=== PATIENT | male | born 1945 | race Caucasian/White ===

== ENCOUNTER 2023-05-16 12:56 | Inpatient (IN) | payer OTHER, SELFPAY ==
[2023-05-14] VITALS (7 sets, daily range): BP systolic 95–118; BP diastolic 58–86
[2023-05-14 16:00] LABS: % Basophils 0.4 % (0-2); % Eosinophils 0.6 % (0-6); % Lymphocytes 10.4 % (20.5-51.1); % Monocytes 9.2 % (1.7-9.3); % Neutrophils 78.4 % (42.2-75.2); Absolute Eosinophils 0.1 10^3/uL (0-0.7); Absolute Immature Granulocytes 0.1 10^3/uL (0-0.05); Absolute Lymphocytes 0.9 10^3/uL (1.2-3.4); Absolute Monocytes 0.8 10^3/uL (0.1-0.6); Absolute Neutrophils 6.4 10^3/uL (1.4-6.5); Hematocrit 28.1 % (39.0-52.0); Hemoglobin 9.3 g/dL (13.0-18.0); Mean Corp Hgb Conc. 33.1 g/dL (33.0-37.0); Mean Corpuscular Hgb 30.2 pg (27.0-31.0); Mean Corpuscular Volume 91.2 fL (80.0-94.0); Mean Platelet Volume 9.3 fL (7.4-10.4); Nucleated Red Blood Cells % 0 % (-); Platelet Count 255 10^3/uL (130-400); Red Blood Cell Count 3.08 10^6/uL (4.70-6.10); Red Cell Dist. Width 15.6 % (11.5-14.5); White Blood Cell Count 8.2 10^3/uL (4.8-10.8)
[2023-05-14 16:13] LABS: ALT (SGPT) 24 U/L (0-50); AST (SGOT) 31 U/L (17-59); Albumin 3.1 g/dl (3.5-5.0); Alkaline Phosphatase 85 U/L (38-126); Blood Urea Nitrogen 27 mg/dl (9-20); Calcium 8.7 mg/dl (8.4-10.2); Carbon Dioxide 25 mmol/L (22-30); Chloride 103 mmol/L (98-107); Glucose 120 mg/dl (70-99); Potassium 4.2 mmol/L (3.5-5.1); Sodium 135 mmol/L (135-145); Total Bilirubin 0.7 mg/dl (0.2-1.3); Total Protein 5.5 g/dl (6.3-8.2); eGFR > 60.00
[2023-05-14 16:24] LABS: Troponin I < 0.012 ng/ml
[2023-05-14 19:51] LABS: Troponin I < 0.012 ng/ml
--- NOTE | 2023-05-14 20:11 | ED.GENMED ---
History of Present Illness
General
Chief Complaint: Dizziness
Source: patient
Exam Limitations: none
Time Seen by Provider: 05/14/23 18:53
Nursing documentation reviewed up to this point in time: agreed with
Travel History
Have you had any contact with someone who has COVID-19?: No
Do you have any symptoms of coronavirus? Fever > 100 degrees, chills, cough, shortness of breath, sore throat, loss of taste or smell, muscle aches, or headache?: No
History of Present Illness
History of Present Illness:
77-year-old male with a past medical history of CHF, hypertension, hyperlipidemia, diabetes who presents to the emergency room for evaluation of dizziness. Patient reports onset of symptoms this morning around 10 or 11 AM and they have been
constant since that time. Patient reports feeling lightheaded 'like he might pass out.' He denies any room spinning sensation. No nausea or vomiting. He denies any headache. No abdominal or flank pain. He denies any chest pain or shortness of
breath and does not have any palpitations. He says he was admitted 2 or [address] [facility] for similar symptoms.
Past History
Past History
ED Past Medical History: CVA, GERD, HTN and NIDDM
ED Past Surgical History: Cholecystectomy, Orthopedic and Other (Gastric bypass)
Patient has exhibited threatening behavior?: No
PSI?: No
Social History
Tobacco: Former smoker
Alcohol: None
Drug: None
Personal:
Living: with family
Employment: Not employed
Family History
Family History: Other (Noncontributory)
Review of Systems
Review of Systems
All Other Systems: ROS reviewed and negative except as documented in HPI and ROS
Constitutional: Denies fever or chills
EENT: Denies sore throat or runny nose
Respiratory: Denies cough or trouble breathing
Cardiac: Denies chest pain, diaphoresis or palpitations
ABD/GI: Denies abdominal pain, nausea, vomiting or diarrhea
: Denies flank pain
Musculoskeletal: Denies neck pain or back pain
Neurological: Reports dizzy; Denies headache, weakness or numbness
Phy Exam
Physical Exam
Physical Exam:
General: Awake, alert, oriented x3; no acute distress
Head: Normocephalic, atraumatic
Eyes: Conjunctiva normal, EOMI, pupils equal round reactive to light bilaterally
Throat: Airway intact, handling secretions
Neck: Trachea midline, supple without meningismus
Lungs: Clear to auscultation bilaterally, no wheezing, rales, rhonchi
Heart: Regular rate and rhythm, no murmurs, gallops, or rubs
Abd: Soft, non distended, nontender
Rectal: No rectal masses, brown stool Hemoccult negative
Neuro: Cranial nerves grossly intact, speech fluid
Skin: no rash
Extremities: Patient has some edema in the right forearm and some erythema on the dorsum of the right forearm with tenderness to the touch; good pulses in all extremities, no edema in the lower extremities
Scores
Heart Failure Risk
Heart Failure Risk Score: Not Applicable
Heart Score for Chest Pain Patients
STEMI patient?: Not applicable
Withdrawal Assessment of Alcohol
Withdrawal Assessment Completed?: Not applicable
Course
Orders/Labs/Results
Orders:
Orders
05/14/23 15:40
Electrocardiogram (*1) Urgent
Reason for Study: Vertigo / Dizzy
EKG- Treatment ONCE
05/14/23 15:51
CMP [Comprehensive Metabolic Panel] Urgent
Complete Blood Count/With Diff Urgent
Troponin I Urgent
05/14/23 19:07
US Periph Venous UPPER Ext RT Urgent
Comment:
Reason For Exam: RUE redness and swelling
05/14/23 19:18
Troponin I Urgent
05/14/23 20:30
Type+Screen Urgent
PTT Urgent
Prothrombin Time Urgent
Abnormal Lab Results
05/14/23 05/14/23
15:51 20:30
RBC 3.08 L 10^6/uL
(4.70-6.10)
Hgb 9.3 L g/dL
(13.0-18.0)
Hct 28.1 L %
(39.0-52.0)
RDW 15.6 H %
(11.5-14.5)
Abs Immat Gran (auto) 0.1 H 10^3/uL
(0-0.05)
Absolute Lymphs (auto) 0.9 L 10^3/uL
(1.2-3.4)
Absolute Monos (auto) 0.8 H 10^3/uL
(0.1-0.6)
Immature Gran % 1.0 H %
(0-0.5)
Neutrophils % 78.4 H %
(42.2-75.2)
Lymphocytes % 10.4 L %
(20.5-51.1)
PT 15.0 H Sec
(11.4-14.6)
BUN 27 H mg/dl
(9-20)
Glucose 120 H mg/dl
(70-99)
Total Protein 5.5 L g/dl
(6.3-8.2)
Albumin 3.1 L g/dl
(3.5-5.0)
05/14/23 15:51
05/14/23 15:51
Vital Signs
Initial and Last Documented VS:
Initial Vital Signs
Temp Pulse Resp BP Pulse Ox
37.1 C 71 16 95/59 99
05/14/23 15:40 05/14/23 15:40 05/14/23 15:40 05/14/23 15:40 05/14/23 15:40
Last Documented Vital Signs
Temp Pulse Resp BP Pulse Ox
37.1 C 69 15 101/65 99
05/14/23 15:40 05/14/23 20:30 05/14/23 20:28 05/14/23 20:28 05/14/23 20:30
MDM/Problems Addressed
Differential Diagnosis Includes:
Dysrhythmia, symptomatic anemia, electrolyte derangement, vagal event, hypoglycemia, dehydration
MDM/Problems Addressed:
77-year-old male presents after a few hours of dizziness today that has since resolved. He now feels fine and is asymptomatic. He did have a slightly low blood pressure in triage 95/59 which is normalized by my assessment; vital signs otherwise
within normal limits. His physical exam is as above. Plan to place an IV check labs including a CBC and a CMP; will check troponins given his cardiac risk factors although with no chest pain or dyspnea an acute cardiac event seems unlikely. Will
monitor closely reassess after the above.
Initial labs reviewed: CBC shows anemia to 9.3�this is new compared to prior labs drawn here in April 2023 (last hemoglobin was 04/02/2023 and it was 13.7 although in the past he has had his hemoglobins ranging between 10 and 12). I did call over
to [facility] to ask about hemoglobin during his most recent admission 2 weeks ago�apparently on May 01 at discharge had hemoglobin of 9.5. No significant change compared to 2 weeks ago. He is Hemoccult here is negative he has no bleeding.
Right upper extremity ultrasound shows extensive acute occlusive thrombosis throughout the right cephalic vein in the right forearm. No DVT. Given extent incompletely occlusive thrombus discussed case with hematology who did recommend
anticoagulation with Eliquis 5 mg twice daily x 6 weeks despite lack of DVT. Patient says that he was previously on Eliquis for atrial fibrillation but is unsure if he is on it still. Will provide 5 mg dose now. I had a long discussion with the
patient although he was initially feeling bit better he says he started to feel dizzy again and is concerned about his ability to get around now at home because of this. With persistent symptoms and new anemia at least since early April
(although not acutely changed compared to 2 weeks ago) we will admit for continued evaluation and monitoring. Discussed with hospitalist for admission.
*Radiology
Radiology exam reviewed: radiology read reviewed
*Pulse Oximetry
Patient hypoxic: no
*EKG
Interpreted by ED Provider?: Yes
Heart Rate: 71
Rate: normal
Rhythm: sinus
[place]: normal axis
Interval: normal interval
QRS Pattern: normal QRS
Ischemia: no ischemia
*Critical Care Note
Total Time (30-74mins, 75-104mins- exclusive of procedures): Not Applicable
Data Reviewed
Review of Other/Old Records Reveals: Labs and Records
Source: patient
Patient Management
Discussion with other providers: Hospitalist (Discussed with hospitalist) and Manager Communication (Discussed with hematology)
Escalation/DeEscalation of care consider admission/obs:
Admission indicated
ED Attending Note
-
Portions of this chart may have been created with voice recognition software.� Occasional wrong word or��sound alike� substitutions may have occurred due to the inherent limitations of voice recognition software.
Discharge Plan
Departure
Prescriptions:
No Action
ferrous sulfate [FeroSul] 325 MG tablet
325 mg PO HS
metformin 1,000 MG tablet
1,000 mg PO DAILY
gabapentin 100 MG capsule
200 mg PO TID
Myrbetriq 25 MG tablet extended release 24 hr
25 mg PO DAILY
aspirin 81 MG tablet,delayed release (DR/EC)
81 mg PO DAILY
Rx Instructions:
over the counter
losartan 25 mg Tablet
25 mg PO HS 30 Days Qty: 30 0RF
cyanocobalamin (vitamin B-12) 100 mcg Tablet
100 mcg PO DAILY
citalopram 40 mg Tablet
40 mg PO DAILY
pravastatin 40 mg Tablet
40 mg PO HS
tamsulosin 0.4 mg Capsule
0.4 mg PO HS
magnesium 200 mg Tablet
200 mg PO DAILY
cholecalciferol (vitamin D3) 25 mcg (1,000 unit) Tablet
25 mcg PO DAILY
sildenafil [Viagra] 25 mg Tablet
25 mg PO DAILY PRN (Reason: ED)
spironolactone 25 mg Tablet
25 mg PO DAILY Qty: 30 0RF
aripiprazole 15 mg Tablet
30 mg PO DAILY Qty: 30 0RF
furosemide [Lasix] 40 mg Tablet
60 mg PO DAILY
venlafaxine 150 mg Capsule,Extended Release 24hr
150 mg PO DAILY
trazodone 100 mg tablet
100 mg PO HS
docusate sodium 100 mg Capsule
100 mg PO BID PRN (Reason: constipation)
tramadol 50 mg Tablet
50 mg PO BID PRN (Reason: moderate pain) 7 Days Qty: 14 0RF
Patient Comments:
07/06/2022: last filled 06/26/22, 20 tabs for 10 days from [facility]
amoxicillin-pot clavulanate 875-125 mg tablet
1 tab PO BID Qty: 7 0RF
Referrals:
William Renner DO [Family Provider] -
Interventions
Interventions:
*ED COVID-19 Vaccine History Last Done: 05/14/23 15:47
ED- Neurological Assessment Last Done: 05/14/23 19:25
ED- Cardiac Assessment Last Done: 05/14/23 19:25
ED Swallowing Screen Last Done: 05/14/23 19:27
[2023-05-14 20:51] LABS: INR 1.15
[2023-05-14 20:52] LABS: APTT 30.6 Sec (23.4-35.0)
[2023-05-14] MEDS: NSS 500 IV (22:27)
[2023-05-14 22:50] LABS: Iron 34 ug/dl (49-181)
[2023-05-14 22:59] LABS: Percent Saturation 10 % (20-50); Total Iron Binding Capacity 310 ug/dl (261-462)
--- NOTE | 2023-05-14 22:59 | HPS.HSE ---
Addendum entered and electronically signed by MANDA Kaplan 05/15/23 16:08:
hxt of atrial fib.
-EKG with NSR with PAC's
-as per patient follows PCP for atrial fib
-on Eliquis for atrial fib
Addendum entered and electronically signed by Papa Guerrero DO 05/15/23 00:00:
Patient seen and examined independently. Agree with findings and plan as set forth by MANDA Kaplan.
Patient is a 77y M with PMH significant for CHF, HTN and A-Fib who presents to ED complaining of lightheadedness since early this AM. Patient denies any syncope or fall. No room spinning sensation / dizziness. No chest pain, dyspnea,
palpitations, etc. Patient also notes RUE swelling - which he states has been present for months and began following IV occlusion during his prior admission here in July.
Ass:
Lightheadedness
RUE Occlusive Thrombus - Probably Chronic
Iron Deficiency Anemia
Chronic HFpEF
ASCVD
Paroxysmal Atrial Fibrillation
Benign Hypertension
DM-II
GERD
Anxiety / Depression
Chronic Right Foot Drop
Plan:
Observe overnight for further evaluation and treatment.
Etiology of lightheaded sensation is unclear. Doubt it is related to incidental diagnosis of RUE thrombosis.
Monitor on tele overnight.
Hold diuretics acutely.
Follow orthostatic signs.
PT / OT evaluations.
Continue on Eliquis for now - Consult Hematology for other recommendations re: RUE thrombus / alternate agent / etc.
Monitor for any new / recurrent symptoms.
Original Note:
Family Physician
-
Family Physician: William Renner
Chief Complaint
-
dizzy
lightheaded
History of Present Illness
77-year-old male with a past medical history of CHF, hypertension, hyperlipidemia, diabetes ,atrial fib who presents to the emergency room for evaluation of dizziness.�stated lightheaded. since this morning. He denies any room spinning sensation.�
No nausea or vomiting.� He denies any headache.� No abdominal or flank pain.� He denies any chest pain or shortness of breath and does not have any palpitations. denied dysuria or hematuria.
stated right UE edema for long time since the previous admission here. his iv was occluded. he had right UE swelling since then. denied any right hand pain. started on eliquis for EXTENSIVE ACUTE OCCLUSIVE THROMBOSIS throughout the RIGHT CEPHALIC
VEIN in the RIGHT FOREARM.
admitting for further management.
Medical History
Past Medical History
Past Medical History: Reports Other
Additional Past Medical History:
chf
atrial fib
CAD
CVA
chronic right foot drop
htn
DM2
GERD
depression, anxiety
Past Surgical History: Reports Other
Additional Past Surgical History:
cholecystectomy
gastric bypass
Social History
Tobacco: Non-smoker
Alcohol: None
Drug: None
Personal:
Living: With Family
Family History
Family History: Not pertinent
Allergies / Home Medications
Allergies reflects when Allergies were last updated in [facility].
Home Medications with original date entered in [facility]
Allergy/Medication List:
Allergies
Allergy/AdvReac Type Severity Reaction Status Date / Time
meperidine HCl [From Demerol] Allergy gets hyper Verified 05/14/23 15:47
ondansetron [From Zofran] Allergy N/V Verified 05/14/23 15:47
Home Medications
ferrous sulfate 325 mg (65 mg iron) tablet (FeroSul) 325 mg PO HS Supplement 04/28/19
metformin 1,000 mg tablet 1,000 mg PO DAILY Diabetes 04/28/19
gabapentin 100 mg capsule 200 mg PO TID Neurological Condition 10/30/21
mirabegron 25 mg tablet,extended release 24 hr (Myrbetriq) 25 mg PO DAILY Urinary issue 10/30/21
aspirin 81 mg tablet,delayed release 81 mg PO DAILY Blood clot prevention/tx 10/31/21
losartan 25 mg tablet 25 mg PO HS 30 days #30 tabs 11/18/21
cholecalciferol (vitamin D3) 25 mcg (1,000 unit) tablet 25 mcg PO DAILY Supplement 01/06/22
citalopram 40 mg tablet 40 mg PO DAILY Mental Health/Anxiety 01/06/22
cyanocobalamin (vitamin B-12) 100 mcg tablet 100 mcg PO DAILY Supplement 01/06/22
magnesium 200 mg tablet 200 mg PO DAILY Supplement 01/06/22
pravastatin 40 mg tablet 40 mg PO HS High cholesterol 01/06/22
sildenafil 25 mg tablet (Viagra) 25 mg PO DAILY PRN ED 01/06/22
tamsulosin 0.4 mg capsule 0.4 mg PO HS Urinary issue 01/06/22
aripiprazole 15 mg tablet 30 mg PO DAILY #30 tabs 01/11/22
spironolactone 25 mg tablet 25 mg PO DAILY #30 tabs 01/11/22
docusate sodium 100 mg capsule 100 mg PO BID PRN constipation 07/06/22
furosemide 40 mg tablet (Lasix) 60 mg PO DAILY Fluid retention/Swelling 07/06/22
trazodone 100 mg tablet 100 mg PO HS Mental Health/Anxiety 07/06/22
venlafaxine 150 mg capsule,extended release 24 hr 150 mg PO DAILY Mental Health/Anxiety 07/06/22
tramadol 50 mg tablet 50 mg PO BID PRN moderate pain 7 days #14 tabs 07/07/22
amoxicillin 875 mg-potassium clavulanate 125 mg tablet 1 tab PO BID #7 tabs 08/06/22
Review of Systems
-
Constitutional: Reports No Symptoms
EENT: Reports No Symptoms
Respiratory: Reports No Symptoms
Cardiac: Reports No Symptoms
Abdomen/GI: Reports No Symptoms
: Reports No Symptoms
Musculoskeletal: Reports No Symptoms
Skin: Reports No Symptoms
Neurological: Reports Dizzy
Endocrine: Reports No Symptoms
Hematologic/Lymphatic: Reports No Symptoms
Psych: Reports No Symptoms
Physical Exam
Vital Signs
Vital Signs
Temp Pulse Resp BP Pulse Ox
98.8 F 67 19 96/59 97
05/14/23 15:40 05/14/23 22:45 05/14/23 22:45 05/14/23 22:00 05/14/23 22:45
Physical Exam
General: Well Developed, Well Nourished and No Apparent Distress
HEENT: NormoCephalic, Moist mucous membranes and Atraumatic
Respiratory: Clear
Cardiac: S1/S2 and Regular Rhythm; No Murmur or Rub
GI: Soft, Non Tender, Non Distended and Normal Bowel Sounds; No Organomegaly
Rectal: Deferred by Provider
Musculoskeletal: No Clubbing, No Cyanosis and Other (righ arm swelling)
Skin: No Rash
Neuro: AO x 3 and Nonfocal/grossly intact
Psych: Calm
Laboratory Results
-
05/14/23 15:51
05/14/23 15:51
Laboratory Results
PT 15.0 Sec (11.4-14.6) H 05/14/23 20:30
INR 1.15 05/14/23 20:30
APTT 30.6 Sec (23.4-35.0) 05/14/23 20:30
Total Bilirubin 0.7 mg/dl (0.2-1.3) 05/14/23 15:51
AST 31 U/L (17-59) 05/14/23 15:51
ALT 24 U/L (0-50) 05/14/23 15:51
Alkaline Phosphatase 85 U/L (38-126) 05/14/23 15:51
Troponin I < 0.012 ng/ml 05/14/23 19:18
Data Reviewed
-
Ultrasound: Report Reviewed by me
Lab Data: Labs Reviewed by me
Impression/Plan
-
#right UE thrombus in cephalic vein
-eliquis 5mg bid
-duplex with EXTENSIVE ACUTE OCCLUSIVE THROMBOSIS throughout the RIGHT CEPHALIC VEIN in the RIGHT FOREARM.
#dizzy/lightheaded
-obtain orthostatics
-PT/OT consult
#iron def anemia
-hgb 9.3
-iron 34, TIBC, ferritin,b12, folate pending
-heme test negative
-ferrous sulfate continued
#HX chr HFpEF
- on PO Lasix, Aldactone� and Losartan
-not in acute exacerbation
#Constipation -
- cont OP bowel regimen.
#CAD -with prior stenting in 1999.
#HX stroke -in the year 2019
#HLD
- on ASA and -on Pravastatin
#Chronic right foot drop -unclear if due to peripheral neuropathy versus prior stroke.�
-He uses a brace/walker
#Essential hypertension
-BP on soft side
#DM2
HgA1c 6.7
-continue metformin
- SSI.�
#GERD
-on omeprazole.
#Depression/anxiety -continue Abilify, venlafaxine, citalopram.
full code
[2023-05-15] VITALS (10 sets, daily range): BP systolic 99–136; BP diastolic 53–85; PULSE 68–117; O2SAT 98; BMI 30.5
[2023-05-15 00:43] LABS: Glucose - Point of Care 153 mg/dl (70-99)
[2023-05-15 04:00] LABS: Ferritin 16.9 ng/ml (17.9-464.0)
[2023-05-15 04:32] LABS: Folate 7.5 ng/ml (2.76-20); Vitamin B12 684 pg/ml (239-931)
[2023-05-15 08:07] LABS: Hematocrit 27.2 % (39.0-52.0); Hemoglobin 9.1 g/dL (13.0-18.0); Mean Corp Hgb Conc. 33.5 g/dL (33.0-37.0); Mean Corpuscular Hgb 32.2 pg (27.0-31.0); Mean Corpuscular Volume 96.1 fL (80.0-94.0); Platelet Count 184 10^3/uL (130-400); Red Blood Cell Count 2.83 10^6/uL (4.70-6.10); Red Cell Dist. Width 15.4 % (11.5-14.5); White Blood Cell Count 5.4 10^3/uL (4.8-10.8)
[2023-05-15 08:28] LABS: Glucose - Point of Care 168 mg/dl (70-99)
[2023-05-15 08:33] LABS: Blood Urea Nitrogen 22 mg/dl (9-20); Calcium 8.8 mg/dl (8.4-10.2); Carbon Dioxide 27 mmol/L (22-30); Chloride 105 mmol/L (98-107); Estimated Creatinine Clearance 78 ml/min; Glucose 124 mg/dl (70-99); Potassium 4.3 mmol/L (3.5-5.1); Sodium 136 mmol/L (135-145); eGFR > 60.00
[2023-05-15] MEDS: MYRBETRIQ EXTENDED RELEASE 25 MG PO (08:47)
[2023-05-15] MEDS: CELEXA 40 MG PO (08:47)
[2023-05-15] MEDS: NEURONTIN 200 MG PO ×2 (08:47→16:18)
[2023-05-15] MEDS: ASPIR LOW (ENTERIC COATED) 81 MG PO (08:47)
[2023-05-15] MEDS: MAGNESIUM OXIDE 250 MG PO (08:47)
[2023-05-15] MEDS: VITAMIN D3 (cholecalciferol) 1000 UNITS PO (08:48)
[2023-05-15] MEDS: VITAMIN B-12 100 MCG PO (08:48)
[2023-05-15] MEDS: ABILIFY 30 MG PO (08:48)
[2023-05-15] MEDS: GLUCOPHAGE 1000 MG PO (08:48)
[2023-05-15] MEDS: EFFEXOR XR 150 MG PO (08:48)
[2023-05-15] MEDS: ELIQUIS 5 MG PO (08:48)
--- NOTE | 2023-05-15 09:34 | PTCARENOTE ---
symptomatic orthostatic hypotension when checking his vitals around 0900. pt was 136/69 sitting w/ 75 HR and standing was dizzy with a 116/82 bp and 85 HR. it is charted in his worklist.
[2023-05-15 11:18] LABS: Glucose - Point of Care 115 mg/dl (70-99)
[2023-05-15 12:35] LABS: Glycohemoglobin (HgbA1c) 5.6 % (4.0-5.6)
--- NOTE | 2023-05-15 14:14 | PTCARENOTE ---
per patients daughter he has not remembered to take his eliquis since 05/10. she also stated that on telehealth stream yesterday PCP was going to start her father on a 'memory aid' medication. patient and daughter were not aware of the name of the
medication. this nurse called patient pharmacy and they stated they have not received any new prescriptions for this patient.
--- NOTE | 2023-05-15 15:54 | W.PN.HOSP.TC ---
Today's Communication/Plan
-
monitor ortho vitals
hold BP meds
continue pt/ot
Assessment / Plan
Assessment / Plan
# Orthostatic hypotension
Chronic dizziness
-Patient have ongoing problems with dizziness for for few months.
-suspecting component of orthostasis as patient states her blood pressure dropped 15 points on vital checks, although cannot fully classify as orthostasis by criteria suspecting some component present explain symptoms
-Would hold patient all blood pressure medication
-Compression stocking ordered
-Although patient unable to clarify clearly, maintaining on meclizine as needed as well
-Physical therapy evaluated patient require some support
# Right Cephalic vein thrombus
-duplex with EXTENSIVE ACUTE OCCLUSIVE THROMBOSIS throughout the RIGHT CEPHALIC VEIN in the RIGHT FOREARM.
-Patient have recent admission in [facility] and had problem with infected IV line
-continue home eliquis therapy.
# Memory problems
-Patient has been evaluated by neurology in outpatient basis and has been started on some medication, daughter does not know the name
# Chronic iron deficiency anemia
-Ferritin 17, iron 34 TIBC 310. folate/b12 within normal limit
-Stool MSAS negative
-Oral iron to continue
# Chronic diastolic congestive heart failure
-Continue on Lasix. No signs of exacerbation
Coronary disease with history of stenting
History of CVA
Hyperlipidemia
Chronic right foot drop
Essential hypertension -hold all medication for suspicion of orthostasis Hypotension
Hyperlipidemia
[id number] diabetes mellitus
GERD
Depression/anxiety
Full code
05/15 Discussed with Patient Daughter over the Phone. Patient Daughter Had Expressed Concerns about Patient Being Forgetful and Not Taking Pills at Time requiring repeated Hospitalization. Patient Spouse Is Not Able to Provide Help Due To Her Own
Issues. Patient have tried to get homeaid/nursing staff to help patient condition. Requesting different agency has some concerns with current agency staff. Will ask case briefer to address and provide resource/detail
Anticipated Discharge: Within 24 hours
Subjective/Interval History
-
Date of Service: May 15, 2023
Complaining of feeling dizzy
no associated headache/nausea/vomiting
Objective Data
-
Labs:
Laboratory Results
05/15/23
06:53
WBC 5.4
Hgb 9.1 L
Hct 27.2 L
Plt Count 184 D
Sodium 136
Potassium 4.3
Chloride 105
Carbon Dioxide 27
BUN 22 H
Creatinine 0.9
Glucose 124 H
Calcium 8.8
Vital Signs:
Vital Signs
Temp Pulse Resp BP Pulse Ox
97.7 F 70 18 112/58 99
05/15/23 11:00 05/15/23 11:00 05/15/23 11:00 05/15/23 11:00 05/15/23 11:00
I&O
05/14/23 05/15/23 05/16/23
06:59 06:59 06:59
Intake Total 360 / 360
Output Total 350 / 350
Balance 10 / 10
Review of Systems
-
Respiratory: Reports No Symptoms
Cardiac: Reports No Symptoms
Abdomen/GI: Reports No Symptoms
Neuro: Reports Dizzy
Physical Exam
-
General: Negative Appears in Distress
HEENT: Negative Oxygen
Respiratory: Clear to Auscultation
Cardiac: Regular Rhythm and S1/S2; Negative Murmur
GI: Soft, Nontender and Nondistended
Musculoskeletal: No Edema
Neuro: Awake, Alert, Oriented and No Motor Deficits
--- NOTE | 2023-05-15 17:13 | CON.ONC ---
Impression
Impression
Iron deficiency anemia
Dizziness
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
Plan
Plan
Recommend GI consult for iron deficiency anemia, Hgb drop of 4g in 6 weeks
Had recommended Eliquis for extensive UE thrombosis but would not d/c from hospital on this due to iron deficiency anemia. He is okay with using hot compresses.
Follow CBC for evidence of bleeding.
Heme check all stools.
Thank you for consult, will follow along with you.
Patient History
History of Present Illness
77-year-old male with a past medical history of CHF, hypertension, hyperlipidemia, diabetes who presents to the emergency room for evaluation of dizziness.� Patient reports onset of symptoms this morning around 10 or 11 AM and they have been
constant since that time.� Patient reports feeling lightheaded 'like he might pass out.'� He denies any room spinning sensation.� No nausea or vomiting.� He denies any headache.� No abdominal or flank pain.� He denies any chest pain or shortness of
breath and does not have any palpitations.� He says he was admitted 2 or 3 weeks ago at [facility] for similar symptoms. In ED c/o right UE edema for long time since the previous admission here when his iv was occluded. He has had
right UE swelling since then.� Case d/w ED last night with recommendation to started on Eliquis for symptomatic EXTENSIVE ACUTE OCCLUSIVE THROMBOSIS throughout the RIGHT CEPHALIC VEIN in the RIGHT FOREARM. He also has a history of iron deficiency
with 13.7 on 04/02/23, now 9.1.
Past-Medical/Surgical History
Past Medical History
chf
atrial fib
CAD
CVA
chronic right foot drop
htn
DM2
GERD
depression, anxiety
Past Surgical History
cholecystectomy
gastric bypass
Social History
Tobacco: Non-smoker
Alcohol: None
Drug: None
Personal:
Living: With Family
Family History
Family History: Not pertinent
Patient Medication
Medication Instructions Recorded Confirmed Last Taken Type
ferrous sulfate 325 mg (65 mg 325 mg PO HS Supplement 04/28/19 05/14/23 10/17/21 23:00 History
iron) tablet (FeroSul)
metformin 1,000 mg tablet 1,000 mg PO DAILY Diabetes 04/28/19 05/14/23 10/18/21 08:00 History
gabapentin 100 mg capsule 200 mg PO TID Neurological 10/30/21 05/14/23 Unknown History
Condition
mirabegron 25 mg tablet,extended 25 mg PO DAILY Urinary issue 10/30/21 05/14/23 Unknown History
release 24 hr (Myrbetriq)
aspirin 81 mg tablet,delayed 81 mg PO DAILY Blood clot 10/31/21 05/14/23 Unknown History
release prevention/tx
losartan 25 mg tablet 25 mg PO HS 30 days #30 tabs 11/18/21 05/14/23 Unknown Rx
cholecalciferol (vitamin D3) 25 25 mcg PO DAILY Supplement 01/06/22 05/14/23 Unknown History
mcg (1,000 unit) tablet
citalopram 40 mg tablet 40 mg PO DAILY Mental 01/06/22 05/14/23 Unknown History
Health/Anxiety
cyanocobalamin (vitamin B-12) 100 100 mcg PO DAILY Supplement 01/06/22 05/14/23 Unknown History
mcg tablet
magnesium 200 mg tablet 200 mg PO DAILY Supplement 01/06/22 05/14/23 Unknown History
pravastatin 40 mg tablet 40 mg PO HS High cholesterol 01/06/22 05/14/23 Unknown History
sildenafil 25 mg tablet (Viagra) 25 mg PO DAILY PRN ED 01/06/22 05/14/23 Unknown History
tamsulosin 0.4 mg capsule 0.4 mg PO HS Urinary issue 01/06/22 05/14/23 Unknown History
aripiprazole 15 mg tablet 30 mg PO DAILY #30 tabs 01/11/22 05/14/23 Unknown Rx
spironolactone 25 mg tablet 25 mg PO DAILY #30 tabs 01/11/22 05/14/23 Unknown Rx
docusate sodium 100 mg capsule 100 mg PO BID PRN constipation 07/06/22 05/14/23 Unknown History
furosemide 40 mg tablet (Lasix) 60 mg PO DAILY Fluid 07/06/22 05/14/23 Unknown History
retention/Swelling
trazodone 100 mg tablet 50 mg PO HS Mental Health/Anxiety 07/06/22 05/15/23 Unknown History
venlafaxine 150 mg 150 mg PO DAILY Mental 07/06/22 05/14/23 Unknown History
capsule,extended release 24 hr Health/Anxiety
tramadol 50 mg tablet 50 mg PO BID PRN moderate pain 7 07/07/22 05/14/23 Unknown Rx
days #14 tabs
apixaban 5 mg tablet (Eliquis) 5 mg PO BID 05/14/23 05/14/23 Unknown History
Active Medications
Generic Name Dose Route Start Last Admin
Trade Name Freq PRN Reason Stop Dose Admin
Apixaban 5 mg 05/15/23 08:00 05/15/23 08:48
Apixaban (Eliquis) 5 Mg Tablet PO 06/12/23 07:59 5 mg
BID RAVEN Administration
Aripiprazole 30 mg 05/15/23 08:00 05/15/23 08:48
Aripiprazole 15 Mg Tablet PO 06/12/23 07:59 30 mg
DAILY RAVEN Administration
Aspirin 81 mg 05/15/23 08:00 05/15/23 08:47
Aspirin 81 Mg (Enteric Coated) Tablet PO 06/12/23 07:59 81 mg
DAILY RAVEN Administration
Cholecalciferol 1,000 units 05/15/23 08:00 05/15/23 08:48
Cholecalciferol (Vitamin D3) 1,000 Units Tablet (25 Mcg) PO 06/12/23 07:59 1,000 units
DAILY RAVEN Administration
Citalopram Hydrobromide 40 mg 05/15/23 08:00 05/15/23 08:47
Citalopram 40 Mg Tablet PO 06/12/23 07:59 40 mg
DAILY RAVEN Administration
Cyanocobalamin 100 mcg 05/15/23 08:00 05/15/23 08:48
Cyanocobalamin (Vitamin B-12) 100 Mcg Tablet PO 06/12/23 07:59 100 mcg
DAILY RAVEN Administration
Dextrose 12.5 grams 05/15/23 00:32
Dextrose 50% (0.5 Grams/Ml) 50 Ml Syringe IV 06/12/23 00:31
[id number] PRN
hypoglycemia
Protocol
Docusate Sodium 100 mg 05/15/23 00:32
Docusate Sodium 100 Mg Capsule PO 06/12/23 00:31
BID PRN
constipation
Ferrous Sulfate 325 mg 05/15/23 22:00
Ferrous Sulfate 325 Mg Tablet PO 06/12/23 21:59
HS RAVEN
Gabapentin 200 mg 05/15/23 08:00 05/15/23 16:18
Gabapentin 100 Mg Capsule PO 06/12/23 07:59 200 mg
TID RAVEN Administration
Glucagon 1 mg 05/15/23 00:32
Glucagon 1 Mg Vial IM 06/12/23 00:31
PRN PRN
hypoglycemia
Protocol
Insulin Aspart 0 units 05/15/23 07:30 05/15/23 11:30
Insulin Aspart Low Resistance 300 Units/3 Ml Pen.Injctr SC 06/12/23 07:29 Not Given
AC RAVEN
Protocol
Magnesium Oxide 250 mg 05/15/23 08:00 05/15/23 08:47
Magnesium Oxide 500 Mg Tablet PO 06/12/23 07:59 250 mg
DAILY RAVEN Administration
Meclizine HCl 25 mg 05/15/23 11:11
Meclizine 25 Mg Tablet PO 06/12/23 11:10
Q8HPRN PRN
vertigo
Metformin HCl 1,000 mg 05/15/23 08:00 05/15/23 08:48
Metformin 1000 Mg Regular Release Tablet PO 06/12/23 07:59 1,000 mg
DAILY RAVEN Administration
Mirabegron 25 mg 05/15/23 08:00 05/15/23 08:47
Mirabegron Extended Release 25 Mg Tab (Non Form) PO 06/12/23 07:59 25 mg
DAILY RAVEN Administration
Pravastatin Sodium 40 mg 05/15/23 22:00
Pravastatin 40 Mg Tablet PO 06/12/23 21:59
HS RAVEN
Sodium Chloride 0 flush 05/15/23 01:00
Sodium Chloride 0.9% (Flush) Syringe IV 06/12/23 00:59
PER PROTOCOL RAVEN
Tamsulosin HCl 0.4 mg 05/15/23 22:00
Tamsulosin 0.4 Mg Capsule PO 06/12/23 21:59
HS RAVEN
Tramadol HCl 50 mg 05/15/23 00:32
Tramadol Hcl 50 Mg Tablet PO 06/12/23 00:31
BID PRN
moderate pain
Trazodone HCl 100 mg 05/15/23 22:00
Trazodone 100 Mg Tablet PO 06/12/23 21:59
HS RAVEN
Venlafaxine HCl 150 mg 05/15/23 08:00 05/15/23 08:48
Venlafaxine 150 Mg Extended Release Capsule PO 06/12/23 07:59 150 mg
DAILY RAVEN Administration
Review of Systems
-
History Source: Patient
All Other Systems: Reviewed and Negative
Physical Exam
-
General: Well Developed and Well Nourished
HEENT: Moist Mucous Membranes; Negative Jaundice
Cardiology: Normal Sinus Rhythm, S1 and S2
Pulmonary: Clear; Negative Wheezes
GI: Soft
Musculoskeletal: No Clubbing, No Cyanosis, No Edema and Other (R arm swelling)
Neurology: Non Focal
Skin: Warm and Dry
Hematologic / Lymphatic: No Lymphadenopathy
Psych: Calm and Intact Judgement/Insight
Labs
Lab Results
WBC 5.4 10^3/uL (4.8-10.8) 05/15/23 06:53
RBC 2.83 10^6/uL (4.70-6.10) L 05/15/23 06:53
Hgb 9.1 g/dL (13.0-18.0) L 05/15/23 06:53
Hct 27.2 % (39.0-52.0) L 05/15/23 06:53
MCV 96.1 fL (80.0-94.0) H 05/15/23 06:53
MCH 32.2 pg (27.0-31.0) H 05/15/23 06:53
MCHC 33.5 g/dL (33.0-37.0) 05/15/23 06:53
RDW 15.4 % (11.5-14.5) H 05/15/23 06:53
Plt Count 184 10^3/uL (130-400) D 05/15/23 06:53
MPV 10.0 fL (7.4-10.4) 05/15/23 06:53
Abs Immat Gran (auto) 0.1 10^3/uL (0-0.05) H 05/14/23 15:51
Absolute Neuts (auto) 6.4 10^3/uL (1.4-6.5) 05/14/23 15:51
Absolute Lymphs (auto) 0.9 10^3/uL (1.2-3.4) L 05/14/23 15:51
Absolute Monos (auto) 0.8 10^3/uL (0.1-0.6) H 05/14/23 15:51
Absolute Eos (auto) 0.1 10^3/uL (0-0.7) 05/14/23 15:51
Absolute Basos (auto) 0.0 10^3/uL (0-0.2) 05/14/23 15:51
Immature Gran % 1.0 % (0-0.5) H 05/14/23 15:51
Neutrophils % 78.4 % (42.2-75.2) H 05/14/23 15:51
Lymphocytes % 10.4 % (20.5-51.1) L 05/14/23 15:51
Monocytes % 9.2 % (1.7-9.3) 05/14/23 15:51
Eosinophils % 0.6 % (0-6) 05/14/23 15:51
Basophils % 0.4 % (0-2) 05/14/23 15:51
Creatinine 0.9 mg/dL (0.7-1.3) 05/15/23 06:53
05/14/23: iron sat 10%, ferritin 16.9
04/02/23: unremarkable CT A/P. Hgb 13.7
Vital Signs
Vital Signs
Temp Pulse Resp BP Pulse Ox
97.8 F 68 14 116/64 98
05/15/23 15:00 05/15/23 15:00 05/15/23 15:00 05/15/23 15:00 05/15/23 15:00
[2023-05-15 17:54] LABS: Glucose - Point of Care 130 mg/dl (70-99)
[2023-05-15] MEDS: COLACE 100 MG PO (20:29)
[2023-05-15] MEDS: FEOSOL 325 MG PO (20:31)
[2023-05-15] MEDS: PRAVACHOL 40 MG PO (20:31)
[2023-05-15] MEDS: FLOMAX 0.400000000000000022 MG PO (20:31)
[2023-05-15] MEDS: ULTRAM 50 MG PO (21:06)
[2023-05-15 21:39] LABS: Glucose - Point of Care 120 mg/dl (70-99)
[2023-05-16] VITALS (8 sets, daily range): BP systolic 85–137; BP diastolic 50–79; PULSE 62–140; O2SAT 99; BMI 29.9
[2023-05-16] MEDS: ULTRAM 50 MG PO ×2 (04:12→20:55)
--- NOTE | 2023-05-16 07:21 | CON.GI ---
Consultation
-
Date/Time Consultation Performed: 05/16/23
Performing Provider: Bob Cintron MD
Reason for Consultation: anemia
Medical History
Chief Complaint / HPI
Chief Complaint: weakness, arm swelling
History of Present Illness:
The patient is a 77-year-old male with past medical history as noted presents with worsening upper extremity swelling. He was found to have extensive thrombus and was started on Eliquis, though also noted to be significantly anemic with hemoglobin
of 9.1, which was down from 13.7 in April. He does not recall having anemia though looking back over the years he has had intermittent anemia. His last endoscopy and colonoscopy were with Dr. Awan In 2019 that were essentially normal, with
small polyp, lipomas and post gastric bypass. Studies here show iron deficiency anemia. He was hospitalized in January at [facility] with diarrhea which she states was black, though did not have any further workup then has been watching
carefully since then without any further signs of gross bleeding. Having brown stools now, denies any dysphagia, dyne aphasia, Colton pain, nausea or vomiting, weight loss.
Past Medical History
Past Medical History: Other (chf atrial fib CAD CVA chronic right foot drop htn DM2 GERD depression, anxiety)
Past Surgical History: Other (cholecystectomy gastric bypass)
Social History
Tobacco: Non-Smoker
Alcohol: None
Family History
Family History: Reviewed & Not Pertinent
Allergies / Home Medications
Allergy/AdvReac Type Severity Reaction Status Date / Time
meperidine HCl [From Demerol] Allergy gets hyper Verified 05/14/23 15:47
ondansetron [From Zofran] Allergy N/V Verified 05/14/23 15:47
Medication Instructions Recorded
ferrous sulfate 325 mg (65 mg 325 mg PO HS Supplement 04/28/19
iron) tablet (FeroSul)
metformin 1,000 mg tablet 1,000 mg PO DAILY Diabetes 04/28/19
gabapentin 100 mg capsule 200 mg PO TID Neurological 10/30/21
Condition
mirabegron 25 mg tablet,extended 25 mg PO DAILY Urinary issue 10/30/21
release 24 hr (Myrbetriq)
aspirin 81 mg tablet,delayed 81 mg PO DAILY Blood clot 10/31/21
release prevention/tx
losartan 25 mg tablet 25 mg PO HS 30 days #30 tabs 11/18/21
cholecalciferol (vitamin D3) 25 25 mcg PO DAILY Supplement 01/06/22
mcg (1,000 unit) tablet
citalopram 40 mg tablet 40 mg PO DAILY Mental 01/06/22
Health/Anxiety
cyanocobalamin (vitamin B-12) 100 100 mcg PO DAILY Supplement 01/06/22
mcg tablet
magnesium 200 mg tablet 200 mg PO DAILY Supplement 01/06/22
pravastatin 40 mg tablet 40 mg PO HS High cholesterol 01/06/22
sildenafil 25 mg tablet (Viagra) 25 mg PO DAILY PRN ED 01/06/22
tamsulosin 0.4 mg capsule 0.4 mg PO HS Urinary issue 01/06/22
aripiprazole 15 mg tablet 30 mg PO DAILY #30 tabs 01/11/22
spironolactone 25 mg tablet 25 mg PO DAILY #30 tabs 01/11/22
docusate sodium 100 mg capsule 100 mg PO BID PRN constipation 07/06/22
furosemide 40 mg tablet (Lasix) 60 mg PO DAILY Fluid 07/06/22
retention/Swelling
trazodone 100 mg tablet 50 mg PO HS Mental Health/Anxiety 07/06/22
venlafaxine 150 mg 150 mg PO DAILY Mental 07/06/22
capsule,extended release 24 hr Health/Anxiety
tramadol 50 mg tablet 50 mg PO BID PRN moderate pain 7 07/07/22
days #14 tabs
apixaban 5 mg tablet (Eliquis) 5 mg PO BID 05/14/23
Review of Systems
-
All other systems: A 12 pt ROS was Negative except as stated above in HPI
Vital Signs
Temp Pulse Resp BP Pulse Ox
97.5 F 84 20 107/63 100
05/16/23 03:55 05/16/23 03:55 05/16/23 03:55 05/16/23 03:55 05/16/23 03:55
Physical Exam
Exam
General: NAD
HEENT: MMM, anicteric, no lymphadenopathy
Heart: Regular, no murmurs
Lungs: CTA bilaterally
Abdomen: normal bowel sounds, soft, no tenderness, no rebound or guarding, no masses, bruits or ascites
Extremeties: no edema
Skin: no rashes
Results
WBC 5.4 10^3/uL (4.8-10.8) 05/15/23 06:53
Hgb 9.1 g/dL (13.0-18.0) L 05/15/23 06:53
Hct 27.2 % (39.0-52.0) L 05/15/23 06:53
MCV 96.1 fL (80.0-94.0) H 05/15/23 06:53
Plt Count 184 10^3/uL (130-400) D 05/15/23 06:53
Absolute Neuts (auto) 6.4 10^3/uL (1.4-6.5) 05/14/23 15:51
PT 15.0 Sec (11.4-14.6) H 05/14/23 20:30
INR 1.15 05/14/23 20:30
APTT 30.6 Sec (23.4-35.0) 05/14/23 20:30
Sodium 136 mmol/L (135-145) 05/15/23 06:53
Potassium 4.3 mmol/L (3.5-5.1) 05/15/23 06:53
Chloride 105 mmol/L (98-107) 05/15/23 06:53
Carbon Dioxide 27 mmol/L (22-30) 05/15/23 06:53
BUN 22 mg/dl (9-20) H 05/15/23 06:53
Creatinine 0.9 mg/dL (0.7-1.3) 05/15/23 06:53
Calcium 8.8 mg/dl (8.4-10.2) 05/15/23 06:53
Total Bilirubin 0.7 mg/dl (0.2-1.3) 05/14/23 15:51
AST 31 U/L (17-59) 05/14/23 15:51
ALT 24 U/L (0-50) 05/14/23 15:51
Alkaline Phosphatase 85 U/L (38-126) 05/14/23 15:51
Diagnostic Image Results:
Prior GI Procedures:
EGD:
Colonoscopy:
Assessment / Plan
-
1. Iron deficiency anemia: Likely multifactorial, has been intermittent over the years, in the setting of gastric bypass, though did have black stools in January, and 4 g drop since April, in need of anticoagulation, likely some component of GI
blood loss. At this point he is no gross bleeding now, and had been on Eliquis. Will plan EGD and colonoscopy on Wednesday after Eliquis washout, continue close observation for now and PPI daily given previous black stools in January.
-
-
Thank you for consultation and allowing me to participate in the patient's care. Please call the horizontal boring mill set up operator GI physician during the after hours with any questions or concerns.
[2023-05-16 07:49] LABS: Glucose - Point of Care 156 mg/dl (70-99)
[2023-05-16 08:57] LABS: Hematocrit 30.7 % (39.0-52.0); Hemoglobin 10.3 g/dL (13.0-18.0); Mean Corp Hgb Conc. 33.6 g/dL (33.0-37.0); Mean Corpuscular Hgb 32.2 pg (27.0-31.0); Mean Corpuscular Volume 95.9 fL (80.0-94.0); Mean Platelet Volume 9.9 fL (7.4-10.4); Platelet Count 215 10^3/uL (130-400); Red Cell Dist. Width 15.2 % (11.5-14.5)
[2023-05-16] MEDS: VITAMIN B-12 100 MCG PO (09:05)
[2023-05-16] MEDS: ABILIFY 30 MG PO (09:05)
[2023-05-16] MEDS: EFFEXOR XR 150 MG PO (09:05)
[2023-05-16] MEDS: VITAMIN D3 (cholecalciferol) 1000 UNITS PO (09:05)
[2023-05-16] MEDS: MYRBETRIQ EXTENDED RELEASE 25 MG PO (09:05)
[2023-05-16] MEDS: MAGNESIUM OXIDE 250 MG PO (09:05)
[2023-05-16] MEDS: GLUCOPHAGE 1000 MG PO (09:06)
[2023-05-16] MEDS: PROTONIX 40 MG PO (09:06)
[2023-05-16] MEDS: ANTIVERT 25 MG PO (09:06)
[2023-05-16] MEDS: CELEXA 40 MG PO (09:06)
[2023-05-16] MEDS: ASPIR LOW (ENTERIC COATED) 81 MG PO (09:06)
[2023-05-16 09:17] LABS: Blood Urea Nitrogen 21 mg/dl (9-20); Calcium 9.5 mg/dl (8.4-10.2); Carbon Dioxide 28 mmol/L (22-30); Chloride 100 mmol/L (98-107); Estimated Creatinine Clearance 77 ml/min; Glucose 132 mg/dl (70-99); Potassium 4.2 mmol/L (3.5-5.1); Sodium 138 mmol/L (135-145); eGFR > 60.00
--- NOTE | 2023-05-16 09:54 | CM ---
Addendum entered by Destiny Quiroga 05/16/23 14:50:
Per MD note, there has been caregivers in the home, but looking at alternative providers. Pt was switched to Inpatient status from OBS.
spoke with dtr who is not listed as contact in chart so CM could not follow up.
Original Note:
Initial assessment completed with pt at bedside.
Pt is a 77yr old male admitted on observation for orthostatic hypotension and Right Cephalic vein thrombus
At baseline, pt lives with his doretha in their own home.
Pt is indep. at baseline with mobility and ADLs and the use of a walker or cane. Drives
Pt has been to [facility] and has used [facility].
Pt to dc with no anticipated needs.
PCP; William Renner
Pharm; [facility]
PLAN; dc with no needs. Pt feels he will likely need wheelchair transport home.
[2023-05-16] MEDS: ProAmatine 5 MG PO (10:29)
[2023-05-16 12:54] LABS: Glucose - Point of Care 129 mg/dl (70-99)
--- NOTE | 2023-05-16 12:55 | W.PN.HOSP.TC ---
Today's Communication/Plan
-
change to inpatient
start oral lasix from tomorrow
f/u ortho vitals
Assessment / Plan
Assessment / Plan
# Orthostatic hypotension
Chronic dizziness
-Patient have ongoing problems with dizziness for for few months.
-suspecting component of orthostasis as patient states her blood pressure dropped 15 points on vital checks, although cannot fully classify as orthostasis by criteria suspecting some component present explain symptoms
-Would hold patient all blood pressure medication. adding midodrine 5mg bid .
-Compression stocking ordered
-Although patient unable to clarify clearly, maintaining on meclizine as needed as well if vertigo like symptoms
-Physical therapy evaluated patient require some support
# Right Cephalic vein thrombus
-duplex with EXTENSIVE ACUTE OCCLUSIVE THROMBOSIS throughout the RIGHT CEPHALIC VEIN in the RIGHT FOREARM.
-Patient have recent admission in [facility] and had problem with infected IV line
-Eliquis being held for need of EGD
# Memory problems
-Patient has been evaluated by neurology in outpatient basis and has been started on some medication, daughter does not know the name
# Chronic iron deficiency anemia
-Ferritin 17, iron 34 TIBC 310. folate/b12 within normal limit
-GI evaluated and planning to do EGD and colonoscopy on Wednesday
# Chronic diastolic congestive heart failure
-Decreasing dose of Lasix to 40 mg daily, start tomorrow.
-Avoid excessive diuresis with ongoing dizziness/orthostasis
Coronary disease with history of stenting
History of CVA
Hyperlipidemia
Chronic right foot drop
Essential hypertension -hold all medication for suspicion of orthostasis Hypotension
Hyperlipidemia
Xpw-bxijsue-oretggyjw diabetes mellitus
GERD
Depression/anxiety
Full code
05/15 Discussed with Patient Daughter over the Phone. Patient Daughter Had Expressed Concerns about Patient Being Forgetful and Not Taking Pills at Time requiring repeated Hospitalization. Patient Spouse Is Not Able to Provide Help Due To Her Own
Issues. Patient have tried to get homeaid/nursing staff to help patient condition. Requesting different agency has some concerns with current agency staff. Will ask correctional case manager to address and provide resource/detail
Anticipated Discharge: 24 - 48 hours
Subjective/Interval History
-
Date of Service: May 16, 2023
Did not have any dizziness
No other issues reported
Objective Data
-
Labs:
Laboratory Results
05/16/23
08:11
WBC 7.0
Hgb 10.3 L
Hct 30.7 L
Plt Count 215
Sodium 138
Potassium 4.2
Chloride 100
Carbon Dioxide 28
BUN 21 H
Creatinine 0.8
Glucose 132 H
Calcium 9.5
Vital Signs:
Vital Signs
Temp Pulse Resp BP Pulse Ox
97.5 F 78 20 105/65 100
05/16/23 07:37 05/16/23 07:37 05/16/23 07:37 05/16/23 10:29 05/16/23 12:25
I&O
05/15/23 05/16/23 05/17/23
06:59 06:59 06:59
Intake Total 360 / 360 1680 / 1680
Output Total 350 / 350 2350 / 2350
Balance -670 / -670
Review of Systems
-
Respiratory: Reports No Symptoms
Cardiac: Reports No Symptoms
Abdomen/GI: Reports No Symptoms
Physical Exam
-
General: Negative Appears in Distress
HEENT: Negative Oxygen
Respiratory: Clear to Auscultation
Cardiac: Regular Rhythm and S1/S2; Negative Murmur
GI: Soft, Nontender and Nondistended
Musculoskeletal: No Edema
Neuro: Awake, Alert, Oriented and No Motor Deficits
--- NOTE | 2023-05-16 18:51 | PTCARENOTE ---
182: pt arrived to floor from N to 2102. AOx3 pleasant, call abernathy in reach bed low.
[2023-05-16] MEDS: PRAVACHOL 40 MG PO (20:56)
[2023-05-16] MEDS: FLOMAX 0.400000000000000022 MG PO (20:56)
[2023-05-16] MEDS: ProAmatine PO (20:56)
[2023-05-16] MEDS: FEOSOL 325 MG PO (20:56)
[2023-05-17] VITALS (10 sets, daily range): BP systolic 78–120; BP diastolic 51–72; PULSE 71; BMI 29.8
[2023-05-17 05:36] LABS: Hematocrit 24.8 % (39.0-52.0); Hemoglobin 8.8 g/dL (13.0-18.0); Mean Corp Hgb Conc. 35.5 g/dL (33.0-37.0); Mean Corpuscular Hgb 33.3 pg (27.0-31.0); Mean Corpuscular Volume 93.9 fL (80.0-94.0); Mean Platelet Volume 9.6 fL (7.4-10.4); Platelet Count 171 10^3/uL (130-400); Red Blood Cell Count 2.64 10^6/uL (4.70-6.10); Red Cell Dist. Width 15.2 % (11.5-14.5); White Blood Cell Count 6.8 10^3/uL (4.8-10.8)
[2023-05-17 05:55] LABS: Blood Urea Nitrogen 23 mg/dl (9-20); Calcium 9.3 mg/dl (8.4-10.2); Carbon Dioxide 31 mmol/L (22-30); Chloride 100 mmol/L (98-107); Estimated Creatinine Clearance 69 ml/min; Glucose 108 mg/dl (70-99); Potassium 4.1 mmol/L (3.5-5.1); Sodium 137 mmol/L (135-145); eGFR > 60.00
--- NOTE | 2023-05-17 06:35 | W.PN.GI.CBS2 ---
Today's Communication / Plan
-
See assessment and plan for details.
Assessment / Plan
-
1. Iron deficiency anemia: Likely multifactorial, has been intermittent over the years, in the setting of gastric bypass, though did have black stools in January, and 4 g drop since April, in need of anticoagulation, likely some component of GI
blood loss. He did have 1 bloody bowel movement yesterday which was new, though none further, remains hemodynamically stable. Will plan EGD and colonoscopy, after Eliquis washout, continue close observation for now and PPI daily given previous
black stools in January. If signs of brisk active bleeding then will do CT angiogram.
Subjective
Subjective
Date of Service: May 17, 2023
Patient states that he had bloody bowel movement last night, only 1, no lightheadedness or dizziness, no fever or chills.
Objective
Data Reviewed
Laboratory Data:
Laboratory Results
05/17/23 04:53
05/17/23 04:53
Laboratory Results
PT 15.0 Sec (11.4-14.6) H 05/14/23 20:30
INR 1.15 05/14/23 20:30
APTT 30.6 Sec (23.4-35.0) 05/14/23 20:30
Total Bilirubin 0.7 mg/dl (0.2-1.3) 05/14/23 15:51
AST 31 U/L (17-59) 05/14/23 15:51
ALT 24 U/L (0-50) 05/14/23 15:51
Alkaline Phosphatase 85 U/L (38-126) 05/14/23 15:51
Vital Signs and I&O:
Vital Signs
Temp Pulse Resp BP Pulse Ox
97.6 F 69 16 103/64 96
05/17/23 03:30 05/17/23 03:30 05/17/23 03:30 05/17/23 03:30 05/17/23 03:30
I&O
05/15/23 05/16/23 05/17/23
06:59 06:59 06:59
Intake Total 360 / 360 1680 / 1680 400 / 400
Output Total 350 / 350 2350 / 2350 1225 / 1225
Balance - / - -825 / -825
Physical Exam
Physical Exam
General: NAD
Abdomen: normal bowel sounds, soft, no tenderness, no masses or bruits, no ascites
[2023-05-17 07:52] LABS: Glucose - Point of Care 114 mg/dl (70-99)
[2023-05-17] MEDS: MAGNESIUM OXIDE 250 MG PO (08:26)
[2023-05-17] MEDS: VITAMIN D3 (cholecalciferol) 1000 UNITS PO (08:26)
[2023-05-17] MEDS: EFFEXOR XR 150 MG PO (08:26)
[2023-05-17] MEDS: LASIX 40 MG PO (08:26)
[2023-05-17] MEDS: ABILIFY 30 MG PO (08:26)
[2023-05-17] MEDS: ASPIR LOW (ENTERIC COATED) 81 MG PO (08:26)
[2023-05-17] MEDS: GLUCOPHAGE 1000 MG PO (08:27)
[2023-05-17] MEDS: VITAMIN B-12 100 MCG PO (08:27)
[2023-05-17] MEDS: PROTONIX 40 MG PO (08:27)
[2023-05-17] MEDS: MYRBETRIQ EXTENDED RELEASE 25 MG PO (08:27)
[2023-05-17] MEDS: CELEXA 40 MG PO (08:27)
[2023-05-17] MEDS: ProAmatine 5 MG PO ×2 (08:29→17:17)
[2023-05-17 11:48] LABS: Glucose - Point of Care 119 mg/dl (70-99)
--- NOTE | 2023-05-17 12:43 | W.PN.HOSP.TC ---
Today's Communication/Plan
-
EGD/Colon in AM
monitor dizziness/orthostatics
Assessment / Plan
Assessment / Plan
Assessment:
Orthostatic hypotension
Chronic dizziness
- Midodrine started
- BP meds: Losartan, Aldactone on hold
- continue compression therapy
- PT/OT - home/VN
Right Cephalic vein thrombus
- duplex with EXTENSIVE ACUTE OCCLUSIVE THROMBOSIS throughout the RIGHT CEPHALIC VEIN in the RIGHT FOREARM.
- Patient have recent admission in [facility] and had problem with infected IV line
- Eliquis being held for need of EGD
Memory problems
- Patient has been evaluated by neurology in outpatient basis and has been started on some medication, daughter does not know the name
Chronic iron deficiency anemia
- Ferritin 17, iron 34 TIBC 310. folate/b12 within normal limit
- GI following, for EGD/Colon Wednesday
Chronic diastolic congestive heart failure
- reduced Lasix to 40mg from 60mg
- monitor
Coronary disease with history of stenting
History of CVA
Hyperlipidemia
- continue ASA/Statin
Chronic right foot drop
- continue Gabapentin
Essential hypertension - hold all medication for suspicion of orthostasis Hypotension
[id number]-twqbpyyqe diabetes mellitus
- continue Metformin
GERD
- continue PPI
Depression/anxiety
- continue Abilify/Celexa/Venlafaxine
DVT ppx: SCDs
Code: Full
Anticipated Discharge: 24 - 48 hours
Subjective/Interval History
-
Date of Service: May 17, 2023
no new complaints presently
reports dizziness has improved
Objective Data
-
Labs:
Laboratory Results
05/17/23
04:53
WBC 6.8
Hgb 8.8 L
Hct 24.8 L
Plt Count 171 D
Sodium 137
Potassium 4.1
Chloride 100
Carbon Dioxide 31 H
BUN 23 H
Creatinine 0.9
Glucose 108 H
Calcium 9.3
Vital Signs:
Vital Signs
Temp Pulse Resp BP Pulse Ox
97.7 F 71 18 110/57 98
05/17/23 11:25 05/17/23 11:25 05/17/23 11:25 05/17/23 11:25 05/17/23 11:25
I&O
05/16/23 05/17/23 05/18/23
06:59 06:59 06:59
Intake Total 1680 / 1680 400 / 400
Output Total 2350 / 2350 1225 / 1225 500 / 500
Balance -670 / -670 -825 / -825 -500 / -500
Physical Exam
-
General: No Apparent Distress
HEENT: Normocephalic and Atraumatic
Respiratory: Negative Wheezes or Rales
Cardiac: Regular Rhythm and S1/S2
GI: Soft and Nontender
Genito-urinary: No Costovertebral Tender
Musculoskeletal: No Edema
Neuro: AO x 3
Hematologic / Lymphatic: No Lymphadenopathy
Psych: Calm
Data Reviewed
-
Total Time Spent with Patient (in minutes): 47
Labs: Labs Reviewed by me
--- NOTE | 2023-05-17 14:24 | CM ---
RUE thrombus. Blood in stool. Scheduled for EGD of colon on 05/18/22. Per PT recommendation: Discharge plan of care is home. Will determine if HH VN and PT are needed.
[2023-05-17] MEDS: ULTRAM 50 MG PO (15:50)
[2023-05-17] MEDS: LIDOCAINE 4% PATCH 1 PATCH TOPICAL (16:37)
[2023-05-17 16:54] LABS: Glucose - Point of Care 105 mg/dl (70-99)
[2023-05-17] MEDS: NULYTELY SOLUTION 4 LITERS PO (17:17)
[2023-05-17] MEDS: FLOMAX 0.400000000000000022 MG PO (20:25)
[2023-05-17] MEDS: PRAVACHOL 40 MG PO (20:25)
[2023-05-17] MEDS: FEOSOL 325 MG PO (20:25)
[2023-05-17 22:05] LABS: Glucose - Point of Care 110 mg/dl (70-99)
[2023-05-18] VITALS (12 sets, daily range): BP systolic 79–119; BP diastolic 51–75; PULSE 56–141; BMI 29.5
[2023-05-18 04:14] LABS: Hematocrit 27.7 % (39.0-52.0); Hemoglobin 9.1 g/dL (13.0-18.0); Mean Corp Hgb Conc. 32.9 g/dL (33.0-37.0); Mean Corpuscular Volume 91.4 fL (80.0-94.0); Mean Platelet Volume 9.4 fL (7.4-10.4); Platelet Count 173 10^3/uL (130-400); Red Blood Cell Count 3.03 10^6/uL (4.70-6.10); Red Cell Dist. Width 15.6 % (11.5-14.5); White Blood Cell Count 6.1 10^3/uL (4.8-10.8)
[2023-05-18 04:36] LABS: Blood Urea Nitrogen 23 mg/dl (9-20); Calcium 8.9 mg/dl (8.4-10.2); Carbon Dioxide 33 mmol/L (22-30); Chloride 98 mmol/L (98-107); Estimated Creatinine Clearance 69 ml/min; Glucose 114 mg/dl (70-99); Sodium 136 mmol/L (135-145); eGFR > 60.00
[2023-05-18 06:03] LABS: Glucose - Point of Care 119 mg/dl (70-99)
--- NOTE | 2023-05-18 06:25 | PTCARENOTE ---
06:20 heme negative stool
[2023-05-18] MEDS: MAGNESIUM OXIDE 250 MG PO (08:28)
[2023-05-18] MEDS: VITAMIN D3 (cholecalciferol) 1000 UNITS PO (08:28)
[2023-05-18] MEDS: ABILIFY 30 MG PO (08:29)
[2023-05-18] MEDS: PROTONIX 40 MG PO (08:29)
[2023-05-18] MEDS: CELEXA 40 MG PO (08:29)
[2023-05-18] MEDS: EFFEXOR XR 150 MG PO (08:29)
[2023-05-18] MEDS: GLUCOPHAGE 1000 MG PO (08:29)
[2023-05-18] MEDS: ProAmatine 5 MG PO ×2 (08:30→16:17)
[2023-05-18] MEDS: LIDOCAINE 4% PATCH 1 PATCH TOPICAL (08:30)
[2023-05-18] MEDS: ASPIR LOW (ENTERIC COATED) 81 MG PO (08:30)
[2023-05-18] MEDS: VITAMIN B-12 100 MCG PO (08:30)
[2023-05-18] MEDS: MYRBETRIQ EXTENDED RELEASE 25 MG PO (08:30)
[2023-05-18] MEDS: NOVOLOG FLEXPEN-LOW RESISTANCE SC ×3 (08:37→17:12)
[2023-05-18] MEDS: LASIX PO (08:42)
[2023-05-18 11:25] LABS: Glucose - Point of Care 112 mg/dl (70-99)
--- NOTE | 2023-05-18 11:42 | W.PN.HOSP.TC ---
Today's Communication/Plan
-
for EGD/Colon Today
Assessment / Plan
Assessment / Plan
Assessment:
Orthostatic hypotension
Chronic dizziness
- Midodrine started
- BP meds: Losartan, Aldactone on hold
- continue compression therapy
- PT/OT - home/VN
Right Cephalic vein thrombus
- duplex with EXTENSIVE ACUTE OCCLUSIVE THROMBOSIS throughout the RIGHT CEPHALIC VEIN in the RIGHT FOREARM.
- Patient have recent admission in [facility] and had problem with infected IV line
- Eliquis being held for need of EGD/scope
Memory problems
- Patient has been evaluated by neurology in outpatient basis and has been started on some medication, daughter does not know the name
Chronic iron deficiency anemia
- Ferritin 17, iron 34 TIBC 310. folate/b12 within normal limit
- GI following, for EGD/Colon Today
Chronic diastolic congestive heart failure
- reduced Lasix to 40mg from 60mg
- monitor
Coronary disease with history of stenting
History of CVA
Hyperlipidemia
- continue ASA/Statin
Chronic right foot drop
- continue Gabapentin
Essential hypertension - hold all medication for suspicion of orthostasis Hypotension
Kby-nezqwgg-krdkctwmp diabetes mellitus
- continue Metformin
GERD
- continue PPI
Depression/anxiety
- continue Abilify/Celexa/Venlafaxine
DVT ppx: SCDs
Code: Full
Anticipated Discharge: 24 - 48 hours
Subjective/Interval History
-
Date of Service: May 18, 2023
no overnight events
for EGD/[place] today
Objective Data
-
Labs:
Laboratory Results
05/18/23
03:53
WBC 6.1
Hgb 9.1 L
Hct 27.7 L
Plt Count 173
Sodium 136
Potassium 4.0
Chloride 98
Carbon Dioxide 33 H
BUN 23 H
Creatinine 0.9
Glucose 114 H
Calcium 8.9
Vital Signs:
Vital Signs
Temp Pulse Resp BP Pulse Ox
97.6 F 69 15 100/58 100
05/18/23 11:18 05/18/23 11:18 05/18/23 11:18 05/18/23 11:18 05/18/23 11:18
I&O
05/17/23 05/18/23 05/19/23
06:59 06:59 06:59
Intake Total 400 / 400 2520 / 2520
Output Total 1225 / 1225 2475 / 2475
Balance -825 / -825 45 / 45
Physical Exam
-
General: No Apparent Distress
HEENT: Normocephalic and Atraumatic
Cardiac: Regular Rhythm and S1/S2
GI: Soft
Genito-urinary: No Costovertebral Tender
Neuro: AO x 3
Psych: Calm
Data Reviewed
-
Total Time Spent with Patient (in minutes): 40
Labs: Labs Reviewed by me
--- NOTE | 2023-05-18 12:13 | W.PN.UPDATE ---
Update Note
Progress Note Update
EGD/colonoscopy done
Gastric bypass anatomy
Jejunal diverticulum
Axios stent in stomach accessing excluded stomach
Colon prep poor
REC:
Clears
give colyte tonight for colonoscopy tomorrow
[2023-05-18 12:33] LABS: Glucose - Point of Care 102 mg/dl (70-99)
--- NOTE | 2023-05-18 13:58 | CM ---
EGD completed. Need to reschedule Colonoscopy due to poor bowel prep. Spoke with [facility] construction sales representative. Patient has 3 hours a week of waiver services. They would like to be contacted when patient is discharged, X
[phone]. Discharge Plan of Care: Home, need to determine if HH is needed.
--- NOTE | 2023-05-18 16:20 | W.PN.UPDATE ---
Addendum entered and electronically signed by Fernandez Sandoval MD 05/18/23 17:29:
after discussion with family, patient now agreeable. Will reorder prep and clears, NPO nichole SMITH. GI made aware.
Original Note:
Update Note
Progress Note Update
patient refusing colonoscopy tomorrow. Prep cancelled, diet advanced
[2023-05-18 17:02] LABS: Glucose - Point of Care 130 mg/dl (70-99)
[2023-05-18] MEDS: NULYTELY SOLUTION 4 LITERS PO (20:39)
[2023-05-18 21:43] LABS: Glucose - Point of Care 116 mg/dl (70-99)
[2023-05-18] MEDS: PRAVACHOL 40 MG PO (21:49)
[2023-05-18] MEDS: FLOMAX 0.400000000000000022 MG PO (21:49)
[2023-05-18] MEDS: FEOSOL 325 MG PO (21:49)
[2023-05-19 03:10] VITALS: BP 109/60
[2023-05-19 05:52] LABS: Glucose - Point of Care 112 mg/dl (70-99)
[2023-05-19 06:00] VITALS: BMI 29.5
[2023-05-19 06:35] LABS: Hematocrit 32.3 % (39.0-52.0); Hemoglobin 10.5 g/dL (13.0-18.0); Mean Corp Hgb Conc. 32.5 g/dL (33.0-37.0); Mean Corpuscular Hgb 30.8 pg (27.0-31.0); Mean Corpuscular Volume 94.7 fL (80.0-94.0); Mean Platelet Volume 9.7 fL (7.4-10.4); Platelet Count 181 10^3/uL (130-400); Red Blood Cell Count 3.41 10^6/uL (4.70-6.10); Red Cell Dist. Width 15.7 % (11.5-14.5); White Blood Cell Count 6.7 10^3/uL (4.8-10.8)
--- NOTE | 2023-05-19 06:39 | PTCARENOTE ---
Patient refused to drink anymore of Nulytely prep. He states that he can not drink anymore. Educated the importance of trying to drink more to make sure stools are clear. He states that he can not.
[2023-05-19 07:05] VITALS: BP 95/58
[2023-05-19 07:08] LABS: Blood Urea Nitrogen 22 mg/dl (9-20); Calcium 8.9 mg/dl (8.4-10.2); Carbon Dioxide 29 mmol/L (22-30); Chloride 103 mmol/L (98-107); Estimated Creatinine Clearance 69 ml/min; Glucose 114 mg/dl (70-99); Potassium 4.1 mmol/L (3.5-5.1); Sodium 136 mmol/L (135-145); eGFR > 60.00
[2023-05-19] MEDS: NOVOLOG FLEXPEN-LOW RESISTANCE SC ×3 (08:32→17:58)
[2023-05-19 08:39] LABS: Glucose - Point of Care 103 mg/dl (70-99)
[2023-05-19] MEDS: GLUCOPHAGE PO (09:48)
[2023-05-19] MEDS: LIDOCAINE 4% PATCH 1 PATCH TOPICAL (09:57)
--- NOTE | 2023-05-19 10:35 | W.PN.GI.CBS2 ---
Addendum entered and electronically signed by Floyd Oviedo MD 05/19/23 11:17:
I saw and examined the patient.
The [employer] or PA's note was reviewed and I agree with the note.
Comment: Pt frustrated with inadequate bowel prep despite 2L colyte for two days in a row. I also reviewed EGD findings. He states he had bile duct stone at [facility], which is likely reason for Axios stent acccessing his excluded stomach post gastric
bypass
ABD soft NTND
REC:
I discussed prep for IVAN and black stool (one was bloody couple days ago) and drop in Hgb vs cancelling procedure
He is agreeable to try prep with miralax/gatorade, which he has had in past
Will prep for colonoscopy tomorrow.
Original Note:
Today's Communication / Plan
-
Plan for colonoscopy tomorrow, keep on clears today
Assessment / Plan
-
Iron deficiency anemia: Likely multifactorial, has been intermittent over the years, in the setting of gastric bypass, though did have black stools in January, and 4 g drop since April, in need of anticoagulation, likely some component of GI
blood loss. He had 1 bloody bowel movement and has remained hemodynamically stable. Plan for EGD and colonoscopy, after Eliquis washout.
-EGD performed yesterday with Dr. Oviedo, showing normal esophagus, s/p gastric bypass, no source of GI bleeding identified.
-Colonoscopy aborted due to poor prep.
-Plan to repeat colonoscopy tomorrow morning with clear liquid diet and prep again tonight
-Pt had difficulty with the prep, wishes to discuss further with Dr. Oviedo
Subjective
Subjective
Date of Service: May 19, 2023
Colonoscopy aborted yesterday due to poor prep, pt still not clear this AM after prepping for repeat colo planned today.
-pt reports difficulty tolerating the prep
He c/o mild, intermittent LLQ discomfort (rated 3/10) after passing liquid stool this AM
-no fever, chills, nausea, vomiting
Objective
Data Reviewed
Laboratory Data:
Laboratory Results
05/19/23 06:10
05/19/23 06:10
Laboratory Results
PT 15.0 Sec (11.4-14.6) H 05/14/23 20:30
INR 1.15 05/14/23 20:30
APTT 30.6 Sec (23.4-35.0) 05/14/23 20:30
Total Bilirubin 0.7 mg/dl (0.2-1.3) 05/14/23 15:51
AST 31 U/L (17-59) 05/14/23 15:51
ALT 24 U/L (0-50) 05/14/23 15:51
Alkaline Phosphatase 85 U/L (38-126) 05/14/23 15:51
Vital Signs and I&O:
Vital Signs
Temp Pulse Resp BP Pulse Ox
97.4 F 68 18 95/58 97
05/19/23 07:05 05/19/23 07:05 05/19/23 07:05 05/19/23 07:05 05/19/23 07:05
I&O
05/18/23 05/19/23 05/20/23
06:59 06:59 06:59
Intake Total 2520 / 2520 3120 / 3120
Output Total 2475 / 2475 1375 / 1375
Balance 45 / 45 1745 / 1745
Physical Exam
Physical Exam
GI: Soft, Non Distended, Tender (+mild LLQ tenderness) and Normal Bowel Sounds
--- NOTE | 2023-05-19 11:08 | W.PN.HOSP.TC ---
Today's Communication/Plan
-
await colonoscopy/prep discussion by patient/GI
Assessment / Plan
Assessment / Plan
Assessment:
Orthostatic hypotension
Chronic dizziness
- Midodrine started
- BP meds: Losartan, Aldactone on hold
- continue compression therapy
- PT/OT - home/VN
Right Cephalic vein thrombus
- duplex with EXTENSIVE ACUTE OCCLUSIVE THROMBOSIS throughout the RIGHT CEPHALIC VEIN in the RIGHT FOREARM.
- Patient have recent admission in [facility] and had problem with infected IV line
- Eliquis being held for need of EGD/scope; and recommended not to resume at discharge per Dr. Terry due to anemia
Memory problems
- Patient has been evaluated by neurology in outpatient basis and has been started on some medication, daughter does not know the name
Chronic iron deficiency anemia
- Ferritin 17, iron 34 TIBC 310. folate/b12 within normal limit
- s/p EGD: no sign of active bleeding
- colonoscopy prep ongoing due to initial poor prep. GI managing prep.
Chronic diastolic congestive heart failure
- reduced Lasix to 40mg from 60mg
- monitor
Coronary disease with history of stenting
History of CVA
Hyperlipidemia
- continue ASA/Statin
Chronic right foot drop
- continue Gabapentin
Essential hypertension - hold all medication for suspicion of orthostasis Hypotension
Vbk-zgrzbda-luucszfnt diabetes mellitus
- continue Metformin
GERD
- continue PPI
Depression/anxiety
- continue Abilify/Celexa/Venlafaxine
DVT ppx: SCDs
Code: Full
Anticipated Discharge: 24 - 48 hours
Subjective/Interval History
-
Date of Service: May 19, 2023
after reviewing with patient last evening, he agreed to colonoscopy and underwent prep, this AM Rn reporting clumps of stool passed
awaiting GI input
Objective Data
-
Labs:
Laboratory Results
05/19/23
06:10
WBC 6.7
Hgb 10.5 L
Hct 32.3 L
Plt Count 181
Sodium 136
Potassium 4.1
Chloride 103
Carbon Dioxide 29
BUN 22 H
Creatinine 0.9
Glucose 114 H
Calcium 8.9
Vital Signs:
Vital Signs
Temp Pulse Resp BP Pulse Ox
97.4 F 68 18 95/58 97
05/19/23 07:05 05/19/23 07:05 05/19/23 07:05 05/19/23 07:05 05/19/23 07:05
I&O
05/18/23 05/19/23 05/20/23
06:59 06:59 06:59
Intake Total 2520 / 2520 3120 / 3120
Output Total 2475 / 2475 1375 / 1375
Balance 45 / 45 1745 / 1745
Physical Exam
-
General: No Apparent Distress
HEENT: Normocephalic and Atraumatic
Respiratory: Negative Wheezes or Rales
Cardiac: Regular Rhythm and S1/S2
GI: Soft
Genito-urinary: No Costovertebral Tender
Musculoskeletal: No Edema
Neuro: AO x 3
Hematologic / Lymphatic: No Lymphadenopathy
Psych: Calm
Data Reviewed
-
Total Time Spent with Patient (in minutes): 45
Labs: Labs Reviewed by me
[2023-05-19 11:15] VITALS: BP 89/51
[2023-05-19] MEDS: CELEXA 40 MG PO (11:16)
[2023-05-19] MEDS: ASPIR LOW (ENTERIC COATED) 81 MG PO (11:16)
[2023-05-19] MEDS: ABILIFY 30 MG PO (11:16)
[2023-05-19] MEDS: MAGNESIUM OXIDE 250 MG PO (11:17)
[2023-05-19] MEDS: EFFEXOR XR 150 MG PO (11:17)
[2023-05-19] MEDS: MYRBETRIQ EXTENDED RELEASE 25 MG PO (11:18)
[2023-05-19] MEDS: VITAMIN D3 (cholecalciferol) 1000 UNITS PO (11:19)
[2023-05-19] MEDS: VITAMIN B-12 100 MCG PO (11:19)
[2023-05-19] MEDS: PROTONIX 40 MG PO (11:19)
[2023-05-19] MEDS: ProAmatine 5 MG PO ×2 (11:20→17:10)
[2023-05-19] MEDS: LASIX PO (11:37)
[2023-05-19 12:07] LABS: Glucose - Point of Care 135 mg/dl (70-99)
--- NOTE | 2023-05-19 14:44 | CM ---
Met with patient. Discussed discharge plan of care to home with VN and PT services. Patient preference is [facility]. Referral to be completed.
[2023-05-19 15:05] VITALS: BP 93/61
[2023-05-19] MEDS: GAVILAX 238 GM PO (17:10)
[2023-05-19 17:48] LABS: Glucose - Point of Care 117 mg/dl (70-99)
[2023-05-19 19:30] VITALS: BP 104/63; BP 81/51; BP 96/56; PULSE 136; PULSE 88; PULSE 89
[2023-05-19 21:44] LABS: Glucose - Point of Care 111 mg/dl (70-99)
[2023-05-19] MEDS: FLOMAX 0.400000000000000022 MG PO (21:51)
[2023-05-19] MEDS: FEOSOL 325 MG PO (21:51)
[2023-05-19] MEDS: PRAVACHOL 40 MG PO (21:51)
[2023-05-19 23:52] VITALS: BP 105/50
[2023-05-20 03:10] VITALS: BP 117/67
[2023-05-20 06:22] LABS: Hemoglobin 9.2 g/dL (13.0-18.0); Mean Corp Hgb Conc. 32.9 g/dL (33.0-37.0); Mean Corpuscular Hgb 31.1 pg (27.0-31.0); Mean Corpuscular Volume 94.6 fL (80.0-94.0); Mean Platelet Volume 9.9 fL (7.4-10.4); Platelet Count 145 10^3/uL (130-400); Red Blood Cell Count 2.96 10^6/uL (4.70-6.10); Red Cell Dist. Width 15.7 % (11.5-14.5); White Blood Cell Count 6.4 10^3/uL (4.8-10.8)
[2023-05-20 06:50] LABS: Blood Urea Nitrogen 15 mg/dl (9-20); Calcium 8.5 mg/dl (8.4-10.2); Carbon Dioxide 32 mmol/L (22-30); Chloride 104 mmol/L (98-107); Estimated Creatinine Clearance 77 ml/min; Glucose 110 mg/dl (70-99); Potassium 4.2 mmol/L (3.5-5.1); Sodium 137 mmol/L (135-145); eGFR > 60.00
[2023-05-20 07:35] VITALS: BP 111/64
[2023-05-20 08:20] LABS: Glucose - Point of Care 113 mg/dl (70-99)
[2023-05-20] MEDS: MAGNESIUM OXIDE 250 MG PO (08:56)
[2023-05-20] MEDS: VITAMIN B-12 100 MCG PO (08:56)
[2023-05-20] MEDS: ProAmatine 5 MG PO ×2 (08:56→17:47)
[2023-05-20] MEDS: PROTONIX 40 MG PO (08:56)
[2023-05-20] MEDS: CELEXA 40 MG PO (08:56)
[2023-05-20] MEDS: ABILIFY 30 MG PO (08:56)
[2023-05-20] MEDS: ASPIR LOW (ENTERIC COATED) 81 MG PO (08:56)
[2023-05-20] MEDS: VITAMIN D3 (cholecalciferol) 1000 UNITS PO (08:57)
[2023-05-20] MEDS: LIDOCAINE 4% PATCH 1 PATCH TOPICAL (08:57)
[2023-05-20] MEDS: MYRBETRIQ EXTENDED RELEASE 25 MG PO (08:57)
[2023-05-20] MEDS: GLUCOPHAGE PO (08:57)
[2023-05-20] MEDS: NOVOLOG FLEXPEN-LOW RESISTANCE SC ×3 (09:06→17:48)
[2023-05-20] MEDS: EFFEXOR XR 150 MG PO (09:07)
[2023-05-20 09:57] VITALS: BMI 29.5
[2023-05-20] MEDS: ULTRAM 50 MG PO (10:12)
--- NOTE | 2023-05-20 11:14 | CM ---
PT recommendation for HH. Patient preference is [facility]. [facility], [facility]/OT.
[2023-05-20 11:46] LABS: Glucose - Point of Care 103 mg/dl (70-99)
[2023-05-20 11:55] VITALS: BP 105/68; BP 130/77; BP 74/53; PULSE 136; PULSE 72; PULSE 77
[2023-05-20 12:01] VITALS: BMI 28.8
--- NOTE | 2023-05-20 13:42 | W.PN.HOSP.TC ---
Today's Communication/Plan
-
monitor post-colonoscopy and DC likely in AM if stable
OP [facility]CAM next diagnostic step per GI
Assessment / Plan
Assessment / Plan
Assessment:
Orthostatic hypotension
Chronic dizziness
- Midodrine started
- BP meds: Losartan, Aldactone on hold
- continue compression therapy
- PT/OT - home/VN
Right Cephalic vein thrombus
- duplex with EXTENSIVE ACUTE OCCLUSIVE THROMBOSIS throughout the RIGHT CEPHALIC VEIN in the RIGHT FOREARM.
- Patient have recent admission in [facility] and had problem with infected IV line
- Eliquis being held for need of EGD/scope; and recommended not to resume at discharge per Dr. Terry due to anemia
Memory problems
- Patient has been evaluated by neurology in outpatient basis and has been started on some medication, daughter does not know the name
Chronic iron deficiency anemia
- Ferritin 17, iron 34 TIBC 310. folate/b12 within normal limit
- s/p EGD: no sign of active bleeding
- s/p colonoscopy with polyp removal and diverticulosis, no active bleeding.
Chronic diastolic congestive heart failure
- reduced Lasix to 40mg from 60mg
- monitor
Coronary disease with history of stenting
History of CVA
Hyperlipidemia
- continue ASA/Statin
Chronic right foot drop
- resume Gabapentin at discharge
Essential hypertension - hold all medication for suspicion of orthostasis Hypotension
Pcs-edcgdfz-bgchdowop diabetes mellitus
- continue Metformin
GERD
- continue PPI
Depression/anxiety
- continue Abilify/Celexa/Venlafaxine
DVT ppx: SCDs
Code: Full
Anticipated Discharge: Within 24 hours
Subjective/Interval History
-
Date of Service: May 20, 2023
s/p colonoscopy with polyp removal
Objective Data
-
Labs:
Laboratory Results
05/20/23
05:46
WBC 6.4
Hgb 9.2 L
Hct 28.0 L
Plt Count 145
Sodium 137
Potassium 4.2
Chloride 104
Carbon Dioxide 32 H
BUN 15
Creatinine 0.8
Glucose 110 H
Calcium 8.5
Vital Signs:
Vital Signs
Temp Pulse Resp BP Pulse Ox
97.7 F 77 17 130/77 100
05/20/23 11:55 05/20/23 11:55 05/20/23 11:55 05/20/23 11:55 05/20/23 11:55
I&O
05/19/23 05/20/23 05/21/23
06:59 06:59 06:59
Intake Total 3120 / 3120 480 / 480
Output Total 1375 / 1375 1495 / 1495
Balance 1745 / 1745 -1015 / -1015
Physical Exam
-
General: No Apparent Distress
HEENT: Normocephalic and Atraumatic
Respiratory: Negative Wheezes or Rales
Cardiac: Regular Rhythm
GI: Soft
Musculoskeletal: No Edema
Neuro: AO x 3
Psych: Calm
Data Reviewed
-
Total Time Spent with Patient (in minutes): 42
Labs: Labs Reviewed by me
[2023-05-20 16:42] LABS: Glucose - Point of Care 148 mg/dl (70-99)
[2023-05-20 16:48] VITALS: BP 103/57
[2023-05-20 21:03] VITALS: BP 101/51
[2023-05-20] MEDS: FLOMAX 0.400000000000000022 MG PO (21:10)
[2023-05-20] MEDS: PRAVACHOL 40 MG PO (21:10)
[2023-05-20] MEDS: FEOSOL 325 MG PO (21:11)
[2023-05-20 21:36] LABS: Glucose - Point of Care 114 mg/dl (70-99)
[2023-05-20 23:28] VITALS: BP 96/63
[2023-05-21] VITALS (7 sets, daily range): BP systolic 81–140; BP diastolic 48–82; PULSE 95–146; O2SAT 100; BMI 28.8
[2023-05-21 06:38] LABS: Hemoglobin 9.1 g/dL (13.0-18.0); Mean Corp Hgb Conc. 32.5 g/dL (33.0-37.0); Mean Corpuscular Hgb 30.5 pg (27.0-31.0); Mean Platelet Volume 10.1 fL (7.4-10.4); Platelet Count 152 10^3/uL (130-400); Red Blood Cell Count 2.98 10^6/uL (4.70-6.10); Red Cell Dist. Width 15.8 % (11.5-14.5); White Blood Cell Count 6.8 10^3/uL (4.8-10.8)
[2023-05-21 07:12] LABS: Blood Urea Nitrogen 15 mg/dl (9-20); Calcium 8.7 mg/dl (8.4-10.2); Carbon Dioxide 29 mmol/L (22-30); Chloride 104 mmol/L (98-107); Estimated Creatinine Clearance 69 ml/min; Glucose 116 mg/dl (70-99); Sodium 135 mmol/L (135-145); eGFR > 60.00
[2023-05-21 07:43] LABS: Glucose - Point of Care 141 mg/dl (70-99)
[2023-05-21] MEDS: LIDOCAINE 4% PATCH 1 PATCH TOPICAL (08:56)
[2023-05-21] MEDS: ABILIFY 30 MG PO (08:57)
[2023-05-21] MEDS: PROTONIX 40 MG PO (08:57)
[2023-05-21] MEDS: VITAMIN B-12 100 MCG PO (08:57)
[2023-05-21] MEDS: LASIX 40 MG PO (08:57)
[2023-05-21] MEDS: CELEXA 40 MG PO (08:57)
[2023-05-21] MEDS: ProAmatine 5 MG PO ×2 (08:57→16:30)
[2023-05-21] MEDS: ASPIR LOW (ENTERIC COATED) 81 MG PO (08:57)
[2023-05-21] MEDS: GLUCOPHAGE 1000 MG PO (08:57)
[2023-05-21] MEDS: EFFEXOR XR 150 MG PO (08:58)
[2023-05-21] MEDS: VITAMIN D3 (cholecalciferol) 1000 UNITS PO (08:58)
[2023-05-21] MEDS: NOVOLOG FLEXPEN-LOW RESISTANCE SC (08:58)
[2023-05-21] MEDS: MAGNESIUM OXIDE 250 MG PO (08:58)
[2023-05-21] MEDS: MYRBETRIQ EXTENDED RELEASE 25 MG PO (08:58)
--- NOTE | 2023-05-21 10:41 | W.PN.GI.CBS2 ---
Addendum entered and electronically signed by Ela Escamilla Do, MD 05/21/23 12:40:
I saw and examined the patient.
The CLINICAL TRIAL HEAD's note was reviewed and I agree with the note.
Comment: He ate 100% of lunch. No abd pain,nausea/vomiting. Vitals stable, NTTP, NABS. diffuse bruising over arms and legs. Labs reviewed. EGD/colon done on this admission reviewed
Impression
- At this juncture H/H stable
- C/w PPI
- Tolerating diet, monitor stool output
- Records from [facility] requested. Will arrange for OP FU with Dr Mo for possible stent removal outpatient basis
- Pending above also consider video capsule OP basis
- Given no clear cause of recurrent GIB found and multiple recent admissions unclear if benefits of anticoagulation outweigh the risks of recurrent GI bleeding. Ultimately defer decision to hospitalist or OP cardiology if AC should be resumed
At this juncture no new GI recs. Will sign off please call for questions.
Original Note:
Today's Communication / Plan
-
etiology of bleeding likely related to noted oozing of stent placed recently at [facility] as noted on EGD early May when Eliquis therapeutic vs other
s/p EGD and colonoscopy completed to
I requested [facility] records to office
will review with Dr. Cook and Dr. Mo for plan -- pt due in about 4 weeks for stent removal at [facility] but prefers to come here
will review need for capsule endoscopy
I spoke with daughter for updated history
trend hbg
Eliquis remains on hold
Assessment / Plan
-
Pt is a 77yo with complicated medical history CVA, CAD- stent, NIDDM, GERD, memory issues with multiple recent admission to [facility] then [facility] and now . Per family pt with hypotension also noted diarrhea and dizziness. He was noted with
afib started on Eliquis then noted in April with concern for CBD stone. He was sent to [facility] for EGDE procedure with stone removal. After discharge he returned to [facility] with black stools and concern for bleeding with some hematoma and
oozing from LAMS stent. Eliquis was resumed next day. He also continued to have issues with hypotension with que stocking, midodrine and abd binder added. He then presents 05/14 to with recurrent dizziness with hbg 9.3 down from 13.7 in
April. He completed repeat EGD and colonoscopy this admission and Eliquis remains on hold.
�EGD � - Normal esophagus.Gastric bypass with a normal-sized pouch and intact
�� � � � � � � � � � � with Axios stent accessing the excluded stomach staple line. Gastrojejunal anastomosis characterized healthy appearing mucosa - Non-bleeding jejunal diverticulum - No specimens collected.
05/20/23 colonoscopy -- A diminutive polyp was found in the transverse colon, sessile polyp, 4 mm polyp splenic flexure, large lipoma ascending, diverticulosis, prominent ileocecal valve
path with TA, TC,
-IVAN
-hx EGDE procedure at [facility] 04/2023
-hx GI bleed with admission early May at [facility] with oozing from LAMS stent
-multiple admission to [facility] with hypotension last fall
-diarrhea with admission to [facility] last fall
-gastric bypass for wt loss several years ago
-orthostatic hypotension
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
other medical problems:
- memory issues
-hx CVA
-CAD with prior stenting
-HTN
-NIDDM
-GERD
-depression/anxiety
PLAN:
etiology of bleeding likely related to noted oozing of stent placed recently at [facility] as noted on EGD early May when Eliquis therapeutic vs other
s/p EGD and colonoscopy completed to
I requested [facility] records to office
will review with Dr. Cook and Dr. Mo for plan -- pt due in about 4 weeks for stent removal at [facility] but prefers to come here
will review need for capsule endoscopy
I spoke with daughter for updated history
trend hbg
Eliquis remains on hold
Subjective
Subjective
Date of Service: May 21, 2023
05/20 greenish stools on regular diet feeling well
Objective
Data Reviewed
Laboratory Data:
Laboratory Results
05/21/23 06:05
05/21/23 06:05
Laboratory Results
PT 15.0 Sec (11.4-14.6) H 05/14/23 20:30
INR 1.15 05/14/23 20:30
APTT 30.6 Sec (23.4-35.0) 05/14/23 20:30
Total Bilirubin 0.7 mg/dl (0.2-1.3) 05/14/23 15:51
AST 31 U/L (17-59) 05/14/23 15:51
ALT 24 U/L (0-50) 05/14/23 15:51
Alkaline Phosphatase 85 U/L (38-126) 05/14/23 15:51
Vital Signs and I&O:
Vital Signs
Temp Pulse Resp BP Pulse Ox
98.2 F 88 16 125/80 97
05/21/23 07:57 05/21/23 07:57 05/21/23 07:57 05/21/23 07:57 05/21/23 07:57
I&O
05/20/23 05/21/23 05/22/23
06:59 06:59 06:59
Intake Total 480 / 480 640 / 640
Output Total 1495 / 1495
Balance -1015 / -1015 640 / 640
Physical Exam
Physical Exam
HEENT: Anicteric
Cardiology: Normal Sinus Rhythm
Pulmonary: Clear
GI: Soft, Non Distended and Non Tender
Extremities: No Edema
Neuro: Non Focal
--- NOTE | 2023-05-21 11:04 | W.PN.HOSP.TC ---
Addendum entered and electronically signed by Fernandez Sandoval MD 05/21/23 14:31:
d/w daughter Clair on OP follow up with [facility] and risk/benefit favors Eliquis resumption but there is a risk of rebleeding and instructed daughter to watch for signs of bleeding, and stop Eliquis if signs of bleeding and notify PCP. She
endorsed understanding.
Addendum entered and electronically signed by Fernandez Sandoval MD 05/21/23 13:44:
Acute on chronic anemia multifactorial due to iron deficiency and blood loss
Original Note:
Today's Communication/Plan
-
follow GI recs
monitor vitals
Assessment / Plan
Assessment / Plan
Assessment:
Orthostatic hypotension
Chronic dizziness
- Midodrine started
- BP meds: Losartan, Aldactone on hold
- continue compression therapy
- PT/OT - home/VN
hx EGDE procedure at [facility] 04/2023 with Axios stent
Right Cephalic vein thrombus
- duplex with EXTENSIVE ACUTE OCCLUSIVE THROMBOSIS throughout the RIGHT CEPHALIC VEIN in the RIGHT FOREARM.
- Patient have recent admission in [facility] and had problem with infected IV line
- no Eliquis indicated per Hematology
Memory problems
- Patient has been evaluated by neurology in outpatient basis and has been started on some medication, daughter does not know the name
Chronic iron deficiency anemia
hx GI bleed with admission early May at [facility] with oozing from LAMS stent
- Ferritin 17, iron 34 TIBC 310. folate/b12 within normal limit
- s/p EGD: no sign of active bleeding
- s/p colonoscopy with polyp removal and diverticulosis, no active bleeding.
- possible [facility] outpatient
Chronic diastolic congestive heart failure
- reduced Lasix to 40mg from 60mg
- monitor
Coronary disease with history of stenting
History of CVA
Hyperlipidemia
Parox Afib
- continue ASA/Statin
- holding Eliquis but noted not on home meds on admission
Chronic right foot drop
- resume Gabapentin at discharge
Essential hypertension - hold all medication for suspicion of orthostasis Hypotension
Ouu-aeihmbo-nxdplaxhq diabetes mellitus
- continue Metformin
GERD
- continue PPI
Depression/anxiety
- continue Abilify/Celexa/Venlafaxine
DVT ppx: SCDs
Code: Full
Anticipated Discharge: 24 - 48 hours
Subjective/Interval History
-
Date of Service: May 21, 2023
tolerating reg diet feeling well
Objective Data
-
Labs:
Laboratory Results
05/21/23
06:05
WBC 6.8
Hgb 9.1 L
Hct 28.0 L
Plt Count 152
Sodium 135
Potassium 4.0
Chloride 104
Carbon Dioxide 29
BUN 15
Creatinine 0.9
Glucose 116 H
Calcium 8.7
Vital Signs:
Vital Signs
Temp Pulse Resp BP Pulse Ox
98.2 F 88 16 125/80 97
05/21/23 07:57 05/21/23 07:57 05/21/23 07:57 05/21/23 07:57 05/21/23 07:57
I&O
05/20/23 05/21/23 05/22/23
06:59 06:59 06:59
Intake Total 480 / 480 640 / 640
Output Total 1495 / 1495
Balance -1015 / -1015 640 / 640
Physical Exam
-
General: No Apparent Distress
HEENT: Normocephalic and Atraumatic
Respiratory: Negative Wheezes or Rales
Cardiac: Regular Rhythm and S1/S2
GI: Soft
Genito-urinary: No Costovertebral Tender
Musculoskeletal: No Edema
Neuro: AO x 3
Hematologic / Lymphatic: No Lymphadenopathy
Psych: Calm
Data Reviewed
-
Total Time Spent with Patient (in minutes): 47
Labs: Labs Reviewed by me
--- NOTE | 2023-05-21 12:02 | PN.CDI ---
CDI
- -
CDI:
Physician Documentation Request
Admit Date: 05/16/23 12:56
Dear Doctor Lori,
Patient admitted with orthostatic hypotension.
05/19 GI PN: 'black stool (one was bloody couple days ago) and drop in Hgb...Iron deficiency anemia: Likely multifactorial, has been intermittent over the years, in the setting of gastric bypass, though did have black stools in January, and 4 g drop
since April'
05/20 Hospitalist PN: 'Chronic iron deficiency anemia'
04/02/23 05/14/23 05/15/23
14:11 15:51 06:53
Hgb 13.7 9.3 L 9.1 L
Based on the above, could you clarify, in your progress note, which of the following is the most likely type of anemia you are evaluating, monitoring and/or treating?
Acute on chronic anemia multifactorial due to iron deficiency and blood loss
Chronic iron deficiency anemia
Other
Use of terms such as suspected, likely, concern for, or probable (associated with a specific diagnosis that is being evaluated, monitored, or treated as if it exists) are acceptable and can be coded in the inpatient setting, when documented at the
time of discharge.
Thank you,
Rebeca Velasquez RN, BSN
CDI Specialist
Available via [place] text
Please use your independent medical judgment in providing your response.
[2023-05-21 12:25] LABS: Glucose - Point of Care 292 mg/dl (70-99)
[2023-05-21] MEDS: NOVOLOG FLEXPEN-LOW RESISTANCE 3 UNITS SC (13:04)
--- NOTE | 2023-05-21 14:32 | W.PN.UPDATE ---
Addendum entered and electronically signed by MANDA Lynne 05/21/23 15:28:
Dr. Sandoval reviewed again with daughter and she would like [facility] transfer. I update pt and nursing staff. Placed call to [facility] center awaiting call back from Dr. Zavala
Original Note:
Update Note
Progress Note Update
I reviewed with pt and daughter 15 minutes on phone-- very frustrated with care with prolonged time to get records, different providers etc. I also reviewed that stent cannot be managed at by Dr. Mo as may need fistula closure after stent
removal and pt will need to return to [facility]. He has risk of rebleeding with Eliquis and return to hospital and CVA with holding Eliquis. Also reviewed with Dr. Oviedo hold on capsule for now. Will again discuss with Dr. Sandoval and Dr. Cook for
further options as high risk for readmission if Eliquis resumed. consider heparin challenge. If rebleeding may need transfer to [facility].
--- NOTE | 2023-05-21 14:41 | CM ---
Patient has been medically cleared for discharge to home with [facility] services. Transport will be by wheelchair van billed to hospital and approved via administration. IMM signed. notified.
[2023-05-21 17:48] LABS: Glucose - Point of Care 191 mg/dl (70-99)
[2023-05-21] MEDS: NOVOLOG FLEXPEN-LOW RESISTANCE 1 UNITS SC (17:57)
--- NOTE | 2023-05-21 19:24 | W.PN.UPDATE ---
Update Note
Progress Note Update
TT received from Attending Dr Sandoval to place pt on heparin gtt with no bolus and dc elquis order ( was on hold).
PT accepted at [facility] but currently no beds available. transfer paperwork will be completed by attending in am.
Watch closely for bleeding.
[2023-05-21 19:41] LABS: Hematocrit 31.8 % (39.0-52.0); Hemoglobin 10.3 g/dL (13.0-18.0); Mean Corp Hgb Conc. 32.4 g/dL (33.0-37.0); Mean Corpuscular Hgb 29.9 pg (27.0-31.0); Mean Corpuscular Volume 92.4 fL (80.0-94.0); Mean Platelet Volume 9.8 fL (7.4-10.4); Platelet Count 189 10^3/uL (130-400); Red Blood Cell Count 3.44 10^6/uL (4.70-6.10); Red Cell Dist. Width 15.8 % (11.5-14.5); White Blood Cell Count 9.9 10^3/uL (4.8-10.8)
--- NOTE | 2023-05-21 19:45 | PTCARENOTE ---
spoke with Navid at [facility] so they could gather info on patient to begin transfer process. Also passed along message to overnight GLUER that transfer center would like any other info she may have from day team about patient if
possible. Navid stated they will of course reach out to day time attending team tomorrow again to complete transfer request process. Patient's daughter Clair Bennett, which patient gave me permission to speak with, was also updated to current
plan.
[2023-05-21 19:52] LABS: APTT 29.1 Sec (23.4-35.0)
[2023-05-21] MEDS: HEPARIN 25000 UNITS/250 ML IV (20:48)
[2023-05-21 21:36] LABS: Glucose - Point of Care 129 mg/dl (70-99)
[2023-05-21] MEDS: FLOMAX 0.400000000000000022 MG PO (22:12)
[2023-05-21] MEDS: PRAVACHOL 40 MG PO (22:12)
[2023-05-21] MEDS: FEOSOL 325 MG PO (22:12)
[2023-05-22] VITALS (7 sets, daily range): BP systolic 69–118; BP diastolic 45–78; PULSE 56–145; BMI 29.0
[2023-05-22 04:39] LABS: Hematocrit 29.1 % (39.0-52.0); Hemoglobin 9.5 g/dL (13.0-18.0); Mean Corp Hgb Conc. 32.6 g/dL (33.0-37.0); Mean Corpuscular Hgb 29.6 pg (27.0-31.0); Mean Corpuscular Volume 90.7 fL (80.0-94.0); Mean Platelet Volume 10.5 fL (7.4-10.4); Platelet Count 159 10^3/uL (130-400); Red Blood Cell Count 3.21 10^6/uL (4.70-6.10); Red Cell Dist. Width 15.9 % (11.5-14.5); White Blood Cell Count 6.5 10^3/uL (4.8-10.8)
[2023-05-22 04:47] LABS: APTT 95.8 Sec (23.4-35.0)
[2023-05-22 05:41] LABS: Blood Urea Nitrogen 19 mg/dl (9-20); Calcium 9.4 mg/dl (8.4-10.2); Carbon Dioxide 28 mmol/L (22-30); Chloride 99 mmol/L (98-107); Estimated Creatinine Clearance 77 ml/min; Glucose 116 mg/dl (70-99); Sodium 135 mmol/L (135-145); eGFR > 60.00
--- NOTE | 2023-05-22 06:29 | PTCARENOTE ---
per patient, OK for nursing to give any medical info or updates to his daughters Clair and Diana if they call.
--- NOTE | 2023-05-22 08:14 | W.PN.UPDATE ---
Update Note
Progress Note Update
I spoke with [facility] this am and confirmed his acceptance to [facility] with Dr. ramos awaiting bed for transfer.
[2023-05-22 08:24] LABS: Glucose - Point of Care 108 mg/dl (70-99)
[2023-05-22] MEDS: NOVOLOG FLEXPEN-LOW RESISTANCE SC ×2 (08:59→11:44)
[2023-05-22] MEDS: ASPIR LOW (ENTERIC COATED) 81 MG PO (09:01)
[2023-05-22] MEDS: EFFEXOR XR 150 MG PO (09:01)
[2023-05-22] MEDS: ABILIFY 30 MG PO (09:01)
[2023-05-22] MEDS: ProAmatine 5 MG PO ×2 (09:01→16:47)
[2023-05-22] MEDS: GLUCOPHAGE 1000 MG PO (09:02)
[2023-05-22] MEDS: VITAMIN D3 (cholecalciferol) 1000 UNITS PO (09:02)
[2023-05-22] MEDS: MYRBETRIQ EXTENDED RELEASE 25 MG PO (09:02)
[2023-05-22] MEDS: CELEXA 40 MG PO (09:03)
[2023-05-22] MEDS: PROTONIX 40 MG PO (09:03)
[2023-05-22] MEDS: MAGNESIUM OXIDE 250 MG PO (09:03)
[2023-05-22] MEDS: VITAMIN B-12 100 MCG PO (09:04)
[2023-05-22] MEDS: LIDOCAINE 4% PATCH 1 PATCH TOPICAL (09:04)
[2023-05-22] MEDS: LASIX PO (09:12)
--- NOTE | 2023-05-22 09:48 | W.PN.GI.CBS2 ---
Today's Communication / Plan
-
C/w heparin gtt
Await bed at [place]. Accepted by Dr Zavala/GI at [place] for stent removal and closure
Over 50min of time was spent with patient and coordinating care with [facility] with family communication
Assessment / Plan
-
Pt is a 77yo with complicated medical history CVA, CAD- stent, NIDDM, GERD, memory issues with multiple recent admission to [facility] then [facility] and now . Per family pt with hypotension also noted diarrhea and dizziness. He was noted with
afib started on Eliquis then noted in April with concern for CBD stone. He was sent to [facility] for EGDE procedure with stone removal. After discharge he returned to [facility] with black stools and concern for bleeding with some hematoma and
oozing from LAMS stent. Eliquis was resumed next day. He also continued to have issues with hypotension with que stocking, midodrine and abd binder added. He then presents 05/14 to with recurrent dizziness with hbg 9.3 down from 13.7 in
April. He completed repeat EGD and colonoscopy this admission and Eliquis remains on hold.
GI Procedure
�EGD � - Normal esophagus.Gastric bypass with a normal-sized pouch and intact
�� � � � � � � � � � � with Axios stent accessing the excluded stomach staple line. Gastrojejunal anastomosis characterized healthy appearing mucosa - Non-bleeding jejunal diverticulum - No specimens collected.
05/20/23 colonoscopy -- A diminutive polyp was found in the transverse colon, sessile polyp, 4 mm polyp splenic flexure, large lipoma ascending, diverticulosis, prominent ileocecal valve
path with TA, TC
Impression
-IVAN
-hx EGDE procedure at [facility] 04/2023 with stent from gastric pouch to
-hx GI bleed with admission early May at [place] with oozing from LAMS stent
-multiple admission to [facility] with hypotension last fall
-diarrhea with admission to [facility] last fall
-gastric bypass for wt loss several years ago
-orthostatic hypotension
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
- memory issues
-hx CVA
-CAD with prior stenting
-HTN
-NIDDM
-GERD
-depression/anxiety
PLAN:
- Accepted by [place] Dr Zavala for stent removal and closure to treat recurrent GIB
- Resumed heparin gtt and observe. If rebleeding occurs would stop
- Serial H/H
- C/w PPI IV BID
- C/w diet
- Called left VM with daughter for update.
Given complexities of his GI care he will FU with GI at [place]
Above d/w RN and hospitalist. Will sign off please call for questions
Subjective
Subjective
Date of Service: May 22, 2023
No acute issues overnight. Denies abd pain, nausea/vomiting. He was accepted by Dr Zavala at [place]. Heparin gtt was started. No BMs and H/H stable
Objective
Data Reviewed
Laboratory Data:
Laboratory Results
05/22/23 03:58
05/22/23 03:58
Laboratory Results
PT 15.0 Sec (11.4-14.6) H 05/14/23 20:30
INR 1.15 05/14/23 20:30
APTT 95.8 Sec (23.4-35.0) H 05/22/23 03:58
Total Bilirubin 0.7 mg/dl (0.2-1.3) 05/14/23 15:51
AST 31 U/L (17-59) 05/14/23 15:51
ALT 24 U/L (0-50) 05/14/23 15:51
Alkaline Phosphatase 85 U/L (38-126) 05/14/23 15:51
Vital Signs and I&O:
Vital Signs
Temp Pulse Resp BP Pulse Ox
97.5 F 93 16 94/78 97
05/22/23 08:00 05/22/23 08:00 05/22/23 08:00 05/22/23 08:00 05/22/23 08:00
I&O
05/21/23 05/22/23 05/23/23
06:59 06:59 06:59
Intake Total 640 / 640 600 / 600
Output Total 2175 / 2175
Balance 640 / 640 -1575 / -1575
Physical Exam
Physical Exam
GEN: No acute distress, conversant, pleasant
HEENT: anicteric, extraocular movements intact, clear oropharynx without exudates
GI: soft, non-distended, not tender to palpation, normal active bowel sounds, no hepatosplenomegaly
EXT: warm, well perfused, no edema bilaterally ++diffuse bruising
NEURO: AAOx3, non-focal
[2023-05-22 10:11] LABS: APTT 144.7 Sec (23.4-35.0)
[2023-05-22 11:32] LABS: Glucose - Point of Care 123 mg/dl (70-99)
[2023-05-22] MEDS: HEPARIN 25000 UNITS/250 ML IV (11:34)
[2023-05-22] MEDS: ULTRAM 50 MG PO (13:01)
--- NOTE | 2023-05-22 13:16 | W.PN.HOSP.TC ---
Today's Communication/Plan
-
await transfer to [place]
continue IV Heparin - stop if any signs of GI bleed
Assessment / Plan
Assessment / Plan
Assessment:
Orthostatic hypotension
Chronic dizziness
- Midodrine started
- BP meds: Losartan, Aldactone on hold
- continue compression therapy
- PT/OT evals ongoing
hx EGDE procedure at [place] 04/2023 with Axios stent
Right Cephalic vein thrombus
- duplex with EXTENSIVE ACUTE OCCLUSIVE THROMBOSIS throughout the RIGHT CEPHALIC VEIN in the RIGHT FOREARM.
- Patient have recent admission in [facility] and had problem with infected IV line
- no Eliquis indicated per Hematology
Memory problems
- Patient has been evaluated by neurology in outpatient basis and has been started on some medication, daughter does not know the name
Chronic iron deficiency anemia
hx GI bleed with admission early May at [place] with oozing from LAMS stent
- Ferritin 17, iron 34 TIBC 310. folate/b12 within normal limit
- s/p EGD: no sign of active bleeding
- s/p colonoscopy with polyp removal and diverticulosis, no active bleeding.
- next step is transfer to [place] to evaluate stent related bleeding. Accepted by Dr. Zavala (GI) @ [place].
Chronic diastolic congestive heart failure
- reduced Lasix to 40mg from 60mg
- monitor
Coronary disease with history of stenting
History of CVA
Hyperlipidemia
Parox Afib
- continue ASA/Statin
- holding Eliquis; continue IV heparin drip (requires intensive monitoring)
Chronic right foot drop
- resume Gabapentin at discharge
Essential hypertension - hold all medication for suspicion of orthostasis Hypotension
Vhe-qxhtahn-opypneshf diabetes mellitus
- continue Metformin
GERD
- continue PPI
Depression/anxiety
- continue Abilify/Celexa/Venlafaxine
DVT ppx: - holding Eliquis; continue IV heparin drip (requires intensive monitoring)
Code: Full
Anticipated Discharge: > 48 hours
Subjective/Interval History
-
Date of Service: May 22, 2023
Hb 9.5
tolerating IV heparin so far
awaiting tx to [place]
Objective Data
-
Labs:
Laboratory Results
05/22/23 05/22/23 05/22/23
03:58 09:36 17:30
WBC 6.5
Hgb 9.5 L
Hct 29.1 L
Plt Count 159
APTT 95.8 H 144.7 H Pending
Sodium 135
Potassium 4.0
Chloride 99
Carbon Dioxide 28
BUN 19
Creatinine 0.8
Glucose 116 H
Calcium 9.4
Vital Signs:
Vital Signs
Temp Pulse Resp BP Pulse Ox
97.9 F 81 14 101/62 99
05/22/23 11:10 05/22/23 11:10 05/22/23 11:10 05/22/23 11:10 05/22/23 11:10
I&O
05/21/23 05/22/23 05/23/23
06:59 06:59 06:59
Intake Total 640 / 640 600 / 600
Output Total 2175 / 2175
Balance 640 / 640 -1575 / -1575
Physical Exam
-
General: No Apparent Distress
HEENT: Normocephalic and Atraumatic
Respiratory: Negative Wheezes
Cardiac: Regular Rhythm
GI: Soft
Genito-urinary: No Costovertebral Tender
Musculoskeletal: No Edema
Neuro: AO x 3
Hematologic / Lymphatic: No Lymphadenopathy
Psych: Calm
Data Reviewed
-
Total Time Spent with Patient (in minutes): 51
Labs: Labs Reviewed by me
[2023-05-22 16:37] LABS: Glucose - Point of Care 206 mg/dl (70-99)
[2023-05-22] MEDS: NOVOLOG FLEXPEN-LOW RESISTANCE 2 UNITS SC (16:48)
[2023-05-22 17:51] LABS: APTT 81.1 Sec (23.4-35.0)
[2023-05-22 21:36] LABS: Glucose - Point of Care 106 mg/dl (70-99)
[2023-05-22] MEDS: PRAVACHOL 40 MG PO (21:41)
[2023-05-22] MEDS: FLOMAX 0.400000000000000022 MG PO (21:41)
[2023-05-22] MEDS: FEOSOL 325 MG PO (21:41)
[2023-05-22 23:59] LABS: APTT 74.8 Sec (23.4-35.0)
[2023-05-23 06:00] VITALS: BMI 29.2
[2023-05-23 06:49] LABS: Hematocrit 30.6 % (39.0-52.0); Hemoglobin 10.1 g/dL (13.0-18.0); Mean Corpuscular Hgb 31.4 pg (27.0-31.0); Mean Platelet Volume 10.4 fL (7.4-10.4); Platelet Count 154 10^3/uL (130-400); Red Blood Cell Count 3.22 10^6/uL (4.70-6.10); Red Cell Dist. Width 16.2 % (11.5-14.5); White Blood Cell Count 6.4 10^3/uL (4.8-10.8)
[2023-05-23 06:56] LABS: APTT 74.3 Sec (23.4-35.0)
[2023-05-23 07:08] LABS: Blood Urea Nitrogen 24 mg/dl (9-20); Calcium 9.4 mg/dl (8.4-10.2); Carbon Dioxide 29 mmol/L (22-30); Chloride 100 mmol/L (98-107); Estimated Creatinine Clearance 69 ml/min; Glucose 97 mg/dl (70-99); Potassium 3.8 mmol/L (3.5-5.1); Sodium 135 mmol/L (135-145); eGFR > 60.00
[2023-05-23 07:10] VITALS: BP 110/74; BP 67/42; BP 73/49; PULSE 141; PULSE 80; PULSE 83
[2023-05-23 07:14] LABS: Glucose - Point of Care 120 mg/dl (70-99)
[2023-05-23] MEDS: LASIX PO (07:21)
[2023-05-23] MEDS: NOVOLOG FLEXPEN-LOW RESISTANCE SC ×3 (07:42→17:39)
[2023-05-23] MEDS: MAGNESIUM OXIDE 250 MG PO (08:16)
[2023-05-23] MEDS: GLUCOPHAGE 1000 MG PO (08:17)
[2023-05-23] MEDS: MYRBETRIQ EXTENDED RELEASE 25 MG PO (08:17)
[2023-05-23] MEDS: VITAMIN D3 (cholecalciferol) 1000 UNITS PO (08:17)
[2023-05-23] MEDS: VITAMIN B-12 100 MCG PO (08:17)
[2023-05-23] MEDS: CELEXA 40 MG PO (08:17)
[2023-05-23] MEDS: ASPIR LOW (ENTERIC COATED) 81 MG PO (08:17)
[2023-05-23] MEDS: PROTONIX 40 MG PO (08:17)
[2023-05-23] MEDS: EFFEXOR XR 150 MG PO (08:18)
[2023-05-23] MEDS: LIDOCAINE 4% PATCH 1 PATCH TOPICAL (08:18)
[2023-05-23] MEDS: ABILIFY 30 MG PO (08:18)
[2023-05-23] MEDS: HEPARIN 25000 UNITS/250 ML IV (08:47)
--- NOTE | 2023-05-23 09:35 | CM ---
CM following re: d/c planning
Chart reviewed
Pt plan of care has changed and he is now awaiting transfer to [place]
Initially patient was set up for d/c home with home care provided by [facility]
Pt will assume further treatment by Dr. Zavala at [place] once transfer efforts are coordinated
Pt's daughters are very involved and supportive of patient's care
CM will continue to monitor patient's progress and assist with any additional d/c needs as indicated
PLAN; pt awaiting transfer to [place]
[2023-05-23] MEDS: ProAmatine 2.5 MG PO (09:39)
[2023-05-23] MEDS: ProAmatine 5 MG PO ×3 (09:39→17:30)
[2023-05-23] MEDS: ProAmatine PO (10:34)
[2023-05-23] MEDS: COLACE 100 MG PO (11:04)
--- NOTE | 2023-05-23 11:10 | PTCARENOTE ---
Call received from [facility] asking for attending to call Carlos JAMES at [phone]. Dr Sandoval notified via tiger text.
[2023-05-23 11:45] LABS: Glucose - Point of Care 74 mg/dl (70-99)
--- NOTE | 2023-05-23 12:34 | W.PN.HOSP.TC ---
Today's Communication/Plan
-
continue IV heparin
monitor Hb and signs of bleeding
Midodrine 5mg now increased to TID
await tx to [place]
Assessment / Plan
Assessment / Plan
Assessment:
Orthostatic hypotension
Chronic dizziness
- Midodrine 5mg TID
- BP meds: Losartan, Aldactone on hold
- continue compression therapy
- PT/OT evals ongoing
hx EGDE procedure at [place] 04/2023 with Axios stent
Right Cephalic vein thrombus
- duplex with EXTENSIVE ACUTE OCCLUSIVE THROMBOSIS throughout the RIGHT CEPHALIC VEIN in the RIGHT FOREARM.
- Patient have recent admission in [facility]/[place] and had problem with infected IV line
- no Eliquis indicated per Hematology for this problem but is on AC due to A. Fib regardless
Memory problems
- Patient has been evaluated by neurology in outpatient basis and has been started on some medication, daughter does not know the name
Chronic iron deficiency anemia
hx GI bleed with admission early May at [place] with oozing from LAMS stent
- Ferritin 17, iron 34 TIBC 310. folate/b12 within normal limit
- s/p EGD: no sign of active bleeding
- s/p colonoscopy with polyp removal and diverticulosis, no active bleeding.
- next step is transfer to [place] to evaluate stent related bleeding. Accepted by Dr. Zavala (GI) @ [place] along with GI/Hospitalists.
Chronic diastolic congestive heart failure
- Continue Lasix 40mg, reduced from outpatient dose of 60mg
- monitor
Coronary disease with history of stenting
History of CVA
Hyperlipidemia
Parox Afib
- continue ASA/Statin
- holding Eliquis; continue IV heparin drip (requires intensive monitoring)
Chronic right foot drop
- resume Gabapentin at discharge
Essential hypertension - hold all medication for suspicion of orthostasis Hypotension
Krl-thsbiaf-msopznqnf diabetes mellitus
- continue Metformin
GERD
- continue PPI
Depression/anxiety
- continue Abilify/Celexa/Venlafaxine
DVT ppx: - holding Eliquis; continue IV heparin drip (requires intensive monitoring)
Code: Full
Anticipated Discharge: 24 - 48 hours
Subjective/Interval History
-
Date of Service: May 23, 2023
standing BPs in 60s today, asymptomatic and midodrine given
Hb stable at 10.1
Objective Data
-
Labs:
Laboratory Results
05/23/23 05/23/23
05:01 05:02
WBC 6.4
Hgb 10.1 L
Hct 30.6 L
Plt Count 154
APTT 74.3 H
Sodium 135
Potassium 3.8
Chloride 100
Carbon Dioxide 29
BUN 24 H
Creatinine 0.9
Glucose 97
Calcium 9.4
Vital Signs:
Vital Signs
Temp Pulse Resp BP Pulse Ox
97.6 F 80 16 110/74 98
05/23/23 07:10 05/23/23 07:10 05/23/23 07:10 05/23/23 07:10 05/23/23 07:10
I&O
05/22/23 05/23/23 05/24/23
06:59 06:59 06:59
Intake Total 600 / 600 1340 / 1340
Output Total 2175 / 2175 1250 / 1250
Balance -1575 / -1575 90 / 90
Physical Exam
-
General: No Apparent Distress
HEENT: Normocephalic and Atraumatic
Respiratory: Negative Wheezes
Cardiac: Regular Rhythm and S1/S2
GI: Soft
Genito-urinary: No Costovertebral Tender
Psych: Calm
Data Reviewed
-
Total Time Spent with Patient (in minutes): 51
Labs: Labs Reviewed by me
[2023-05-23 15:25] VITALS: BP 105/65
[2023-05-23] MEDS: MIRALAX 17 GRAMS PO (15:46)
[2023-05-23 17:36] LABS: Glucose - Point of Care 156 mg/dl (70-99)
[2023-05-23 19:39] VITALS: BP 111/65
[2023-05-23 22:01] LABS: Glucose - Point of Care 95 mg/dl (70-99)
[2023-05-23] MEDS: FEOSOL 325 MG PO (22:37)
[2023-05-23] MEDS: PRAVACHOL 40 MG PO (22:37)
[2023-05-23] MEDS: FLOMAX 0.400000000000000022 MG PO (22:37)
[2023-05-23 22:44] VITALS: BP 108/65
[2023-05-24 03:52] VITALS: BMI 29.2
[2023-05-24] MEDS: HEPARIN 25000 UNITS/250 ML IV ×2 (04:33→23:34)
[2023-05-24 07:10] LABS: APTT 67.5 Sec (23.4-35.0)
[2023-05-24 07:20] VITALS: BP 105/66
[2023-05-24 07:24] LABS: Hemoglobin 9.9 g/dL (13.0-18.0); Mean Corp Hgb Conc. 35.4 g/dL (33.0-37.0); Mean Corpuscular Hgb 34.3 pg (27.0-31.0); Mean Corpuscular Volume 96.9 fL (80.0-94.0); Mean Platelet Volume 10.2 fL (7.4-10.4); Platelet Count 155 10^3/uL (130-400); Red Blood Cell Count 2.89 10^6/uL (4.70-6.10); Red Cell Dist. Width 16.4 % (11.5-14.5); White Blood Cell Count 6.3 10^3/uL (4.8-10.8)
[2023-05-24 07:34] LABS: Blood Urea Nitrogen 22 mg/dl (9-20); Calcium 8.7 mg/dl (8.4-10.2); Carbon Dioxide 29 mmol/L (22-30); Chloride 104 mmol/L (98-107); Estimated Creatinine Clearance 77 ml/min; Glucose 102 mg/dl (70-99); Potassium 4.3 mmol/L (3.5-5.1); Sodium 135 mmol/L (135-145); eGFR > 60.00
[2023-05-24] MEDS: MIRALAX 17 GRAMS PO (08:31)
[2023-05-24 08:32] LABS: Glucose - Point of Care 233 mg/dl (70-99)
[2023-05-24] MEDS: LIDOCAINE 4% PATCH 1 PATCH TOPICAL (08:32)
[2023-05-24] MEDS: LASIX 40 MG PO (08:32)
[2023-05-24] MEDS: CELEXA 40 MG PO (08:33)
[2023-05-24] MEDS: MAGNESIUM OXIDE 250 MG PO (08:33)
--- NOTE | 2023-05-24 08:33 | W.PN.HOSP.TC ---
Today's Communication/Plan
-
pending transfer to [facility]
Assessment / Plan
Assessment / Plan
Assessment:
Orthostatic hypotension
Chronic dizziness
- Midodrine 5mg TID
- BP meds: Losartan, Aldactone on hold
- continue compression therapy
- PT/OT as tolerated.
hx EGDE procedure at [place] 04/2023 with Axios stent
Chronic iron deficiency anemia
hx GI bleed with admission early May at [place] with oozing from LAMS stent
- Ferritin 17, iron 34 TIBC 310. folate/b12 within normal limit
- s/p EGD: no sign of active bleeding
- s/p colonoscopy with polyp removal and diverticulosis, no active bleeding.
- next step is transfer to [place] to evaluate stent related bleeding. Accepted by Dr. Zavala (@ [place] along with GI/Hospitalists)
Right Cephalic vein thrombus
- duplex with EXTENSIVE ACUTE OCCLUSIVE THROMBOSIS throughout the RIGHT CEPHALIC VEIN in the RIGHT FOREARM.
- Patient have recent admission in [facility] and had problem with infected IV line
- no Eliquis indicated per Hematology for this problem but is on AC due to A. Fib regardless
Memory problems
- Patient has been evaluated by neurology in outpatient basis and has been started on some medication, daughter does not know the name
Chronic diastolic congestive heart failure
- Continue Lasix 40mg, reduced from outpatient dose of 60mg
- monitor
Coronary disease with history of stenting
History of CVA
Hyperlipidemia
Parox Afib
- continue ASA/Statin
- holding Eliquis; continue IV heparin drip (requires intensive monitoring)
Chronic right foot drop
- resume Gabapentin at discharge
Essential hypertension
- hold all medication for suspicion of orthostasis Hypotension
Azg-zmcjlsc-gxxiauuxo diabetes mellitus
- continue Metformin
GERD
- continue PPI
Depression/anxiety
- continue Abilify/Celexa/Venlafaxine
DVT ppx: - holding Eliquis; continue IV heparin drip (requires intensive monitoring)
Code: Full
Anticipated Discharge: Today
Subjective/Interval History
-
Date of Service: May 24, 2023
resting comfortably in bed
continues to have dizziness
no reported overt luminal blood loss.
Objective Data
-
Labs:
Laboratory Results
05/24/23 05/24/23
05:52 13:29
WBC 6.3
Hgb 9.9 L
Hct 28.0 L
Plt Count 155
APTT 67.5 H Pending
Sodium 135
Potassium 4.3
Chloride 104
Carbon Dioxide 29
BUN 22 H
Creatinine 0.8
Glucose 102 H
Calcium 8.7
Vital Signs:
Vital Signs
Temp Pulse Resp BP Pulse Ox
97.7 F 69 18 105/66 99
05/24/23 07:20 05/24/23 07:20 05/24/23 07:20 05/24/23 07:20 05/24/23 07:20
I&O
05/23/23 05/24/23 05/25/23
06:59 06:59 06:59
Intake Total 1340 / 1340 730 / 730
Output Total 1250 / 1250 1470 / 1470
Balance 90 / 90 -740 / -740
Review of Systems
-
Respiratory: Reports No Symptoms
Cardiac: Reports No Symptoms
Abdomen/GI: Reports No Symptoms
Physical Exam
-
General: Negative Appears in Distress
HEENT: Negative Oxygen
Respiratory: Clear to Auscultation
Cardiac: Regular Rhythm and S1/S2; Negative Murmur
GI: Soft, Nontender and Nondistended
Neuro: Awake, Alert, Oriented and No Motor Deficits
[2023-05-24] MEDS: MYRBETRIQ EXTENDED RELEASE 25 MG PO (08:34)
[2023-05-24] MEDS: PROTONIX 40 MG PO (08:34)
[2023-05-24] MEDS: VITAMIN B-12 100 MCG PO (08:34)
[2023-05-24] MEDS: VITAMIN D3 (cholecalciferol) 1000 UNITS PO (08:34)
[2023-05-24] MEDS: ABILIFY 30 MG PO (08:34)
[2023-05-24] MEDS: EFFEXOR XR 150 MG PO (08:34)
[2023-05-24] MEDS: NOVOLOG FLEXPEN-LOW RESISTANCE 2 UNITS SC (08:35)
[2023-05-24] MEDS: GLUCOPHAGE 1000 MG PO (08:35)
[2023-05-24] MEDS: ProAmatine 5 MG PO ×3 (08:37→17:24)
[2023-05-24] MEDS: ASPIR LOW (ENTERIC COATED) 81 MG PO (08:38)
[2023-05-24 11:30] VITALS: BP 101/62; BP 109/64; PULSE 64; PULSE 70
--- NOTE | 2023-05-24 11:53 | W.PN.ONC ---
Today's Communication / Plan
-
05/14: PV US: EXTENSIVE ACUTE OCCLUSIVE THROMBOSIS throughout the RIGHT CEPHALIC VEIN in the RIGHT FOREARM
Continue heparin gtt
Elevate,warm compress as needed to RUE for comfort�
05/18 EGD: Normal esophagus.Gastric bypass with a normal-sized pouch and intact with Axios stent accessing the excluded stomach staple line. Gastrojejunal anastomosis characterized�as healthy appearing mucosa. Non-bleeding jejunal diverticulum.No
specimens collected.
05/20 Repeated colonoscopy due to poor bowel prep: polyps removed, lipoma in ascending colon was biopsied, medium-size lipoma in transverse colon, prominent ileocecal pearl, diverticulosis.
Await pathology
CBC w/ diff daily
05/24 Hgb 9.9, Hct 28, MCV 96.9, RDW 16.4, PLT 155
Transfuse as needed to maintain Hgb >7
Hematest stools
Await transfer to [facility] Dr. Zavala
Impression
Impression
Chronic iron deficiency anemia
Orthostatic hypotension
Chronic dizziness
Right cephalic vein thrombus; previously infected IV site
Hx recent GIB s/p colonoscopy
hx EDGE procedure w/ Axios stent (04/2023)
Subjective/Objective
Subjective/Objective
patient is resting comfortably in bed. denies acute complaints at this time. no pain or evidence of bleeding.
Vital Signs:
Vital Signs
Temp Pulse Resp BP Pulse Ox
97.7 F 69 18 105/66 99
05/24/23 07:20 05/24/23 08:37 05/24/23 07:20 05/24/23 08:37 05/24/23 08:00
physical exam unchanged.
Lab Results:
Laboratory Data
WBC 6.3 10^3/uL (4.8-10.8) 05/24/23 05:52
Hgb 9.9 g/dL (13.0-18.0) L 05/24/23 05:52
Plt Count 155 10^3/uL (130-400) 05/24/23 05:52
PT 15.0 Sec (11.4-14.6) H 05/14/23 20:30
INR 1.15 05/14/23 20:30
APTT 67.5 Sec (23.4-35.0) H 05/24/23 05:52
eGFR > 60.00 05/24/23 05:52
[2023-05-24 12:24] LABS: Glucose - Point of Care 102 mg/dl (70-99)
[2023-05-24] MEDS: NOVOLOG FLEXPEN-LOW RESISTANCE SC ×2 (12:32→16:42)
[2023-05-24] MEDS: ULTRAM 50 MG PO ×2 (13:18→20:24)
[2023-05-24 13:54] LABS: APTT 95.5 Sec (23.4-35.0)
[2023-05-24 14:47] VITALS: BP 102/69; BP 112/48; BP 77/58; PULSE 64; PULSE 70; O2SAT 98
[2023-05-24 15:10] VITALS: BP 119/66
--- NOTE | 2023-05-24 15:10 | WOUNDNOTE ---
R ELBOW (just distal)
--- NOTE | 2023-05-24 15:10 | WOUNDNOTE ---
Eleazar PALMER (LOWER)
--- NOTE | 2023-05-24 15:10 | WOUNDNOTE ---
[facility] RN note: Patient admitted with extensive acute thrombosis R cephalic vein (forearm). Plan is transfer to [place].
See H&P for complete history.
PMH: EGDE procedure at [facility] 04/2023, infected IV line, a fib, CHF, CAD with stenting, chronic R foot drop, HTN, NIDDM, depression/anxiety.
Wound Location and type/assessment: Patient admitted with: R lower martines dry scabbed abrasion. Patient has pinpoint abrasion on R knee and small dermal skin tear just distal to L elbow (unsure when occurred). R heel with couple small blanchable
purple areas suspect from leg being dependent (no a pressure injury). Patient sitting in chair. FABY Mack reports patient's sacrum is intact.
Appetite: good.
Pressure redistribution devices in place: [employer] Accumax. Patient turns self in bed as per patient and FABY Mack.
Plan: Silicone border foam applied to R knee. Silicone border foam changed on L elbow.
Discussed with FABY Mack.
Care plan to be updated, will sign off. Call if needed.
--- NOTE | 2023-05-24 16:27 | CM ---
Addendum entered by Marc Cooper 05/24/23 16:29:
Change in discharge plan of care as MD requesting transfer to [facility].
Original Note:
Patient was scheduled for discharge last week then postponed due to medical instability. To date, discharge plan of care remains home with [facility] pending change in needs.
[2023-05-24 16:43] LABS: Glucose - Point of Care 121 mg/dl (70-99)
[2023-05-24 19:45] VITALS: BP 123/72
[2023-05-24 20:05] LABS: APTT 94.9 Sec (23.4-35.0)
[2023-05-24] MEDS: FEOSOL 325 MG PO (20:24)
[2023-05-24] MEDS: FLOMAX 0.400000000000000022 MG PO (20:24)
[2023-05-24] MEDS: PRAVACHOL 40 MG PO (20:24)
[2023-05-24 21:21] LABS: Glucose - Point of Care 200 mg/dl (70-99)
[2023-05-24 23:00] VITALS: BP 111/72
[2023-05-25] VITALS: BP 114/67; BP 71/46; BP 76/54
[2023-05-25 06:00] VITALS: BMI 29.0
[2023-05-25 06:06] VITALS: BP 71/46
[2023-05-25 07:19] LABS: Glucose - Point of Care 187 mg/dl (70-99)
[2023-05-25 07:30] VITALS: BP 113/66
[2023-05-25] MEDS: NOVOLOG FLEXPEN-LOW RESISTANCE 1 UNITS SC (08:41)
[2023-05-25] MEDS: LIDOCAINE 4% PATCH 1 PATCH TOPICAL (08:42)
[2023-05-25] MEDS: MIRALAX 17 GRAMS PO (08:42)
[2023-05-25] MEDS: MAGNESIUM OXIDE 250 MG PO (08:42)
[2023-05-25] MEDS: ABILIFY 30 MG PO (08:43)
[2023-05-25] MEDS: VITAMIN B-12 100 MCG PO (08:43)
[2023-05-25] MEDS: MYRBETRIQ EXTENDED RELEASE 25 MG PO (08:43)
[2023-05-25] MEDS: PROTONIX 40 MG PO (08:43)
[2023-05-25] MEDS: LASIX 40 MG PO (08:43)
[2023-05-25] MEDS: EFFEXOR XR 150 MG PO (08:43)
[2023-05-25] MEDS: CELEXA 40 MG PO (08:43)
[2023-05-25] MEDS: VITAMIN D3 (cholecalciferol) 1000 UNITS PO (08:43)
[2023-05-25] MEDS: ProAmatine 5 MG PO ×3 (08:44→17:26)
[2023-05-25] MEDS: GLUCOPHAGE 1000 MG PO (08:44)
[2023-05-25] MEDS: ASPIR LOW (ENTERIC COATED) 81 MG PO (08:44)
--- NOTE | 2023-05-25 11:15 | W.PN.ONC ---
Addendum entered and electronically signed by Harleen Toribio MD 05/25/23 11:49:
Awaiting transfer to [facility] for Axios stent removal and closure
Hgb stable on heparin drip
Original Note:
Today's Communication / Plan
-
05/14: PV US: EXTENSIVE ACUTE OCCLUSIVE THROMBOSIS throughout the RIGHT CEPHALIC VEIN in the RIGHT FOREARM
Elevate/warm compress as needed to RUE for comfort�
05/18 EGD: Normal esophagus.Gastric bypass with a normal-sized pouch and intact with Axios stent accessing the excluded stomach staple line. Gastrojejunal anastomosis characterized�as healthy appearing mucosa. Non-bleeding jejunal diverticulum.No
specimens collected.
05/20 Repeated colonoscopy due to poor bowel prep: polyps removed, lipoma in ascending colon was biopsied, medium-size lipoma in transverse colon, prominent ileocecal pearl, diverticulosis.
05/20 Pathology report is available; copied below
CBC w/ diff daily
Continue heparin gtt
Hematest stools
Await transfer to [place] - Dr. Zavala
Impression
Impression
Chronic iron deficiency anemia
Orthostatic hypotension w/ chronic dizziness
Right cephalic vein thrombus; previously infected IV site
Hx recent GIB s/p colonoscopy
hx EDGE procedure w/ Axios stent (04/2023)
Subjective/Objective
Subjective/Objective
Patient is OOB to the chair. He denies acute complaints. 'Just waiting on [place]'
Vital Signs:
Vital Signs
Temp Pulse Resp BP Pulse Ox
97.9 F 71 16 113/66 98
05/25/23 07:30 05/25/23 08:44 05/25/23 07:30 05/25/23 08:44 05/25/23 08:30
physical exam unchanged.
Lab Results:
Laboratory Data
WBC 6.3 10^3/uL (4.8-10.8) 05/24/23 05:52
Hgb 9.9 g/dL (13.0-18.0) L 05/24/23 05:52
Plt Count 155 10^3/uL (130-400) 05/24/23 05:52
PT 15.0 Sec (11.4-14.6) H 05/14/23 20:30
INR 1.15 05/14/23 20:30
APTT 94.9 Sec (23.4-35.0) H 05/24/23 19:39
eGFR > 60.00 05/24/23 05:52
*PATH REPORT 05/20/23
A. Ileocecal valve, biopsy:
- Ileocolonic mucosa with focal lymphoid aggregate.
B. Colon, ascending, biopsy:
- Colonic mucosa with focal surface epithelial hyperplasia and fragment of adipose tissue.
C. Colon, transverse, polypectomy:
- Tubular adenoma.
D. Colon, splenic flexure, polypectomy:
- Colonic mucosa with surface epithelial hyperplasia and fragments of digested food
particles.
E. Colon, transverse, biopsy:
- Colonic mucosa with focal surface epithelial hyperplasia and fragment of adipose tissue
Orders
Orders
Orders From Last 24 Hours
05/24/23 12:25
Hemetest Stools As Directed
[2023-05-25 12:01] LABS: Hematocrit 32.7 % (39.0-52.0); Hemoglobin 10.6 g/dL (13.0-18.0); Mean Corp Hgb Conc. 32.4 g/dL (33.0-37.0); Mean Corpuscular Hgb 30.4 pg (27.0-31.0); Mean Corpuscular Volume 93.7 fL (80.0-94.0); Mean Platelet Volume 9.9 fL (7.4-10.4); Platelet Count 177 10^3/uL (130-400); Red Blood Cell Count 3.49 10^6/uL (4.70-6.10); Red Cell Dist. Width 17.2 % (11.5-14.5); White Blood Cell Count 8.8 10^3/uL (4.8-10.8)
[2023-05-25 12:02] LABS: Glucose - Point of Care 124 mg/dl (70-99)
[2023-05-25] MEDS: NOVOLOG FLEXPEN-LOW RESISTANCE SC ×2 (12:26→17:12)
--- NOTE | 2023-05-25 12:42 | W.PN.HOSP.TC ---
Today's Communication/Plan
-
waiting bed arability at [facility]
Assessment / Plan
Assessment / Plan
Assessment:
Orthostatic hypotension
Chronic dizziness
- Midodrine 5mg TID
- BP meds: Losartan, Aldactone on hold
- continue compression therapy
- PT/OT as tolerated.
hx EGDE procedure at [place] 04/2023 with Axios stent
Chronic iron deficiency anemia
hx GI bleed with admission early May at [place] with oozing from LAMS stent
- Ferritin 17, iron 34 TIBC 310. folate/b12 within normal limit
- s/p EGD: no sign of active bleeding
- s/p colonoscopy with polyp removal and diverticulosis, no active bleeding.
- next step is transfer to [place] to evaluate stent related bleeding. Accepted by Dr. Zavlaa (@ [place] along with GI/Hospitalists)
- No reported bleeding in last 72 hrs, conitnue monitor. Hbg remains stable at 10.5
Right Cephalic vein thrombus
- duplex with EXTENSIVE ACUTE OCCLUSIVE THROMBOSIS throughout the RIGHT CEPHALIC VEIN in the RIGHT FOREARM.
- Patient have recent admission in [facility]/[place] and had problem with infected IV line
- no Eliquis indicated per Hematology for this problem but is on AC due to A. Fib regardless
Memory problems
- Patient has been evaluated by neurology in outpatient basis and has been started on some medication, daughter does not know the name
Chronic diastolic congestive heart failure
- Continue Lasix 40mg, reduced from outpatient dose of 60mg
- monitor
Coronary disease with history of stenting
History of CVA
Hyperlipidemia
Parox Afib
- continue ASA/Statin
- holding Eliquis; continue IV heparin drip (requires intensive monitoring)
Chronic right foot drop
- resume Gabapentin at discharge
Essential hypertension
- hold all medication for suspicion of orthostasis Hypotension
Eec-mljoilz-ojbjxyofc diabetes mellitus
- continue Metformin
GERD
- continue PPI
Depression/anxiety
- continue Abilify/Celexa/Venlafaxine
DVT ppx: - holding Eliquis; continue IV heparin drip (requires intensive monitoring)
Code: Full
Anticipated Discharge: Within 24 hours
Subjective/Interval History
-
Date of Service: May 25, 2023
resting comfortable in chair
no BM today
Objective Data
-
Labs:
Laboratory Results
05/25/23
11:45
WBC 8.8
Hgb 10.6 L
Hct 32.7 L
Plt Count 177
Vital Signs:
Vital Signs
Temp Pulse Resp BP Pulse Ox
97.9 F 71 16 113/66 98
05/25/23 07:30 05/25/23 08:44 05/25/23 07:30 05/25/23 08:44 05/25/23 08:30
I&O
05/24/23 05/25/23 05/26/23
06:59 06:59 06:59
Intake Total 730 / 730 1440 / 1440
Output Total 1470 / 1470 2500 / 2500
Balance -740 / -740 -1060 / -1060
Review of Systems
-
Respiratory: Reports No Symptoms
Cardiac: Reports No Symptoms
Abdomen/GI: Reports No Symptoms
Physical Exam
-
General: Negative Appears in Distress
HEENT: Negative Oxygen
GI: Soft, Nontender and Nondistended
Neuro: Awake, Alert, Oriented and No Motor Deficits
[2023-05-25 15:30] VITALS: BP 108/63
--- NOTE | 2023-05-25 16:37 | CM ---
Chart reviewed and waiting on a bed at [facility]
Plan; Transfer to [facility] when bed is available.
[2023-05-25] MEDS: HEPARIN 25000 UNITS/250 ML IV (16:47)
[2023-05-25 17:01] LABS: Glucose - Point of Care 124 mg/dl (70-99)
[2023-05-25] MEDS: COLACE 100 MG PO (17:26)
[2023-05-25] MEDS: PRAVACHOL 40 MG PO (20:11)
[2023-05-25] MEDS: FEOSOL 325 MG PO (20:11)
[2023-05-25] MEDS: FLOMAX 0.400000000000000022 MG PO (20:11)
[2023-05-25 20:41] LABS: APTT 88.4 Sec (23.4-35.0)
[2023-05-25 21:32] LABS: Glucose - Point of Care 141 mg/dl (70-99)
[2023-05-25 23:42] VITALS: BP 109/62; BP 64/44; BP 92/57; PULSE 144; PULSE 62; PULSE 80
[2023-05-26 06:00] VITALS: BMI 28.9
[2023-05-26 07:14] LABS: APTT 79.1 Sec (23.4-35.0)
[2023-05-26 07:20] VITALS: BP 96/69
[2023-05-26] MEDS: HEPARIN 25000 UNITS/250 ML IV (07:35)
[2023-05-26] MEDS: MIRALAX 17 GRAMS PO (08:23)
[2023-05-26] MEDS: ABILIFY 30 MG PO (08:24)
[2023-05-26] MEDS: LIDOCAINE 4% PATCH 1 PATCH TOPICAL (08:24)
[2023-05-26] MEDS: PROTONIX 40 MG PO (08:24)
[2023-05-26] MEDS: MAGNESIUM OXIDE 250 MG PO (08:24)
[2023-05-26 08:25] LABS: Glucose - Point of Care 123 mg/dl (70-99)
[2023-05-26] MEDS: VITAMIN B-12 100 MCG PO (08:25)
[2023-05-26] MEDS: CELEXA 40 MG PO (08:25)
[2023-05-26] MEDS: ProAmatine 5 MG PO ×3 (08:25→17:00)
[2023-05-26] MEDS: COLACE 100 MG PO ×2 (08:25→17:00)
[2023-05-26] MEDS: GLUCOPHAGE 1000 MG PO (08:25)
[2023-05-26] MEDS: ASPIR LOW (ENTERIC COATED) 81 MG PO (08:25)
[2023-05-26] MEDS: EFFEXOR XR 150 MG PO (08:26)
[2023-05-26] MEDS: MYRBETRIQ EXTENDED RELEASE 25 MG PO (08:26)
[2023-05-26] MEDS: VITAMIN D3 (cholecalciferol) 1000 UNITS PO (08:26)
[2023-05-26] MEDS: NOVOLOG FLEXPEN-LOW RESISTANCE SC ×3 (08:31→16:38)
[2023-05-26 10:48] VITALS: BP 112/68; BP 116/96; BP 84/63; PULSE 147; PULSE 70; PULSE 85
[2023-05-26 10:49] VITALS: BP 116/96
[2023-05-26] MEDS: LASIX PO (10:50)
[2023-05-26 12:09] LABS: Glucose - Point of Care 115 mg/dl (70-99)
--- NOTE | 2023-05-26 13:36 | W.PN.HOSP.TC ---
Today's Communication/Plan
-
[facility]
Assessment / Plan
Assessment / Plan
Orthostatic hypotension
Chronic dizziness
- Midodrine 5mg TID
- BP meds: Losartan, Aldactone on hold
- continue compression therapy
- PT/OT as tolerated.
-Blood pressure soft today again, patient not having any dizziness. Continue monitoring. May increase dose of midodrine if have more frequent episode of low blood pressure.
hx EGDE procedure at [place] 04/2023 with Axios stent
Chronic iron deficiency anemia
hx GI bleed with admission early May at [facility] with oozing from LAMS stent
- Ferritin 17, iron 34 TIBC 310. folate/b12 within normal limit
- s/p EGD: no sign of active bleeding
- s/p colonoscopy with polyp removal and diverticulosis, no active bleeding.
- next step is transfer to [place] to evaluate stent related bleeding. Accepted by Dr. Zavala (@ [facility] along with GI/Hospitalists)
- No reported bleeding in last 72 hrs, continue monitor. Hbg remains stable at 10.5
Right Cephalic vein thrombus
- duplex with EXTENSIVE ACUTE OCCLUSIVE THROMBOSIS throughout the RIGHT CEPHALIC VEIN in the RIGHT FOREARM.
- Patient have recent admission in [facility] and had problem with infected IV line
- no Eliquis indicated per Hematology for this problem but is on AC due to A. Fib regardless
Memory problems
- Patient has been evaluated by neurology in outpatient basis and has been started on some medication, daughter does not know the name
Chronic diastolic congestive heart failure
- Continue Lasix 40mg, reduced from outpatient dose of 60mg
- monitor
Coronary disease with history of stenting
History of CVA
Hyperlipidemia
Parox Afib
- continue ASA/Statin
- holding Eliquis; continue IV heparin drip (requires intensive monitoring)
Chronic right foot drop
- resume Gabapentin at discharge
Essential hypertension
- hold all medication for suspicion of orthostasis Hypotension
Xaa-oqdpgem-jixhrpkru diabetes mellitus
- continue Metformin
GERD
- continue PPI
Depression/anxiety
- continue Abilify/Celexa/Venlafaxine
DVT ppx: - holding Eliquis; continue IV heparin drip (requires intensive monitoring)
Code: Full
Anticipated Discharge: Today
Subjective/Interval History
-
Date of Service: May 26, 2023
resting comfortably in bed
no problems overnight
Objective Data
-
Labs:
Laboratory Results
05/26/23
05:45
APTT 79.1 H
Vital Signs:
Vital Signs
Temp Pulse Resp BP Pulse Ox
97.6 F 70 18 116/96 97
05/26/23 10:49 05/26/23 10:49 05/26/23 10:49 05/26/23 10:49 05/26/23 10:49
I&O
05/25/23 05/26/23 05/27/23
06:59 06:59 06:59
Intake Total 1440 / 1440 360 / 360
Output Total 2500 / 2500 1150 / 1150
Balance -1060 / -1060 -790 / -790
Review of Systems
-
Respiratory: Reports No Symptoms
Cardiac: Reports No Symptoms
Abdomen/GI: Reports No Symptoms
Physical Exam
-
General: Negative Appears in Distress
HEENT: Negative Oxygen
GI: Soft, Nontender and Nondistended
Neuro: Awake, Alert, Oriented and No Motor Deficits
[2023-05-26] MEDS: ULTRAM 50 MG PO (14:23)
[2023-05-26 16:38] LABS: Glucose - Point of Care 135 mg/dl (70-99)
--- NOTE | 2023-05-26 16:50 | CM ---
Awaiting acceptance by [facility].
[2023-05-26 21:40] LABS: Glucose - Point of Care 118 mg/dl (70-99)
[2023-05-26] MEDS: FLOMAX 0.400000000000000022 MG PO (22:18)
[2023-05-26] MEDS: PRAVACHOL 40 MG PO (22:18)
[2023-05-26] MEDS: FEOSOL 325 MG PO (22:18)
[2023-05-26 23:55] VITALS: BP 120/63; BP 63/46; BP 92/58; PULSE 135; PULSE 66; PULSE 68
[2023-05-27] MEDS: HEPARIN 25000 UNITS/250 ML IV (01:01)
[2023-05-27 06:00] VITALS: BMI 29.0
[2023-05-27 06:16] LABS: APTT 114.6 Sec (23.4-35.0)
[2023-05-27 07:10] VITALS: BP 110/68
--- NOTE | 2023-05-27 08:04 | W.PN.HOSP.TC ---
Today's Communication/Plan
-
got bed at [facility], being discharged.
Assessment / Plan
Assessment / Plan
Orthostatic hypotension
Chronic dizziness
- Midodrine 5mg TID
- BP meds: Losartan, Aldactone on hold
- continue compression therapy
- PT/OT as tolerated.
- BP better for last 24 hrs, no reported dizziness episode.
hx EGDE procedure at [place] 04/2023 with Axios stent
Chronic iron deficiency anemia
hx GI bleed with admission early May at [place] with oozing from LAMS stent
- Ferritin 17, iron 34 TIBC 310. folate/b12 within normal limit
- s/p EGD: no sign of active bleeding
- s/p colonoscopy with polyp removal and diverticulosis, no active bleeding.
- next step is transfer to [place] to evaluate stent related bleeding. Accepted by Dr. Zavala (@ [place] along with GI/Hospitalists)
- No reported bleeding in last 72 hrs, continue monitor. Hbg remains stable at 10.5
Right Cephalic vein thrombus
- duplex with EXTENSIVE ACUTE OCCLUSIVE THROMBOSIS throughout the RIGHT CEPHALIC VEIN in the RIGHT FOREARM.
- Patient have recent admission in [facility] and had problem with infected IV line
- no Eliquis indicated per Hematology for this problem but is on AC due to A. Fib regardless
Memory problems
- Patient has been evaluated by neurology in outpatient basis and has been started on some medication, daughter does not know the name
Chronic diastolic congestive heart failure
- Continue Lasix 40mg, reduced from outpatient dose of 60mg
- monitor
Coronary disease with history of stenting
History of CVA
Hyperlipidemia
Parox Afib
- continue ASA/Statin
- holding Eliquis; continue IV heparin drip
Chronic right foot drop
- resume Gabapentin at discharge
Essential hypertension
- hold all medication for suspicion of orthostasis Hypotension
Puz-jhikowt-cepqxifbk diabetes mellitus
- continue Metformin
GERD
- continue PPI
Depression/anxiety
- continue Abilify/Celexa/Venlafaxine
DVT ppx: - holding Eliquis; continue IV heparin drip (requires intensive monitoring)
Code: Full
Anticipated Discharge: Within 24 hours
Subjective/Interval History
-
Date of Service: May 27, 2023
no complains overnight
no reported BM overnight
Objective Data
-
Labs:
Laboratory Results
05/27/23 05/27/23
05:30 12:20
APTT 114.6 H Pending
Vital Signs:
Vital Signs
Temp Pulse Resp BP Pulse Ox
97.7 F 66 16 120/63 100
05/26/23 23:55 05/26/23 23:55 05/26/23 23:55 05/26/23 23:55 05/26/23 23:55
I&O
05/26/23 05/27/23 05/28/23
06:59 06:59 06:59
Intake Total 360 / 360 1200 / 1200
Output Total 1150 / 1150 1825 / 1825
Balance -790 / -790 -625 / -625
Review of Systems
-
Unable to obtain full review of systems at this time due to: Acuity
Physical Exam
-
General: Negative Appears in Distress
HEENT: Negative Oxygen
GI: Soft, Nontender and Nondistended
Neuro: Awake, Alert, Oriented and No Motor Deficits
[2023-05-27 08:18] LABS: Glucose - Point of Care 148 mg/dl (70-99)
[2023-05-27] MEDS: NOVOLOG FLEXPEN-LOW RESISTANCE SC ×2 (08:18→12:14)
[2023-05-27] MEDS: ABILIFY 30 MG PO (08:19)
[2023-05-27] MEDS: MAGNESIUM OXIDE 250 MG PO (08:19)
[2023-05-27] MEDS: EFFEXOR XR 150 MG PO (08:19)
[2023-05-27] MEDS: ASPIR LOW (ENTERIC COATED) 81 MG PO (08:19)
[2023-05-27] MEDS: VITAMIN B-12 100 MCG PO (08:19)
[2023-05-27] MEDS: GLUCOPHAGE 1000 MG PO (08:20)
[2023-05-27] MEDS: VITAMIN D3 (cholecalciferol) 1000 UNITS PO (08:20)
[2023-05-27] MEDS: MYRBETRIQ EXTENDED RELEASE 25 MG PO (08:20)
[2023-05-27] MEDS: LASIX 40 MG PO (08:20)
[2023-05-27] MEDS: CELEXA 40 MG PO (08:20)
[2023-05-27] MEDS: PROTONIX 40 MG PO (08:20)
[2023-05-27] MEDS: LIDOCAINE 4% PATCH 1 PATCH TOPICAL (08:23)
[2023-05-27] MEDS: MIRALAX 17 GRAMS PO (08:23)
[2023-05-27] MEDS: ProAmatine 5 MG PO ×2 (08:23→13:00)
[2023-05-27] MEDS: ULTRAM 50 MG PO (10:31)
[2023-05-27 11:42] LABS: Glucose - Point of Care 92 mg/dl (70-99)
[2023-05-27 13:05] LABS: APTT 87.3 Sec (23.4-35.0)
--- NOTE | 2023-05-27 14:53 | CM ---
Patient continues to await a bed at [facility] for additional services. Currently comfortable and stable.
[2023-05-27 15:31] VITALS: BP 109/62
--- NOTE | 2023-06-09 15:08 | W.DCSUMMARY ---
Discharge Summary
Discharge Data
Date of Admission: 05/16/23
Date of Discharge: 05/27/23
-
Pending Results: No
Hospital Course
Discharging Physician : Dr Kenny Pike
Disposition : [facility]
Primary care physician :
Principal Discharge diagnosis :
Gastrointestinal bleed
Acute blood loss anemia
Chronic dizziness suspect orthostasis
Superficial thrombosis of right cephalic vein
Paroxysmal atrial fibrillation
Chronic Discharge diagnosis :
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
History of gastrointestinal bleed from stent irritation/erosion
Chronic diastolic congestive heart failure
Cognitive impairment
History of stroke
Hyperlipidemia
Chronic right foot drop
Essential hypertension
Bmo-vzoltco-ypjatwpxl diabetes mellitus
Gastroesophageal reflux disease
Depression/anxiety
Hospital Course :
Patient is a 78-year-old male with past medical history came to ER for having new onset of lightheadedness. Patient has been having episodic dizziness and have underwent workup in outside hospital in the past.
Orthostatic hypotension, chronic dizziness -as mentioned above patient primary presented for persistent dizziness. Patient blood pressure was noted to be soft with systolic blood pressure in 100s. Patient on losartan and Aldactone at home which
were held. Patient was started on compression therapy and symptoms persisted. Patient was added on midodrine therapy. Patient's symptoms significantly improved after that although still have very episodic dizziness without true orthostasis
involved with it.
Acute blood loss anemia, GI bleed -patient was noted to be anemic this hospitalization requiring blood transfusion. Patient had recent EGDE procedure with stone removal at [facility]. Patient is on chronic anticoagulation with Eliquis for
A-fib and was noted to having black stools, patient had return to [facility] and was felt to having oozing from LAMS stent. Due to recurrence of anemia GI did repeat EGD and colonoscopy which showed normal esophagus with Axios stent in
place without clear source of bleed. Colonoscopy was showing some polyps and diverticulosis and a lipoma in ascending colon. GI felt patient having periodic oozing bleeding from LAMS stent and recommended for patient to be transferred to [place]
[facility] for evaluation. Patient was accepted by [place] [facility] and was transferred later on.
Right cephalic vein thrombus -patient ultrasound showing extensive occlusive thrombosis through right cephalic vein and forearm. No Eliquis indicated due to superficial nature of thrombus although patient have history of A-fib and required to be
continued regardless. During this hospitalization patient was switched to heparin drip with ongoing GI bleed issue.
Important imaging findings :
None
Procedure findings :
None
Discharge Plan
-
Patient Disposition: Acute Care Hospital
Condition: Fair
Discharge Orders:
Discharge Patient (As Directed); Ordered 05/21/23
Ordered By: Fernandez Sandoval
Discharge Date and Time
Discharge Date/Time: 05/27/23 16:00
== END 2023-05-27 16:00 | disposition short-term general hospital (02) | DRG 300 ==
LOC: 2 SOUTH 12:56
PROVIDERS: Emergency Medicine; Internal Medicine; Nurse Practitioner Family; Registered Nurse; Specialist; ADMITTING PHYSICIAN Hospitalist; ATTENDING PHYSICIAN Hospitalist; CONSULT PHYSICIAN Internal Medicine Gastroenterology; EMERGENCY PHYSICIAN Emergency Medicine; FAMILY PHYSICIAN Family Medicine; OTHER PHYSICIAN Internal Medicine Hematology & Oncology
PROC: 0DJ08ZZ Inspection of Upper Intestinal Tract, Via Natural or Artificial Opening Endoscopic (ICD-10-PCS; 2023-05-18)
PROC: 0DBK8ZX Excision of Ascending Colon, Via Natural or Artificial Opening Endoscopic, Diagnostic (ICD-10-PCS; 2023-05-20)
PROC: 0DBL8ZX Excision of Transverse Colon, Via Natural or Artificial Opening Endoscopic, Diagnostic (ICD-10-PCS; 2023-05-20)
DX: I82.611 Acute embolism and thrombosis of superficial veins of right upper extremity (principal); D62 Acute posthemorrhagic anemia; I50.32 Chronic diastolic (congestive) heart failure; K92.2 Gastrointestinal hemorrhage, unspecified; D50.9 Iron deficiency anemia, unspecified; I11.0 Hypertensive heart disease with heart failure; I25.10 Atherosclerotic heart disease of native coronary artery without angina pectoris; I48.0 Paroxysmal atrial fibrillation; K21.9 Gastro-esophageal reflux disease without esophagitis; F32.A Depression, unspecified; F41.9 Anxiety disorder, unspecified; M21.371 Foot drop, right foot; Z79.01 Long term (current) use of anticoagulants; E78.00 Pure hypercholesterolemia, unspecified; Z86.73 Personal history of transient ischemic attack (TIA), and cerebral infarction without residual deficits; Z79.82 Long term (current) use of aspirin; K59.00 Constipation, unspecified; E11.649 Type 2 diabetes mellitus with hypoglycemia without coma; Z53.09 Procedure and treatment not carried out because of other contraindication; I95.1 Orthostatic hypotension
CPT/HCPCS: 88305; 80048; 80053; 82607; 82728; 82746; 82962; 83036; 83540; 83550; 84484; 85025; 85027; 85610; 85730; 86850; 86900; 86901; 93005; 93306; 93971; 96360; 97110; 97116; 97162; 97166; 97530; 97535; 99285

== ENCOUNTER 2023-07-19 19:31 | Inpatient (IN) | payer OTHER, SELFPAY ==
[2023-07-19] VITALS (19 sets, daily range): BP systolic 86–125; BP diastolic 63–100; BMI 27.3
[2023-07-19 12:59] LABS: % Basophils 0.3 % (0-2); % Eosinophils 0.4 % (0-6); % Immature Granulocytes 0.6 % (0-0.5); % Lymphocytes 10.6 % (20.5-51.1); % Monocytes 13.1 % (1.7-9.3); Absolute Lymphocytes 0.7 10^3/uL (1.2-3.4); Absolute Monocytes 0.9 10^3/uL (0.1-0.6); Absolute Neutrophils 5.2 10^3/uL (1.4-6.5); Hematocrit 37.6 % (39.0-52.0); Hemoglobin 11.9 g/dL (13.0-18.0); Mean Corp Hgb Conc. 31.6 g/dL (33.0-37.0); Mean Corpuscular Hgb 26.7 pg (27.0-31.0); Mean Corpuscular Volume 84.3 fL (80.0-94.0); Mean Platelet Volume 9.8 fL (7.4-10.4); Nucleated Red Blood Cells % 0 % (-); Platelet Count 156 10^3/uL (130-400); Red Blood Cell Count 4.46 10^6/uL (4.70-6.10); Red Cell Dist. Width 16.7 % (11.5-14.5); White Blood Cell Count 6.9 10^3/uL (4.8-10.8)
[2023-07-19] MEDS: OMNIPAQUE 50 ML PO (13:10)
[2023-07-19] MEDS: NSS 1000 IV ×2 (13:11→21:35)
[2023-07-19 13:20] LABS: ALT (SGPT) 15 U/L (0-50); AST (SGOT) 25 U/L (17-59); Albumin 3.8 g/dl (3.5-5.0); Alkaline Phosphatase 75 U/L (38-126); Blood Urea Nitrogen 20 mg/dl (9-20); Calcium 9.8 mg/dl (8.4-10.2); Carbon Dioxide 25 mmol/L (22-30); Chloride 107 mmol/L (98-107); Glucose 126 mg/dl (70-99); Lipase 98 U/L (23-300); Sodium 139 mmol/L (135-145); Total Bilirubin 0.5 mg/dl (0.2-1.3); Total Protein 6.4 g/dl (6.3-8.2); eGFR > 60.00
[2023-07-19 13:25] LABS: Lactic Acid 2.4 mmol/L (0.7-2.0)
--- NOTE | 2023-07-19 13:46 | ED.GENMED ---
History of Present Illness
General
Chief Complaint: Dizziness
Source: patient and ambulance crew
Exam Limitations: none
Time Seen by Provider: 07/19/23 12:49
Travel History
Have you had any contact with someone who has COVID-19?: No
Do you have any symptoms of coronavirus? Fever > 100 degrees, chills, cough, shortness of breath, sore throat, loss of taste or smell, muscle aches, or headache?: No
History of Present Illness
History of Present Illness:
78-year-old male with a history of A-fib, CHF, coronary disease, hypertension, previous stroke, previous gastric bypass who presents with nausea and lightheadedness. The patient states he is unsure as to when it started but today he felt sick in
his stomach. He on my evaluation denies pain. No noted diarrhea or melena. No hematochezia. Pain. No shortness of breath.
Past History
Past History
ED Past Medical History: Arrthythmia (Atrial fibrillation), CVA, GERD, HTN, NIDDM, NM and Other (GI bleed, GI stent)
ED Past Surgical History: Cholecystectomy, Orthopedic and Other (Gastric bypass)
Patient has exhibited threatening behavior?: No
PSI?: No
Social History
Tobacco: Former smoker
Alcohol: None
Drug: None
Personal:
Living: with family
Employment: Not employed
Family History
Family History: Other (Noncontributory)
Phy Exam
Physical Exam
Physical Exam:
CONSTITUTIONAL Patient alert and oriented to person, place and time. Vital signs reviewed. Dry mucous membranes
HEAD atraumatic, normocephalic.
EYES eyelids normal to inspection, Extraocular muscles intact, Conjunctiva normal, Sclera normal.
NECK normal range of motion, Trachea midline, no jugular venous distention.
RESPIRATORY CHEST No respiratory distress noted, Chest expansion equal, Bilateral breath sounds clear.
CARDIOVASCULAR distant heart sounds, irregularly irregular
ABDOMEN no distention, mild diffuse tenderness
BACK normal inspection, no obvious deformities
UPPER EXTREMITY range of motion normal, Motor strength normal, no cyanosis, no edema.
LOWER EXTREMITY range of motion normal, Motor strength normal, no cyanosis, no edema.
NEURO Speech normal, No focal motor deficits, Daily coma scale 15, Memory normal, Cranial Nerves intact to screening exam.
SKIN skin warm, dry, and normal in color.
Course
Orders/Labs/Results
Orders:
Orders
07/19/23 12:52
Electrocardiogram (*1) Urgent
Reason for Study: Atrial Fibrillation
EKG- Treatment ONCE
07/19/23 12:53
Complete Blood Count/With Diff Urgent
Comprehensive Metabolic Panel Urgent
Lipase Urgent
Comment: ADD ON
07/19/23 12:58
Add On- LAB Stat
Tests Added?: lipase
0.9% Sodium Chloride 1000 ml [Nss] 1,000 ml IV BOLUS
07/19/23 12:59
Iohexol [Omnipaque] See Protocol PO NOW STA
07/19/23 13:00
CT Abd/pel W Iv And Oral Contr Urgent
Comment:
Reason For Exam: mid abd pain, nausea, h/o gastric bypass
07/19/23 13:01
Lactic Acid Stat
07/19/23 18:11
Urinalysis Reflex To Culture Urgent
07/19/23 18:20
Piperacillin/Tazo 3.375 Gram [Zosyn] 3.375 gram in 50 ml IV NOW
07/19/23 18:47
Admit/Transfer Patient As Directed
Co-Sign Provider:
Level of Care: Inpatient admission
Assign to:: Medical/Surgical
Physician / Group: chato
Diagnosis: ileus, constipation, pneumobilia
Reason for Hospitalization: ileus, constipation, pneumobilia
Expected length of stay greater than two midnights?: Yes
ELOS- Estimated Length of Stay in days: 2
I certify the patient meets the requirements for IP care: Yes
07/19/23 18:48
Code Status As Directed
Resuscitation Status: Full Code
07/19/23 18:[address] See Dose Instructions PO NOW STA
Discontinue all Active Warfarin orders?: Yes
Abnormal Lab Results
07/19/23 07/19/23
12:53 13:01
RBC 4.46 L 10^6/uL
(4.70-6.10)
Hgb 11.9 L g/dL
(13.0-18.0)
Hct 37.6 L %
(39.0-52.0)
MCH 26.7 L pg
(27.0-31.0)
MCHC 31.6 L g/dL
(33.0-37.0)
RDW 16.7 H %
(11.5-14.5)
Absolute Lymphs (auto) 0.7 L 10^3/uL
(1.2-3.4)
Absolute Monos (auto) 0.9 H 10^3/uL
(0.1-0.6)
Immature Gran % 0.6 H %
(0-0.5)
Lymphocytes % 10.6 L %
(20.5-51.1)
Monocytes % 13.1 H %
(1.7-9.3)
Glucose 126 H mg/dl
(70-99)
Lactic Acid 2.4 H mmol/L
(0.7-2.0)
07/19/23 12:53
07/19/23 12:53
Vital Signs
Initial and Last Documented VS:
Initial Vital Signs
Temp Pulse Resp Pulse Ox
98.3 F 65 15 100
07/19/23 12:45 07/19/23 12:45 07/19/23 12:45 07/19/23 12:45
Last Documented Vital Signs
Temp Pulse Resp BP Pulse Ox
98.3 F 94 22 110/75 98
07/19/23 12:45 07/19/23 17:30 07/19/23 17:30 07/19/23 17:30 07/19/23 17:30
MDM/Problems Addressed
MDM/Problems Addressed:
Nausea, volume contraction, pneumobilia, abdominal pain, constipation
*Radiology
Radiology exam reviewed: preliminary read by ED provider (No free air noted) and radiology read reviewed
*Pulse Oximetry
Patient hypoxic: no
*EKG
Interpreted by ED Provider?: Yes
Interpretation: abnormal
Rhythm: a-fib
Buena: normal axis
Ischemia: non-specific ST changes
*Financial Planner Interpretation
Rate: normal
Interpretation: abnormal
Rhythm: a-fib
*Critical Care Note
Total Time (30-74mins, 75-104mins- exclusive of procedures): Not Applicable
Data Reviewed
Review of Other/Old Records Reveals: Discharge Summary (Discharge summary reviewed from June 2023)
Source: patient
Patient Management
Discussion with other providers: Hospitalist
Escalation/DeEscalation of care consider admission/obs:
Patient overall appears well but continues to report he does not feel well. Lactic is mildly elevated. Does have new pneumobilia but could be from previous procedure. The patient's complaint is mostly lower abdomen. Cover with antibiotics but
question constipation. Likely can benefit from GI consultation
ED Attending Note
-
Portions of this chart may have been created with voice recognition software.� Occasional wrong word or��sound alike� substitutions may have occurred due to the inherent limitations of voice recognition software.
Discharge Plan
Departure
Patient Disposition: Admit
Date of Disposition: 07/19/23
Time of Disposition: 18:13
Presentation/result/management discussed w/ accepting MD/DO: Hospitalist
Discharge Problem:
Abdominal pain, Elevated lactic acid level, Pneumobilia
Interventions
Interventions:
*Risk Screen - Suicide Last Done: 07/19/23 12:45
*General Assessment Last Done: 07/19/23 12:45
*Neglect/Abuse Screening Last Done: 07/19/23 12:45
ED- Neurological Assessment Last Done: 07/19/23 13:26
ED Swallowing Screen Last Done: 07/19/23 13:27
[2023-07-19] MEDS: ZOSYN 50 IV (18:27)
--- NOTE | 2023-07-19 18:56 | HPS.HSE ---
Family Physician
-
Family Physician: William Renner
Chief Complaint
-
abdominnal pain
History of Present Illness
78-year-old male past medical history of gastric bypass, choledocholithiasiswith LAMS stent, history of GI bleeding from stent irritation/erosion, GERD, HFpEF, paroxysmal atrial fibrillation, cognitive impairment, CVA, hyperlipidemia, chronic right
foot drop, orthostatic hypotension, hypertension, diabetes, anxiety/depression, superficial thrombosis of right cephalic vein, presenting for abdominal pain, nausea and lightheadedness. Abdominal pain is bilateral lower quadrants and constant and
feels like spasms. He felt sick in his stomach. He denies diarrhea, dark stool or bloody stool or constipation. No chest pain or shortness of breath. He has not lost any weight recently.
Patient was recently admitted here 2 months ago for orthostatic hypotension and acute blood loss anemia requiring blood transfusion. Patient had had EGD procedure with stone removal at [facility] in April. He had recurrent bleeding
concerning for bleeding from LAMS stent. He had repeat EGD and colonoscopy showed normal esophagus and Axios stent in place without clear source of bleeding. Colonoscopy showed some polyps and diverticulosis and lipoma ascending colon. GI felt
patient was having periodic bleeding from LAMS stent and patient was transferred to [facility].
Patient and his have poor knowledge of patient's GI history and thinks that he may have had further interventions at [place] although they are not sure.
Medical History
Past Medical History
Past Medical History: Reports Other (gastric bypass, choledocholithiasiswith LAMS stent, history of GI bleeding from stent irritation/erosion, GERD, HFpEF, paroxysmal atrial fibrillation, cognitive impairment, CVA, hyperlipidemia, chronic right foot
drop, orthostatic hypotension, hypertension, diabetes, anxiety/depression, superficial )
Past Surgical History: Reports Other (Cholecystectomy, Orthopedic and Other (Gastric bypass))
Social History
Tobacco: Non-smoker
Alcohol: None
Drug: None
Family History
Family History: Not pertinent
Allergies / Home Medications
Allergies reflects when Allergies were last updated in [employer].
Home Medications with original date entered in [employer]
Allergy/Medication List:
Allergies
Allergy/AdvReac Type Severity Reaction Status Date / Time
meperidine HCl [From Demerol] Allergy gets hyper Verified 07/19/23 12:51
ondansetron [From Zofran] Allergy N/V Verified 07/19/23 12:51
Home Medications
ferrous sulfate 325 mg (65 mg iron) tablet (FeroSul) 325 mg PO HS Supplement 04/28/19
metformin 1,000 mg tablet 2,000 mg PO BID@0800,1700 Diabetes 04/28/19
gabapentin 100 mg capsule 200 mg PO DAILYPRN PRN pain 10/30/21
mirabegron 25 mg tablet,extended release 24 hr (Myrbetriq) 25 mg PO DAILY Urinary issue 10/30/21
cholecalciferol (vitamin D3) 25 mcg (1,000 unit) tablet 25 mcg PO DAILY Supplement 01/06/22
citalopram 40 mg tablet 40 mg PO DAILY Mental Health/Anxiety 01/06/22
cyanocobalamin (vitamin B-12) 100 mcg tablet 100 mcg PO DAILY Supplement 01/06/22
pravastatin 40 mg tablet 40 mg PO HS High cholesterol 01/06/22
venlafaxine 150 mg capsule,extended release 24 hr 150 mg PO DAILY Mental Health/Anxiety 07/06/22
apixaban 5 mg tablet (Eliquis) 5 mg PO BID Blood Clot Prevention/Tx #60 tabs 05/21/23
aluminum-mag hydroxide-simethicone 200 mg-200 mg-20 mg/5 mL oral susp 10 ml PO QID PRN indigestion 07/19/23
fludrocortisone 0.1 mg tablet 0.1 mg PO BID 07/19/23
omeprazole 40 mg capsule,delayed release 40 mg PO DAILY 07/19/23
polyethylene glycol 3350 17 gram oral powder packet (Miralax) 17 g PO DAILY PRN constipation 07/19/23
Review of Systems
-
History Source: Patient
A 12 point ROS was completed and negative except as noted: Yes
Constitutional: Reports No Symptoms
EENT: Reports No Symptoms
Respiratory: Reports No Symptoms
Cardiac: Reports No Symptoms
Abdomen/GI: Reports See HPI
: Reports No Symptoms
Musculoskeletal: Reports No Symptoms
Skin: Reports No Symptoms
Neurological: Reports No Symptoms
Endocrine: Reports No Symptoms
Hematologic/Lymphatic: Reports No Symptoms
Psych: Reports No Symptoms
Physical Exam
Vital Signs
Vital Signs
Temp Pulse Resp BP Pulse Ox
98.3 F 94 22 110/75 98
07/19/23 12:45 07/19/23 17:30 07/19/23 17:30 07/19/23 17:30 07/19/23 17:30
Physical Exam
General: Well Developed, Well Nourished and No Apparent Distress
HEENT: NormoCephalic, Moist mucous membranes and Atraumatic
Respiratory: Clear
Cardiac: S1/S2 and Regular Rhythm; No Murmur or Rub
GI: Non Distended, Normal Bowel Sounds and Tender (lower quadrants ); No Organomegaly
Rectal: Deferred by Provider
Musculoskeletal: No Clubbing, No Cyanosis and No Edema
Skin: No Rash
Neuro: Nonfocal/grossly intact
Laboratory Results
-
07/19/23 12:53
07/19/23 12:53
Laboratory Results
Lactic Acid 2.4 mmol/L (0.7-2.0) H 07/19/23 13:01
Total Bilirubin 0.5 mg/dl (0.2-1.3) 07/19/23 12:53
AST 25 U/L (17-59) 07/19/23 12:53
ALT 15 U/L (0-50) 07/19/23 12:53
Alkaline Phosphatase 75 U/L (38-126) 07/19/23 12:53
Lipase 98 U/L (23-300) 07/19/23 12:53
Data Reviewed
-
Lab Data: Labs Reviewed by me
Old Records: Reviewed
Impression/Plan
-
IMPRESSION:
PLAN:
# Abdominal pain secondary to constipation/colonic ileus//pneumobilia
# Severe biliary dilatation/pneumobilia possibly due to recent intervention at [place]
# History of biliary stone status post LAMS stent in April at [place]
-Lactic acid 2.4 but no other lab abnormality
-Request records from [facility]
-Clear liquid diet
-Patient given IV fluids, Zosyn although no clear indication for antibiotic, hold further antibiotic
-Continue IV fluids
-Hold Eliquis for now in case further interventions are required, switch to heparin drip given recent thrombosis of right cephalic vein
-GI consulted
History of GI bleeding secondary to oozing from LAMS stent
-No bleeding at the current time
Constipation
-Continue bowel regimen
Recent Extensive thrombosis of right cephalic vein
-Heparin drip
Chronic iron deficiency anemia
History of gastric bypass
GERD
-Continue omeprazole
CAD status post stents
Chronic HFpEF
Paroxysmal atrial fibrillation
-Hold Eliquis
Orthostatic hypotension
-Continue fludrocortisone
Essential hypertension
Right cephalic vein from
Memory impairment
History of CVA
-Continue statin
Hyperlipidemia
Chronic right foot drop
Type 2 diabetes
-Hold metformin
-Insulin sliding scale
Anxiety/depression
-Continue citalopram, venlafaxine
Full code
DVT prophylaxis�heparin drip
N.p.o.
[2023-07-19 21:06] LABS: Hematocrit 34.7 % (39.0-52.0); Hemoglobin 11.3 g/dL (13.0-18.0); Mean Corp Hgb Conc. 32.6 g/dL (33.0-37.0); Mean Corpuscular Hgb 26.8 pg (27.0-31.0); Mean Corpuscular Volume 82.2 fL (80.0-94.0); Mean Platelet Volume 9.6 fL (7.4-10.4); Platelet Count 125 10^3/uL (130-400); Red Blood Cell Count 4.22 10^6/uL (4.70-6.10); Red Cell Dist. Width 16.9 % (11.5-14.5); White Blood Cell Count 5.2 10^3/uL (4.8-10.8)
[2023-07-19 21:07] LABS: Glucose - Point of Care 193 mg/dl (70-99)
[2023-07-19 21:20] LABS: APTT 28.7 Sec (23.4-35.0)
[2023-07-19] MEDS: HEPARIN 25000 UNITS/250 ML IV (21:34)
[2023-07-19] MEDS: PRAVACHOL 40 MG PO (21:48)
[2023-07-19] MEDS: FEOSOL 325 MG PO (21:48)
[2023-07-19] MEDS: FLORINEF 0.100000000000000006 MG PO (21:50)
[2023-07-19] MEDS: FLUSH (NSS) 2 FLUSH IV (22:36)
[2023-07-19] MEDS: DILAUDID 0.5 MG IV (22:36)
[2023-07-19 22:51] LABS: Urine Albumin Trace (Neg - Trace); Urine Bilirubin 1+ (Negative); Urine Character Clear (Clear); Urine Color Yellow; Urine Glucose Negative (Negative); Urine Ketone Trace (Negative); Urine Leukocyte Negative (Negative); Urine Nitrite Negative (Negative); Urine Occult Blood Negative (Negative); Urine Urobilinogen 1+ (Neg - 1+); Urine pH 6.5 (5.0-9.0)
[2023-07-19] MEDS: MAALOX 10 ML PO (23:45)
[2023-07-20 04:23] LABS: % Basophils 0.4 % (0-2); % Eosinophils 0.8 % (0-6); % Immature Granulocytes 0.6 % (0-0.5); % Lymphocytes 15.6 % (20.5-51.1); % Monocytes 15.2 % (1.7-9.3); % Neutrophils 67.4 % (42.2-75.2); Absolute Lymphocytes 0.8 10^3/uL (1.2-3.4); Absolute Monocytes 0.7 10^3/uL (0.1-0.6); Absolute Neutrophils 3.3 10^3/uL (1.4-6.5); Hemoglobin 10.9 g/dL (13.0-18.0); Mean Corp Hgb Conc. 31.1 g/dL (33.0-37.0); Mean Corpuscular Hgb 26.7 pg (27.0-31.0); Mean Corpuscular Volume 85.6 fL (80.0-94.0); Mean Platelet Volume 10.1 fL (7.4-10.4); Nucleated Red Blood Cells % 0 % (-); Platelet Count 126 10^3/uL (130-400); Red Blood Cell Count 4.09 10^6/uL (4.70-6.10); Red Cell Dist. Width 16.8 % (11.5-14.5); White Blood Cell Count 4.9 10^3/uL (4.8-10.8)
[2023-07-20 04:41] LABS: APTT 161.2 Sec (23.4-35.0)
[2023-07-20 05:49] LABS: ALT (SGPT) 15 U/L (0-50); AST (SGOT) 29 U/L (17-59); Albumin 3.1 g/dl (3.5-5.0); Alkaline Phosphatase 66 U/L (38-126); Blood Urea Nitrogen 20 mg/dl (9-20); Calcium 8.8 mg/dl (8.4-10.2); Carbon Dioxide 29 mmol/L (22-30); Chloride 104 mmol/L (98-107); Estimated Creatinine Clearance 76 ml/min; Glucose 110 mg/dl (70-99); Potassium 4.4 mmol/L (3.5-5.1); Sodium 138 mmol/L (135-145); Total Bilirubin 0.5 mg/dl (0.2-1.3); Total Protein 5.5 g/dl (6.3-8.2); eGFR > 60.00
[2023-07-20 07:32] VITALS: BP 112/69
[2023-07-20 07:50] LABS: Glucose - Point of Care 102 mg/dl (70-99)
[2023-07-20] MEDS: CELEXA 40 MG PO (08:14)
[2023-07-20] MEDS: PROTONIX 40 MG PO (08:14)
[2023-07-20] MEDS: FLORINEF 0.100000000000000006 MG PO ×2 (08:14→20:05)
[2023-07-20] MEDS: EFFEXOR XR 150 MG PO (08:14)
[2023-07-20] MEDS: VITAMIN B-12 100 MCG PO (08:14)
[2023-07-20] MEDS: VITAMIN D3 (cholecalciferol) 25 MCG PO (08:15)
[2023-07-20] MEDS: NOVOLOG FLEXPEN-LOW RESISTANCE SC ×3 (08:25→17:40)
[2023-07-20 08:32] LABS: Glycohemoglobin (HgbA1c) 5.6 % (4.0-5.6)
--- NOTE | 2023-07-20 09:43 | CON.GI ---
Addendum entered and electronically signed by Amalia Penn MD 07/20/23 18:57:
I saw and examined the patient.
The EYELET CUTTER or PA's note was reviewed and I agree with the note.
Comment: 78-year-old gentleman past medical history of gastric bypass, history of choledocholithiasis requiring ERCP with Axios stent at [facility], history of GI bleeding, currently here with abdominal pain. He underwent a CT scan here which showed
pneumobilia.He also had significant stool in his colon. Since I have seen him, Olga gave him an enema and since then he has been having multiple bowel movements. The first bowel movement did have some blood and there was concern and the heparin
drip was held. When I came to see the patient, he was on the commode having multiple brown bowel movements. I discussion with him, his pain is mostly lower abdomen and feels improved with having a bowel movement. I suspect his etiology of his
pain is from constipation. In regards to his pneumobilia, I did review with Dr. Mo. His LFTs are normal. Perhaps this is related to his prior intervention at [facility]. Therefore, I do not recommend any further imaging at this time.
We will continue to follow patient and see how he does. I discussed with the hospitalist as well and told her she can restart the heparin drip from a GI standpoint since the bleeding seems to be more traumatic from the enema and he is now having
brown bowel movements. We will monitor his hemoglobin as well as his bowel movements for any further bleeding.
Original Note:
Consultation
-
Date/Time Consultation Requested: 07/19/23 @ 20:05
Date/Time Consultation Performed: 07/20/2023 @ 09:45
Requesting Provider: Dr. Mcdaniel
Performing Provider: MANDA Marley; Dr. Tayla Penn
Reason for Consultation: pneumobilia, ileus, abdominal pain
Medical History
Chief Complaint / HPI
Chief Complaint: abdominal pain
History of Present Illness:
The patient is an 78 yo male with a PMH significant for hx of gastric bypass, GERD, HFpEF, recent GI bleeding (seen here and transferred [facility] with bleeding from ?LAMS stent), hx of choledocholithiasis requiring EGDE procedure with AXIOS stent
at [facility] in Apr 2023, cognitive impairment, CVA, HLD, HTN, DM2, anxiety/depression, superficial thrombosis right cephalic vein on Eliquis, Afib, orthostatic hypotension, who presented to the ER with complaints of abdominal pain. We are being
asked to evaluate for the presenting symptom with findings of pneumobilia/ileus/constipation on CT imaging. Upon review of prior records, the patient had been seen here in mid May with complaints of weakness and arm swelling. He had been found
to have an extensive thrombus and was started on Eliquis. He had subsequent anemia and hypotension with a hemoglobin of 9.1 down from 13.7 in April. At this time he did have iron deficiency anemia. Placed on PPI and did undergo EGD and
colonoscopy on 05/18 and 05/20 with no source of bleeding identified. Due to ongoing anemia he was transferred to [facility] for stent removal with Dr. Zavala due to concern for recurrent GI bleed from this source. He had prior EDGE procedure at
[facility] in April for choledocholithiasis and had AXIOS stent placed at that time. He was advised to follow-up with [facility] going forward. He presents now with complaints of abdominal pain. The patient is somewhat of a poor historian as he
does not know much in regards to his medical history or medications, but he notes that he has been having worsening abdominal pain since yesterday he notes that he does have pain off and on in his abdomen but notes that it was more severe yesterday
in the lower mid to left abdomen. He denies any history of constipation but notes he does have a bowel movement every few days. He denies any obvious black or blood in the stool and notes that his stool color has been green in color. He denies
any overt diarrhea. He denies any nausea, vomiting, fevers, chills, chest pain, shortness of breath, heartburn, or reflux symptoms. He notes that he was started on a blood thinner, which she believes he last took yesterday morning. He reports he
has lost some weight but unclear as to the amount and in what period of time. He notes that he does have a good appetite and eats well. He denies any daily bowel regimen. When queried on his recent admission at [facility] he is unsure as to what
was done. Routine labs in the emergency showed a hemoglobin of 10.9, WBC 4.9, platelets 126,000, sodium 138, potassium 4.4, BUN 20, creatinine 0.8, lactic acid 2.4, total bilirubin 0.5, AST 29, ALT 15, alk phos 66, lipase 98. CT imaging was done
showing numerous findings as noted below but moderate volume of fecal material and moderate distention of the ascending and transverse colon with moderate air distention of the splenic flexure of the colon suggestive of constipation and colonic
ileus, with otherwise no evidence of small bowel obstruction, pneumoperitoneum or, or ascites. There is also evidence of severe biliary dilation and large amount of pneumobilia in the liver. He was placed on clear liquid diet, IV heparin, and
admitted for further evaluation by GI.
Past Medical History
Past Medical History: Arrhythmias (Afib), CAD (with stent), CHF (HFpEF), CVA, GERD, HTN, Hypercholesterolemia, NIDDM, Psychiatric (Anxiety, depression) and Other (Rou-en-Y gastric bypass, GI bleed, iron deficiency anemia, hx choledochoithiasis with
EDGE procedure/AXIOS stent at [facility] Apr 2023, cognitive impariment, cephalic vein thrombosis on Eliquis, chronic foot drop)
Past Surgical History: Cholecystectomy and Other (Gastric bypass)
Social History
Tobacco: Non-Smoker
Alcohol: None
Drug: None
Personal:
Living: With Family
Family History
Family History: Reviewed & Not Pertinent
Allergies / Home Medications
Allergy/AdvReac Type Severity Reaction Status Date / Time
meperidine HCl [From Demerol] Allergy gets hyper Verified 07/19/23 12:51
ondansetron [From Zofran] Allergy N/V Verified 07/19/23 12:51
Medication Instructions Recorded
ferrous sulfate 325 mg (65 mg 325 mg PO HS Supplement 04/28/19
iron) tablet (FeroSul)
metformin 1,000 mg tablet 2,000 mg PO BID@0800,1700 Diabetes 04/28/19
gabapentin 100 mg capsule 200 mg PO DAILYPRN PRN pain 10/30/21
mirabegron 25 mg tablet,extended 25 mg PO DAILY Urinary issue 10/30/21
release 24 hr (Myrbetriq)
cholecalciferol (vitamin D3) 25 25 mcg PO DAILY Supplement 01/06/22
mcg (1,000 unit) tablet
citalopram 40 mg tablet 40 mg PO DAILY Mental 01/06/22
Health/Anxiety
cyanocobalamin (vitamin B-12) 100 100 mcg PO DAILY Supplement 01/06/22
mcg tablet
pravastatin 40 mg tablet 40 mg PO HS High cholesterol 01/06/22
venlafaxine 150 mg 150 mg PO DAILY Mental 07/06/22
capsule,extended release 24 hr Health/Anxiety
apixaban 5 mg tablet (Eliquis) 5 mg PO BID Blood Clot 05/21/23
Prevention/Tx #60 tabs
aluminum-mag hydroxide-simethicone 10 ml PO QID PRN indigestion 07/19/23
200 mg-200 mg-20 mg/5 mL oral susp
fludrocortisone 0.1 mg tablet 0.1 mg PO BID 07/19/23
omeprazole 40 mg capsule,delayed 40 mg PO DAILY 07/19/23
release
polyethylene glycol 3350 17 gram 17 g PO DAILY PRN constipation 07/19/23
oral powder packet (Miralax)
Review of Systems
-
History Source: Patient
Constitutional: Reports Weight Loss
EENT: Reports No Symptoms
Respiratory: Reports No Symptoms
Cardiac: Reports No Symptoms
Abdomen/GI: Reports Abdominal Pain
: Reports No Symptoms
Musculoskeletal: Reports No Symptoms
Skin: Reports No Symptoms
Neurological: Reports No Symptoms
Vital Signs
Temp Pulse Resp BP Pulse Ox
98 F 74 18 112/69 98
07/20/23 07:32 07/20/23 07:32 07/20/23 07:32 07/20/23 07:32 07/20/23 07:32
Physical Exam
Exam
General: No Apparent Distress, Comfortable and Other (Chronically ill/elderly appearing male in no acute distress)
HEENT: Normocephalic, Anicteric and Atraumatic
Respiratory: Clear
Cardiac: S1/S2
GI: Soft, Non Distended, Normal Bowel Sounds and Tender (Minimal tenderness to the right lower quadrant and left lower quadrant)
Rectal: Other (No stool in the rectal vault)
Neuro: Awake and Alert
Psych: Calm
Results
WBC 4.9 10^3/uL (4.8-10.8) 07/20/23 04:05
Hgb 10.9 g/dL (13.0-18.0) L 07/20/23 04:05
Hct 35.0 % (39.0-52.0) L 07/20/23 04:05
MCV 85.6 fL (80.0-94.0) 07/20/23 04:05
Plt Count 126 10^3/uL (130-400) L 07/20/23 04:05
Absolute Neuts (auto) 3.3 10^3/uL (1.4-6.5) 07/20/23 04:05
APTT 161.2 Sec (23.4-35.0) H* 07/20/23 04:05
Sodium 138 mmol/L (135-145) 07/20/23 04:05
Potassium 4.4 mmol/L (3.5-5.1) 07/20/23 04:05
Chloride 104 mmol/L (98-107) 07/20/23 04:05
Carbon Dioxide 29 mmol/L (22-30) 07/20/23 04:05
BUN 20 mg/dl (9-20) 07/20/23 04:05
Creatinine 0.8 mg/dL (0.7-1.3) 07/20/23 04:05
Calcium 8.8 mg/dl (8.4-10.2) 07/20/23 04:05
Total Bilirubin 0.5 mg/dl (0.2-1.3) 07/20/23 04:05
AST 29 U/L (17-59) 07/20/23 04:05
ALT 15 U/L (0-50) 07/20/23 04:05
Alkaline Phosphatase 66 U/L (38-126) 07/20/23 04:05
Lipase 98 U/L (23-300) 07/19/23 12:53
Diagnostic Image Results:
07/19/2023 CT A/P w/ IV and oral contrast: IMPRESSION:
'1. � Moderate volume of fecal material and moderate distention of the ascending colon and transverse colon. Moderate air distention of the splenic flexure of the colon. The appearance is most suggestive of constipation and a colonic ileus.
2. � No CT evidence for small bowel obstruction, pneumoperitoneum, or ascites.
3. � Previous gastric bypass surgery.
4. � Severe biliary dilatation and large amount of pneumobilia in the liver.
5. � Previous cholecystectomy.
6. � Moderate to severe left renal cortical volume loss which is probably secondary to chronic ischemia.
7. � Small bilateral nonobstructing intrarenal calculi.
8. � Mild splenomegaly.
9. � Mild cardiomegaly.
10. � Severe calcific atherosclerotic plaque in the coronary arteries.'
Prior GI Procedures:
05/18/23 �EGD, Dr. Oviedo: Normal esophagus.Gastric bypass with a normal-sized pouch and intact
�� � � � � � � � � � � with Axios stent accessing the excluded stomach staple line. Gastrojejunal anastomosis characterized� healthy appearing mucosa - Non-bleeding jejunal diverticulum� - No specimens collected.
05/20/23 colonoscopy: A diminutive polyp was found in the transverse colon, sessile polyp, 4 mm polyp splenic flexure, large lipoma ascending, diverticulosis, prominent ileocecal valve
�� � � � � � path with TA, TC
Assessment / Plan
-
The patient is an 78 yo male with a PMH significant for hx of gastric bypass, GERD, HFpEF, recent GI bleeding (seen here and transferred [facility] with bleeding from ?LAMS stent), hx of choledocholithiasis requiring EGDE procedure with AXIOS stent
at [facility] in Apr 2023, cognitive impairment, CVA, HLD, HTN, DM2, anxiety/depression, superficial thrombosis right cephalic vein on Eliquis, Afib, orthostatic hypotension, who presented to the ER with complaints of abdominal pain. We are being
asked to evaluate for the presenting symptom with findings of pneumobilia/ileus/constipation on CT imaging. He notes on and off abdominal pain, worsened yesterday. CT findings consistent with ileus/constipation with evidence of pneumobilia of the
liver (which is new) with severe intrahepatic ductal dilation, which was seen previously on prior CT imaging. His LFTs are normal. He does not have any nausea or vomiting. It is unclear the course of events after his transfer to [facility] in
May as the patient is a poor historian and does not recall what was done there. Lipase level is normal.
Problem list:
-abdominal pain
-CT imaging showing pneumobilia, severe intrahepatic biliary ductal dilation
-Constipation, seen on CT
-hx Iron deficiency anemia
-hx EGDE procedure at [facility] 04/2023 with AXIOS stent
-hx GI bleed with admission early May at [facility] with oozing from LAMS stent
-hx multiple admission to [facility] with hypotension last fall
-gastric bypass for wt loss several years ago
-orthostatic hypotension
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
Other pertinent medical hx:
-memory issues
-hx CVA
-CAD with prior stenting
-HTN
-NIDDM
-GERD
-depression/anxiety
Recommendations:
-Etiology of abdominal pain possibly secondary to ileus with significant constipation versus underlying biliary etiology versus other.
---To have Dr. Mo review his CT imaging
-Will obtain records from [facility] from recent hospitalization in May with his history as noted above
-Will start on a bowel regimen. Hold off on enema at this time as he is on a heparin drip with mild thrombocytopenia, if no bowel movement by tomorrow, consider enema (there is no stool impaction in the rectum).
-Heparin gtt was started by the medical team in case of procedures although no urgent need at this time as he does not appear toxic and his LFTs are normal.
-Monitor LFTs
-Consider additional imaging with MRI/MRCP pending record review (discussed with Dr. Mo and Dr. Penn)
-Continue clear liquid diet for now
-Limit use of narcotics
-Will follow
Data Reviewed
-
CT Scan: Report Reviewed by me and Discussed with Physician
Old Records: Reviewed
-
-
Thank you for consultation and allowing me to participate in the patient's care. Please call the freight traffic consultant GI physician during the after hours with any questions or concerns.
--- NOTE | 2023-07-20 11:47 | CM ---
CM met with pt bedside and reviewed chart
Pt notes he resides with his spouse in a 1SH with OSTE
He notes independence with his ADLs with use of SPC or WW at baseline
Notes to drives+
Pt has hx with [facility] and acute rehab at [facility]
PCP- William Renner
Rx- [facility]
VM left with spouse to verify PLOF as chart notes limited historian
CM will follow for dc planning
Discharge Disposition- home, follow for needs
[2023-07-20] MEDS: NSS 1000 IV (12:16)
[2023-07-20 12:19] LABS: Glucose - Point of Care 101 mg/dl (70-99)
[2023-07-20 12:25] LABS: APTT 83.3 Sec (23.4-35.0)
[2023-07-20] MEDS: SENOKOT-S 1 TABLET PO (12:54)
--- NOTE | 2023-07-20 14:27 | W.PN.HOSP.TC ---
Today's Communication/Plan
-
Continue clears
Bowel regimen
Heparin drip and hold Eliquis
Assessment / Plan
Assessment / Plan
78-year-old man was admitted here in May 2023 to evaluate for GI bleeding. Endoscopy and colonoscopy did not show any sources therefore patient was sent to [facility] for stent removal with Dr. Zavala. He had had EDGE procedure done at [facility]
in April 2023 for choledocholithiasis and had Axios stent placement at that time. Patient also has constipation. Denies any bloody bowel movements. Patient does not know what was done at [facility] at the transfer.
Endoscopy 05/18/2023-normal esophagus, gastric bypass with normal-sized pouch intact with Axios stent accessing the excluded stomach staple line. GJ anastomosis characterized by healthy-appearing mucosa. Nonbleeding jejunal diverticulum.
Colonoscopy 05/20/2023-diminutive polyp in the transverse colon, 4 mm polyp in the splenic flexure, large lipoma ascending colon, diverticulosis, prominent ileocecal valve
CVS: S1-S2 normal
Chest: CTA B/L
Abdomen: Soft, mild LLQ discomfort, Bowel sounds present
Extremities: No edema, normal pulses
LAY MIDWIFE: Cognitive dysfunction?
# Abdominal pain
Likely secondary to constipation
Also has biliary dilatation with pneumobilia
GI consulted on clear liquids
Bowel regimen, also given enema
Stop IV fluids
Get records from [facility]
Eliquis on hold in case needs any procedures. On heparin drip
# History of GI bleed-was seen at [facility] and transferred to [facility]
History of choledocholithiasis requiring EDGE procedure which Axios stent done at [facility] in April 2023
Endoscopy and colonoscopy May without any evidence of bleeding
# Mild thrombocytopenia-follow
# Diabetes-with neuropathy
On gabapentin and metformin 2000 BID as OP
Metformin 850 BID ordered here now
SSI

# History of gastric bypass surgery/GERD-PPI to be continued
# Chronic heart failure with preserved ejection fraction
Echo 05/17/2023-normal LV size, wall thickness and systolic function. Normal RV size and function. Mild MR. Mild to moderate TR. Mildly dilated aortic root.
Not on goal-directed therapy likely secondary to chronic orthostatic hypotension
# Coronary artery disease with a stent-continue statin and is not on an antiplatelet
Eliquis on hold in case needs any procedures. On heparin drip
# Paroxysmal atrial fibrillation-
Eliquis on hold in case needs any procedures. On heparin drip
Not on any rate controlling agents
# Chronic orthostatic hypotension-on Florinef
# History of CVA- statin
Eliquis on hold in case needs any procedures. On heparin drip
# Hyperlipidemia/atherosclerosis-continue statin
# Hypertension
# COVID dysfunction
# Anxiety and depression-Celexa, venlafaxine
# Superficial thrombosis of the right cephalic vein
Eliquis on hold in case needs any procedures. On heparin drip
# History of iron deficiency anemia
# Nephrolithiasis
# Sleep apnea
# Ex-smoker
# DVT prophylaxis-Heparin gtt
# Full code
Discussed with GI
Called Daughter , went to message
Called , went to message
Anticipated Discharge: > 48 hours
Subjective/Interval History
-
Date of Service: July 20, 2023
Objective Data
-
Labs:
Laboratory Results
07/20/23 07/20/23
04:05 12:07
WBC 4.9
Hgb 10.9 L
Hct 35.0 L
Plt Count 126 L
APTT 161.2 H* 83.3 H
Sodium 138
Potassium 4.4
Chloride 104
Carbon Dioxide 29
BUN 20
Creatinine 0.8
Glucose 110 H
Calcium 8.8
Total Bilirubin 0.5
AST 29
ALT 15
Alkaline Phosphatase 66
Vital Signs:
Vital Signs
Temp Pulse Resp BP Pulse Ox
98 F 74 18 112/69 98
07/20/23 07:32 07/20/23 07:32 07/20/23 07:32 07/20/23 07:32 07/20/23 07:32
I&O
07/19/23 07/20/23 07/21/23
06:59 06:59 06:59
Intake Total 1040 / 1040
Output Total 300 / 300
Balance 740 / 740
[2023-07-20 15:30] VITALS: BP 136/61
[2023-07-20] MEDS: MILK OF MAGNESIA 30 ML PO (15:44)
[2023-07-20 16:49] LABS: TSH 0.18 uIU/ml (0.47-4.68)
--- NOTE | 2023-07-20 17:32 | W.PN.UPDATE ---
Addendum entered and electronically signed by Janessa Layton MD 07/20/23 17:52:
OKay to continue Heparin per GI
Original Note:
Update Note
Progress Note Update
Success with enema. But patient has rectal bleeding. Repeat hemoglobin at 8 PM. Hold heparin drip
[2023-07-20 17:39] LABS: Glucose - Point of Care 95 mg/dl (70-99)
[2023-07-20] MEDS: GLUCOPHAGE 850 MG PO (17:40)
[2023-07-20] MEDS: HEPARIN 25000 UNITS/250 ML IV (19:04)
[2023-07-20] MEDS: SENOKOT-S PO (19:20)
[2023-07-20] MEDS: MIRALAX PO (19:20)
[2023-07-20] MEDS: FEOSOL 325 MG PO (20:05)
[2023-07-20] MEDS: PRAVACHOL 40 MG PO (20:05)
[2023-07-20 20:10] LABS: Hematocrit 35.2 % (39.0-52.0); Hemoglobin 10.7 g/dL (13.0-18.0)
[2023-07-20] MEDS: MAALOX 10 ML PO (20:56)
[2023-07-20 22:11] LABS: Glucose - Point of Care 91 mg/dl (70-99)
[2023-07-20 23:45] VITALS: BP 112/72
[2023-07-21 06:00] VITALS: BMI 28.2
[2023-07-21 06:19] LABS: Hemoglobin 10.4 g/dL (13.0-18.0); Mean Corp Hgb Conc. 30.6 g/dL (33.0-37.0); Mean Corpuscular Hgb 26.6 pg (27.0-31.0); Mean Platelet Volume 9.5 fL (7.4-10.4); Platelet Count 112 10^3/uL (130-400); Red Blood Cell Count 3.91 10^6/uL (4.70-6.10); Red Cell Dist. Width 16.8 % (11.5-14.5)
[2023-07-21 06:27] LABS: APTT 132.9 Sec (23.4-35.0)
[2023-07-21 07:00] VITALS: BP 123/70
[2023-07-21 07:44] LABS: ALT (SGPT) 15 U/L (0-50); AST (SGOT) 21 U/L (17-59); Albumin 2.9 g/dl (3.5-5.0); Alkaline Phosphatase 76 U/L (38-126); Blood Urea Nitrogen 11 mg/dl (9-20); Calcium 8.1 mg/dl (8.4-10.2); Carbon Dioxide 27 mmol/L (22-30); Chloride 107 mmol/L (98-107); Estimated Creatinine Clearance 87 ml/min; Glucose 82 mg/dl (70-99); Magnesium 1.6 mg/dl (1.6-2.3); Potassium 3.9 mmol/L (3.5-5.1); Sodium 138 mmol/L (135-145); Total Bilirubin 0.3 mg/dl (0.2-1.3); Total Protein 5.1 g/dl (6.3-8.2); eGFR > 60.00
--- NOTE | 2023-07-21 07:53 | W.PN.HOSP.TC ---
Addendum entered and electronically signed by Chaka Talamantes MD 07/21/23 17:59:
updated daughter over the phone today.
Original Note:
Today's Communication/Plan
-
restart diet ,restart eliquis, stop heparin drip, monitor hb. Discharge planning in progress.
Assessment / Plan
Assessment / Plan
78-year-old man was admitted here in May 2023 to evaluate for GI bleeding. Endoscopy and colonoscopy did not show any sources therefore patient was sent to [place] for stent removal with Dr. Zavala. He had had EDGE procedure done at [place]
in April 2023 for choledocholithiasis and had Axios stent placement at that time. Patient also has constipation. Denies any bloody bowel movements. Patient does not know what was done at [place] at the transfer.
Endoscopy 05/18/2023-normal esophagus, gastric bypass with normal-sized pouch intact with Axios stent accessing the excluded stomach staple line. GJ anastomosis characterized by healthy-appearing mucosa. Nonbleeding jejunal diverticulum.
Colonoscopy 05/20/2023-diminutive polyp in the transverse colon, 4 mm polyp in the splenic flexure, large lipoma ascending colon, diverticulosis, prominent ileocecal valve
CVS: S1-S2 normal
Chest: CTA B/L
Abdomen: Soft, mild LLQ discomfort, Bowel sounds present
Extremities: No edema, normal pulses
BUCKLE FRAME SHAPER: Cognitive dysfunction?
A/P:
# Abdominal pain
Likely secondary to constipation
Also has biliary dilatation with pneumobilia
GI consulted and appreciated input. Advanced to diabetic diet today.
Bowel regimen, also given enema
Stop IV fluids
Get records from [place]
Stop heparin drip today and restart Eliquis since no procedures planned per GI.
Recheck Hb in am
# History of GI bleed-was seen at [facility] and transferred to [place]
History of choledocholithiasis requiring EDGE procedure which Axios stent done at [place] in April 2023
Endoscopy and colonoscopy May without any evidence of bleeding
# Mild thrombocytopenia-follow
# Diabetes-with neuropathy
On gabapentin and metformin 2000 BID as OP
Metformin 850 BID ordered here now
SSI

# History of gastric bypass surgery/GERD-PPI to be continued
# Chronic heart failure with preserved ejection fraction
Echo 05/17/2023-normal LV size, wall thickness and systolic function. Normal RV size and function. Mild MR. Mild to moderate TR. Mildly dilated aortic root.
Not on goal-directed therapy likely secondary to chronic orthostatic hypotension
# Coronary artery disease with a stent-continue statin and is not on an antiplatelet
Stop heparin drip today and restart Eliquis since no procedures planned per GI.
# Paroxysmal atrial fibrillation-
Stop heparin drip today and restart Eliquis since no procedures planned per GI.
Not on any rate controlling agents
# Chronic orthostatic hypotension-on Florinef
# History of CVA- statin
Stop heparin drip today and restart Eliquis since no procedures planned per GI.
# Hyperlipidemia/atherosclerosis-continue statin
# Hypertension
# COVID dysfunction
# Anxiety and depression-Celexa, venlafaxine
# Superficial thrombosis of the right cephalic vein
Stop heparin drip today and restart Eliquis since no procedures planned per GI.
# History of iron deficiency anemia
# Nephrolithiasis
# Sleep apnea
# Ex-smoker
# DVT prophylaxis-Heparin gtt
# Full code
Anticipated Discharge: 24 - 48 hours
Subjective/Interval History
-
Date of Service: July 21, 2023
Patient feels better overall. No abdominal pain nausea vomiting. He has moved his bowels.
Objective Data
-
Labs:
Laboratory Results
07/20/23 07/21/23 07/21/23
20:04 06:07 12:50
WBC 4.0 L
Hgb 10.7 L 10.4 L
Hct 35.2 L 34.0 L
Plt Count 112 L
APTT 132.9 H Pending
Sodium 138
Potassium 3.9
Chloride 107
Carbon Dioxide 27
BUN 11
Creatinine 0.7
Glucose 82
Calcium 8.1 L
Total Bilirubin 0.3
AST 21
ALT 15
Alkaline Phosphatase 76
Vital Signs:
Vital Signs
Temp Pulse Resp BP Pulse Ox
98.8 F 81 17 112/72 97
07/20/23 23:45 07/20/23 23:45 07/20/23 23:45 07/20/23 23:45 07/20/23 23:45
I&O
07/20/23 07/21/23 07/22/23
06:59 06:59 06:59
Intake Total 1040 / 1040 1500 / 1500
Output Total 300 / 300 900 / 900
Balance 740 / 740 600 / 600
Review of Systems
-
All other systems: Reviewed and negative
[2023-07-21 08:38] LABS: Glucose - Point of Care 86 mg/dl (70-99)
[2023-07-21] MEDS: NOVOLOG FLEXPEN-LOW RESISTANCE SC ×2 (09:15→16:32)
[2023-07-21] MEDS: VITAMIN B-12 100 MCG PO (09:32)
[2023-07-21] MEDS: EFFEXOR XR 150 MG PO (09:32)
[2023-07-21] MEDS: PROTONIX 40 MG PO (09:32)
[2023-07-21] MEDS: GLUCOPHAGE 850 MG PO ×2 (09:32→16:38)
[2023-07-21] MEDS: CELEXA 40 MG PO (09:32)
[2023-07-21] MEDS: SENOKOT-S PO (09:33)
[2023-07-21] MEDS: FLORINEF 0.100000000000000006 MG PO ×2 (09:33→20:37)
[2023-07-21] MEDS: VITAMIN D3 (cholecalciferol) 25 MCG PO (09:33)
[2023-07-21] MEDS: MIRALAX PO (09:33)
--- NOTE | 2023-07-21 10:28 | W.PN.GI.CBS2 ---
Addendum entered and electronically signed by Amalia Penn MD 07/21/23 15:02:
I saw and examined the patient.
The [facility] ADMINISTRATOR or PA's note was reviewed and I agree with the note.
Comment: 78-year-old gentleman past medical history of gastric bypass, history of choledocholithiasis requiring ERCP with Axios stent at [facility], history of GI bleeding, currently here with abdominal pain.� He underwent a CT scan here which showed
pneumobilia.He also had significant stool in his colon.�
Feels much improved after having bowel movements - suspect all constipation related. Continue miralax daily can do bid if needed.
GI will sign off pls call with ?s.
Original Note:
Today's Communication / Plan
-
Advance diet. Bowel regimen. Resume blood thinner per medicine team with no plans for procedures. No new GI recommendations, call back with questions/concerns.
Assessment / Plan
-
The patient is an 78 yo male with a PMH significant for hx of gastric bypass, GERD, HFpEF, recent GI bleeding (seen here and transferred [facility] with bleeding from ?LAMS stent), hx of choledocholithiasis requiring EGDE procedure with AXIOS stent
at [facility] in Apr 2023, cognitive impairment, CVA, HLD, HTN, DM2, anxiety/depression, superficial thrombosis right cephalic vein on Eliquis, Afib, orthostatic hypotension, who presented to the ER with complaints of abdominal pain. We are being
asked to evaluate for the presenting symptom with findings of pneumobilia/ileus/constipation on CT imaging. He notes on and off abdominal pain, worsened yesterday. CT findings consistent with ileus/constipation with evidence of pneumobilia of the
liver (which is new) with severe intrahepatic ductal dilation, which was seen previously on prior CT imaging. His LFTs are normal. He does not have any nausea or vomiting. It is unclear the course of events after his transfer to [facility] in
May as the patient is a poor historian and does not recall what was done there. Lipase level is normal.
Problem list:
-abdominal pain
-CT imaging showing pneumobilia, severe intrahepatic biliary ductal dilation
-Constipation, seen on CT
-hx Iron deficiency anemia
-hx EGDE procedure at [facility] 04/2023 with AXIOS stent
-hx GI bleed with admission early May at [facility] with oozing from LAMS stent
-hx multiple admission to [place] with hypotension last fall
-gastric bypass for wt loss several years ago
-orthostatic hypotension
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
Other pertinent medical hx:
-memory issues
-hx CVA
-CAD with prior stenting
-HTN
-NIDDM
-GERD
-depression/anxiety
Recommendations:
-Etiology of abdominal pain likely secondary to ileus with significant constipation as he has improved since moving his bowels. Other CT findings likely chronic from prior GI procedures.
-Continue bowel regimen. Would recommend 1 capful of MiraLax daily on a regular basis and adjust based on stool response; along with a stool softener daily.
-High fiber diet and adequate hydration also advised.
-Ok to resume blood thinner with no plans for procedures from GI standpoint.
-Will advance diet
-Encourage ambulation
-Monitor H/H, stable without bleeding (hgb appears baseline).
-Limit use of narcotics
-If tolerating diet with no recurrent pain, ok for discharge from GI standpoint. He can follow-up in the office as needed.
-He should follow-up with [facility] as directed
-GI will sign off at this time, please call back with questions or concerns.
Subjective
Subjective
Date of Service: July 21, 2023
The pt was seen and examined at the bedside. He denies any significant abdominal pain and feels improved. He is moving his bowels. No further signs of bleeding. He is tolerating CLD.
Objective
Data Reviewed
Laboratory Data:
Laboratory Results
07/21/23 06:07
07/21/23 06:07
Laboratory Results
APTT 132.9 Sec (23.4-35.0) H 07/21/23 06:07
Magnesium 1.6 mg/dl (1.6-2.3) 07/21/23 06:07
Total Bilirubin 0.3 mg/dl (0.2-1.3) 07/21/23 06:07
AST 21 U/L (17-59) 07/21/23 06:07
ALT 15 U/L (0-50) 07/21/23 06:07
Alkaline Phosphatase 76 U/L (38-126) 07/21/23 06:07
Lipase 98 U/L (23-300) 07/19/23 12:53
Vital Signs and I&O:
Vital Signs
Temp Pulse Resp BP Pulse Ox
97.6 F 76 17 123/70 99
07/21/23 07:00 07/21/23 07:00 07/21/23 07:00 07/21/23 07:00 07/21/23 07:00
I&O
07/20/23 07/21/23 07/22/23
06:59 06:59 06:59
Intake Total 1040 / 1040 1500 / 1500
Output Total 300 / 300 900 / 900
Balance 740 / 740 600 / 600
Physical Exam
Physical Exam
HEENT: Anicteric
Cardiology: S1 and S2 (regular rate/rhythm)
Pulmonary: Clear
GI: Soft, Non Distended, Non Tender and Normal Bowel Sounds
Extremities: No Edema
Neuro: Non Focal
[2023-07-21 11:54] LABS: Glucose - Point of Care 153 mg/dl (70-99)
[2023-07-21] MEDS: NOVOLOG FLEXPEN-LOW RESISTANCE 1 UNITS SC (12:35)
[2023-07-21] MEDS: ELIQUIS 5 MG PO ×2 (12:36→20:28)
[2023-07-21 13:52] LABS: APTT 54.1 Sec (23.4-35.0)
[2023-07-21 15:00] VITALS: BP 123/81
[2023-07-21 16:26] LABS: Glucose - Point of Care 84 mg/dl (70-99)
--- NOTE | 2023-07-21 16:56 | CM ---
Spoke with patient in room . He said he would like VN at ut.
[facility] notified via text.
Requested PT OT for MD .
Pt forgetful at times.
PLAN Will depend on PT OT evals .
[2023-07-21] MEDS: MIRALAX 17 GRAMS PO (20:29)
[2023-07-21] MEDS: SENOKOT-S 1 TABLET PO (20:29)
[2023-07-21 21:52] LABS: Glucose - Point of Care 103 mg/dl (70-99)
[2023-07-21] MEDS: FEOSOL 325 MG PO (22:08)
[2023-07-21] MEDS: PRAVACHOL 40 MG PO (22:08)
[2023-07-21 23:00] VITALS: BP 127/74
[2023-07-22 05:35] LABS: Hemoglobin 10.1 g/dL (13.0-18.0); Mean Corp Hgb Conc. 31.6 g/dL (33.0-37.0); Mean Corpuscular Hgb 26.7 pg (27.0-31.0); Mean Corpuscular Volume 84.7 fL (80.0-94.0); Mean Platelet Volume 10.2 fL (7.4-10.4); Platelet Count 117 10^3/uL (130-400); Red Blood Cell Count 3.78 10^6/uL (4.70-6.10); Red Cell Dist. Width 16.8 % (11.5-14.5); White Blood Cell Count 4.5 10^3/uL (4.8-10.8)
[2023-07-22 05:58] LABS: Blood Urea Nitrogen 15 mg/dl (9-20); Calcium 8.9 mg/dl (8.4-10.2); Carbon Dioxide 27 mmol/L (22-30); Chloride 104 mmol/L (98-107); Estimated Creatinine Clearance 87 ml/min; Glucose 96 mg/dl (70-99); Potassium 4.1 mmol/L (3.5-5.1); Sodium 136 mmol/L (135-145); eGFR > 60.00
[2023-07-22 06:00] VITALS: BMI 28.4
[2023-07-22 07:00] VITALS: BP 130/79
--- NOTE | 2023-07-22 07:55 | W.PN.HOSP.TC ---
Addendum entered and electronically signed by Chaka Talamantes MD 07/22/23 16:32:
Pancytopenia
Original Note:
Today's Communication/Plan
-
Discharge planning today.
Assessment / Plan
Assessment / Plan
78-year-old man was admitted here in May 2023 to evaluate for GI bleeding. Endoscopy and colonoscopy did not show any sources therefore patient was sent to [place] for stent removal with Dr. Zavala. He had had EDGE procedure done at [place]
in April 2023 for choledocholithiasis and had Axios stent placement at that time. Patient also has constipation. Denies any bloody bowel movements. Patient does not know what was done at [place] at the transfer.
Endoscopy 05/18/2023-normal esophagus, gastric bypass with normal-sized pouch intact with Axios stent accessing the excluded stomach staple line. GJ anastomosis characterized by healthy-appearing mucosa. Nonbleeding jejunal diverticulum.
Colonoscopy 05/20/2023-diminutive polyp in the transverse colon, 4 mm polyp in the splenic flexure, large lipoma ascending colon, diverticulosis, prominent ileocecal valve
CVS: S1-S2 normal
Chest: CTA B/L
Abdomen: Soft, mild LLQ discomfort, Bowel sounds present
Extremities: No edema, normal pulses
[employer]: Cognitive dysfunction?
A/P:
# Abdominal pain
Likely secondary to constipation
Also has biliary dilatation with pneumobilia
GI consulted and appreciated input. Advanced to diabetic diet yesterday. Hb 10.1 today, stable
Bowel regimen, also given enema
Off IV fluids
Get records from [facility]
On Eliquis, no procedures plan per gi
Discussed with daughter over the phone yesterday
Plan to discharge today to home with home health
# History of GI bleed-was seen at [facility] and transferred to [place]
History of choledocholithiasis requiring EDGE procedure which Axios stent done at [place] in April 2023
Endoscopy and colonoscopy [place] [address] without any evidence of bleeding
# Mild thrombocytopenia-follow
# Diabetes-with neuropathy
On gabapentin and metformin 2000 BID as OP
Metformin 850 BID ordered here now
SSI

# History of gastric bypass surgery/GERD-PPI to be continued
# Chronic heart failure with preserved ejection fraction
Echo 05/17/2023-normal LV size, wall thickness and systolic function. Normal RV size and function. Mild MR. Mild to moderate TR. Mildly dilated aortic root.
Not on goal-directed therapy likely secondary to chronic orthostatic hypotension
# Coronary artery disease with a stent-continue statin and is not on an antiplatelet
Stop heparin drip today and restart Eliquis since no procedures planned per GI.
# Paroxysmal atrial fibrillation-
Stop heparin drip today and restart Eliquis since no procedures planned per GI.
Not on any rate controlling agents
# Chronic orthostatic hypotension-on Florinef
# History of CVA- statin
Stop heparin drip today and restart Eliquis since no procedures planned per GI.
# Hyperlipidemia/atherosclerosis-continue statin
# Hypertension
# COVID dysfunction
# Anxiety and depression-Celexa, venlafaxine
# Superficial thrombosis of the right cephalic vein
Stop heparin drip today and restart Eliquis since no procedures planned per GI.
# History of iron deficiency anemia
# Nephrolithiasis
# Sleep apnea
# Ex-smoker
# DVT prophylaxis-Heparin gtt
# Full code
Anticipated Discharge: Today
Subjective/Interval History
-
Date of Service: July 22, 2023
Patient seen and examined. No new complaints.
Objective Data
-
Labs:
Laboratory Results
07/22/23
05:16
WBC 4.5 L
Hgb 10.1 L
Hct 32.0 L
Plt Count 117 L
Sodium 136
Potassium 4.1
Chloride 104
Carbon Dioxide 27
BUN 15
Creatinine 0.7
Glucose 96
Calcium 8.9
Vital Signs:
Vital Signs
Temp Pulse Resp BP Pulse Ox
97.7 F 77 16 127/74 98
07/21/23 23:00 07/21/23 23:00 07/21/23 23:00 07/21/23 23:00 07/21/23 23:00
I&O
07/21/23 07/22/23 07/23/23
06:59 06:59 06:59
Intake Total 1500 / 1500 770 / 770
Output Total 900 / 900 600 / 600
Balance 600 / 600 170 / 170
Review of Systems
-
All other systems: Reviewed and negative
[2023-07-22 08:27] LABS: Glucose - Point of Care 102 mg/dl (70-99)
[2023-07-22] MEDS: NOVOLOG FLEXPEN-LOW RESISTANCE SC ×2 (08:40→13:02)
[2023-07-22] MEDS: VITAMIN B-12 100 MCG PO (09:36)
[2023-07-22] MEDS: CELEXA 40 MG PO (09:36)
[2023-07-22] MEDS: EFFEXOR XR 150 MG PO (09:36)
[2023-07-22] MEDS: PROTONIX 40 MG PO (09:36)
[2023-07-22] MEDS: VITAMIN D3 (cholecalciferol) 25 MCG PO (09:37)
[2023-07-22] MEDS: MIRALAX 17 GRAMS PO (09:38)
[2023-07-22] MEDS: ELIQUIS 5 MG PO (09:38)
[2023-07-22] MEDS: SENOKOT-S 1 TABLET PO (09:38)
[2023-07-22] MEDS: GLUCOPHAGE 850 MG PO (09:39)
[2023-07-22] MEDS: FLORINEF 0.100000000000000006 MG PO (09:48)
--- NOTE | 2023-07-22 10:43 | W.DCSUMMARY ---
Discharge Summary
Discharge Data
Date of Admission: 07/19/23
Date of Discharge: 07/22/23
-
Pending Results: No
Hospital Course
Patient 78 years old male with history of gastric bypass, choledocholithiasis requiring ERCP with Axios stent at [place], history of GI bleeding, hypertension, hyperlipidemia, CVA, diabetes mellitus, depression anxiety, cognitive deficits,
superficial thrombosis right cephalic vein, atrial fibrillation, orthostatic hypotension, presented to the hospital with abdominal pain and constipation and concerns for GI bleed. There was also some findings of pneumobilia on CT scan of the
abdomen along with constipation. GI was consulted. Findings of pneumobilia most likely related to recent procedures and GI felt his symptoms were related to constipation. He had aggressive bowel regimen including enemas. He did move his bowels
and he improved substantially. His hemoglobin miguel stable throughout. There was no signs of active GI bleed. He tolerated heparin drip that was later switched back to his oral Eliquis and he also tolerated that well in the hospital. GI cleared
him for discharge today. He has tolerated diet. We adjusted his medications to help him with his constipation as outpatient. Otherwise, patient is hemodynamically stable and his hemoglobin is 10.1 upon discharge today. No other events were
noticed. He will be discharged in stable condition today.
Discharge duration: 34 minutes
Discharge Plan
-
Patient Disposition: Home with Home Care
Discharge Diagnosis/Procedures: Constipation. History of gastrointestinal bleed from stent in the biliary tree in the past.
Diet: Low Cholesterol
Activity: As tolerated
Driving Restrictions: As prior to admission
Blood Work: Please PCP to order CBC, BMP within 1 week
Referrals:
William Renner DO [Family Provider] - in less than 1 week
Amalia Penn MD [Active] - in one to two weeks
Prescriptions:
New
sennosides-docusate sodium [Stool Softener-Stimulant Laxat] 8.6-50 mg Tablet
1 tab PO BID 15 Days Qty: 30 0RF
Continued
ferrous sulfate [FeroSul] 325 MG tablet
325 mg PO HS
metformin 1,000 MG tablet
2,000 mg PO BID@0800,1700
gabapentin 100 MG capsule
200 mg PO DAILYPRN PRN (Reason: pain)
cyanocobalamin (vitamin B-12) 100 mcg Tablet
100 mcg PO DAILY
citalopram 40 mg Tablet
40 mg PO DAILY
pravastatin 40 mg Tablet
40 mg PO HS
cholecalciferol (vitamin D3) 25 mcg (1,000 unit) Tablet
25 mcg PO DAILY
venlafaxine 150 mg Capsule,Extended Release 24hr
150 mg PO DAILY
Eliquis 5 mg Tablet
5 mg PO BID Qty: 60 0RF
omeprazole 40 mg capsule,delayed release(DR/EC)
40 mg PO DAILY
alum-mag hydroxide-simeth 200-200-20 mg/5 mL Suspension
10 ml PO QID PRN (Reason: indigestion)
fludrocortisone 0.1 mg tablet
0.1 mg PO BID
Changed
polyethylene glycol 3350 [Miralax] 17 gram Powder In Packet
17 g PO BID Qty: 0 0RF
Discharge Orders:
Discharge Patient (As Directed); Ordered 07/22/23
Ordered By: Chaka Talamantes
Discharge Date and Time
Discharge Date/Time: 07/22/23 13:21
[2023-07-22 10:45] VITALS: BP 108/74; BP 128/65; PULSE 70
[2023-07-22 11:00] VITALS: BP 127/78
--- NOTE | 2023-07-22 12:32 | CM ---
MD entered order for discharge.
[facility] set up for patient .
Several messages with brianne [phone] no answer.
Several message daughter Clair [phone] left text . She called back dc order and IMM reviewed with her . She agrees with dc today.
Daughter contacted [facility] respiratory care assistant who will pick me and and take him home today.RN and Floor aware.
PLAN Home with [facility]
--- NOTE | 2023-07-22 12:44 | VNURNOTE ---
Home Health Liaison met with patient at 1145 to discuss [facility] nurse/therapy, visits, schedule and homebound status. Patient is agreeable and understands that visits at home will be 2-3 x per week to assess and teach medical management.
[facility] brochure provided with contact information. Patient is aware that [facility] will contact him for start of care in 1-2 days after discharge from .
[facility] referral completed in [facility].
--- NOTE | 2023-07-22 14:59 | PN.CDI ---
CDI
- -
CDI:
Physician Documentation Request
Admit Date: 07/19/23 19:31
Dear Doctor Albin,
Clinical Indicators:
Patient admitted with abdominal pain, likely secondary to constipation.
07/21 PN, 'Mild thrombocytopenia'
WBC, RBC, Plt counts:
07/21/23 07/22/23
06:07 05:16
WBC 4.0 L 4.5 L
RBC 3.91 L 3.78 L
Plt Count 112 L 117 L
Based on the above, could you clarify in the progress notes, the appropriate diagnosis, if significant, that supports the above abnormalities and additional evaluation, monitoring and/or treatment rendered:
Pancytopenia
Thrombocytopenia only
Other, please specify
Use of terms such as suspected, likely, concern for, or probable (associated with a specific diagnosis that is being evaluated, monitored, or treated as if it exists) are acceptable and can be coded in the inpatient setting, when documented at the
time of discharge.
Thank you,
Danielle Dumont RN
CDI Specialist
Please use your independent medical judgment in providing your response.
== END 2023-07-22 13:21 | disposition home health service (06) | DRG 392 ==
LOC: 3 WEST ACU 19:31
PROVIDERS: Hospitalist; ADMITTING PHYSICIAN Hospitalist; ATTENDING PHYSICIAN Hospitalist; CONSULT PHYSICIAN Internal Medicine Gastroenterology; EMERGENCY PHYSICIAN Emergency Medicine; FAMILY PHYSICIAN Family Medicine
DX: K59.00 Constipation, unspecified (principal); K56.7 Ileus, unspecified; D61.818 Other pancytopenia; K92.2 Gastrointestinal hemorrhage, unspecified; I82.611 Acute embolism and thrombosis of superficial veins of right upper extremity; I50.32 Chronic diastolic (congestive) heart failure; Z87.891 Personal history of nicotine dependence; I48.0 Paroxysmal atrial fibrillation; D50.9 Iron deficiency anemia, unspecified; K21.9 Gastro-esophageal reflux disease without esophagitis; I25.10 Atherosclerotic heart disease of native coronary artery without angina pectoris; Z95.5 Presence of coronary angioplasty implant and graft; I11.0 Hypertensive heart disease with heart failure; I95.1 Orthostatic hypotension; M21.371 Foot drop, right foot; E11.9 Type 2 diabetes mellitus without complications; F32.A Depression, unspecified; F41.9 Anxiety disorder, unspecified; Z79.01 Long term (current) use of anticoagulants; E78.00 Pure hypercholesterolemia, unspecified
CPT/HCPCS: 74177; 80048; 80053; 81003; 82962; 83036; 83605; 83690; 83735; 84443; 85014; 85018; 85025; 85027; 85730; 93005; 96361; 96365; 97162; 99285; Q9967

== ENCOUNTER 2023-07-25 18:46 | Observation (INO) | payer OTHER, SELFPAY ==
[2023-07-25] VITALS (13 sets, daily range): BP systolic 92–123; BP diastolic 50–93; PULSE 71–101; BMI 28.8; BMI 27.6
[2023-07-25 12:31] LABS: % Basophils 0.4 % (0-2); % Eosinophils 0.4 % (0-6); % Immature Granulocytes 0.4 % (0-0.5); % Lymphocytes 12.8 % (20.5-51.1); % Monocytes 12.5 % (1.7-9.3); % Neutrophils 73.5 % (42.2-75.2); Absolute Lymphocytes 0.7 10^3/uL (1.2-3.4); Absolute Monocytes 0.7 10^3/uL (0.1-0.6); Hematocrit 33.7 % (39.0-52.0); Hemoglobin 10.4 g/dL (13.0-18.0); Mean Corp Hgb Conc. 30.9 g/dL (33.0-37.0); Mean Corpuscular Hgb 26.5 pg (27.0-31.0); Mean Corpuscular Volume 85.8 fL (80.0-94.0); Mean Platelet Volume 10.3 fL (7.4-10.4); Nucleated Red Blood Cells % 0 % (-); Platelet Count 132 10^3/uL (130-400); Red Blood Cell Count 3.93 10^6/uL (4.70-6.10); Red Cell Dist. Width 17.2 % (11.5-14.5); White Blood Cell Count 5.4 10^3/uL (4.8-10.8)
[2023-07-25 12:42] LABS: INR 1.14; PT 14.4 Sec (11.4-14.6)
[2023-07-25 12:48] LABS: ALT (SGPT) 15 U/L (0-50); AST (SGOT) 20 U/L (17-59); Albumin 3.1 g/dl (3.5-5.0); Alkaline Phosphatase 67 U/L (38-126); Blood Urea Nitrogen 16 mg/dl (9-20); Calcium 9.7 mg/dl (8.4-10.2); Carbon Dioxide 26 mmol/L (22-30); Chloride 106 mmol/L (98-107); Estimated Creatinine Clearance 76 ml/min; Glucose 123 mg/dl (70-99); Potassium 3.8 mmol/L (3.5-5.1); Sodium 137 mmol/L (135-145); Total Bilirubin 0.4 mg/dl (0.2-1.3); Total Protein 5.4 g/dl (6.3-8.2); eGFR > 60.00
[2023-07-25 12:58] LABS: Troponin I < 0.012 ng/ml
--- NOTE | 2023-07-25 14:48 | ED.GENMED ---
History of Present Illness
<DO Albert Hernadez Last Filed: 07/25/23 14:51>
General
Chief Complaint: Dizziness
Time Seen by Provider: 07/25/23 12:23
Travel History
Have you had any contact with someone who has COVID-19?: No
Do you have any symptoms of coronavirus? Fever > 100 degrees, chills, cough, shortness of breath, sore throat, loss of taste or smell, muscle aches, or headache?: No
History of Present Illness
History of Present Illness:
78-year-old male sent to the emergency room via EMS for feeling weak and dizzy. Patient appears to been discharged from the hospital on 07/21 after an admission for constipation. He was treated with enemas and ultimately felt better and was
discharged. Patient unable provide much in the way of history. He appears disheveled.
Past History
<Venkat Toribio DO - Last Filed: 07/25/23 14:51>
Past History
ED Past Medical History: Arrthythmia (Atrial fibrillation), CVA, GERD, HTN, NIDDM, [place] and Other (GI bleed, GI stent)
ED Past Surgical History: Cholecystectomy, Orthopedic and Other (Gastric bypass)
Patient has exhibited threatening behavior?: No
PSI?: No
Social History
Tobacco: Former smoker
Alcohol: None
Drug: None
Personal:
Living: with family
Employment: Not employed
Family History
Family History: Other (Noncontributory)
Phy Exam
<Venkat Toribio DO - Last Filed: 07/25/23 14:51>
Physical Exam
Physical Exam:
General: Awake, Alert, Oriented X3. Appears disheveled, chronically ill
Vitals: unremarkable
Head: Atraumatic
Eyes: Pupils equal, EOMI
Throat: Airway intact, no exudates, dry mucosa
Neck: Trachea midline
Lungs: Clear and equal b/l
Heart: Regular rate, no murmurs
Abd: Soft, Nontender, No pulsatile mass
Neuro: Nonfocal
Skin: Warm, dry, no rash
Extremities: pulses equal b/l, no edema
Course
<Venkat H. Catarino, DO - Last Filed: 07/25/23 14:51>
Orders/Labs/Results
Orders:
Orders
07/25/23 12:21
Electrocardiogram (*1) Urgent
Reason for Study: Chest Pain
EKG- Treatment ONCE
07/25/23 12:22
Complete Blood Count/With Diff Urgent
Comprehensive Metabolic Panel Urgent
Prothrombin Time Urgent
Troponin I Urgent
07/25/23 14:53
CT Head W/o Iv Contrast Urgent
Comment:
Reason For Exam: altered mental status
Straight cath- Treatment ONCE
07/25/23 15:15
Urinalysis Reflex To Culture Urgent
Date Specimen was Collected: 07/25/23
Time Specimen was Collected: 14:56
Abnormal Lab Results
07/25/23
12:22
RBC 3.93 L 10^6/uL
(4.70-6.10)
Hgb 10.4 L g/dL
(13.0-18.0)
Hct 33.7 L %
(39.0-52.0)
MCH 26.5 L pg
(27.0-31.0)
MCHC 30.9 L g/dL
(33.0-37.0)
RDW 17.2 H %
(11.5-14.5)
Absolute Lymphs (auto) 0.7 L 10^3/uL
(1.2-3.4)
Absolute Monos (auto) 0.7 H 10^3/uL
(0.1-0.6)
Lymphocytes % 12.8 L %
(20.5-51.1)
Monocytes % 12.5 H %
(1.7-9.3)
Glucose 123 H mg/dl
(70-99)
Total Protein 5.4 L g/dl
(6.3-8.2)
Albumin 3.1 L g/dl
(3.5-5.0)
07/25/23 12:22
07/25/23 12:22
Vital Signs
Initial and Last Documented VS:
Initial Vital Signs
Temp Pulse Resp BP Pulse Ox
98.3 F 80 24 105/69 100
07/25/23 12:11 07/25/23 12:11 07/25/23 12:11 07/25/23 12:11 07/25/23 12:11
Last Documented Vital Signs
Temp Pulse Resp BP Pulse Ox
98.3 F 92 23 114/72 100
07/25/23 12:11 07/25/23 13:45 07/25/23 15:15 07/25/23 15:00 07/25/23 15:15
<Ortega Waite, DO - Last Filed: 07/25/23 16:52>
Orders/Labs/Results
Orders:
Orders
07/25/23 12:21
Electrocardiogram (*1) Urgent
Reason for Study: Chest Pain
EKG- Treatment ONCE
07/25/23 12:22
Complete Blood Count/With Diff Urgent
Comprehensive Metabolic Panel Urgent
Prothrombin Time Urgent
Troponin I Urgent
07/25/23 14:53
CT Head W/o Iv Contrast Urgent
Comment:
Reason For Exam: altered mental status
Straight cath- Treatment ONCE
07/25/23 15:15
Urinalysis Reflex To Culture Urgent
Date Specimen was Collected: 07/25/23
Time Specimen was Collected: 14:56
Abnormal Lab Results
07/25/23
12:22
RBC 3.93 L 10^6/uL
(4.70-6.10)
Hgb 10.4 L g/dL
(13.0-18.0)
Hct 33.7 L %
(39.0-52.0)
MCH 26.5 L pg
(27.0-31.0)
MCHC 30.9 L g/dL
(33.0-37.0)
RDW 17.2 H %
(11.5-14.5)
Absolute Lymphs (auto) 0.7 L 10^3/uL
(1.2-3.4)
Absolute Monos (auto) 0.7 H 10^3/uL
(0.1-0.6)
Lymphocytes % 12.8 L %
(20.5-51.1)
Monocytes % 12.5 H %
(1.7-9.3)
Glucose 123 H mg/dl
(70-99)
Total Protein 5.4 L g/dl
(6.3-8.2)
Albumin 3.1 L g/dl
(3.5-5.0)
07/25/23 12:22
07/25/23 12:22
Vital Signs
Initial and Last Documented VS:
Initial Vital Signs
Temp Pulse Resp BP Pulse Ox
98.3 F 80 24 105/69 100
07/25/23 12:11 07/25/23 12:11 07/25/23 12:11 07/25/23 12:11 07/25/23 12:11
Last Documented Vital Signs
Temp Pulse Resp BP Pulse Ox
98.3 F 92 23 114/72 100
07/25/23 12:11 07/25/23 13:45 07/25/23 15:15 07/25/23 15:00 07/25/23 15:15
<Ortega Waite, DO - Last Filed: 07/25/23 16:52>
*Critical Care Note
Total Time (30-74mins, 75-104mins- exclusive of procedures): Not Applicable
<Ortega Waite, DO - Last Filed: 07/25/23 16:52>
Update Note
Update Note:
4:50 PM care of patient was transitioned pending reevaluation after fluids, CT head and urinalysis. CT head negative and urinalysis negative. Patient states he still feels weak and fatigued. He appears confused and unsure how he got here.
Patient appears too weak and fatigued to perform his own activities of daily living. Will admit for physical therapy and case management evaluation for possible placement
ED Attending Note
<Venkat Toribio, DO - Last Filed: 07/25/23 14:51>
-
Portions of this chart may have been created with voice recognition software.� Occasional wrong word or��sound alike� substitutions may have occurred due to the inherent limitations of voice recognition software.
Discharge Plan
Departure
Patient Disposition: Admit
Date of Disposition: 07/25/23
Time of Disposition: 16:52
Admit to: Med/Surg
Presentation/result/management discussed w/ accepting MD/DO: Hospitalist
Discharge Problem:
Weakness
Prescriptions:
No Action
ferrous sulfate [FeroSul] 325 MG tablet
325 mg PO HS
metformin 1,000 MG tablet
2,000 mg PO BID@0800,1700
gabapentin 100 MG capsule
200 mg PO DAILYPRN PRN (Reason: pain)
cyanocobalamin (vitamin B-12) 100 mcg Tablet
100 mcg PO DAILY
citalopram 40 mg Tablet
40 mg PO DAILY
pravastatin 40 mg Tablet
40 mg PO HS
cholecalciferol (vitamin D3) 25 mcg (1,000 unit) Tablet
25 mcg PO DAILY
venlafaxine 150 mg Capsule,Extended Release 24hr
150 mg PO DAILY
Eliquis 5 mg Tablet
5 mg PO BID Qty: 60 0RF
omeprazole 40 mg capsule,delayed release(DR/EC)
40 mg PO DAILY
alum-mag hydroxide-simeth 200-200-20 mg/5 mL Suspension
10 ml PO QID PRN (Reason: indigestion)
fludrocortisone 0.1 mg tablet
0.1 mg PO BID
sennosides-docusate sodium [Stool Softener-Stimulant Laxat] 8.6-50 mg Tablet
1 tab PO BID 15 Days Qty: 30 0RF
polyethylene glycol 3350 [Miralax] 17 gram Powder In Packet
17 g PO BID Qty: 0 0RF
Referrals:
UNKNOWN - PT DOES,NOT KNOW [Family Provider] -
Interventions
Interventions:
*Risk Screen - Suicide Last Done: 07/25/23 12:11
*General Assessment Last Done: 07/25/23 12:11
*Neglect/Abuse Screening Last Done: 07/25/23 12:11
ED- Fall Risk Assessment Last Done: 07/25/23 12:11
*ED COVID-19 Vaccine History Last Done: 07/25/23 12:11
ED- Neurological Assessment Last Done: 07/25/23 12:16
ED- Cardiac Assessment Last Done: 07/25/23 12:11
ED Swallowing Screen Last Done: 07/25/23 12:16
[2023-07-25 15:27] LABS: Urine Albumin Negative (Neg - Trace); Urine Bilirubin Negative (Negative); Urine Character Clear (Clear); Urine Color Yellow; Urine Glucose Negative (Negative); Urine Ketone Negative (Negative); Urine Leukocyte Negative (Negative); Urine Nitrite Negative (Negative); Urine Occult Blood Negative (Negative); Urine Specific Gravity 1.015 (<1.030); Urine Urobilinogen Negative (Neg - 1+)
--- NOTE | 2023-07-25 17:18 | HPS.HSE ---
Family Physician
-
Family Physician: NOT KNOW UNKNOWN - PT DOES
Chief Complaint
-
dizziness, sensation of throat closing
History of Present Illness
The patient is an 78-year-old male with PMH significant for gastric bypass, choledocholithiasis requiring ERCP with Axios stent at [facility], history of GI bleeding, hypertension, hyperlipidemia, CVA, diabetes mellitus, depression anxiety, cognitive
deficits, superficial thrombosis right cephalic vein on Eliquis, atrial fibrillation, orthostatic hypotension, presented to the hospital with abdominal pain and constipation who presents to ED due to weakness and dizziness. He was discharged from
[facility] 07/21 due to constipation/abdominal pain. He denies focal neuro deficits, but states he could not walk due to feeling of dizziness and generalized weakness, no PEREZ, no LOC, no syncope, no CP, no SOB, no vomiting, no diarrhea, no abdominal
pain. He does not recall taking his medications today. He has a dry throat, and says it feels like he cannot swallow. He is able to swallow water at bedside and also was eating yesterday without aspiration and without difficulty. He is asking for
Effexor, and cannot recall the last time he took this medication. He has groin irritation and no dysuria.
ED txt:
O2 NC 2L (for comfort, O2 is 97-100%)
Ativan 0.5 mg IV once
Medical History
Past Medical History
Past Medical History: Reports Other (gastric bypass, choledocholithiasiswith LAMS stent, history of GI bleeding from stent irritation/erosion, GERD, HFpEF, paroxysmal atrial fibrillation, cognitive impairment, CVA, hyperlipidemia, chronic right foot
drop, orthostatic hypotension, hypertension, diabetes, anxiety/depression, superficial )
Additional Past Medical History:
Endoscopy 05/18/2023-normal esophagus, gastric bypass with normal-sized pouch intact with Axios stent accessing the excluded stomach staple line.� GJ anastomosis characterized by healthy-appearing mucosa.� Nonbleeding jejunal diverticulum.
Colonoscopy 05/20/2023-diminutive polyp in the transverse colon, 4 mm polyp in the splenic flexure, large lipoma ascending colon, diverticulosis, prominent ileocecal valve
Past Surgical History: Reports Other (Cholecystectomy, Orthopedic and Other (Gastric bypass) , EDGE procedure done at [facility] in April 2023 for choledocholithiasis and had Axios stent placement at that time.)
Social History
Tobacco: Non-smoker
Alcohol: None
Drug: None
Personal:
Living: With Family
Family History
Family History: Not pertinent
Allergies / Home Medications
Allergies reflects when Allergies were last updated in [facility].
Home Medications with original date entered in [facility]
Allergy/Medication List:
Allergies
Allergy/AdvReac Type Severity Reaction Status Date / Time
meperidine HCl [From Demerol] Allergy gets hyper Verified 07/25/23 12:16
ondansetron [From Zofran] Allergy N/V Verified 07/25/23 12:16
Home Medications
ferrous sulfate 325 mg (65 mg iron) tablet (FeroSul) 325 mg PO HS Supplement 04/28/19
metformin 1,000 mg tablet 2,000 mg PO BID@0800,1700 Diabetes 04/28/19
gabapentin 100 mg capsule 200 mg PO DAILYPRN PRN pain 10/30/21
cholecalciferol (vitamin D3) 25 mcg (1,000 unit) tablet 25 mcg PO DAILY Supplement 01/06/22
citalopram 40 mg tablet 40 mg PO DAILY Mental Health/Anxiety 01/06/22
cyanocobalamin (vitamin B-12) 100 mcg tablet 100 mcg PO DAILY Supplement 01/06/22
pravastatin 40 mg tablet 40 mg PO HS High cholesterol 01/06/22
venlafaxine 150 mg capsule,extended release 24 hr 150 mg PO DAILY Mental Health/Anxiety 07/06/22
apixaban 5 mg tablet (Eliquis) 5 mg PO BID Blood Clot Prevention/Tx #60 tabs 05/21/23
aluminum-mag hydroxide-simethicone 200 mg-200 mg-20 mg/5 mL oral susp 10 ml PO QID PRN indigestion 07/19/23
fludrocortisone 0.1 mg tablet 0.1 mg PO BID Orthostatic hypotension 07/19/23
omeprazole 40 mg capsule,delayed release 40 mg PO DAILY Gastrointestinal Issue 07/19/23
polyethylene glycol 3350 17 gram oral powder packet (Miralax) 17 g PO BID #0 ea 07/22/23
sennosides 8.6 mg-docusate sodium 50 mg tablet (Stool Softener-Stimulant Laxative) 1 tab PO BID 15 days #30 tabs 07/22/23
Review of Systems
-
A 12 point ROS was completed and negative except as noted: Yes
Physical Exam
Vital Signs
Vital Signs
Temp Pulse Resp BP Pulse Ox
98.3 F 92 21 121/83 100
07/25/23 12:11 07/25/23 13:45 07/25/23 16:47 07/25/23 16:47 07/25/23 16:47
Physical Exam
General: Well Developed, Well Nourished and Other (anxious)
HEENT: NormoCephalic, Anicteric and Other (dry mucous membranes )
Respiratory: Clear
Cardiac: S1/S2 and Irregular Rhythm
GI: Soft, Non Tender and Non Distended
Musculoskeletal: No Clubbing, No Cyanosis and No Edema
Skin: Warm, Dry and Other (scrotal red, yeast groin b/l)
Neuro: AO x 3 and No Motor Deficits
Psych: Calm
Laboratory Results
-
07/25/23 12:22
07/25/23 12:22
Laboratory Results
PT 14.4 Sec (11.4-14.6) 07/25/23 12:22
INR 1.14 07/25/23 12:22
Total Bilirubin 0.4 mg/dl (0.2-1.3) 07/25/23 12:22
AST 20 U/L (17-59) 07/25/23 12:22
ALT 15 U/L (0-50) 07/25/23 12:22
Alkaline Phosphatase 67 U/L (38-126) 07/25/23 12:22
Troponin I < 0.012 ng/ml 07/25/23 12:22
Data Reviewed
-
CT Scan: Report Reviewed by me (CT head NAD)
Medical Tests (Nuc Med, Echo, EKG etc): Image Personally Visualized and interpreted and Report Reviewed by me (AFIB no changes from prior V-rate 78)
Impression/Plan
-
IMPRESSION:The patient is an 78-year-old male with PMH significant for gastric bypass, choledocholithiasis requiring ERCP with Axios stent at [facility], history of GI bleeding, hypertension, hyperlipidemia, CVA, diabetes mellitus, depression
anxiety, cognitive deficits, superficial thrombosis right cephalic vein on Eliquis, atrial fibrillation, orthostatic hypotension, presented to the hospital with abdominal pain and constipation who presents to ED due to weakness and dizziness. He was
discharged from [facility] 07/21 due to constipation/abdominal pain. He denies focal neuro deficits, but states he could not walk due to feeling of dizziness and generalized weakness, no PEREZ, no LOC, no syncope, no CP, no SOB, no vomiting, no
diarrhea, no abdominal pain. He does not recall taking his medications today. He has a dry throat, and says it feels like he cannot swallow. He is able to swallow water at bedside and also was eating yesterday without aspiration and without
difficulty. He is asking for Effexor, and cannot recall the last time he took this medication. He has groin irritation and no dysuria.
ED txt:
O2 NC 2L (for comfort, O2 is 97-100%)
Ativan 0.5 mg IV once
#Dizziness, generalized weakness, unknown etiology - CT head NAD, EKG unchanged from prior, trop normal, labs essentially unremarkable, no evidence for infectious etiology. History of orthostatic hypotension, as possible etiology. He also has
significant amount of anxiety.
-will monitor on telemetry
-O2 to wean to off (oxygenating well)
-resume home Effexor and Celexa, consider Psych consultation
-continue Florinef
-Ativan given x 1 in ED and will hold off on more for now and monitor symptoms
-PT/OT evaluation
-gentle IVF for 1 liter then stop and monitor
#Groin george
-Desenex BID topical and monitor
# History of GI bleed-was seen at [facility] and transferred to [facility]
History of choledocholithiasis requiring EDGE procedure which Axios stent done at [facility] in April 2023
Endoscopy and colonoscopy May without any evidence of bleeding
# Diabetes-with neuropathy
-On gabapentin (prn) and metformin 2000 BID as OP
-Metformin 1000 BID ordered here now
# History of gastric bypass surgery/GERD-PPI to be continued
# Chronic heart failure with preserved ejection fraction
Echo 05/17/2023-normal LV size, wall thickness and systolic function.� Normal RV size and function.� Mild MR.� Mild to moderate TR.� Mildly dilated aortic root.
Not on goal-directed therapy likely secondary to chronic orthostatic hypotension
# Coronary artery disease with a stent
-statin
-on Eliquis, no antiplatelet
# Paroxysmal atrial fibrillation, rate controlled
-Eliquis
-monitor on tele
# Chronic orthostatic hypotension-on Florinef
-check orthostatics, cont Florinef
# History of CVA- statin
-Eliquis
# Hyperlipidemia/atherosclerosis
- statin
# Hypertension
-not on antihypertensive
-monitor
# Anxiety and depression
-Celexa, venlafaxine
-s/p Ativan x 1 in ED 0.5 mg
# Superficial thrombosis of the right cephalic vein
-Eliquis
# History of iron deficiency anemia
# Nephrolithiasis
# Sleep apnea
-unclear if on CPAP
# Ex-smoker
# DVT prophylaxis-Eliquis
# Full code
[2023-07-25] MEDS: ATIVAN 0.5 MG IV (17:59)
[2023-07-25] MEDS: NSS 1000 IV (20:47)
[2023-07-25] MEDS: EFFEXOR XR 150 MG PO (20:47)
[2023-07-25] MEDS: DESENEX/MITRAZOL/ZEASORB 1 APPLIC TOPICAL (20:48)
[2023-07-25] MEDS: ELIQUIS 5 MG PO (20:48)
[2023-07-25] MEDS: SENOKOT-S 1 TABLET PO (20:48)
[2023-07-25] MEDS: FLORINEF 0.100000000000000006 MG PO (20:48)
[2023-07-25] MEDS: PRAVACHOL 40 MG PO (21:09)
[2023-07-25] MEDS: FEOSOL 325 MG PO (21:09)
[2023-07-25 21:17] LABS: Glucose - Point of Care 106 mg/dl (70-99)
[2023-07-26] VITALS (7 sets, daily range): BP systolic 101–139; BP diastolic 69–88; PULSE 73–101; O2SAT 99; BMI 28.1
[2023-07-26] MEDS: TYLENOL 650 MG PO (03:59)
[2023-07-26 07:16] LABS: Hematocrit 31.3 % (39.0-52.0); Hemoglobin 9.7 g/dL (13.0-18.0); Mean Corpuscular Volume 87.2 fL (80.0-94.0); Mean Platelet Volume 10.3 fL (7.4-10.4); Platelet Count 108 10^3/uL (130-400); Red Blood Cell Count 3.59 10^6/uL (4.70-6.10); Red Cell Dist. Width 17.3 % (11.5-14.5)
[2023-07-26 07:44] LABS: Glucose - Point of Care 110 mg/dl (70-99)
[2023-07-26 07:48] LABS: Blood Urea Nitrogen 17 mg/dl (9-20); Calcium 8.8 mg/dl (8.4-10.2); Carbon Dioxide 25 mmol/L (22-30); Chloride 105 mmol/L (98-107); Estimated Creatinine Clearance 76 ml/min; Glucose 104 mg/dl (70-99); Potassium 3.7 mmol/L (3.5-5.1); Sodium 136 mmol/L (135-145); eGFR > 60.00
--- NOTE | 2023-07-26 07:56 | W.PN.HOSP.TC ---
Today's Communication/Plan
-
PT OT eval. Discharge planning in progress
Assessment / Plan
Assessment / Plan
Physical Exam
General: Well Developed, Well Nourished and Other (anxious)
HEENT: NormoCephalic, Anicteric and Other (dry mucous membranes )
Respiratory: Clear
Cardiac: S1/S2 and Irregular Rhythm
GI: Soft, Non Tender and Non Distended
Musculoskeletal: No Clubbing, No Cyanosis and No Edema
Skin: Warm, Dry and Other (scrotal red, yeast groin b/l)
Neuro: AO x 3 and No Motor Deficits
Psych: Calm
A/P:
#Dizziness, generalized weakness--> likely related to not taking his medications over the last several days.
-PT OT eval today
-Discussed with daughter at length and she will discuss with nurses aide at home to ensure patient continues to take his medications as prescribed.
-Will have telehealth case manager for discharge disposition as well
Prior to today:
- CT head NAD, EKG unchanged from prior, trop normal, labs essentially unremarkable, no evidence for infectious etiology. History of orthostatic hypotension, as possible etiology. He also has significant amount of anxiety.
-will monitor on telemetry
-O2 to wean to off (oxygenating well)
-resume home Effexor and Celexa
-continue Florinef
-Ativan given x 1 in ED and will hold off on more for now and monitor symptoms
-PT/OT evaluation
-gentle IVF for 1 liter then stop and monitor
#Groin george
-Desenex BID topical and monitor
# History of GI bleed-was seen at [facility] and transferred to [place]
History of choledocholithiasis requiring EDGE procedure which Axios stent done at [place] in April 2023
Endoscopy and colonoscopy May without any evidence of bleeding
# Diabetes-with neuropathy
-On gabapentin (prn) and metformin 2000 BID as OP
-Metformin 1000 BID ordered here now
# History of gastric bypass surgery/GERD-PPI to be continued
# Chronic heart failure with preserved ejection fraction
Echo 05/17/2023-normal LV size, wall thickness and systolic function.� Normal RV size and function.� Mild MR.� Mild to moderate TR.� Mildly dilated aortic root.
Not on goal-directed therapy likely secondary to chronic orthostatic hypotension
# Coronary artery disease with a stent
-statin
-on Eliquis, no antiplatelet
# Paroxysmal atrial fibrillation, rate controlled
-Eliquis
-monitor on tele
# Chronic orthostatic hypotension-on Florinef
-check orthostatics, cont Florinef
# History of CVA- statin
-Eliquis
# Hyperlipidemia/atherosclerosis
- statin
# Hypertension
-not on antihypertensive
-monitor
# Anxiety and depression
-Celexa, venlafaxine
-s/p Ativan x 1 in ED 0.5 mg
# Superficial thrombosis of the right cephalic vein
-Eliquis
# History of iron deficiency anemia
# Nephrolithiasis
# Sleep apnea
-unclear if on CPAP
# Ex-smoker
# DVT prophylaxis-Eliquis
# Full code
Anticipated Discharge: Within 24 hours
Subjective/Interval History
-
Date of Service: July 26, 2023
Patient still has some dizziness but improved. Patient admits that he has not been taking his medication lately. No chest pain or shortness of breath. No abdominal pain. Afebrile
Objective Data
-
Labs:
Laboratory Results
07/26/23
06:39
WBC 4.0 L
Hgb 9.7 L
Hct 31.3 L
Plt Count 108 L
Sodium 136
Potassium 3.7
Chloride 105
Carbon Dioxide 25
BUN 17
Creatinine 0.8
Glucose 104 H
Calcium 8.8
Vital Signs:
Vital Signs
Temp Pulse Resp BP Pulse Ox
98.0 F 84 18 101/69 99
07/26/23 03:48 07/26/23 03:48 07/26/23 03:48 07/26/23 03:48 07/26/23 03:48
I&O
07/25/23 07/26/23 07/27/23
06:59 06:59 06:59
Intake Total 1180 / 1180
Balance 1180 / 1180
[2023-07-26] MEDS: ELIQUIS 5 MG PO ×2 (08:50→20:46)
[2023-07-26] MEDS: CELEXA 40 MG PO (08:50)
[2023-07-26] MEDS: GLUCOPHAGE 1000 MG PO ×2 (08:50→17:56)
[2023-07-26] MEDS: SENOKOT-S 1 TABLET PO ×2 (08:50→20:47)
[2023-07-26] MEDS: FLORINEF 0.100000000000000006 MG PO ×2 (08:51→20:47)
[2023-07-26] MEDS: VITAMIN B-12 100 MCG PO (08:51)
[2023-07-26] MEDS: EFFEXOR XR 150 MG PO (08:51)
[2023-07-26] MEDS: PROTONIX 40 MG PO (08:51)
[2023-07-26] MEDS: DESENEX/MITRAZOL/ZEASORB 1 APPLIC TOPICAL ×2 (08:52→22:52)
[2023-07-26 11:49] LABS: Glucose - Point of Care 136 mg/dl (70-99)
--- NOTE | 2023-07-26 16:47 | CM ---
Alert awake forgetful patient who lives with his Kaylan who lives in a 1 story home with 1 step to enter and bed and bathroom on first floor. He is assisted in all activities of daily living.He was offered VN he declined need.He has walker at
home. He is on oxygen but not at home.
[facility]
PCP DR Renner
PLAN Offer VN at [facility] again, Watch for oxygen needs
--- NOTE | 2023-07-26 17:08 | PTCARENOTE ---
patient ambulated in hallway with PT, heart rate up to 160, patient reporting dyspnea. assisted back to bed. BP 131/88, heart rate down to 100's. Dr Talamantes made aware. ecg ordered and completed. plan of care on going
[2023-07-26 17:23] LABS: Glucose - Point of Care 93 mg/dl (70-99)
[2023-07-26] MEDS: MIRALAX 17 GRAMS PO ×2 (17:56→20:47)
[2023-07-26 21:36] LABS: Glucose - Point of Care 92 mg/dl (70-99)
[2023-07-26] MEDS: FEOSOL 325 MG PO (22:50)
[2023-07-26] MEDS: PRAVACHOL 40 MG PO (22:50)
[2023-07-27] VITALS (9 sets, daily range): BP systolic 104–136; BP diastolic 66–91; PULSE 65–94; O2SAT 100
[2023-07-27 06:57] LABS: % Basophils 0.2 % (0-2); % Eosinophils 0.7 % (0-6); % Immature Granulocytes 0.2 % (0-0.5); % Lymphocytes 13.3 % (20.5-51.1); % Monocytes 13.5 % (1.7-9.3); % Neutrophils 72.1 % (42.2-75.2); Absolute Lymphocytes 0.6 10^3/uL (1.2-3.4); Absolute Monocytes 0.6 10^3/uL (0.1-0.6); Absolute Neutrophils 3.3 10^3/uL (1.4-6.5); Hematocrit 32.2 % (39.0-52.0); Hemoglobin 9.7 g/dL (13.0-18.0); Mean Corp Hgb Conc. 30.1 g/dL (33.0-37.0); Mean Corpuscular Hgb 26.3 pg (27.0-31.0); Mean Corpuscular Volume 87.3 fL (80.0-94.0); Mean Platelet Volume 10.6 fL (7.4-10.4); Nucleated Red Blood Cells % 0 % (-); Platelet Count 114 10^3/uL (130-400); Red Blood Cell Count 3.69 10^6/uL (4.70-6.10); Red Cell Dist. Width 17.2 % (11.5-14.5); White Blood Cell Count 4.6 10^3/uL (4.8-10.8)
[2023-07-27 07:17] LABS: Blood Urea Nitrogen 19 mg/dl (9-20); Carbon Dioxide 24 mmol/L (22-30); Chloride 109 mmol/L (98-107); Estimated Creatinine Clearance 87 ml/min; Glucose 98 mg/dl (70-99); Potassium 3.6 mmol/L (3.5-5.1); Sodium 136 mmol/L (135-145); eGFR > 60.00
[2023-07-27 07:19] LABS: Glucose - Point of Care 118 mg/dl (70-99)
[2023-07-27] MEDS: EFFEXOR XR 150 MG PO (08:28)
[2023-07-27] MEDS: DESENEX/MITRAZOL/ZEASORB 1 APPLIC TOPICAL ×2 (08:28→19:43)
[2023-07-27] MEDS: FLORINEF 0.100000000000000006 MG PO ×2 (08:28→19:35)
[2023-07-27] MEDS: VITAMIN B-12 100 MCG PO (08:28)
[2023-07-27] MEDS: ELIQUIS 5 MG PO ×2 (08:29→19:35)
[2023-07-27] MEDS: SENOKOT-S 1 TABLET PO ×2 (08:29→19:35)
[2023-07-27] MEDS: MIRALAX 17 GRAMS PO ×2 (08:29→19:37)
[2023-07-27] MEDS: PROTONIX 40 MG PO (08:29)
[2023-07-27] MEDS: GLUCOPHAGE 1000 MG PO ×2 (08:29→17:35)
[2023-07-27] MEDS: CELEXA 40 MG PO (08:29)
--- NOTE | 2023-07-27 08:58 | W.PN.HOSP.TC ---
Today's Communication/Plan
-
Meclizine, PT eval, neuro eval.
Assessment / Plan
Assessment / Plan
Physical Exam
General: Well Developed, Well Nourished and Other (anxious)
HEENT: NormoCephalic, Anicteric and Other (dry mucous membranes )
Respiratory: Clear
Cardiac: S1/S2 and Irregular Rhythm
GI: Soft, Non Tender and Non Distended
Musculoskeletal: No Clubbing, No Cyanosis and No Edema
Skin: Warm, Dry and Other (scrotal red, yeast groin b/l)
Neuro: AO x 3 and No Motor Deficits
Psych: Calm
A/P:
#Dizziness:
-Likely vertigo- BPPV
-Patient does not feel comfortable going home today
-Neurology consulted ([facility] neurology today)
-Reviewed CT of the head a couple days ago and unremarkable
-Start meclizine as needed, low-dose
-Continue PT evaluation
-Updated daughter today (who also points out celexa should be down to 20 mg/d)
#Generalized weakness--> likely related to not taking his medications over the last several days.
-PT OT eval
-Discussed with daughter at length and she will discuss with nurses aide at home to ensure patient continues to take his medications as prescribed.
-Will have rifle case repairer for discharge disposition as well
Prior to today:
- CT head NAD, EKG unchanged from prior, trop normal, labs essentially unremarkable, no evidence for infectious etiology. History of orthostatic hypotension, as possible etiology. He also has significant amount of anxiety.
-will monitor on telemetry
-O2 to wean to off (oxygenating well)
-resume home Effexor and Celexa
-continue Florinef
-Ativan given x 1 in ED and will hold off on more for now and monitor symptoms
-PT/OT evaluation
-gentle IVF for 1 liter then stop and monitor
#Groin george
-Desenex BID topical and monitor
# History of GI bleed-was seen at [facility] and transferred to [place]
History of choledocholithiasis requiring EDGE procedure which Axios stent done at [place] in April 2023
Endoscopy and colonoscopy May without any evidence of bleeding
# Diabetes-with neuropathy
-On gabapentin (prn) and metformin 2000 BID as OP
-Metformin 1000 BID ordered here now
# History of gastric bypass surgery/GERD-PPI to be continued
# Chronic heart failure with preserved ejection fraction
Echo 05/17/2023-normal LV size, wall thickness and systolic function.� Normal RV size and function.� Mild MR.� Mild to moderate TR.� Mildly dilated aortic root.
Not on goal-directed therapy likely secondary to chronic orthostatic hypotension
# Coronary artery disease with a stent
-statin
-on Eliquis, no antiplatelet
# Paroxysmal atrial fibrillation, rate controlled
-Eliquis
-monitor on tele
# Chronic orthostatic hypotension-on Florinef
-check orthostatics, cont Florinef
# History of CVA- statin
-Eliquis
# Hyperlipidemia/atherosclerosis
- statin
# Hypertension
-not on antihypertensive
-monitor
# Anxiety and depression
-Celexa, venlafaxine
-s/p Ativan x 1 in ED 0.5 mg
# Superficial thrombosis of the right cephalic vein
-Eliquis
# History of iron deficiency anemia
# Nephrolithiasis
# Sleep apnea
-unclear if on CPAP
# Ex-smoker
# DVT prophylaxis-Eliquis
# Full code
Anticipated Discharge: Within 24 hours
Subjective/Interval History
-
Date of Service: July 27, 2023
Patient c/o dizziness and worse by movement associated with nausea. No focal weakness. Afebrile
Objective Data
-
Labs:
Laboratory Results
07/27/23
06:36
WBC 4.6 L
Hgb 9.7 L
Hct 32.2 L
Plt Count 114 L
Sodium 136
Potassium 3.6
Chloride 109 H
Carbon Dioxide 24
BUN 19
Creatinine 0.7
Glucose 98
Calcium 9.0
Vital Signs:
Vital Signs
Temp Pulse Resp BP Pulse Ox
98.8 F 66 16 115/70 99
07/27/23 07:46 07/27/23 07:46 07/27/23 07:46 07/27/23 07:46 07/27/23 07:46
I&O
07/26/23 07/27/23 07/28/23
06:59 06:59 06:59
Intake Total 1180 / 1180 1200 / 1200
Output Total 775 / 775
Balance 1180 / 1180 425 / 425
Review of Systems
-
All other systems: Reviewed and negative
--- NOTE | 2023-07-27 09:42 | CM ---
Addendum entered by Keira Orozco RN 07/27/23 10:32:
DC cancelled Daughter called to notified.
Original Note:
MD entered order for discharge.
[facility] set up for patient .
Spoke with daughter Clair [phone] She said she agrees with his dc today with [facility].
His fancy stitcher Tiffany will be picking him up and drive him home.
RN indicated dc will be ready at 11 am .Dgt notified and will tell healthcare advisory services manager to be here at 11 am.
PLAN Home with [facility]
--- NOTE | 2023-07-27 11:23 | CON.NEURO ---
Addendum entered and electronically signed by Cosme Gabriel MD 07/28/23 08:09:
Addendum to the history portion of the consultation: The patient began experiencing worsening of a multiyear process of dizziness taking place with body position change. He contacted his hospitalist to place this consult. The patient reports that
the intensity of the dizziness worsened. He only experiences this problem with body position changes. No other associated symptoms. No other modifying factors.
Original Note:
Neuro Assessment/Plan
Assessment
IMPRESSIONS/RECOMMENDATIONS:
Abrupt Recurrence of sense of dizziness and generalized weakness.
Differential diagnosis includes orthostatic hypotension as the major etiology for the patient's symptomatology
Plan
Follow orthostatic blood pressures
Provide abdominal binder
Increase fluids, decrease caffeine intake if possible
Initiate midodrine in addition to the patient's usual fludrocortisone. Hold midodrine if systolic blood pressure greater than 150
Check blood work for additional metabolic abnormalities
Will continue to follow as outpatient. Thank you.
Consultation
Order
Date of Consultation: 07/27/23
Requesting Provider: Hospitalist
Reason for Consult: Generalized weakness
Subjective/Objective
Subjective Data
Date of Service: July 27, 2023
10/2021
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
some left leg weakness on neurologic examination during a stroke alert. Patient says he did have lumbar spinal stenosis surgery in his earlier years around his 30s.
Neurologic examination remarkable for some left hip flexion and knee extension weakness. No cranial nerve deficits or upper extremity strength deficits patient has a chronic right plantar flexion foot drop weakness due to the previous ischemic
stroke of the damien.
MRI brain is ruled out an acute ischemic stroke.
Best assessment is that this is probably a peripheral nerve disorder most likely upper lumbar roots given hip flexion and extension weakness, femoral nerve palsy is also possible but no reason why he would have a femoral nerve palsy as no procedures
to the area recently and no trauma. His history of spinal stenosis in the past probably predisposes him to a radicular nerve type problem in the lower extremity.
Conservative measures will be best as this will likely improve over course of a few weeks, does not seem to be significant back or leg or hip pain and no worrisome bowel or bladder dysfunction symptoms to indicate a serious spine cord disorder.
-Continue patient's home aspirin 81 mg daily and can resume his home pravastatin 40 mg daily, no indication here for DAPT therapy has no concern for TIA
-Outpatient neurology follow-up
-Physical therapy mobilization
Started this AM,
Objective Data
Vital Signs
Temp Pulse Resp BP Pulse Ox
35.8 C L 85 18 116/71 100
07/27/23 11:01 07/27/23 11:01 07/27/23 11:01 07/27/23 11:01 07/27/23 11:01
Lab Results
07/27/23 06:36
07/27/23 06:36
PT 14.4 Sec (11.4-14.6) 07/25/23 12:22
INR 1.14 07/25/23 12:22
Sodium 136 mmol/L (135-145) 07/27/23 06:36
Potassium 3.6 mmol/L (3.5-5.1) 07/27/23 06:36
BUN 19 mg/dl (9-20) 07/27/23 06:36
Glucose 98 mg/dl (70-99) 07/27/23 06:36
Calcium 9.0 mg/dl (8.4-10.2) 07/27/23 06:36
Patient Allergies
meperidine HCl [From Demerol] Allergy (Verified 07/25/23 12:16)
gets hyper
ondansetron [From Zofran] Allergy (Verified 07/25/23 12:16)
N/V
Review of Systems
-
History Source: Patient
All other systems: Reviewed and negative
EENT: Negative Decreased Vision or Swallowing Difficulty
Respiratory: Negative Trouble Breathing
Cardiac: Negative Chest Pain
Abdomen/GI: Negative Incontinence of Stool
Genitourinary: Negative Incontinence
Musculoskeletal: Negative Back Pain or Neck Pain
Neuro: Dizzy (Not currently); Negative Headache
Physical Exam
-
General: No Apparent Distress and Appears Stated Age
Eyes: OU Absent Papilledema, Round OU, [place] Conjunctivae and No Ptosis
HEENT: Anicteric and Moist Mucous Membranes
Neck: Full Range of Motion
Respiratory: No Dyspnea
Cardiac: No JVD
GI: Non-distended
Skin: Unremarkable
Extremities: No Clubbing, No Cyanosis and No Edema
Psych: Intact Judgement/Insight
Extended Neurological Exam
Mood & Affect: Mood Unremarkable and Affect Unremarkable
Attention Span & Concentration: Awake, Alert, Interactive and No Difficulty with 2 Step Request
Memory: Unremarkable
Tremor: Hand Tremor Absent and Head Tremor Absent
Involuntary Movement: None
Speech: Quantity Unremarkable; Negative Quality Unremarkable (Minimally thick)
Cranial Nerve II: Left Eye: Pupillary Reactivity Unremarkable, Pupillary Size Unremarkable and Visual Wolff Intact
Cranial Nerve II: Right Eye: Pupillary Reactivity Unremarkable, Pupillary Size Unremarkable and Visual Wolff Intact
Cranial Nerves III, IV, : Extraocular Movement: Extraocular Movement Full in all Directions
Cranial Nerve V: Facial Sensation: Intact to Light Touch
Cranial Nerve VII: Facial Symmetry: Normal Facial Symmetry
Cranial Nerve VIII: Hearing: Unremarkable Hearing to Normal Conversational Volume
Cranial Nerves IX, X: Palate Movement: Palate Elevation Symmetric
Cranial Nerve XI: Shoulder Shrug: Unremarkable
Cranial Nerve XII: Tongue Protusion: Midline
Muscle Strength, Overall: Otherwise Intact and Other (weakness of right foot plantarflexion 3/5, left hip flexion knee extension weakness 4+/5)
Muscle Bulk & Tone: Bulk Unremarkable and Tone Unremarkable
Pronator Drift: No Drift in Upper Extremities
Deep Tendon Reflexes: Trace Throughout
Touch Sensation: Unremarkable
Coordination: Vecpev-gobp-[id number] Testing Unremarkable
Babinski Sign: Absent Bilaterally
Data Reviewed
-
Labs: Report Reviewed
Reviewed with: Physician, Nurse Practioner and Patient
Old Records: Summarized
Medications
-
Active Medications
Generic Name Dose Route Start Last Admin
Trade Name Freq PRN Reason Stop Dose Admin
Acetaminophen 650 mg 07/25/23 19:29 07/26/23 03:59
Acetaminophen 325 Mg Tablet PO 08/22/23 19:28 650 mg
Q4HPRN PRN Administration
mild pain/PEREZ/temp> 100.4F
Apixaban 5 mg 07/25/23 20:00 07/27/23 08:29
Apixaban (Eliquis) 5 Mg Tablet PO 08/22/23 19:59 5 mg
BID RAVEN Administration
Citalopram Hydrobromide 40 mg 07/26/23 08:00 07/27/23 08:29
Citalopram 40 Mg Tablet PO 08/23/23 07:59 40 mg
DAILY RAVEN Administration
Cyanocobalamin 100 mcg 07/26/23 08:00 07/27/23 08:28
Cyanocobalamin (Vitamin B-12) 100 Mcg Tablet PO 08/23/23 07:59 100 mcg
DAILY RAVEN Administration
Dextrose 12.5 grams 07/26/23 10:03
Dextrose 50% (0.5 Grams/Ml) 50 Ml Syringe IV 08/23/23 10:02
[id number] PRN
hypoglycemia
Protocol
Ferrous Sulfate 325 mg 07/25/23 22:00 07/26/23 22:50
Ferrous Sulfate 325 Mg Tablet PO 08/22/23 21:59 325 mg
HS RAVEN Administration
Fludrocortisone Acetate 0.1 mg 07/25/23 20:00 07/27/23 08:28
Fludrocortisone Acetate 0.1 Mg Tablet PO 08/22/23 19:59 0.1 mg
BID RAVEN Administration
Glucagon 1 mg 07/26/23 10:03
Glucagon 1 Mg Vial IM 08/23/23 10:02
PRN PRN
hypoglycemia
Protocol
Insulin Aspart 0 units 07/26/23 11:30 07/27/23 08:24
Insulin Aspart Low Resistance 300 Units/3 Ml Pen.Injctr SC 08/23/23 11:29 Not Given
AC RAVEN
Protocol
Meclizine HCl 12.5 mg 07/27/23 10:26
Meclizine 12.5 Mg Tablet PO 08/24/23 10:25
Q8HPRN PRN
dizziness
Metformin HCl 1,000 mg 07/26/23 08:00 07/27/23 08:29
Metformin 1000 Mg Regular Release Tablet PO 08/23/23 07:59 1,000 mg
BID@0800,1700 RAVEN Administration
Miconazole Nitrate 0 applic 07/25/23 20:00 07/27/23 08:28
Miconazole Powder Bottle TOPICAL 08/22/23 19:59 1 applic
BID RAVEN Administration
Pantoprazole Sodium 40 mg 07/26/23 08:00 07/27/23 08:29
Pantoprazole 40 Mg Delayed Release Tablet PO 08/23/23 07:59 40 mg
DAILY RAVEN Administration
Polyethylene Glycol 17 grams 07/26/23 13:07 07/27/23 08:29
Polyethylene Glycol Powder 17 Grams Packet PO 08/23/23 13:06 17 grams
BID RAVEN Administration
Pravastatin Sodium 40 mg 07/25/23 22:00 07/26/23 22:50
Pravastatin 40 Mg Tablet PO 08/22/23 21:59 40 mg
HS RAVEN Administration
Senna/Docusate Sodium 1 tablet 07/25/23 20:00 07/27/23 08:29
Docusate W/Senna (Chastity-Colace) Tablet PO 08/22/23 19:59 1 tablet
BID RAVEN Administration
Venlafaxine HCl 150 mg 07/25/23 19:29 07/27/23 08:28
Venlafaxine 150 Mg Extended Release Capsule PO 08/22/23 19:28 150 mg
DAILY RAVEN Administration
Home Medications
Medication Instructions Recorded
ferrous sulfate 325 mg (65 mg 325 mg PO HS Supplement 04/28/19
iron) tablet (FeroSul)
metformin 1,000 mg tablet 2,000 mg PO BID@0800,1700 Diabetes 04/28/19
gabapentin 100 mg capsule 200 mg PO DAILYPRN PRN pain 10/30/21
cholecalciferol (vitamin D3) 25 25 mcg PO DAILY Supplement 01/06/22
mcg (1,000 unit) tablet
citalopram 40 mg tablet 40 mg PO DAILY Mental 01/06/22
Health/Anxiety
cyanocobalamin (vitamin B-12) 100 100 mcg PO DAILY Supplement 01/06/22
mcg tablet
pravastatin 40 mg tablet 40 mg PO HS High cholesterol 01/06/22
venlafaxine 150 mg 150 mg PO DAILY Mental 07/06/22
capsule,extended release 24 hr Health/Anxiety
apixaban 5 mg tablet (Eliquis) 5 mg PO BID Blood Clot 05/21/23
Prevention/Tx #60 tabs
aluminum-mag hydroxide-simethicone 10 ml PO QID PRN indigestion 07/19/23
200 mg-200 mg-20 mg/5 mL oral susp
fludrocortisone 0.1 mg tablet 0.1 mg PO BID Orthostatic 07/19/23
hypotension
omeprazole 40 mg capsule,delayed 40 mg PO DAILY Gastrointestinal 07/19/23
release Issue
sennosides 8.6 mg-docusate sodium 1 tab PO BID 15 days #30 tabs 07/22/23
50 mg tablet (Stool
Softener-Stimulant Laxative)
polyethylene glycol 3350 17 gram 17 g PO BID Constipation 07/26/23
oral powder packet (Miralax)
Past History
Past History
ED Past Medical History: Arrthythmia (Atrial fibrillation), CVA, GERD, HTN, Hypercholesterolemia, NIDDM, HI and Other (GI bleed, GI stent, Orthostatic hypotension, Iron deficiency anemia)
ED Past Surgical History: Cholecystectomy, Orthopedic (Bilateral hip replacements) and Other (Gastric bypass)
Patient has exhibited threatening behavior?: No
PSI?: No
Social History
Tobacco: Former smoker
Alcohol: None
Drug: None
Personal:
Living: with family
Employment: Not employed
Family History
Family History: Other (Reviewed and Noncontributory)
[2023-07-27 11:54] LABS: Glucose - Point of Care 102 mg/dl (70-99)
[2023-07-27] MEDS: ProAmatine 5 MG PO ×2 (12:19→17:35)
[2023-07-27] MEDS: ANTIVERT 12.5 MG PO (12:20)
[2023-07-27 13:38] LABS: Erythrocyte Sed Rate 13 mm/hour (0-20)
[2023-07-27 14:35] LABS: TSH Reflex To Free T4 0.72 uIU/ml (0.47-4.68)
[2023-07-27 14:39] LABS: Ferritin 9.9 ng/ml (17.9-464.0)
--- NOTE | 2023-07-27 15:08 | VNURNOTE ---
Home Health Liaison spoke with patient's daughter Clair by phone at 1500 to discuss [facility] nurse/therapy, visits, schedule and homebound status. Clair is agreeable and understands that visits at home will be 2-3 x per week to assess and teach
medical management.
Clair is aware that [facility] will contact them for start of care in 1-2 days after discharge from .
[facility] referral completed in [facility].
[2023-07-27 15:10] LABS: Folate 6.6 ng/ml (2.76-20); Vitamin B12 586 pg/ml (239-931)
[2023-07-27 16:48] LABS: Glucose - Point of Care 95 mg/dl (70-99)
[2023-07-27] MEDS: TYLENOL 650 MG PO (19:48)
[2023-07-27 21:10] LABS: Glucose - Point of Care 108 mg/dl (70-99)
[2023-07-27] MEDS: PRAVACHOL 40 MG PO (21:38)
[2023-07-27] MEDS: FEOSOL 325 MG PO (21:38)
[2023-07-28] VITALS (9 sets, daily range): BP systolic 87–127; BP diastolic 52–85; PULSE 64–108; O2SAT 98; BMI 28.7
--- NOTE | 2023-07-28 03:32 | DOWNTIME ---
There was a [employer] Client Client Resource Specialist Downtime on 07/28/2023 from 0100 to 07/28/2023 at 0322. Downtime documentation of patient's care, including medication administrations, has been reconciled in the electronic record per guidelines. Refer to the
patient's paper chart under the miscellaneous tab to see printed paper medication records and downtime forms.
[2023-07-28 06:28] LABS: % Basophils 0.2 % (0-2); % Eosinophils 0.7 % (0-6); % Immature Granulocytes 0.2 % (0-0.5); % Lymphocytes 15.6 % (20.5-51.1); % Monocytes 13.7 % (1.7-9.3); % Neutrophils 69.6 % (42.2-75.2); Absolute Lymphocytes 0.7 10^3/uL (1.2-3.4); Absolute Monocytes 0.6 10^3/uL (0.1-0.6); Absolute Neutrophils 2.9 10^3/uL (1.4-6.5); Hematocrit 30.4 % (39.0-52.0); Hemoglobin 9.7 g/dL (13.0-18.0); Mean Corp Hgb Conc. 31.9 g/dL (33.0-37.0); Mean Corpuscular Hgb 28.1 pg (27.0-31.0); Mean Corpuscular Volume 88.1 fL (80.0-94.0); Mean Platelet Volume 10.5 fL (7.4-10.4); Nucleated Red Blood Cells % 0 % (-); Platelet Count 116 10^3/uL (130-400); Red Blood Cell Count 3.45 10^6/uL (4.70-6.10); Red Cell Dist. Width 17.2 % (11.5-14.5); White Blood Cell Count 4.2 10^3/uL (4.8-10.8)
[2023-07-28 06:43] LABS: Blood Urea Nitrogen 17 mg/dl (9-20); Calcium 8.9 mg/dl (8.4-10.2); Carbon Dioxide 26 mmol/L (22-30); Chloride 106 mmol/L (98-107); Estimated Creatinine Clearance 76 ml/min; Glucose 84 mg/dl (70-99); Potassium 4.2 mmol/L (3.5-5.1); Sodium 135 mmol/L (135-145); eGFR > 60.00
[2023-07-28 07:16] LABS: Glucose - Point of Care 95 mg/dl (70-99)
--- NOTE | 2023-07-28 07:26 | W.PN.HOSP.TC ---
Today's Communication/Plan
-
Continue current management. Discharge planning in progress
Assessment / Plan
Assessment / Plan
Physical Exam
General: Well Developed, Well Nourished and Other (anxious)
HEENT: NormoCephalic, Anicteric and Other (dry mucous membranes )
Respiratory: Clear
Cardiac: S1/S2 and Irregular Rhythm
GI: Soft, Non Tender and Non Distended
Musculoskeletal: No Clubbing, No Cyanosis and No Edema
Skin: Warm, Dry and Other (scrotal red, yeast groin b/l)
Neuro: AO x 3 and No Motor Deficits
Psych: Calm
A/P:
#Dizziness:
-Likely orthostatic hypotension
-?vertigo component
-Started on midodrine since 07/26
-Neurology consulted
-Reviewed CT of the head a couple days ago and unremarkable
-Cont meclizine as needed, low-dose but if not needed rather d/c to avoid side effects
-Continue PT evaluation
-Updated daughter yesterday--> will call later today with updated.
-Plan to discharge either later today or tomorrow depending on his clinical course.
#Generalized weakness--> likely related to not taking his medications over the last several days.
-PT OT eval
-Discussed with daughter at length and she will discuss with nurses aide at home to ensure patient continues to take his medications as prescribed.
-Will have ed case manager for discharge disposition as well
Prior to today:
- CT head NAD, EKG unchanged from prior, trop normal, labs essentially unremarkable, no evidence for infectious etiology. History of orthostatic hypotension, as possible etiology. He also has significant amount of anxiety.
-will monitor on telemetry
-O2 to wean to off (oxygenating well)
-resume home Effexor and Celexa
-continue Florinef
-Ativan given x 1 in ED and will hold off on more for now and monitor symptoms
-PT/OT evaluation
-gentle IVF for 1 liter then stop and monitor
#Groin george
-Desenex BID topical and monitor
# History of GI bleed-was seen at [facility] [address] and transferred to [place]
History of choledocholithiasis requiring EDGE procedure which Axios stent done at [place] in April 2023
Endoscopy and colonoscopy May without any evidence of bleeding
# Diabetes-with neuropathy
-On gabapentin (prn) and metformin 2000 BID as OP
-Metformin 1000 BID ordered here now
# History of gastric bypass surgery/GERD-PPI to be continued
# Chronic heart failure with preserved ejection fraction
Echo 05/17/2023-normal LV size, wall thickness and systolic function.� Normal RV size and function.� Mild MR.� Mild to moderate TR.� Mildly dilated aortic root.
Not on goal-directed therapy likely secondary to chronic orthostatic hypotension
# Coronary artery disease with a stent
-statin
-on Eliquis, no antiplatelet
# Paroxysmal atrial fibrillation, rate controlled
-Eliquis
-monitor on tele
# Chronic orthostatic hypotension-on Florinef
-check orthostatics, cont Florinef. Added midodrine
# History of CVA- statin
-Eliquis
# Hyperlipidemia/atherosclerosis
- statin
# Hypertension
-not on antihypertensive
-monitor
# Anxiety and depression
-Celexa, venlafaxine
-s/p Ativan x 1 in ED 0.5 mg
# Superficial thrombosis of the right cephalic vein
-Eliquis
# History of iron deficiency anemia
# Nephrolithiasis
# Sleep apnea
-unclear if on CPAP
# Ex-smoker
# DVT prophylaxis-Eliquis
# Full code
Anticipated Discharge: Within 24 hours
Subjective/Interval History
-
Date of Service: July 28, 2023
Patient feels better today. Less dizziness. Still orthostatic.
Objective Data
-
Labs:
Laboratory Results
07/28/23
05:04
WBC 4.2 L
Hgb 9.7 L
Hct 30.4 L
Plt Count 116 L
Sodium 135
Potassium 4.2
Chloride 106
Carbon Dioxide 26
BUN 17
Creatinine 0.8
Glucose 84
Calcium 8.9
Vital Signs:
Vital Signs
Temp Pulse Resp BP Pulse Ox
97.9 F 79 18 125/85 99
07/28/23 03:25 07/28/23 03:25 07/28/23 03:25 07/28/23 03:25 07/28/23 03:25
I&O
07/27/23 07/28/23 07/29/23
06:59 06:59 06:59
Intake Total 1200 / 1200 420 / 420
Output Total 775 / 775 825 / 825
Balance 425 / 425 -405 / -405
Review of Systems
-
All other systems: Reviewed and negative
[2023-07-28] MEDS: GLUCOPHAGE 1000 MG PO ×2 (07:55→17:02)
[2023-07-28] MEDS: VITAMIN B-12 100 MCG PO (07:55)
[2023-07-28] MEDS: ProAmatine 5 MG PO ×3 (07:55→17:02)
[2023-07-28] MEDS: ELIQUIS 5 MG PO ×2 (07:55→20:50)
[2023-07-28] MEDS: SENOKOT-S 1 TABLET PO ×2 (07:55→20:50)
[2023-07-28] MEDS: EFFEXOR XR 150 MG PO (07:55)
[2023-07-28] MEDS: PROTONIX 40 MG PO (07:55)
[2023-07-28] MEDS: CELEXA 20 MG PO (07:55)
[2023-07-28] MEDS: MIRALAX 17 GRAMS PO ×2 (07:56→20:50)
[2023-07-28] MEDS: FLORINEF 0.100000000000000006 MG PO ×2 (07:56→20:50)
[2023-07-28] MEDS: DESENEX/MITRAZOL/ZEASORB 1 APPLIC TOPICAL ×2 (09:32→20:49)
--- NOTE | 2023-07-28 10:00 | CM ---
PT OT recommended VN
[facility] set up for patient by [facility] jackman for VN .
Spoke with daughter Clair [phone] She said she agrees with [facility] at ok.
His db2 developer Tiffany will be picking him up and drive him home.
PLAN Home with [facility]
[2023-07-28 11:31] LABS: Glucose - Point of Care 90 mg/dl (70-99)
[2023-07-28 16:40] LABS: Glucose - Point of Care 90 mg/dl (70-99)
[2023-07-28] MEDS: PRAVACHOL 40 MG PO (20:51)
[2023-07-28] MEDS: FEOSOL 325 MG PO (20:51)
[2023-07-28 21:39] LABS: Glucose - Point of Care 99 mg/dl (70-99)
[2023-07-28] MEDS: TYLENOL 650 MG PO (23:20)
[2023-07-29] VITALS (8 sets, daily range): BP systolic 116–137; BP diastolic 67–84; PULSE 59–80; O2SAT 98; BMI 28.6
[2023-07-29 06:20] LABS: Hematocrit 31.5 % (39.0-52.0); Hemoglobin 9.9 g/dL (13.0-18.0); Mean Corp Hgb Conc. 31.4 g/dL (33.0-37.0); Mean Corpuscular Hgb 27.2 pg (27.0-31.0); Mean Corpuscular Volume 86.5 fL (80.0-94.0); Mean Platelet Volume 10.3 fL (7.4-10.4); Platelet Count 122 10^3/uL (130-400); Red Blood Cell Count 3.64 10^6/uL (4.70-6.10); White Blood Cell Count 4.5 10^3/uL (4.8-10.8)
[2023-07-29 06:36] LABS: Blood Urea Nitrogen 19 mg/dl (9-20); Carbon Dioxide 24 mmol/L (22-30); Chloride 105 mmol/L (98-107); Estimated Creatinine Clearance 87 ml/min; Glucose 77 mg/dl (70-99); Potassium 3.7 mmol/L (3.5-5.1); Sodium 133 mmol/L (135-145); eGFR > 60.00
[2023-07-29] MEDS: SENOKOT-S 1 TABLET PO ×2 (08:04→20:46)
[2023-07-29] MEDS: CELEXA 20 MG PO (08:04)
[2023-07-29] MEDS: ProAmatine 5 MG PO ×3 (08:04→17:33)
[2023-07-29] MEDS: PROTONIX 40 MG PO (08:04)
[2023-07-29] MEDS: GLUCOPHAGE 1000 MG PO ×2 (08:05→17:33)
[2023-07-29] MEDS: VITAMIN B-12 100 MCG PO (08:05)
[2023-07-29] MEDS: FLORINEF 0.100000000000000006 MG PO ×2 (08:05→20:47)
[2023-07-29] MEDS: EFFEXOR XR 150 MG PO (08:05)
[2023-07-29] MEDS: ELIQUIS 5 MG PO ×2 (08:05→20:46)
[2023-07-29] MEDS: DESENEX/MITRAZOL/ZEASORB 1 APPLIC TOPICAL ×2 (08:06→20:48)
[2023-07-29] MEDS: MIRALAX 17 GRAMS PO ×2 (08:06→20:45)
--- NOTE | 2023-07-29 08:28 | W.PN.HOSP.TC ---
Today's Communication/Plan
-
Continue current management. Discharge planning in progress
Assessment / Plan
Assessment / Plan
Physical Exam
General: Well Developed, Well Nourished and Other (anxious)
HEENT: NormoCephalic, Anicteric and Other (dry mucous membranes )
Respiratory: Clear
Cardiac: S1/S2 and Irregular Rhythm
GI: Soft, Non Tender and Non Distended
Musculoskeletal: No Clubbing, No Cyanosis and No Edema
Skin: Warm, Dry and Other (scrotal red, yeast groin b/l)
Neuro: AO x 3 and No Motor Deficits
Psych: Calm
A/P:
#Dizziness:
-Likely orthostatic hypotension
-?vertigo component
-Started on midodrine since 07/26
-Neurology consulted
-Reviewed CT of the head a couple days ago and unremarkable
-Cont meclizine as needed, low-dose but if not needed rather d/c to avoid side effects
-Continue PT evaluation
-Updated daughter yesterday--> will call later today with update.
-Plan to discharge either later today or tomorrow depending on his clinical course.
#Generalized weakness--> likely related to not taking his medications over the last several days.
-PT OT eval
-Discussed with daughter at length and she will discuss with nurses aide at home to ensure patient continues to take his medications as prescribed.
-Will have wrapper caser for discharge disposition as well
Prior to today:
- CT head NAD, EKG unchanged from prior, trop normal, labs essentially unremarkable, no evidence for infectious etiology. History of orthostatic hypotension, as possible etiology. He also has significant amount of anxiety.
-will monitor on telemetry
-O2 to wean to off (oxygenating well)
-resume home Effexor and Celexa
-continue Florinef
-Ativan given x 1 in ED and will hold off on more for now and monitor symptoms
-PT/OT evaluation
-gentle IVF for 1 liter then stop and monitor
#Groin george
-Desenex BID topical and monitor
# History of GI bleed-was seen at [facility] and transferred to [place]
History of choledocholithiasis requiring EDGE procedure which Axios stent done at [place] in April 2023
Endoscopy and colonoscopy May without any evidence of bleeding
# Diabetes-with neuropathy
-On gabapentin (prn) and metformin 2000 BID as OP
-Metformin 1000 BID ordered here now
# History of gastric bypass surgery/GERD-PPI to be continued
# Chronic heart failure with preserved ejection fraction
Echo 05/17/2023-normal LV size, wall thickness and systolic function.� Normal RV size and function.� Mild MR.� Mild to moderate TR.� Mildly dilated aortic root.
Not on goal-directed therapy likely secondary to chronic orthostatic hypotension
# Coronary artery disease with a stent
-statin
-on Eliquis, no antiplatelet
# Paroxysmal atrial fibrillation, rate controlled
-Eliquis
-monitor on tele
# Chronic orthostatic hypotension-on Florinef
-check orthostatics, cont Florinef. Added midodrine
# History of CVA- statin
-Eliquis
# Hyperlipidemia/atherosclerosis
- statin
# Hypertension
-not on antihypertensive
-monitor
# Anxiety and depression
-Celexa, venlafaxine
-s/p Ativan x 1 in ED 0.5 mg
# Superficial thrombosis of the right cephalic vein
-Eliquis
# History of iron deficiency anemia
# Nephrolithiasis
# Sleep apnea
-unclear if on CPAP
# Ex-smoker
# DVT prophylaxis-Eliquis
# Full code
Anticipated Discharge: Today
Subjective/Interval History
-
Date of Service: July 29, 2023
Patient seen and examined today. Overall he feels better. Less symptomatic. Less orthostatic as well.
Objective Data
-
Labs:
Laboratory Results
07/29/23
05:13
WBC 4.5 L
Hgb 9.9 L
Hct 31.5 L
Plt Count 122 L
Sodium 133 L
Potassium 3.7
Chloride 105
Carbon Dioxide 24
BUN 19
Creatinine 0.7
Glucose 77
Calcium 9.0
Vital Signs:
Vital Signs
Temp Pulse Resp BP Pulse Ox
97.9 F 98 18 126/83 99
07/29/23 03:34 07/29/23 03:34 07/29/23 03:34 07/29/23 08:04 07/29/23 03:34
I&O
07/28/23 07/29/23 07/30/23
06:59 06:59 06:59
Intake Total 420 / 420 1080 / 1080
Output Total 825 / 825 775 / 775
Balance -405 / -405 305 / 305
[2023-07-29 08:31] LABS: Glucose - Point of Care 88 mg/dl (70-99)
[2023-07-29 12:09] LABS: Glucose - Point of Care 95 mg/dl (70-99)
--- NOTE | 2023-07-29 14:35 | CM ---
PATRICIA entered order for dc.
[facility] for [facility]
Spoke with daughter Clair [phone] She said she agrees with VN .She requested MD phone her . given message
His therapist radiation Tiffany will be picking him up and drive him home.
PLAN Home with [facility]
--- NOTE | 2023-07-29 16:25 | PTCARENOTE ---
patient for discharge today-discussed with daughter d/c plans- she doesn't feel her dad is ready for discharge. wanting a hyperbaric nurse to see her dad, patient ambulating with PT, heart rate elevated to 120's and patient reporting some dizziness.
he does not feel ready for discharge today either. Dr Talamantes made aware of patients feeling of not being ready. discharge cancelled for today. plan of care on going/.
[2023-07-29 17:11] LABS: Glucose - Point of Care 92 mg/dl (70-99)
--- NOTE | 2023-07-29 17:35 | CON.CAR ---
Addendum entered and electronically signed by Marcus Serra MD 07/29/23 17:54:
78 yo male with CAD, persistent A fib on eliquis. Admitted with dizziness. There is evidence of orthostatic hypotension. He did have some dizziness today. No syncope. Exam with irregular rhythm, no mumurs, no edema. Tele: rate controlled A fib.
Agree with florinef and midodrine. If more orthostasis in AM, will increase midodrine.
Recent echo normal.
Original Note:
Consultation
Consultation Request
Date/Time Consultation Requested: 07/29/23 165
Date/Time Consultation Performed: 07/29/23 1710
Requesting Provider: Dr. Talamantes
Performing Provider: Karina HOLMAN for Dr. Serra
Reason for Consultation: Dizziness
Medical History
-
Chief Complaint: dizziness
History of Present Illness:
78 y/o male with CAD with PCI 1999, hypertension, dyslipidemia, DM, CVA 2018, COPD, AFIB on Eliquis, HFpEF, and orthostatic hypotension who is here for evaluation of dizziness with ambulation with associated leg weakness. He is not dizzy when
laying. He has documented orthostatic hypotension, and is on Florinef at home and midodrine was added. His objective data (ortho BP's) have improved, but he still felt dizzy walking with staff today.
Past Medical History
Past Medical History: Arrhythmias (AFIB), CAD, CHF, COPD, CVA, HTN, Hypercholesterolemia, NIDDM and Other (orthostatic hypotension)
Social History
Personal:
Living: With Family
Family History
Family History: Reviewed & Not Pertinent
Allergies / Home Medications
Allergy/AdvReac Type Severity Reaction Status Date / Time
meperidine HCl [From Demerol] Allergy gets hyper Verified 07/25/23 12:16
ondansetron [From Zofran] Allergy N/V Verified 07/25/23 12:16
�Medication �Instructions �Recorded �Confirmed �Type
ferrous sulfate 325 mg (65 mg 325 mg PO HS Supplement 04/28/19 07/27/23 History
iron) tablet (FeroSul)
metformin 1,000 mg tablet 2,000 mg PO BID@0800,1700 Diabetes 04/28/19 07/27/23 History
gabapentin 100 mg capsule 200 mg PO DAILYPRN PRN pain 10/30/21 07/27/23 History
cholecalciferol (vitamin D3) 25 25 mcg PO DAILY Supplement 01/06/22 07/27/23 History
mcg (1,000 unit) tablet
citalopram 40 mg tablet 20 mg PO DAILY Mental 01/06/22 07/29/23 History
Health/Anxiety
cyanocobalamin (vitamin B-12) 100 100 mcg PO DAILY Supplement 01/06/22 07/27/23 History
mcg tablet
pravastatin 40 mg tablet 40 mg PO HS High cholesterol 01/06/22 07/27/23 History
venlafaxine 150 mg 150 mg PO DAILY Mental 07/06/22 07/27/23 History
capsule,extended release 24 hr Health/Anxiety
apixaban 5 mg tablet (Eliquis) 5 mg PO BID Blood Clot 05/21/23 07/27/23 Rx
Prevention/Tx #60 tabs
aluminum-mag hydroxide-simethicone 10 ml PO QID PRN indigestion 07/19/23 07/27/23 History
200 mg-200 mg-20 mg/5 mL oral susp
fludrocortisone 0.1 mg tablet 0.1 mg PO BID Orthostatic 07/19/23 07/27/23 History
hypotension
omeprazole 40 mg capsule,delayed 40 mg PO DAILY Gastrointestinal 07/19/23 07/27/23 History
release Issue
sennosides 8.6 mg-docusate sodium 1 tab PO BID 15 days #30 tabs 07/22/23 07/27/23 Rx
50 mg tablet (Stool
Softener-Stimulant Laxative)
polyethylene glycol 3350 17 gram 17 g PO BID Constipation 07/26/23 07/27/23 History
oral powder packet (Miralax)
midodrine 5 mg tablet 5 mg PO TID@0800,1300,1800 30 days 07/29/23 Rx
#90 tabs
Review of Systems
-
History Source: Patient
All other systems: Negative unless noted
Neurological: Dizzy
Physical Exam
Vital Signs
Temp Pulse Resp BP Pulse Ox
97.4 F 80 18 117/71 97
07/29/23 16:05 07/29/23 16:05 07/29/23 16:05 07/29/23 17:33 07/29/23 16:05
Lab Results
07/29/23 05:13
07/29/23 05:13
Troponin I < 0.012 ng/ml 07/25/23 12:22
Physical Exam
General: Well Developed, Well Nourished and No Apparent Distress
HEENT: Normocephalic and Anicteric
Respiratory: Clear and Non Labored Respirations
Cardiac: Irregular Rhythm
Skin: Warm and Dry
Neuro: AO x 3
Psych: Calm
Impression / Plan
-
Orthostatic hypotension:
-on Florinef as OP
-by numbers has improved, but he still felt dizzy today with ambulation
-midodrine added- check orthos again in AM- can titrate midodrine if needed
-will add compression socks
Hx HFpEF: chronic
-stable- does not appear volume overloaded
AFIB:
-seems to be persistent
-rate controlled off meds
-continue Eliquis for OAC
CAD:
-stable without CP
-on Eliquis/statin
Data Reviewed
-
EKG: Tracing Personally Visualized and interpreted (AFIB 94 BPM, PVC's)
Radiology: Report Reviewed by me (CXR: No active cardiopulmonary disease.)
Medical Tests (Nuc Med, Echo etc): Report Reviewed by me (echo 05/17/23: Normal left ventricular size, wall thickness and systolic function. Normal right ventricular size and function. Mild mitral regurgitation. Mild to moderate tricuspid
regurgitation (TR). Mildly Dilated aortic root at 4.1 cm.)
Labs: Labs Reviewed by me
[2023-07-29 21:17] LABS: Glucose - Point of Care 108 mg/dl (70-99)
[2023-07-29] MEDS: FEOSOL 325 MG PO (21:31)
[2023-07-29] MEDS: PRAVACHOL 40 MG PO (21:31)
[2023-07-30] VITALS (8 sets, daily range): BP systolic 100–133; BP diastolic 57–86; PULSE 54–95; O2SAT 96; BMI 28.5
[2023-07-30 06:14] LABS: Hematocrit 31.9 % (39.0-52.0); Hemoglobin 10.2 g/dL (13.0-18.0); Mean Corpuscular Hgb 27.9 pg (27.0-31.0); Mean Corpuscular Volume 87.4 fL (80.0-94.0); Mean Platelet Volume 10.2 fL (7.4-10.4); Platelet Count 123 10^3/uL (130-400); Red Blood Cell Count 3.65 10^6/uL (4.70-6.10); Red Cell Dist. Width 17.1 % (11.5-14.5); White Blood Cell Count 4.8 10^3/uL (4.8-10.8)
[2023-07-30 06:41] LABS: Blood Urea Nitrogen 18 mg/dl (9-20); Calcium 9.2 mg/dl (8.4-10.2); Carbon Dioxide 26 mmol/L (22-30); Chloride 103 mmol/L (98-107); Estimated Creatinine Clearance 87 ml/min; Glucose 79 mg/dl (70-99); Potassium 3.7 mmol/L (3.5-5.1); Sodium 136 mmol/L (135-145); eGFR > 60.00
[2023-07-30 07:42] LABS: Glucose - Point of Care 89 mg/dl (70-99)
[2023-07-30] MEDS: EFFEXOR XR 150 MG PO (08:35)
[2023-07-30] MEDS: FLORINEF 0.100000000000000006 MG PO ×2 (08:36→19:58)
[2023-07-30] MEDS: VITAMIN B-12 100 MCG PO (08:36)
[2023-07-30] MEDS: PROTONIX 40 MG PO (08:36)
[2023-07-30] MEDS: ProAmatine 5 MG PO ×3 (08:36→17:45)
[2023-07-30] MEDS: ELIQUIS 5 MG PO ×2 (08:36→19:57)
[2023-07-30] MEDS: CELEXA 20 MG PO (08:36)
[2023-07-30] MEDS: GLUCOPHAGE 1000 MG PO ×2 (08:36→17:45)
[2023-07-30] MEDS: DESENEX/MITRAZOL/ZEASORB 1 APPLIC TOPICAL ×2 (08:40→19:57)
[2023-07-30] MEDS: MIRALAX PO ×2 (08:41→19:57)
[2023-07-30] MEDS: SENOKOT-S PO ×2 (08:41→19:57)
--- NOTE | 2023-07-30 08:56 | W.PN.HOSP.TC ---
Today's Communication/Plan
-
Continue current management. Discharge planning in progress
Assessment / Plan
Assessment / Plan
Physical Exam
General: Well Developed, Well Nourished and Other (anxious)
HEENT: NormoCephalic, Anicteric and Other (dry mucous membranes )
Respiratory: Clear
Cardiac: S1/S2 and Irregular Rhythm
GI: Soft, Non Tender and Non Distended
Musculoskeletal: No Clubbing, No Cyanosis and No Edema
Skin: Warm, Dry and Other (scrotal red, yeast groin b/l)
Neuro: AO x 3 and No Motor Deficits
Psych: Calm
A/P:
#Dizziness:
-Likely orthostatic hypotension
-?vertigo component
-Started on midodrine since 07/26 and seems to be working much better
-Neurology consulted
-Reviewed CT of the head a couple days ago and unremarkable
-Cont meclizine as needed, low-dose but if not needed rather d/c to avoid side effects
-Continue PT evaluation
-Daughter requested cardiology valuation last evening and cardiology consulted.
-Cardiology agrees to continue current management and today cardiac risk for discharge and will follow-up as outpatient.
-Plan to discharge today. Updated daughter over the phone today on 07/29.
#Generalized weakness--> likely related to not taking his medications over the last several days.
-PT OT eval
-Discussed with daughter at length and she will discuss with nurses aide at home to ensure patient continues to take his medications as prescribed.
-Will have caseworker intake for discharge disposition as well
Prior to today:
- CT head NAD, EKG unchanged from prior, trop normal, labs essentially unremarkable, no evidence for infectious etiology. History of orthostatic hypotension, as possible etiology. He also has significant amount of anxiety.
-will monitor on telemetry
-O2 to wean to off (oxygenating well)
-resume home Effexor and Celexa
-continue Florinef
-Ativan given x 1 in ED and will hold off on more for now and monitor symptoms
-PT/OT evaluation
-gentle IVF for 1 liter then stop and monitor
#Groin george
-Desenex BID topical and monitor
# History of GI bleed-was seen at [facility] and transferred to [place]
History of choledocholithiasis requiring EDGE procedure which Axios stent done at [place] in April 2023
Endoscopy and colonoscopy May without any evidence of bleeding
# Diabetes-with neuropathy
-On gabapentin (prn) and metformin 2000 BID as OP
-Metformin 1000 BID ordered here now
# History of gastric bypass surgery/GERD-PPI to be continued
# Chronic heart failure with preserved ejection fraction
Echo 05/17/2023-normal LV size, wall thickness and systolic function.� Normal RV size and function.� Mild MR.� Mild to moderate TR.� Mildly dilated aortic root.
Not on goal-directed therapy likely secondary to chronic orthostatic hypotension
# Coronary artery disease with a stent
-statin
-on Eliquis, no antiplatelet
# Paroxysmal atrial fibrillation, rate controlled
-Eliquis
-monitor on tele
# Chronic orthostatic hypotension-on Florinef
-check orthostatics, cont Florinef. Added midodrine
# History of CVA- statin
-Eliquis
# Hyperlipidemia/atherosclerosis
- statin
# Hypertension
-not on antihypertensive
-monitor
# Anxiety and depression
-Celexa, venlafaxine
-s/p Ativan x 1 in ED 0.5 mg
# Superficial thrombosis of the right cephalic vein
-Eliquis
# History of iron deficiency anemia
# Nephrolithiasis
# Sleep apnea
-unclear if on CPAP
# Ex-smoker
# DVT prophylaxis-Eliquis
# Full code
Anticipated Discharge: Today
Subjective/Interval History
-
Date of Service: July 30, 2023
Patient feels better overall today. No dizziness. Patient seen and examined along with cardiology this morning. No chest pain or shortness of breath.
Objective Data
-
Labs:
Laboratory Results
07/30/23
04:55
WBC 4.8
Hgb 10.2 L
Hct 31.9 L
Plt Count 123 L
Sodium 136
Potassium 3.7
Chloride 103
Carbon Dioxide 26
BUN 18
Creatinine 0.7
Glucose 79
Calcium 9.2
Vital Signs:
Vital Signs
Temp Pulse Resp BP Pulse Ox
98.1 F 54 18 106/65 95
07/30/23 07:00 07/30/23 03:32 07/30/23 03:32 07/30/23 08:36 07/30/23 07:00
I&O
07/29/23 07/30/23 07/31/23
06:59 06:59 06:59
Intake Total 1080 / 1080 1320 / 1320
Output Total 775 / 775 950 / 950
Balance 305 / 305 370 / 370
Review of Systems
-
All other systems: Reviewed and negative
--- NOTE | 2023-07-30 10:03 | W.PN.CD ---
Today's Communication / Plan
-
cont florinef 0.1mg bid
cont midodrine 5mg tid
compression socks
please call back with additional questions
we will arrange for follow up with us
Impression / Plan
-
Orthostatic hypotension: improved
-cont florinef 0.1mg bid
-cont midodrine 5mg tid
-compression socks
AFIB:
-seems to be persistent
-rate controlled off meds
-continue Eliquis 5mg bid for OAC
CAD:
-stable without CP
-on Eliquis/statin
Physical Exam
Vital Signs/Labs
Vital Signs
Temp Pulse Resp BP Pulse Ox
98.1 F 54 18 106/65 95
07/30/23 07:00 07/30/23 03:32 07/30/23 03:32 07/30/23 08:36 07/30/23 07:00
07/29/23 07/30/23 07/31/23
06:59 06:59 06:59
Actual Weight 90.265 kg 90.01 kg
07/30/23 04:55
07/30/23 04:55
PT 14.4 Sec (11.4-14.6) 07/25/23 12:22
INR 1.14 07/25/23 12:22
Physical Exam
Constitutional: No acute distress and Comfortable
EENT: Moist mucous membranes
Cardiovascular: Pedal edema is absent, JVD pressure is normal, Systolic murmur absent and Rhythm/rate is irregular
Respiratory: Respiratory effort normal, Lungs clear to auscul. and Wheeze Absent
GI: Soft and Distention absent
Neuro/Psych: AO x 3
Data Reviewed
-
Date of Service: July 30, 2023
EKG: Other (Tele: A fib 80s)
--- NOTE | 2023-07-30 11:29 | CM ---
entered order for dc.
[facility] set up for patient by Lisa liaison for VN .
Spoke with daughter Clair [phone] She said she agrees with VN .
His lead caregiver Tiffany will be picking him up and drive him home.
Remains observation status.
PLAN Home with [facility]
[2023-07-30 11:41] LABS: Glucose - Point of Care 111 mg/dl (70-99)
--- NOTE | 2023-07-30 13:30 | PTCARENOTE ---
patient ambulated to the bathroom and then patient sat in the chair, heart rate did go up to 120's when ambulating. he said he felt dizzy after sitting up for 30 minutes and wanted to get back in bed. he doesn't want to go home. Dr Talamantes aware and
discharge cancelled
--- NOTE | 2023-07-30 17:14 | W.PN.UPDATE ---
Update Note
Progress Note Update
A fib with RVR with activity. Also with history of orthostatic hypotension. Discussed with hospitalist. Will add digoxin.
[2023-07-30 17:17] LABS: Glucose - Point of Care 105 mg/dl (70-99)
[2023-07-30] MEDS: LANOXIN 125 MCG PO (17:45)
[2023-07-30] MEDS: FEOSOL 325 MG PO (19:58)
[2023-07-30] MEDS: PRAVACHOL 40 MG PO (19:58)
[2023-07-30 21:57] LABS: Glucose - Point of Care 88 mg/dl (70-99)
[2023-07-30] MEDS: TYLENOL 650 MG PO (22:10)
[2023-07-31] VITALS (7 sets, daily range): BP systolic 90–141; BP diastolic 60–89; PULSE 76–103
[2023-07-31 07:25] LABS: % Basophils 0.4 % (0-2); % Eosinophils 0.4 % (0-6); % Immature Granulocytes 0.4 % (0-0.5); % Lymphocytes 13.1 % (20.5-51.1); % Monocytes 13.9 % (1.7-9.3); % Neutrophils 71.8 % (42.2-75.2); Absolute Lymphocytes 0.6 10^3/uL (1.2-3.4); Absolute Monocytes 0.6 10^3/uL (0.1-0.6); Absolute Neutrophils 3.2 10^3/uL (1.4-6.5); Hematocrit 31.7 % (39.0-52.0); Hemoglobin 10.2 g/dL (13.0-18.0); Mean Corp Hgb Conc. 32.2 g/dL (33.0-37.0); Mean Corpuscular Hgb 27.7 pg (27.0-31.0); Mean Corpuscular Volume 86.1 fL (80.0-94.0); Mean Platelet Volume 10.5 fL (7.4-10.4); Nucleated Red Blood Cells % 0 % (-); Platelet Count 124 10^3/uL (130-400); Red Blood Cell Count 3.68 10^6/uL (4.70-6.10); Red Cell Dist. Width 17.2 % (11.5-14.5); White Blood Cell Count 4.5 10^3/uL (4.8-10.8)
[2023-07-31 07:41] LABS: Glucose - Point of Care 86 mg/dl (70-99)
[2023-07-31 07:54] LABS: Blood Urea Nitrogen 17 mg/dl (9-20); Calcium 9.1 mg/dl (8.4-10.2); Carbon Dioxide 28 mmol/L (22-30); Chloride 102 mmol/L (98-107); Estimated Creatinine Clearance 87 ml/min; Glucose 74 mg/dl (70-99); Potassium 3.9 mmol/L (3.5-5.1); Sodium 136 mmol/L (135-145); eGFR > 60.00
--- NOTE | 2023-07-31 08:15 | W.PN.HOSP.TC ---
Today's Communication/Plan
-
Continue current management.
Assessment / Plan
Assessment / Plan
Physical Exam
General: Well Developed, Well Nourished and Other (anxious)
HEENT: NormoCephalic, Anicteric and Other (dry mucous membranes )
Respiratory: Clear
Cardiac: S1/S2 and Irregular Rhythm
GI: Soft, Non Tender and Non Distended
Musculoskeletal: No Clubbing, No Cyanosis and No Edema
Skin: Warm, Dry and Other (scrotal red, yeast groin b/l)
Neuro: AO x 3 and No Motor Deficits
Psych: Calm
A/P:
#Dizziness:
-Likely orthostatic hypotension
-?vertigo component
-Started on midodrine since 07/26 and seems to be working much better
-Neurology consulted
-Reviewed CT of the head a couple days ago and unremarkable
-Cont meclizine as needed, low-dose but if not needed rather d/c to avoid side effects
-Continue PT evaluation
-Daughter requested cardiology valuation last evening and cardiology consulted.
-Cardiology agrees to continue current management and today cardiac risk for discharge and will follow-up as outpatient.
-Discharge on 07/30 was aborted due to patient being in A-fib mild fast ventricular rate when working with PT yesterday. Cardiology recommended started on digoxin.
-Today patient with significant anxiety or nausea. Gave antiemetic x 1 and had psychiatry evaluate him today-->psych recommended benzodiazepines as needed. Needs to watch for any side effects.
-Updated daughter over the phone today 07/30. Updated her on dig and benzo. Daughter also is concerned about his back so we will get an x-ray of the back (he has an appointment for his back on Wednesday but that needs to be revisited)
#Generalized weakness--> likely related to not taking his medications over the last several days.
-PT OT eval
-Discussed with daughter at length and she will discuss with nurses aide at home to ensure patient continues to take his medications as prescribed.
-Will have medical case manager for discharge disposition as well
Prior to today:
- CT head NAD, EKG unchanged from prior, trop normal, labs essentially unremarkable, no evidence for infectious etiology. History of orthostatic hypotension, as possible etiology. He also has significant amount of anxiety.
-will monitor on telemetry
-O2 to wean to off (oxygenating well)
-resume home Effexor and Celexa
-continue Florinef
-Ativan given x 1 in ED and will hold off on more for now and monitor symptoms
-PT/OT evaluation
-gentle IVF for 1 liter then stop and monitor
#Groin george
-Desenex BID topical and monitor
# History of GI bleed-was seen at [facility] and transferred to [place]
History of choledocholithiasis requiring EDGE procedure which Axios stent done at [place] in April 2023
Endoscopy and colonoscopy May without any evidence of bleeding
# Diabetes-with neuropathy
-On gabapentin (prn) and metformin 2000 BID as OP
-Metformin 1000 BID ordered here now
# History of gastric bypass surgery/GERD-PPI to be continued
# Chronic heart failure with preserved ejection fraction
Echo 05/17/2023-normal LV size, wall thickness and systolic function.� Normal RV size and function.� Mild MR.� Mild to moderate TR.� Mildly dilated aortic root.
Not on goal-directed therapy likely secondary to chronic orthostatic hypotension
# Coronary artery disease with a stent
-statin
-on Eliquis, no antiplatelet
# Paroxysmal atrial fibrillation, rate controlled
-Eliquis
-monitor on tele
# Chronic orthostatic hypotension-on Florinef
-check orthostatics, cont Florinef. Added midodrine
# History of CVA- statin
-Eliquis
# Hyperlipidemia/atherosclerosis
- statin
# Hypertension
-not on antihypertensive
-monitor
# Anxiety and depression
-Celexa, venlafaxine
-s/p Ativan x 1 in ED 0.5 mg
# Superficial thrombosis of the right cephalic vein
-Eliquis
# History of iron deficiency anemia
# Nephrolithiasis
# Sleep apnea
-unclear if on CPAP
# Ex-smoker
# DVT prophylaxis-Eliquis
# Full code
Total time spent on today's encounter was 52 minutes. More than 50% of the time spent in counseling and coordination.
Anticipated Discharge: > 48 hours
Subjective/Interval History
-
Date of Service: July 31, 2023
Patient with nausea and significant anxiety today. Also complains of diarrhea. He has been on bowel regimen. Denies chest pain or shortness of breath.
Objective Data
-
Labs:
Laboratory Results
07/31/23
06:19
WBC 4.5 L
Hgb 10.2 L
Hct 31.7 L
Plt Count 124 L
Sodium 136
Potassium 3.9
Chloride 102
Carbon Dioxide 28
BUN 17
Creatinine 0.7
Glucose 74
Calcium 9.1
Vital Signs:
Vital Signs
Temp Pulse Resp BP Pulse Ox
98.0 F 77 18 141/89 96
07/31/23 03:00 07/31/23 03:00 07/31/23 03:00 07/31/23 03:00 07/31/23 03:00
I&O
07/30/23 07/31/23 08/01/23
06:59 06:59 06:59
Intake Total 1320 / 1320 1080 / 1080
Output Total 950 / 950 500 / 500
Balance 370 / 370 580 / 580
[2023-07-31] MEDS: GLUCOPHAGE 1000 MG PO ×2 (09:21→18:23)
[2023-07-31] MEDS: ProAmatine 5 MG PO ×3 (09:22→18:23)
[2023-07-31] MEDS: FLORINEF 0.100000000000000006 MG PO ×2 (09:22→20:33)
[2023-07-31] MEDS: PROTONIX 40 MG PO (09:22)
[2023-07-31] MEDS: CELEXA 20 MG PO (09:26)
[2023-07-31] MEDS: EFFEXOR XR 150 MG PO (09:26)
[2023-07-31] MEDS: ELIQUIS 5 MG PO ×2 (09:27→20:33)
[2023-07-31] MEDS: VITAMIN B-12 100 MCG PO (09:27)
[2023-07-31] MEDS: MIRALAX PO ×2 (09:28→20:34)
[2023-07-31] MEDS: SENOKOT-S PO ×2 (09:28→20:34)
[2023-07-31] MEDS: DESENEX/MITRAZOL/ZEASORB 1 APPLIC TOPICAL ×2 (09:33→20:33)
--- NOTE | 2023-07-31 09:36 | CM ---
Addendum entered by Aleta Kendall 07/31/23 10:18:
Per Attending, discharge is cancelled until further notice; daughter, Clair notified.
per daughter's request, sent a tiger text to Attending to call her with an update.
Original Note:
Plan: discharge to home with home health from [facility]
Transport: When ready for discharge, Nursing should contact patient's daughter, Clair # [phone]. Daughter will arrange transport home
[2023-07-31] MEDS: ANTIVERT 12.5 MG PO (11:11)
[2023-07-31] MEDS: LANOXIN 125 MCG PO (12:07)
[2023-07-31] MEDS: ZOFRAN 4 MG IV (12:07)
[2023-07-31 12:14] LABS: Glucose - Point of Care 97 mg/dl (70-99)
--- NOTE | 2023-07-31 12:30 | W.PN.UPDATE ---
Update Note
Progress Note Update
Psychiatric evaluation dictated.
Patient reports severe anxiety, not sure as to why, perhaps related to being an inpatient in the hospital.He is treated for depression through his FP, Presently on Effexor XR 150 od and Celexa 20 od. He is rather non committal as to whether it is
helping but he denies significant dysphoria, helplessness, hopelessness or suicidal thoughts. Denies seeing a psychiatrist.
Even though the record reports cognitive loss he has only a mild deficit in immediate recall, remember 3 numbers out of 5.For now I would use Ativan 0.5 mg q 8h prn for the anxiety. Discussed with patient including side effects.
Will f/U in hospital.
[2023-07-31] MEDS: ATIVAN 0.5 MG PO (13:01)
[2023-07-31 16:33] LABS: Glucose - Point of Care 79 mg/dl (70-99)
[2023-07-31] MEDS: PRAVACHOL 40 MG PO (20:33)
[2023-07-31] MEDS: TYLENOL 650 MG PO (20:33)
[2023-07-31] MEDS: FEOSOL 325 MG PO (20:33)
[2023-07-31 21:08] LABS: Glucose - Point of Care 90 mg/dl (70-99)
[2023-08-01] VITALS (7 sets, daily range): BP systolic 85–128; BP diastolic 52–79; PULSE 73–109
[2023-08-01 07:33] LABS: Glucose - Point of Care 83 mg/dl (70-99)
[2023-08-01 08:20] LABS: Hematocrit 30.9 % (39.0-52.0); Hemoglobin 9.8 g/dL (13.0-18.0); Mean Corp Hgb Conc. 31.7 g/dL (33.0-37.0); Mean Corpuscular Hgb 27.6 pg (27.0-31.0); Mean Platelet Volume 10.6 fL (7.4-10.4); Platelet Count 125 10^3/uL (130-400); Red Blood Cell Count 3.55 10^6/uL (4.70-6.10); Red Cell Dist. Width 17.2 % (11.5-14.5); White Blood Cell Count 4.4 10^3/uL (4.8-10.8)
[2023-08-01 08:26] LABS: Blood Urea Nitrogen 17 mg/dl (9-20); Carbon Dioxide 27 mmol/L (22-30); Chloride 102 mmol/L (98-107); Estimated Creatinine Clearance 101 ml/min; Glucose 73 mg/dl (70-99); Potassium 3.9 mmol/L (3.5-5.1); Sodium 136 mmol/L (135-145); eGFR > 60.00
--- NOTE | 2023-08-01 08:26 | W.PN.HOSP.TC ---
Today's Communication/Plan
-
Midodrine. Dig. Benzo's. PT OT reeval.
Assessment / Plan
Assessment / Plan
Physical Exam
General: Well Developed, Well Nourished and Other (anxious)
HEENT: NormoCephalic, Anicteric and Other (dry mucous membranes )
Respiratory: Clear
Cardiac: S1/S2 and Irregular Rhythm
GI: Soft, Non Tender and Non Distended
Musculoskeletal: No Clubbing, No Cyanosis and No Edema
Skin: Warm, Dry and Other (scrotal red, yeast groin b/l)
Neuro: AO x 3 and No Motor Deficits
Psych: Calm
A/P:
#Dizziness:
-Likely orthostatic hypotension
-?vertigo component
-Started on midodrine since 07/26 and seems to be working somewhat
-Neurology consulted
-Reviewed CT of the head a couple days ago and unremarkable
- d/c meclizine to avoid side effects
-Continue PT evaluation
-Cardiology consult appreciated.
-Discharge on 07/30 was aborted due to patient being in A-fib mild fast ventricular rate when working with PT.
- Cardiology recommended started on digoxin.
-Patient with significant anxiety and nausea. Gave antiemetic x 1 and had psychiatry evaluate him yesterday-->psych recommended benzodiazepines as needed. Needs to watch for any side effects.
-Updated daughter over the phone on 07/30. Updated her on dig and benzo. Daughter also is concerned about his back so we will get an x-ray of the back (he has an appointment for his back on Wednesday but that needs to be revisited).
-Xray back with DJD changes.
#Generalized weakness--> multifactorial related to not taking his medications over the last several days, anxiety, a fib, orthostatic, and now hospitalization.
-PT OT eval
-Discussed with daughter at length and she will discuss with nurses aide at home to ensure patient continues to take his medications as prescribed.
-Will have geriatric case manager for discharge disposition as well
- CT head NAD, EKG unchanged from prior, trop normal, labs essentially unremarkable, no evidence for infectious etiology. History of orthostatic hypotension, as possible etiology. He also has significant amount of anxiety.
-will monitor on telemetry
-O2 to wean to off (oxygenating well)
-resume home Effexor and Celexa
-continue Florinef
-Ativan given x 1 in ED and will hold off on more for now and monitor symptoms
-PT/OT evaluation
-gentle IVF for 1 liter then stop and monitor
#Diarrhea
-check stool studies if persisting
#Constipation
-Required aggressive bowel regimen recommended by GI due to recent hospitalization for abd pain due to constipation.
#Groin george
-Desenex BID topical and monitor
# History of GI bleed-was seen at [facility] and transferred to [place]
History of choledocholithiasis requiring EDGE procedure which Axios stent done at [place] in April 2023
Endoscopy and colonoscopy May without any evidence of bleeding
# Diabetes-with neuropathy
-On gabapentin (prn) and metformin 2000 BID as OP
-Metformin 1000 BID ordered here now
# History of gastric bypass surgery/GERD-PPI to be continued
# Chronic heart failure with preserved ejection fraction
Echo 05/17/2023-normal LV size, wall thickness and systolic function.� Normal RV size and function.� Mild MR.� Mild to moderate TR.� Mildly dilated aortic root.
Not on goal-directed therapy likely secondary to chronic orthostatic hypotension
# Coronary artery disease with a stent
-statin
-on Eliquis, no antiplatelet
# Paroxysmal atrial fibrillation, rate controlled
-Eliquis
-monitor on tele
# Chronic orthostatic hypotension-on Florinef
-check orthostatics, cont Florinef. Added midodrine
# History of CVA- statin
-Eliquis
# Hyperlipidemia/atherosclerosis
- statin
# Hypertension
-not on antihypertensive
-monitor
# Anxiety and depression
-Celexa, venlafaxine
-s/p Ativan x 1 in ED 0.5 mg
# Superficial thrombosis of the right cephalic vein
-Eliquis
# History of iron deficiency anemia
# Nephrolithiasis
# Sleep apnea
-unclear if on CPAP
# Ex-smoker
# DVT prophylaxis-Eliquis
# Full code
Total time spent on today's encounter was 52 minutes. More than 50% of the time spent in counseling and coordination.
Anticipated Discharge: 24 - 48 hours
Subjective/Interval History
-
Date of Service: August 01, 2023
Patient does not feel well overall. Describes dizziness, also still feels anxious.
Objective Data
-
Labs:
Laboratory Results
08/01/23
06:04
WBC 4.4 L
Hgb 9.8 L
Hct 30.9 L
Plt Count 125 L
Sodium 136
Potassium 3.9
Chloride 102
Carbon Dioxide 27
BUN 17
Creatinine 0.6 L
Glucose 73
Calcium 9.0
Vital Signs:
Vital Signs
Temp Pulse Resp BP Pulse Ox
97.8 F 67 16 128/69 99
08/01/23 07:14 08/01/23 07:14 08/01/23 07:14 08/01/23 07:14 08/01/23 07:14
I&O
07/31/23 08/01/23 08/02/23
06:59 06:59 06:59
Intake Total 1080 / 1080 880 / 880
Output Total 500 / 500 945 / 945
Balance 580 / 580 -65 / -65
Review of Systems
-
All other systems: Reviewed and negative
[2023-08-01] MEDS: DESENEX/MITRAZOL/ZEASORB 1 APPLIC TOPICAL ×2 (09:00→21:08)
[2023-08-01] MEDS: PROTONIX 40 MG PO (09:03)
[2023-08-01] MEDS: ELIQUIS 5 MG PO ×2 (09:03→21:08)
[2023-08-01] MEDS: CELEXA 20 MG PO (09:03)
[2023-08-01] MEDS: ProAmatine 5 MG PO ×3 (09:03→17:40)
[2023-08-01] MEDS: EFFEXOR XR 150 MG PO (09:04)
[2023-08-01] MEDS: FLORINEF 0.100000000000000006 MG PO ×2 (09:04→21:08)
[2023-08-01] MEDS: MIRALAX PO ×2 (09:04→21:06)
[2023-08-01] MEDS: VITAMIN B-12 100 MCG PO (09:04)
[2023-08-01] MEDS: SENOKOT-S PO ×2 (09:05→21:06)
[2023-08-01] MEDS: GLUCOPHAGE 1000 MG PO ×2 (09:38→16:44)
[2023-08-01 11:56] LABS: Glucose - Point of Care 89 mg/dl (70-99)
[2023-08-01] MEDS: LANOXIN 125 MCG PO (12:26)
--- NOTE | 2023-08-01 13:47 | W.PN.UPDATE ---
Update Note
Progress Note Update
Pt seen briefly, to check whether he is still feeling anxious today. He says he is not, and that the medication yesterday (Ativan) was helpful in calming him. He denies any 'hangover ' effect today. He does c/o an 'unsettled' feeling inside-
denies this is anxiety, says its more like nausea.
I explained to him that Ativan can become habit forming so that it is best used sparingly. He seemed to understand.
[2023-08-01] MEDS: ATIVAN 0.5 MG PO (14:05)
[2023-08-01 16:39] LABS: Glucose - Point of Care 106 mg/dl (70-99)
[2023-08-01] MEDS: PRAVACHOL 40 MG PO (21:08)
[2023-08-01] MEDS: FEOSOL 325 MG PO (21:08)
[2023-08-01 21:46] LABS: Glucose - Point of Care 97 mg/dl (70-99)
[2023-08-02] VITALS (7 sets, daily range): BP systolic 101–138; BP diastolic 57–81; PULSE 66–123; O2SAT 98; BMI 28.5
[2023-08-02 07:44] LABS: Glucose - Point of Care 88 mg/dl (70-99)
[2023-08-02 07:56] LABS: Hematocrit 31.3 % (39.0-52.0); Hemoglobin 10.2 g/dL (13.0-18.0); Mean Corp Hgb Conc. 32.6 g/dL (33.0-37.0); Mean Corpuscular Hgb 29.1 pg (27.0-31.0); Mean Corpuscular Volume 89.2 fL (80.0-94.0); Mean Platelet Volume 10.3 fL (7.4-10.4); Platelet Count 113 10^3/uL (130-400); Red Blood Cell Count 3.51 10^6/uL (4.70-6.10); Red Cell Dist. Width 17.3 % (11.5-14.5)
--- NOTE | 2023-08-02 08:24 | W.PN.HOSP.TC ---
Addendum entered and electronically signed by Rafita Bourne DO 08/02/23 11:45:
Physical therapy reports patient is still orthostatic with standing, tachycardic.
Will allow another 24 hours in the hospital on higher dose of midodrine and observe. Hold off on discharge today.
Original Note:
Today's Communication/Plan
-
Ambulate with PT
Discharge
Assessment / Plan
Assessment / Plan
Gen-AAOx3, NAD
HEENT-NC, AT, anicteric, clear oral mm
Neck-supple
CV-irregular, no M, +S1/S2
Lungs-clear B/L
Abd-soft, NT, ND
Ext-no edema
Musculoskeletal-no cyanosis, clubbing
Skin-warm and dry
Neuro-grossly non-focal
Psych-calm, cooperative
Orthostatic hypotension -still with some mild symptoms. Will increase midodrine to 10 mg 3 times daily. Continue compression stockings.
-Reviewed CT of the head a couple days ago and unremarkable
- d/c meclizine to avoid side effects
-Continue PT evaluation
Paroxysmal atrial fibrillation -rates now improved on digoxin. Continue Eliquis. Cardiology signed off. Outpatient follow-up.
Generalized weakness--> multifactorial related to not taking his medications over the last several days, anxiety, a fib, orthostatic, and now hospitalization.
-PT OT eval
-Discussed with daughter at length and she will discuss with nurses aide at home to ensure patient continues to take his medications as prescribed.
-Will have casework manager for discharge disposition as well
- CT head NAD, EKG unchanged from prior, trop normal, labs essentially unremarkable, no evidence for infectious etiology. History of orthostatic hypotension, as possible etiology. He also has significant amount of anxiety.
-will monitor on telemetry
-O2 to wean to off (oxygenating well)
-resume home Effexor and Celexa
-continue Florinef
-Ativan given x 1 in ED and will hold off on more for now and monitor symptoms
-PT/OT evaluation
-gentle IVF for 1 liter then stop and monitor
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 Recommend outpatient orthopedics follow-up. Recommend PT and OT. No neurologic deficits on exam. No indication for lumbar
MRI. Discussed with patient and daughter.
Groin george
-Desenex BID topical and monitor
History of GI bleed-was seen at [facility] and transferred to [place]
History of choledocholithiasis requiring EDGE procedure which Axios stent done at [place] in April 2023
Endoscopy and colonoscopy May without any evidence of bleeding
Diabetes-with neuropathy
-On gabapentin (prn) and metformin 2000 BID as OP
-Metformin 1000 BID ordered here now
History of gastric bypass surgery/GERD-PPI to be continued
Chronic heart failure with preserved ejection fraction
Echo 05/17/2023-normal LV size, wall thickness and systolic function.� Normal RV size and function.� Mild MR.� Mild to moderate TR.� Mildly dilated aortic root.
Not on goal-directed therapy likely secondary to chronic orthostatic hypotension
Coronary artery disease with a stent
-statin
-on Eliquis, no antiplatelet
Chronic orthostatic hypotension-on Florinef
-check orthostatics, cont Florinef. Added midodrine
History of CVA- statin
-Eliquis
Hyperlipidemia/atherosclerosis
- statin
Essential Hypertension
-not on antihypertensive
-monitor
Anxiety and depression -psychiatry following.
-Celexa, venlafaxine
-s/p Ativan x 1 in ED 0.5 mg
Superficial thrombosis of the right cephalic vein
-Eliquis
History of iron deficiency anemia
Nephrolithiasis
BETSEY
-unclear if on CPAP
Ex-smoker
Full code
Dispo -medically stable for discharge. Updated daughter on the phone. She is not interested in SNF and wants to pursue home with VN. Can discharge later today after PT assessment. Outpatient follow-up.
45 minutes spent in discharge process.
Anticipated Discharge: Today
Subjective/Interval History
-
Date of Service: August 02, 2023
Patient seen and examined. Complaining of lower back pain, chronic.
Objective Data
-
Labs:
Laboratory Results
08/02/23
06:50
WBC 4.0 L
Hgb 10.2 L
Hct 31.3 L
Plt Count 113 L
Sodium Pending
Potassium Pending
Chloride Pending
Carbon Dioxide Pending
BUN Pending
Creatinine Pending
Glucose Pending
Calcium Pending
Vital Signs:
Vital Signs
Temp Pulse Resp BP Pulse Ox
98.5 F 79 18 122/71 98
08/02/23 03:50 08/02/23 03:50 08/02/23 03:50 08/02/23 03:50 08/02/23 03:50
I&O
08/01/23 08/02/23 08/03/23
06:59 06:59 06:59
Intake Total 880 / 880 960 / 960
Output Total 945 / 945 800 / 800
Balance -65 / -65 160 / 160
Review of Systems
-
History Source: Patient
All other systems: Reviewed and negative
[2023-08-02 08:25] LABS: Blood Urea Nitrogen 17 mg/dl (9-20); Calcium 8.8 mg/dl (8.4-10.2); Carbon Dioxide 26 mmol/L (22-30); Chloride 104 mmol/L (98-107); Estimated Creatinine Clearance 101 ml/min; Glucose 78 mg/dl (70-99); Potassium 3.8 mmol/L (3.5-5.1); Sodium 133 mmol/L (135-145); eGFR > 60.00
[2023-08-02] MEDS: MIRALAX PO ×2 (08:36→19:37)
[2023-08-02] MEDS: EFFEXOR XR 150 MG PO (08:37)
[2023-08-02] MEDS: ELIQUIS 5 MG PO ×2 (08:37→19:36)
[2023-08-02] MEDS: FLORINEF 0.100000000000000006 MG PO ×2 (08:38→19:36)
[2023-08-02] MEDS: CELEXA 20 MG PO (08:38)
[2023-08-02] MEDS: PROTONIX 40 MG PO (08:38)
[2023-08-02] MEDS: GLUCOPHAGE 1000 MG PO ×2 (08:38→17:54)
[2023-08-02] MEDS: SENOKOT-S PO ×2 (08:38→19:37)
[2023-08-02] MEDS: VITAMIN B-12 100 MCG PO (08:39)
[2023-08-02] MEDS: DESENEX/MITRAZOL/ZEASORB 1 APPLIC TOPICAL ×2 (08:39→19:36)
[2023-08-02] MEDS: TYLENOL 650 MG PO (08:40)
--- NOTE | 2023-08-02 08:43 | W.PN.CD ---
Addendum entered and electronically signed by Jayy Hitchcock MD 08/02/23 08:48:
We will sign off please call back with questions/concerns.
Original Note:
Today's Communication / Plan
-
Continue meds
OOB and ambulating as able
Impression / Plan
-
Orthostatic hypotension: improved
-cont florinef 0.1mg bid
-cont midodrine 5mg tid
-compression socks
AFIB:
-cont digoxin
-continue Eliquis 5mg bid for OAC
CAD:
-stable without CP
-on Eliquis/statin
Subjective: feels better less light headed no new complaints
Physical Exam
Vital Signs/Labs
Vital Signs
Temp Pulse Resp BP Pulse Ox
98.1 F 65 18 132/71 97
08/02/23 07:31 08/02/23 07:31 08/02/23 07:31 08/02/23 07:31 08/02/23 07:31
08/02/23 06:50
08/02/23 06:50
PT 14.4 Sec (11.4-14.6) 07/25/23 12:22
INR 1.14 07/25/23 12:22
Physical Exam
Constitutional: No acute distress
EENT: Anicteric
Cardiovascular: Pedal edema is absent and Rhythm/rate is irregular
Respiratory: Respiratory effort normal and Lungs clear to auscul.
GI: Soft
Neuro/Psych: Alert and Oriented
Data Reviewed
-
Date of Service: August 02, 2023
EKG: Tracing Personally Visualized and interpreted (af)
Echo: Report Reviewed by me
Labs: Labs Reviewed by me
[2023-08-02] MEDS: ProAmatine 10 MG PO ×3 (08:45→17:54)
--- NOTE | 2023-08-02 08:49 | W.DS.TRANS ---
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
-
Discharge Instructions:
Discharge Diagnosis/Procedures Orthostatic hypotension, medications
noncompliance. Constipation. Chronic diastolic
congestive heart failure. Coronary artery
disease. Paroxysmal atrial fibrillation.
History of stroke. Probably cognitive deficits.
Diet Low Cholesterol
Activity As tolerated
Driving Restrictions No driving
Bathing Restrictions None
Blood Work Please PCP to order CBC, BMP within 1 week.
Digoxin level 1-2 weeks (this lab slip sent
electronically to [facility])- obtain this prior to
taking your digoxin pill for the day!!
Other Services [facility]
Specialty Instructions Weigh Daily
Instructions:
Stand-Alone Forms:
Changes to Home Medications: No
Discharge Medications:
DC Medications w/original date entered in [facility]
ferrous sulfate 325 mg (65 mg iron) tablet (FeroSul) 325 mg PO HS Supplement 04/28/19
metformin 1,000 mg tablet 2,000 mg PO BID@0800,1700 Diabetes 04/28/19
gabapentin 100 mg capsule 200 mg PO DAILYPRN PRN pain 10/30/21
cholecalciferol (vitamin D3) 25 mcg (1,000 unit) tablet 25 mcg PO DAILY Supplement 01/06/22
citalopram 40 mg tablet 20 mg PO DAILY Mental Health/Anxiety 01/06/22
cyanocobalamin (vitamin B-12) 100 mcg tablet 100 mcg PO DAILY Supplement 01/06/22
pravastatin 40 mg tablet 40 mg PO HS High cholesterol 01/06/22
venlafaxine 150 mg capsule,extended release 24 hr 150 mg PO DAILY Mental Health/Anxiety 07/06/22
apixaban 5 mg tablet (Eliquis) 5 mg PO BID Blood Clot Prevention/Tx #60 tabs 05/21/23
aluminum-mag hydroxide-simethicone 200 mg-200 mg-20 mg/5 mL oral susp 10 ml PO QID PRN indigestion 07/19/23
fludrocortisone 0.1 mg tablet 0.1 mg PO BID Orthostatic hypotension 07/19/23
omeprazole 40 mg capsule,delayed release 40 mg PO DAILY Gastrointestinal Issue 07/19/23
sennosides 8.6 mg-docusate sodium 50 mg tablet (Stool Softener-Stimulant Laxative) 1 tab PO BID 15 days #30 tabs 07/22/23
polyethylene glycol 3350 17 gram oral powder packet (Miralax) 17 g PO BID Constipation 07/26/23
digoxin 125 mcg (0.125 mg) tablet 125 mcg PO NOON #30 tabs 08/02/23
midodrine 5 mg tablet 10 mg (2 x 5 mg) PO TID@0800,1300,1800 #180 tabs 08/02/23
Home Medication Changes
Pending Results: No
[2023-08-02] MEDS: ProAmatine PO (09:02)
--- NOTE | 2023-08-02 10:26 | PTCARENOTE ---
Patient ordered for discharge, PT notified of need for PT prior to discharge.
[2023-08-02 12:17] LABS: Glucose - Point of Care 87 mg/dl (70-99)
[2023-08-02] MEDS: LANOXIN 125 MCG PO (13:07)
[2023-08-02 17:31] LABS: Glucose - Point of Care 82 mg/dl (70-99)
[2023-08-02] MEDS: PRAVACHOL 40 MG PO (19:36)
[2023-08-02] MEDS: FEOSOL 325 MG PO (19:37)
[2023-08-02 21:15] LABS: Glucose - Point of Care 89 mg/dl (70-99)
[2023-08-03] MEDS: COMPAZINE 5 MG IV (02:33)
[2023-08-03 03:29] VITALS: BP 135/72
[2023-08-03 06:00] VITALS: BMI 28.3
[2023-08-03 06:22] VITALS: BMI 28.3
[2023-08-03 08:06] VITALS: BP 147/80
[2023-08-03] MEDS: ProAmatine 10 MG PO (08:10)
[2023-08-03] MEDS: PROTONIX 40 MG PO (08:11)
[2023-08-03] MEDS: FLORINEF 0.100000000000000006 MG PO (08:11)
[2023-08-03] MEDS: ELIQUIS 5 MG PO (08:11)
[2023-08-03] MEDS: CELEXA 20 MG PO (08:11)
[2023-08-03] MEDS: VITAMIN B-12 100 MCG PO (08:11)
[2023-08-03] MEDS: GLUCOPHAGE 1000 MG PO (08:11)
[2023-08-03] MEDS: MIRALAX PO (08:12)
[2023-08-03] MEDS: SENOKOT-S PO (08:12)
[2023-08-03] MEDS: EFFEXOR XR 150 MG PO (08:15)
[2023-08-03] MEDS: DESENEX/MITRAZOL/ZEASORB 1 APPLIC TOPICAL (08:17)
[2023-08-03 08:50] LABS: Glucose - Point of Care 87 mg/dl (70-99)
--- NOTE | 2023-08-03 09:47 | W.PN.HOSP.TC ---
Today's Communication/Plan
-
d/c home with HH
Assessment / Plan
Assessment / Plan
Orthostatic hypotension
-increased midodrine to 10 mg 3 times daily. Continue compression stockings.
-Continue florinef
-Reviewed CT of the head a couple days ago and unremarkable
-d/c meclizine to avoid side effects
-At this point based on clinical course patient symptoms is chronic and will persist. As long as patient is capable of doing activity without significant limitation should participate in therapy as tolerated. Patient should limit
Paroxysmal atrial fibrillation
-rates now improved on digoxin. Continue Eliquis. Cardiology signed off.
-have nocturnal bradycardia - asymptomatic. Pause < 3 sec on tele. - Resolves once awake/active
-Discussed with daughter and may f/u with cardiology office at tertiary center.
Generalized weakness--> multifactorial related to not taking his medications over the last several days, anxiety, a fib, orthostatic, and now hospitalization.
-PT OT evaluation
-recommended to go to rehab but patient had poor experience in past and daughter prefers outpatient therapy. Script provided.
Chronic low back pain
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
-Recommend outpatient orthopedics follow-up. Per daughter planned to f/u with ortho/spinal surgeon outpatient basis.
Groin george
-Desenex BID topical and monitor
History of GI bleed-was seen at [facility] and transferred to [place]
History of choledocholithiasis requiring EDGE procedure which Axios stent done at [place] in April 2023
Endoscopy and colonoscopy May without any evidence of bleeding
Diabetes-with neuropathy
-On gabapentin (prn) and metformin 2000 BID as OP
-Metformin 1000 BID ordered here now
History of gastric bypass surgery/GERD-PPI to be continued
Chronic heart failure with preserved ejection fraction
Echo 05/17/2023-normal LV size, wall thickness and systolic function.� Normal RV size and function.� Mild MR.� Mild to moderate TR.� Mildly dilated aortic root.
Not on goal-directed therapy likely secondary to chronic orthostatic hypotension
Coronary artery disease with a stent
-statin
-on Eliquis, no antiplatelet
History of CVA- statin
-Eliquis
Hyperlipidemia/atherosclerosis
- statin
Essential Hypertension
-not on antihypertensive
-monitor
Anxiety and depression -psychiatry following.
-Celexa, venlafaxine dose being weaned off every 4 weeks, celexa down to 10mg/d and venlafaxine 75mg/d - new script sent to pharmacy per daughter request,.
-s/p Ativan x 1 in ED 0.5 mg
Superficial thrombosis of the right cephalic vein
History of iron deficiency anemia
Nephrolithiasis
BETSEY -unclear if on CPAP
Ex-smoker
Full code
08/02 care plan discussed with patient daughter. All quesions answered
Discussed that patient dizziness/orthostasis is a chronic symptom and will continue to have episodic symptoms. Unless patient has new different neurological deficit , dizziness
will be poor differentiator for diagnosis any acute issues. Patient should benefit with evaluation by cardiology at tertiary care center as well.
More than 30 minutes spent in discharge including
Final examination of the patient
Summarizing hospital stay
Instructions for continuing care to all relevant caregivers
Preparation of discharge records, prescriptions, and referral forms
Total time spent (in minutes): 38 mins
Anticipated Discharge: Today
Subjective/Interval History
-
Date of Service: August 03, 2023
denies of having dizziness
no reported other issues
Objective Data
-
Vital Signs:
Vital Signs
Temp Pulse Resp BP Pulse Ox
98.2 F 85 18 147/80 97
08/03/23 08:06 08/03/23 08:10 08/03/23 08:06 08/03/23 08:10 08/03/23 09:25
I&O
08/02/23 08/03/23 08/04/23
06:59 06:59 06:59
Intake Total 960 / 960 1260 / 1260
Output Total 800 / 800 830 / 830
Balance 160 / 160 1235 / 1235 -830 / -830
Review of Systems
-
Respiratory: Reports No Symptoms
Cardiac: Reports No Symptoms
Abdomen/GI: Reports No Symptoms
Physical Exam
-
General: Negative Appears in Distress
HEENT: Negative Oxygen
Respiratory: Clear to Auscultation
Cardiac: S1/S2 and Irregular Rhythm; Negative Murmur
Musculoskeletal: No Edema
Neuro: Awake, Alert, Oriented and No Motor Deficits
--- NOTE | 2023-08-03 09:48 | PTCARENOTE ---
Patient with Afib with heart rate as low as 38 with occasional PVCs. Patient sleeping at the time. Woken up and states that he does not have any symptoms. Reinforced to patient to ring for assistance and not get OOB on own. Patient verbalizes
understanding of fall precautions.
--- NOTE | 2023-08-03 09:53 | PTCARENOTE ---
Hospitalist aware of heart rate and states he does not qualify for pacemaker. Patient to be discharged today.
--- NOTE | 2023-08-03 10:58 | CM ---
Addendum entered by Keira Orozco RN 08/03/23 11:12:
Spoke with t Clair she said she requests him to come home with [facility] . prize coordinator will pick him up at 12:00. RN aware.
Original Note:
MD entered order for dc.
[facility] set up for patient by Lisa liaison from [facility] .
LM with daughter Clair [phone] .
[facility] this am regarding dc today.
His prize coordinator Tiffany will be picking him up and drive him home.
Remains observation status.
PLAN Home with [facility]
--- NOTE | 2023-08-03 11:18 | PTCARENOTE ---
Spoke to patient's daughter via phone regarding discharge instructions. Daughter states that his antianxiety medications should be on a weaning schedule. Contacted hospitalist and reviewed the two medications in question for him to review.
[2023-08-03 11:53] VITALS: BP 122/81; BP 130/81; BP 143/86; PULSE 67; PULSE 85; O2SAT 98
[2023-08-03 12:02] VITALS: BP 140/77
--- NOTE | 2023-08-04 07:52 | W.DCSUMMARY ---
Discharge Summary
Discharge Data
Date of Admission: 07/25/23
Date of Discharge: 08/03/23
-
Pending Results: No
Hospital Course
Discharging Physician : Dr Kenny Pike
Disposition : Home with private aid
Primary care physician : Dr William Renner
Principal Discharge diagnosis :
Orthostatic hypotension
Paroxysmal atrial fibrillation
Chronic low back pain
Chronic Discharge diagnosis :
History of gastrointestinal bleed
History of choledocholithiasis
Type 2 diabetes
Neuropathy
History of gastric bypass surgery
Gastroesophageal reflux disease
Chronic diastolic congestive heart failure
Coronary artery disease with stents
Hyperlipidemia
History of stroke
Essential hypertension
Anxiety/depression
Superficial thrombosis of right cephalic vein
History of iron deficiency anemia
Obstructive sleep apnea
Former smoker
Hospital Course :
Patient is 78-year-old male with above-mentioned past medical history came to ER for recurrence of weakness and dizziness. Patient was just discharged few days before after treatment of constipation and abdominal pain. Patient did not have any
focal neurological complaints during this ER visit and was admitted for further evaluation.
Orthostatic hypotension/chronic dizziness -patient have problem with episodic dizziness for quite some time and was felt to be related to component of orthostatic hypotension. On repeated testing unfortunately there is not always a correlation
with patient vitals and dizziness symptoms. Patient likely have component of chronic dizziness without true pathological etiology. CT head without contrast done on previous visit was unremarkable, no repeat imaging done. Patient was started on
midodrine and dose increased later to 10 mg 3 times daily. Patient was also on Florinef which was maintained. Patient symptom did improve was able to participate with physical therapy. Patient was recommended for long term facility for
rehab although daughter preferred patient to go have outpatient physical therapy. Patient remains at high possibility of reoccurrence admission for continual dizziness symptoms. I discussed at length with daughter for patient to be followed up
with tertiary care center physician in office as well.
Paroxysmal atrial fibrillation -patient unable to tolerate any rate control medication due to problems with orthostasis/dizziness. Patient has been started on digoxin with which patient heart rate controlled. Patient does have nocturnal
bradycardia although asymptomatic.
Chronic low back pain -x-ray of lumbar spine has been showing chronic degenerative changes of lumbar spine with multilevel facet arthrosis. Patient planning to be followed up by orthopedic surgery/spinal surgery on outpatient basis.
Important imaging findings :
None
Procedure findings :
None
Discharge Plan
-
Patient Disposition: Home with Home Care
Discharge Diagnosis/Procedures: Orthostatic hypotension, Constipation. Chronic diastolic congestive heart failure. Coronary artery disease. Paroxysmal atrial fibrillation. History of stroke. Probably cognitive deficits.
Condition: Good
Diet: Low Cholesterol
Activity: As tolerated
Driving Restrictions: No driving
Bathing Restrictions: None
Blood Work: CBC, BMP within 1 week. Digoxin level 1-2 weeks (cardiology has sent this lab slip sent electronically to [facility])- obtain this prior to taking your digoxin pill for the day!!
Other Services: [facility]
Specialty Instructions: Weigh Daily- Call MD for wt gain/loss 3 lbs overnight/5 lbs in 1 week
Activity Restrictions/Additional Instructions:
If feel dizzy, check blood pressure and if systolic BP < 100 can take extra 5mg - 1 pill of midodrine.
Please call ambulance if have any new neurological symptoms of limb weakness/sensation change/vision change/facial droop/speech changes.
Please establish care with bottom bleacher of choice at tertiary care center.
Referrals:
Deedee Basilio NP [Specified Professional Personl] - 08/16/23 3:20 pm
William Renner DO [Family Provider] - in less than 1 week
Prescriptions:
New
digoxin 125 mcg (0.125 mg) Tablet
125 mcg PO NOON Qty: 30 0RF
midodrine 5 mg tablet
10 mg PO TID 30 Days Qty: 180 1RF
Rx Instructions:
Take 1 extra pill if feeling dizzy AND Systolic blood pressure < 100
venlafaxine 75 mg tablet
75 mg PO DAILY Qty: 30 0RF
citalopram [Celexa] 10 mg tablet
10 mg PO DAILY Qty: 30 0RF
Continued
ferrous sulfate [FeroSul] 325 MG tablet
325 mg PO HS
metformin 1,000 MG tablet
2,000 mg PO BID@0800,1700
gabapentin 100 MG capsule
200 mg PO DAILYPRN PRN (Reason: pain)
cyanocobalamin (vitamin B-12) 100 mcg Tablet
100 mcg PO DAILY
pravastatin 40 mg Tablet
40 mg PO HS
cholecalciferol (vitamin D3) 25 mcg (1,000 unit) Tablet
25 mcg PO DAILY
Eliquis 5 mg Tablet
5 mg PO BID Qty: 60 0RF
omeprazole 40 mg capsule,delayed release(DR/EC)
40 mg PO DAILY
alum-mag hydroxide-simeth 200-200-20 mg/5 mL Suspension
10 ml PO QID PRN (Reason: indigestion)
fludrocortisone 0.1 mg tablet
0.1 mg PO BID
sennosides-docusate sodium [Stool Softener-Stimulant Laxat] 8.6-50 mg Tablet
1 tab PO BID 15 Days Qty: 30 0RF
polyethylene glycol 3350 [Miralax] 17 gram powder in packet
17 g PO BID
Discontinued
citalopram 40 mg Tablet
20 mg PO DAILY
venlafaxine 150 mg Capsule,Extended Release 24hr
150 mg PO DAILY
Discharge Orders:
Discharge Patient (As Directed); Ordered 08/03/23
Ordered By: Kenny Pike
Discharge Date and Time
Discharge Date/Time: 08/03/23 12:21
Print Language: SLOVENIAN
== END 2023-08-03 12:21 | disposition home health service (06) ==
LOC: 4 EAST ACU 18:46
PROVIDERS: Emergency Medicine; Hospitalist; ADMITTING PHYSICIAN Internal Medicine; ATTENDING PHYSICIAN Hospitalist; CONSULT PHYSICIAN Internal Medicine; CONSULT PHYSICIAN Psychiatry & Neurology Neurology; CONSULT PHYSICIAN Psychiatry & Neurology Psychiatry; EMERGENCY PHYSICIAN Emergency Medicine; FAMILY PHYSICIAN Family Medicine
DX: I95.1 Orthostatic hypotension (principal); R42 Dizziness and giddiness; I48.0 Paroxysmal atrial fibrillation; R53.1 Weakness; G89.29 Other chronic pain; M54.50 Low back pain, unspecified; B37.2 Candidiasis of skin and nail; K21.9 Gastro-esophageal reflux disease without esophagitis; I11.0 Hypertensive heart disease with heart failure; E11.40 Type 2 diabetes mellitus with diabetic neuropathy, unspecified; I25.2 Old myocardial infarction; R07.9 Chest pain, unspecified; R41.82 Altered mental status, unspecified; E78.00 Pure hypercholesterolemia, unspecified; F41.9 Anxiety disorder, unspecified; I82.611 Acute embolism and thrombosis of superficial veins of right upper extremity; I50.32 Chronic diastolic (congestive) heart failure; I25.10 Atherosclerotic heart disease of native coronary artery without angina pectoris; J44.9 Chronic obstructive pulmonary disease, unspecified; N20.0 Calculus of kidney; D50.9 Iron deficiency anemia, unspecified; M47.816 Spondylosis without myelopathy or radiculopathy, lumbar region; G47.33 Obstructive sleep apnea (adult) (pediatric); K59.00 Constipation, unspecified; Z87.891 Personal history of nicotine dependence; Z90.49 Acquired absence of other specified parts of digestive tract; Z98.84 Bariatric surgery status; Z86.73 Personal history of transient ischemic attack (TIA), and cerebral infarction without residual deficits; Z87.19 Personal history of other diseases of the digestive system; Z79.84 Long term (current) use of oral hypoglycemic drugs; Z79.01 Long term (current) use of anticoagulants; Z88.5 Allergy status to narcotic agent; Z88.8 Allergy status to other drugs, medicaments and biological substances; Z95.5 Presence of coronary angioplasty implant and graft; Z91.148 Patient's other noncompliance with medication regimen for other reason
CPT/HCPCS: 51701; 70450; 71046; 72110; 80048; 80053; 81003; 82607; 82728; 82746; 82962; 84443; 84484; 85025; 85027; 85610; 85652; 93005; 96374; 97116; 97162; 97166; 97530; 99285; G0378

== ENCOUNTER → 2023-09-24 10:21 | Outpatient (REF) | payer OTHER, SELFPAY | LOC: RAD 10:21 | PROVIDERS: ATTENDING PHYSICIAN Family Medicine | DX: R91.1 Solitary pulmonary nodule (principal) | CPT/HCPCS: 71250 ==

== ENCOUNTER → 2023-11-10 09:15 | Outpatient (REF) | payer OTHER, SELFPAY | LOC: DHSLP 09:15 | PROVIDERS: ATTENDING PHYSICIAN Internal Medicine Critical Care Medicine; FAMILY PHYSICIAN Family Medicine | DX: G47.31 Primary central sleep apnea (principal); G47.33 Obstructive sleep apnea (adult) (pediatric); G47.00 Insomnia, unspecified | CPT/HCPCS: 95810 ==

== ENCOUNTER → 2023-11-12 10:11 | Outpatient (REF) | payer OTHER, SELFPAY | LOC: RCS 10:11 | PROVIDERS: ATTENDING PHYSICIAN Internal Medicine; FAMILY PHYSICIAN Family Medicine | DX: I48.19 Other persistent atrial fibrillation (principal); I50.30 Unspecified diastolic (congestive) heart failure | CPT/HCPCS: 93225; 93226 ==

== ENCOUNTER → 2023-11-18 11:38 | Outpatient (REF) | payer OTHER, SELFPAY | LOC: RAD 11:38 | PROVIDERS: ATTENDING PHYSICIAN Family Medicine | DX: R41.3 Other amnesia (principal) | CPT/HCPCS: 70450 ==

== ENCOUNTER → 2023-12-10 09:15 | Outpatient (REF) | payer OTHER, SELFPAY | LOC: DHSLP 09:15 | PROVIDERS: ATTENDING PHYSICIAN Internal Medicine Critical Care Medicine; FAMILY PHYSICIAN Family Medicine | DX: G47.33 Obstructive sleep apnea (adult) (pediatric) (principal); G47.31 Primary central sleep apnea | CPT/HCPCS: 95811 ==

== ENCOUNTER 2024-01-21 17:07 | Emergency (ER) | payer OTHER, SELFPAY ==
[2024-01-21 17:10] VITALS: BP 139/77
[2024-01-21 19:09] LABS: Urine Albumin Trace (Neg - Trace); Urine Bilirubin Negative (Negative); Urine Character Clear (Clear); Urine Color Yellow; Urine Glucose Negative (Negative); Urine Ketone Negative (Negative); Urine Leukocyte Negative (Negative); Urine Nitrite Negative (Negative); Urine Occult Blood 4+ (Negative); Urine Specific Gravity 1.015 (<1.030); Urine Urobilinogen Negative (Neg - 1+)
[2024-01-21 19:32] LABS: Urine Bacteria Few (Negative); Urine Red Blood Cell 80-90 /HPF (0-2)
--- NOTE | 2024-01-21 19:36 | ED.GENMED ---
History of Present Illness
General
Chief Complaint: Urinary Symptoms
Source: patient
Exam Limitations: none
Time Seen by Provider: 01/21/24 19:20
History of Present Illness
History of Present Illness:
This is a 78 year old male that comes in with c/o urinary frequency. States that this has been going on for months. States that in the past few days it has gotten worse and he just can't take it. Denies any fever, chills, chest pain, SOB, abd pain,
nausea, vomiting, diarrhea, headache, dizziness, urinary burning.
Past History
Past History
ED Past Medical History: Arrthythmia (Atrial fibrillation), CAD, CHF, CVA (with right sided weakness), GERD, HTN, Hypercholesterolemia, NIDDM, [place], Psychiatric (Anxiety, Depression) and Other (GI bleed, GI stent, Orthostatic hypotension, Iron
deficiency anemia, Neuropathy, Sleep apnea, UTI, )
ED Past Surgical History: Cardiac (stent), Cholecystectomy, Orthopedic (Bilateral hip replacements, Left rotator cuff surgery, Right knee replacement) and Other (Gastric bypass)
Patient has exhibited threatening behavior?: No
PSI?: No
Social History
Tobacco: Former smoker
Alcohol: None
Drug: None
Personal:
Living: with family
Employment: Not employed
Family History
Family History: Other (Reviewed and Noncontributory)
Review of Systems
Review of Systems
All Other Systems: ROS reviewed and negative except as documented in HPI and ROS
Constitutional: Reports no symptoms; Denies fever or chills
EENT: Reports no symptoms
Respiratory: Reports no symptoms; Denies cough or trouble breathing
Cardiac: Reports no symptoms; Denies chest pain
ABD/GI: Reports no symptoms; Denies abdominal pain, nausea, vomiting or diarrhea
: Reports frequency; Denies dysuria or urgency
Musculoskeletal: Reports no symptoms
Skin: Reports no symptoms
Neurological: Reports no symptoms; Denies dizzy or headache
Psychiatric: Reports no symptoms
Phy Exam
General Physical Exam
General Presentation: no apparent distress
General age: appears stated age
General Skin: warm and dry
General Habitus: elderly
General Mental: alert
General Hydration: dry mucous membranes
ENT Exam
ENT Exam: TM's normal, pharynx normal and neck supple
Eye Exam
Eye Exam: EOMI
Cardiovascular Exam
Cardiovascular Exam: regular rate/rhythm and other (Murmur)
Pulmonary Exam
Pulmonary Exam: lungs clear, no respiratory distress, no rales, chest non tender, no crackles, no rhonchi, no wheezing and no cough
Gastrointestinal Exam
Gastrointestinal Exam: normal bowel sounds, non tender, soft, no organomegaly, no pulsatile mass and non distended
Musculoskeletal Exam
Musculoskeletal Exam: full ROM
Skin Exam
Skin Exam: normal color, warm/dry, no rash and no petechia
Psychiatric Exam
Psychiatric Exam: normal mood/affect
Course
Orders/Labs/Results
Orders:
Orders
01/21/24 18:52
Urinalysis Reflex To Culture Urgent
Date Specimen was Collected: 01/21/24
Time Specimen was Collected: 18:48
Urine Microscopic Reflex Cult Urgent
Abnormal Lab Results
01/21/24
18:52
Ur Occult Blood Reflex 4+ A
(Negative)
Urine RBC 80-90 A /HPF
(0-2)
Urine Bacteria (Reflex) Few A
(Negative)
Urine negative for infection.
Vital Signs
Initial and Last Documented VS:
Initial Vital Signs
Temp Pulse Resp BP Pulse Ox
98.3 F 65 20 139/77 96
01/21/24 17:10 01/21/24 17:10 01/21/24 17:10 01/21/24 17:10 01/21/24 17:10
Last Documented Vital Signs
Temp Pulse Resp BP Pulse Ox
98.3 F 65 20 139/77 97
01/21/24 17:10 01/21/24 17:10 01/21/24 17:10 01/21/24 17:10 01/21/24 19:47
MDM/Problems Addressed
Differential Diagnosis Includes:
Urinary frequency, UTI
MDM/Problems Addressed:
This is a 78 year old male that comes in with c/o urinary frequency. States that this has been going on for Months and that it has gotten worse in the past few days. States that he wants a catheter.
Explained to patient that his urine is negative for infection. Patient was bladder scanned and the most that was found was 55ml. Explained to patient that a catheter will not be placed as this could cause more of a chance for infection. Will try
[place] catheter connected to leg bag. Patient states that he is just to small for a [place] catheter. Will try.
[place] catheter was place and connected to leg bag. Patient states that he feels that he can put this on. Will discharge home.
Chronic conditions affecting care:
history of UTi
Chronic conditions affecting care: DM
Acute Exacerbation and/or Progression of Chronic Illness:
History of UTI
*Pulse Oximetry
Patient hypoxic: no
*EKG
Interpreted by ED Provider?: NA
Rate: EKG- N/A
*Glass Silverer Interpretation
Rate: Glass Silverer- N/A
*Critical Care Note
Total Time (30-74mins, 75-104mins- exclusive of procedures): Not Applicable
ED Attending Note
-
Portions of this chart may have been created with voice recognition software.� Occasional wrong word or��sound alike� substitutions may have occurred due to the inherent limitations of voice recognition software.
Discharge Plan
Departure
Patient Disposition: Home (Routine Discharge)
Date of Disposition: 01/21/24
Time of Disposition: 20:11
Patient with high blood pressure during this ER visit?: Yes
Condition: Good
Covid-19: Not Applicable
Discharge Problem:
Urinary frequency
Instructions: BLOOD PRESSURE
Prescriptions:
No Action
ferrous sulfate [FeroSul] 325 MG tablet
325 mg PO HS
metformin 1,000 MG tablet
2,000 mg PO BID@0800,1700
gabapentin 100 MG capsule
200 mg PO DAILYPRN PRN (Reason: pain)
cyanocobalamin (vitamin B-12) 100 mcg Tablet
100 mcg PO DAILY
pravastatin 40 mg Tablet
40 mg PO HS
cholecalciferol (vitamin D3) 25 mcg (1,000 unit) Tablet
25 mcg PO DAILY
Eliquis 5 mg Tablet
5 mg PO BID Qty: 60 0RF
omeprazole 40 mg capsule,delayed release(DR/EC)
40 mg PO DAILY
alum-mag hydroxide-simeth 200-200-20 mg/5 mL Suspension
10 ml PO QID PRN (Reason: indigestion)
fludrocortisone 0.1 mg tablet
0.1 mg PO BID
sennosides-docusate sodium [Stool Softener-Stimulant Laxat] 8.6-50 mg Tablet
1 tab PO BID 15 Days Qty: 30 0RF
polyethylene glycol 3350 [Miralax] 17 gram powder in packet
17 g PO BID
digoxin 125 mcg (0.125 mg) Tablet
125 mcg PO NOON Qty: 30 0RF
midodrine 5 mg tablet
10 mg PO TID 30 Days Qty: 180 1RF
Rx Instructions:
Take 1 extra pill if feeling dizzy AND Systolic blood pressure < 100
venlafaxine 75 mg tablet
75 mg PO DAILY Qty: 30 0RF
citalopram [Celexa] 10 mg tablet
10 mg PO DAILY Qty: 30 0RF
Referrals:
Tejinder Jc MD [Active] - Call in 1-3 days for appt
Activity Restrictions/Additional Instructions:
As discussed, your urine was negative for infection. You are not retaining urine as there was only 55ml in the bladder. You have had a [place] catheter placed and connected to a leg bag. Please follow up with the Urologist for further evaluation. IF
YOU HAVE ANY OTHER CONCERNS PLEASE RETURN TO THE EMERGENCY ROOM.
Interventions
Interventions:
*General Assessment Last Done: 01/21/24 17:10
*Neglect/Abuse Screening Last Done: 01/21/24 19:47
ED- Fall Risk Assessment Last Done: 01/21/24 19:47
*ED COVID-19 Vaccine History Last Done: 01/21/24 19:47
ED-Male Genitourinary Assessment Last Done: 01/21/24 19:47
Discharge Date and Time
Print Language: ISRAELI
[2024-01-21 19:46] VITALS: BP 154/78
[2024-01-21 19:47] VITALS: BMI 28.1
[2024-01-21 20:00] VITALS: BP 144/83
[2024-01-21 21:00] VITALS: BP 144/94
== END 2024-01-21 21:23 | disposition home or self-care (01) ==
LOC: EMR 17:07
PROVIDERS: Emergency Medicine; EMERGENCY PHYSICIAN Emergency Medicine; FAMILY PHYSICIAN Family Medicine
DX: R35.0 Frequency of micturition (principal); I25.10 Atherosclerotic heart disease of native coronary artery without angina pectoris; I11.0 Hypertensive heart disease with heart failure; I50.9 Heart failure, unspecified; E78.00 Pure hypercholesterolemia, unspecified; E11.40 Type 2 diabetes mellitus with diabetic neuropathy, unspecified; I48.91 Unspecified atrial fibrillation; G47.30 Sleep apnea, unspecified; F41.9 Anxiety disorder, unspecified; F32.A Depression, unspecified; I69.351 Hemiplegia and hemiparesis following cerebral infarction affecting right dominant side; K21.9 Gastro-esophageal reflux disease without esophagitis; D50.9 Iron deficiency anemia, unspecified; I25.2 Old myocardial infarction; Z98.84 Bariatric surgery status; Z79.01 Long term (current) use of anticoagulants; Z95.5 Presence of coronary angioplasty implant and graft; Z96.643 Presence of artificial hip joint, bilateral; Z96.651 Presence of right artificial knee joint; Z87.440 Personal history of urinary (tract) infections; Z87.891 Personal history of nicotine dependence; Z90.49 Acquired absence of other specified parts of digestive tract; Z88.5 Allergy status to narcotic agent; Z88.8 Allergy status to other drugs, medicaments and biological substances
CPT/HCPCS: 99284; 51798; 51702; 81003; 81015

== ENCOUNTER 2024-03-09 11:50 | Emergency (ER) | payer OTHER, SELFPAY ==
[2024-03-09 11:54] VITALS: BP 124/70
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
[2024-03-09] MEDS: ULTRAM 50 MG PO (13:02)
== END 2024-03-09 14:32 | disposition home or self-care (01) ==
LOC: EMR 11:50
PROVIDERS: EMERGENCY PHYSICIAN Emergency Medicine; FAMILY PHYSICIAN Family Medicine
DX: M54.50 Low back pain, unspecified (principal); G89.29 Other chronic pain; I25.10 Atherosclerotic heart disease of native coronary artery without angina pectoris; E78.00 Pure hypercholesterolemia, unspecified; E11.9 Type 2 diabetes mellitus without complications; I11.0 Hypertensive heart disease with heart failure; I50.9 Heart failure, unspecified; I48.91 Unspecified atrial fibrillation; G47.30 Sleep apnea, unspecified; I69.951 Hemiplegia and hemiparesis following unspecified cerebrovascular disease affecting right dominant side; K21.9 Gastro-esophageal reflux disease without esophagitis; Z87.891 Personal history of nicotine dependence; Z95.5 Presence of coronary angioplasty implant and graft; Z98.84 Bariatric surgery status
CPT/HCPCS: 99283; 72110; 72170

== ENCOUNTER 2024-03-18 15:17 | Emergency (ER) | payer SELFPAY ==
[2024-03-18 15:18] VITALS: BP 141/79
[2024-03-18 15:20] VITALS: BP 141/79
[2024-03-18] MEDS: NORCO 5/325 1 TABLET PO (15:58)
[2024-03-18] MEDS: LIDOCAINE 4% PATCH 1 PATCH TOPICAL (15:58)
[2024-03-18 16:00] VITALS: BP 148/113
--- NOTE | 2024-03-18 16:07 | ED.GENMED ---
History of Present Illness
General
Chief Complaint: Back Pain
Source: patient and family (daughter. )
Exam Limitations: none
Time Seen by Provider: 03/18/24 15:40
Nursing documentation reviewed up to this point in time: agreed with
History of Present Illness
History of Present Illness:
Patient to ED with complaint of low back pain. He was seen in ED approx 2 weeks ago for same. Given rx for Tramadol without improvement. He has been evaluated in past by [facility] provider but daughter states they were unahppy with visit and are
looking to go elsewhere. He was given number for [facility] in his discharge packet last visit but daughter states he has not made an appointment yet. No history of trauma. No fever/chills, recent illness. Denies radiation of pain. No weakness
in extremities. No bowel or bladder issues. Brought to ED by EMS for eval. Attempted to call but no answer. I was able to reach daughter.
Past History
Past History
ED Past Medical History: Arrthythmia (Atrial fibrillation), CAD, CHF, CVA (with right sided weakness), GERD, HTN, Hypercholesterolemia, NIDDM, [place], Psychiatric (Anxiety, Depression) and Other (GI bleed, GI stent, Orthostatic hypotension, Iron
deficiency anemia, Neuropathy, Sleep apnea, UTI, )
ED Past Surgical History: Cardiac (stent), Cholecystectomy, Orthopedic (Bilateral hip replacements, Left rotator cuff surgery, Right knee replacement) and Other (Gastric bypass)
Patient has exhibited threatening behavior?: No
PSI?: No
Social History
Tobacco: Former smoker
Alcohol: None
Drug: None
Personal:
Living: with family
Employment: Not employed
Family History
Family History: Other (Reviewed and Noncontributory)
Review of Systems
Review of Systems
Allergies reviewed?: Yes
All Other Systems: ROS reviewed and negative except as documented in HPI and ROS
Constitutional: Reports no symptoms
EENT: Reports no symptoms
Respiratory: Reports no symptoms
Cardiac: Reports no symptoms
ABD/GI: Reports no symptoms
: Reports no symptoms
Musculoskeletal: Reports back pain
Skin: Reports no symptoms
Neurological: Reports no symptoms
Psychiatric: Reports no symptoms
Phy Exam
General Physical Exam
General Presentation: mild distress
General age: appears stated age
General Skin: warm and dry
General Habitus: normal
General Mental: alert
Cardiovascular Exam
Cardiovascular Exam: regular rate/rhythm and no edema
Pulmonary Exam
Pulmonary Exam: lungs clear and no respiratory distress
Gastrointestinal Exam
Gastrointestinal Exam: normal bowel sounds and non tender
Musculoskeletal Exam
Musculoskeletal Exam: back pain (chronic low back pain) and neuro vasc intact
Skin Exam
Skin Exam: normal color, warm/dry and no rash
Psychiatric Exam
Psychiatric Exam: normal mood/affect
Course
Orders/Labs/Results
Orders:
Orders
03/18/24 15:54
Hydrocodone 5/APAP 325 [[place] 5/325] 1 tablet PO NOW STA
Lidocaine [Lidocaine 4% Patch] 1 patch TOPICAL NOW STA
Apply Lidocaine patch(s) to:: low back
Vital Signs
Initial and Last Documented VS:
Initial Vital Signs
BP
141/79
03/18/24 15:18
Last Documented Vital Signs
Temp Pulse Resp BP Pulse Ox
98.3 F 72 15 146/120 99
03/18/24 15:20 03/18/24 18:30 03/18/24 18:30 03/18/24 17:00 03/18/24 18:30
*Critical Care Note
Total Time (30-74mins, 75-104mins- exclusive of procedures): Not Applicable
Update Note
Update Note:
Improved with narcotic pain medication and lidocaine patch. Discussed care with daughter. WIll discharge home with rx for lidocaine patch and short course of [place]. [facility] number again for pain management follow up.
ED Attending Note
-
Portions of this chart may have been created with voice recognition software.� Occasional wrong word or��sound alike� substitutions may have occurred due to the inherent limitations of voice recognition software.
Discharge Plan
Departure
Patient Disposition: Home (Routine Discharge)
Date of Disposition: 03/18/24
Time of Disposition: 17:37
Patient with high blood pressure during this ER visit?: No
Condition: Good
Covid-19: Not Applicable
Discharge Problem:
Back pain
Instructions: Low Back Pain (DC)
Prescriptions:
New
hydrocodone-acetaminophen 5-325 mg tablet
1 tab PO Q12H PRN (Reason: Pain) Qty: 10 0RF
lidocaine 4 % adhesive patch,medicated
1 patch topical DAILY Qty: 10 0RF
No Action
ferrous sulfate [FeroSul] 325 MG tablet
325 mg PO HS
metformin 1,000 MG tablet
2,000 mg PO BID@0800,1700
gabapentin 100 MG capsule
200 mg PO DAILYPRN PRN (Reason: pain)
cyanocobalamin (vitamin B-12) 100 mcg Tablet
100 mcg PO DAILY
pravastatin 40 mg Tablet
40 mg PO HS
cholecalciferol (vitamin D3) 25 mcg (1,000 unit) Tablet
25 mcg PO DAILY
Eliquis 5 mg Tablet
5 mg PO BID Qty: 60 0RF
omeprazole 40 mg capsule,delayed release(DR/EC)
40 mg PO DAILY
alum-mag hydroxide-simeth 200-200-20 mg/5 mL Suspension
10 ml PO QID PRN (Reason: indigestion)
fludrocortisone 0.1 mg tablet
0.1 mg PO BID
sennosides-docusate sodium [Stool Softener-Stimulant Laxat] 8.6-50 mg Tablet
1 tab PO BID 15 Days Qty: 30 0RF
polyethylene glycol 3350 [Miralax] 17 gram powder in packet
17 g PO BID
digoxin 125 mcg (0.125 mg) Tablet
125 mcg PO NOON Qty: 30 0RF
midodrine 5 mg tablet
10 mg PO TID 30 Days Qty: 180 1RF
Rx Instructions:
Take 1 extra pill if feeling dizzy AND Systolic blood pressure < 100
venlafaxine 75 mg tablet
75 mg PO DAILY Qty: 30 0RF
citalopram [Celexa] 10 mg tablet
10 mg PO DAILY Qty: 30 0RF
tramadol 50 mg tablet
50 mg PO BID PRN (Reason: Pain) Qty: 14 0RF
Referrals:
William Renner DO [Family Provider] - Follow up in 2-3 days
Interventions
Interventions:
*Risk Screen - Suicide Last Done: 03/18/24 15:20
*General Assessment Last Done: 03/18/24 15:20
*Neglect/Abuse Screening Last Done: 03/18/24 15:20
ED- Fall Risk Assessment Last Done: 03/18/24 20:03
*Nursing Disposition Last Done: 03/18/24 20:03
ED-Musculoskeletal Assessment Last Done: 03/18/24 18:43
Discharge Date and Time
Discharge Date/Time: 03/18/24 20:03
Print Language: FILIPINO
[2024-03-18 17:00] VITALS: BP 146/120
== END 2024-03-18 20:03 | disposition home or self-care (01) ==
LOC: EMR 15:17
PROVIDERS: EMERGENCY PHYSICIAN Emergency Medicine; FAMILY PHYSICIAN Family Medicine
DX: M54.50 Low back pain, unspecified (principal); I48.91 Unspecified atrial fibrillation; I25.10 Atherosclerotic heart disease of native coronary artery without angina pectoris; I11.0 Hypertensive heart disease with heart failure; I50.9 Heart failure, unspecified; E78.00 Pure hypercholesterolemia, unspecified; K21.9 Gastro-esophageal reflux disease without esophagitis; E11.9 Type 2 diabetes mellitus without complications; I25.2 Old myocardial infarction; F41.8 Other specified anxiety disorders; D50.9 Iron deficiency anemia, unspecified; G62.9 Polyneuropathy, unspecified; G47.30 Sleep apnea, unspecified; Z86.73 Personal history of transient ischemic attack (TIA), and cerebral infarction without residual deficits; Z87.440 Personal history of urinary (tract) infections; Z87.891 Personal history of nicotine dependence; Z90.49 Acquired absence of other specified parts of digestive tract; Z95.5 Presence of coronary angioplasty implant and graft; Z96.643 Presence of artificial hip joint, bilateral; Z96.651 Presence of right artificial knee joint; Z98.84 Bariatric surgery status
CPT/HCPCS: 99282

== ENCOUNTER 2024-04-01 06:12 | Emergency (ER) | payer MEDICARE, OTHER, SELFPAY ==
[2024-04-01 06:24] VITALS: BP 134/68
--- NOTE | 2024-04-01 06:30 | ED.GENMED ---
History of Present Illness
General
Chief Complaint: Musculo-Skeletal Complaint
Source: patient
Exam Limitations: none
Time Seen by Provider: 04/01/24 06:27
History of Present Illness
History of Present Illness:
See MDM
Past History
Past History
ED Past Medical History: Arrthythmia (Atrial fibrillation), CAD, CHF, CVA (with right sided weakness), GERD, HTN, Hypercholesterolemia, NIDDM, [place], Psychiatric (Anxiety, Depression) and Other (GI bleed, GI stent, Orthostatic hypotension, Iron
deficiency anemia, Neuropathy, Sleep apnea, UTI, )
ED Past Surgical History: Cardiac (stent), Cholecystectomy, Orthopedic (Bilateral hip replacements, Left rotator cuff surgery, Right knee replacement) and Other (Gastric bypass)
Patient has exhibited threatening behavior?: No
PSI?: No
Social History
Tobacco: Former smoker
Alcohol: None
Drug: None
Personal:
Living: with family
Employment: Not employed
Family History
Family History: Other (Reviewed and Noncontributory)
Phy Exam
Physical Exam
Physical Exam:
See MDM
Course
Orders/Labs/Results
Orders:
Orders
04/01/24 06:30
Oxycodone [Roxicodone] 5 mg PO NOW STA
US Periph Venous LOWER Ext RT Urgent
Comment:
Reason For Exam: R leg swelling and pain
04/01/24 09:06
Ketorolac [Toradol] 30 mg IV NOW STA
04/01/24 09:07
Cephalexin Monohydrate [Keflex] 500 mg PO NOW STA
Vital Signs
Initial and Last Documented VS:
Initial Vital Signs
Temp Pulse Resp BP Pulse Ox
98.5 F 83 20 134/68 100
04/01/24 06:24 04/01/24 06:24 04/01/24 06:24 04/01/24 06:24 04/01/24 06:24
Last Documented Vital Signs
Temp Pulse Resp BP Pulse Ox
98.5 F 83 20 134/68 100
04/01/24 06:24 04/01/24 06:24 04/01/24 06:24 04/01/24 06:24 04/01/24 06:24
MDM/Problems Addressed
Differential Diagnosis Includes:
HPI and MDM Narrative:
78-year-old male presenting with right leg swelling for the past 24 hours. Patient complains of pain with the swelling. On exam, patient does have erythema and tenderness noted to his right leg. There are scabs where he has been scratching. We
discussed this is either DVT or cellulitis. Patient does not think he is on blood thinners. Will obtain ultrasound to rule out DVT
Physical exam
General: Well appearing and non-toxic
HEENT: protecting airway
Neck: appears supple
CV: No evidence of cyanosis
Resp: No accessory muscle use
Abd: Non-distended
Extremities: Right leg edema and tenderness. Distal extremity sensation intact. Cap refill less than 2 seconds
Neuro: alert
Psych: Normal affect
Skin: Cellulitic changes around scabbing to right leg
Problems Addressed including Acute and Chronic Conditions affecting care:
1. Right leg swelling and erythema
Acuity: acute
Prognosis: stable
Details: Will obtain ultrasound rule out DVT. If negative, will treat as cellulitis
Updates
Ultrasound negative for DVT. Will start Keflex
Differential Diagnosis (but not limited to): DVT, cellulitis
Testing considered: Blood work
Drug therapy (if applicable): OTC meds, please see d/c instruction regarding Rx drugs
Amount and/or Complexity of Data Reviewed
Clinical info obtained from: Patient
External data reviewed: N/A
Labs I independently reviewed (but not limited to): N/A
Radiology: Ultrasound report reviewed
Pulse Ox: not hypoxic
EKG independently reviewed: N/A
Public Safety Teacher: N/A
Critical Care: N/A
Risk of Complication:
Social Determinants of health: Good social support
Discussed with other providers: N/A
Escalation of Care includes Admit/Obs: After being observed in the Emergency Department, pt stable for discharge.
Occasional wrong word or 'sound a like' substitutions may have occurred due to the inherent limitations of voice recognition software. Read the chart carefully and recognize, using context, where substitutions have occurred.
*Critical Care Note
Total Time (30-74mins, 75-104mins- exclusive of procedures): Not Applicable
ED Attending Note
-
Portions of this chart may have been created with voice recognition software.� Occasional wrong word or��sound alike� substitutions may have occurred due to the inherent limitations of voice recognition software.
Discharge Plan
Departure
Patient Disposition: Home (Routine Discharge)
Date of Disposition: 04/01/24
Time of Disposition: 09:07
Patient with high blood pressure during this ER visit?: No
Discharge Problem:
Cellulitis
Instructions: Cellulitis (Skin Infection), Adult ED
Prescriptions:
New
oxycodone 5 mg tablet
5 mg PO Q8H PRN (Reason: Pain) Qty: 7 0RF
cephalexin 500 mg capsule
500 mg PO BID 10 Days Qty: 20 0RF
No Action
ferrous sulfate [FeroSul] 325 MG tablet
325 mg PO HS
metformin 1,000 MG tablet
2,000 mg PO BID@0800,1700
gabapentin 100 MG capsule
200 mg PO DAILYPRN PRN (Reason: pain)
cyanocobalamin (vitamin B-12) 100 mcg Tablet
100 mcg PO DAILY
pravastatin 40 mg Tablet
40 mg PO HS
cholecalciferol (vitamin D3) 25 mcg (1,000 unit) Tablet
25 mcg PO DAILY
Eliquis 5 mg Tablet
5 mg PO BID Qty: 60 0RF
omeprazole 40 mg capsule,delayed release(DR/EC)
40 mg PO DAILY
alum-mag hydroxide-simeth 200-200-20 mg/5 mL Suspension
10 ml PO QID PRN (Reason: indigestion)
fludrocortisone 0.1 mg tablet
0.1 mg PO BID
sennosides-docusate sodium [Stool Softener-Stimulant Laxat] 8.6-50 mg Tablet
1 tab PO BID 15 Days Qty: 30 0RF
polyethylene glycol 3350 [Miralax] 17 gram powder in packet
17 g PO BID
digoxin 125 mcg (0.125 mg) Tablet
125 mcg PO NOON Qty: 30 0RF
midodrine 5 mg tablet
10 mg PO TID 30 Days Qty: 180 1RF
Rx Instructions:
Take 1 extra pill if feeling dizzy AND Systolic blood pressure < 100
venlafaxine 75 mg tablet
75 mg PO DAILY Qty: 30 0RF
citalopram [Celexa] 10 mg tablet
10 mg PO DAILY Qty: 30 0RF
tramadol 50 mg tablet
50 mg PO BID PRN (Reason: Pain) Qty: 14 0RF
hydrocodone-acetaminophen 5-325 mg tablet
1 tab PO Q12H PRN (Reason: Pain) Qty: 10 0RF
lidocaine 4 % adhesive patch,medicated
1 patch topical DAILY Qty: 10 0RF
Referrals:
William Renner DO [Family Provider] -
Activity Restrictions/Additional Instructions:
Watch for worsening signs of infection: fever over 100.5', increasing pain, red streaks around wound, swelling, or increasing drainage of pus. If any of these happen, return to ED promptly. Make sure that you take all your antibiotics as directed
and finish your prescription even if you feel better before the bottle is empty
Interventions
Interventions:
*Risk Screen - Suicide Last Done: 04/01/24 06:17
*General Assessment Last Done: 04/01/24 06:37
*Neglect/Abuse Screening Last Done: 04/01/24 06:37
ED- Fall Risk Assessment Last Done: 04/01/24 06:42
*ED COVID-19 Vaccine History Last Done: 04/01/24 06:17
ED-Musculoskeletal Assessment Last Done: 04/01/24 06:42
Discharge Date and Time
Print Language: [id number]
[2024-04-01] MEDS: ROXICODONE 5 MG PO (06:36)
[2024-04-01 06:37] VITALS: BMI 31.9
[2024-04-01] MEDS: KEFLEX 500 MG PO (09:18)
[2024-04-01 09:27] VITALS: BP 132/82
[2024-04-01] MEDS: TORADOL 30 MG IM (09:59)
== END 2024-04-01 09:10 | disposition home or self-care (01) ==
LOC: EMR 06:12
PROVIDERS: EMERGENCY PHYSICIAN Student in an Organized Health Care Education/Training Program; FAMILY PHYSICIAN Family Medicine
DX: L03.115 Cellulitis of right lower limb (principal); M79.604 Pain in right leg; I48.91 Unspecified atrial fibrillation; I25.10 Atherosclerotic heart disease of native coronary artery without angina pectoris; I11.0 Hypertensive heart disease with heart failure; I50.9 Heart failure, unspecified; E78.00 Pure hypercholesterolemia, unspecified; E11.40 Type 2 diabetes mellitus with diabetic neuropathy, unspecified; F32.A Depression, unspecified; F41.9 Anxiety disorder, unspecified; G47.30 Sleep apnea, unspecified; D50.9 Iron deficiency anemia, unspecified; I69.351 Hemiplegia and hemiparesis following cerebral infarction affecting right dominant side; K21.9 Gastro-esophageal reflux disease without esophagitis; I25.2 Old myocardial infarction; Z95.5 Presence of coronary angioplasty implant and graft; Z96.643 Presence of artificial hip joint, bilateral; Z96.651 Presence of right artificial knee joint; Z87.440 Personal history of urinary (tract) infections; Z87.891 Personal history of nicotine dependence; Z98.84 Bariatric surgery status; Z90.49 Acquired absence of other specified parts of digestive tract
CPT/HCPCS: 99284; 93971

== ENCOUNTER 2024-04-10 05:42 | Emergency (ER) | payer MEDICARE, OTHER, SELFPAY ==
[2024-04-10 05:47] VITALS: BP 147/74
[2024-04-10 08:11] VITALS: BP 158/85; BMI 32.5
--- NOTE | 2024-04-10 08:18 | ED.GENMED ---
History of Present Illness
<MANDA Pal - Last Filed: 04/10/24 11:19>
General
Chief Complaint: Skin Problem
Source: patient
Exam Limitations: none
Time Seen by Provider: 04/10/24 08:08
Nursing documentation reviewed up to this point in time: agreed with
History of Present Illness
History of Present Illness:
Patient is an 78-year-old male who presents to the ER for evaluation. Patient was seen here 04/01 diagnosed with cellulitis. He was discharged on Keflex. He reports he never'received' the antibiotics. He reports his scripts are normally are
sent to [facility] pharmacy.
He complains of worsening swelling and redness to his right lower leg. He denies any fever chills.
He reports his left leg is now starting to get red.
When patient was seen here April 01 they did have a negative ultrasound .
Daughter called : Sanam reports pt does have dementia and has not been taking the antibx . She reports he has dementia and has an aide there from 9 am to 2 pm .
Past History
<MANDA Pal - Last Filed: 04/10/24 11:19>
Past History
ED Past Medical History: Arrthythmia (Atrial fibrillation), CAD, CHF, CVA (with right sided weakness), GERD, HTN, Hypercholesterolemia, NIDDM, [place], Psychiatric (Anxiety, Depression) and Other (GI bleed, GI stent, Orthostatic hypotension, Iron
deficiency anemia, Neuropathy, Sleep apnea, UTI, )
ED Past Surgical History: Cardiac (stent), Cholecystectomy, Orthopedic (Bilateral hip replacements, Left rotator cuff surgery, Right knee replacement) and Other (Gastric bypass)
Patient has exhibited threatening behavior?: No
PSI?: No
Social History
Tobacco: Former smoker
Alcohol: None
Drug: None
Personal:
Living: with family
Employment: Not employed
Family History
Family History: Other (Reviewed and Noncontributory)
Review of Systems
<MANDA Pal - Last Filed: 04/10/24 11:19>
Review of Systems
Allergies reviewed?: Yes
All Other Systems: ROS reviewed and negative except as documented in HPI and ROS
Constitutional: Reports no symptoms; Denies fever
Respiratory: Reports no symptoms
Cardiac: Reports no symptoms
ABD/GI: Reports no symptoms
Musculoskeletal: Reports other (increasing swelling/redness to right lower leg ; in addition starting with mild swelling/redness to left lower leg )
Skin: Reports other (see above )
Neurological: Reports no symptoms
Psychiatric: Reports no symptoms
Phy Exam
<MANDA Pal - Last Filed: 04/10/24 11:19>
General Physical Exam
General Presentation: no apparent distress
General age: appears stated age
General Skin: warm and dry
General Habitus: normal
General Mental: alert
General Hydration: appears well hydrated
Cardiovascular Exam
Cardiovascular Exam: regular rate/rhythm, no murmur and normal peripheral pulses
Pulmonary Exam
Pulmonary Exam: lungs clear and no respiratory distress
Neurological Exam
Neurological Exam: alert and oriented x3
Musculoskeletal Exam
Musculoskeletal Exam: full ROM and other (Patient has swelling to right lower extremity with thickened skin redness mildly tender; left lower appears mildly swollen with mild erythema)
Skin Exam
Skin Exam: normal color and warm/dry
Psychiatric Exam
Psychiatric Exam: normal mood/affect
Course
<MANDA Pal - Last Filed: 04/10/24 11:19>
Orders/Labs/Results
Orders:
Orders
04/10/24 08:26
IV Insert/Care/Rem.- Treatment PRN
04/10/24 08:32
EKG [Electrocardiogram (*1)] Urgent
Reason for Study: Bradycardia / Tachycardia
EKG- Treatment ONCE
04/10/24 08:41
Basic Metabolic Panel Urgent
Complete Blood Count/With Diff Urgent
04/10/24 10:16
CeFAZolin 1 GRAM [Ancef] 1 gram in 5 ml IV NOW
Abnormal Lab Results
04/10/24
08:41
RBC 3.92 L 10^6/uL
(4.70-6.10)
Hgb 12.7 L g/dL
(13.0-18.0)
MCV 101.5 H fL
(80.0-94.0)
MCH 32.4 H pg
(27.0-31.0)
MCHC 31.9 L g/dL
(33.0-37.0)
RDW 14.9 H %
(11.5-14.5)
Plt Count 104 L 10^3/uL
(130-400)
MPV 10.7 H fL
(7.4-10.4)
Absolute Lymphs (auto) 0.6 L 10^3/uL
(1.2-3.4)
Absolute Monos (auto) 0.8 H 10^3/uL
(0.1-0.6)
Neutrophils % 77.6 H %
(42.2-75.2)
Lymphocytes % 8.5 L %
(20.5-51.1)
Monocytes % 12.3 H %
(1.7-9.3)
BUN 32 H mg/dl
(9-20)
Glucose 126 H mg/dl
(70-99)
04/10/24 08:41
04/10/24 08:41
Vital Signs
Initial and Last Documented VS:
Initial Vital Signs
Temp Pulse Resp BP Pulse Ox
97.8 F 65 18 147/74 99
04/10/24 05:47 04/10/24 05:47 04/10/24 05:47 04/10/24 05:47 04/10/24 05:47
Last Documented Vital Signs
Temp Pulse Resp BP Pulse Ox
97.8 F 67 14 144/64 99
04/10/24 05:47 04/10/24 10:37 04/10/24 10:37 04/10/24 10:37 04/10/24 10:37
Video Effects Editor consulted with Physician
Video Effects Editor consulted with physician?: Yes
Name of Physician Consulted: Preet
<Olena Oviedo MD - Last Filed: 04/10/24 10:24>
Orders/Labs/Results
Orders:
Orders
04/10/24 08:26
IV Insert/Care/Rem.- Treatment PRN
04/10/24 08:32
EKG [Electrocardiogram (*1)] Urgent
Reason for Study: Bradycardia / Tachycardia
EKG- Treatment ONCE
04/10/24 08:41
Basic Metabolic Panel Urgent
Complete Blood Count/With Diff Urgent
04/10/24 10:16
CeFAZolin 1 GRAM [Ancef] 1 gram in 5 ml IV NOW
Abnormal Lab Results
04/10/24
08:41
RBC 3.92 L 10^6/uL
(4.70-6.10)
Hgb 12.7 L g/dL
(13.0-18.0)
MCV 101.5 H fL
(80.0-94.0)
MCH 32.4 H pg
(27.0-31.0)
MCHC 31.9 L g/dL
(33.0-37.0)
RDW 14.9 H %
(11.5-14.5)
Plt Count 104 L 10^3/uL
(130-400)
MPV 10.7 H fL
(7.4-10.4)
Absolute Lymphs (auto) 0.6 L 10^3/uL
(1.2-3.4)
Absolute Monos (auto) 0.8 H 10^3/uL
(0.1-0.6)
Neutrophils % 77.6 H %
(42.2-75.2)
Lymphocytes % 8.5 L %
(20.5-51.1)
Monocytes % 12.3 H %
(1.7-9.3)
BUN 32 H mg/dl
(9-20)
Glucose 126 H mg/dl
(70-99)
04/10/24 08:41
04/10/24 08:41
Vital Signs
Initial and Last Documented VS:
Initial Vital Signs
Temp Pulse Resp BP Pulse Ox
97.8 F 65 18 147/74 99
04/10/24 05:47 04/10/24 05:47 04/10/24 05:47 04/10/24 05:47 04/10/24 05:47
Last Documented Vital Signs
Temp Pulse Resp BP Pulse Ox
97.8 F 67 14 144/64 99
04/10/24 05:47 04/10/24 10:37 04/10/24 10:37 04/10/24 10:37 04/10/24 10:37
<MANDA Pal - Last Filed: 04/10/24 11:19>
MDM/Problems Addressed
Differential Diagnosis Includes:
not limited to: cellulitis
MDM/Problems Addressed:
Patient as documented was seen here on 01 April for cellulitis had a negative DVT study but reports the Keflex never came to his house. He uses [facility]. He complains of persistent swelling he thinks this is slightly worse with
slightly worse redness. He denies any fevers. He presents nontoxic. He is afebrile with a normal white count. On exam it appears that he has some chronic venous insufficiency to bilateral lower extremities right leg is more swollen than the left
with more redness. Patient eval by ED physician. Since patient has not received any antibiotics will give a dose of IV antibiotics here and resend the prescription to [facility]. I did speak with [facility] he reports they did
deliver at the same day/04/01 however patient does not believe he received it. It is possible that he did not see it. I did let patient know that I will resend the prescription to [facility]. I did offer to send to local pharmacy but he
reports it is easier for him to receive it he cannot go out and get it. I did instruct him to look very closely and keep an close eye out on his mail.
Discussed the importance of taking the antibiotic as directed and close outpatient follow with PCP.
After speaking to the daughter patient does have dementia however she believes the medication came was not being given by the aide.
ED Attending Note
<MANDA Pal - Last Filed: 04/10/24 11:19>
-
Portions of this chart may have been created with voice recognition software.� Occasional wrong word or��sound alike� substitutions may have occurred due to the inherent limitations of voice recognition software.
<Olena Oviedo MD - Last Filed: 04/10/24 10:24>
ED Attending Note
Patient seen and examined by attending physician: Yes
I performed the substantive portion of visit, reviewed & personally made and approve the management plan that is documented in note by myself or MINDY.: Yes
ED Attending Note:
Patient appears nontoxic, is smiling and conversational. No acute distress. Patient has circumferential erythema and edema of his bilateral lower extremities. Right looks slightly more intensely red than left. Negative Homans' sign. Patient
denies shortness of breath. If the patient has taken Keflex prescription, I am concerned that this is an outpatient treatment failure. If the patient has not yet taken the Keflex, we will make sure he gets a dose of IV Ancef and that he is able to
have access to the Keflex. The patient tells me he adamantly would much rather go home. He denies feeling sick, denies fevers and chills.
Discharge Plan
Departure
Patient Disposition: Home (Routine Discharge)
Date of Disposition: 04/10/24
Time of Disposition: 11:15
Patient with high blood pressure during this ER visit?: Yes
Condition: Fair
Covid-19: Not Applicable
Discharge Problem:
Cellulitis
Instructions: Cellulitis (Skin Infection), Adult (DC), BLOOD PRESSURE
Prescriptions:
New
cephalexin 500 mg capsule
500 mg PO Q6H Qty: 40 0RF
No Action
ferrous sulfate [FeroSul] 325 MG tablet
325 mg PO HS
metformin 1,000 MG tablet
2,000 mg PO BID@0800,1700
gabapentin 100 MG capsule
200 mg PO DAILYPRN PRN (Reason: pain)
cyanocobalamin (vitamin B-12) 100 mcg Tablet
100 mcg PO DAILY
pravastatin 40 mg Tablet
40 mg PO HS
cholecalciferol (vitamin D3) 25 mcg (1,000 unit) Tablet
25 mcg PO DAILY
Eliquis 5 mg Tablet
5 mg PO BID Qty: 60 0RF
omeprazole 40 mg capsule,delayed release(DR/EC)
40 mg PO DAILY
alum-mag hydroxide-simeth 200-200-20 mg/5 mL Suspension
10 ml PO QID PRN (Reason: indigestion)
fludrocortisone 0.1 mg tablet
0.1 mg PO BID
sennosides-docusate sodium [Stool Softener-Stimulant Laxat] 8.6-50 mg Tablet
1 tab PO BID 15 Days Qty: 30 0RF
polyethylene glycol 3350 [Miralax] 17 gram powder in packet
17 g PO BID
digoxin 125 mcg (0.125 mg) Tablet
125 mcg PO NOON Qty: 30 0RF
midodrine 5 mg tablet
10 mg PO TID 30 Days Qty: 180 1RF
Rx Instructions:
Take 1 extra pill if feeling dizzy AND Systolic blood pressure < 100
venlafaxine 75 mg tablet
75 mg PO DAILY Qty: 30 0RF
citalopram [Celexa] 10 mg tablet
10 mg PO DAILY Qty: 30 0RF
tramadol 50 mg tablet
50 mg PO BID PRN (Reason: Pain) Qty: 14 0RF
hydrocodone-acetaminophen 5-325 mg tablet
1 tab PO Q12H PRN (Reason: Pain) Qty: 10 0RF
lidocaine 4 % adhesive patch,medicated
1 patch topical DAILY Qty: 10 0RF
oxycodone 5 mg tablet
5 mg PO Q8H PRN (Reason: Pain) Qty: 7 0RF
cephalexin 500 mg capsule
500 mg PO BID 10 Days Qty: 20 0RF
Referrals:
William Renner DO [Family Provider] -
Activity Restrictions/Additional Instructions:
Patient must take Keflex as directed . Patient must be seen by family doctor for wound check in the next several days. Return if any worsening of symptoms including fever chills increasing redness swelling.
Antibiotic was sent to patient's [facility] pharmacy
Interventions
Interventions:
*Risk Screen - Suicide Last Done: 04/10/24 05:47
*General Assessment Last Done: 04/10/24 05:47
*Neglect/Abuse Screening Last Done: 04/10/24 05:47
ED- Fall Risk Assessment Last Done: 04/10/24 08:29
*ED COVID-19 Vaccine History Last Done: 04/10/24 05:47
ED-Skin Assessment Last Done: 04/10/24 08:11
Discharge Date and Time
Print Language: [place]
[2024-04-10 08:23] VITALS: BP 158/85
[2024-04-10 09:00] VITALS: BP 142/68
[2024-04-10 09:01] LABS: % Basophils 0.2 % (0-2); % Eosinophils 0.9 % (0-6); % Immature Granulocytes 0.5 % (0-0.5); % Lymphocytes 8.5 % (20.5-51.1); % Monocytes 12.3 % (1.7-9.3); % Neutrophils 77.6 % (42.2-75.2); Absolute Eosinophils 0.1 10^3/uL (0-0.7); Absolute Lymphocytes 0.6 10^3/uL (1.2-3.4); Absolute Monocytes 0.8 10^3/uL (0.1-0.6); Absolute Neutrophils 5.1 10^3/uL (1.4-6.5); Hematocrit 39.8 % (39.0-52.0); Hemoglobin 12.7 g/dL (13.0-18.0); Mean Corp Hgb Conc. 31.9 g/dL (33.0-37.0); Mean Corpuscular Hgb 32.4 pg (27.0-31.0); Mean Corpuscular Volume 101.5 fL (80.0-94.0); Mean Platelet Volume 10.7 fL (7.4-10.4); Nucleated Red Blood Cells % 0 % (-); Platelet Count 104 10^3/uL (130-400); Red Blood Cell Count 3.92 10^6/uL (4.70-6.10); Red Cell Dist. Width 14.9 % (11.5-14.5); White Blood Cell Count 6.6 10^3/uL (4.8-10.8)
[2024-04-10 09:17] LABS: Blood Urea Nitrogen 32 mg/dl (9-20); Calcium 9.9 mg/dl (8.4-10.2); Carbon Dioxide 26 mmol/L (22-30); Chloride 106 mmol/L (98-107); Estimated Creatinine Clearance 101 ml/min; Glucose 126 mg/dl (70-99); Sodium 141 mmol/L (135-145); eGFR > 60.00
[2024-04-10] MEDS: ANCEF 5 IV (10:35)
[2024-04-10 10:37] VITALS: BP 144/64
[2024-04-10 11:00] VITALS: BP 123/63
== END 2024-04-10 12:07 | disposition home or self-care (01) ==
LOC: EMR 05:42
PROVIDERS: Nurse Practitioner; EMERGENCY PHYSICIAN Emergency Medicine; FAMILY PHYSICIAN Family Medicine
DX: L03.116 Cellulitis of left lower limb (principal); L03.115 Cellulitis of right lower limb; F03.90 Unspecified dementia, unspecified severity, without behavioral disturbance, psychotic disturbance, mood disturbance, and anxiety; E11.9 Type 2 diabetes mellitus without complications; E78.00 Pure hypercholesterolemia, unspecified; G47.30 Sleep apnea, unspecified; I11.0 Hypertensive heart disease with heart failure; I50.9 Heart failure, unspecified; I48.91 Unspecified atrial fibrillation; I25.10 Atherosclerotic heart disease of native coronary artery without angina pectoris; I69.851 Hemiplegia and hemiparesis following other cerebrovascular disease affecting right dominant side; Z87.891 Personal history of nicotine dependence; Z98.84 Bariatric surgery status; Z96.643 Presence of artificial hip joint, bilateral; Z96.651 Presence of right artificial knee joint
CPT/HCPCS: 96374; 99284; 80048; 85025; 93005

== ENCOUNTER 2024-04-12 09:38 | Emergency (ER) | payer MEDICARE, OTHER, SELFPAY ==
[2024-04-12 09:56] VITALS: BP 153/67
[2024-04-12 10:14] LABS: % Basophils 0.4 % (0-2); % Eosinophils 0.9 % (0-6); % Immature Granulocytes 0.5 % (0-0.5); % Lymphocytes 8.6 % (20.5-51.1); % Monocytes 14.4 % (1.7-9.3); % Neutrophils 75.2 % (42.2-75.2); Absolute Eosinophils 0.1 10^3/uL (0-0.7); Absolute Lymphocytes 0.5 10^3/uL (1.2-3.4); Absolute Monocytes 0.8 10^3/uL (0.1-0.6); Absolute Neutrophils 4.3 10^3/uL (1.4-6.5); Mean Corp Hgb Conc. 31.6 g/dL (33.0-37.0); Mean Corpuscular Volume 101.3 fL (80.0-94.0); Mean Platelet Volume 10.3 fL (7.4-10.4); Nucleated Red Blood Cells % 0 % (-); Platelet Count 104 10^3/uL (130-400); Red Blood Cell Count 3.75 10^6/uL (4.70-6.10); Red Cell Dist. Width 14.8 % (11.5-14.5); White Blood Cell Count 5.7 10^3/uL (4.8-10.8)
[2024-04-12 10:30] LABS: ALT (SGPT) 28 U/L (0-50); AST (SGOT) 30 U/L (17-59); Albumin 3.9 g/dl (3.5-5.0); Alkaline Phosphatase 94 U/L (38-126); Blood Urea Nitrogen 29 mg/dl (9-20); Calcium 9.5 mg/dl (8.4-10.2); Carbon Dioxide 28 mmol/L (22-30); Chloride 107 mmol/L (98-107); Glucose 136 mg/dl (70-99); Potassium 4.7 mmol/L (3.5-5.1); Sodium 145 mmol/L (135-145); Total Bilirubin 0.4 mg/dl (0.2-1.3); Total Protein 6.2 g/dl (6.3-8.2); eGFR > 60.00
--- NOTE | 2024-04-12 10:40 | ED.SKININJ ---
HPI-Injury
<Breann Roberts, PROFESSOR OF JOURNALISM - Last Filed: 04/12/24 15:54>
General
Chief Complaint: Skin Problem
Source: patient
Exam Limitations: none
Time Seen by Provider: 04/12/24 10:39
Nursing documentation reviewed up to this point in time: agreed with
History of Present Illness-Injury
Initial Injury comments:
78-year-old male presents for the third time in 11 days for the same problem.
04/01: US neg for DVT placed on Keflex
04/10: Pt denies getting the Keflex, [facility] confirmed that they delivered it to him. Didn't take Keflex rx. Given Ancef 1 G IV. Rx for Keflex represcribed.
Patient presents with his bottle of Keflex, he has taken 5 doses so far
He states his leg is no worse, but is no better.
I explained to him that it may take several days on the antibiotic for it to improve and he states he did not know that
Past History
<Breann Roberts, PROFESSOR OF JOURNALISM - Last Filed: 04/12/24 15:54>
Past History
ED Past Medical History: Arrthythmia (Atrial fibrillation), CAD, CHF, CVA (with right sided weakness), GERD, HTN, Hypercholesterolemia, NIDDM, [place], Psychiatric (Anxiety, Depression) and Other (GI bleed, GI stent, Orthostatic hypotension, Iron
deficiency anemia, Neuropathy, Sleep apnea, UTI, )
ED Past Surgical History: Cardiac (stent), Cholecystectomy, Orthopedic (Bilateral hip replacements, Left rotator cuff surgery, Right knee replacement) and Other (Gastric bypass)
Patient has exhibited threatening behavior?: No
PSI?: No
Social History
Tobacco: Former smoker
Alcohol: None
Drug: None
Personal:
Living: with family
Employment: Not employed
Family History
Family History: Other (Reviewed and Noncontributory)
Review of Systems
<Breann Roberts, PROFESSOR OF JOURNALISM - Last Filed: 04/12/24 15:54>
Review of Systems
Allergies reviewed?: Yes
All Other Systems: ROS reviewed and negative except as documented in HPI and ROS
Constitutional: Denies fever or chills
Respiratory: Denies trouble breathing
Cardiac: Denies chest pain
ABD/GI: Denies abdominal pain or nausea
Skin: Reports other (Redness right lower leg, no worse, patient states just no better)
Phy Exam
<Breann Roberts, PROFESSOR OF JOURNALISM - Last Filed: 04/12/24 15:54>
Physical Exam
Physical Exam:
GENERAL: No acute distress. A&Ox3.
CONSTITUTIONAL: Afebrile.
EYES: Clear, conjunctivae normal
ENMT: moist mucus membranes, Pharynx nl
RESPIRATORY: Regular respirations, nonlabored, lungs clear.
CARDIOVASCULAR: Regular rate and rhythm, no murmurs, no rubs.
GI: Soft, nontender
MUSCULOSKELETAL: Moves with ease. Well perfused.
SKIN: Warm, dry, pink. Right lower leg with scattered small scabs consistent with scratching, erythematous base from just below the knee to just above the ankle, no drainage, +1-2 more swollen than L lower leg. Skin is taut, appearance similar to
lymphedema. distal neurovascular intact
PSYCH: Normal mood and affect. Well kept, interactive and appropriate
NEUROLOGIC: Awake, alert and oriented. No focal neurological deficits
Course
<Breann Roberts, PROFESSOR OF JOURNALISM - Last Filed: 04/12/24 15:54>
Orders/Labs/Results
Orders:
Orders
04/12/24 10:05
Complete Blood Count/With Diff Urgent
Comprehensive Metabolic Panel Urgent
04/12/24 10:52
Clindamycin HCl [Cleocin] 300 mg PO NOW STA
Abnormal Lab Results
04/12/24
10:05
RBC 3.75 L 10^6/uL
(4.70-6.10)
Hgb 12.0 L g/dL
(13.0-18.0)
Hct 38.0 L %
(39.0-52.0)
MCV 101.3 H fL
(80.0-94.0)
MCH 32.0 H pg
(27.0-31.0)
MCHC 31.6 L g/dL
(33.0-37.0)
RDW 14.8 H %
(11.5-14.5)
Plt Count 104 L 10^3/uL
(130-400)
Absolute Lymphs (auto) 0.5 L 10^3/uL
(1.2-3.4)
Absolute Monos (auto) 0.8 H 10^3/uL
(0.1-0.6)
Lymphocytes % 8.6 L %
(20.5-51.1)
Monocytes % 14.4 H %
(1.7-9.3)
BUN 29 H mg/dl
(9-20)
Glucose 136 H mg/dl
(70-99)
Total Protein 6.2 L g/dl
(6.3-8.2)
04/12/24 10:05
04/12/24 10:05
Vital Signs
Initial and Last Documented VS:
Initial Vital Signs
Temp Pulse Resp BP Pulse Ox
98.2 F 68 16 153/67 98
04/12/24 09:56 04/12/24 09:56 04/12/24 09:56 04/12/24 09:56 04/12/24 09:56
Last Documented Vital Signs
Temp Pulse Resp BP Pulse Ox
98.2 F 68 16 153/67 98
04/12/24 09:56 04/12/24 09:56 04/12/24 09:56 04/12/24 09:56 04/12/24 09:56
<Ortega Waite, DO - Last Filed: 04/12/24 10:50>
Orders/Labs/Results
Orders:
Orders
04/12/24 10:05
Complete Blood Count/With Diff Urgent
Comprehensive Metabolic Panel Urgent
04/12/24 10:52
Clindamycin HCl [Cleocin] 300 mg PO NOW STA
Abnormal Lab Results
04/12/24
10:05
RBC 3.75 L 10^6/uL
(4.70-6.10)
Hgb 12.0 L g/dL
(13.0-18.0)
Hct 38.0 L %
(39.0-52.0)
MCV 101.3 H fL
(80.0-94.0)
MCH 32.0 H pg
(27.0-31.0)
MCHC 31.6 L g/dL
(33.0-37.0)
RDW 14.8 H %
(11.5-14.5)
Plt Count 104 L 10^3/uL
(130-400)
Absolute Lymphs (auto) 0.5 L 10^3/uL
(1.2-3.4)
Absolute Monos (auto) 0.8 H 10^3/uL
(0.1-0.6)
Lymphocytes % 8.6 L %
(20.5-51.1)
Monocytes % 14.4 H %
(1.7-9.3)
BUN 29 H mg/dl
(9-20)
Glucose 136 H mg/dl
(70-99)
Total Protein 6.2 L g/dl
(6.3-8.2)
04/12/24 10:05
04/12/24 10:05
Vital Signs
Initial and Last Documented VS:
Initial Vital Signs
Temp Pulse Resp BP Pulse Ox
98.2 F 68 16 153/67 98
04/12/24 09:56 04/12/24 09:56 04/12/24 09:56 04/12/24 09:56 04/12/24 09:56
Last Documented Vital Signs
Temp Pulse Resp BP Pulse Ox
98.2 F 68 16 153/67 98
04/12/24 09:56 04/12/24 09:56 04/12/24 09:56 04/12/24 09:56 04/12/24 09:56
<Breann Roberts, PROFESSOR OF JOURNALISM - Last Filed: 04/12/24 15:54>
MDM/Problems Addressed
MDM/Problems Addressed:
78-year-old male presents for the third time in 11 days for the same problem.
04/01: US neg for DVT placed on Keflex
04/10: Pt denies getting the Keflex, [facility] confirmed that they delivered it to him. Didn't take Keflex rx. Given Ancef 1 G IV. Rx for Keflex represcribed.
Patient presents with his bottle of Keflex, he has taken 5 doses so far
He states his leg is no worse, but is no better.
I explained to him that it may take several days on the antibiotic for it to improve and he states he did not know that
Dr. Waite and to evaluate as he saw the area at patient's initial visit better and agrees it does not look any worse.
He recommends changing patient to clindamycin.
Rx for clindamycin sent to his L so I said he needs to be admitted but there is no room [facility]. He was given his first dose here today.
Daughter called from [facility] inquiring why pt was not admitted. I explained his leg looks no worse, has no fever, systemic infectious symptoms or signs. We changed to a little broader spectrum antibiotic. He's to see his PCP in 5 days for recheck.
No indication for admission at this time. If his leg gets worse or PCP thinks he needs to be re evaluated he will be sent back in.
She states he read a possible side effect of Cephalexin is numbness and pain in the leg and that 's why he came in. I informed her that is not at all likely the cause of any numbness or tingling in the legs. She can reassure him he is on a different
antibiotic and I requested she ask him if his numbness, tingling are resolved after stopping Keflex and let PCP know. She was pleasant and appreciative of the information
<Breann Roberts, PROFESSOR OF JOURNALISM - Last Filed: 04/12/24 15:54>
*Critical Care Note
Total Time (30-74mins, 75-104mins- exclusive of procedures): Not Applicable
ED Attending Note
<Breann Roberts, PROFESSOR OF JOURNALISM - Last Filed: 04/12/24 15:54>
-
Portions of this chart may have been created with voice recognition software.� Occasional wrong word or��sound alike� substitutions may have occurred due to the inherent limitations of voice recognition software.
<Ortega Waite, DO - Last Filed: 04/12/24 10:50>
ED Attending Note
Patient seen and examined by attending physician: Yes
I performed the substantive portion of visit, reviewed & personally made and approve the management plan that is documented in note by myself or MINDY.: Yes
ED Attending Note:
I have seen and evaluated the patient with a [id number] encounter. I have spoken to the advance practicer provider and involved in the medical history, the physical exam, medical decision making.
Evaluation and management service: agree unless noted differently below.
Results interpretation: agree unless noted differently below.
Focused HPI: 78-year-old male presenting with persistent cellulitis to his right leg. He was recently started on Keflex but is concerned that it has not gotten better
Physical exam: Sitting in bed comfortably. Mild cellulitis of right leg
Medical Decision Making: Will switch Keflex to clindamycin. Will avoid Bactrim due to digoxin interaction
Discharge Plan
Departure
Patient Disposition: Home (Routine Discharge)
Date of Disposition: 04/12/24
Time of Disposition: 11:01
Patient with high blood pressure during this ER visit?: No
Condition: Good
Discharge Problem:
Cellulitis of right lower extremity
Instructions: Cellulitis (Skin Infection), Adult (DC)
Prescriptions:
New
clindamycin HCl 300 mg capsule
300 mg PO Q6H Qty: 28 0RF
Saccharomyces boulardii [Florastor] 250 mg capsule
250 mg PO BID Qty: 20 0RF
No Action
ferrous sulfate [FeroSul] 325 MG tablet
325 mg PO HS
metformin 1,000 MG tablet
2,000 mg PO BID@0800,1700
gabapentin 100 MG capsule
200 mg PO DAILYPRN PRN (Reason: pain)
cyanocobalamin (vitamin B-12) 100 mcg Tablet
100 mcg PO DAILY
pravastatin 40 mg Tablet
40 mg PO HS
cholecalciferol (vitamin D3) 25 mcg (1,000 unit) Tablet
25 mcg PO DAILY
Eliquis 5 mg Tablet
5 mg PO BID Qty: 60 0RF
omeprazole 40 mg capsule,delayed release(DR/EC)
40 mg PO DAILY
alum-mag hydroxide-simeth 200-200-20 mg/5 mL Suspension
10 ml PO QID PRN (Reason: indigestion)
fludrocortisone 0.1 mg tablet
0.1 mg PO BID
sennosides-docusate sodium [Stool Softener-Stimulant Laxat] 8.6-50 mg Tablet
1 tab PO BID 15 Days Qty: 30 0RF
polyethylene glycol 3350 [Miralax] 17 gram powder in packet
17 g PO BID
digoxin 125 mcg (0.125 mg) Tablet
125 mcg PO NOON Qty: 30 0RF
midodrine 5 mg tablet
10 mg PO TID 30 Days Qty: 180 1RF
Rx Instructions:
Take 1 extra pill if feeling dizzy AND Systolic blood pressure < 100
venlafaxine 75 mg tablet
75 mg PO DAILY Qty: 30 0RF
citalopram [Celexa] 10 mg tablet
10 mg PO DAILY Qty: 30 0RF
tramadol 50 mg tablet
50 mg PO BID PRN (Reason: Pain) Qty: 14 0RF
hydrocodone-acetaminophen 5-325 mg tablet
1 tab PO Q12H PRN (Reason: Pain) Qty: 10 0RF
lidocaine 4 % adhesive patch,medicated
1 patch topical DAILY Qty: 10 0RF
oxycodone 5 mg tablet
5 mg PO Q8H PRN (Reason: Pain) Qty: 7 0RF
cephalexin 500 mg capsule
500 mg PO BID 10 Days Qty: 20 0RF
cephalexin 500 mg capsule
500 mg PO Q6H Qty: 40 0RF
Referrals:
William Renner, DO [Family Provider] - Follow up in 5-7 days
Activity Restrictions/Additional Instructions:
As we discussed, STOP the Keflex.
Start the Clindamycin in 6 hours as you were given a dose here today.
I sent a prescription to your [facility] pharmacy.
Call your doctor's office today and make appointment for Wednesday for a checkup to see how the leg is doing.
Rest with your foot elevated to the level of your heart as much as you can in the next 2 days.
I sent a prescription for a Probiotic to your pharmacy to take twice daily while you are on an antibiotic to avoid diarrhea
Eating yogurt daily may also help
Interventions
Interventions:
*Risk Screen - Suicide Last Done: 04/12/24 09:56
*General Assessment Last Done: 04/12/24 11:34
*Neglect/Abuse Screening Last Done: 04/12/24 09:56
ED- Fall Risk Assessment Last Done: 12/11/24 10:50
*Nursing Disposition Last Done: 04/12/24 11:34
ED-Skin Assessment Last Done: 04/12/24 10:50
Discharge Date and Time
Discharge Date/Time: 04/12/24 12:26
Print Language: SPANISH
[2024-04-12] MEDS: CLEOCIN 300 MG PO (11:23)
== END 2024-04-12 12:26 | disposition home or self-care (01) ==
LOC: EMR 09:38
PROVIDERS: Emergency Medicine; EMERGENCY PHYSICIAN Student in an Organized Health Care Education/Training Program; FAMILY PHYSICIAN Family Medicine
DX: L03.115 Cellulitis of right lower limb (principal); E11.9 Type 2 diabetes mellitus without complications; E78.00 Pure hypercholesterolemia, unspecified; G47.30 Sleep apnea, unspecified; I11.0 Hypertensive heart disease with heart failure; I50.9 Heart failure, unspecified; I25.10 Atherosclerotic heart disease of native coronary artery without angina pectoris; I48.91 Unspecified atrial fibrillation; K21.9 Gastro-esophageal reflux disease without esophagitis; Z87.891 Personal history of nicotine dependence; Z98.84 Bariatric surgery status; I69.951 Hemiplegia and hemiparesis following unspecified cerebrovascular disease affecting right dominant side
CPT/HCPCS: 99283; 80053; 85025

== ENCOUNTER 2024-04-15 05:32 | Inpatient (IN) | payer MEDICARE, OTHER, SELFPAY ==
[2024-04-15] VITALS (10 sets, daily range): BP systolic 126–163; BP diastolic 69–102; PULSE 59–65; O2SAT 99; BMI 31.1; BMI 32.5
--- NOTE | 2024-04-15 03:05 | ED.GENMED ---
History of Present Illness
General
Chief Complaint: Swelling
Source: patient and records
Time Seen by Provider: 04/15/24 02:52
History of Present Illness
History of Present Illness:
This patient is an 78-year-old male presents emergency department with complaints of right leg pain that he says has been present for some time� Meaning weeks. He states he has been here in the emergency department for, but 'they did not do
anything', and he came in tonight because the pain and swelling seems to be getting worse. He denies fever, chills, nausea, vomiting, chest pain, shortness of breath, abdominal pain, new numbness. Patient walks with a walker and still able to do
so. Of note, patient has multiple skin tears especially around his right upper extremity which he is unaware of how this happened. He denies any specific trauma. He has not seen his primary care doctor throughout this illness. He was first seen
04/01 and ultrasound negative of his lower extremity. Seen again April 10 and again April 12. At that time the Keflex was changed to clindamycin..
Past History
Past History
ED Past Medical History: Arrthythmia (Atrial fibrillation), CAD, CHF, CVA (with right sided weakness), GERD, HTN, Hypercholesterolemia, NIDDM, [place], Psychiatric (Anxiety, Depression) and Other (GI bleed, GI stent, Orthostatic hypotension, Iron
deficiency anemia, Neuropathy, Sleep apnea, UTI, )
ED Past Surgical History: Cardiac (stent), Cholecystectomy, Orthopedic (Bilateral hip replacements, Left rotator cuff surgery, Right knee replacement) and Other (Gastric bypass)
Patient has exhibited threatening behavior?: No
PSI?: No
Social History
Tobacco: Former smoker
Alcohol: None
Drug: None
Personal:
Living: with family
Employment: Not employed
Family History
Family History: Other (Reviewed and Noncontributory)
Phy Exam
Physical Exam
Physical Exam:
GENERAL: Alert , in no apparent distress
EYE: pupils equal and reactive
NECK: Supple, no significant adenopathy.
ENT: o/p clr, mmm.
CARDIAC: Regular rate and rhythm .
LUNGS: Clear breath sounds bilaterally, no acute respiratory distress, no wheezes/rales/rhonchi
ABDOMEN: Soft, without focal tenderness, no r/g, no cvat
NEUROLOGICAL: Alert and oriented, no focal neuro deficits
SKIN: Warm and dry, multiple skin tears noted with wound dressing applied in the right upper extremity without associated deformity, bony tenderness, or limitation of range of motion. Patient also has dried scabs noted at the right lower extremity
inferior to the knee and extending to the dorsal foot area with associated redness and warmth. No fluctuance, crepitus, drainage. Range of motion of lower extremities preserved. Edema is symmetrical and 2+ bilaterally
MUSCULOSKELETAL: 2+ edema, well perfused.
PSYCH: Normal and appropriate interaction.
Scores
Heart Failure Risk
Heart Failure Risk Score: Not Applicable
Course
Orders/Labs/Results
Orders:
Orders
04/15/24 03:17
Complete Blood Count/No Diff Urgent
Comprehensive Metabolic Panel Urgent
Glycohemoglobin (HgbA1c) Urgent
PTT Urgent
Prothrombin Time Urgent
04/15/24 04:21
CeFAZolin 2 GRAM [Ancef] 2 grams in 10 ml IV NOW
04/15/24 04:42
Tramadol HCl [Ultram] 50 mg PO NOW STA
04/15/24 05:17
Admit/Transfer Patient As Directed
Co-Sign Provider:
Level of Care: Inpatient admission
Assign to:: Medical/Surgical
Physician / Group: Julia
Diagnosis: RLE Cellulitis
Reason for Hospitalization: RLE Cellulitis
Expected length of stay greater than two midnights?: Yes
ELOS- Estimated Length of Stay in days: 3
I certify the patient meets the requirements for IP care: Yes
PRN Pain Medication Management As Directed
May give lesser potent ordered pain med per pt: Yes
preference::
Protocol:: Medication orders for pain may be administered in a
manner that supports deferring to patient preference
when the pt is:
- Requesting an ordered lesser potent pain medication.
Least to most potent pain medications are defined
as: acetaminophen < NSAID < tramadol < opioids
(morphine, oxycodone, hydromorphone).
- Requesting a lesser dose of the same medication IF
ORDERED.
- Requesting a less intrusive route of administration
if both routes are prescribed by the provider (PO <
IV).
04/15/24 05:19
Code Status As Directed
Resuscitation Status: Full Code
04/15/24 05:35
Acetaminophen [Tylenol] 650 mg PO Q4HPRN PRN
Dextrose 50%-Water [Dextrose 50% Syringe] 12.5 grams IV [id number] PRN
Glucagon [GlucaGen] 1 mg IM PRN PRN
04/15/24 05:35
WOUND/OSTOMY CONSULT Routine
Reason for Consult: R Foot / RUE wounds
Activity As Directed
Activity Level: Ambulate
With Assistance
Bedside Glucose Monitoring As Directed
Frequency: AC&HS
Additional Instructions:: Change to q6h if pt on TPN, tube feeding or not eating
Bladder Scan As Directed
Follow Bladder Retention/Intermittent Cath Algorithm?: Yes
PRN if no void in __ hours: 6
Frequency: Per Retention Algorithm
If Bladder Scan Result >: 400
then:: Straight cath
I/O [Intake/ Output] As Directed
Frequency: Per unit guidelines
Orthostatic Vital Signs As Directed
Orthostatic VS Frequency: BID
Straight Cath As Directed
Frequency: Per Retention Algorithm
Additional Instructions: straight cath as needed per acute urinary retention algorithm for 24 hrs
Additional Instructions: for bladder scan greater than 400 mL
Vital Signs As Directed
Frequency: Per unit guidelines
Weight As Directed
Frequency: Daily
Cpap [RESP] Routine
Patient to use own unit?: No
Set Pressure (cm H2O): 8
Instructions: HS and PRN.
Titrate for comfort. Patient does not know settings.
Oxygen Therapy [O2 Therapy] [RESP] Routine
Titrate/Wean O2 to maintain O2 sat greater than (%): 94
Ot Eval And Treat Routine
PT Consult [Pt Eval And Treat] Routine
Activity Level: Ambulate
With Assistance
04/15/24 Breakfast
2000 calorie (17 carb) Diabetic
At Your Request: Limited Participation
Does patient need a safe tray?: No
0.9% Sodium Chloride 500 ml [Nss] 500 ml IV 80 mls/hr
04/15/24 07:30
Insulin Aspart Corrective Low [Novolog Flexpen-Low Resistance] See Protocol SC AC
04/15/24 08:00
Apixaban [Eliquis] 5 mg PO BID
04/15/24 14:00
CeFAZolin 2 GRAM [Ancef] 2 grams in 10 ml IV Q8H
Abnormal Lab Results
04/15/24
03:17
RBC 3.73 L 10^6/uL
(4.70-6.10)
Hgb 11.8 L g/dL
(13.0-18.0)
Hct 37.3 L %
(39.0-52.0)
MCV 100.0 H fL
(80.0-94.0)
MCH 31.6 H pg
(27.0-31.0)
MCHC 31.6 L g/dL
(33.0-37.0)
RDW 14.9 H %
(11.5-14.5)
Plt Count 113 L 10^3/uL
(130-400)
PT 14.8 H Sec
(11.4-14.6)
BUN 30 H mg/dl
(9-20)
Glucose 116 H mg/dl
(70-99)
Hemoglobin A1c 5.8 H %
(4.0-5.6)
Total Protein 6.2 L g/dl
(6.3-8.2)
04/15/24 03:17
04/15/24 03:17
Vital Signs
Initial and Last Documented VS:
Initial Vital Signs
Temp Pulse Resp BP Pulse Ox
98.3 F 65 20 153/78 100
04/15/24 02:27 04/15/24 02:27 04/15/24 02:27 04/15/24 02:27 04/15/24 02:27
Last Documented Vital Signs
Temp Pulse Resp BP Pulse Ox
98 F 59 29 135/72 99
04/18/24 07:39 04/18/24 07:39 04/18/24 07:39 04/18/24 07:39 04/18/24 07:39
*Critical Care Note
Total Time (30-74mins, 75-104mins- exclusive of procedures): Not Applicable
Update Note
Update Note:
Patient presents to the Emergency Department with __right leg pain and swelling
Number and Complexity of Problems Addressed at the Encounter
� Chronic conditions affecting care:
� Acute Exacerbation and/or Progression of Chronic Illness:
� Differential Diagnosis includes: But not limited to worsening cellulitis, heart failure, vascular insufficiency, DVT, etc.
Amount and/or Complexity of Data to be Reviewed and Analyzed
� I performed an independent evaluation of and my interpretation is:
EKG:
CT:
Xrays:
Laboratory Studies:
Other:
� Review of other/old records reveals: Ultrasound April 01 negative for DVT
� Clinical information was obtained by an independent historian:
� Prescriptions/Medications Considered but not given:
� Further testing considered but not performed:
Risk of Complications and/or Morbidity or Mortality of Patient Management
� Social determinants of health affecting care:
� Discussion with other providers (PCP, Hospitalists, Consultants, etc):
� Escalation of care including admission/observation vs risk of discharge considered:
ED Attending Note
-
Portions of this chart may have been created with voice recognition software.� Occasional wrong word or��sound alike� substitutions may have occurred due to the inherent limitations of voice recognition software.
Discharge Plan
Departure
Patient Disposition: Admit
Admit to: Med/Surg
Admit to doctor: julia
Presentation/result/management discussed w/ accepting MD/DO: Hospitalist
Discharge Problem:
Cellulitis
Interventions
Interventions:
*Risk Screen - Suicide Last Done: 04/15/24 03:07
*General Assessment Last Done: 04/15/24 03:07
*Neglect/Abuse Screening Last Done: 04/15/24 02:31
ED- Fall Risk Assessment Last Done: 04/15/24 03:50
*ED COVID-19 Vaccine History Last Done: 04/15/24 02:27
*Nursing Disposition Last Done: 04/15/24 14:55
ED- Cardiac Assessment Last Done: 04/15/24 08:50
ED- Pulmonary Assessment Last Done: 04/15/24 11:25
ED-Skin Assessment Last Done: 04/15/24 08:50
Discharge Date and Time
Discharge Date/Time: 04/15/24 14:55
[2024-04-15 03:41] LABS: Hematocrit 37.3 % (39.0-52.0); Hemoglobin 11.8 g/dL (13.0-18.0); Mean Corp Hgb Conc. 31.6 g/dL (33.0-37.0); Mean Corpuscular Hgb 31.6 pg (27.0-31.0); Mean Platelet Volume 10.2 fL (7.4-10.4); Platelet Count 113 10^3/uL (130-400); Red Blood Cell Count 3.73 10^6/uL (4.70-6.10); Red Cell Dist. Width 14.9 % (11.5-14.5); White Blood Cell Count 6.7 10^3/uL (4.8-10.8)
[2024-04-15 03:43] LABS: APTT 29.1 Sec (23.4-35.0); INR 1.13; PT 14.8 Sec (11.4-14.6)
[2024-04-15 04:04] LABS: ALT (SGPT) 31 U/L (0-50); AST (SGOT) 28 U/L (17-59); Albumin 3.8 g/dl (3.5-5.0); Alkaline Phosphatase 91 U/L (38-126); Blood Urea Nitrogen 30 mg/dl (9-20); Calcium 9.4 mg/dl (8.4-10.2); Carbon Dioxide 29 mmol/L (22-30); Chloride 105 mmol/L (98-107); Estimated Creatinine Clearance 87 ml/min; Glucose 116 mg/dl (70-99); Potassium 4.3 mmol/L (3.5-5.1); Sodium 143 mmol/L (135-145); Total Bilirubin 0.4 mg/dl (0.2-1.3); Total Protein 6.2 g/dl (6.3-8.2); eGFR > 60.00
--- NOTE | 2024-04-15 04:12 | EDRN ---
Pt says he came to the ED because the pain and swelling in his RLE are worse. Pt was seen in this ED most recently 3 days ago for same complaint at which time he was switched from keflex to clindamycin. When asked what was done, pt says 'nothing
at all.' Pt uses a walker without issue and denies falls and recent trauma. Pt denies cp, sob, abd pain, fever/chills/cough, n/v, urinary symptoms. This RN reviewed pt's medication list with him and he admitted he stopped taking his medications
'awhile ago.' Most clarification pt provided was 'weeks.' This RN reviewed each medication and discovered pt is taking a few medications, specifically eliquis and the clindamycin. Discussed importance of notifying the doctors that prescribe him
medications that he is not taking them. Pt admitted 'I was probably foolish to do that.' Pt had soiled bandaids on most of the skin tears on his R arm. Pt does not know how they occurred 'I'm on a blood thinner.' Pt removed most of the bandaids
- two remain intact and are not soiled. This RN cleaned the skin tears, applied abx ointment, non adherent dressing and wrapped in jenn. Pt assisted with changing into new gown since there was blood on R side of his gown. Discussed importance of
keeping wounds clean and dressed with non adherent dressings and to change them regularly. Advised against using bandaids as they can tear his skin more. Pt lives at home with his who helps him dress wounds. Pt says he sits on the couch at
home and elevates his leg on it to help with the swelling.
[2024-04-15] MEDS: ULTRAM 50 MG PO ×2 (04:47→19:54)
[2024-04-15] MEDS: ANCEF 10 IV ×2 (04:52→16:55)
--- NOTE | 2024-04-15 05:22 | HPS.HSE ---
Family Physician
-
Family Physician: William Renner
Chief Complaint
-
RLE pain, swelling and redness
History of Present Illness
Patient is an 78y M with PMH significant for A-Fib, hypertension and dementia who presents to ED complaining of RLE pain, swelling and redness x several weeks. Patient has been evaluated in the ED here on 04/01, 04/10 and 04/12 for the same
complaint. He was originally prescribed Keflex - though he stated that he never received the Rx. He was changed to clindamycin on 04/12. Patient states that his symptoms have not improved despite this.
He denies any systemic complaints such as fevers, chills, N/V/D, etc.
Patient denies any fall, injury or trauma - although he is noted to be covered in scattered ecchymoses and skin tears - mostly on the R.
Patient has known dementia and has an aide x several hours daily.
Medical History
Past Medical History
Past Medical History: Reports Other (gastric bypass, choledocholithiasiswith LAMS stent, history of GI bleeding from stent irritation/erosion, GERD, HFpEF, paroxysmal atrial fibrillation, cognitive impairment, CVA, hyperlipidemia, chronic right foot
drop, orthostatic hypotension, hypertension, diabetes, anxiety/depression, superficial )
Past Surgical History: Reports Other (Cholecystectomy, Orthopedic and Other (Gastric bypass) , EDGE procedure done at [place] in April 2023 for choledocholithiasis and had Axios stent placement at that time.)
Social History
Tobacco: Former Smoker (Quit smoking about 30 years ago. Approx 30 pack years total use.)
Alcohol: Occasional
Drug: None
Family History
Family History: Not pertinent
Allergies / Home Medications
Allergies reflects when Allergies were last updated in [employer].
Home Medications with original date entered in [employer]
Allergy/Medication List:
Unable to confirm / clarify medications.
Current med list does not match with recent outpatient med list (04/03/24) or prior discharge med list (07/2023).
If medication reconciliation has not been performed, why?: Medication List N/A
Review of Systems
-
History Source: Patient
A 12 point ROS was completed and negative except as noted: Yes
Constitutional: Denies Fever or Chills
Respiratory: Denies Cough or Trouble Breathing
Cardiac: Denies Chest Pain or Palpitations
Abdomen/GI: Denies Abdominal Pain, Nausea, Vomiting or Diarrhea
: Denies Dysuria or Frequency
Musculoskeletal: Reports Edema; Denies Joint Pain
Skin: Reports Other (Redness, pain, swelling.)
Neurological: Denies Dizzy or Headache
Psych: Denies Depression or Anxiety
Physical Exam
Vital Signs
Vital Signs
Temp Pulse Resp BP Pulse Ox
98.3 F 58 16 135/79 98
04/15/24 02:27 04/15/24 03:48 04/15/24 03:48 04/15/24 03:48 04/15/24 03:48
Physical Exam
General: Other (78y M in no acute distress.)
HEENT: PERRLA and Other (Dry MM. )
Respiratory: Clear; No Wheezes, Rales or Rhonchi
Cardiac: S1/S2, Regular Rhythm and Murmur (II/ MICHAEL)
GI: Soft, Non Tender, Non Distended and Normal Bowel Sounds
Musculoskeletal: No Clubbing, No Cyanosis and Other (2+ pitting edema of the RLE. Erythema and increased warmth from the knee through the toes. Superficial breakdown over digits 2 and 3. Shallow ulceration over dorsum of the foot. Scattered
excorations - especially laterally.)
Skin: Other (Multiple skin tears on arms - R > > L.)
Neuro: Awake, Alert and Nonfocal/grossly intact
Laboratory Results
-
04/15/24 03:17
04/15/24 03:17
Laboratory Results
PT 14.8 Sec (11.4-14.6) H 04/15/24 03:17
INR 1.13 04/15/24 03:17
APTT 29.1 Sec (23.4-35.0) 04/15/24 03:17
Total Bilirubin 0.4 mg/dl (0.2-1.3) 04/15/24 03:17
AST 28 U/L (17-59) 04/15/24 03:17
ALT 31 U/L (0-50) 04/15/24 03:17
Alkaline Phosphatase 91 U/L (38-126) 04/15/24 03:17
Impression/Plan
-
A/P: Patient is an 78y M with PMH significant for hypertension, DM-II and dementia who presents to ED complaining of RLE pain, swelling and redness x several weeks.
RLE Cellulitis
- Admit for further evaluation and treatment.
- Failure of outpatient therapy - whether secondary to medication failure or compliance failure.
- IV cephalexin for now and follow for clinical improvement.
- Wound Care evaluation for multiple, superficial wounds of the leg and arm.
- Follow temperature curve.
- Follow for clinical improvement.
- US done during initial visit (04/01) was negative for DVT.
Senile Dementia
- Patient awake and alert and interactive. Answers questions without obvious confusion.
- ? compliance with med regimen - specifically recent abx as he did not recall receiving initial Rx.
- Monitor for any acute confusion / delirium during hospital stay.
ASCVD
Benign Hypertension
- Stable. Denies CP / SOB / etc.
- Need formal med rec in AM and resume usual meds once completed.
Paroxysmal Atrial Fibrillation
- Unclear what his current med regimen is.
- Will continue Eliquis for stroke risk reduction - though may wish to revisit risk / benefit profile if patient is falling frequently at home.
- Resume any rate controlling meds (? dig) following formal med rec in the AM.
DM-II
- Stable. Patient states he is on no meds for DM - and seems rather certain of this.
- Recent OP visit (04/03) notes that he is on metformin BID.
- Follow glucose for now and cover with SSI as needed.
- Update A1C.
BETSEY
- Stable. Continue nightly PAP therapy.
BPH
- Bladder scan protocol.
Orthostatic Hypotension
- Based on prior hospitalization.
- Previously on Florinef and midodrine.
- No comment on this in recent PCP visit / PE.
- Follow-up formal med rec in AM as noted.
- Follow orthostatic signs.
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
Ambulatory Dysfunction secondary to the above
- ? if chronic foot drop / poor compliance with brace / boot is contributing to R foot scrapes / abrasions and cellulitis?
- PT / OT evals as noted above.
Chronic Thrombocytopenia
- Stable / platelet values unchanged from prior.
- No evidence of active bleeding.
- Follow for any obvious bleeding or significant changes in cell counts.
DVT Prophylaxis: On Eliquis
Code Status: Full
--- NOTE | 2024-04-15 06:02 | EDRN ---
Called pharmacy to verify admission orders
[2024-04-15] MEDS: NSS 500 IV ×2 (06:17→13:11)
[2024-04-15] MEDS: ELIQUIS 5 MG PO ×2 (08:02→19:54)
--- NOTE | 2024-04-15 08:06 | EDRN ---
Pt OOB to [facility] and now looking at menu to order a diet.
--- NOTE | 2024-04-15 08:15 | EDRN ---
Pt ordering a breakfast tray at this time.
[2024-04-15 08:47] LABS: Glycohemoglobin (HgbA1c) 5.8 % (4.0-5.6)
--- NOTE | 2024-04-15 09:20 | EDRN ---
Dr. Perkins in to see pt at this time.
--- NOTE | 2024-04-15 09:22 | W.PN.HOSP.TC ---
Today's Communication/Plan
-
Antibiotics
Arterial ultrasound
Assessment / Plan
Assessment / Plan
Impression:
Right lower extremity cellulitis/chronic right dorsal foot wound, superficial
Other conditions:
ASCVD
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
Ambulatory dysfunction, walker dependent.
Benign hypertension.
Paroxysmal atrial fibrillation
Anticoagulation with Eliquis
Diabetes type 2 diet controlled.
Orthostatic hypotension.
Chronic thrombocytopenia.
BPH
Plan:
Right lower extremity cellulitis.
Foot warm appearing. Chronic right foot drop. 3+ edema was not able to palpate pulses.
No systemic symptoms of infection.
Normal white count.
Recent lower extremity Doppler negative for DVT.
Check arterial ultrasound: OLIVIA PVR.
Continue cefazolin.
Follow clinical improvement.
Senile Dementia
- Patient awake and alert and interactive. Answers questions without obvious confusion.
- ? compliance with med regimen - specifically recent abx as he did not recall receiving initial Rx.
- Monitor for any acute confusion / delirium during hospital stay.
ASCVD
Benign Hypertension
- Stable. Denies CP / SOB / etc.
- Need formal med rec in AM and resume usual meds once completed.
Paroxysmal atrial fibrillation per
Currently not on any antiarrhythmics or AV ish blocking agents.
ECG with A-fib rate and 50s.
Monitor on telemetry
Continue anticoagulation for thromboembolic prophylaxis. On Eliquis.
Diabetes type 2.
Hemoglobin A1c 5.8.
Not on any glucose lowering medications prior to presentation.
Formally on metformin
Continue basal bolus protocol.
Serial Accu-Cheks per
BETSEY
- Stable. Continue nightly PAP therapy.
BPH
- Bladder scan protocol.
Orthostatic Hypotension
- Based on prior hospitalization.
- Previously on Florinef and midodrine.
- No comment on this in recent PCP visit / PE.
- Follow-up formal med rec in AM as noted.
- Follow orthostatic signs.
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
Ambulatory Dysfunction secondary to the above
- ? if chronic foot drop / poor compliance with brace / boot is contributing to R foot scrapes / abrasions and cellulitis?
- PT / OT evals as noted above.
Chronic Thrombocytopenia
- Stable / platelet values unchanged from prior.
- No evidence of active bleeding.
- Follow for any obvious bleeding or significant changes in cell counts.
DVT Prophylaxis: On Eliquis
Code Status: Full
Anticipated Discharge: 24 - 48 hours
Subjective/Interval History
-
Date of Service: April 15, 2024
Objective Data
-
Labs:
Laboratory Results
04/15/24 04/15/24
03:17 06:00
WBC 6.7 Cancelled
Hgb 11.8 L Cancelled
Hct 37.3 L Cancelled
Plt Count 113 L Cancelled
PT 14.8 H
INR 1.13
APTT 29.1
Sodium 143 Cancelled
Potassium 4.3 Cancelled
Chloride 105 Cancelled
Carbon Dioxide 29 Cancelled
BUN 30 H Cancelled
Creatinine 0.8 Cancelled
Glucose 116 H Cancelled
Calcium 9.4 Cancelled
Total Bilirubin 0.4
AST 28
ALT 31
Alkaline Phosphatase 91
Vital Signs:
Vital Signs
Temp Pulse Resp BP Pulse Ox
98.3 F 58 16 152/77 99
04/15/24 02:27 04/15/24 05:55 04/15/24 05:55 04/15/24 05:55 04/15/24 05:55
Physical Exam
-
General: Negative Appears in Distress
HEENT: Negative Oxygen
Respiratory: Clear to Auscultation
Cardiac: S1/S2 and Irregular Rhythm; Negative Murmur
Musculoskeletal: No Edema and Other (Bilateral lower extremity erythema with induration. Right foot with superficial wound and scab, warm)
Neuro: Awake, Alert, Oriented and No Motor Deficits
[2024-04-15 09:24] LABS: Glucose - Point of Care 155 mg/dl (70-99)
--- NOTE | 2024-04-15 09:26 | EDRN ---
Pharmacy called to send Novolog flexpen. Pt is now eating breakfast at this time.
[2024-04-15] MEDS: NOVOLOG FLEXPEN-LOW RESISTANCE 1 UNITS SC (09:42)
--- NOTE | 2024-04-15 11:25 | EDRN ---
Pt complained of feeling SOB saying he could not get a deep breath type of feeling. Pt was assessed w/ vital signs at this time and lung sounds. Pt speaking on cell phone w/out difficulty to his daughter at the time and lung sounds clear. resps
unlabored at 16 bpm, HR 57, POX 97%
--- NOTE | 2024-04-15 11:33 | EDRN ---
This RN TT'd Dr. Perkins about pt's symptoms at this time-- Pt states he is having SOB, difficulty getting a good breath at this time. Lungs clear, POX 99% on RA. VSS 153/102. 57 16 99%. Pt speaking on Cell phone w/out difficulty.
[2024-04-15] MEDS: TYLENOL 650 MG PO (12:02)
[2024-04-15 13:17] LABS: Glucose - Point of Care 148 mg/dl (70-99)
[2024-04-15] MEDS: NOVOLOG FLEXPEN-LOW RESISTANCE SC ×2 (13:30→16:54)
--- NOTE | 2024-04-15 13:34 | EDRN ---
At pt's request Dr. Perkins informed that pt wanted to see his MD about his SOB. Dr. Perkins saw pt and said to watch him.
--- NOTE | 2024-04-15 14:00 | EDRN ---
Physical Therapy in to see pt at this itme.
--- NOTE | 2024-04-15 14:29 | EDRN ---
Pt eating his lunch at this time.
[2024-04-15 16:51] LABS: Glucose - Point of Care 142 mg/dl (70-99)
[2024-04-15 21:10] LABS: Glucose - Point of Care 120 mg/dl (70-99)
[2024-04-16] MEDS: ANCEF 10 IV ×4 (00:32→23:37)
[2024-04-16] MEDS: NSS 500 IV ×2 (00:32→13:57)
[2024-04-16] MEDS: TYLENOL 650 MG PO (00:34)
[2024-04-16 04:58] VITALS: BMI 32.6
[2024-04-16 07:05] VITALS: BP 138/76; BP 145/75; PULSE 60; PULSE 73
[2024-04-16 07:14] LABS: % Basophils 0.4 % (0-2); % Eosinophils 0.9 % (0-6); % Immature Granulocytes 0.5 % (0-0.5); % Lymphocytes 8.1 % (20.5-51.1); % Monocytes 13.3 % (1.7-9.3); % Neutrophils 76.8 % (42.2-75.2); Absolute Eosinophils 0.1 10^3/uL (0-0.7); Absolute Lymphocytes 0.5 10^3/uL (1.2-3.4); Absolute Monocytes 0.7 10^3/uL (0.1-0.6); Absolute Neutrophils 4.3 10^3/uL (1.4-6.5); Hematocrit 37.1 % (39.0-52.0); Hemoglobin 11.6 g/dL (13.0-18.0); Mean Corp Hgb Conc. 31.3 g/dL (33.0-37.0); Mean Corpuscular Hgb 31.9 pg (27.0-31.0); Mean Corpuscular Volume 101.9 fL (80.0-94.0); Mean Platelet Volume 10.7 fL (7.4-10.4); Nucleated Red Blood Cells % 0 % (-); Platelet Count 93 10^3/uL (130-400); Red Blood Cell Count 3.64 10^6/uL (4.70-6.10); Red Cell Dist. Width 14.7 % (11.5-14.5); White Blood Cell Count 5.6 10^3/uL (4.8-10.8)
[2024-04-16 07:14] LABS: Glucose - Point of Care 115 mg/dl (70-99)
[2024-04-16 07:15] LABS: Blood Urea Nitrogen 24 mg/dl (9-20); Calcium 8.9 mg/dl (8.4-10.2); Carbon Dioxide 23 mmol/L (22-30); Chloride 107 mmol/L (98-107); Estimated Creatinine Clearance 89 ml/min; Glucose 124 mg/dl (70-99); Potassium 4.4 mmol/L (3.5-5.1); Sodium 140 mmol/L (135-145); eGFR > 60.00
[2024-04-16] MEDS: NOVOLOG FLEXPEN-LOW RESISTANCE SC ×3 (08:09→17:06)
[2024-04-16] MEDS: ELIQUIS 5 MG PO ×2 (08:10→19:47)
[2024-04-16 11:43] LABS: Glucose - Point of Care 147 mg/dl (70-99)
--- NOTE | 2024-04-16 13:55 | W.PN.HOSP.TC ---
Today's Communication/Plan
-
Right foot with no significant improvement on IV antibiotics with persistent erythema and induration. No fluctuance.
OLIVIA PVR pending
Will ask for MRI to rule out deep soft tissue collection/abscess
Continue current antibiotics per
Assessment / Plan
Assessment / Plan
Impression:
Right lower extremity cellulitis/chronic right dorsal foot wound, superficial
Other conditions:
ASCVD
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
Ambulatory dysfunction, walker dependent.
Benign hypertension.
Paroxysmal atrial fibrillation
Anticoagulation with Eliquis
Diabetes type 2 diet controlled.
Orthostatic hypotension.
Chronic thrombocytopenia.
BPH
Plan:
Right lower extremity cellulitis.
Foot warm appearing. Chronic right foot drop. 3+ edema was not able to palpate pulses.
No systemic symptoms of infection.
Normal white count.
Recent lower extremity Doppler negative for DVT.
Check arterial ultrasound: OLIVIA PVR.
Continue cefazolin.
Follow clinical improvement.
Senile Dementia
- Patient awake and alert and interactive. Answers questions without obvious confusion.
- ? compliance with med regimen - specifically recent abx as he did not recall receiving initial Rx.
- Monitor for any acute confusion / delirium during hospital stay.
ASCVD
Benign Hypertension
- Stable. Denies CP / SOB / etc.
- Need formal med rec in AM and resume usual meds once completed.
Paroxysmal atrial fibrillation per
Currently not on any antiarrhythmics or AV ish blocking agents.
ECG with A-fib rate and 50s.
Monitor on telemetry
Continue anticoagulation for thromboembolic prophylaxis. On Eliquis.
Diabetes type 2.
Hemoglobin A1c 5.8.
Not on any glucose lowering medications prior to presentation.
Formally on metformin
Continue basal bolus protocol.
Serial Accu-Cheks per
BETSEY
- Stable. Continue nightly PAP therapy.
BPH
- Bladder scan protocol.
Orthostatic Hypotension
- Based on prior hospitalization.
- Previously on Florinef and midodrine.
- No comment on this in recent PCP visit / PE.
- Follow-up formal med rec in AM as noted.
- Follow orthostatic signs.
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
Ambulatory Dysfunction secondary to the above
- ? if chronic foot drop / poor compliance with brace / boot is contributing to R foot scrapes / abrasions and cellulitis?
- PT / OT evals as noted above.
Chronic Thrombocytopenia
- Stable / platelet values unchanged from prior.
- No evidence of active bleeding.
- Follow for any obvious bleeding or significant changes in cell counts.
DVT Prophylaxis: On Eliquis
Code Status: Full
Anticipated Discharge: 24 - 48 hours
Subjective/Interval History
-
Date of Service: April 16, 2024
Objective Data
-
Labs:
Laboratory Results
04/16/24
06:28
WBC 5.6
Hgb 11.6 L
Hct 37.1 L
Plt Count 93 L
Sodium 140
Potassium 4.4
Chloride 107
Carbon Dioxide 23
BUN 24 H
Creatinine 0.8
Glucose 124 H
Calcium 8.9
Vital Signs:
Vital Signs
Temp Pulse Resp BP Pulse Ox
98.3 F 60 20 145/75 100
04/16/24 07:05 04/16/24 07:05 04/16/24 07:05 04/16/24 07:05 04/16/24 08:10
I&O
04/15/24 04/16/24 04/17/24
06:59 06:59 06:59
Intake Total 240 / 240 840 / 840
Balance 240 / 240 840 / 840
Physical Exam
-
General: Negative Appears in Distress
HEENT: Negative Oxygen
Respiratory: Clear to Auscultation
Cardiac: S1/S2 and Irregular Rhythm; Negative Murmur
Musculoskeletal: No Edema and Other (Bilateral lower extremity erythema with induration. Right foot with superficial wound and scab, warm)
Neuro: Awake, Alert, Oriented and No Motor Deficits
--- NOTE | 2024-04-16 14:28 | CM ---
Pt seen bedside. Pt lives w/ spouse in a 1st flr apartment- 1 step to enter building
Pt is independent w/ walker. Pt states he has grab bars in the bathroom, no other DME identified.
Pt stated he was at [facility] in [place], cannot recall the name
Pt stated he has had [facility] in the past and was satisfied w/ the team
Address, point of contact and insurance verified
PCP: Dr. William Renner
Pharmacy: [facility]
Currently on IV abx
PT/OT recommending HH at d/c
Plan: Home w/ HH
[2024-04-16 15:01] VITALS: BP 166/91
[2024-04-16 15:51] VITALS: BP 145/72; PULSE 57; O2SAT 98
[2024-04-16] MEDS: NSS IV (16:23)
[2024-04-16 17:01] LABS: Glucose - Point of Care 129 mg/dl (70-99)
[2024-04-16] MEDS: ULTRAM 50 MG PO (20:00)
[2024-04-16 21:21] LABS: Glucose - Point of Care 117 mg/dl (70-99)
[2024-04-16 22:55] VITALS: BP 136/84; BP 148/80; PULSE 55; PULSE 58
[2024-04-17] MEDS: NSS 500 IV (03:13)
[2024-04-17 04:27] VITALS: BMI 32.6
[2024-04-17 07:10] VITALS: BP 112/58; BP 118/58; BP 125/56; PULSE 63; PULSE 67; PULSE 74
[2024-04-17 08:19] LABS: Glucose - Point of Care 137 mg/dl (70-99)
[2024-04-17] MEDS: ELIQUIS 5 MG PO ×2 (09:06→21:22)
[2024-04-17] MEDS: NOVOLOG FLEXPEN-LOW RESISTANCE SC ×3 (09:07→17:00)
[2024-04-17] MEDS: ANCEF 10 IV ×2 (09:07→17:00)
[2024-04-17 09:35] LABS: % Basophils 0.2 % (0-2); % Eosinophils 0.9 % (0-6); % Immature Granulocytes 0.3 % (0-0.5); % Lymphocytes 5.7 % (20.5-51.1); % Monocytes 12.2 % (1.7-9.3); % Neutrophils 80.7 % (42.2-75.2); Absolute Eosinophils 0.1 10^3/uL (0-0.7); Absolute Lymphocytes 0.3 10^3/uL (1.2-3.4); Absolute Monocytes 0.7 10^3/uL (0.1-0.6); Absolute Neutrophils 4.6 10^3/uL (1.4-6.5); Hematocrit 36.3 % (39.0-52.0); Hemoglobin 11.8 g/dL (13.0-18.0); Mean Corp Hgb Conc. 32.5 g/dL (33.0-37.0); Mean Corpuscular Hgb 32.6 pg (27.0-31.0); Mean Corpuscular Volume 100.3 fL (80.0-94.0); Mean Platelet Volume 10.3 fL (7.4-10.4); Nucleated Red Blood Cells % 0 % (-); Platelet Count 89 10^3/uL (130-400); Red Blood Cell Count 3.62 10^6/uL (4.70-6.10); Red Cell Dist. Width 14.8 % (11.5-14.5); White Blood Cell Count 5.8 10^3/uL (4.8-10.8)
[2024-04-17 10:10] LABS: Blood Urea Nitrogen 23 mg/dl (9-20); Calcium 9.1 mg/dl (8.4-10.2); Carbon Dioxide 29 mmol/L (22-30); Chloride 102 mmol/L (98-107); Estimated Creatinine Clearance 79 ml/min; Glucose 144 mg/dl (70-99); Potassium 4.4 mmol/L (3.5-5.1); Sodium 140 mmol/L (135-145); eGFR > 60.00
--- NOTE | 2024-04-17 10:38 | WOUNDNOTE ---
[facility] RN NOTE: Reviewed chart and met with patient. Right LE and foot. with redness, tightness, dry skin and swelling. + audible pedal pulse bilaterally. Awaiting results of arterial studies and MRI is ordered. Patient is noted to have a right foot
wound that appears to be full-thickness and scabbed. Edema to left leg with venous stasis changes. Right UE and LE with multiple skin tears. Local wound care provided to skin tears and right foot. Moisturizer and TAYE applied to bilateral LE. Will
recommend Hydrophor to dry skin on UE and LE. Sacrum intact and patient reports good appetite and ambulates wit walker. Orders confirmed with Hospitalist and RN updated. Discharge and careplan updated. Will follow as needed.
--- NOTE | 2024-04-17 11:37 | WOUNDNOTE ---
RIGHT UPPER ARM
[2024-04-17 11:38] LABS: Glucose - Point of Care 129 mg/dl (70-99)
--- NOTE | 2024-04-17 11:38 | WOUNDNOTE ---
RIGHT DORSAL FOOT
--- NOTE | 2024-04-17 11:39 | WOUNDNOTE ---
RIGHT UPPER ARM
[2024-04-17 14:48] VITALS: BP 131/77; PULSE 53; O2SAT 99
--- NOTE | 2024-04-17 15:20 | W.PN.HOSP.TC ---
Today's Communication/Plan
-
Antibiotics.
Vascular surgery consultation.
MRI of the foot
Assessment / Plan
Assessment / Plan
Impression:
Right lower extremity cellulitis/chronic right dorsal foot wound, superficial
Other conditions:
ASCVD
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
Ambulatory dysfunction, walker dependent.
Benign hypertension.
Paroxysmal atrial fibrillation
Anticoagulation with Eliquis
Diabetes type 2 diet controlled.
Orthostatic hypotension.
Chronic thrombocytopenia.
BPH
Plan:
Right lower extremity cellulitis.
Foot warm appearing. Chronic right foot drop. 3+ edema was not able to palpate pulses.
No systemic symptoms of infection.
Normal white count.
Recent lower extremity Doppler negative for DVT.
Check arterial ultrasound:
OLIVIA PVR reviewed and suggestive of presence of vascular insufficiency
Vascular surgery consultation
MRI of the foot
Continue cefazolin.
Follow clinical improvement.
Senile Dementia
- Patient awake and alert and interactive. Answers questions without obvious confusion.
- ? compliance with med regimen - specifically recent abx as he did not recall receiving initial Rx.
- Monitor for any acute confusion / delirium during hospital stay.
ASCVD
Benign Hypertension
- Stable. Denies CP / SOB / etc.
- Need formal med rec in AM and resume usual meds once completed.
Paroxysmal atrial fibrillation per
Currently not on any antiarrhythmics or AV ish blocking agents.
ECG with A-fib rate and 50s.
Monitor on telemetry
Continue anticoagulation for thromboembolic prophylaxis. On Eliquis.
Diabetes type 2.
Hemoglobin A1c 5.8.
Not on any glucose lowering medications prior to presentation.
Formally on metformin
Continue basal bolus protocol.
Serial Accu-Cheks per
BETSEY
- Stable. Continue nightly PAP therapy.
BPH
- Bladder scan protocol.
Orthostatic Hypotension
- Based on prior hospitalization.
- Previously on Florinef and midodrine.
- No comment on this in recent PCP visit / PE.
- Follow-up formal med rec in AM as noted.
- Follow orthostatic signs.
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
Ambulatory Dysfunction secondary to the above
- ? if chronic foot drop / poor compliance with brace / boot is contributing to R foot scrapes / abrasions and cellulitis?
- PT / OT evals as noted above.
Chronic Thrombocytopenia
- Stable / platelet values unchanged from prior.
- No evidence of active bleeding.
- Follow for any obvious bleeding or significant changes in cell counts.
DVT Prophylaxis: On Eliquis
Code Status: Full
Anticipated Discharge: 24 - 48 hours
Subjective/Interval History
-
Date of Service: April 17, 2024
Objective Data
-
Labs:
Laboratory Results
04/17/24
08:45
WBC 5.8
Hgb 11.8 L
Hct 36.3 L
Plt Count 89 L
Sodium 140
Potassium 4.4
Chloride 102
Carbon Dioxide 29
BUN 23 H
Creatinine 0.9
Glucose 144 H
Calcium 9.1
Vital Signs:
Vital Signs
Temp Pulse Resp BP Pulse Ox
98 F 63 18 125/56 98
04/17/24 07:10 04/17/24 07:10 04/17/24 07:10 04/17/24 07:10 04/17/24 10:30
I&O
04/16/24 04/17/24 04/18/24
06:59 06:59 06:59
Intake Total 240 / 240 2061 480 / 480
Output Total 200 / 200
Balance 240 / 240 2061 280 / 280
Physical Exam
-
General: Negative Appears in Distress
HEENT: Negative Oxygen
Respiratory: Clear to Auscultation
Cardiac: S1/S2 and Irregular Rhythm; Negative Murmur
Musculoskeletal: No Edema and Other (Bilateral lower extremity erythema with induration. Right foot with superficial wound and scab, warm)
Neuro: Awake, Alert, Oriented and No Motor Deficits
[2024-04-17 15:28] VITALS: BP 131/77
--- NOTE | 2024-04-17 15:44 | CON.VAS ---
Addendum entered and electronically signed by MANDA Morrison 04/18/24 11:31:
Patient seen at bedside this a.m. with Dr. White. Daughter at bedside as well.
Plan:
-Follow-up in our office in 1 month for wound check. Plan to set patient up with lymphedema boots
-Continue compression and elevation. Only unwrap legs at bedtime.
-No endovascular intervention at this time
Original Note:
Consultation
Consultation Request
Performing Provider: Christopher
Reason for Consultation: Nonhealing R foot wound/PAD eval
Medical History
-
Chief Complaint: BL foot pain/redness
History of Present Illness:
78 yo male here with RLE cellulitis. Admitted for medical management. Pt was seen in the ER three times within the last month for this same problem. Pt has dementia and was unsure if he took the antibiotics prescribed, he thinks not. He also is
unaware of his home medications. PMH found in chart as noted below.
Arterial US suggests:
RIGHT LOWER EXTREMITY: OLIVIA within normal limits at 1.28. TBI within normal limits 1.07. Arterial duplex examination reveals multiphasic waveforms from the common femoral artery through the mid superficial femoral artery. There is a transition to
monophasic waveforms in the distal superficial femoral artery and popliteal artery suggesting the presence of disease at this location. Arterial calcification is identified. No focal velocity elevations are identified to suggest significant
stenosis. Monophasic continuous Doppler waveforms are demonstrated at the posterior tibial artery and dorsalis pedis artery.
LEFT LOWER EXTREMITY: OLIVIA falsely elevated at 1.47. TBI falsely elevated at 1.56. Arterial duplex examination reveals multiphasic waveforms from the common femoral artery through the mid superficial femoral artery. There is a transition to
monophasic waveforms in the distal superficial femoral and popliteal artery suggesting the presence of disease at this location. Arterial calcification is identified. No focal velocity elevations are identified to suggest significant stenosis.
Monophasic continuous Doppler waveforms are demonstrated at the posterior tibial artery and dorsalis pedis artery.
Vascular consult for nonhealing wound/PAD evaluation. Pt seen at bedside this afternoon.
Pt tells me he has had the RLE foot wound for 'as long as I can remember.' He does not recall wound healing issues in the past. He admits to BL LE swelling 'all the time.' He believes he uses compression at home. Pt's BL LE are ankur wrapped and very
edematous. Wound image in wound care notes. Pt admits his feet hurt 'all the time.' He has occasional cramping in his calves not is not relieved/caused by anything. He does not walk often d/t his feet hurting him which sounds to be due to the
swelling in them. Pt uses a walker at baseline for balance issues.
Nonpalpable distal pulses. Pt was not interested in getting back into his bed so I could check his femoral pulses.
Past Medical History
Past Medical History: CAD (? per pt has a cardiac stent) and Other (GERD, HFpEF, paroxysmal atrial fibrillation, cognitive impairment, CVA, hyperlipidemia, chronic right foot drop, orthostatic hypotension, hypertension, diabetes, anxiety/depression,
superficial)
Past Surgical History: Orthopedic and Other (gastric bypass, choledocholithiasiswith LAMS stent, history of GI bleeding from stent irritation/erosion, EDGE procedure done at [facility] in April 2023 for choledocholithiasis and had Axios stent
placement at that time)
Social History
Tobacco: Former Smoker (30 yr ago)
Family History
Family History: Reviewed & Not Pertinent
Allergies / Home Medications
Allergy/AdvReac Type Severity Reaction Status Date / Time
meperidine HCl [From Demerol] Allergy gets hyper Verified 04/15/24 03:08
ondansetron [From Zofran] Allergy N/V Verified 04/15/24 03:08
�Medication �Instructions �Recorded �Confirmed �Type
apixaban 5 mg tablet (Eliquis) 5 mg PO BID Blood Clot 05/21/23 04/15/24 Rx
Prevention/Tx #60 tabs
lidocaine 4 % topical patch 1 patch topical DAILY Pain #10 ea 03/18/24 04/15/24 Rx
clindamycin HCl 300 mg capsule 300 mg PO Q6H #28 caps 04/12/24 04/15/24 Rx
midodrine 5 mg tablet 5 mg PO DAILY 04/15/24 04/15/24 History
tramadol 50 mg tablet 50 mg PO BIDPRN PRN Pain 04/15/24 04/15/24 History
Review of Systems
-
History Source: Patient
All other systems: Negative unless noted
Constitutional: Reports No Symptoms
EENT: Reports No Symptoms
Respiratory: Reports No Symptoms
Cardiac: Reports No Symptoms
Vascular: Denies Leg Pain / Claudication
Abdomen/GI: Reports No Symptoms
: Reports No Symptoms
Musculoskeletal: Reports Muscle Stiffness, Edema and Other (BL foot pain)
Skin: Reports Other (RLE redness and nonhealing wound to top of right foot)
Neurological: Reports No Symptoms
Endocrine: Reports No Symptoms
Physical Exam
Vital Signs
Temp Pulse Resp BP Pulse Ox
98 F 53 18 131/77 99
04/17/24 15:28 04/17/24 15:28 04/17/24 15:28 04/17/24 15:28 04/17/24 15:28
Lab Results
04/17/24 08:45
04/17/24 08:45
Physical Exam
General: No Apparent Distress
HEENT: Normocephalic and Atraumatic
Respiratory: Non Labored Respirations
Cardiac: Negative JVD
GI: Soft and Non Tender
Musculoskeletal: No Clubbing, No Cyanosis and Edema (+3 BL LE)
Skin: Warm, Dry and Other (See wound care notes for pictures)
Neuro: Awake, Alert and Oriented
Psych: Calm
Assessment / Plan
-
78 yo male with nonhealing right foot wound (top of foot) for unknown length of time
US studies noted above
Plan:
-Local wound care
-Compression/elevation of BL LE
-Will d/w attending and follow up with pt
Data Reviewed
-
Ultrasound: Discussed with Patient
Labs: Labs Reviewed by me
[2024-04-17 16:31] LABS: Glucose - Point of Care 107 mg/dl (70-99)
--- NOTE | 2024-04-17 19:45 | PTCARENOTE ---
Received patient this am AAOx3. Pt forgetful and [place]. Pt off unit today for an Lower extremity arterial study and MRI of Right Lower Extremity. OOB to chair an tolerated well. WOCN saw patient today. Pt tolerated diet well. Made patient
comfortable. Cont to assess patient status.
[2024-04-17 19:57] VITALS: BP 154/79; BP 155/88; BP 157/88; PULSE 61; PULSE 67; PULSE 75
[2024-04-17 21:49] LABS: Glucose - Point of Care 147 mg/dl (70-99)
[2024-04-17 23:05] VITALS: BP 140/80
[2024-04-18] MEDS: ANCEF 10 IV ×4 (00:20→23:35)
[2024-04-18 01:47] VITALS: PULSE 55
[2024-04-18 06:00] VITALS: BMI 32.3
[2024-04-18 07:39] VITALS: BP 135/72
[2024-04-18] MEDS: ELIQUIS 5 MG PO ×2 (08:10→21:22)
[2024-04-18 08:13] LABS: Glucose - Point of Care 130 mg/dl (70-99)
[2024-04-18] MEDS: HYDROPHOR 1 APPLIC TOPICAL (08:13)
[2024-04-18] MEDS: NOVOLOG FLEXPEN-LOW RESISTANCE SC ×3 (08:13→17:21)
[2024-04-18] MEDS: TYLENOL 650 MG PO ×2 (08:15→15:04)
[2024-04-18] MEDS: ULTRAM 50 MG PO (11:25)
[2024-04-18 12:22] LABS: Glucose - Point of Care 129 mg/dl (70-99)
[2024-04-18 15:19] VITALS: BP 121/87
[2024-04-18 17:07] LABS: Glucose - Point of Care 110 mg/dl (70-99)
--- NOTE | 2024-04-18 17:07 | W.PN.HOSP.TC ---
Today's Communication/Plan
-
Continue IV antibiotics for another 24 hours with plan to transition to oral regimen upon discharge.
Case management for visiting nurse set up.
Will need outpatient vascular surgery follow-up.
Will need set up for lymphedema boots
Plan of care discussed with patient's daughter over the phone
Assessment / Plan
Assessment / Plan
Impression:
Right lower extremity cellulitis/chronic right dorsal foot wound, superficial
Other conditions:
ASCVD
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
Ambulatory dysfunction, walker dependent.
Benign hypertension.
Paroxysmal atrial fibrillation
Anticoagulation with Eliquis
Diabetes type 2 diet controlled.
Orthostatic hypotension.
Chronic thrombocytopenia.
BPH
Plan:
Right lower extremity cellulitis.
Foot warm appearing. Chronic right foot drop. 3+ edema was not able to palpate pulses.
No systemic symptoms of infection.
Normal white count.
Recent lower extremity Doppler negative for DVT.
OLIVIA PVR reviewed and suggestive of presence of vascular insufficiency along with chronic edema/lymphedema.
MRI of the foot 1. SEVERE CELLULITIS throughout the DORSAL RIGHT FOOT.
2. No MRI evidence for acute osteomyelitis or abscess.
3. Severe diffuse acute on chronic muscle denervation.
4. Moderate arthritis of the right 1st tarsometatarsal joint.
5. Mild osteoarthritis of the talonavicular, calcaneocuboid, and 1st MTP joints.
6. 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
Vascular surgery evaluation appreciated. No indication for vascular intervention at this point
Continue wrapping throughout the day. Lymphedema boots
Continue cefazolin.
Follow clinical improvement.
Senile Dementia
- Patient awake and alert and interactive. Answers questions without obvious confusion.
- ? compliance with med regimen - specifically recent abx as he did not recall receiving initial Rx.
- Monitor for any acute confusion / delirium during hospital stay.
ASCVD
Benign Hypertension
- Stable. Denies CP / SOB / etc.
- Need formal med rec in AM and resume usual meds once completed.
Paroxysmal atrial fibrillation per
Currently not on any antiarrhythmics or AV ish blocking agents.
ECG with A-fib rate and 50s.
Monitor on telemetry
Continue anticoagulation for thromboembolic prophylaxis. On Eliquis.
Diabetes type 2.
Hemoglobin A1c 5.8.
Not on any glucose lowering medications prior to presentation.
Formally on metformin
Continue basal bolus protocol.
Serial Accu-Cheks per
BETSEY
- Stable. Continue nightly PAP therapy.
BPH
- Bladder scan protocol.
Orthostatic Hypotension
- Based on prior hospitalization.
- Previously on Florinef and midodrine.
- No comment on this in recent PCP visit / PE.
- Follow-up formal med rec in AM as noted.
- Follow orthostatic signs.
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
Ambulatory Dysfunction secondary to the above
- ? if chronic foot drop / poor compliance with brace / boot is contributing to R foot scrapes / abrasions and cellulitis?
- PT / OT evals as noted above.
Chronic Thrombocytopenia
- Stable / platelet values unchanged from prior.
- No evidence of active bleeding.
- Follow for any obvious bleeding or significant changes in cell counts.
DVT Prophylaxis: On Eliquis
Code Status: Full
Anticipated Discharge: 24 - 48 hours
Subjective/Interval History
-
Date of Service: April 18, 2024
Objective Data
-
Vital Signs:
Vital Signs
Temp Pulse Resp BP Pulse Ox
98.6 F 59 18 121/87 99
04/18/24 15:19 04/18/24 15:19 04/18/24 15:19 04/18/24 15:19 04/18/24 15:19
I&O
04/17/24 04/18/24 04/19/24
06:59 06:59 06:59
Intake Total 2061 960 / 960
Output Total 500 / 500
Balance 2061 460 / 460
Physical Exam
-
General: Negative Appears in Distress
HEENT: Negative Oxygen
Respiratory: Clear to Auscultation
Cardiac: S1/S2 and Irregular Rhythm; Negative Murmur
Musculoskeletal: No Edema and Other (Bilateral lower extremity erythema with induration. Right foot with superficial wound and scab, warm)
Neuro: Awake, Alert, Oriented and No Motor Deficits
[2024-04-18 21:26] LABS: Glucose - Point of Care 164 mg/dl (70-99)
[2024-04-18 23:31] VITALS: BP 141/72
[2024-04-19 00:04] VITALS: BP 136/79; BP 140/71; BP 140/80; PULSE 60; PULSE 61; PULSE 66
--- NOTE | 2024-04-19 05:06 | PTCARENOTE ---
pt OOB to br to void and requested to sit in chair. pt threw chair alarm on floor and sat in chair. pt is refusing to have the chair alarm under him and is getting increasingly agitated despite multiple attempts to place one by multiple nurses. will
continue to monitor.
[2024-04-19 06:00] VITALS: BMI 32.1
[2024-04-19] MEDS: ULTRAM 50 MG PO (06:46)
[2024-04-19 07:49] VITALS: BP 136/80
[2024-04-19 08:05] LABS: Glucose - Point of Care 129 mg/dl (70-99)
[2024-04-19] MEDS: NOVOLOG FLEXPEN-LOW RESISTANCE SC ×2 (08:15→12:25)
[2024-04-19] MEDS: ELIQUIS 5 MG PO (09:04)
[2024-04-19] MEDS: ANCEF 10 IV ×2 (09:05→15:55)
[2024-04-19] MEDS: HYDROPHOR 1 APPLIC TOPICAL (10:50)
--- NOTE | 2024-04-19 11:10 | CM ---
Pt is likely ready for discharge to home today. He is known to [facility] who will provide services at discharge with possible wound care services through [facility] wound care service.
[facility] liaison will coordinate services.
Plan: Discharge to home with VN
--- NOTE | 2024-04-19 11:40 | VNURNOTE ---
Home Health Liaison spoke with patient's daughter Clair to discuss [facility] nurse/therapy, visits, schedule and homebound status. She is agreeable and understands that visits at home will be 2-3 x per week to assess and teach medical and wound
management. Daughter is aware that [facility] will contact them for start of care in 1-2 days after discharge from . [facility] referral completed in [facility].
[2024-04-19 12:25] LABS: Glucose - Point of Care 124 mg/dl (70-99)
--- NOTE | 2024-04-19 13:27 | W.DS.TRANS ---
DC Summary - Billing And Insurance Coordinator
-
Discharge Instructions:
Discharge Diagnosis/Procedures Impression:
Right lower extremity cellulitis/chronic right
dorsal foot wound, superficial
Other conditions:
ASCVD
History of CVA with residual right lower
extremity weakness/right foot drop
Ambulatory dysfunction, walker dependent.
Benign hypertension.
Paroxysmal atrial fibrillation
Anticoagulation with Eliquis
Diabetes type 2 diet controlled.
Orthostatic hypotension.
Chronic thrombocytopenia.
BPH
Diet Diabetic, Carb Controlled
Instructions:
Stand-Alone Forms:
Changes to Home Medications: Yes
Discharge Medications:
DC Medications w/original date entered in [employer]
apixaban 5 mg tablet (Eliquis) 5 mg PO BID Blood Clot Prevention/Tx #60 tabs 05/21/23
lidocaine 4 % topical patch 1 patch topical DAILY Pain #10 ea 03/18/24
midodrine 5 mg tablet 5 mg PO DAILY 04/15/24
tramadol 50 mg tablet 50 mg PO BIDPRN PRN Pain 04/15/24
cephalexin 500 mg capsule 500 mg PO Q8H 7 days #21 caps 04/19/24
Home Medication Changes
Antibiotics for additional 7 days
Pending Results: No
[2024-04-19 15:18] VITALS: BP 167/84
--- NOTE | 2024-04-19 15:49 | PTCARENOTE ---
Addendum entered by Rosita Potter RN 04/19/24 17:08:
Dr Garcia and Kathy case management contacted. Patient called daughter Mary who also is not available to pick patient up. Offered patient wheelchair van and lyft. Patient states that he could not afford any of these options. Case management offered
lyft and patient agreed.
Original Note:
Rn [employer] market research consultant- Called and spoke with daughter Clair who states patient only has caregiver 8-2 and can we keep patient until tomorrow and discharge between 8-1400.
--- NOTE | 2024-04-19 16:57 | CM ---
Pt was cleared for discharge with plan to drive himself home. did not feel Vasu should be driving and documented this on the discharge instructions.
Vasu was concerned about how he would get his car home since he drove himself to the hospital. Multiple team members discussed options; Vasu's family members were contacted and were not able to offer a solution. Dewayne arranged via contract
for pt to return home.
Plan: Discharge to home with VN and outpatient f/u with vascular surgery.
--- NOTE | 2024-04-19 17:26 | PTCARENOTE ---
Received patient this am AAOx3. Pt GAK[place] an forgetful. Pt ambulating in room with assistance of one an rolling walker. OOB to chair an tolerated well. Pt's daughter Clair called patient this am while RN was in room. FABY Tomlin spoke to patient's
daughter and gave her an update on POC. Made patient comfortable. Cont to assess patient status.
--- NOTE | 2024-04-19 17:33 | PTCARENOTE ---
Received a discharge order for patient to go home. Pt stated' that he was going to drive himself home.' Pt has a history of dementia an right foot drop. Pt is unsafe to drive. Spoke to Dr. Lazar. agree that patient can not drive home. Pt's
daughter Clair made aware by physician, case management and nursing that her father was being discharged. Pt was offered by case management transportation by ambulance or wheelchair van and refused. Pt 'stated that he doesn't have the finances
to pay for either.' Both patients daughters called by case management an neither were available to pick patient up. Patient was offered an ride home via Ly[employer], which patient agree to. Pt was given discharge instructions by discharge nurse. Pt was
assisted into [employer] car. RN then received a call from patients daughter Clair. She was screaming on phone in regards to how her father received transportation home. RN explained the facts again in regards to her father being appropriately
discharged and safe transportation was provided. Spoke with Dr. Lee in regards to this issue.
== END 2024-04-19 17:22 | disposition home health service (06) | DRG 638 ==
LOC: 4 EAST ACU 05:32
PROVIDERS: Nurse Practitioner Family; ADMITTING PHYSICIAN Hospitalist; ATTENDING PHYSICIAN Internal Medicine; EMERGENCY PHYSICIAN Emergency Medicine; FAMILY PHYSICIAN Family Medicine; OTHER PHYSICIAN Nurse Practitioner Acute Care
DX: E11.621 Type 2 diabetes mellitus with foot ulcer (principal); F03.A3 Unspecified dementia, mild, with mood disturbance; L03.115 Cellulitis of right lower limb; F03.A4 Unspecified dementia, mild, with anxiety; L97.419 Non-pressure chronic ulcer of right heel and midfoot with unspecified severity; I89.0 Lymphedema, not elsewhere classified; I25.10 Atherosclerotic heart disease of native coronary artery without angina pectoris; M21.371 Foot drop, right foot; I10 Essential (primary) hypertension; I48.0 Paroxysmal atrial fibrillation; Z79.01 Long term (current) use of anticoagulants; E11.40 Type 2 diabetes mellitus with diabetic neuropathy, unspecified; I95.1 Orthostatic hypotension; D69.6 Thrombocytopenia, unspecified; N40.0 Benign prostatic hyperplasia without lower urinary tract symptoms; Z87.19 Personal history of other diseases of the digestive system; K21.9 Gastro-esophageal reflux disease without esophagitis; Z98.84 Bariatric surgery status; E78.00 Pure hypercholesterolemia, unspecified; F32.A Depression, unspecified; Z87.891 Personal history of nicotine dependence; Z88.5 Allergy status to narcotic agent; Z79.899 Other long term (current) drug therapy; I69.341 Monoplegia of lower limb following cerebral infarction affecting right dominant side; G47.33 Obstructive sleep apnea (adult) (pediatric); D50.9 Iron deficiency anemia, unspecified; Z95.5 Presence of coronary angioplasty implant and graft; Z96.643 Presence of artificial hip joint, bilateral; Z96.651 Presence of right artificial knee joint
CPT/HCPCS: 73720; 80048; 80053; 82962; 83036; 85025; 85027; 85610; 85730; 87070; 93922; 93925; 94660; 96361; 96374; 97116; 97166; 97530; 99284; A9575

== ENCOUNTER 2024-04-25 12:18 | Inpatient (IN) | payer MEDICARE, OTHER, SELFPAY ==
[2024-04-22 13:19] VITALS: BP 138/70
[2024-04-22 13:58] LABS: White Blood Cell Count 5.4 10^3/uL (4.8-10.8)
[2024-04-22 13:59] LABS: % Basophils 0.6 % (0-2); % Eosinophils 0.9 % (0-6); % Immature Granulocytes 0.4 % (0-0.5); % Lymphocytes 8.7 % (20.5-51.1); % Monocytes 13.7 % (1.7-9.3); % Neutrophils 75.7 % (42.2-75.2); Absolute Eosinophils 0.1 10^3/uL (0-0.7); Absolute Lymphocytes 0.5 10^3/uL (1.2-3.4); Absolute Monocytes 0.7 10^3/uL (0.1-0.6); Absolute Neutrophils 4.1 10^3/uL (1.4-6.5); Hematocrit 33.5 % (39.0-52.0); Hemoglobin 11.8 g/dL (13.0-18.0); Mean Corp Hgb Conc. 35.2 g/dL (33.0-37.0); Mean Corpuscular Hgb 34.9 pg (27.0-31.0); Mean Corpuscular Volume 99.1 fL (80.0-94.0); Mean Platelet Volume 10.4 fL (7.4-10.4); Nucleated Red Blood Cells % 0 % (-); Platelet Count 124 10^3/uL (130-400); Red Blood Cell Count 3.38 10^6/uL (4.70-6.10); Red Cell Dist. Width 15.6 % (11.5-14.5)
[2024-04-22 14:07] LABS: ALT (SGPT) 17 U/L (0-50); AST (SGOT) 31 U/L (17-59); Albumin 3.9 g/dl (3.5-5.0); Alkaline Phosphatase 82 U/L (38-126); Blood Urea Nitrogen 26 mg/dl (9-20); Calcium 9.4 mg/dl (8.4-10.2); Carbon Dioxide 32 mmol/L (22-30); Chloride 103 mmol/L (98-107); Glucose 132 mg/dl (70-99); Potassium 4.6 mmol/L (3.5-5.1); Sodium 140 mmol/L (135-145); Total Bilirubin 0.6 mg/dl (0.2-1.3); Total Protein 6.4 g/dl (6.3-8.2); eGFR > 60.00
--- NOTE | 2024-04-22 14:59 | ED.GENMED ---
History of Present Illness
General
Chief Complaint: Skin Problem
Source: patient
Exam Limitations: none
Time Seen by Provider: 04/22/24 14:46
History of Present Illness
History of Present Illness:
78 year old male presents with increased pain to the right lower extremity from the knee down. He has been dealing with cellulitis of the right leg. He has a chronic wound to the dorsum of the foot. He was just discharged from this hospital 3
days ago for cellulitis. He was darted on Keflex. He states he has been taking his medication however his leg seems to be getting worse. He denies fevers or chills. No chest pain or shortness of breath. He has been taking his Eliquis. No other
complaints at this time.
Past History
Past History
ED Past Medical History: Arrthythmia (Atrial fibrillation), CAD, CHF, CVA (with right sided weakness), GERD, HTN, Hypercholesterolemia, NIDDM, NC, Psychiatric (Anxiety, Depression) and Other (GI bleed, GI stent, Orthostatic hypotension, Iron
deficiency anemia, Neuropathy, Sleep apnea, UTI, )
ED Past Surgical History: Cardiac (stent), Cholecystectomy, Orthopedic (Bilateral hip replacements, Left rotator cuff surgery, Right knee replacement) and Other (Gastric bypass)
Patient has exhibited threatening behavior?: No
PSI?: No
Social History
Tobacco: Former smoker
Alcohol: None
Drug: None
Personal:
Living: with family
Employment: Not employed
Family History
Family History: Other (Reviewed and Noncontributory)
Phy Exam
Physical Exam
Physical Exam:
General: Slightly unkempt male no acute respiratory distress
HEENT: Normocephalic atraumatic
Heart: Regular rate and rhythm
Lungs: Clear no wheeze
Abdomen is soft nontender nondistended no guarding or rebound normal bowel sounds
Extremity: Erythema and tenderness noted to the right leg from the knee down. There is blister formation noted over the martines. There is edema. There is a chronic dorsal wound to the right foot
Course
Orders/Labs/Results
Orders:
Orders
04/22/24 13:30
CMP [Comprehensive Metabolic Panel] Urgent
Complete Blood Count/With Diff Urgent
04/22/24 15:06
HYDROmorphone [Dilaudid] 0.5 mg IV NOW STA
04/22/24 15:08
Vancomycin [Vancocin] 2,000 mg 0.9% Sodium Chloride 500 ml [Nss] 500 ml IV NOW
Abnormal Lab Results
04/22/24
13:30
RBC 3.38 L 10^6/uL
(4.70-6.10)
Hgb 11.8 L g/dL
(13.0-18.0)
Hct 33.5 L %
(39.0-52.0)
MCV 99.1 H fL
(80.0-94.0)
MCH 34.9 H pg
(27.0-31.0)
RDW 15.6 H %
(11.5-14.5)
Plt Count 124 L D 10^3/uL
(130-400)
Absolute Lymphs (auto) 0.5 L 10^3/uL
(1.2-3.4)
Absolute Monos (auto) 0.7 H 10^3/uL
(0.1-0.6)
Neutrophils % 75.7 H %
(42.2-75.2)
Lymphocytes % 8.7 L %
(20.5-51.1)
Monocytes % 13.7 H %
(1.7-9.3)
Carbon Dioxide 32 H mmol/L
(22-30)
BUN 26 H mg/dl
(9-20)
Glucose 132 H mg/dl
(70-99)
04/22/24 13:30
04/22/24 13:30
Vital Signs
Initial and Last Documented VS:
Initial Vital Signs
Temp Pulse Resp BP Pulse Ox
98.6 F 63 18 138/70 99
04/22/24 13:19 04/22/24 13:19 04/22/24 13:19 04/22/24 13:19 04/22/24 13:19
Last Documented Vital Signs
Temp Pulse Resp BP Pulse Ox
98.6 F 63 18 138/70 99
04/22/24 13:19 04/22/24 13:19 04/22/24 13:19 04/22/24 13:19 04/22/24 13:19
MDM/Problems Addressed
Differential Diagnosis Includes:
Erythema to right leg. Question inflammatory response versus recurrent cellulitis. He has been on Keflex without relief.
Check labs. Reviewed prior hospital record. He had an ultrasound of his right leg done at the his prior admission and he is on a blood thinner. Do not suspect DVT. Hold off on ultrasound for now. No new injury. X-rays not indicated.
*Critical Care Note
Total Time (30-74mins, 75-104mins- exclusive of procedures): Not Applicable
Update Note
Update Note:
Patient with persistent cellulitis right leg not improving and getting worse with oral antibiotics. Labs reviewed. Will mid to hospital. Vancomycin ordered. Unlikely to be DVT given anticoagulated state and recent negative ultrasound
ED Attending Note
-
Portions of this chart may have been created with voice recognition software.� Occasional wrong word or��sound alike� substitutions may have occurred due to the inherent limitations of voice recognition software.
Discharge Plan
Departure
Patient Disposition: Admit
Date of Disposition: 04/22/24
Time of Disposition: 16:08
Admit to: Telemetry
Presentation/result/management discussed w/ accepting MD/DO: Hospitalist
Discharge Problem:
Cellulitis
Prescriptions:
No Action
Eliquis 5 mg Tablet
5 mg PO BID Qty: 60 0RF
lidocaine 4 % adhesive patch,medicated
1 patch topical DAILY Qty: 10 0RF
midodrine 5 mg tablet
5 mg PO DAILY
Rx Instructions:
Take 1 extra pill if feeling dizzy AND Systolic blood pressure < 100
tramadol 50 mg tablet
50 mg PO BIDPRN PRN (Reason: Pain)
cephalexin 500 mg capsule
500 mg PO Q8H 7 Days Qty: 21 0RF
Referrals:
William Renner, DO [Family Provider] -
Interventions
Interventions:
*Risk Screen - Suicide Last Done: 04/22/24 13:19
*General Assessment Last Done: 04/22/24 13:19
*Neglect/Abuse Screening Last Done: 04/22/24 13:19
*ED COVID-19 Vaccine History Last Done: 04/22/24 13:19
Discharge Date and Time
Print Language: GEORGIAN
[2024-04-22 15:13] VITALS: BMI 31.6
[2024-04-22] MEDS: DILAUDID 0.5 MG IV (15:36)
[2024-04-22] MEDS: VANCOCIN 540 MG IV (15:42)
--- NOTE | 2024-04-22 16:30 | HPS.HSE ---
Addendum entered and electronically signed by Douglas Gonzales MD 04/22/24 17:45:
I saw and examined the patient.
The FUNCTIONAL ANALYST or PA's note was reviewed and I agree with the note.
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
thrombocytopenia, BPH came to the hospital with worsening right lower extremity cellulitis. It is unclear if patient was taking oral antibiotics when he was discharged few days ago. Start Ancef for now. Wound care. Trial of Lasix to help with
lower extremity swelling.
General: Negative Appears in Distress
HEENT: Negative Oxygen
Respiratory: Clear to Auscultation
Cardiac: S1/S2 and Irregular Rhythm; Negative Murmur
Musculoskeletal: No Edema and Other (Bilateral lower extremity erythema with induration. Right foot with superficial wound and scab, warm)
Neuro: Awake, Alert, Oriented and No Motor Deficits
Original Note:
Family Physician
-
Family Physician: William Renner
Chief Complaint
-
Increasing redness of right lower extremity
History of Present Illness
Patient is an 78 y/o male past medical history of dementia, CHF, A-fib who presents with recurrent redness and pain of the right lower extremity. Patient was recently discharged from [facility] following a hospitalization for a right lower
extremity cellulitis on 04/19/2024. Patient reports he has been taking his antibiotics, but family raises concerns that he has been missing doses. Patient denies any fevers, sweats or chills.
Medical History
Past Medical History
Past Medical History: Reports Other
Additional Past Medical History:
Chronic HFpEF
Atrial Fibrillation
CVA with Residual Right Foot Drop
Diabetes Mellitus, Type II
Chronic Thrombocytopenia
Senile Dementia
Orthostatic Hypotension
Obstructive Sleep Apnea
Obesity
Past Surgical History: Reports Other (Cholecystectomy, Orthopedic and Other (Gastric bypass) , EDGE procedure done at [place] in April 2023 for choledocholithiasis and had Axios stent placement at that time.)
Social History
Tobacco: Former Smoker (Quit smoking about 30 years ago. Approx 30 pack years total use.)
Alcohol: Occasional
Drug: None
Family History
Family History: Not pertinent
Allergies / Home Medications
Allergies reflects when Allergies were last updated in [facility].
Home Medications with original date entered in tok tok [facility]
Allergy/Medication List:
Allergies
Allergy/AdvReac Type Severity Reaction Status Date / Time
meperidine HCl [From Demerol] Allergy gets hyper Verified 04/22/24 13:22
ondansetron [From Zofran] Allergy N/V Verified 04/22/24 13:22
Home Medications
apixaban 5 mg tablet (Eliquis) 5 mg PO BID Blood Clot Prevention/Tx #60 tabs 05/21/23
lidocaine 4 % topical patch 1 patch topical DAILY Pain #10 ea 03/18/24
midodrine 5 mg tablet 5 mg PO TID 04/15/24
tramadol 50 mg tablet 50 mg PO BIDPRN PRN Pain 04/15/24
cephalexin 500 mg capsule 500 mg PO Q8H 7 days #21 caps 04/19/24
cholecalciferol (vitamin D3) 25 mcg (1,000 unit) tablet (Vitamin D3) 25 mcg PO DAILY 04/22/24
digoxin 125 mcg (0.125 mg) tablet 125 mcg PO DAILY 04/22/24
donepezil 10 mg tablet 10 mg PO HS 04/22/24
ferrous sulfate 325 mg (65 mg iron) tablet 325 mg PO DAILY 04/22/24
fludrocortisone 0.1 mg tablet 0.2 mg PO DAILY 04/22/24
furosemide 20 mg tablet 20 mg PO DAILY 04/22/24
metformin 500 mg tablet 500 mg PO DAILY 04/22/24
pravastatin 40 mg tablet 40 mg PO DAILY 04/22/24
tamsulosin 0.4 mg capsule (Flomax) 0.4 mg PO DAILY 04/22/24
vibegron 75 mg tablet (Gemtesa) 75 mg PO DAILY 04/22/24
Review of Systems
-
A 12 point ROS was completed and negative except as noted: Yes
Constitutional: Denies Fever or Chills
Respiratory: Denies Cough or Trouble Breathing
Cardiac: Denies Chest Pain or Palpitations
Skin: Reports See HPI
Physical Exam
Vital Signs
Vital Signs
Temp Pulse Resp BP Pulse Ox
98.6 F 63 18 138/70 99
04/22/24 13:19 04/22/24 13:19 04/22/24 13:19 04/22/24 13:19 04/22/24 13:19
Physical Exam
General: Comfortable and Conversant
HEENT: Anicteric and Moist mucous membranes
Respiratory: Clear and Non Labored Respirations
Cardiac: S1/S2 and Irregular Rhythm; No Tachycardia
GI: Soft and Non Tender
Rectal: Deferred by Provider
Musculoskeletal: No Clubbing, No Cyanosis and Other (Pitting edema bilateral lower extremities)
Skin: Warm, Dry and Other (Moderate erythema increased warmth to touch right lower extremity from foot to just below the knee; Multiple lower extremity wounds noted)
Neuro: Awake, Alert and Nonfocal/grossly intact
Psych: Calm
Laboratory Results
-
04/22/24 13:30
04/22/24 13:30
Laboratory Results
Total Bilirubin 0.6 mg/dl (0.2-1.3) 04/22/24 13:30
AST 31 U/L (17-59) 04/22/24 13:30
ALT 17 U/L (0-50) 04/22/24 13:30
Alkaline Phosphatase 82 U/L (38-126) 04/22/24 13:30
Data Reviewed
-
Lab Data: Labs Reviewed by me
Old Records: Reviewed
Impression/Plan
-
Recurrent Right Lower Extremity Cellulitis
-Possibly related to missed doses of oral antibiotics vs underdosing of cephalexin
-Continue Ancef
-Consult Wound Care
-Per prior discharge patient needs continued lower extremity lymphedema treatment
Chronic HFpEF
-Monitor Is&Os and Daily Weights
-Unclear if patient is taking Lasix
Permanent Atrial Fibrillation
-Continue Eliquis for anticoagulation
-Unclear if patient is taking digoxin
Diabetes Mellitus, Type II
-Hold metformin
-HgbA1c 5.8 on 04/15/2024
Chronic Thrombocytopenia
-Platelet count stable
Senile Dementia
-Continue donepezil
Orthostatic Hypotension
-Continue midodrine and fludrocortisone
Hx CVA with Residual Right Foot Drop
DVT proph: Eliquis
Code Status: Full Code
--- NOTE | 2024-04-22 16:30 | PHANOTE ---
[employer](04/22/24)-Spoke to patient, he did not know his medications but referred me to . Called , but she also did not know his medications. Created a list with [facility] records and [facility] record from 04/20/24.
[2024-04-22 16:53] VITALS: BP 155/84
[2024-04-22] MEDS: LASIX 20 MG IV (17:26)
[2024-04-22] MEDS: ANCEF 10 IV ×2 (18:33→23:25)
[2024-04-22 18:44] VITALS: BMI 31.6
[2024-04-22 18:49] LABS: Glucose - Point of Care 188 mg/dl (70-99)
[2024-04-22] MEDS: ELIQUIS 5 MG PO (19:24)
[2024-04-22] MEDS: ARICEPT 10 MG PO (21:48)
[2024-04-22] MEDS: DILAUDID 0.25 MG IV (22:30)
[2024-04-22 23:00] VITALS: BP 147/76
[2024-04-22 23:15] VITALS: PULSE 88
[2024-04-23] MEDS: ULTRAM 50 MG PO ×2 (00:04→13:02)
[2024-04-23 03:05] VITALS: PULSE 84
[2024-04-23 06:00] VITALS: BMI 31.7
[2024-04-23 07:45] VITALS: BP 170/80
[2024-04-23 08:02] LABS: Hematocrit 38.2 % (39.0-52.0); Hemoglobin 12.4 g/dL (13.0-18.0); Mean Corp Hgb Conc. 32.5 g/dL (33.0-37.0); Mean Corpuscular Hgb 32.6 pg (27.0-31.0); Mean Corpuscular Volume 100.5 fL (80.0-94.0); Mean Platelet Volume 10.6 fL (7.4-10.4); Platelet Count 114 10^3/uL (130-400); Red Cell Dist. Width 14.6 % (11.5-14.5)
[2024-04-23] MEDS: PRAVACHOL 40 MG PO (08:08)
[2024-04-23] MEDS: ELIQUIS 5 MG PO ×2 (08:08→19:57)
[2024-04-23] MEDS: FEOSOL 325 MG PO (08:08)
[2024-04-23] MEDS: FLORINEF 0.2 MG PO (08:08)
[2024-04-23] MEDS: ProAmatine 5 MG PO ×3 (08:08→17:31)
[2024-04-23] MEDS: ANCEF 10 IV ×3 (08:09→22:46)
[2024-04-23] MEDS: DILAUDID 0.25 MG IV ×3 (08:20→22:46)
[2024-04-23 08:25] LABS: Blood Urea Nitrogen 25 mg/dl (9-20); Glucose 140 mg/dl (70-99)
[2024-04-23 08:26] LABS: Calcium 9.2 mg/dl (8.4-10.2); Carbon Dioxide 31 mmol/L (22-30); Chloride 98 mmol/L (98-107); Estimated Creatinine Clearance 87 ml/min; Sodium 136 mmol/L (135-145); eGFR > 60.00
[2024-04-23 09:00] VITALS: BP 143/85; PULSE 54; O2SAT 100
[2024-04-23 09:43] LABS: Digoxin < 0.4 ng/ml (0.8-2.0)
[2024-04-23] MEDS: NOVOLOG FLEXPEN-LOW RESISTANCE SC ×2 (10:12→17:32)
[2024-04-23 11:33] LABS: Glucose - Point of Care 172 mg/dl (70-99)
--- NOTE | 2024-04-23 12:28 | W.PN.HOSP.TC ---
Today's Communication/Plan
-
Monitor vital signs
see plan
Will need caseworker intake evaluation prior to discharge regarding needs for his medication
cw abx
wound care
PT/OT
Assessment / Plan
Assessment / Plan
General: Negative Appears in Distress
HEENT: Negative Oxygen
Respiratory: Clear to Auscultation
Cardiac: S1/S2 and Irregular Rhythm; Negative Murmur
Musculoskeletal: No Edema and Other (Bilateral lower extremity erythema with induration. Right foot with superficial wound and scab, warm)
Neuro: Awake, Alert, Oriented and No Motor Deficits
Recurrent Right Lower Extremity Cellulitis
-Possibly related to missed doses of oral antibiotics
-Continue Ancef
-Consult Wound Care
-Per prior discharge patient needs continued lower extremity lymphedema treatment
Per patient he has not been able to fill his medications as he has no way to get those medications. Will need caseworker intake evaluation.
Chronic HFpEF
-Monitor Is&Os and Daily Weights
-Unclear if patient is taking Lasix; monitor.
Permanent Atrial Fibrillation
-Continue Eliquis for anticoagulation
-Unclear if patient is taking digoxin
Diabetes Mellitus, Type II
-Hold metformin
-HgbA1c 5.8 on 04/15/2024
ISS,accuchecks
Chronic Thrombocytopenia
monitor
Senile Dementia
-Continue donepezil
Orthostatic Hypotension
-Continue midodrine and fludrocortisone
Hx CVA with Residual Right Foot Drop
DVT proph: Eliquis
Code Status: Full Code
Anticipated Discharge: 24 - 48 hours
Subjective/Interval History
-
Date of Service: April 23, 2024
Denies nausea
Objective Data
-
Labs:
Laboratory Results
04/23/24
06:28
WBC 7.0
Hgb 12.4 L
Hct 38.2 L
Plt Count 114 L
Sodium 136
Potassium 5.0
Chloride 98
Carbon Dioxide 31 H
BUN 25 H
Creatinine 0.8
Glucose 140 H
Calcium 9.2
Vital Signs:
Vital Signs
Temp Pulse Resp BP Pulse Ox
97.6 F 64 18 151/78 100
04/23/24 07:45 04/23/24 08:08 04/23/24 07:45 04/23/24 08:08 04/23/24 07:45
I&O
04/22/24 04/23/24 04/24/24
06:59 06:59 06:59
Intake Total 1440 / 1440 480 / 480
Balance 1440 / 1440 480 / 480
[2024-04-23] MEDS: NOVOLOG FLEXPEN-LOW RESISTANCE 1 UNITS SC (13:07)
--- NOTE | 2024-04-23 15:29 | CM ---
CM reviewed chart, call placed to patients , no response, voicemail left. Patient seen bedside, initial assessment completed. Patient recently discharged from Hospital 04/19/24. Patient resides with in a single story condo, one step to
enter. Patient reports he has a walker, grab bars, and shower chair at home, reports [facility] in past, does not believe he has been to SNF. Patient confirms PCP Dr. Renner, pharmacy [facility]. Patient confirms prescription
coverage, reports he does have food insecurities at home, CM will provide resources to patient. [facility] form reviewed verbally, provided with copy, placed in chart. CM will continue to follow for all discharge planning needs.
Plan; home with return of care [facility] likely.
[2024-04-23 15:52] VITALS: BP 142/81
[2024-04-23 16:33] LABS: Glucose - Point of Care 149 mg/dl (70-99)
--- NOTE | 2024-04-23 16:49 | PTCARENOTE ---
Assumed care of pt from previous nurse. Pt provided pain medication for pain to rle with positive results. Pt call abernathy is within reach, pt rings [facility]. will cont to monitor.
[2024-04-23] MEDS: ARICEPT 10 MG PO (19:57)
[2024-04-23 22:33] LABS: Glucose - Point of Care 149 mg/dl (70-99)
[2024-04-23] MEDS: COMPAZINE 5 MG IV (22:47)
[2024-04-23 23:45] VITALS: BP 156/79
[2024-04-24] MEDS: PROTONIX IV 40 MG IV (00:32)
[2024-04-24] MEDS: BENADRYL 12.5 MG IV (00:32)
[2024-04-24] MEDS: NSS (PRESERVATIVE FREE) 10 ML IV (00:32)
[2024-04-24 06:00] VITALS: BMI 31.4
[2024-04-24 07:00] VITALS: BP 127/86
[2024-04-24 07:12] LABS: Glucose - Point of Care 132 mg/dl (70-99)
[2024-04-24 08:12] LABS: % Basophils 0.5 % (0-2); % Immature Granulocytes 0.3 % (0-0.5); % Lymphocytes 7.9 % (20.5-51.1); % Monocytes 14.3 % (1.7-9.3); Absolute Eosinophils 0.1 10^3/uL (0-0.7); Absolute Lymphocytes 0.5 10^3/uL (1.2-3.4); Absolute Monocytes 0.9 10^3/uL (0.1-0.6); Absolute Neutrophils 4.6 10^3/uL (1.4-6.5); Hematocrit 34.2 % (39.0-52.0); Hemoglobin 12.3 g/dL (13.0-18.0); Mean Corpuscular Hgb 34.7 pg (27.0-31.0); Mean Corpuscular Volume 96.6 fL (80.0-94.0); Nucleated Red Blood Cells % 0 % (-); Platelet Count 92 10^3/uL (130-400); Red Blood Cell Count 3.54 10^6/uL (4.70-6.10); Red Cell Dist. Width 14.2 % (11.5-14.5); White Blood Cell Count 6.1 10^3/uL (4.8-10.8)
--- NOTE | 2024-04-24 08:37 | VNURNOTE ---
Chart reviewed. Patient is current with [facility] nursing. Will continue to follow hospital course and DC plans.
--- NOTE | 2024-04-24 09:05 | CM ---
Addendum entered by Susanne Norton 04/24/24 14:17:
Spoke with daughter Clair, she stated she is POA.
CM requested POA forms be sent to the hospital and she stated she would email the forms.
Clair requested call from [facility] JAMES to .
Per Clair, patient has dementia and should not be driving.
Per Clair, patient did take his prescribed antibiotic, the nurses aide gave it to him and medications are delivered .
She is very upset with multiple admissions for the same dx and feels patient requires IV anbx for treatment.
She is agreeable to VN on d/c.
Patient has a private aide 5 days a week 9 am till 2 pm. The aide will be able to transport home between those hours only.
Aide is not available after hours, holidays or weekends.
Patient is not able to transport himself home and if d/c is on a day aide is not available then Lyft will need to be arranged.
Plan: CM will follow for d/c home with [facility], private aides and transportation as needed.
Addendum entered by Susanne Norton 04/24/24 14:02:
Spoke with patient bedside.
Patient agreeable to home with [facility].
Per patient he did have his medications and was taking them.
Per patient he plans on driving home from the hospital, explained we would need to see how he is at time of d/c and maybe his family could transport.
Received TC from patients daughter Clair, p# [phone].
Original Note:
TC to [facility], per pharmacist, Rx was received for Keflex 04/19/24, and delivered to patient that evening.
Patient receives medications via blister packs from pharmacy.
Medications are delivered to patients home.
[facility] did see patient 04/20/24.
[2024-04-24] MEDS: NOVOLOG FLEXPEN-LOW RESISTANCE SC ×3 (09:07→17:19)
[2024-04-24] MEDS: ELIQUIS 5 MG PO ×2 (09:10→20:42)
[2024-04-24] MEDS: ANCEF 10 IV ×3 (09:10→23:34)
[2024-04-24] MEDS: FEOSOL 325 MG PO (09:12)
[2024-04-24] MEDS: FLORINEF 0.2 MG PO (09:12)
[2024-04-24] MEDS: ProAmatine 5 MG PO ×2 (09:13→13:13)
[2024-04-24] MEDS: PRAVACHOL 40 MG PO (09:13)
[2024-04-24] MEDS: ULTRAM 50 MG PO ×2 (09:20→20:51)
--- NOTE | 2024-04-24 10:51 | WOUNDNOTE ---
R 3RD TOE
--- NOTE | 2024-04-24 10:52 | WOUNDNOTE ---
R MEDIAL LOWER LEG
--- NOTE | 2024-04-24 10:53 | WOUNDNOTE ---
R DORSAL FOOT AFTER CLEANING
--- NOTE | 2024-04-24 10:55 | WOUNDNOTE ---
WON RN note: Patient admitted with cellulitis of R leg.
See H&P for complete history. Lives at home with .
PMH: Lymphedema of legs, R leg cellulitis, NIDDM, chronic R dorsal foot ulcer, foot drop, neuropathy, CVA, A fib, UTI, FL, CAD,HTN, difficulty urinating/retention.
Patient admitted with R leg cellulitis/edema. Skin warm and dry, + pedal pulses. Reviewed arterial study from 04/17/24, MRI of R foot same time, no osteo or abscess. R dorsal foot scab fell off with cleaning, revealing essentially healed ulcer. R
lateral and medial lower leg with scattered intact serous filled blisters. L lower leg with small venous ulcer, pink mixed with yellow, dry skin on legs. Patient states he does not use compression stockings at home and does not follow any MD's for
legs. R Leg less red and swollen states patient. Patient ambulated self from chair to bed, turns self. Sacrum and heels are intact.
Appetite: Good
Plan: Honey gel and silicone foam to L leg. R leg local wound care. Moisturize legs with mineral oil daily. Tubigrip size G knee high daily. Leg elevation when sitting. Will confirm orders with hospitalist and updated nurse Will. Called [facility] for
honey gel and Tubigrip.
Updated care plan and will follow as needed.
Note to case management of equipment requested for discharge: VN
Recommend follow up at wound care center upon discharge.
[2024-04-24 12:04] LABS: Glucose - Point of Care 143 mg/dl (70-99)
--- NOTE | 2024-04-24 14:30 | CON.ID ---
Consultation
-
Date/Time Consultation Requested: 04/24/24 13:39
Date/Time Consultation Performed: 04/24/24 14:30
Requesting Provider: Dr Perkins
Performing Provider: Dr Larios
Reason for Consultation: worsening right lower extremity cellulitis
Chief Complaint / Past History
Chief Complaint
Increasing redness of right lower extremity
History of Present Illness
Mr Bennett is an 78 year old male with history of dementia, foot drop using brace who presented here 04/22 for progressive right lower extremity swelling, redness, which has been ongoing for several weeks first seen in the ER 04/01 (prescribed keflex,
later revealed he didnt take it), again 04/10 (clindamycin, no improvement) and again 04/12. During the 04/12 admission he was found to have a shallow ulceration on the dorsum of the foot, prescribed keflex 500 mg PO q8hrs ; no fevers or chills.
Family were reportedly concerned that he might be missing doses of antibiotics and he was referred here. Staff have noted scattered skin tears and ecchymoses. when I ask patient how frequently he was taking his antibiotics he says 'I dont know,
maybe twice a day? when i was supposed to,' while he has an aide they are only there 4 hours a day and by definition would not be able to help with all of the doses that were planned
Since arrival patient has been afebrile, bp stable, wbc initially 5.4 and today 6.1, hgb 12.3, plt 92, minimal L shift present on arrival and persists, cr 0.8, a1c earlier this month 5.8, MRI 04/17 severe cellulitis doral right foot, severe diffuse
muscle denervation, no evidence of osteo,
Past History
Additional Past Medical History:
gastric bypass, choledocholithiasiswith LAMS stent, history of GI bleeding from stent irritation/erosion, GERD, HFpEF, paroxysmal atrial fibrillation, cognitive impairment, CVA, hyperlipidemia, chronic right foot drop, orthostatic hypotension,
hypertension, diabetes, anxiety/depression, superficial
Additional Past Surgical History:
Cholecystectomy, Orthopedic and Other (Gastric bypass) , EDGE procedure done at [place] in April 2023 for choledocholithiasis and had Axios stent placement at that time
Allergy History:
meperidine HCl [From Demerol] Allergy (Verified 04/22/24 13:22)
gets hyper
ondansetron [From Zofran] Allergy (Verified 04/22/24 13:22)
N/V
Medications Reviewed: Yes
Social History
Tobacco: Former Smoker
Alcohol: Occasional
Drug: None
Family History
Family History: Not Pertinent
Review of Systems
Review of Systems
General: Negative Fever or Chills
All systems: All other systems were reviewed and were negative
Vital Signs
Temp Pulse Resp BP Pulse Ox
97.8 F 60 18 127/86 98
04/24/24 07:00 04/24/24 09:13 04/24/24 07:00 04/24/24 09:13 04/24/24 07:00
Physical Exam
Physical Exam
Constitutional: No Acute Distress
Cardiovascular: Regular Rate and S1/S2; Negative Murmur or Rub
Pulmonary: Clear and Symmetric; Negative Wheezes, Rales or Rhonchi
Gastrointestinal: Soft, Non Tender, Non Distended and Normal Bowel Sounds
Skin: Warm and Dry; Negative Rash or Jaundice
Wound: Other (superficial abrasion over the dorsal right foot; diffuse erythema, no purulence, 1+ pitting edema, tubigrips in place)
Lab / Diagnostic Study Results
04/24/24 06:20
04/24/24 06:20
Abs Immat Gran (auto) 0.0 10^3/uL (0-0.05) 04/24/24 06:20
Absolute Neuts (auto) 4.6 10^3/uL (1.4-6.5) 04/24/24 06:20
Absolute Lymphs (auto) 0.5 10^3/uL (1.2-3.4) L 04/24/24 06:20
Absolute Monos (auto) 0.9 10^3/uL (0.1-0.6) H 04/24/24 06:20
Absolute Basos (auto) 0.0 10^3/uL (0-0.2) 04/24/24 06:20
Immature Gran % 0.3 % (0-0.5) 04/24/24 06:20
Neutrophils % 76.0 % (42.2-75.2) H 04/24/24 06:20
Lymphocytes % 7.9 % (20.5-51.1) L 04/24/24 06:20
Monocytes % 14.3 % (1.7-9.3) H 04/24/24 06:20
Eosinophils % 1.0 % (0-6) 04/24/24 06:20
Basophils % 0.5 % (0-2) 04/24/24 06:20
Assessment / Plan
Nonpurulent cellulitis
Chronic wound on the dorsum of the foot
Foot drop - chronic
DM2 controlled
Noncompliance
- noncompliance does seem to be the issue, when I ask patient how frequently he was taking his antibiotics he say 'I dont know, maybe twice a day? when i was supposed to,' while he has an aide they are only there 4 hours a day and by definition
would not be able to help with all of the doses that were planned
- spoke with caser in patient is refusing placement and it isnt being recommended by PT
- will work with pharmacy to consider whether he might be a candidate for a long acting lipoglycopeptide (dalbavancin, oritivancin) single dose of IV therapy which has an effective serum level for approximately 1 week
- continue cefazolin for now
- continue compression, elevation as tolerated
- MRI foot completed recently without apparent abscess
[2024-04-24 15:00] VITALS: BP 148/78
--- NOTE | 2024-04-24 15:46 | W.PN.HOSP.TC ---
Addendum entered and electronically signed by Jules Perkins MD 04/24/24 15:50:
Start Neurontin for neuropathic pain
Original Note:
Today's Communication/Plan
-
Continue IV antibiotics per
Continue local wound care
Assessment / Plan
Assessment / Plan
Persistent right lower extremity cellulitis without purulence
Recent MRI with no abscess
Recent vascular evaluation with no acute insufficiency.
-Possibly related to missed doses of oral antibiotics
-Continue Ancef. Infectious disease input appreciated
-Consult Wound Care
-Per prior discharge patient needs continued lower extremity lymphedema treatment
Per patient he has not been able to fill his medications as he has no way to get those medications. Will need mental health case manager evaluation.
Chronic HFpEF
-Monitor Is&Os and Daily Weights
-Unclear if patient is taking Lasix; monitor.
Permanent Atrial Fibrillation
-Continue Eliquis for anticoagulation
-Unclear if patient is taking digoxin
Diabetes Mellitus, Type II
-Hold metformin
-HgbA1c 5.8 on 04/15/2024
ISS,accuchecks
Chronic Thrombocytopenia
monitor
Senile Dementia
-Continue donepezil
Orthostatic Hypotension
-Continue midodrine and fludrocortisone
Hx CVA with Residual Right Foot Drop
DVT proph: Eliquis
Code Status: Full Code
Anticipated Discharge: 24 - 48 hours
Subjective/Interval History
-
Date of Service: April 24, 2024
Objective Data
-
Labs:
Laboratory Results
04/24/24
06:20
WBC 6.1
Hgb 12.3 L
Hct 34.2 L
Plt Count 92 L
Sodium Cancelled
Potassium Cancelled
Chloride Cancelled
Carbon Dioxide Cancelled
BUN Cancelled
Creatinine Cancelled
Glucose Cancelled
Calcium Cancelled
Vital Signs:
Vital Signs
Temp Pulse Resp BP Pulse Ox
97.8 F 60 18 127/86 98
04/24/24 07:00 04/24/24 09:13 04/24/24 07:00 04/24/24 09:13 04/24/24 07:00
I&O
04/23/24 04/24/24 04/25/24
06:59 06:59 06:59
Intake Total 1440 / 1440 2280 / 2280
Balance 1440 / 1440 2280 / 2280
Physical Exam
-
General: Negative Appears in Distress
HEENT: Negative Oxygen
Respiratory: Clear to Auscultation
Cardiac: S1/S2 and Irregular Rhythm; Negative Murmur
Musculoskeletal: No Edema and Other (Bilateral lower extremity erythema with induration. Right foot with superficial wound and scab, warm)
Neuro: Awake, Alert, Oriented and No Motor Deficits
[2024-04-24 17:00] LABS: Glucose - Point of Care 147 mg/dl (70-99)
[2024-04-24] MEDS: NEURONTIN 300 MG PO ×2 (17:19→20:51)
[2024-04-24] MEDS: ProAmatine PO (17:21)
[2024-04-24] MEDS: ARICEPT 10 MG PO (20:51)
[2024-04-24 22:05] LABS: Glucose - Point of Care 213 mg/dl (70-99)
[2024-04-24 23:12] VITALS: BP 138/65
[2024-04-24] MEDS: DILAUDID 0.25 MG IV (23:35)
[2024-04-25] MEDS: TYLENOL 650 MG PO ×2 (00:38→10:25)
[2024-04-25] MEDS: DILAUDID 0.25 MG IV ×2 (04:54→21:00)
[2024-04-25 06:00] VITALS: BMI 31.3
[2024-04-25 07:40] VITALS: BP 155/88
[2024-04-25 07:51] LABS: Glucose - Point of Care 154 mg/dl (70-99)
[2024-04-25] MEDS: NOVOLOG FLEXPEN-LOW RESISTANCE 1 UNITS SC (08:51)
[2024-04-25] MEDS: ANCEF 10 IV (08:52)
[2024-04-25] MEDS: PRAVACHOL 40 MG PO (08:57)
[2024-04-25] MEDS: ELIQUIS 5 MG PO ×2 (08:57→20:58)
[2024-04-25] MEDS: FLORINEF 0.2 MG PO (08:58)
[2024-04-25] MEDS: FEOSOL 325 MG PO (08:58)
[2024-04-25] MEDS: HYDROPHOR 1 APPLIC TOPICAL (08:59)
[2024-04-25] MEDS: NEURONTIN 300 MG PO ×3 (09:07→20:57)
[2024-04-25] MEDS: ProAmatine PO ×2 (09:08→14:32)
[2024-04-25 11:28] VITALS: BP 148/74; PULSE 47; O2SAT 98
[2024-04-25 12:08] LABS: Glucose - Point of Care 148 mg/dl (70-99)
[2024-04-25] MEDS: NOVOLOG FLEXPEN-LOW RESISTANCE SC ×2 (12:21→17:21)
--- NOTE | 2024-04-25 12:27 | CM ---
Chart reviewed and catalytic case operator spoke with patient and daughter along with physicians this am, and patient to have dose of Dalbavancin prior to discharge, per patient's daughter and [place] K[facility] paperwork on chart, she plans on picking patient up
tomorrow 04/26/24, between 10am-12am patient to return to home with aides and [facility]. [facility] and patient receives [facility] through [facility]. Per patient's daughter she spoke with patient's PCP in past regarding patient
driving.
Plan; Home tomorrow with [facility]
--- NOTE | 2024-04-25 12:39 | W.PN.ID1 ---
Date of Service
Date of Service: April 25, 2024
Today's Communication
dalbavancin, then stable for dc from ID perspective
Assessment / Plan
Nonpurulent cellulitis
Chronic wound on the dorsum of the foot
Foot drop - chronic
DM2 controlled
Noncompliance
- discussion with patients POA/daughter Clair - she reports that aide supervised first two doses of antibiotics and she had a zoom call with him every night to supervise the 3rd.
- given partial response/frequent relapses still favor a course of dalbavancin, ordered; stopped cefazolin
- compression and elevation remain important - he is tolerating tubigrips and will continue with this on discharge
- has follow up with lymphedema center may 10 per daughter
- can see me in follow up in 6-8 weeks, if we see another relapse we'll consider 6-12 months of suppression
Chief Complaint
-: Other (cellulitis)
Subjective / Review of Systems
afebrile
bp stable
Vital Signs / Physical Exam
Vital Signs
Vital Signs
Temp Pulse Resp BP Pulse Ox
97.4 F 60 16 155/88 97
04/25/24 07:40 04/25/24 07:40 04/25/24 07:40 04/25/24 07:40 04/24/24 23:12
Physical Exam
Constitutional: No Acute Distress
Cardiovascular: Regular Rate and S1/S2; Negative Murmur or Rub
Pulmonary: Clear and Symmetric; Negative Wheezes or Rales
Gastrointestinal: Soft, Non Tender, Non Distended and Normal Bowel Sounds
Skin: Warm, Dry and Rash (mild redness of the RLE, there are flacid, serous fluid filled bullae on the RLE, tubigrips ); Negative Jaundice
Objective Data
Lab Data
Lab Results
04/24/24 06:20
04/24/24 06:20
Estimated Creat Clear Cancelled 04/24/24 06:20
Total Bilirubin 0.6 mg/dl (0.2-1.3) 04/22/24 13:30
AST 31 U/L (17-59) 04/22/24 13:30
ALT 17 U/L (0-50) 04/22/24 13:30
Alkaline Phosphatase 82 U/L (38-126) 04/22/24 13:30
Most recent labs reviewed.
Care Review
Plan reviewed with: Physician (Dr Gregorio steel, dispo)
[2024-04-25] MEDS: DALVANCE 575 MG IV (13:27)
[2024-04-25] MEDS: D5W 10 ML IV ×2 (13:28→14:45)
--- NOTE | 2024-04-25 14:31 | VNURNOTE ---
Home health liaison met with patient to discuss [facility] services, visit scheduling/frequency, homebound status and pet policy. Patient understands home visits will start at 2 times a week to assess and teach medical management. Patient aware a
visiting nurse will contact them for start of care within 1-2 days after discharge from . [facility] Referral completed in care port. [facility] brochure given to patient
--- NOTE | 2024-04-25 15:13 | W.PN.HOSP.TC ---
Today's Communication/Plan
-
Cefazolin discontinued.
Status post single dose of dalbavancin administered today.
Plan is to discharge tomorrow to follow-up with ID as outpatient for response.
Initiated on Neurontin for neuropathic pain in addition to tramadol.
Assessment / Plan
Assessment / Plan
Persistent right lower extremity cellulitis without purulence
Recent MRI with no abscess
Recent vascular evaluation with no acute insufficiency.
-Possibly related to missed doses of oral antibiotics
Infectious disease input appreciated.
Patient received dose of dalbavancin 1500 mg on 04/25. That will cover for 7 days to assure appropriate treatment for cellulitis.
Will follow with infectious disease service as outpatient to monitor response.
Permanent Atrial Fibrillation
-Continue Eliquis for anticoagulation
Rate controlled. 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
Orthostatic hypotension
Continue midodrine and fludrocortisone
Diabetes Mellitus, Type II
-HgbA1c 5.8 on 04/15/2024
Diet controlled. Had been euglycemic.
Chronic Thrombocytopenia
monitor
Senile Dementia
-Continue donepezil
Hx CVA with Residual Right Foot Drop
DVT proph: Eliquis
Code Status: Full Code
Anticipated Discharge: Within 24 hours
Subjective/Interval History
-
Date of Service: April 25, 2024
Objective Data
-
Vital Signs:
Vital Signs
Temp Pulse Resp BP Pulse Ox
97.4 F 60 16 133/78 97
04/25/24 07:40 04/25/24 07:40 04/25/24 07:40 04/25/24 14:32 04/24/24 23:12
I&O
04/24/24 04/25/24 04/26/24
06:59 06:59 06:59
Intake Total 2280 / 2280 2400 / 2400
Balance 2279
Physical Exam
-
General: Negative Appears in Distress
HEENT: Negative Oxygen
Respiratory: Clear to Auscultation
Cardiac: S1/S2 and Irregular Rhythm; Negative Murmur
Musculoskeletal: No Edema and Other (Bilateral lower extremity erythema with induration. Right foot with superficial wound and scab, warm)
Neuro: Awake, Alert, Oriented and No Motor Deficits
[2024-04-25 15:30] VITALS: BP 102/75
[2024-04-25 17:15] LABS: Glucose - Point of Care 133 mg/dl (70-99)
[2024-04-25] MEDS: ProAmatine 5 MG PO (17:26)
[2024-04-25] MEDS: ARICEPT 10 MG PO (20:58)
[2024-04-25 22:04] LABS: Glucose - Point of Care 135 mg/dl (70-99)
[2024-04-25 22:39] VITALS: PULSE 79
[2024-04-25 23:24] VITALS: BP 144/71
[2024-04-26 06:00] VITALS: BMI 31.5
[2024-04-26 07:35] VITALS: BP 129/67
[2024-04-26 07:57] LABS: Glucose - Point of Care 133 mg/dl (70-99)
[2024-04-26] MEDS: PRAVACHOL 40 MG PO (09:26)
[2024-04-26] MEDS: NOVOLOG FLEXPEN-LOW RESISTANCE SC (09:26)
[2024-04-26] MEDS: FLORINEF 0.2 MG PO (09:27)
[2024-04-26] MEDS: NEURONTIN 300 MG PO (09:27)
[2024-04-26] MEDS: FEOSOL 325 MG PO (09:27)
[2024-04-26] MEDS: ELIQUIS 5 MG PO (09:27)
[2024-04-26] MEDS: HYDROPHOR 1 APPLIC TOPICAL (09:27)
[2024-04-26] MEDS: ProAmatine 5 MG PO ×2 (09:27→12:19)
--- NOTE | 2024-04-26 11:24 | W.PN.HOSP.TC ---
Today's Communication/Plan
-
Ok for DC today
Assessment / Plan
Assessment / Plan
Persistent right lower extremity cellulitis without purulence
Recent MRI with no abscess
Recent vascular evaluation with no acute insufficiency.
-Possibly related to missed doses of oral antibiotics
Infectious disease input appreciated.
Patient received dose of dalbavancin 1500 mg on 04/25. That will cover for 7 days to assure appropriate treatment for cellulitis.
Will follow with infectious disease service as outpatient to monitor response.
Permanent Atrial Fibrillation
-Continue Eliquis for anticoagulation
Rate controlled. 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
Orthostatic hypotension
Continue midodrine and fludrocortisone
Diabetes Mellitus, Type II
-HgbA1c 5.8 on 04/15/2024
Diet controlled. Had been euglycemic.
Chronic Thrombocytopenia
monitor
Senile Dementia
-Continue donepezil
Hx CVA with Residual Right Foot Drop
DVT proph: Eliquis
Code Status: Full Code
Anticipated Discharge: Today
Subjective/Interval History
-
Date of Service: April 26, 2024
feels ready to go home
Objective Data
-
Vital Signs:
Vital Signs
Temp Pulse Resp BP Pulse Ox
97.5 F 57 18 129/67 100
04/26/24 07:35 04/26/24 07:35 04/26/24 07:35 04/26/24 07:35 04/26/24 07:35
I&O
04/25/24 04/26/24 04/27/24
06:59 06:59 06:59
Intake Total 2400 / 2400 1020 / 1020
Balance 2400 / 2400 1020 / 1020
Review of Systems
-
History Source: Patient
All other systems: Reviewed and negative
Physical Exam
-
General: Negative Appears in Distress
HEENT: Negative Oxygen
Respiratory: Clear to Auscultation
Cardiac: S1/S2 and Irregular Rhythm; Negative Murmur
Musculoskeletal: No Edema and Other (Bilateral lower extremity erythema with induration. Right foot with superficial wound and scab, warm)
Neuro: Awake, Alert, Oriented and No Motor Deficits
Data Reviewed
-
Diagnostic Radiology: Report Reviewed by me
Labs: Labs Reviewed by me
--- NOTE | 2024-04-26 11:38 | W.DS.TRANS ---
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
-
Discharge Instructions:
Discharge Diagnosis/Procedures Recurrent right foot cellulitis with chronic
lymphedema
Diet Diabetic, Carb Controlled
Driving Restrictions As prior to admission
Instructions:
Stand-Alone Forms:
Changes to Home Medications: Yes
Discharge Medications:
DC Medications w/original date entered in [facility]
apixaban 5 mg tablet (Eliquis) 5 mg PO BID Blood Clot Prevention/Tx #60 tabs 05/21/23
lidocaine 4 % topical patch 1 patch topical DAILY Pain #10 ea 03/18/24
midodrine 5 mg tablet 5 mg PO TID hypotension 04/15/24
tramadol 50 mg tablet 50 mg PO BIDPRN PRN Pain 04/15/24
cholecalciferol (vitamin D3) 25 mcg (1,000 unit) tablet (Vitamin D3) 25 mcg PO DAILY Supplement 04/22/24
donepezil 10 mg tablet 10 mg PO HS Dementia 04/22/24
ferrous sulfate 325 mg (65 mg iron) tablet 325 mg PO DAILY Supplement 04/22/24
fludrocortisone 0.1 mg tablet 0.2 mg PO DAILY 04/22/24
pravastatin 40 mg tablet 40 mg PO DAILY High Cholesterol 04/22/24
vibegron 75 mg tablet (Gemtesa) 75 mg PO DAILY Urinary Issue 04/22/24
gabapentin 300 mg capsule 300 mg PO TID #90 caps 04/25/24
digoxin 125 mcg (0.125 mg) tablet 125 mcg PO DAILY #30 tabs 04/26/24
furosemide 20 mg tablet (Lasix) 20 mg PO DAILY #30 tabs 04/26/24
tamsulosin 0.4 mg capsule (Flomax) 0.4 mg PO DAILY #30 caps 04/26/24
Home Medication Changes
addition of Gabapentin
Pending Results: No
--- NOTE | 2024-04-26 13:46 | CM ---
Plan: Discharge to home today [facility]; has transport home
--- NOTE | 2024-04-26 13:53 | W.DCSUMMARY ---
Discharge Summary
Discharge Data
Date of Admission: 04/25/24
Date of Discharge: 04/26/24
-
Pending Results: No
Hospital Course
Discharging Physician : Dr. Alisia Tobin
Disposition : Home
Primary care physician : Dr. William Renner
Principal Discharge diagnosis :
Persistent right lower extremity cellulitis without purulence
Hospital Course :
Mr. Vasu Bennett is an 78-year-old male with past medical history of CVA with residual right lower extremity weakness/right foot drop, ambulatory dysfunction, hypertension, paroxysmal atrial fibrillation, diabetes mellitus, orthostatic hypotension,
chronic thrombocytopenia, BPH came to the hospital with worsening right lower extremity cellulitis. Patient with history of medication non-compliance and it was unclear if he was taking his antibiotics. He received a dose of IV Dalbavancin 1500mg
on 04/25 which will cover him for 7 days. He will follow up with his PCP and ID.
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
Time spent on discharge was 32 minutes.
Important imaging findings :
Procedure findings :
Discharge Plan
-
Patient Disposition: Home (Routine Discharge)
Discharge Diagnosis/Procedures: Recurrent right foot cellulitis with chronic lymphedema
Condition: Good
Diet: Diabetic, Carb Controlled
Driving Restrictions: As prior to admission
Activity Restrictions/Additional Instructions:
Wound Care Instructions
legs: clean with saline or soap and water both legs daily, moisturize legs and feet with mineral oil daily
L lower leg: Honey gel and silicone foam change daily.
R leg: adaptic, abd pad and jenn change daily and prn drainage.
Tubigrip size G knee high daily. Leg elevation when sitting.
Follow up at wound care center call for an appointment.
Referrals:
William Renner, DO [Family Provider] - in less than 1 week
Sonja Larios MD [Active] - in four to six weeks
Additional Discharge Medication Instructions: Stop: Keflex, Doxycycline
Please Resume Lasix 20mg PO QD if you were taking that at home
OK to stop Metformin as your diabetes if very well controlled - please discuss this with your PCP
Prescriptions:
New
gabapentin 300 mg Capsule
300 mg PO TID Qty: 90 0RF
tamsulosin [Flomax] 0.4 mg capsule
0.4 mg PO DAILY Qty: 30 0RF
digoxin 125 mcg (0.125 mg) tablet
125 mcg PO DAILY Qty: 30 0RF
furosemide [Lasix] 20 mg tablet
20 mg PO DAILY Qty: 30 0RF
Continued
Eliquis 5 mg Tablet
5 mg PO BID Qty: 60 0RF
lidocaine 4 % adhesive patch,medicated
1 patch topical DAILY Qty: 10 0RF
midodrine 5 mg tablet
5 mg PO TID
Rx Instructions:
Take 1 extra pill if feeling dizzy AND Systolic blood pressure < 100
tramadol 50 mg tablet
50 mg PO BIDPRN PRN (Reason: Pain)
pravastatin 40 mg Tablet
40 mg PO DAILY
donepezil 10 mg Tablet
10 mg PO HS
ferrous sulfate 325 mg (65 mg iron) Tablet
325 mg PO DAILY
fludrocortisone 0.1 mg Tablet
0.2 mg PO DAILY
cholecalciferol (vitamin D3) [Vitamin D3] 25 mcg (1,000 unit) Tablet
25 mcg PO DAILY
Gemtesa 75 mg Tablet
75 mg PO DAILY
Discontinued
metformin 500 mg Tablet
500 mg PO DAILY
tamsulosin [Flomax] 0.4 mg Capsule
0.4 mg PO DAILY
digoxin 125 mcg (0.125 mg) Tablet
125 mcg PO DAILY
furosemide 20 mg Tablet
20 mg PO DAILY
cephalexin 500 mg capsule
500 mg PO Q8H
Discharge Orders:
Discharge Patient (As Directed); Ordered 04/26/24
Ordered By: Alisia Tobin
Discharge Date and Time
Discharge Date/Time: 04/26/24 13:55
Print Language: [place] ISLAND[place]
--- NOTE | 2024-04-26 15:30 | PTCARENOTE ---
Pt had been discharged to home, discharge instructions found in room after pt had left hospital. Call placed to pt's daughter, Clair. Explained instructions and photos of instructions sent to daughter via text message.
== END 2024-04-26 13:55 | disposition home health service (06) | DRG 603 ==
LOC: 4 WEST ACU 12:18
PROVIDERS: Emergency Medicine; Internal Medicine; Physician Assistant Medical; ADMITTING PHYSICIAN Internal Medicine; ATTENDING PHYSICIAN Student in an Organized Health Care Education/Training Program; EMERGENCY PHYSICIAN Emergency Medicine; FAMILY PHYSICIAN Family Medicine; OTHER PHYSICIAN Student in an Organized Health Care Education/Training Program
DX: L03.115 Cellulitis of right lower limb (principal); F03.93 Unspecified dementia, unspecified severity, with mood disturbance; F03.94 Unspecified dementia, unspecified severity, with anxiety; I48.21 Permanent atrial fibrillation; I50.32 Chronic diastolic (congestive) heart failure; E11.40 Type 2 diabetes mellitus with diabetic neuropathy, unspecified; E66.9 Obesity, unspecified; E78.00 Pure hypercholesterolemia, unspecified; G47.33 Obstructive sleep apnea (adult) (pediatric); I11.0 Hypertensive heart disease with heart failure; I25.10 Atherosclerotic heart disease of native coronary artery without angina pectoris; I89.0 Lymphedema, not elsewhere classified; I95.1 Orthostatic hypotension; E11.621 Type 2 diabetes mellitus with foot ulcer; L97.511 Non-pressure chronic ulcer of other part of right foot limited to breakdown of skin; I69.341 Monoplegia of lower limb following cerebral infarction affecting right dominant side; M21.371 Foot drop, right foot; T36.1X6A Underdosing of cephalosporins and other beta-lactam antibiotics, initial encounter; K21.9 Gastro-esophageal reflux disease without esophagitis; D69.6 Thrombocytopenia, unspecified; Z79.01 Long term (current) use of anticoagulants; Z79.84 Long term (current) use of oral hypoglycemic drugs; Z98.84 Bariatric surgery status; Z96.643 Presence of artificial hip joint, bilateral; Z96.651 Presence of right artificial knee joint; Z95.5 Presence of coronary angioplasty implant and graft; Z87.891 Personal history of nicotine dependence; Z91.138 Patient's unintentional underdosing of medication regimen for other reason; Z68.31 Body mass index [BMI] 31.0-31.9, adult
CPT/HCPCS: 80048; 80053; 80162; 82962; 85025; 85027; 94660; 96365; 96366; 96375; 97116; 97162; 97165; 97530; 99284; J0875

== ENCOUNTER 2024-05-06 09:56 | Emergency (ER) | payer OTHER, SELFPAY ==
[2024-05-06 09:58] VITALS: BP 159/71
[2024-05-06 10:59] VITALS: BMI 32.6
--- NOTE | 2024-05-06 10:59 | ED.GENMED ---
History of Present Illness
General
Chief Complaint: Skin Problem
Source: patient
Exam Limitations: none
Time Seen by Provider: 05/06/24 10:25
Nursing documentation reviewed up to this point in time: agreed with
History of Present Illness
History of Present Illness:
Patient is an 78-year-old male with past medical history of CVA with residual right lower extremity weakness paroxysmal A-fib diabetes orthostatic hypotension chronic thrombocytopenia BPH who presents to the ER for evaluation of right leg pain.
Patient started feeling pain to the right leg last night. He called EMS today. Upon arrival to the [facility] noticed redness to the right lower leg. He was not aware of this until today.
Patient has no other complaints. He denies any fever chills pain. Patient has obvious bruising to chest and arms. When asked he states he is on Eliquis but is not sure if he is taking every day. Patient is a very poor historian.
Prior review of records patient was just discharged April 26 for right lower extremity swelling/cellulitis. It is documented that patient has a history of medication noncompliance and was given 1500 mg of Dalbavancin on 04/25
Past History
Past History
ED Past Medical History: Arrthythmia (Atrial fibrillation), CAD, CHF, CVA (with right sided weakness), GERD, HTN, Hypercholesterolemia, NIDDM, CA, Psychiatric (Anxiety, Depression) and Other (GI bleed, GI stent, Orthostatic hypotension, Iron
deficiency anemia, Neuropathy, Sleep apnea, UTI, )
ED Past Surgical History: Cardiac (stent), Cholecystectomy, Orthopedic (Bilateral hip replacements, Left rotator cuff surgery, Right knee replacement) and Other (Gastric bypass)
Patient has exhibited threatening behavior?: No
PSI?: No
Social History
Tobacco: Former smoker
Alcohol: None
Drug: None
Personal:
Living: with family
Employment: Not employed
Family History
Family History: Other (Reviewed and Noncontributory)
Review of Systems
Review of Systems
Allergies reviewed?: Yes
Unable to obtain full review of systems at this time due to: other (Limited historian)
All Other Systems: ROS reviewed and negative except as documented in HPI and ROS
Constitutional: Reports no symptoms; Denies fever, fatigue or chills
Respiratory: Reports no symptoms
Cardiac: Reports no symptoms
ABD/GI: Reports no symptoms
Musculoskeletal: Reports other (Pain to right leg started last night )
Skin: Reports no symptoms
Neurological: Reports no symptoms
Psychiatric: Reports no symptoms
Phy Exam
General Physical Exam
General Presentation: no apparent distress
General age: appears stated age
General Skin: warm and dry
General Habitus: normal
General Mental: alert
General Hydration: appears well hydrated
Course
Orders/Labs/Results
Orders:
Orders
05/06/24 10:59
Venous Doppler Lwr Ext Bilat [US Periph Venous LOWER Ext Franc] Urgent
Comment:
Reason For Exam: swelling b/l l/e
05/06/24 11:00
IV Insert/Care/Rem.- Treatment PRN
05/06/24 11:05
Complete Blood Count/With Diff Urgent
05/06/24 11:29
Comprehensive Metabolic Panel Urgent
Digoxin Urgent
Abnormal Lab Results
05/06/24 05/06/24
11:05 11:29
RBC 3.90 L 10^6/uL
(4.70-6.10)
Hgb 12.2 L g/dL
(13.0-18.0)
Hct 37.8 L %
(39.0-52.0)
MCV 96.9 H fL
(80.0-94.0)
MCH 31.3 H pg
(27.0-31.0)
MCHC 32.3 L g/dL
(33.0-37.0)
Plt Count 117 L 10^3/uL
(130-400)
Absolute Lymphs (auto) 0.4 L 10^3/uL
(1.2-3.4)
Absolute Monos (auto) 0.9 H 10^3/uL
(0.1-0.6)
Neutrophils % 77.0 H %
(42.2-75.2)
Lymphocytes % 6.3 L %
(20.5-51.1)
Monocytes % 14.8 H %
(1.7-9.3)
BUN 29 H mg/dl
(9-20)
Glucose 136 H mg/dl
(70-99)
Total Protein 6.2 L g/dl
(6.3-8.2)
Digoxin < 0.4 L ng/ml
(0.8-2.0)
05/06/24 11:05
05/06/24 11:29
Vital Signs
Initial and Last Documented VS:
Initial Vital Signs
Temp Pulse Resp BP Pulse Ox
97.4 F 76 16 159/71 98
05/06/24 09:58 05/06/24 09:58 05/06/24 09:58 05/06/24 09:58 05/06/24 09:58
Last Documented Vital Signs
Temp Pulse Resp BP Pulse Ox
97.4 F 66 16 159/71 99
05/06/24 09:58 05/06/24 14:05 05/06/24 14:00 05/06/24 09:58 05/06/24 13:47
MDM/Problems Addressed
MDM/Problems Addressed:
Pt presents for pain in b/l legs. Pt presented via EMS and he lives with . PT just d/c from here for cellulitis and as documented received IV long acting antibx due to prior non complaisance . Pt is a poor historian however in no
distress non toxic afebrile very minimal redness to right legs there is bilateral swelling to lower extremities. He is not short of breath he is not hypoxic and afebrile.
He is in no acute distress. he denies any shortness of breath. Patient's white count is normal his ultrasounds are negative.He has no complaints here in the ED.
I spoke with daughter at length who is the power of flexographic press helper who reports the patient does have chronic leg pain is on gabapentin however has not had that medication in the past couple days and also has not had his Lasix in the past couple days.
She however has all medications at home and there is an aide who is with patient several times a week.HE does have memory issues however just needs a formal diagnosis of dementia and they are waiting to see neurology.
Leg pain is likely chronic. His cellulitis appears to be improving and he is in no acute distress. here he is afebrile nontoxic with a normal white blood count. His BUN is mildly elevated however he ate and drank here. Due to lower extremity
swelling ultrasounds were done and negative. He is on gabapentin for chronic leg pain and has not had this which is likely the cause of his leg pain. His legs are swollen and he missed several doses of Lasix however daughter reports all
medications are home and she will ensure that he does get his medications. Patient's cares for patient at home with an aide who will be back on Wednesday.
Daughter reports patient's car is here in the parking lot from prior admission however with memory issues patient is not safe to drive home will ensure that patient has wheelchair van. Daughter reports patient's will be able to accept patient
back into patient's house and she will ensure that he gets all of his medications.
Chronic conditions affecting care:
Chronic leg pain chronic memory issues
*Radiology
Radiology exam reviewed: radiology read reviewed
*Pulse Oximetry
Patient hypoxic: no
*Critical Care Note
Total Time (30-74mins, 75-104mins- exclusive of procedures): Not Applicable
Data Reviewed
Review of Other/Old Records Reveals: Labs and Discharge Summary
Source: patient and family (Daughter( power of flexographic press helper))
Update Note
Update Note:
Patient called back to the ER and stated that he does not have his gabapentin or Lasix at home.
these prescriptions were sent to [facility] pharmacy. His [facility] pharmacy is currently not open.
ED Attending Note
-
Portions of this chart may have been created with voice recognition software.� Occasional wrong word or��sound alike� substitutions may have occurred due to the inherent limitations of voice recognition software.
Discharge Plan
Departure
Patient Disposition: Home (Routine Discharge)
Date of Disposition: 05/06/24
Time of Disposition: 15:00
Patient with high blood pressure during this ER visit?: Yes
Condition: Fair
Covid-19: Not Applicable
Discharge Problem:
Leg pain
Instructions: BLOOD PRESSURE
Prescriptions:
New
gabapentin 300 mg capsule
300 mg PO TID Qty: 10 0RF
furosemide [Lasix] 20 mg tablet
20 mg PO DAILY Qty: 10 0RF
No Action
Eliquis 5 mg Tablet
5 mg PO BID Qty: 60 0RF
midodrine 5 mg tablet
5 mg PO TID
Rx Instructions:
Take 1 extra pill if feeling dizzy AND Systolic blood pressure < 100
tramadol 50 mg tablet
50 mg PO BIDPRN PRN (Reason: Pain)
pravastatin 40 mg Tablet
40 mg PO DAILY
donepezil 10 mg Tablet
10 mg PO HS
fludrocortisone 0.1 mg Tablet
0.2 mg PO DAILY
cholecalciferol (vitamin D3) [Vitamin D3] 25 mcg (1,000 unit) Tablet
25 mcg PO DAILY
Gemtesa 75 mg Tablet
75 mg PO DAILY
gabapentin 300 mg Capsule
300 mg PO TID Qty: 90 0RF
tamsulosin [Flomax] 0.4 mg capsule
0.4 mg PO DAILY Qty: 30 0RF
digoxin 125 mcg (0.125 mg) tablet
125 mcg PO DAILY Qty: 30 0RF
Referrals:
Marcus Serra MD [Active] -
UNKNOWN - PT DOES,NOT KNOW [Unknown Provider] -
Activity Restrictions/Additional Instructions:
Patient was seen today for leg pain. Cellulitis is improving.
patient does not have a fever and his labs are good. Ultrasound was done negative for blood clot. Patient should continue his gabapentin and Lasix. In addition patient should follow-up with cardiology as his digoxin level was low.
Follow-up with family doctor next several days for continued evaluation and monitoring return if any worsening of symptoms
Interventions
Interventions:
*Risk Screen - Suicide Last Done: 05/06/24 09:58
*General Assessment Last Done: 05/06/24 09:58
*Neglect/Abuse Screening Last Done: 05/06/24 09:58
*Nursing Disposition Last Done: 05/06/24 18:58
ED-Skin Assessment Last Done: 05/06/24 10:59
Discharge Date and Time
Discharge Date/Time: 05/06/24 18:58
Print Language: YORUBA
[2024-05-06 11:16] LABS: % Basophils 0.3 % (0-2); % Eosinophils 1.1 % (0-6); % Immature Granulocytes 0.5 % (0-0.5); % Lymphocytes 6.3 % (20.5-51.1); % Monocytes 14.8 % (1.7-9.3); Absolute Eosinophils 0.1 10^3/uL (0-0.7); Absolute Lymphocytes 0.4 10^3/uL (1.2-3.4); Absolute Monocytes 0.9 10^3/uL (0.1-0.6); Absolute Neutrophils 4.8 10^3/uL (1.4-6.5); Hematocrit 37.8 % (39.0-52.0); Hemoglobin 12.2 g/dL (13.0-18.0); Mean Corp Hgb Conc. 32.3 g/dL (33.0-37.0); Mean Corpuscular Hgb 31.3 pg (27.0-31.0); Mean Corpuscular Volume 96.9 fL (80.0-94.0); Mean Platelet Volume 9.8 fL (7.4-10.4); Nucleated Red Blood Cells % 0 % (-); Platelet Count 117 10^3/uL (130-400); Red Cell Dist. Width 14.1 % (11.5-14.5); White Blood Cell Count 6.2 10^3/uL (4.8-10.8)
[2024-05-06 12:02] LABS: ALT (SGPT) 25 U/L (0-50); AST (SGOT) 23 U/L (17-59); Albumin 3.7 g/dl (3.5-5.0); Alkaline Phosphatase 122 U/L (38-126); Blood Urea Nitrogen 29 mg/dl (9-20); Calcium 9.6 mg/dl (8.4-10.2); Carbon Dioxide 30 mmol/L (22-30); Chloride 102 mmol/L (98-107); Estimated Creatinine Clearance 89 ml/min; Glucose 136 mg/dl (70-99); Sodium 140 mmol/L (135-145); Total Bilirubin 0.4 mg/dl (0.2-1.3); Total Protein 6.2 g/dl (6.3-8.2); eGFR > 60.00
[2024-05-06 12:08] LABS: Digoxin < 0.4 ng/ml (0.8-2.0)
== END 2024-05-06 18:58 | disposition home or self-care (01) ==
LOC: EMR 09:56
PROVIDERS: Nurse Practitioner; EMERGENCY PHYSICIAN Emergency Medicine; FAMILY PHYSICIAN Family Medicine
DX: M79.604 Pain in right leg (principal); M79.605 Pain in left leg; L03.116 Cellulitis of left lower limb; L03.115 Cellulitis of right lower limb; I69.341 Monoplegia of lower limb following cerebral infarction affecting right dominant side; I48.0 Paroxysmal atrial fibrillation; D69.6 Thrombocytopenia, unspecified; Z91.148 Patient's other noncompliance with medication regimen for other reason; K21.9 Gastro-esophageal reflux disease without esophagitis; I25.10 Atherosclerotic heart disease of native coronary artery without angina pectoris; I11.0 Hypertensive heart disease with heart failure; I50.9 Heart failure, unspecified; E11.40 Type 2 diabetes mellitus with diabetic neuropathy, unspecified; E78.00 Pure hypercholesterolemia, unspecified; D50.9 Iron deficiency anemia, unspecified; G47.30 Sleep apnea, unspecified; M19.90 Unspecified osteoarthritis, unspecified site; F41.9 Anxiety disorder, unspecified; F32.A Depression, unspecified; G89.29 Other chronic pain; N40.0 Benign prostatic hyperplasia without lower urinary tract symptoms; I25.2 Old myocardial infarction; Z79.01 Long term (current) use of anticoagulants; Z87.440 Personal history of urinary (tract) infections; Z86.16 Personal history of COVID-19; Z87.891 Personal history of nicotine dependence; Z90.49 Acquired absence of other specified parts of digestive tract; Z95.5 Presence of coronary angioplasty implant and graft; Z96.643 Presence of artificial hip joint, bilateral; Z96.651 Presence of right artificial knee joint; Z98.84 Bariatric surgery status; Z88.5 Allergy status to narcotic agent; Z88.8 Allergy status to other drugs, medicaments and biological substances
CPT/HCPCS: 99284; 80053; 80162; 85025; 93970

== ENCOUNTER 2024-05-19 09:25 | Emergency (ER) | payer OTHER, SELFPAY ==
[2024-05-19 09:28] VITALS: BP 146/74
--- NOTE | 2024-05-19 09:48 | ED.GENMED ---
History of Present Illness
General
Chief Complaint: Chest Pain
Source: patient
Exam Limitations: none
Time Seen by Provider: 05/19/24 09:38
History of Present Illness
History of Present Illness:
See MDM
Past History
Past History
ED Past Medical History: Arrthythmia (Atrial fibrillation), CAD, CHF, CVA (with right sided weakness), GERD, HTN, Hypercholesterolemia, NIDDM, NM, Psychiatric (Anxiety, Depression) and Other (GI bleed, GI stent, Orthostatic hypotension, Iron
deficiency anemia, Neuropathy, Sleep apnea, UTI, )
ED Past Surgical History: Cardiac (stent), Cholecystectomy, Orthopedic (Bilateral hip replacements, Left rotator cuff surgery, Right knee replacement) and Other (Gastric bypass)
Patient has exhibited threatening behavior?: No
PSI?: No
Social History
Tobacco: Former smoker
Alcohol: None
Drug: None
Personal:
Living: with family
Employment: Not employed
Family History
Family History: Other (Reviewed and Noncontributory)
Phy Exam
Physical Exam
Physical Exam:
See MDM
Scores
Heart Score for Chest Pain Patients
STEMI patient?: No
History: Slightly or Non-Suspicious
ECG: Normal
Age: >/= 65 years
Risk Factors: 1 or 2 Risk Factors
Troponin: </= Normal Limit
Heart Score for Chest Pain Patients: 3
Heart Score Risk: 2.5% MACE over next 6 weeks
Course
Orders/Labs/Results
Orders:
Orders
05/19/24 09:45
Morphine Sulfate 4 mg IV NOW STA
05/19/24 09:46
CT Abd/pelvis W Iv Cont Urgent
Comment:
Reason For Exam: LUQ and left lower rib pain
05/19/24 09:47
Electrocardiogram (*1) Urgent
Reason for Study: Abdominal Pain
EKG- Treatment ONCE
05/19/24 10:06
Complete Blood Count/With Diff Urgent
Comprehensive Metabolic Panel Urgent
Digoxin Urgent
Troponin I Urgent
05/19/24 11:10
Morphine Sulfate 4 mg IV NOW STA
05/19/24 12:40
Magnesium Citrate [Citroma] 300 ml PO ONCE ONE
Abnormal Lab Results
05/19/24
10:06
RBC 4.08 L 10^6/uL
(4.70-6.10)
Hgb 12.7 L g/dL
(13.0-18.0)
MCV 97.8 H fL
(80.0-94.0)
MCH 31.1 H pg
(27.0-31.0)
MCHC 31.8 L g/dL
(33.0-37.0)
Plt Count 120 L 10^3/uL
(130-400)
Absolute Lymphs (auto) 0.5 L 10^3/uL
(1.2-3.4)
Absolute Monos (auto) 0.7 H 10^3/uL
(0.1-0.6)
Neutrophils % 79.4 H %
(42.2-75.2)
Lymphocytes % 7.6 L %
(20.5-51.1)
Monocytes % 11.3 H %
(1.7-9.3)
Carbon Dioxide 31 H mmol/L
(22-30)
BUN 28 H mg/dl
(9-20)
Glucose 166 H mg/dl
(70-99)
Digoxin 0.5 L ng/ml
(0.8-2.0)
05/19/24 10:06
05/19/24 10:06
Vital Signs
Initial and Last Documented VS:
Initial Vital Signs
Temp Pulse Resp BP Pulse Ox
98.6 F 59 16 146/74 98
05/19/24 09:28 05/19/24 09:28 05/19/24 09:28 05/19/24 09:28 05/19/24 09:28
Last Documented Vital Signs
Temp Pulse Resp BP Pulse Ox
98.6 F 56 12 130/74 97
05/19/24 09:28 05/19/24 12:07 05/19/24 12:07 05/19/24 11:00 05/19/24 12:07
MDM/Problems Addressed
Differential Diagnosis Includes:
HPI and MDM Narrative:
78-year-old male presenting with left flank pain. Patient states it came out of nowhere while he was resting. This is associated with mild diarrhea. Patient is more concerned that it could be heart related even though symptoms are not exertional.
Family at bedside believe it could be related to him sleeping on the couch and never sleeping in a bed. He is point tender in the left upper quadrant and intercostal musculature. Given his age and complaint, will obtain CT. Will obtain EKG and
troponin to rule out any concern for ACS. Will check digoxin level as family requested
Physical exam
General: Well appearing and non-toxic
HEENT: protecting airway
Neck: appears supple
CV: No evidence of cyanosis. Irregular rhythm
Resp: No accessory muscle use. Lungs clear
Abd: Non-distended. Point tenderness to left upper quadrant and left lower intercostal musculature
Extremities: No deformities. No edema
Neuro: alert
Psych: Normal affect
Skin: Intact
Problems Addressed including Acute and Chronic Conditions affecting care:
1. Abdominal pain
Acuity: acute
Prognosis: stable
Details: Given age and complaint, will obtain CT. Will rule out ACS with EKG and troponin
Updates
Digoxin level is low. Cardiology made aware. Given that he is already rate controlled, there is no indication to increase digoxin. Cardiology will reach out to his main maintenance worker to discuss this further.
CT negative for acute pathology other than constipation. Will give dose of magnesium citrate
Differential Diagnosis (but not limited to): Constipation, muscle strain, pneumothorax
Testing considered: Chest x-ray
Drug therapy (if applicable): OTC meds, please see d/c instruction regarding Rx drugs
Amount and/or Complexity of Data Reviewed
Clinical info obtained from: Patient
External data reviewed: N/A
Labs I independently reviewed (but not limited to): Normal troponin
Radiology: The CT scan was personally and independently reviewed. In addition, official CT report reviewed.
Pulse Ox: not hypoxic
EKG independently reviewed: A-fib, left axis, no STEMI
Bead Forming Machine Set Up Operator: A-fib
Critical Care: N/A
Risk of Complication:
Social Determinants of health: Good social support
Discussed with other providers: N/A
Escalation of Care includes Admit/Obs: After being observed in the Emergency Department, pt stable for discharge.
Occasional wrong word or 'sound a like' substitutions may have occurred due to the inherent limitations of voice recognition software. Read the chart carefully and recognize, using context, where substitutions have occurred.
*Critical Care Note
Total Time (30-74mins, 75-104mins- exclusive of procedures): Not Applicable
ED Attending Note
-
Portions of this chart may have been created with voice recognition software.� Occasional wrong word or��sound alike� substitutions may have occurred due to the inherent limitations of voice recognition software.
Discharge Plan
Departure
Patient Disposition: Home (Routine Discharge)
Date of Disposition: 05/19/24
Time of Disposition: 12:41
Patient with high blood pressure during this ER visit?: No
Discharge Problem:
Acute constipation
Prescriptions:
No Action
Eliquis 5 mg Tablet
5 mg PO BID Qty: 60 0RF
midodrine 5 mg tablet
5 mg PO TID
Rx Instructions:
Take 1 extra pill if feeling dizzy AND Systolic blood pressure < 100
tramadol 50 mg tablet
50 mg PO BIDPRN PRN (Reason: Pain)
pravastatin 40 mg Tablet
40 mg PO DAILY
donepezil 10 mg Tablet
10 mg PO HS
fludrocortisone 0.1 mg Tablet
0.2 mg PO DAILY
cholecalciferol (vitamin D3) [Vitamin D3] 25 mcg (1,000 unit) Tablet
25 mcg PO DAILY
Gemtesa 75 mg Tablet
75 mg PO DAILY
gabapentin 300 mg Capsule
300 mg PO TID Qty: 90 0RF
tamsulosin [Flomax] 0.4 mg capsule
0.4 mg PO DAILY Qty: 30 0RF
digoxin 125 mcg (0.125 mg) tablet
125 mcg PO DAILY Qty: 30 0RF
gabapentin 300 mg capsule
300 mg PO TID Qty: 10 0RF
furosemide [Lasix] 20 mg tablet
20 mg PO DAILY Qty: 10 0RF
Referrals:
William Renner DO [Family Provider] -
Activity Restrictions/Additional Instructions:
Please return for any worsening symptoms.
You may return at any time if you have further concerns.
It is not certain what is causing your pain. The CT indicated that there is concern for constipation. You were given magnesium citrate in the emergency department. If symptoms do not resolve and you are still constipated, you can start MiraLAX
tomorrow for the next few days. Please increase your water intake and start taking a daily stool softener such as Colace.
Please follow up with your doctor at the first available appointment, preferably this week.
Thank you for choosing [facility].
Interventions
Interventions:
*Risk Screen - Suicide Last Done: 05/19/24 09:28
*General Assessment Last Done: 05/19/24 09:28
*Neglect/Abuse Screening Last Done: 05/19/24 09:28
ED- Fall Risk Assessment Last Done: 05/19/24 10:15
*ED COVID-19 Vaccine History Last Done: 05/19/24 10:08
ED- Cardiac Assessment Last Done: 05/19/24 10:08
Discharge Date and Time
Print Language: CROATIAN
[2024-05-19 10:00] VITALS: BMI 32.9
[2024-05-19] MEDS: MORPHINE SULFATE 4 MG IV ×2 (10:05→11:30)
[2024-05-19 10:07] VITALS: BP 135/76
[2024-05-19 10:18] LABS: % Basophils 0.2 % (0-2); % Eosinophils 1.2 % (0-6); % Immature Granulocytes 0.3 % (0-0.5); % Lymphocytes 7.6 % (20.5-51.1); % Monocytes 11.3 % (1.7-9.3); % Neutrophils 79.4 % (42.2-75.2); Absolute Eosinophils 0.1 10^3/uL (0-0.7); Absolute Lymphocytes 0.5 10^3/uL (1.2-3.4); Absolute Monocytes 0.7 10^3/uL (0.1-0.6); Absolute Neutrophils 5.1 10^3/uL (1.4-6.5); Hematocrit 39.9 % (39.0-52.0); Hemoglobin 12.7 g/dL (13.0-18.0); Mean Corp Hgb Conc. 31.8 g/dL (33.0-37.0); Mean Corpuscular Hgb 31.1 pg (27.0-31.0); Mean Corpuscular Volume 97.8 fL (80.0-94.0); Nucleated Red Blood Cells % 0 % (-); Platelet Count 120 10^3/uL (130-400); Red Blood Cell Count 4.08 10^6/uL (4.70-6.10); Red Cell Dist. Width 14.2 % (11.5-14.5); White Blood Cell Count 6.4 10^3/uL (4.8-10.8)
[2024-05-19 10:34] LABS: ALT (SGPT) 19 U/L (0-50); AST (SGOT) 26 U/L (17-59); Albumin 3.9 g/dl (3.5-5.0); Alkaline Phosphatase 111 U/L (38-126); Blood Urea Nitrogen 28 mg/dl (9-20); Calcium 9.2 mg/dl (8.4-10.2); Carbon Dioxide 31 mmol/L (22-30); Chloride 103 mmol/L (98-107); Estimated Creatinine Clearance 79 ml/min; Glucose 166 mg/dl (70-99); Potassium 4.5 mmol/L (3.5-5.1); Sodium 142 mmol/L (135-145); Total Bilirubin 0.5 mg/dl (0.2-1.3); Total Protein 6.4 g/dl (6.3-8.2); eGFR > 60.00
[2024-05-19 10:45] LABS: Troponin I 0.019 ng/ml
[2024-05-19 11:00] VITALS: BP 130/74
[2024-05-19 11:04] LABS: Digoxin 0.5 ng/ml (0.8-2.0)
[2024-05-19] MEDS: CITROMA 300 ML PO (12:51)
== END 2024-05-19 13:03 | disposition home or self-care (01) ==
LOC: EMR 09:25
PROVIDERS: EMERGENCY PHYSICIAN Student in an Organized Health Care Education/Training Program; FAMILY PHYSICIAN Family Medicine
DX: K59.09 Other constipation (principal); I25.10 Atherosclerotic heart disease of native coronary artery without angina pectoris; I11.0 Hypertensive heart disease with heart failure; I50.9 Heart failure, unspecified; I48.91 Unspecified atrial fibrillation; E11.9 Type 2 diabetes mellitus without complications; E78.00 Pure hypercholesterolemia, unspecified; G47.30 Sleep apnea, unspecified; K21.9 Gastro-esophageal reflux disease without esophagitis; I69.351 Hemiplegia and hemiparesis following cerebral infarction affecting right dominant side; Z87.891 Personal history of nicotine dependence; Z90.49 Acquired absence of other specified parts of digestive tract; Z95.5 Presence of coronary angioplasty implant and graft; Z98.84 Bariatric surgery status
CPT/HCPCS: 96374; 96376; 99284; 74177; 80053; 80162; 84484; 85025; 93005; Q9967

== ENCOUNTER 2024-06-07 16:45 | Inpatient (IN) | payer MEDICARE, SELFPAY ==
[2024-06-07 13:07] VITALS: BP 131/65
--- NOTE | 2024-06-07 13:53 | ED.GENMED ---
History of Present Illness
General
Chief Complaint: Swelling
Source: patient
Time Seen by Provider: 06/07/24 13:25
History of Present Illness
History of Present Illness:
79-year-old male presents emergency room complaining of swelling in his bilateral lower extremities which he feels is a bit worse. He has increased pain particular in the right lower extremity. Patient has had several visits to the emergency room
for similar complaints. He was hospitalized in April for cellulitis of the right lower extremity and given a long-acting medication dalbavancin. Pt denies fever but pain is making difficult to walk.
Discussed patient's situation with his daughter who called the emergency room. Patient has fairly significant dementia. They have had a staying with him to help him take his medications but the aids quit and so he has been without any in-home
assistance for the past couple weeks. They suspect he is not taking his medication as directed. Family is unable to be there consistently to help with his medications. Patient has refused placement in the past.
Past History
Past History
ED Past Medical History: Arrthythmia (Atrial fibrillation), CAD, CHF, CVA (with right sided weakness), GERD, HTN, Hypercholesterolemia, NIDDM, [place], Psychiatric (Anxiety, Depression) and Other (GI bleed, GI stent, Orthostatic hypotension, Iron
deficiency anemia, Neuropathy, Sleep apnea, UTI, )
ED Past Surgical History: Cardiac (stent), Cholecystectomy, Orthopedic (Bilateral hip replacements, Left rotator cuff surgery, Right knee replacement) and Other (Gastric bypass)
Patient has exhibited threatening behavior?: No
PSI?: No
Social History
Tobacco: Former smoker
Alcohol: None
Drug: None
Personal:
Living: with family
Employment: Not employed
Family History
Family History: Other (Reviewed and Noncontributory)
Phy Exam
Physical Exam
Physical Exam:
General: Awake, Alert, Oriented X3. Appears chronically ill
Vitals: unremarkable
Head: Atraumatic
Eyes: Pupils equal, EOMI
Throat: Airway intact, no exudates, dry mucosa
Neck: Trachea midline
Lungs: Clear and equal b/l
Heart: Regular rate, no murmurs
Abd: Soft, Nontender, No pulsatile mass
Neuro: Nonfocal
Skin: Warm, dry, no rash
Extremities: pulses equal b/l, 2+ edema bilaterally, right lower extremity has erythema under proportion to the left leg of the right foot and right lower leg which is somewhat tender to touch
Scores
Heart Failure Risk
Heart Failure Risk Score: Not Applicable
Course
Orders/Labs/Results
Orders:
Orders
06/07/24 14:02
Basic Metabolic Panel Urgent
Complete Blood Count/With Diff Urgent
Dig [Digoxin] Urgent
06/07/24 Dinner
1800 calorie (15 carb) Diabetic
At Your Request: Limited Participation
Does patient need a safe tray?: No
06/07/24 15:16
Furosemide [Lasix] 40 mg IV NOW STA
06/07/24 15:52
Blood Culture Routine
RILEY Source: Blood/Venous
Specimen Description:
06/07/24 16:20
CeFAZolin 2 GRAM [Ancef] 2 grams in 10 ml IV NOW
06/07/24 16:25
Admit/Transfer Patient As Directed
Co-Sign Provider:
Level of Care: Inpatient admission
Assign to:: Telemetry
Physician / Group: hospitalist
Diagnosis: cellulitis
Reason for Telemetry: Arrhythmia
Date to Stop Telemetry: 06/10/24
Time to Stop Telemetry: 11:00
Reason for Hospitalization: Cellulitis
Expected length of stay greater than two midnights?: Yes
ELOS- Estimated Length of Stay in days: 3
I certify the patient meets the requirements for IP care: Yes
PRN Pain Medication Management As Directed
May give lesser potent ordered pain med per pt: Yes
preference::
Protocol:: Medication orders for pain may be administered in a
manner that supports deferring to patient preference
when the pt is:
- Requesting an ordered lesser potent pain medication.
Least to most potent pain medications are defined
as: acetaminophen < NSAID < tramadol < opioids
(morphine, oxycodone, hydromorphone).
- Requesting a lesser dose of the same medication IF
ORDERED.
- Requesting a less intrusive route of administration
if both routes are prescribed by the provider (PO <
IV).
06/07/24 18:11
Gabapentin [Neurontin] 300 mg PO QID
Pravastatin Sodium [Pravachol] 40 mg PO QPM
Tamsulosin [Flomax] 0.4 mg PO QPM
06/07/24 18:11
INFECTIOUS DISEASE CONSULT Routine
Consulting Provider: Sonja Larios
Was physician already notified: Yes
Wound Care As Directed
Location of Wound: leg
Treatment of Wound: cellulitis, as needed
Ot Eval And Treat Routine
Pt Eval And Treat Routine
Activity Level: As Tolerated
06/07/24 20:00
Apixaban [Eliquis] 5 mg PO BID
METFORMIN HCl [Glucophage] 500 mg PO BID
06/07/24 22:00
Donepezil HCl [Aricept] 10 mg PO HS
Midodrine [ProAmatine] 5 mg PO TID
06/08/24 02:00
CeFAZolin 2 GRAM [Ancef] 2 grams in 10 ml IV Q8H
06/08/24 06:00
Complete Blood Count/With Diff IN AM
Comprehensive Metabolic Panel IN AM
06/08/24 07:30
Insulin Aspart Corrective Low [Novolog Flexpen-Low Resistance] See Protocol SC AC
06/08/24 08:00
Cholecalciferol (Vitamin D3) [VITAMIN D3 (cholecalciferol)] 25 mcg PO DAILY
Ferrous Sulfate [Feosol] 325 mg PO DAILY
Fludrocortisone Acetate [Florinef] 0.2 mg PO DAILY
Furosemide [Lasix] 40 mg IV BID AT 0800,1600
Tolterodine Extended Release [Detrol LA] 4 mg PO DAILY
06/08/24 12:00
Digoxin [Lanoxin] 125 mcg PO NOON
06/09/24 06:00
Complete Blood Count/With Diff IN AM
Comprehensive Metabolic Panel IN AM
06/10/24 06:00
Complete Blood Count/With Diff IN AM
Comprehensive Metabolic Panel IN AM
06/10/24 11:00
DC Protocol for Telemetry ONCE
06/11/24 06:00
Complete Blood Count/With Diff IN AM
Comprehensive Metabolic Panel IN AM
Abnormal Lab Results
06/07/24
14:02
WBC 12.0 H 10^3/uL
(4.8-10.8)
RBC 4.20 L 10^6/uL
(4.70-6.10)
MCV 96.4 H fL
(80.0-94.0)
MCH 31.2 H pg
(27.0-31.0)
MCHC 32.3 L g/dL
(33.0-37.0)
RDW 14.6 H %
(11.5-14.5)
Abs Immat Gran (auto) 0.1 H 10^3/uL
(0-0.05)
Absolute Neuts (auto) 10.2 H 10^3/uL
(1.4-6.5)
Absolute Lymphs (auto) 0.5 L 10^3/uL
(1.2-3.4)
Absolute Monos (auto) 1.2 H 10^3/uL
(0.1-0.6)
Immature Gran % 0.6 H %
(0-0.5)
Neutrophils % 84.7 H %
(42.2-75.2)
Lymphocytes % 4.2 L %
(20.5-51.1)
Monocytes % 9.8 H %
(1.7-9.3)
Carbon Dioxide 35 H mmol/L
(22-30)
BUN 32 H mg/dl
(9-20)
Glucose 159 H mg/dl
(70-99)
Digoxin < 0.4 L ng/ml
(0.8-2.0)
06/07/24 14:02
06/07/24 14:02
Vital Signs
Initial and Last Documented VS:
Initial Vital Signs
Temp Pulse Resp BP Pulse Ox
98.5 F 79 20 131/65 96
06/07/24 13:07 06/07/24 13:07 06/07/24 13:07 06/07/24 13:07 06/07/24 13:07
Last Documented Vital Signs
Temp Pulse Resp BP Pulse Ox
98 F 79 18 169/82 94
06/07/24 18:21 06/07/24 18:21 06/07/24 18:21 06/07/24 18:21 06/07/24 18:21
MDM/Problems Addressed
Differential Diagnosis Includes:
cellulitis, venous stasis, chf
MDM/Problems Addressed:
79-year-old male presents complaining of pain in his lower extremities right greater than left. He does have erythema which is out of proportion of the right leg compared to left. He is tender to palpation. He has had cellulitis in the right leg
before. Concerned the patient is having cellulitis cover with antibiotics. In discussing with patient's family the patient is not taking his medications appropriately. He had an aide who quit in therefore he is existing in his home without anyone
there to help. Patient may require placement to detention.
*Pulse Oximetry
Patient hypoxic: no
*Critical Care Note
Total Time (30-74mins, 75-104mins- exclusive of procedures): Not Applicable
Patient Management
Social determinants of health affecting care: Living situation and Poor social support
ED Attending Note
-
Portions of this chart may have been created with voice recognition software.� Occasional wrong word or��sound alike� substitutions may have occurred due to the inherent limitations of voice recognition software.
Discharge Plan
Departure
Patient Disposition: Admit
Date of Disposition: 06/07/24
Time of Disposition: 15:19
Admit to: Med/Surg
Presentation/result/management discussed w/ accepting MD/DO: Hospitalist
Condition: Fair
Discharge Problem:
Cellulitis of right lower extremity, Peripheral edema
Interventions
Interventions:
*Risk Screen - Suicide Last Done: 06/07/24 13:10
*General Assessment Last Done: 06/07/24 14:07
*Neglect/Abuse Screening Last Done: 06/07/24 14:07
ED- Fall Risk Assessment Last Done: 06/07/24 14:07
*ED COVID-19 Vaccine History Last Done: 06/07/24 14:07
*Nursing Disposition Last Done: 06/07/24 18:07
ED- Cardiac Assessment Last Done: 06/07/24 14:07
ED- Pulmonary Assessment Last Done: 06/07/24 14:07
ED-Skin Assessment Last Done: 06/07/24 14:07
Discharge Date and Time
Discharge Date/Time: 06/07/24 18:07
[2024-06-07 13:59] VITALS: BMI 32.1
[2024-06-07 14:11] LABS: % Basophils 0.3 % (0-2); % Eosinophils 0.4 % (0-6); % Immature Granulocytes 0.6 % (0-0.5); % Lymphocytes 4.2 % (20.5-51.1); % Monocytes 9.8 % (1.7-9.3); % Neutrophils 84.7 % (42.2-75.2); Absolute Eosinophils 0.1 10^3/uL (0-0.7); Absolute Immature Granulocytes 0.1 10^3/uL (0-0.05); Absolute Lymphocytes 0.5 10^3/uL (1.2-3.4); Absolute Monocytes 1.2 10^3/uL (0.1-0.6); Absolute Neutrophils 10.2 10^3/uL (1.4-6.5); Hematocrit 40.5 % (39.0-52.0); Hemoglobin 13.1 g/dL (13.0-18.0); Mean Corp Hgb Conc. 32.3 g/dL (33.0-37.0); Mean Corpuscular Hgb 31.2 pg (27.0-31.0); Mean Corpuscular Volume 96.4 fL (80.0-94.0); Mean Platelet Volume 10.3 fL (7.4-10.4); Nucleated Red Blood Cells % 0 % (-); Platelet Count 157 10^3/uL (130-400); Red Cell Dist. Width 14.6 % (11.5-14.5)
[2024-06-07 14:25] LABS: Blood Urea Nitrogen 32 mg/dl (9-20); Calcium 9.9 mg/dl (8.4-10.2); Carbon Dioxide 35 mmol/L (22-30); Chloride 98 mmol/L (98-107); Estimated Creatinine Clearance 77 ml/min; Glucose 159 mg/dl (70-99); Sodium 138 mmol/L (135-145); eGFR > 60.00
[2024-06-07 14:36] LABS: Digoxin < 0.4 ng/ml (0.8-2.0)
[2024-06-07 15:00] VITALS: BP 96/57
[2024-06-07 15:48] LABS: Potassium 4.7 mmol/L (3.5-5.1)
[2024-06-07] MEDS: LASIX 40 MG IV (15:54)
--- NOTE | 2024-06-07 16:09 | W.PN.UPDATE ---
Update Note
Progress Note Update
I personally performed a history and physical exam of the patient and discussed management with the resident. I reviewed the resident's note and agree with the documented findings and plan of care HPI/CC.
79-year-old male presents with chief complaints of worsening bilateral lower extremity edema and increased pain in the right lower extremity. He has underlying dementia. In April 2024 he received dalbavancin for right lower extremity cellulitis.
96/57, 58, 21, 98.5 F, 99% RA
Gen: NAD, AAOx3.
Eyes: EOMI, PERRLA, no scleral icterus.
Neck: supple.
CV: irreg/irreg, +S1/S2, 2/6 systolic murmur
Resp: CTAB, no rales, wheezes, or rhonchi.
Abd: +BS, soft, NT, ND
Skin: B/L LE chronic venous stasis dermatitis with possibly a mild component of cellulitis in the RLE. 1+ B/L LE edema.
Neuro: CN 2-12 intact
Psych: Normal mood and affect.
Sepsis due to RLE cellulitis, recurrent, nonpurulent and B/L LE edema:
-a/e/b tachypnea, leukocytosis, source RLE cellulitis
-c/s ID
-cont Ancef started in the ER
-diurese with IV lasix
-B/L LE U/S 05/06/24: No sonographic evidence for lower extremity venous thrombosis. Severe diffuse subcutaneous edema throughout the lower legs.
Other problems:
Permanent Atrial Fibrillation: cont Eliquis
Orthostatic hypotension: Continue Florinef/midodrine
DM2: Continue metformin. SSI/accuchecks/diabetic diet
Chronic Thrombocytopenia:
Alzheimer's Dementia
h/o CVA with Residual R Foot Drop: cont Eliquis
h/o medical noncompliance
[2024-06-07] MEDS: ANCEF 10 IV (16:23)
--- NOTE | 2024-06-07 16:33 | HPS.HSE ---
Family Physician
-
Family Physician: William Renner
Chief Complaint
-
Cellulitis of lower extremities
History of Present Illness
Patient is an 79-year-old man with past medical history of HFpEF, A-fib, CVA, diabetes type 2, chronic thrombocytopenia, senile dementia, orthostatic hypotension, BETSEY, obesity who presents to [facility] with cellulitis of lower extremity.
He does not know how long it has been going on but was recently admitted to [facility] April for management of cellulitis. In April, he was given a dose of IV dalbavancin 1500 mg and discharged. At home he lives with his and has
an aide that comes every day to assist with medications, however has been missing some medication doses recently. He reports no recent sick contacts. He has no headaches, nausea, vomiting, chest pain, shortness of breath, abdominal pain,
incontinence of bowel or bladder. He has some numbness and tingling in lower extremities and pain in the regions of blister formation.
Medical History
Past Medical History
Past Medical History: Reports Arrhythmia, CAD, Dementia, HTN and Other
Additional Past Medical History:
Thrombocytopenia, ambulatory dysfunction, diabetes, orthostatic hypotension, BPH
Past Surgical History: Reports Other
Additional Past Surgical History:
Cholecystectomy, gastric bypass, edge procedure, Axios stent placement
Social History
Unable to obtain full social history at this time due to: Dementia
Tobacco: Former Smoker
Alcohol: Occasional
Drug: None
Personal:
Living: With Family
Employment: Retired
Family History
Family History: Not pertinent
Allergies / Home Medications
Allergies reflects when Allergies were last updated in [employer].
Home Medications with original date entered in [employer]
Allergy/Medication List:
Allergies
Allergy/AdvReac Type Severity Reaction Status Date / Time
meperidine HCl [From Demerol] Allergy gets hyper Verified 06/07/24 13:08
ondansetron [From Zofran] Allergy N/V Verified 06/07/24 13:08
Home Medications
apixaban 5 mg tablet (Eliquis) 5 mg PO BID Blood Clot Prevention/Tx #60 tabs 05/21/23
midodrine 5 mg tablet 5 mg PO TID hypotension 04/15/24
cholecalciferol (vitamin D3) 25 mcg (1,000 unit) tablet (Vitamin D3) 25 mcg PO DAILY Supplement 04/22/24
donepezil 10 mg tablet 10 mg PO HS Dementia 04/22/24
fludrocortisone 0.1 mg tablet 0.2 mg PO DAILY 04/22/24
pravastatin 40 mg tablet 40 mg PO QPM High Cholesterol 04/22/24
vibegron 75 mg tablet (Gemtesa) 75 mg PO DAILY Urinary Issue 04/22/24
furosemide 20 mg tablet (Lasix) 20 mg PO DAILY #10 tabs 05/06/24
digoxin 125 mcg (0.125 mg) tablet 125 mcg PO NOON 06/07/24
ferrous sulfate 325 mg (65 mg iron) tablet 325 mg PO DAILY 06/07/24
gabapentin 300 mg capsule 300 mg PO QID 06/07/24
metformin 500 mg tablet 500 mg PO BID 06/07/24
tamsulosin 0.4 mg capsule (Flomax) 0.4 mg PO QPM 06/07/24
Review of Systems
-
Unable to obtain full review of systems at this time due to: Dementia
History Source: Patient
A 12 point ROS was completed and negative except as noted: Yes
Constitutional: Reports No Symptoms
EENT: Reports No Symptoms
Respiratory: Reports No Symptoms
Cardiac: Reports No Symptoms
Abdomen/GI: Reports No Symptoms
: Reports No Symptoms
Musculoskeletal: Reports Edema (Lower extremity edema)
Skin: Reports Other (Cellulitis)
Neurological: Reports Other (Tingling in lower extremities)
Endocrine: Reports No Symptoms
Physical Exam
Vital Signs
Vital Signs
Temp Pulse Resp BP Pulse Ox
98.5 F 58 21 96/57 99
06/07/24 13:07 06/07/24 15:54 06/07/24 14:05 06/07/24 15:54 06/07/24 14:05
Physical Exam
General: Well Developed, Well Nourished, No Apparent Distress, Comfortable and Conversant
HEENT: NormoCephalic, Anicteric and Moist mucous membranes
Respiratory: Clear
Cardiac: S1/S2 and Irregular Rhythm
GI: Soft, Non Tender, Non Distended and Normal Bowel Sounds
Musculoskeletal: Edema, Left Lower Extremity and Edema, Right Lower Extremity
Skin: Other (Blisters and cellulitis on bilateral lower extremities)
Neuro: AO x 3
Psych: Calm
Laboratory Results
-
06/07/24 14:02
06/07/24 14:02
Data Reviewed
-
Lab Data: Labs Reviewed by me and Discussed with Physician
Old Records: Reviewed
Impression/Plan
-
PLAN:
#Sepsis secondary to right lower extremity cellulitis versus venous stasis dermatitis
ID consulted, appreciate input
Start IV Ancef Q8
Wound care consulted
Start IV Lasix 40 mg twice daily
#Permanent atrial fibrillation
Continue Eliquis
#Orthostatic hypotension
Continue midodrine
#Diabetes type 2
Continue metformin
Start SSI/Accu-Cheks
#Chronic thrombocytopenia
monitor CBC
#Alzheimer's dementia
continue donepezil
continue gabapentin
#History of CVA with residual right foot drop
Continue Eliquis
#BPH/overactive bladder
continue flomax
continue gemtesa
#History of medical noncompliance
Eliquis/full code
--- NOTE | 2024-06-07 16:53 | W.PN.UPDATE ---
Update Note
Progress Note Update
Patient's daughter updated at length over the phone. I explained that the patient more than likely has chronic venous stasis dermatitis with, at best, minimal superimposed cellulitis of the right lower extremity. I explained that in my chart
review and discussion with other providers that have cared for the patient that the patient really needs placement for his own benefit. She discussed how she feels that the patient's care aids at home have not done a good job and 1 quit recently.
She asked me if the aids did their job appropriately could he get the appropriate care at home. I reiterated that I feel the patient needs placement for his own medical benefit. I explained that he will be on antibiotics tonight but he more than
likely can be switched to oral antibiotics either immediately or tomorrow. I stated that he will likely be medically cleared for discharge tomorrow.
[2024-06-07 18:21] VITALS: BP 169/82
[2024-06-07 18:22] VITALS: BMI 30.6
[2024-06-07 19:37] VITALS: BP 130/73
[2024-06-07] MEDS: NEURONTIN 300 MG PO (20:48)
[2024-06-07] MEDS: PRAVACHOL 40 MG PO (20:48)
[2024-06-07] MEDS: ELIQUIS 5 MG PO (20:48)
[2024-06-07] MEDS: FLOMAX 0.4 MG PO (20:48)
[2024-06-07] MEDS: ARICEPT 10 MG PO (20:49)
[2024-06-07] MEDS: TYLENOL 650 MG PO (21:01)
[2024-06-07 21:08] LABS: Glucose - Point of Care 93 mg/dl (70-99)
[2024-06-07] MEDS: NEURONTIN PO (22:48)
[2024-06-07] MEDS: GLUCOPHAGE PO (22:56)
[2024-06-07 23:27] VITALS: BP 124/60
[2024-06-08] MEDS: ProAmatine PO (00:27)
[2024-06-08] MEDS: ANCEF 10 IV ×2 (02:49→10:01)
[2024-06-08] MEDS: ULTRAM 50 MG PO ×2 (03:42→11:53)
[2024-06-08 03:51] VITALS: BP 114/73
[2024-06-08 04:40] VITALS: BMI 30.5
[2024-06-08 06:44] LABS: % Basophils 0.2 % (0-2); % Eosinophils 0.7 % (0-6); % Immature Granulocytes 0.6 % (0-0.5); % Lymphocytes 6.4 % (20.5-51.1); % Monocytes 13.5 % (1.7-9.3); % Neutrophils 78.6 % (42.2-75.2); Absolute Eosinophils 0.1 10^3/uL (0-0.7); Absolute Immature Granulocytes 0.1 10^3/uL (0-0.05); Absolute Lymphocytes 0.7 10^3/uL (1.2-3.4); Absolute Monocytes 1.5 10^3/uL (0.1-0.6); Absolute Neutrophils 8.7 10^3/uL (1.4-6.5); Hematocrit 40.4 % (39.0-52.0); Hemoglobin 13.2 g/dL (13.0-18.0); Mean Corp Hgb Conc. 32.7 g/dL (33.0-37.0); Mean Corpuscular Hgb 31.5 pg (27.0-31.0); Mean Corpuscular Volume 96.4 fL (80.0-94.0); Mean Platelet Volume 10.4 fL (7.4-10.4); Nucleated Red Blood Cells % 0 % (-); Platelet Count 127 10^3/uL (130-400); Red Blood Cell Count 4.19 10^6/uL (4.70-6.10); Red Cell Dist. Width 14.5 % (11.5-14.5); White Blood Cell Count 11.1 10^3/uL (4.8-10.8)
[2024-06-08 07:10] LABS: ALT (SGPT) 13 U/L (0-50); AST (SGOT) 26 U/L (17-59); Albumin 3.8 g/dl (3.5-5.0); Alkaline Phosphatase 129 U/L (38-126); Blood Urea Nitrogen 34 mg/dl (9-20); Calcium 9.5 mg/dl (8.4-10.2); Carbon Dioxide 30 mmol/L (22-30); Chloride 99 mmol/L (98-107); Estimated Creatinine Clearance 84 ml/min; Glucose 126 mg/dl (70-99); Potassium 4.5 mmol/L (3.5-5.1); Sodium 139 mmol/L (135-145); Total Bilirubin 0.7 mg/dl (0.2-1.3); Total Protein 6.2 g/dl (6.3-8.2); eGFR > 60.00
[2024-06-08 07:16] VITALS: BP 121/70
[2024-06-08 07:40] LABS: Glucose - Point of Care 146 mg/dl (70-99)
[2024-06-08] MEDS: NOVOLOG FLEXPEN-LOW RESISTANCE SC (07:40)
[2024-06-08] MEDS: NEURONTIN 300 MG PO ×2 (08:40→13:16)
[2024-06-08] MEDS: DETROL LA 4 MG PO (08:40)
[2024-06-08] MEDS: ProAmatine 5 MG PO ×2 (08:40→15:40)
[2024-06-08] MEDS: FLORINEF 0.2 MG PO (08:40)
[2024-06-08] MEDS: GLUCOPHAGE 500 MG PO (08:40)
[2024-06-08] MEDS: ELIQUIS 5 MG PO (08:41)
[2024-06-08] MEDS: VITAMIN D3 (cholecalciferol) 25 MCG PO (08:41)
[2024-06-08] MEDS: LASIX 40 MG IV ×2 (08:41→15:47)
[2024-06-08] MEDS: FEOSOL 325 MG PO (08:41)
--- NOTE | 2024-06-08 09:08 | W.PN.HOSP.TC ---
Today's Communication/Plan
-
Patient medically stable and cleared for discharge pending ID recommendations. Will stay longer if requirement of IV antibiotics needed
Assessment / Plan
Assessment / Plan
#Sepsis secondary to right lower extremity cellulitis versus venous stasis dermatitis
ID consulted, appreciate input
Start IV Ancef Q8
Wound care consulted
Start IV Lasix 40 mg twice daily
Pending ID recommendations regarding whether patient needs to continue IV antibiotics or can transition to oral
Single dose of tramadol given for pain
#Permanent atrial fibrillation
Continue Eliquis
#Orthostatic hypotension
Continue midodrine
#Diabetes type 2
Continue metformin
Start SSI/Accu-Cheks
#Chronic thrombocytopenia
monitor CBC
#Alzheimer's dementia
continue donepezil
continue gabapentin
#History of CVA with residual right foot drop
Continue Eliquis
#BPH/overactive bladder
continue flomax
continue gemtesa
#History of medical noncompliance
Eliquis/full code
Anticipated Discharge: Within 24 hours
Subjective/Interval History
-
Date of Service: June 08, 2024
Patient reports no acute events overnight. He says there is still some discomfort and pain in his legs, but otherwise no symptoms.
Objective Data
-
Labs:
Laboratory Results
06/08/24
05:46
WBC 11.1 H
Hgb 13.2
Hct 40.4
Plt Count 127 L
Sodium 139
Potassium 4.5
Chloride 99
Carbon Dioxide 30
BUN 34 H
Creatinine 0.8
Glucose 126 H
Calcium 9.5
Total Bilirubin 0.7
AST 26
ALT 13
Alkaline Phosphatase 129 H
Vital Signs:
Vital Signs
Temp Pulse Resp BP Pulse Ox
97.9 F 68 20 121/70 95
06/08/24 07:16 06/08/24 08:40 06/08/24 07:16 06/08/24 08:40 06/08/24 07:16
I&O
06/07/24 06/08/24 06/09/24
06:59 06:59 06:59
Intake Total 240 / 240
Output Total 760 / 760
Balance -520 / -520
Review of Systems
-
Unable to obtain full review of systems at this time due to: Dementia
History Source: Patient
Constitutional: Reports No Symptoms
EENT: Reports No Symptoms Reported
Respiratory: Reports No Symptoms
Cardiac: Reports No Symptoms
Abdomen/GI: Reports No Symptoms
Genitourinary: Reports No Symptoms
Musculoskeletal: Reports Other (Pain at site of cellulitis)
Skin: Reports Rash and Other (Purple skin diffusely present across right martines)
Physical Exam
-
General: Well Developed, Well Nourished, No Apparent Distress, Comfortable and Conversant
HEENT: Normocephalic and Atraumatic
Respiratory: Clear to Auscultation
GI: Soft, Nontender, Nondistended and Normal Bowel Sounds
Musculoskeletal: No Clubbing, No Cyanosis, Edema, Right Lower Extrem and Edema, Left Lower Extrem
Neuro: AO x 3
Psych: Calm
Data Reviewed
-
Labs: Labs Reviewed by me and Discussed with Physician
Old Records: Reviewed
--- NOTE | 2024-06-08 09:20 | W.PN.UPDATE ---
Addendum entered and electronically signed by Abran Martinez MD 06/08/24 13:43:
Medically cleared for discharge on oral antibiotics.
Total time spent on d/c = 40 min. This included today's physical exam, progress note, review of laboratory and diagnostic data, preparation of discharge documents and prescriptions, and discussions about the pt's hospital course and discharge plan
with the patient and other medical assistant float involved in the patient's care.
Original Note:
Update Note
Progress Note Update
I saw and evaluated the patient. I reviewed the resident�s note and agree with findings and plan as documented in the resident�s note.
No new complaints.
Gen: NAD, AAOx3.
Eyes: EOMI, PERRLA, no scleral icterus.
Neck: supple.
CV: rmeains irreg/irreg, +S1/S2, 2/6 systolic murmur
Resp: remains CTAB, no rales, wheezes, or rhonchi.
Abd: +BS, soft, NT, ND
Skin: remains B/L LE chronic venous stasis dermatitis with possibly a mild component of cellulitis in the RLE. 1+ B/L LE edema.
Neuro: CN 2-12 intact
Psych: Normal mood and affect.
Sepsis due to RLE cellulitis, recurrent, nonpurulent and B/L LE edema:
-a/e/b tachypnea, leukocytosis, source RLE cellulitis on amdission
-c/s ID
-cont Ancef for now, likely transition to PO abx todya
-cont IV lasix until d/c later today
-B/L LE U/S 05/06/24: No sonographic evidence for lower extremity venous thrombosis. Severe diffuse subcutaneous edema throughout the lower legs.
Other problems:
Permanent Atrial Fibrillation: cont Eliquis
Orthostatic hypotension: Continue Florinef/midodrine
DM2: Continue metformin. SSI/accuchecks/diabetic diet
Chronic Thrombocytopenia:
Alzheimer's Dementia
h/o CVA with Residual R Foot Drop: cont Eliquis
h/o medical noncompliance
Dispo: Medically cleared for d/c if OK with ID. Case management aware.
--- NOTE | 2024-06-08 10:03 | VNURNOTE ---
Chart reviewed. Patient is current with [facility]ABB[facility]VN RN, ICT HELP DESK OFFICER, PT, SHOER. Will continue to follow hospital course and DC plans.
[2024-06-08 10:45] VITALS: BP 119/77; PULSE 85; O2SAT 99
[2024-06-08 11:35] VITALS: BP 119/77; PULSE 79; O2SAT 93
[2024-06-08 11:47] VITALS: BP 135/83
[2024-06-08] MEDS: LANOXIN 125 MCG PO (11:53)
[2024-06-08 12:19] LABS: Glucose - Point of Care 178 mg/dl (70-99)
[2024-06-08] MEDS: NOVOLOG FLEXPEN-LOW RESISTANCE 1 UNITS SC (13:00)
--- NOTE | 2024-06-08 13:31 | CON.ID ---
Consultation
-
Date/Time Consultation Requested: 06/07/24 18:11
Date/Time Consultation Performed: 06/08/24 13:38
Requesting Provider: Dr Mclean
Performing Provider: Dr Larios
Reason for Consultation: venous stasis dermatitis vs cellulitis
Chief Complaint / Past History
Chief Complaint
increased redness, tenderness of the RLE
History of Present Illness
Mr Bennett is an 79 year old male with a history of HFpEF, DM2, lymphedema, recurrent cellulitis who presented here for increasing erythema, warmth, tenderness of the right lower extremity. He typically lives at home with his and and aide comes
daily to assist with medications, however aide recently quit and family report he may have been missing medications. Patient denies: headaches, nausea, vomiting, chest pain, shortness of breath, abdominal pain, incontinence of bowel or bladder.
Since arrival here patient has been afebrile, bp stable, wbc on arrival 12, hgb 13, plt 157, L shift was present on arrival, cr 0.9, a single blood culture was done no growth to date. Patient is currently on cefazolin. ID is consulted for
assistance with management.
Past History
Additional Past Medical History:
Arrhythmia, CAD, Dementia, HTN
Additional Past Surgical History:
Thrombocytopenia, ambulatory dysfunction, diabetes, orthostatic hypotension, BPH
Allergy History:
meperidine HCl [From Demerol] Allergy (Verified 06/07/24 13:08)
gets hyper
ondansetron [From Zofran] Allergy (Verified 06/07/24 13:08)
N/V
Medications Reviewed: Yes
Social History
Tobacco: Former Smoker
Alcohol: Occasional
Drug: None
Family History
Family History: Not Pertinent
Review of Systems
Review of Systems
General: Negative Fever or Chills
All systems: All other systems were reviewed and were negative
Vital Signs
Temp Pulse Resp BP Pulse Ox
98 F 88 20 135/83 99
06/08/24 11:47 06/08/24 11:53 06/08/24 11:47 06/08/24 11:47 06/08/24 11:47
Physical Exam
Physical Exam
Constitutional: No Acute Distress
Cardiovascular: Regular Rate and S1/S2; Negative Murmur or Rub
Pulmonary: Clear and Symmetric; Negative Wheezes, Rales or Rhonchi
Gastrointestinal: Soft, Non Tender, Non Distended and Normal Bowel Sounds
Genito-Urinary: Negative Suprapubic Tenderness or CVA Tenderness
Skin: Warm, Dry and Rash (right lower extremity a bit warmer than the contralateral side, no purulence, 1+ pitting edema noted bilaterally); Negative Jaundice
Neurological: Awake
Lab / Diagnostic Study Results
06/08/24 05:46
06/08/24 05:46
Abs Immat Gran (auto) 0.1 10^3/uL (0-0.05) H 06/08/24 05:46
Absolute Neuts (auto) 8.7 10^3/uL (1.4-6.5) H 06/08/24 05:46
Absolute Lymphs (auto) 0.7 10^3/uL (1.2-3.4) L 06/08/24 05:46
Absolute Monos (auto) 1.5 10^3/uL (0.1-0.6) H 06/08/24 05:46
Absolute Basos (auto) 0.0 10^3/uL (0-0.2) 06/08/24 05:46
Immature Gran % 0.6 % (0-0.5) H 06/08/24 05:46
Neutrophils % 78.6 % (42.2-75.2) H 06/08/24 05:46
Lymphocytes % 6.4 % (20.5-51.1) L 06/08/24 05:46
Monocytes % 13.5 % (1.7-9.3) H 06/08/24 05:46
Eosinophils % 0.7 % (0-6) 06/08/24 05:46
Basophils % 0.2 % (0-2) 06/08/24 05:46
Microbiology Results
Micro:
06/07/24 15:52 Blood Culture - Pending
Blood/Venous
Assessment / Plan
Consulted for assistance with management with possible cellulitis vs venous stasis dermatitis, remainder of care per primary team.
Mild Cellulitis of the RLE vs Venous Stasis Dermatitis
Recurrent cellulitis
Chronic Lymphedema
- area is more symptomatic (painful) for patient than usual and there is a bit of more warmth than the CL side
- compression - tubigrips, he would benefit from wearing these chronically
- elevation at least 1 hour twice daily
- generally do not recommend blood cultures for nonpurulent cellulitis as pretest probability is low
- start keflex 500 mg PO QID x7 day, after than start keflex 500 mg PO qday indefinitely as suppression, would attempt suppression at least 1 year to hopefully break up the cycle of recurrence
- stable for dc from ID perspective.
Care Review
Plan reviewed with: Physician (Dr Martinez)
[2024-06-08 15:19] VITALS: BP 120/79
--- NOTE | 2024-06-08 16:32 | CM ---
Alert awake patient who lives with his Kaylan who lives in a 1 story home with 1 step to enter and bed and bathroom on first floor. He is independent in driving and in all activities of daily living.He was offered VN he requested resumption with
VN . Dorothy Locke notified.PT OT recommended SNF . Pt refused SNF.Spoke with Clair Bennett dgt POA [phone] she agrees she does not want her dad to go to SNF.She has hired new Caregivers via waiver. She said pediatric care coordinator have been hard to
find. Emailed her IMM and pediatric care coordinator list to [email or web address]. she requested home with VN. Pt told me he had no ride home. As per daughter pts car is here at . Spoke with pt he said he found a ride home with Kamila . Verified with dgt
Clair if that plan is agreeable . Dgt texted me back that discharge today with friend Kamila and VN was agreeable. RN and 4 E notified.
[facility]
PCP DR Renner
PLAN Home with VN .Private Caregiver
[2024-06-08 16:59] LABS: Glucose - Point of Care 158 mg/dl (70-99)
== END 2024-06-08 17:30 | disposition home health service (06) | DRG 872 ==
LOC: 4 EAST ACU 16:45
PROVIDERS: ADMITTING PHYSICIAN Internal Medicine; CONSULT PHYSICIAN Student in an Organized Health Care Education/Training Program; EMERGENCY PHYSICIAN Emergency Medicine; FAMILY PHYSICIAN Family Medicine
DX: A41.9 Sepsis, unspecified organism (principal); L03.115 Cellulitis of right lower limb; I48.21 Permanent atrial fibrillation; I50.32 Chronic diastolic (congestive) heart failure; F02.83 Dementia in other diseases classified elsewhere, unspecified severity, with mood disturbance; F02.84 Dementia in other diseases classified elsewhere, unspecified severity, with anxiety; I95.1 Orthostatic hypotension; I11.0 Hypertensive heart disease with heart failure; E11.40 Type 2 diabetes mellitus with diabetic neuropathy, unspecified; D69.6 Thrombocytopenia, unspecified; G30.9 Alzheimer's disease, unspecified; I69.398 Other sequelae of cerebral infarction; M21.371 Foot drop, right foot; G47.33 Obstructive sleep apnea (adult) (pediatric); N32.81 Overactive bladder; N40.1 Benign prostatic hyperplasia with lower urinary tract symptoms; I87.2 Venous insufficiency (chronic) (peripheral); I25.10 Atherosclerotic heart disease of native coronary artery without angina pectoris; K21.9 Gastro-esophageal reflux disease without esophagitis; F32.A Depression, unspecified; E78.00 Pure hypercholesterolemia, unspecified; I89.0 Lymphedema, not elsewhere classified; E66.9 Obesity, unspecified; Z98.84 Bariatric surgery status; Z96.651 Presence of right artificial knee joint; Z96.643 Presence of artificial hip joint, bilateral; Z95.5 Presence of coronary angioplasty implant and graft; Z91.199 Patient's noncompliance with other medical treatment and regimen due to unspecified reason; Z87.891 Personal history of nicotine dependence; Z79.01 Long term (current) use of anticoagulants; Z79.84 Long term (current) use of oral hypoglycemic drugs; Z79.899 Other long term (current) drug therapy; Z68.32 Body mass index [BMI] 32.0-32.9, adult
CPT/HCPCS: 80048; 80053; 80162; 82962; 85025; 87040; 87149; 87205; 96374; 96375; 97116; 97166; 97535; 99284

== ENCOUNTER 2024-06-22 06:26 | Day surgery (SDC) | payer MEDICARE, SELFPAY ==
[2024-06-22] VITALS (12 sets, daily range): BP systolic 119–157; BP diastolic 65–96; BMI 33.3
[2024-06-22 08:11] LABS: Glucose - Point of Care 131 mg/dl (70-99)
[2024-06-22 10:31] LABS: Glucose - Point of Care 151 mg/dl (70-99)
[2024-06-22 11:42] LABS: Glucose - Point of Care 159 mg/dl (70-99)
[2024-06-22] MEDS: ERYTHROMYCIN 0.5% OPHTHALMIC OINTMENT 1 APPLIC OPHTH (14:29)
--- NOTE | 2024-06-22 15:04 | PTCARENOTE ---
[address] Hays. Patient complaining of left eye feeling scratchy at time of discharge. Cleaned the left eye with saline. Dr. Hays assessed patient and prescribed medication for patient to continue at home until discomfort
resolved. Pt d/c at 1440
== END 2024-06-22 14:40 | disposition home or self-care (01) ==
LOC: SDS 06:26
PROVIDERS: ATTENDING PHYSICIAN Urology; FAMILY PHYSICIAN Family Medicine
DX: N32.81 Overactive bladder (principal)
CPT/HCPCS: 64561; 72170; 76000; 82962; C1778; C1883; L8681

== ENCOUNTER 2024-06-30 06:14 | Day surgery (SDC) | payer MEDICARE, SELFPAY ==
[2024-06-30] VITALS (8 sets, daily range): BP systolic 110–150; BP diastolic 57–80; BMI 33.8
[2024-06-30 12:23] LABS: Glucose - Point of Care 131 mg/dl (70-99)
[2024-06-30 13:55] LABS: Glucose - Point of Care 136 mg/dl (70-99)
[2024-06-30] MEDS: SUBLIMAZE 50 MCG IV ×2 (13:55→14:12)
[2024-06-30] MEDS: ROXICODONE 10 MG PO (15:29)
== END 2024-06-30 15:32 | disposition home or self-care (01) ==
LOC: SDS 06:14
PROVIDERS: ATTENDING PHYSICIAN Urology
DX: N39.41 Urge incontinence (principal); R35.0 Frequency of micturition
CPT/HCPCS: 64590; 82962; C1767; C1787

== ENCOUNTER 2024-07-04 19:58 | Observation (INO) | payer MEDICARE, SELFPAY ==
[2024-07-04] VITALS (7 sets, daily range): BP systolic 117–134; BP diastolic 51–75; BMI 34.0; BMI 33.6
--- NOTE | 2024-07-04 15:24 | ED.MUSCINJ ---
HPI-Injury
General
Chief Complaint: Musculo-Skeletal Complaint
Source: patient
Exam Limitations: none
Time Seen by Provider: 07/04/24 15:19
Nursing documentation reviewed up to this point in time: agreed with
History of Present Illness-Injury
Is this injury a work related problem?: No
Is pt an associate of [facility]/[place]?: No
Initial Injury comments:
Patient to ED with complaint of right hip pain. States his leg gave out and he fell. He denies hitting his head. Incident occurred last PM. He was unable to get up. called 911 and he was assisted back to bed. Todayhe was unable to bear
weight. COmplains of pain to right hip. Brought to ED via EMS for eval. On eliquis. Denies hitting head. Denies any neck or back pain.
I spoke with his daughter Sanam: [phone] who has multiple concerns. Patient had an intestim device placed by urology on 06/22 for overactive bladder. Daughter states that since device was placed her father has not been doing well. SHe
reports increasing weakness, diaphoresis, vomiting when stim is on. Currently stim is off, controlled by patients aide. Daughter would like stim to stay off. Patient was seen by Dr. Gomez yesterday and told device was good, insertion site was
good. Daughter is also concerned that since his lasix was increased to 40mg daily from 20mg --, this has been adding to his weakness.
Past History
Past History
ED Past Medical History: Arrthythmia (Atrial fibrillation), CAD, CHF, CVA (with right sided weakness), GERD, HTN, Hypercholesterolemia, NIDDM, [place], Psychiatric (Anxiety, Depression) and Other (GI bleed, GI stent, Orthostatic hypotension, Iron
deficiency anemia, Neuropathy, Sleep apnea, UTI, )
ED Past Surgical History: Cardiac (stent), Cholecystectomy, Orthopedic (Bilateral hip replacements, Left rotator cuff surgery, Right knee replacement) and Other (Gastric bypass)
Patient has exhibited threatening behavior?: No
PSI?: No
Social History
Tobacco: Former smoker
Alcohol: None
Drug: None
Personal:
Living: with family
Employment: Not employed
Family History
Family History: Other (Reviewed and Noncontributory)
Review of Systems
Review of Systems
Allergies reviewed?: Yes
All Other Systems: ROS reviewed and negative except as documented in HPI and ROS
Constitutional: Reports no symptoms
EENT: Reports no symptoms
Respiratory: Reports no symptoms
Cardiac: Reports no symptoms
ABD/GI: Reports no symptoms
Musculoskeletal: Reports joint pain (Pain to right hip)
Skin: Reports no symptoms (erythema RLE. occlusive bandage on left martines. no wound visible.)
Neurological: Reports no symptoms
Psychiatric: Reports no symptoms
Musculoskeletal Injury Exam
Musculoskeletal Injury Exam
Right Hip:
Pain with Movement?: Moderate
Tender to palpation?: Moderate
External deformity and angulation?: None
Joint effusion?: None
Contusion?: Moderate
Hematoma-local bleeding into tissue?: Mild
Strain- Sprain- Tear (Connective tissue injury)?: Moderate
Crepitus with movement?: No
Joint instability?: No
Malalignment/deformity?: No
Range of motion: Limited
Distal skin color and temperature: normal-warm & good color
Capillary Refill: normal
Normal distal neurovascular exam?: Yes
Peripheral Pulses: posterior tibial (right): 3+ and dorsalis pedis (right): 3+
Phy Exam
General Physical Exam
General Presentation: mild distress
General age: appears stated age
General Skin: warm and dry
General Habitus: normal
Cardiovascular Exam
Cardiovascular Exam: regular rate/rhythm
Pulmonary Exam
Pulmonary Exam: lungs clear and no respiratory distress
Neurological Exam
Neurological Exam: alert, oriented x3, CN II-XII intact, no sensory deficits and speech normal
Musculoskeletal Exam
Musculoskeletal Exam: edema (+2 edema BLE. History of lymphedema) and neuro vasc intact
Skin Exam
Skin Exam: normal color, warm/dry, no rash and other (Occlusive bandage right martines. No visible wound. +erythema. He is on Keflex daily prophylactially - history of frequent cellulitis. )
Psychiatric Exam
Psychiatric Exam: normal mood/affect
Injury Course
Orders/Labs/Results
Orders:
Orders
07/04/24 Dinner
1800 calorie (15 carb) Diabetic
At Your Request: Limited Participation
07/04/24 15:23
Hip, Right 2-3 Views [CR Hip - RT w/wo Pel 2-3 Vw*] Urgent
Comment:
Reason For Exam: fall
Include a pelvis x-ray?: Yes
07/04/24 15:47
Complete Blood Count/With Diff Urgent
Comprehensive Metabolic Panel Urgent
Creatine Phosphokinase Urgent
Comment: ADD ON
07/04/24 16:04
Add On- LAB Urgent
Tests Added?: CPK
07/04/24 16:07
Knee, Right 4 or More Views [CR Knee- Right 4 Or More View*] Urgent
Comment:
Reason For Exam: fall
07/04/24 16:53
Knee Immobilizer Right-Treatme ONCE
07/04/24 16:54
Oxycodone/Acetaminophen [Percocet 5/325] 1 tablet PO NOW STA
07/04/24 18:00
Urinalysis Reflex To Culture Urgent
Date Specimen was Collected: 07/04/24
Time Specimen was Collected: 17:57
Urine Microscopic Reflex Cult Urgent
Urine Culture Urgent
RILEY Source: U
Specimen Description:
Date Specimen was Collected: 07/04/24
Time Specimen was Collected: 17:57
07/04/24 19:32
Admit/Transfer Patient As Directed
Co-Sign Provider:
Level of Care: Observation services
Assign to:: Telemetry
Physician / Group: sunny cruz
Diagnosis: mech fall R buttox pain over blad stim, volue depletion conc orthostatic hy
Reason for Telemetry: Arrhythmia
Date to Stop Telemetry: 07/07/24
Time to Stop Telemetry: 11:00
Reason for Hospitalization: mech fall R buttox pain over blad stim, volue depletion conc orthostatic
hypotension
07/04/24 19:33
Code Status As Directed
Resuscitation Status: Full Code
07/04/24 19:38
PRN Pain Medication Management As Directed
May give lesser potent ordered pain med per pt: Yes
preference::
Protocol:: Medication orders for pain may be administered in a
manner that supports deferring to patient preference
when the pt is:
- Requesting an ordered lesser potent pain medication.
Least to most potent pain medications are defined
as: acetaminophen < NSAID < tramadol < opioids
(morphine, oxycodone, hydromorphone).
- Requesting a lesser dose of the same medication IF
ORDERED.
- Requesting a less intrusive route of administration
if both routes are prescribed by the provider (PO <
IV).
07/04/24 19:49
Ice Application [Cold Application] As Directed
Location: buttox right or right knee
Frequency: Intermittent q2h
Duration of Application: No longer than 20 minutes
Method of Delivery: Ice packs
07/04/24 20:00
0.9% Sodium Chloride 500 ml [Nss] 500 ml IV 500 mls/hr
07/04/24 21:06
Acetaminophen [Tylenol] 650 mg PO Q6HPRN PRN
Apixaban [Eliquis] 5 mg PO BID
Dextrose 50%-Water [Dextrose 50% Syringe] 12.5 grams IV [id number] PRN
Glucagon [GlucaGen] 1 mg IM PRN PRN
Oxycodone/Acetaminophen [Percocet 5/325] 1 tablet PO Q4HPRN PRN
07/04/24 21:06
VTE Contraindication Routine
VTE Mechanical Device Contraindication: Medical Contraindication
Pharmocologic Contraindication: Medical Contraindication
Comment: Patient on Eliquis
Activity As Directed
Activity Level: With Assistance
Comment: Uses walker at baseline
Bedside Glucose Monitoring As Directed
Frequency: AC&HS
Additional Instructions:: Change to q6h if pt on TPN, tube feeding or not eating
Intake/ Output As Directed
Frequency: Per unit guidelines
Nursing to Place Non Medication Order As Directed
Physician Order: have pharmacy clarify naenda dose in am with patient's daughter Sanam
Precautions As Directed
Type of Precautions: Other
Comment: FALL
Vital Signs As Directed
Frequency: Per unit guidelines
Weight As Directed
Frequency: Daily
Ot Eval And Treat Routine
Pt Eval And Treat Routine
Activity Level: With Assistance
07/04/24 22:00
Gabapentin [Neurontin] 300 mg PO QID
Midodrine [ProAmatine] 5 mg PO TID @ 0800,1200,1700
07/05/24 06:00
Complete Blood Count/With Diff IN AM
Comprehensive Metabolic Panel IN AM
Glycohemoglobin (HgbA1c) IN AM
07/05/24 07:30
Insulin Aspart Corrective Low [Novolog Flexpen-Low Resistance] See Protocol SC AC
07/05/24 08:00
Cephalexin Monohydrate [Keflex] 500 mg PO DAILY
Ferrous Sulfate [Feosol] 325 mg PO DAILY
Fludrocortisone Acetate [Florinef] 0.2 mg PO DAILY
Memantine HCl [Namenda] 5 mg PO DAILY
Polyethylene Glycol Powder [Miralax] 17 grams PO DAILY
vibegron [Gemtesa] See Dose Instructions PO DAILY
Orthostatic Vital Signs As Directed
Orthostatic VS Frequency: BID
07/05/24 12:00
Digoxin [Lanoxin] 125 mcg PO NOON
07/05/24 18:00
Pravastatin Sodium [Pravachol] 40 mg PO QPM
Tamsulosin [Flomax] 0.4 mg PO QPM
07/06/24 06:00
Complete Blood Count/With Diff IN AM
Comprehensive Metabolic Panel IN AM
07/07/24 06:00
Complete Blood Count/With Diff IN AM
Comprehensive Metabolic Panel IN AM
07/07/24 08:00
Furosemide [Lasix] 20 mg PO [id number]@0800
07/07/24 11:00
DC Protocol for Telemetry ONCE
Abnormal Lab Results
07/04/24 07/04/24
15:47 18:00
RBC 3.60 L 10^6/uL
(4.70-6.10)
Hgb 12.3 L g/dL
(13.0-18.0)
Hct 36.6 L %
(39.0-52.0)
MCV 101.7 H fL
(80.0-94.0)
MCH 34.2 H pg
(27.0-31.0)
RDW 16.1 H %
(11.5-14.5)
Plt Count 109 L 10^3/uL
(130-400)
MPV 10.5 H fL
(7.4-10.4)
Abs Immat Gran (auto) 0.1 H 10^3/uL
(0-0.05)
Absolute Neuts (auto) 8.1 H 10^3/uL
(1.4-6.5)
Absolute Lymphs (auto) 0.4 L 10^3/uL
(1.2-3.4)
Absolute Monos (auto) 1.4 H 10^3/uL
(0.1-0.6)
Immature Gran % 0.6 H %
(0-0.5)
Neutrophils % 81.2 H %
(42.2-75.2)
Lymphocytes % 3.7 L %
(20.5-51.1)
Monocytes % 13.7 H %
(1.7-9.3)
Chloride 94 L mmol/L
(98-107)
Carbon Dioxide 35 H mmol/L
(22-30)
BUN 28 H mg/dl
(9-20)
Glucose 129 H mg/dl
(70-99)
Total Bilirubin 1.6 H mg/dl
(0.2-1.3)
Creatine Kinase 34 L U/L
(55-170)
Leukocyte Esterase Rfl 1+ A
(Negative)
Urine Albumin (Reflex) 2+ A
(Neg - Trace)
07/04/24 15:47
07/04/24 15:47
*Radiology
Radiology exam reviewed: radiology read reviewed
*Pulse Oximetry
Patient hypoxic: no
*Critical Care Note
Total Time (30-74mins, 75-104mins- exclusive of procedures): Not Applicable
Update Note
Update Note:
Labs, xray reviewed with patient and daughter (by phone). No evidence of fracture. He is not able to stand due to pain at stim insertion site and right knee pain. Placed in a knee immobilizer but he is still not able to stand or transfer due to
pain at stim site. Will admit for ambulatory dysfunction - he will not be able to manage at home. Recommend PT and case management consult. Daughter would like to be called with all updates. Sanam [phone]
ED Attending Note
-
Portions of this chart may have been created with voice recognition software.� Occasional wrong word or��sound alike� substitutions may have occurred due to the inherent limitations of voice recognition software.
Discharge Plan
Departure
Patient Disposition: Admit
Date of Disposition: 07/04/24
Time of Disposition: 18:07
Presentation/result/management discussed w/ accepting MD/DO: Hospitalist
Patient with high blood pressure during this ER visit?: No
Condition: Fair
Covid-19: Not Applicable
Discharge Problem:
Ambulatory dysfunction, Intractable pain
Interventions
Interventions:
*Risk Screen - Suicide Last Done: 07/04/24 14:42
*General Assessment Last Done: 07/04/24 15:38
*Neglect/Abuse Screening Last Done: 07/04/24 14:42
*ED- Fall Risk Assessment Last Done: 07/04/24 15:38
*ED COVID-19 Vaccine History Last Done: 07/04/24 15:38
*Nursing Disposition Last Done: 07/04/24 20:57
ED-Musculoskeletal Assessment Last Done: 07/04/24 15:38
Discharge Date and Time
Discharge Date/Time: 07/04/24 20:58
[2024-07-04 16:02] LABS: % Basophils 0.3 % (0-2); % Eosinophils 0.5 % (0-6); % Immature Granulocytes 0.6 % (0-0.5); % Lymphocytes 3.7 % (20.5-51.1); % Monocytes 13.7 % (1.7-9.3); % Neutrophils 81.2 % (42.2-75.2); Absolute Eosinophils 0.1 10^3/uL (0-0.7); Absolute Immature Granulocytes 0.1 10^3/uL (0-0.05); Absolute Lymphocytes 0.4 10^3/uL (1.2-3.4); Absolute Monocytes 1.4 10^3/uL (0.1-0.6); Absolute Neutrophils 8.1 10^3/uL (1.4-6.5); Hematocrit 36.6 % (39.0-52.0); Hemoglobin 12.3 g/dL (13.0-18.0); Mean Corp Hgb Conc. 33.6 g/dL (33.0-37.0); Mean Corpuscular Hgb 34.2 pg (27.0-31.0); Mean Corpuscular Volume 101.7 fL (80.0-94.0); Mean Platelet Volume 10.5 fL (7.4-10.4); Nucleated Red Blood Cells % 0 % (-); Platelet Count 109 10^3/uL (130-400); Red Cell Dist. Width 16.1 % (11.5-14.5)
[2024-07-04 16:08] LABS: ALT (SGPT) 23 U/L (0-50); AST (SGOT) 29 U/L (17-59); Albumin 4.1 g/dl (3.5-5.0); Alkaline Phosphatase 87 U/L (38-126); Blood Urea Nitrogen 28 mg/dl (9-20); Calcium 9.6 mg/dl (8.4-10.2); Carbon Dioxide 35 mmol/L (22-30); Chloride 94 mmol/L (98-107); Estimated Creatinine Clearance 89 ml/min; Glucose 129 mg/dl (70-99); Potassium 4.4 mmol/L (3.5-5.1); Sodium 138 mmol/L (135-145); Total Bilirubin 1.6 mg/dl (0.2-1.3); Total Protein 6.4 g/dl (6.3-8.2); eGFR > 60.00
[2024-07-04 16:29] LABS: Creatine Phosphokinase 34 U/L (55-170)
[2024-07-04] MEDS: PERCOCET 5/325 1 TABLET PO ×2 (17:16→21:53)
[2024-07-04 18:08] LABS: Urine Albumin 2+ (Neg - Trace); Urine Bilirubin Negative (Negative); Urine Character Clear (Clear); Urine Color Yellow; Urine Glucose Negative (Negative); Urine Ketone Negative (Negative); Urine Leukocyte 1+ (Negative); Urine Nitrite Negative (Negative); Urine Occult Blood Negative (Negative); Urine Specific Gravity 1.015 (<1.030); Urine Urobilinogen 1+ (Neg - 1+)
[2024-07-04 18:24] LABS: Urine Red Blood Cell 0-2 /HPF (0-2); Urine Squamous Cell 16-20 /LPF (Few); Urine White Cell 0-2 /HPF (0-5)
--- NOTE | 2024-07-04 18:26 | HPS.HSE ---
Family Physician
-
Family Physician: William Renner
Chief Complaint
-
Fall yesterday 07/03/2024 right buttocks pain, 3 days nausea, weakness x 2 days
History of Present Illness
79-year-old male complaining of right buttocks pain he states he was walking and his leg gave out he fell landing on his right side last night he denies hitting his head or LOC. He reports he was able to get up however did call 911 and he was
assisted back to bed. Today he was unable to bear weight complained of pain to the right hip. Patient reports to me he has had nausea for 3 days he has felt weak for the past 2 days and has not been eating the Meals on Wheels like it delivered to
his home where he lives with his Chayo. He is unsure what he has been eating. The ER spoke with patient's daughter Sanam [phone] who has multiple concerns. She reports her father had had an interstim device placed by urology on
06/22 for overactive bladder and since then she feels he is not doing well. SHe reports increasing weakness, diaphoresis, vomiting when stim is on. She states currently stim is off, controlled by patients aide. The daughter would like stim to stay
off. According to the ER chart the patient was seen by Dr. Gomez yesterday and told device was okay and the insertion site was okay however the daughter still wants the device off. The patient is not aware that his daughter turned the device off.
She is also concerned that since his lasix was increased to 40mg daily from 20mg M-W-, this has been adding to his weakness.
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
hypotension, HLD, DM2, CAD/NH/cardiac stent, anxiety, depression, GERD, GI bleed, gastric stent, neuropathy, sleep apnea, UTIs /overactive bladder with InterStim device placed, former smoker
Medical History
Past Medical History
Past Medical History: Reports Other
Additional Past Medical History:
dementia
Orthostatic hypotension
HTN�benign
Chronic CHF preserved EF
Chronic lymphedema/chronic cellulitis on permanent Keflex
O-syl-xpmcblemv
DM2,
CAD/NH/cardiac stent
Anxiety, Depression
GERD, GI bleed, gastric stent
HLD
neuropathy,
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
GERD
iron deficiency anemia
chronic thrombocytopenia
sleep apnea,
UTIs /overactive bladder with InterStim device placed
former smoker 40 years 1 to 2 pack/day
Past Surgical History: Reports Other
Additional Past Surgical History:
Cardiac stent
Gastric bypass
Bilateral hip replacement
Left rotator cuff repair
Right knee replacement
Cholecystectomy
Interstim device for overactive bladder
Social History
Tobacco: Former Smoker (40 years 1 to 2 pack/day quit 30 years ago)
Alcohol: Occasional
Personal:
Living: With Family ( Chayo)
Employment: Retired
Family History
Family History: Unable to Obtain
Allergies / Home Medications
Allergies reflects when Allergies were last updated in [facility].
Home Medications with original date entered in [facility]
Allergy/Medication List:
Allergies
Allergy/AdvReac Type Severity Reaction Status Date / Time
meperidine HCl [From Demerol] Allergy gets hyper Verified 06/30/24 12:11
ondansetron [From Zofran] Allergy N/V Verified 06/30/24 12:11
Home Medications
apixaban 5 mg tablet (Eliquis) 5 mg PO BID Blood Clot Prevention/Tx #60 tabs 05/21/23
midodrine 5 mg tablet 5 mg PO TID hypotension 04/15/24
cholecalciferol (vitamin D3) 25 mcg (1,000 unit) tablet (Vitamin D3) 25 mcg PO QPM Supplement 04/22/24
fludrocortisone 0.1 mg tablet 0.2 mg PO DAILY 04/22/24
pravastatin 40 mg tablet 40 mg PO QPM High Cholesterol 04/22/24
vibegron 75 mg tablet (Gemtesa) 75 mg PO DAILY Urinary Issue 04/22/24
digoxin 125 mcg (0.125 mg) tablet 125 mcg PO NOON 06/07/24
ferrous sulfate 325 mg (65 mg iron) tablet 325 mg PO DAILY 06/07/24
gabapentin 300 mg capsule 300 mg PO QID 06/07/24
tamsulosin 0.4 mg capsule (Flomax) 0.4 mg PO QPM 06/07/24
cephalexin 500 mg capsule 500 mg PO DAILY 06/30/24
metformin 500 mg tablet 500 mg PO BID 06/30/24
furosemide 40 mg tablet 40 mg PO DAILY 07/04/24
memantine 5 mg tablet 5 mg PO 07/04/24
polyethylene glycol 3350 17 gram oral powder packet (Miralax) 17 g PO DAILY 07/04/24
Review of Systems
-
History Source: Patient and Other (ER record)
A 12 point ROS was completed and negative except as noted: Yes
Constitutional: Reports Fatigue (X 2 days)
EENT: Denies Sore Throat or Runny Nose
Respiratory: Denies Cough or Trouble Breathing
Cardiac: Denies Chest Pain, Diaphoresis, Palpitations or Syncope
Abdomen/GI: Reports Nausea (X 2); Denies Abdominal Pain, Vomiting or Diarrhea
: Denies Dysuria, Frequency, Flank Pain, Incontinence, Difficulty Voiding or Urgency
Musculoskeletal: Reports Edema (+1 bilateral legs) and Other (Right buttocks pain overlying InterStim bladder implant right buttocks no ecchymosis dried Dermabond in place); Denies Joint Pain
Skin: Denies Itching or Rash
Neurological: Reports Dizzy (With standing) and Weakness (2 to 3 days); Denies Headache
Endocrine: Reports No Symptoms
Hematologic/Lymphatic: Reports No Symptoms
Psych: Reports Calm
Physical Exam
Vital Signs
Vital Signs
Temp Pulse Resp BP Pulse Ox
98.5 F 64 12 129/75 99
07/04/24 14:40 07/04/24 17:54 07/04/24 17:54 07/04/24 17:20 07/04/24 17:36
Physical Exam
General: Comfortable, Conversant and Pain (Right buttocks); No Fever or Chills
HEENT: NormoCephalic, Anicteric, Atraumatic, PERRLA, [place] Conjunctivae and No Ptosis
Respiratory: Clear; No Wheezes, Rales or Rhonchi
Cardiac: S1/S2, Regular Rhythm and Peripheral Edema (+1 bilateral legs); No Murmur, Rub or Gallop
GI: Soft, Non Tender, Non Distended, Normal Bowel Sounds and No Hepatosplenomegaly
Rectal: Deferred by Provider
Genito-urinary: Deferred by me
Musculoskeletal: No Clubbing, No Cyanosis, Edema, Left Lower Extremity (+1), Edema, Right Lower Extremity (+1) and Other (Right knee tenderness with suprapatellar effusion knee immobilizer in place); No Edema, Left Upper Extremity or Edema, Right
Upper Extremity
Skin: Warm, Dry and Other (Right buttocks pain overlying InterStim bladder implant right buttocks no ecchymosis dried Dermabond in place); No Rash
Neuro: Awake, Alert and Oriented (To name, , July, place [place], most of history, daughter's name but not what he has been eating for the past several days or his medications); No Slurred Speech, Facial Droop, Tremors or Sedated
Psych: Calm
Laboratory Results
-
07/04/24 15:47
07/04/24 15:47
Laboratory Results
Total Bilirubin 1.6 mg/dl (0.2-1.3) H 07/04/24 15:47
AST 29 U/L (17-59) 07/04/24 15:47
ALT 23 U/L (0-50) 07/04/24 15:47
Alkaline Phosphatase 87 U/L (38-126) 07/04/24 15:47
Impression/Plan
-
Impression/plan:
Observation Tele
# Mechanical fall on Eliquis with right buttocks pain around bladder stimulator site/acute on chronic ambulatory dysfunction
#UTIs /overactive bladder with InterStim device placed
-Ice , reposition to left side
-Patient uses walker at baseline
-Check orthostatics
-Consult urology Dr. Kim aware
-Hgb 12.3
-Tylenol mild pain, Percocet moderate severe pain
,-Continue MiraLAX
-Continue Gemtesa, Flomax 0.4 mg twice daily with hold parameters
-PT/OT/case management consult
X-ray right :no evidence of acute fracture or dislocation
#Mechanical fall with right knee pain
-Ice, Tylenol
-Patient with knee immobilizer in place
-Recommend follow-up with outpatient Ortho
X-ray: Status post right total knee replacement no evidence for acute fracture or dislocation.
Small joint effusion within the suprapatellar recess.
Focal calcification superior to the patella on the lateral view most likely within the distal quadriceps
#Weakness, fall concern for exacerbation of orthostatic hypotension versus volume depletion
-Check orthostatic vitals
-Continue midodrine 5 mg 3 times daily and fludrocortisone 0.1 mg 2 tablets in the a.m.
-Resume Lasix 20 mg Wednesday due to volume depletion, will hold tomorrow 07/05 and begin on 07/07/2024
-Stop Lasix 40 mg daily
-Will give IV NSS bolus 500 cc
# Nausea concern for hypoglycemia has not been eating
#Diabetes type 2
-HOLD metformin
-Patient reports allergy to Zofran
-Start SSI/Accu-Cheks
#Chronic heart failure preserved EF
I/O, daily weights
-Resume Lasix 20 mg Wednesday due to volume depletion
-Stop Lasix 40 mg daily
-Will give IV NSS bolus 500 cc
Weight 106.7 kg on 06/30/2024> today 107.6 kg 07/04/2024 1 kg/ 2.2 lb gain past 5 days
-Follows with [facility] cardiology
2D echo 05/17/2023: EF 70%, no wall abnormalities, diastolic function indeterminate due to A-fib, mild MR, mild to moderate TR, mildly dilated aortic root 4.1 cm
#Hx 06/08/2024 sepsis secondary to chronic right lower extremity cellulitis versus venous stasis dermatitis
-Continue Keflex 500 mg daily per ID recommendations long-term
#Permanent atrial fibrillation
-Continue Eliquis
-Continue digoxin 125 mcg p.o. daily with hold parameters
#CAD/NH/cardiac stent
-Continue Eliquis, pravastatin 40 mg p.m.
# Iron deficiency anemia
Hgb 12.3, MCV 101.7
-Continue iron 325 mg daily
#Chronic thrombocytopenia
Plt 109
# Dementia-mod
Patient oriented to year, month, [place] but not president or some of recent history
-continue Namenda 5 mg ? daily have pharmacy clarify dose tomorrow 07/05/2024
#History of CVA with residual right foot drop
-Continue Eliquis
#BPH/overactive bladder
continue flomax
continue gemtesa
#History of medical noncompliance
#Anxiety, Depression
-No reported meds
#GERD
GI bleed
gastric stent
-No reported meds
#HLD
-Continue pravastatin 40 mg at bedtime
# Neuropathy bilateral legs
-Continue gabapentin 300 mg 4 times daily
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
-Continue Eliquis, statin, BP control
#Sleep apnea
-Does not use CPAP
#Former smoker 40 years 1 to 2 pack/day
#Vitamin D deficiency
Continue vitamin D3
DVT prophylaxis
Continue RIDING DOUBLE Eliquis
Patient states full code
--- NOTE | 2024-07-04 18:38 | W.PN.UPDATE ---
Update Note
Progress Note Update
This note serves as an addendum to the H&P by leather coater MINDY Adriana CHAU
HPI
79M HFpEF, DM2, lymphedema, recurrent cellulitis of Rt Leg, recent InterStim stage 2 placement of permanent stimulator battery (06/30/24) for overactive bladder, detrusor overactivity seen at ER:
- pw acute R buttock pain s/p Fall at home
- reports leg gave out and he fell.
- denies hitting his head. Incident occurred last PM
- unable to get up. called 911 and he was assisted back to bed.
- Today he was unable to bear weight.
- Brought to ED via EMS for eval. On eliquis. Denies hitting head. Denies any neck or back pain.
Daughter Sanam: [phone] has some concerns.
- interim device placed by urology on 06/22 for overactive bladder.
- since device was placed her father has not been doing well.
- increasing weakness, diaphoresis, vomiting when stim is on.
- Currently stim is off, controlled by patients aide.
- Daughter would like stim to stay off.
- Patient was seen by Dr. Gomez yesterday and told device was good, insertion site was good.
- Daughter is also concerned that since his lasix was increased to 40mg daily from 20mg M-W-, this has been adding to his weakness.
PHX
Reviewed VS:
07/04/24
14:40 07/04/24
15:38
Temp 98.5 F
Pulse 56 52
Resp Rate 16
Blood pressure 126/59
SaO2 97
Oxygen Mode of Delivery Room air
PE
Gen: Not toxic
HEENT: anicteric
Neck: supple
Lungs: Clear and Symmetric
Cor: RRR S1 S2
Abdomen: Soft, Non Tender, Non Distended
SECURITY SPECIALIST: awake
MS: tender on deep palpation at site of InterStim. Well healed scar, dry, no inflamtion
Rt HARLEY; warmer than the contralateral side, no purulence, 1+ pitting edema noted bilaterally
Psych:
04/17/24 04/22/24 06/08/24
08:45 13:30 05:46
WBC 5.8 5.4
Hgb 11.8 L 11.8 L
MCV
Plt Count 89 L 124 L D 127 L
Chloride
Carbon Dioxide
BUN
Creatinine 0.8
eGFR > 60.00
Glucose 132 H
Total Bilirubin
Creatine Kinase
07/04/24
15:47
WBC 10.0
Hgb 12.3 L
MCV 101.7 H
Plt Count 109 L
Chloride 94 L
Carbon Dioxide 35 H
BUN 28 H
Creatinine 0.8
eGFR > 60.00
Glucose
Total Bilirubin 1.6 H
Creatine Kinase 34 L
Pending UA
Rt Hip XR
No evidence of acute fracture or dislocation.
Rt Knee XR
Status post right total knee replacement.
No evidence for acute fracture or dislocation.
Small joint effusion within the suprapatellar recess.
Focal calcification superior to the patella on the lateral view, most likely within the distal quadriceps.
ASSESSMENT & PLAN
Acute R buttock pain and tender on deep palpation at the side of InterStim s/p Fall at home ? Hematoma
Fall but NEG XR evidence of acute Fx
Acute gait dysfunction : Unable to Wt bear due to due to pain at stim insertion site and right knee pain.
HX Rt TKA
- Narcotic analgesia PRN
- PT/OT evaluate
HX non purulent Cellulitis of the RLE vs Venous Stasis Dermatitis
Recurrent cellulitis HX
Chronic Lymphedema HX
- compression - Tubigrip, he would benefit from wearing these chronically
- elevation at least 1 hour twice daily
- On Keflex 500 mg PO qd indefinitely as suppression least 1 year to hopefully break up the cycle of recurrence per ID/Dr Larios
Acute R buttock pain and tender on deep palpation at the side of InterStim s/p Fall at home ? Hematoma
Post op buttock scar- C/D/I
InterStim stage 2 placement of permanent stimulator battery (06/30/24) Indication: Overactive bladder, detrusor overactivity.
Currently stim is off, controlled by patients aide.
- Patient was seen by Dr. Gomez yesterday and told device was good, insertion site was good.
- Daughter would like stim to stay off.
- Urology consult
Permanent AF
- c/w Eliquis
- not on any arrhythmics or AV ish blocking agents UNDERWRITING ASSISTANT
Orthostatic hypotension HX
on UNDERWRITING ASSISTANT midodrine and fludrocortisone
DMT2
- last HgbA1c 5.8 on 04/15/2024
- add ISS low
- Diet controlled
Chronic Thrombocytopenia
monitor
HX Dementia; Vascular vs JARET ?
Hx CVA with Residual Right Foot Drop
on MoW deliver to house
- cont, donepezil
DVT Px Eliquis
Code Status: Full Code
Obs TLM
[2024-07-04] MEDS: NSS 500 IV (21:27)
[2024-07-04] MEDS: ELIQUIS 5 MG PO (21:33)
[2024-07-04] MEDS: ProAmatine 5 MG PO (21:33)
[2024-07-04] MEDS: NEURONTIN 300 MG PO (21:36)
[2024-07-04 21:59] LABS: Glucose - Point of Care 173 mg/dl (70-99)
--- NOTE | 2024-07-04 23:15 | PTCARENOTE ---
Pt arrived to room 424-01. Pt performed stand and pivot from stretcher to bed with x2 assistance. Pt AAOx3, VSS. Pt c/o 9/10 pain in right buttock region. Pt oriented to room, call abernathy placed within reach.
[2024-07-05] VITALS (10 sets, daily range): BP systolic 129–151; BP diastolic 62–97; PULSE 53–73; O2SAT 97; BMI 33.6; BMI 33.2
[2024-07-05] MEDS: PERCOCET 5/325 1 TABLET PO ×3 (04:04→19:44)
[2024-07-05 07:24] LABS: Glucose - Point of Care 117 mg/dl (70-99)
[2024-07-05] MEDS: NOVOLOG FLEXPEN-LOW RESISTANCE SC ×3 (07:31→17:10)
[2024-07-05] MEDS: KEFLEX 500 MG PO (07:34)
[2024-07-05] MEDS: NAMENDA 5 MG PO (07:35)
[2024-07-05] MEDS: FEOSOL 325 MG PO (07:35)
[2024-07-05] MEDS: FLORINEF 0.2 MG PO (07:35)
[2024-07-05] MEDS: ELIQUIS 5 MG PO ×2 (07:36→19:43)
[2024-07-05] MEDS: ProAmatine 5 MG PO ×3 (07:36→17:20)
[2024-07-05] MEDS: NEURONTIN 300 MG PO ×4 (07:37→21:25)
[2024-07-05] MEDS: MIRALAX 17 GRAMS PO (07:37)
[2024-07-05 07:55] LABS: % Basophils 0.3 % (0-2); % Eosinophils 1.2 % (0-6); % Immature Granulocytes 0.4 % (0-0.5); % Lymphocytes 6.9 % (20.5-51.1); % Monocytes 15.4 % (1.7-9.3); % Neutrophils 75.8 % (42.2-75.2); Absolute Eosinophils 0.1 10^3/uL (0-0.7); Absolute Lymphocytes 0.5 10^3/uL (1.2-3.4); Absolute Neutrophils 5.1 10^3/uL (1.4-6.5); Hematocrit 30.7 % (39.0-52.0); Hemoglobin 10.7 g/dL (13.0-18.0); Mean Corp Hgb Conc. 34.9 g/dL (33.0-37.0); Mean Corpuscular Hgb 34.1 pg (27.0-31.0); Mean Corpuscular Volume 97.8 fL (80.0-94.0); Mean Platelet Volume 10.6 fL (7.4-10.4); Nucleated Red Blood Cells % 0 % (-); Platelet Count 90 10^3/uL (130-400); Red Blood Cell Count 3.14 10^6/uL (4.70-6.10); Red Cell Dist. Width 15.9 % (11.5-14.5); White Blood Cell Count 6.7 10^3/uL (4.8-10.8)
[2024-07-05 08:11] LABS: ALT (SGPT) 19 U/L (0-50); AST (SGOT) 26 U/L (17-59); Albumin 3.4 g/dl (3.5-5.0); Alkaline Phosphatase 77 U/L (38-126); Blood Urea Nitrogen 26 mg/dl (9-20); Calcium 8.8 mg/dl (8.4-10.2); Carbon Dioxide 34 mmol/L (22-30); Chloride 99 mmol/L (98-107); Estimated Creatinine Clearance 88 ml/min; Glucose 118 mg/dl (70-99); Potassium 4.1 mmol/L (3.5-5.1); Sodium 139 mmol/L (135-145); Total Bilirubin 1.4 mg/dl (0.2-1.3); Total Protein 5.7 g/dl (6.3-8.2); eGFR > 60.00
--- NOTE | 2024-07-05 08:34 | VNURNOTE ---
Chart reviewed. Patient is current with [facility] nursing. Will continue to follow hospital course and DC plans.
[2024-07-05 09:26] LABS: Glycohemoglobin (HgbA1c) 5.9 % (4.0-5.6)
--- NOTE | 2024-07-05 10:20 | CONS.URO ---
Consultation
-
Requesting Provider: ED
Performing Provider: Navdeep
Reason for Consultation: interstim
Medical History
History of Present Illness
Adriana Nova' admission note: '79-year-old male complaining of right buttocks pain he states he was walking and his leg gave out he fell landing on his right side last night he denies hitting his head or LOC. He reports he was able to get up
however did call 911 and he was assisted back to bed. Today he was unable to bear weight complained of pain to the right hip. Patient reports to me he has had nausea for 3 days he has felt weak for the past 2 days and has not been eating the
Meals on Wheels like it delivered to his home where he lives with his Chayo. He is unsure what he has been eating. The ER spoke with patient's daughter Sanam [phone] who has multiple concerns. She reports her father had had an
interstim device placed by urology on 06/22 for overactive bladder and since then she feels he is not doing well. SHe reports increasing weakness, diaphoresis, vomiting when stim is on. She states currently stim is off, controlled by patients aide.
The daughter would like stim to stay off. According to the ER chart the patient was seen by Dr. Gomez yesterday and told device was okay and the insertion site was okay however the daughter still wants the device off. The patient is not aware
that his daughter turned the device off. She is also concerned that since his lasix was increased to 40mg daily from 20mg --, this has been adding to his weakness.'
Past Medical History
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
hypotension, HLD, DM2, CAD/PA/cardiac stent, anxiety, depression, GERD, GI bleed, amos)
Allergies/Home Medications
Allergies
Allergy/AdvReac Type Severity Reaction Status Date / Time
meperidine HCl [From Demerol] Allergy gets hyper Verified 06/30/24 12:11
ondansetron [From Zofran] Allergy N/V Verified 06/30/24 12:11
Home Medications
�Medication �Instructions �Recorded �Confirmed �Type
apixaban 5 mg tablet (Eliquis) 5 mg PO BID Blood Clot 05/21/23 07/04/24 Rx
Prevention/Tx #60 tabs
midodrine 5 mg tablet 5 mg PO TID hypotension 04/15/24 07/04/24 History
cholecalciferol (vitamin D3) 25 25 mcg PO QPM Supplement 04/22/24 07/04/24 History
mcg (1,000 unit) tablet (Vitamin
D3)
fludrocortisone 0.1 mg tablet 0.2 mg PO DAILY 04/22/24 07/04/24 History
pravastatin 40 mg tablet 40 mg PO QPM High Cholesterol 04/22/24 07/04/24 History
vibegron 75 mg tablet (Gemtesa) 75 mg PO DAILY Urinary Issue 04/22/24 07/04/24 History
digoxin 125 mcg (0.125 mg) tablet 125 mcg PO NOON 06/07/24 07/04/24 History
ferrous sulfate 325 mg (65 mg 325 mg PO DAILY 06/07/24 07/04/24 History
iron) tablet
gabapentin 300 mg capsule 300 mg PO QID 06/07/24 07/04/24 History
tamsulosin 0.4 mg capsule (Flomax) 0.4 mg PO QPM 06/07/24 07/04/24 History
cephalexin 500 mg capsule 500 mg PO DAILY 06/30/24 07/04/24 History
metformin 500 mg tablet 500 mg PO BID 06/30/24 07/04/24 History
furosemide 40 mg tablet 40 mg PO DAILY 07/04/24 07/04/24 History
memantine 5 mg tablet 5 mg PO 07/04/24 History
polyethylene glycol 3350 17 gram 17 g PO DAILY 07/04/24 07/04/24 History
oral powder packet (Miralax)
Physical Exam
Vital Signs
Vital Signs
Temp Pulse Resp BP Pulse Ox
98.2 F 62 20 130/62 94
07/05/24 07:00 07/05/24 07:00 07/05/24 07:00 07/05/24 07:00 07/05/24 07:00
Lab / Testing Results
Laboratory Results
07/05/24 07:09
07/05/24 07:09
Physical Exam
gluteal interstim site demonstrates no evidence of cellulitis
Assessment / Plan
-
interstim device in place w/o evidence of local infection
no uro action advised
--- NOTE | 2024-07-05 10:31 | W.PN.HOSP.TC ---
Today's Communication/Plan
-
PT/OT
Assessment / Plan
Assessment / Plan
Gen-awake, alert, NAD
HEENT-NC, AT, anicteric, clear oral mm
Neck-supple
CV-reg, no M, +S1/S2
Lungs-clear B/L
Abd-soft, NT, ND
Ext-no edema
Musculoskeletal-no cyanosis, clubbing
Skin-warm and dry
Neuro-grossly non-focal
Psych-calm, cooperative
Ambulatory dysfunction, fall -no evidence of fracture on imaging. Awaiting PT/OT. Not orthostatic.
Family concerned about weakness. Furosemide dose reduced back to his baseline. Apparently daughter claims that the weakness came on after the dose of furosemide was increased prior to admission.
Overactive bladder/BPH -bladder stimulator off at family's request. Family states that the weakness worsened with use of the bladder stimulator. I spoke with Dr. Gomez of urology, he recommends outpatient follow-up. Okay to leave stimulator off.
Permanent atrial fibrillation -asymptomatic bradycardia possibly related to digoxin. Prior to digoxin use he had rapid atrial fibrillation. Will therefore not discontinue digoxin. Recommend follow-up with cardiology. Continue Eliquis.
Essential hypertension
CAD - history of LA.
Chronic heart failure preserved EF - stable. Furosemide dose reduced to previous dose at family's request.
DM2 without hyperglycemia -glucose 118 this morning. Hemoglobin A1c 5.9%. Was on metformin prior to admission. Use sliding scale insulin for now.
Chronic orthostatic hypotension -continue midodrine, fludrocortisone. Not orthostatic currently.
History of stroke with residual right foot drop
GERD
Hyperlipidemia depression/anxiety
Chronic lower extremity lymphedema -recommend follow-up with lymphedema clinic. On chronic suppressive cephalexin for prevention of cellulitis.
Chronic thrombocytopenia -stable. Recommend outpatient follow-up.
Obesity due to excess calories
Dementia
Full code
Updated daughter Clair on the phone. All questions answered.
Anticipated Discharge: Within 24 hours
Subjective/Interval History
-
Date of Service: July 05, 2024
Patient seen and examined. Complaining of soreness around right leg/thigh
Objective Data
-
Labs:
Laboratory Results
07/05/24
07:09
WBC 6.7
Hgb 10.7 L
Hct 30.7 L
Plt Count 90 L
Sodium 139
Potassium 4.1
Chloride 99
Carbon Dioxide 34 H
BUN 26 H
Creatinine 0.8
Glucose 118 H
Calcium 8.8
Total Bilirubin 1.4 H
AST 26
ALT 19
Alkaline Phosphatase 77
Vital Signs:
Vital Signs
Temp Pulse Resp BP Pulse Ox
98.2 F 62 20 130/62 94
07/05/24 07:00 07/05/24 07:00 07/05/24 07:00 07/05/24 07:00 07/05/24 07:00
I&O
07/04/24 07/05/24 07/06/24
06:59 06:59 06:59
Intake Total 740 / 740
Output Total 400 / 400 500 / 500
Balance 340 / 340 -500 / -500
Review of Systems
-
History Source: Patient
All other systems: Reviewed and negative
[2024-07-05 11:28] LABS: Glucose - Point of Care 150 mg/dl (70-99)
--- NOTE | 2024-07-05 14:32 | WOUNDNOTE ---
RIGHT UPPER BUTTOCK
--- NOTE | 2024-07-05 14:33 | WOUNDNOTE ---
RIGHT UPPER BUTTOCK/RIGHT LOWER BACK
--- NOTE | 2024-07-05 15:27 | WOUNDNOTE ---
[facility] RN NOTE: Reviewed chart and met with patient. Patient with recent fall. He is a poor historian of fall and has history of dementia. Right buttock with surgical scar from bladder stimulator. Buttocks with scattered bruises, no drainage or
induration at surgical scar. Scattered superficial skin tears on left arm and chest appropriately dressed by nursing staff. Heels intact. Patient with static air overlay and air cushion to chair. Patient was able to stand with assistance of 2.
Awaiting PT/OT consult. Will sigh off.
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
[2024-07-05 16:55] LABS: Glucose - Point of Care 126 mg/dl (70-99)
[2024-07-05] MEDS: FLOMAX PO (17:11)
[2024-07-05] MEDS: PRAVACHOL 40 MG PO (17:20)
[2024-07-05 22:21] LABS: Glucose - Point of Care 169 mg/dl (70-99)
[2024-07-06 03:25] VITALS: BP 141/69
[2024-07-06] MEDS: PERCOCET 5/325 1 TABLET PO ×2 (03:47→16:22)
--- NOTE | 2024-07-06 04:40 | PTCARENOTE ---
Pt used call abernathy, upon entering pt requesting crackers and ice water, when RN returned with items pt asking if coffee available. RN stated no coffee available at the moment but available to order at 0630. Pt then requested tea, RN stated not
positive if any available on floor but will check. RN returned to inform pt that no tea bags were available on floor. Pt became angry yelling, 'this is fucking bullshit, there is no way there is no fucking tea on this floor, I have seen it before.'
Pt educated supplies are not always available. Pt requesting to talk to nurse investments manager- Pt educated not available at HS but charge nurse can be spoken to. Charge nurse spoke to pt- pt continues with yelling 'get me some fucking tea and get out of my
room.' Pt educated this behavior is unacceptable. Pt apologized. RN found tea on different unit and provided to pt. Pt calm.
[2024-07-06 05:43] VITALS: BMI 33.8
[2024-07-06 07:35] VITALS: BP 141/70
[2024-07-06 07:56] LABS: Glucose - Point of Care 146 mg/dl (70-99)
[2024-07-06 08:01] LABS: % Basophils 0.1 % (0-2); % Eosinophils 1.8 % (0-6); % Immature Granulocytes 0.6 % (0-0.5); % Lymphocytes 6.7 % (20.5-51.1); % Monocytes 15.8 % (1.7-9.3); Absolute Eosinophils 0.1 10^3/uL (0-0.7); Absolute Lymphocytes 0.5 10^3/uL (1.2-3.4); Absolute Monocytes 1.1 10^3/uL (0.1-0.6); Absolute Neutrophils 5.3 10^3/uL (1.4-6.5); Hematocrit 33.3 % (39.0-52.0); Hemoglobin 10.9 g/dL (13.0-18.0); Mean Corp Hgb Conc. 32.7 g/dL (33.0-37.0); Mean Corpuscular Volume 97.7 fL (80.0-94.0); Mean Platelet Volume 10.4 fL (7.4-10.4); Nucleated Red Blood Cells % 0 % (-); Platelet Count 112 10^3/uL (130-400); Red Blood Cell Count 3.41 10^6/uL (4.70-6.10); Red Cell Dist. Width 15.8 % (11.5-14.5)
[2024-07-06] MEDS: NOVOLOG FLEXPEN-LOW RESISTANCE SC ×3 (08:15→17:43)
[2024-07-06 08:30] LABS: ALT (SGPT) 19 U/L (0-50); AST (SGOT) 22 U/L (17-59); Albumin 3.7 g/dl (3.5-5.0); Alkaline Phosphatase 97 U/L (38-126); Blood Urea Nitrogen 27 mg/dl (9-20); Calcium 9.2 mg/dl (8.4-10.2); Carbon Dioxide 32 mmol/L (22-30); Chloride 98 mmol/L (98-107); Estimated Creatinine Clearance 89 ml/min; Glucose 154 mg/dl (70-99); Potassium 3.9 mmol/L (3.5-5.1); Sodium 137 mmol/L (135-145); Total Bilirubin 1.2 mg/dl (0.2-1.3); Total Protein 6.1 g/dl (6.3-8.2); eGFR > 60.00
[2024-07-06] MEDS: ELIQUIS 5 MG PO ×2 (09:10→20:13)
[2024-07-06] MEDS: FEOSOL 325 MG PO (09:11)
[2024-07-06] MEDS: FLORINEF 0.2 MG PO (09:12)
[2024-07-06] MEDS: KEFLEX 500 MG PO (09:14)
[2024-07-06] MEDS: MIRALAX 17 GRAMS PO (09:15)
[2024-07-06] MEDS: NAMENDA 5 MG PO (09:16)
[2024-07-06] MEDS: NEURONTIN 300 MG PO ×4 (09:17→21:49)
[2024-07-06] MEDS: ProAmatine 5 MG PO ×3 (09:19→16:23)
[2024-07-06 10:45] VITALS: BP 141/81; BP 149/72; BP 158/82; PULSE 55; PULSE 59; PULSE 75
--- NOTE | 2024-07-06 11:29 | W.PN.HOSP.TC ---
Today's Communication/Plan
-
Compression therapy for legs
Discharge planning
Assessment / Plan
Assessment / Plan
Gen-awake, alert, NAD
HEENT-NC, AT, anicteric, clear oral mm
Neck-supple
CV-reg, no M, +S1/S2
Lungs-clear B/L
Abd-soft, NT, ND
Ext-bilateral lower extremity edema
Musculoskeletal-no cyanosis, clubbing
Skin-warm and dry, bilateral lower extremity hyperpigmentation
Neuro-grossly non-focal
Psych-calm, cooperative
Ambulatory dysfunction, fall -no evidence of fracture on imaging. Not orthostatic. Continue PT/OT.
Family concerned about weakness. Furosemide dose reduced back to his baseline per family request. Apparently daughter claims that the weakness came on after the dose of furosemide was increased prior to admission.
Overactive bladder/BPH -bladder stimulator off at family's request. Family states that the weakness worsened with use of the bladder stimulator. I spoke with Dr. Gomez of urology, he recommends outpatient follow-up. Okay to leave stimulator off.
Permanent atrial fibrillation -asymptomatic bradycardia possibly related to digoxin. Sinus pauses noted, all of them are less than 3 seconds. Prior to digoxin use he had rapid atrial fibrillation. Will therefore not discontinue digoxin.
Recommend follow-up with cardiology. Continue Eliquis.
I did speak with cardiology (Dr. Celestin) and they recommended continuing current care without changes.
TSH 0.3, recommend rechecking after discharge with PCP.
Essential hypertension -stable.
CAD - history of [place].
Chronic heart failure preserved EF - stable. Furosemide dose reduced to previous dose at family's request.
DM2 without hyperglycemia -glucose 154 this morning. Hemoglobin A1c 5.9%. Was on metformin prior to admission. Use sliding scale insulin for now.
Chronic orthostatic hypotension -continue midodrine, fludrocortisone. Not orthostatic currently.
History of stroke with residual right foot drop
GERD
Hyperlipidemia depression/anxiety
Chronic lower extremity lymphedema -recommend follow-up with lymphedema clinic. On chronic suppressive cephalexin for prevention of cellulitis. Compression therapy with Eric wraps ordered. Recommend to continue after discharge. Discussed with
patient.
Chronic thrombocytopenia -stable. Recommend outpatient follow-up.
Obesity due to excess calories
Dementia
Full code
Dispo -stable for discharge to SNF. Case management aware.
Anticipated Discharge: Within 24 hours
Subjective/Interval History
-
Date of Service: July 06, 2024
Patient seen and examined. No complaints.
Objective Data
-
Labs:
Laboratory Results
07/06/24
06:58
WBC 7.0
Hgb 10.9 L
Hct 33.3 L
Plt Count 112 L D
Sodium 137
Potassium 3.9
Chloride 98
Carbon Dioxide 32 H
BUN 27 H
Creatinine 0.8
Glucose 154 H
Calcium 9.2
Total Bilirubin 1.2
AST 22
ALT 19
Alkaline Phosphatase 97
Vital Signs:
Vital Signs
Temp Pulse Resp BP Pulse Ox
98.2 F 55 22 158/82 98
07/06/24 10:45 07/06/24 10:45 07/06/24 10:45 07/06/24 10:45 07/06/24 10:45
I&O
07/05/24 07/06/24 07/07/24
06:59 06:59 06:59
Intake Total 740 / 740 480 / 480
Output Total 400 / 400 1150 / 1150
Balance 340 / 340 -670 / -670
Review of Systems
-
History Source: Patient
All other systems: Reviewed and negative
[2024-07-06 12:52] LABS: Glucose - Point of Care 124 mg/dl (70-99)
--- NOTE | 2024-07-06 13:37 | CM ---
Addendum entered by Mary Ramírez 07/06/24 13:54:
CM spoke with daughter, referrals placed to [facility] and [facility].
Original Note:
CM reviewed chart, patient seen bedside, discussed PT recommendations of SNF, patient agreeable to rehab. VM left for patients daughter updating that patient is agreeable for rehab, patient admitted under observation status. Daughter reports she is
in a meeting, will call CM back with list of facilities to send referrals. Patient will require insurance auth once bed found. CM will continue to follow for all discharge planning needs.
Plan; SNF pending accepting facility, will require auth.
[2024-07-06 15:05] VITALS: BP 136/62
[2024-07-06 17:42] LABS: Glucose - Point of Care 142 mg/dl (70-99)
[2024-07-06] MEDS: PRAVACHOL 40 MG PO (17:48)
[2024-07-06] MEDS: FLOMAX PO (17:49)
[2024-07-06 21:12] LABS: Glucose - Point of Care 198 mg/dl (70-99)
[2024-07-06 22:14] VITALS: PULSE 60
[2024-07-06 23:00] VITALS: BP 149/81
[2024-07-07] VITALS (7 sets, daily range): BP systolic 133–156; BP diastolic 49–82; PULSE 47; O2SAT 97; BMI 33.9
[2024-07-07] MEDS: PERCOCET 5/325 1 TABLET PO ×3 (03:18→21:49)
[2024-07-07 07:33] LABS: Glucose - Point of Care 133 mg/dl (70-99)
[2024-07-07] MEDS: NOVOLOG FLEXPEN-LOW RESISTANCE SC ×2 (07:40→17:11)
[2024-07-07] MEDS: MIRALAX 17 GRAMS PO (07:47)
[2024-07-07] MEDS: KEFLEX 500 MG PO (07:47)
[2024-07-07] MEDS: NAMENDA 5 MG PO (07:47)
[2024-07-07] MEDS: FLORINEF 0.2 MG PO (07:47)
[2024-07-07] MEDS: ProAmatine 5 MG PO ×3 (07:48→17:12)
[2024-07-07] MEDS: FEOSOL 325 MG PO (07:48)
[2024-07-07] MEDS: NEURONTIN 300 MG PO ×4 (07:50→21:42)
[2024-07-07] MEDS: ELIQUIS 5 MG PO ×2 (07:50→21:41)
[2024-07-07] MEDS: LASIX 20 MG PO (07:57)
[2024-07-07 08:20] LABS: % Basophils 0.4 % (0-2); % Eosinophils 1.6 % (0-6); % Immature Granulocytes 0.9 % (0-0.5); % Lymphocytes 7.7 % (20.5-51.1); % Neutrophils 75.4 % (42.2-75.2); Absolute Eosinophils 0.1 10^3/uL (0-0.7); Absolute Immature Granulocytes 0.1 10^3/uL (0-0.05); Absolute Lymphocytes 0.4 10^3/uL (1.2-3.4); Absolute Monocytes 0.8 10^3/uL (0.1-0.6); Absolute Neutrophils 4.3 10^3/uL (1.4-6.5); Hematocrit 33.7 % (39.0-52.0); Mean Corp Hgb Conc. 35.6 g/dL (33.0-37.0); Mean Corpuscular Hgb 35.7 pg (27.0-31.0); Mean Corpuscular Volume 100.3 fL (80.0-94.0); Mean Platelet Volume 10.2 fL (7.4-10.4); Nucleated Red Blood Cells % 0 % (-); Platelet Count 125 10^3/uL (130-400); Red Blood Cell Count 3.36 10^6/uL (4.70-6.10); Red Cell Dist. Width 15.9 % (11.5-14.5); White Blood Cell Count 5.7 10^3/uL (4.8-10.8)
[2024-07-07 08:45] LABS: ALT (SGPT) 22 U/L (0-50); AST (SGOT) 23 U/L (17-59); Albumin 3.7 g/dl (3.5-5.0); Alkaline Phosphatase 107 U/L (38-126); Blood Urea Nitrogen 25 mg/dl (9-20); Calcium 9.8 mg/dl (8.4-10.2); Carbon Dioxide 36 mmol/L (22-30); Chloride 100 mmol/L (98-107); Estimated Creatinine Clearance 71 ml/min; Glucose 145 mg/dl (70-99); Potassium 4.2 mmol/L (3.5-5.1); Sodium 141 mmol/L (135-145); Total Bilirubin 1.1 mg/dl (0.2-1.3); Total Protein 6.3 g/dl (6.3-8.2); eGFR > 60.00
[2024-07-07 12:02] LABS: Glucose - Point of Care 167 mg/dl (70-99)
[2024-07-07] MEDS: NOVOLOG FLEXPEN-LOW RESISTANCE 1 UNITS SC (12:32)
--- NOTE | 2024-07-07 12:34 | W.PN.HOSP.TC ---
Addendum entered and electronically signed by Rafita Bourne DO 07/07/24 14:24:
Patient's daughter requesting that we turn his bladder stimulator back on to see if any of his symptoms recur. I sent a [place] text to urology Dr. Gomez to see if we can do so today.
If no symptoms then she is requesting that tomorrow we resume the higher dose of furosemide.
Original Note:
Today's Communication/Plan
-
Continue current care
Assessment / Plan
Assessment / Plan
Gen-awake, alert, NAD
HEENT-NC, AT, anicteric, clear oral mm
Neck-supple
CV-reg, no M, +S1/S2
Lungs-clear B/L
Abd-soft, NT, ND
Ext-bilateral lower extremity edema
Musculoskeletal-no cyanosis, clubbing
Skin-warm and dry, bilateral lower extremity hyperpigmentation
Neuro-grossly non-focal
Psych-calm, cooperative
Ambulatory dysfunction, fall -no evidence of fracture on imaging. Not orthostatic. Continue PT/OT.
Family concerned about weakness. Furosemide dose reduced back to his baseline per family request. Apparently daughter claims that the weakness came on after the dose of furosemide was increased prior to admission.
Overactive bladder/BPH -bladder stimulator off at family's request. Family states that the weakness worsened with use of the bladder stimulator. I spoke with Dr. Gomez of urology, he recommends outpatient follow-up. Okay to leave stimulator off.
Permanent atrial fibrillation -asymptomatic bradycardia possibly related to digoxin. Sinus pauses noted, all of them are less than 3 seconds. Nursing has been holding doses of digoxin due to bradycardia. Prior to digoxin use he had rapid atrial
fibrillation. Will therefore not discontinue digoxin. Recommend follow-up with cardiology. Continue Eliquis.
I did speak with cardiology (Dr. Celestin) and they recommended continuing digoxin on discharge without any changes.
TSH 0.3, recommend rechecking after discharge with PCP.
Essential hypertension -stable.
CAD - history of [place].
Chronic heart failure preserved EF - stable. Furosemide dose reduced to previous dose at family's request.
DM2 without hyperglycemia -glucose 133 this morning. Hemoglobin A1c 5.9%. Was on metformin prior to admission. Use sliding scale insulin for now.
Chronic orthostatic hypotension -continue midodrine, fludrocortisone. Not orthostatic currently.
History of stroke with residual right foot drop
GERD
Hyperlipidemia depression/anxiety
Chronic lower extremity lymphedema -recommend follow-up with lymphedema clinic. On chronic suppressive cephalexin for prevention of cellulitis. Compression therapy with Eric wraps ordered. Recommend to continue after discharge. Discussed with
patient.
Chronic thrombocytopenia -stable. Recommend outpatient follow-up.
Obesity due to excess calories
Dementia
Full code
Dispo -stable for discharge to SNF. Case management aware.
Anticipated Discharge: Within 24 hours
Subjective/Interval History
-
Date of Service: July 07, 2024
Patient seen and examined. No complaints.
Objective Data
-
Labs:
Laboratory Results
07/07/24
07:45
WBC 5.7
Hgb 12.0 L
Hct 33.7 L
Plt Count 125 L
Sodium 141
Potassium 4.2
Chloride 100
Carbon Dioxide 36 H
BUN 25 H
Creatinine 1.0
Glucose 145 H
Calcium 9.8
Total Bilirubin 1.1
AST 23
ALT 22
Alkaline Phosphatase 107
Vital Signs:
Vital Signs
Temp Pulse Resp BP Pulse Ox
97.5 F 55 18 156/80 96
07/07/24 12:02 07/07/24 12:30 07/07/24 12:02 07/07/24 12:02 07/07/24 12:02
I&O
07/06/24 07/07/24 07/08/24
06:59 06:59 06:59
Intake Total 480 / 480 1500 / 1500
Output Total 1150 / 1150 1530 / 1530 800 / 800
Balance -670 / -670 -30 / -30 -800 / -800
Review of Systems
-
History Source: Patient
All other systems: Reviewed and negative
--- NOTE | 2024-07-07 15:05 | W.PN.URO.CBU ---
Today's Communication / Plan
-
Follow up as scheduled after discharge
Assessment / Plan
-
79M with refractory frequent urination/OAB
s/p Interstim placement 06/2024
Admitted for ambulatory dysfunction
- Much less pain at stimulator implant site since Wednesday, well healing
- Unclear if the stimulatory is currently on or off but patient is happy with current voiding symptoms. After discussion with daughter we agreed to leave it in whatever state it is currently in until follow up with me as scheduled
- Stable for discharge from urology standpoint
Diagnosis
-
Date of Service: July 07, 2024
-
Patient Diagnosis:
Overactive bladder
Nocturia
Post Op Day:
Subjective
-
Much less pain over stimulator site today
Less nocturia
Objective
-
Vital Signs
Temp Pulse Resp BP Pulse Ox
97.5 F 55 18 156/80 96
07/07/24 12:02 07/07/24 12:30 07/07/24 12:02 07/07/24 12:02 07/07/24 12:02
Intake and Output
07/06/24 07/07/24 07/08/24
06:59 06:59 06:59
Intake Total 480 / 480 1500 / 1500
Output Total 1150 / 1150 1530 / 1530 800 / 800
Balance -670 / -670 -30 / -30 -800 / -800
Intake:
Oral fluids 480 / 480 1500 / 1500
Output:
Urine, Voided 1150 / 1150 1530 / 1530 800 / 800
Other:
Number of approximated MODERATE 1
amounts of urine
Laboratory Results
07/07/24 07:45
07/07/24 07:45
Physical Exam
-
General - well developed, well nourished, no acute distress
Chest - clear
Abdomen - soft, non-tender
Stimulator incision site c/d/i, no erythema, less tender
[2024-07-07 17:10] LABS: Glucose - Point of Care 124 mg/dl (70-99)
[2024-07-07] MEDS: FLOMAX PO (17:12)
[2024-07-07] MEDS: DULCOLAX 10 MG RECTAL (17:13)
[2024-07-07] MEDS: PRAVACHOL 40 MG PO (17:15)
[2024-07-07] MEDS: COLACE 100 MG PO (21:41)
[2024-07-07 22:16] LABS: Glucose - Point of Care 187 mg/dl (70-99)
[2024-07-08] VITALS (8 sets, daily range): BP systolic 102–153; BP diastolic 51–86; PULSE 51–100; BMI 32.9
[2024-07-08] MEDS: PERCOCET 5/325 1 TABLET PO ×2 (04:47→20:53)
[2024-07-08] MEDS: MIRALAX 17 GRAMS PO (07:50)
[2024-07-08] MEDS: FLORINEF 0.2 MG PO (07:50)
[2024-07-08] MEDS: KEFLEX 500 MG PO (07:50)
[2024-07-08] MEDS: NEURONTIN 300 MG PO ×4 (07:50→21:59)
[2024-07-08] MEDS: ProAmatine 5 MG PO ×3 (07:50→17:06)
[2024-07-08] MEDS: ELIQUIS 5 MG PO ×2 (07:51→19:42)
[2024-07-08] MEDS: COLACE 100 MG PO ×2 (07:51→19:41)
[2024-07-08] MEDS: NAMENDA 5 MG PO ×2 (07:51→19:42)
[2024-07-08] MEDS: FEOSOL 325 MG PO (07:51)
[2024-07-08 07:56] LABS: Glucose - Point of Care 135 mg/dl (70-99)
[2024-07-08] MEDS: NOVOLOG FLEXPEN-LOW RESISTANCE SC (07:56)
--- NOTE | 2024-07-08 09:08 | W.PN.HOSP.TC ---
Today's Communication/Plan
-
Continue current care
Assessment / Plan
Assessment / Plan
Gen-awake, alert, NAD
HEENT-NC, AT, anicteric, clear oral mm
Neck-supple
CV-reg, no M, +S1/S2
Lungs-clear B/L
Abd-soft, NT, ND
Ext-bilateral lower extremity edema with Eric wraps
Musculoskeletal-no cyanosis, clubbing
Skin-warm and dry, bilateral lower extremity hyperpigmentation
Neuro-grossly non-focal
Psych-calm, cooperative
Ambulatory dysfunction, fall -no evidence of fracture on imaging. Not orthostatic. Continue PT/OT.
Family concerned about weakness. Furosemide dose reduced back to his baseline per family request. Apparently daughter claims that the weakness came on after the dose of furosemide was increased prior to admission.
Overactive bladder/BPH -bladder stimulator off at family's request. Family states that the weakness worsened with use of the bladder stimulator. I spoke with Dr. Gomez of urology, he recommends outpatient follow-up. Unclear if stimulator is
currently on or off. Patient's home care chaplain to come in and scan the device to check.
Permanent atrial fibrillation -asymptomatic bradycardia possibly related to digoxin. Sinus pauses noted, all of them are less than 3 seconds. Nursing has been holding doses of digoxin due to bradycardia. Prior to digoxin use he had rapid atrial
fibrillation. Will therefore not discontinue digoxin. Recommend follow-up with cardiology. Continue Eliquis.
I did speak with cardiology (Dr. Celestin) and they recommended continuing digoxin on discharge without any changes.
TSH 0.3, recommend rechecking after discharge with PCP.
Essential hypertension -stable.
CAD - history of [place].
Chronic heart failure preserved EF - stable. Furosemide dose reduced to previous dose at family's request.
DM2 without hyperglycemia -glucose 135 this morning. Hemoglobin A1c 5.9%. Was on metformin prior to admission. Use sliding scale insulin for now.
Chronic orthostatic hypotension -continue midodrine, fludrocortisone. Not orthostatic currently.
History of stroke with residual right foot drop
GERD
Hyperlipidemia depression/anxiety
Chronic lower extremity lymphedema -recommend follow-up with lymphedema clinic. On chronic suppressive cephalexin for prevention of cellulitis. Compression therapy with Eric wraps ordered. Recommend to continue after discharge. Discussed with
patient.
Chronic thrombocytopenia -stable. Recommend outpatient follow-up.
Obesity due to excess calories
Dementia
Full code
Dispo -stable for discharge to SNF. Case management aware.
Anticipated Discharge: 24 - 48 hours
Subjective/Interval History
-
Date of Service: July 08, 2024
Patient seen and examined. No complaints.
Objective Data
-
Vital Signs:
Vital Signs
Temp Pulse Resp BP Pulse Ox
97.5 F 58 15 124/78 96
07/08/24 07:22 07/08/24 07:50 07/08/24 07:22 07/08/24 07:50 07/08/24 07:22
I&O
07/07/24 07/08/24 07/09/24
06:59 06:59 07:59
Intake Total 1500 / 1500 480 / 480
Output Total 1530 / 1530 1850 / 1850
Balance -30 / -30 -1370 / -1370
Review of Systems
-
History Source: Patient
All other systems: Reviewed and negative
--- NOTE | 2024-07-08 09:52 | CM ---
CM reviewed chart, placed return call to patients daughterClair. Daughter had previously requested additional referrals sent to [place], referrals placed in [facility]. Daughter also requesting referrals to [facility], sent to [facility]
and [facility]. Will need auth once SNF found. CM will continue to follow for all discharge planning needs.
Plan; SNF once facility found, will need auth.
[2024-07-08 11:51] LABS: Glucose - Point of Care 170 mg/dl (70-99)
[2024-07-08] MEDS: NOVOLOG FLEXPEN-LOW RESISTANCE 1 UNITS SC ×2 (12:19→16:46)
[2024-07-08] MEDS: GLUCOPHAGE 500 MG PO (16:22)
[2024-07-08 16:42] LABS: Glucose - Point of Care 156 mg/dl (70-99)
[2024-07-08] MEDS: PRAVACHOL 40 MG PO (17:06)
[2024-07-08] MEDS: FLOMAX 0.4 MG PO (17:06)
[2024-07-08 21:05] LABS: Glucose - Point of Care 174 mg/dl (70-99)
[2024-07-09] VITALS (9 sets, daily range): BP systolic 115–155; BP diastolic 64–84; PULSE 49–100; BMI 33.3
[2024-07-09] MEDS: MIRALAX 17 GRAMS PO (07:19)
[2024-07-09] MEDS: NEURONTIN 300 MG PO ×4 (07:20→20:50)
[2024-07-09] MEDS: NAMENDA 5 MG PO ×2 (07:20→20:50)
[2024-07-09] MEDS: GLUCOPHAGE 500 MG PO ×2 (07:20→17:04)
[2024-07-09] MEDS: ProAmatine 5 MG PO ×3 (07:20→17:06)
[2024-07-09] MEDS: KEFLEX 500 MG PO (07:21)
[2024-07-09] MEDS: FEOSOL 325 MG PO (07:21)
[2024-07-09] MEDS: FLORINEF 0.2 MG PO (07:21)
[2024-07-09] MEDS: ELIQUIS 5 MG PO ×2 (07:21→20:50)
[2024-07-09] MEDS: COLACE 100 MG PO ×2 (07:21→20:50)
[2024-07-09] MEDS: NOVOLOG FLEXPEN-LOW RESISTANCE SC ×2 (07:28→17:01)
[2024-07-09 07:29] LABS: Glucose - Point of Care 130 mg/dl (70-99)
[2024-07-09 11:26] LABS: Glucose - Point of Care 151 mg/dl (70-99)
[2024-07-09] MEDS: NOVOLOG FLEXPEN-LOW RESISTANCE 1 UNITS SC (11:49)
--- NOTE | 2024-07-09 13:11 | W.PN.HOSP.TC ---
Today's Communication/Plan
-
Discharge planning
Assessment / Plan
Assessment / Plan
Gen-awake, alert, NAD
HEENT-NC, AT, anicteric, clear oral mm
Neck-supple
CV-reg, no M, +S1/S2
Lungs-clear B/L
Abd-soft, NT, ND
Ext-bilateral lower extremity edema with Eric wraps
Musculoskeletal-no cyanosis, clubbing
Skin-warm and dry, bilateral lower extremity hyperpigmentation
Neuro-grossly non-focal
Psych-calm, cooperative
Ambulatory dysfunction, fall -no evidence of fracture on imaging. Not orthostatic. Continue PT/OT.
Family concerned about weakness. Weakness appears to have resolved. Perhaps he was hypotensive on the higher dose of furosemide prior to admission. Furosemide dose reduced back to his baseline per family request.
Overactive bladder/BPH -bladder stimulator checked yesterday and it apparently has been on. Was never turned off. Plan to leave it on and follow-up as outpatient with urology.
Permanent atrial fibrillation -asymptomatic bradycardia possibly related to digoxin. Sinus pauses noted, all of them are less than 3 seconds. Nursing has been holding doses of digoxin due to bradycardia. Hold parameters for digoxin discontinued.
Prior to digoxin use he had rapid atrial fibrillation. Will therefore not discontinue digoxin. Recommend follow-up with cardiology. Continue Eliquis.
I did speak with cardiology (Dr. Celestin) and they recommended continuing digoxin on discharge without any changes.
TSH 0.3, recommend rechecking after discharge with PCP.
Essential hypertension -stable.
CAD - history of [place].
Chronic heart failure preserved EF - stable. Furosemide dose reduced to previous dose at family's request.
DM2 without hyperglycemia -glucose 130 this morning. Hemoglobin A1c 5.9%. Was on metformin prior to admission. Use sliding scale insulin for now.
Chronic orthostatic hypotension -continue midodrine, fludrocortisone. Not orthostatic currently.
History of stroke with residual right foot drop
GERD
Hyperlipidemia depression/anxiety
Chronic lower extremity lymphedema -recommend follow-up with lymphedema clinic. On chronic suppressive cephalexin for prevention of cellulitis. Compression therapy with Eric wraps ordered. Recommend to continue after discharge. Discussed with
patient.
Chronic thrombocytopenia -stable. Recommend outpatient follow-up.
Obesity due to excess calories
Dementia
Full code
Dispo -stable for discharge to SNF. Case management aware.
Anticipated Discharge: Within 24 hours
Subjective/Interval History
-
Date of Service: July 09, 2024
Patient seen and examined. Mild achiness of right lower extremity.
Objective Data
-
Vital Signs:
Vital Signs
Temp Pulse Resp BP Pulse Ox
97.5 F 56 15 119/71 99
07/09/24 11:41 07/09/24 11:53 07/09/24 11:41 07/09/24 11:53 07/09/24 11:41
I&O
07/08/24 07/09/24 07/10/24
05:59 06:59 06:59
Intake Total 240 / 240
Output Total 1000 / 1000
Balance -760 / -760
Review of Systems
-
History Source: Patient
All other systems: Reviewed and negative
[2024-07-09] MEDS: PERCOCET 5/325 1 TABLET PO ×2 (15:25→21:33)
--- NOTE | 2024-07-09 15:56 | CM ---
CM reviewed chart, reviewed with PT, patient ambulating 90 feet x 2, may not get approved for SNF. Auth submitted to [facility], pending reference #[id number]. CM will continue to follow for all discharge planning needs.
Plan; [facility] SNF, auth pending vs home with [facility] if auth denied
[2024-07-09 16:51] LABS: Glucose - Point of Care 110 mg/dl (70-99)
[2024-07-09] MEDS: PRAVACHOL 40 MG PO (17:04)
[2024-07-09] MEDS: FLOMAX PO (17:07)
[2024-07-09 21:16] LABS: Glucose - Point of Care 159 mg/dl (70-99)
[2024-07-10] MEDS: PERCOCET 5/325 1 TABLET PO ×2 (01:40→07:30)
[2024-07-10 05:06] VITALS: BMI 33.3
[2024-07-10 07:20] VITALS: BMI 33.3
[2024-07-10] MEDS: ProAmatine 5 MG PO ×2 (07:20→12:46)
[2024-07-10] MEDS: MIRALAX 17 GRAMS PO (07:20)
[2024-07-10] MEDS: FLORINEF 0.2 MG PO (07:20)
[2024-07-10] MEDS: NEURONTIN 300 MG PO ×2 (07:20→12:46)
[2024-07-10] MEDS: NAMENDA 5 MG PO (07:20)
[2024-07-10] MEDS: LASIX 20 MG PO (07:20)
[2024-07-10] MEDS: ELIQUIS 5 MG PO (07:20)
[2024-07-10] MEDS: GLUCOPHAGE 500 MG PO (07:20)
[2024-07-10] MEDS: KEFLEX 500 MG PO (07:22)
[2024-07-10] MEDS: FEOSOL 325 MG PO (07:23)
[2024-07-10] MEDS: COLACE 100 MG PO (07:24)
[2024-07-10 07:54] VITALS: BP 119/65
[2024-07-10 08:17] LABS: Glucose - Point of Care 233 mg/dl (70-99)
[2024-07-10 08:42] VITALS: BP 119/65; BP 125/70; PULSE 56; PULSE 63
[2024-07-10] MEDS: NOVOLOG FLEXPEN-LOW RESISTANCE 2 UNITS SC (08:45)
[2024-07-10 11:10] LABS: Glucose - Point of Care 183 mg/dl (70-99)
--- NOTE | 2024-07-10 12:29 | CM ---
Addendum entered by Mary Ramírez 07/10/24 14:42:
CM spoke with daughter, aware auth pending and may be denied, would like patient to return home with [facility] services. TT to Hospitalist with update. Daughter inquiring about a knee brace, per PT, patient has a knee immobilizer. Daughter reports
patients aid will provide transportation home.
Plan; home with [facility]
Original Note:
CM reviewed chart, call placed to [facility] to check auth status- reference number [id number], informed waiting to receive clinicals. CM explained clinicals were faxed yesterday, confirmed fax number, will re-fax. CM will call back to
check status of auth, will update patients daughter/Clair KOROMA, on auth status. CM will continue to follow for all discharge planning needs.
Plan; [facility] pending auth, if denied home with [facility] services ([facility])
[2024-07-10] MEDS: NOVOLOG FLEXPEN-LOW RESISTANCE 1 UNITS SC (12:45)
--- NOTE | 2024-07-10 14:51 | W.PN.HOSP.TC ---
Addendum entered and electronically signed by Arnold Joiner MD 07/10/24 17:19:
[id number]
Original Note:
Today's Communication/Plan
-
reduce lasix back to prior dose -20 mg MWF
f/u bmp, cbc outpt
Assessment / Plan
Assessment / Plan
Gen-awake, alert, NAD
HEENT-NC, AT, anicteric, clear oral mm
Neck-supple
CV-reg, no M, +S1/S2
Lungs-clear B/L
Abd-soft, NT, ND
Ext-bilateral lower extremity edema with Eric wraps
Musculoskeletal-no cyanosis, clubbing
Skin-warm and dry, bilateral lower extremity hyperpigmentation
Neuro-grossly non-focal
Psych-calm, cooperative
Ambulatory dysfunction, fall -no evidence of fracture on imaging. Not orthostatic. Continue PT/OT.
Family concerned about weakness. Weakness appears to have resolved. Perhaps he was hypotensive on the higher dose of furosemide prior to admission. Furosemide dose reduced back to his baseline per family request.
Overactive bladder/BPH -bladder stimulator checked yesterday and it apparently has been on. Was never turned off. Plan to leave it on and follow-up as outpatient with urology.
Permanent atrial fibrillation -asymptomatic bradycardia possibly related to digoxin. Sinus pauses noted, all of them are less than 3 seconds. Nursing has been holding doses of digoxin due to bradycardia. Hold parameters for digoxin discontinued.
Prior to digoxin use he had rapid atrial fibrillation. Will therefore not discontinue digoxin. Recommend follow-up with cardiology. Continue Eliquis.
I did speak with cardiology (Dr. Celestin) and they recommended continuing digoxin on discharge without any changes. Follow-up cardiology outpatient
TSH 0.3, recommend rechecking after discharge with PCP.
Essential hypertension -stable.
CAD - history of [place].
Chronic heart failure preserved EF - stable. Furosemide dose reduced to previous dose at family's request.
DM2 without hyperglycemia Hemoglobin A1c 5.9%. Was on metformin prior to admission. Use sliding scale insulin for now.
Chronic orthostatic hypotension -continue midodrine, fludrocortisone. Not orthostatic currently.
History of stroke with residual right foot drop
GERD
Hyperlipidemia depression/anxiety
Chronic lower extremity lymphedema -recommend follow-up with lymphedema clinic. On chronic suppressive cephalexin for prevention of cellulitis. Compression therapy with Eric wraps ordered. Recommend to continue after discharge. Discussed with
patient.
Chronic thrombocytopenia -stable. Recommend outpatient follow-up.
Obesity due to excess calories
Dementia
Full code
More than 30 minutes spent in discharge including
Final examination of the patient
Summarizing hospital stay
Instructions for continuing care to all relevant caregivers
Preparation of discharge records, prescriptions, and referral forms
Total time spent (36 in minutes):
Anticipated Discharge: Today
Subjective/Interval History
-
Date of Service: July 10, 2024
No acute events, stable overnight
Objective Data
-
Vital Signs:
Vital Signs
Temp Pulse Resp BP Pulse Ox
98.7 F 58 18 119/65 95
07/10/24 07:54 07/10/24 12:46 07/10/24 07:54 07/10/24 07:54 07/10/24 07:54
I&O
07/09/24 07/10/24 07/11/24
06:59 06:59 06:59
Intake Total 1330 / 1330
Output Total 2275 / 2275
Balance -945 / -945
Review of Systems
-
History Source: Patient
All other systems: Not reviewed unless documented
Physical Exam
-
General: Well Developed, Well Nourished, No Apparent Distress, Comfortable and Conversant
HEENT: Normocephalic and Atraumatic
Respiratory: Clear to Auscultation
GI: Soft, Nontender, Nondistended and Normal Bowel Sounds
Musculoskeletal: No Clubbing, No Cyanosis, Edema, Right Lower Extrem and Edema, Left Lower Extrem
Neuro: AO x 3
Psych: Calm
Data Reviewed
-
Labs: Labs Reviewed by me and Discussed with Physician
Old Records: Reviewed
--- NOTE | 2024-07-10 14:53 | W.DS.TRANS ---
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
-
Discharge Instructions:
Discharge Diagnosis/Procedures Ambulatory dysfunction, chronic heart failure,
overactive bladder, atrial fibrillation
Diet Diabetic, Carb Controlled
Activity As tolerated,With assistance
Driving Restrictions No driving
Bathing Restrictions None
Blood Work Thyroid Panel - TSH 0.3, recommend rechecking
after discharge with PCP.
cbc and bmp in 3-5 days
Instructions:
Stand-Alone Forms:
Changes to Home Medications: Yes
Discharge Medications:
DC Medications w/original date entered in [employer]
apixaban 5 mg tablet (Eliquis) 5 mg PO BID Blood Clot Prevention/Tx #60 tabs 05/21/23
midodrine 5 mg tablet 5 mg PO TID hypotension 04/15/24
cholecalciferol (vitamin D3) 25 mcg (1,000 unit) tablet (Vitamin D3) 25 mcg PO QPM Supplement 04/22/24
fludrocortisone 0.1 mg tablet 0.2 mg PO DAILY 04/22/24
pravastatin 40 mg tablet 40 mg PO QPM High Cholesterol 04/22/24
vibegron 75 mg tablet (Gemtesa) 75 mg PO DAILY Urinary Issue 04/22/24
digoxin 125 mcg (0.125 mg) tablet 125 mcg PO NOON 06/07/24
ferrous sulfate 325 mg (65 mg iron) tablet 325 mg PO DAILY 06/07/24
gabapentin 300 mg capsule 300 mg PO QID 06/07/24
tamsulosin 0.4 mg capsule (Flomax) 0.4 mg PO QPM 06/07/24
cephalexin 500 mg capsule 500 mg PO DAILY 06/30/24
metformin 500 mg tablet 500 mg PO BID 06/30/24
memantine 5 mg tablet 5 mg PO 07/04/24
polyethylene glycol 3350 17 gram oral powder packet (Miralax) 17 g PO DAILY 07/04/24
acetaminophen 325 mg tablet 650 mg (2 x 325 mg) PO Q6HPRN PRN mild pain/ fever>100.5F #0 tabs 07/06/24
furosemide 20 mg tablet 20 mg PO MoWeFr@0800 #0 tabs 07/06/24
Home Medication Changes
furosemide 20 mg tablet 20 mg PO MoWeFr@0800 #0 tabs 07/06/24
Pending Results: No
[2024-07-10 15:09] VITALS: BP 134/70
== END 2024-07-10 16:24 | disposition home health service (06) ==
LOC: 4 WEST ACU 19:58
PROVIDERS: Clinical Nurse Specialist Family Health; Nurse Practitioner; ADMITTING PHYSICIAN Internal Medicine; ATTENDING PHYSICIAN Internal Medicine; EMERGENCY PHYSICIAN Emergency Medicine; FAMILY PHYSICIAN Family Medicine; OTHER PHYSICIAN Specialist
DX: R26.2 Difficulty in walking, not elsewhere classified (principal); M25.551 Pain in right hip; Z79.01 Long term (current) use of anticoagulants; N32.81 Overactive bladder; Z87.891 Personal history of nicotine dependence; I95.1 Orthostatic hypotension; M25.561 Pain in right knee; R53.1 Weakness; R11.2 Nausea with vomiting, unspecified; W19.XXXA Unspecified fall, initial encounter; Z87.440 Personal history of urinary (tract) infections; E11.41 Type 2 diabetes mellitus with diabetic mononeuropathy; G57.93 Unspecified mononeuropathy of bilateral lower limbs; I11.0 Hypertensive heart disease with heart failure; I48.21 Permanent atrial fibrillation; I25.10 Atherosclerotic heart disease of native coronary artery without angina pectoris; Z95.5 Presence of coronary angioplasty implant and graft; D50.9 Iron deficiency anemia, unspecified; D69.6 Thrombocytopenia, unspecified; F03.94 Unspecified dementia, unspecified severity, with anxiety; F03.93 Unspecified dementia, unspecified severity, with mood disturbance; I69.351 Hemiplegia and hemiparesis following cerebral infarction affecting right dominant side; M21.371 Foot drop, right foot; K21.9 Gastro-esophageal reflux disease without esophagitis; Z79.899 Other long term (current) drug therapy; E55.9 Vitamin D deficiency, unspecified; E66.09 Other obesity due to excess calories; I89.0 Lymphedema, not elsewhere classified; I25.2 Old myocardial infarction; L81.9 Disorder of pigmentation, unspecified; N40.1 Benign prostatic hyperplasia with lower urinary tract symptoms; R35.1 Nocturia; F32.A Depression, unspecified; I50.32 Chronic diastolic (congestive) heart failure; Z91.199 Patient's noncompliance with other medical treatment and regimen due to unspecified reason
CPT/HCPCS: 73502; 73564; 80053; 81003; 81015; 82550; 82962; 83036; 84443; 85025; 87086; 94660; 97116; 97163; 97167; 97530; 97535; 99285; G0378

== ENCOUNTER 2024-07-25 01:53 | Inpatient (IN) | payer MEDICARE, SELFPAY ==
[2024-07-24 19:06] VITALS: BMI 31.0
[2024-07-24 19:13] VITALS: BP 152/67
[2024-07-24 19:36] LABS: % Basophils 0.2 % (0-2); % Eosinophils 1.3 % (0-6); % Immature Granulocytes 0.4 % (0-0.5); % Monocytes 14.2 % (1.7-9.3); % Neutrophils 75.9 % (42.2-75.2); Absolute Eosinophils 0.1 10^3/uL (0-0.7); Absolute Lymphocytes 0.4 10^3/uL (1.2-3.4); Absolute Monocytes 0.8 10^3/uL (0.1-0.6); Absolute Neutrophils 4.1 10^3/uL (1.4-6.5); Hematocrit 35.3 % (39.0-52.0); Hemoglobin 11.5 g/dL (13.0-18.0); Mean Corp Hgb Conc. 32.6 g/dL (33.0-37.0); Mean Corpuscular Hgb 31.3 pg (27.0-31.0); Mean Corpuscular Volume 95.9 fL (80.0-94.0); Nucleated Red Blood Cells % 0 % (-); Red Blood Cell Count 3.68 10^6/uL (4.70-6.10); Red Cell Dist. Width 15.9 % (11.5-14.5); White Blood Cell Count 5.4 10^3/uL (4.8-10.8)
[2024-07-24 19:44] LABS: ALT (SGPT) 19 U/L (0-50); AST (SGOT) 22 U/L (17-59); Albumin 4.1 g/dl (3.5-5.0); Alkaline Phosphatase 119 U/L (38-126); Blood Urea Nitrogen 22 mg/dl (9-20); Calcium 9.8 mg/dl (8.4-10.2); Carbon Dioxide 28 mmol/L (22-30); Chloride 103 mmol/L (98-107); Glucose 134 mg/dl (70-99); Potassium 4.1 mmol/L (3.5-5.1); Sodium 141 mmol/L (135-145); Total Bilirubin 0.6 mg/dl (0.2-1.3); Total Protein 6.3 g/dl (6.3-8.2); eGFR > 60.00
[2024-07-24 19:53] LABS: NT-proBNP 5310 pg/ml
[2024-07-24 19:54] LABS: Mean Platelet Volume 9.7 fL (7.4-10.4); Platelet Count 98 10^3/uL (130-400)
[2024-07-24 21:03] VITALS: BP 140/63
--- NOTE | 2024-07-24 21:20 | ED.GENMED ---
History of Present Illness
<Merary Villalta PA-C - Last Filed: 07/25/24 00:40>
General
Chief Complaint: Breathing Problem
Source: patient and urgent care physician assistant
Exam Limitations: none
Time Seen by Provider: 07/24/24 20:49
Nursing documentation reviewed up to this point in time: agreed with
History of Present Illness
History of Present Illness:
Patient is a 79-year-old male with history atrial fibrillation on Eliquis, CHF, CAD, hypertension, hyperlipidemia, diabetes presenting to the emergency department due to shortness of breath. Patient states starting yesterday he has been
increasingly short of breath intermittently throughout the day. There has been no clear exertional or positional component to symptoms. Patient denies any associated chest pain.
Patient also notes worsening swelling in his bilateral lower extremities. He is currently taking Keflex daily for a year to treat cellulitis of his right leg. He states that his right leg seemed warm to the touch as well as more red and swollen.
He also states that his left leg is more red and swollen than his baseline.
Patient denies any recent fever or cough. No back pain. No abdominal pain.
Past History
<Merary Villalta PA-C - Last Filed: 07/25/24 00:40>
Past History
ED Past Medical History: Arrthythmia (Atrial fibrillation), CAD, CHF, CVA (with right sided weakness), GERD, HTN, Hypercholesterolemia, NIDDM, [place], Psychiatric (Anxiety, Depression) and Other (GI bleed, GI stent, Orthostatic hypotension, Iron
deficiency anemia, Neuropathy, Sleep apnea, UTI, )
ED Past Surgical History: Cardiac (stent), Cholecystectomy, Orthopedic (Bilateral hip replacements, Left rotator cuff surgery, Right knee replacement) and Other (Gastric bypass)
Patient has exhibited threatening behavior?: No
PSI?: No
Social History
Tobacco: Former smoker
Alcohol: None
Drug: None
Personal:
Living: with family
Employment: Not employed
Family History
Family History: Other (Reviewed and Noncontributory)
Review of Systems
<Merary Villalta PA-C - Last Filed: 07/25/24 00:40>
Review of Systems
Allergies reviewed?: Yes
All Other Systems: ROS reviewed and negative except as documented in HPI and ROS
Phy Exam
<Merary Villalta PA-C - Last Filed: 07/25/24 00:40>
Physical Exam
Physical Exam:
Vitals: Mild hypertension. Otherwise vital signs stable.
General: Patient is well appearing, no acute distress
Skin: Warm and dry. Erythema and warmth to bilateral lower extremities R> L
Head: Normocephalic, atraumatic
Eyes: Sclera nonicteric. EOMs intact. No nystagmus.
Throat: Protecting airway
Neck: Normal ROM, no cervical spine tenderness, no meningismus
Cardiac: Normal rate, irregularly irregular rhythm, no murmurs.
Pulm: Diminished breath sounds at bases. No wheezing.
Abdomen: Abdomen soft and nontender.
Extremities: 2+ pitting edema of right lower extremity with erythema and warmth. 1+ pitting edema of left lower extremity. Palpable DP pulses bilaterally
Neuro: AAOx3. Grossly intact.
Psychiatric: Normal affect.
Scores
<Merary Villalta PA-C - Last Filed: 07/25/24 00:40>
Heart Failure Risk
Heart Failure Risk Score: Yes
History of Stroke or TIA: No
History of intubation for respiratory distress: No
Heart rate on ED arrival >/= 110: No
SaO2 <90% on arrival on room air: No
HR >/=110 during 3min walk test (or too ill to perform test): No
ECG has acute ischemic changes: No
Urea >/=12mmol/L (BUN 33.6mg/dL): No
Serum CO2>/=35mmol/L: No
Troponin I or T elevated to [place] Level (0.4mg/dL): No
NT-proBNP >/=5,000ng/L (5,000pg/ml): Yes
HF Risk Score: 1
Admission Status: MEDIUM RISK 5.1% Consider observation or discharge to home with homecare & f/u visit to PCP/[facility] [employer] [facility], or SNF for treatment
Course
<Merary Villalta PA-C - Last Filed: 07/25/24 00:40>
Orders/Labs/Results
Orders:
Orders
07/24/24 19:17
Electrocardiogram (*1) Urgent
Reason for Study: Shortness of Breath
EKG- Treatment ONCE
07/24/24 19:23
Complete Blood Count/With Diff Urgent
Comprehensive Metabolic Panel Urgent
NT-proBNP Urgent
07/24/24 21:14
US Legs, Bilateral [US Periph Venous LOWER Ext Franc] Urgent
Comment:
Reason For Exam: b/l lower extremity swelling
07/24/24 21:15
CR Chest - 2 Views Urgent
Comment:
Reason For Exam: SOB
07/24/24 21:32
Troponin I Urgent
07/24/24 22:17
D-Dimer Urgent
07/24/24 22:45
CT Chest PE Study Urgent
Comment:
Reason For Exam: shortness of breath, elevated dimer
Abnormal Lab Results
07/24/24 07/24/24
19:23 22:17
RBC 3.68 L 10^6/uL
(4.70-6.10)
Hgb 11.5 L g/dL
(13.0-18.0)
Hct 35.3 L %
(39.0-52.0)
MCV 95.9 H fL
(80.0-94.0)
MCH 31.3 H pg
(27.0-31.0)
MCHC 32.6 L g/dL
(33.0-37.0)
RDW 15.9 H %
(11.5-14.5)
Plt Count 98 L 10^3/uL
(130-400)
Absolute Lymphs (auto) 0.4 L 10^3/uL
(1.2-3.4)
Absolute Monos (auto) 0.8 H 10^3/uL
(0.1-0.6)
Neutrophils % 75.9 H %
(42.2-75.2)
Lymphocytes % 8.0 L %
(20.5-51.1)
Monocytes % 14.2 H %
(1.7-9.3)
D-Dimer 1.07 H ug/mlFEU
(0.00-0.50)
BUN 22 H mg/dl
(9-20)
Glucose 134 H mg/dl
(70-99)
07/24/24 19:23
07/24/24 19:23
Vital Signs
Initial and Last Documented VS:
Initial Vital Signs
Temp Pulse Resp BP Pulse Ox
99 F 61 18 152/67 98
07/24/24 19:13 07/24/24 19:13 07/24/24 19:13 07/24/24 19:13 07/24/24 19:13
Last Documented Vital Signs
Temp Pulse Resp BP Pulse Ox
99 F 67 20 140/63 97
07/24/24 19:13 07/24/24 22:30 07/24/24 22:30 07/24/24 21:03 07/24/24 22:30
<Ashlee Torres DO - Last Filed: 07/24/24 23:53>
Orders/Labs/Results
Orders:
Orders
07/24/24 19:17
Electrocardiogram (*1) Urgent
Reason for Study: Shortness of Breath
EKG- Treatment ONCE
07/24/24 19:23
Complete Blood Count/With Diff Urgent
Comprehensive Metabolic Panel Urgent
NT-proBNP Urgent
07/24/24 21:14
US Legs, Bilateral [US Periph Venous LOWER Ext Franc] Urgent
Comment:
Reason For Exam: b/l lower extremity swelling
07/24/24 21:15
CR Chest - 2 Views Urgent
Comment:
Reason For Exam: SOB
07/24/24 21:32
Troponin I Urgent
07/24/24 22:17
D-Dimer Urgent
07/24/24 22:45
CT Chest PE Study Urgent
Comment:
Reason For Exam: shortness of breath, elevated dimer
Abnormal Lab Results
07/24/24 07/24/24
19:23 22:17
RBC 3.68 L 10^6/uL
(4.70-6.10)
Hgb 11.5 L g/dL
(13.0-18.0)
Hct 35.3 L %
(39.0-52.0)
MCV 95.9 H fL
(80.0-94.0)
MCH 31.3 H pg
(27.0-31.0)
MCHC 32.6 L g/dL
(33.0-37.0)
RDW 15.9 H %
(11.5-14.5)
Plt Count 98 L 10^3/uL
(130-400)
Absolute Lymphs (auto) 0.4 L 10^3/uL
(1.2-3.4)
Absolute Monos (auto) 0.8 H 10^3/uL
(0.1-0.6)
Neutrophils % 75.9 H %
(42.2-75.2)
Lymphocytes % 8.0 L %
(20.5-51.1)
Monocytes % 14.2 H %
(1.7-9.3)
D-Dimer 1.07 H ug/mlFEU
(0.00-0.50)
BUN 22 H mg/dl
(9-20)
Glucose 134 H mg/dl
(70-99)
07/24/24 19:23
07/24/24 19:23
Vital Signs
Initial and Last Documented VS:
Initial Vital Signs
Temp Pulse Resp BP Pulse Ox
99 F 61 18 152/67 98
07/24/24 19:13 07/24/24 19:13 07/24/24 19:13 07/24/24 19:13 07/24/24 19:13
Last Documented Vital Signs
Temp Pulse Resp BP Pulse Ox
99 F 67 20 140/63 97
07/24/24 19:13 07/24/24 22:30 07/24/24 22:30 07/24/24 21:03 07/24/24 22:30
<Merary Villalta PA-C - Last Filed: 07/25/24 00:40>
MDM/Problems Addressed
Differential Diagnosis Includes:
Not limited to: CHF exacerbation, pulmonary embolism, pneumonia, bronchitis, etc.
MDM/Problems Addressed:
79-year-old male presenting with shortness of breath and swelling of bilateral lower extremities over the past 2 days. Patient denies any chest pain, cough, fever. Currently being treated for cellulitis of right lower extremity on Keflex at home
although symptoms worsening. Hypertensive on arrival, otherwise stable vital signs. Physical exam as above. Patient well-appearing, in no apparent distress. Mildly diminished breath sounds at bilateral bases otherwise lungs clear. Heart with
irregularly irregular rhythm. He does have significant pitting edema bilateral lower extremities R>L with significant erythema and warmth. Palpable DP pulses bilaterally. Differential broad at this time although suspicions include possible CHF
exacerbation, pneumonia, acute coronary syndrome less likely. Given asymmetric edema of bilateral lower extremities�will check ultrasound to rule out DVT. Will check labs and EKG.
Update: Labs reviewed. Thrombocytopenia which appears a chronic for patient. Chemistry relatively unremarkable. Troponin of 0.017. proBNP was elevated at 5310. Fortunately bilateral ultrasounds of lower extremities negative for DVT. Given
elevation D-dimer�CTA chest which shows no PE or other acute findings. Phonically�suspect mild CHF exacerbation and cellulitis of lower extremities R>L. Feel hospital given worsening cellulitis despite outpatient antibiotics and symptomatic CHF
exacerbation. Will give IV Lasix and IV vancomycin in emergency department. Patient accepted to hospital service in stable condition for further management. Case seen with attending physician.
Chronic conditions affecting care:
Congestive heart failure, atrial fibrillation, CAD, hypertension
Acute Exacerbation and/or Progression of Chronic Illness:
Acute CHF exacerbation
<Merary Villalta PA-C - Last Filed: 07/25/24 00:40>
*Radiology
Radiology exam reviewed: preliminary read by ED provider and radiology read reviewed
*Pulse Oximetry
Patient hypoxic: no
*EKG
Interpreted by ED Provider?: Yes
EKG Intrepretation Date: 07/24/24
Interpretation: abnormal
Comparison EKG: no changes
Heart Rate: 54
Rate: bradycardiac
Rhythm: a-fib
[place]: normal axis
Interval: normal QT interval
QRS Pattern: normal QRS
Ischemia: no ischemia
*Wet Process Operator Interpretation
Rate: bradycardiac
Interpretation: abnormal
Heart Rate: 58
Rhythm: a-fib
*Critical Care Note
Total Time (30-74mins, 75-104mins- exclusive of procedures): Not Applicable
<Merary Villalta PA-C - Last Filed: 07/25/24 00:40>
Patient Management
Discussion with other providers: Hospitalist
Escalation/DeEscalation of care consider admission/obs:
Admit for IV antibiotics, diuresis and further management
ED Attending Note
<Merary Villalta PA-C - Last Filed: 07/25/24 00:40>
-
Portions of this chart may have been created with voice recognition software.� Occasional wrong word or��sound alike� substitutions may have occurred due to the inherent limitations of voice recognition software.
<Ashlee Torres DO - Last Filed: 07/24/24 23:53>
ED Attending Note
Patient seen and examined by attending physician: Yes
I performed the substantive portion of visit, reviewed & personally made and approve the management plan that is documented in note by myself or MINDY.: Yes
I performed a history and physical exam of patient and discussed management with resident, I reviewed resident's note and agree with documented findings and plan of care.: Yes
ED Attending Note:
79-year-old male with history of CHF and hypertension presenting for shortness of breath. Patient reports that symptoms. Additionally notes some lower extremity edema which has been chronic, with right lower extremity swelling and redness,
currently on Keflex. Patient denying chest pain. He denies fever or cough. Vital signs significant for mild hypertension.
On exam patient is resting comfortably, no acute respiratory distress. Lung exam is relatively benign, no increased work of breathing, no significant focal abnormal lung sounds. Patient however does have increased swelling to the right lower
extremity compared to the left, with circumferential erythema. Patient had workup completed by EP prior to my assessment. Chest x-ray shows concern for possible pulmonary edema, BNP is elevated. Clinically symptoms could be consistent with acute
on chronic CHF. Patient had DVT ultrasound, negative for DVT. Suspect underlying cellulitis. No leukocytosis. Patient had a D-dimer checked, positive, so pending CT chest imaging. Likely plan for inpatient admission for acute on chronic CHF, as
well as cellulitis, not responsive to oral antibiotics
Discharge Plan
Departure
Patient Disposition: Admit
Date of Disposition: 07/25/24
Time of Disposition: 00:14
Presentation/result/management discussed w/ accepting /DO: Hospitalist
Discharge Problem:
CHF exacerbation, Cellulitis of right lower extremity
Prescriptions:
No Action
Eliquis 5 mg Tablet
5 mg PO BID Qty: 60 0RF
midodrine 5 mg tablet
5 mg PO TID
Rx Instructions:
Take 1 extra pill if feeling dizzy AND Systolic blood pressure < 100
pravastatin 40 mg Tablet
40 mg PO QPM
fludrocortisone 0.1 mg Tablet
0.2 mg PO DAILY
cholecalciferol (vitamin D3) [Vitamin D3] 25 mcg (1,000 unit) Tablet
25 mcg PO QPM
Gemtesa 75 mg Tablet
75 mg PO DAILY
tamsulosin [Flomax] 0.4 mg capsule
0.4 mg PO QPM
gabapentin 300 mg capsule
300 mg PO QID
digoxin 125 mcg (0.125 mg) tablet
125 mcg PO NOON
ferrous sulfate 325 mg (65 mg iron) Tablet
325 mg PO DAILY
metformin 500 mg Tablet
500 mg PO BID
cephalexin 500 mg Capsule
500 mg PO DAILY
polyethylene glycol 3350 [Miralax] 17 gram Powder In Packet
17 g PO DAILY
memantine 5 mg Tablet
5 mg PO
Patient Comments:
07/04/24: Patient is increasing from 5mg QD to 10mg BID, called daughter but did not have immediate access to current dosage.
acetaminophen 325 mg Tablet
650 mg PO Q6HPRN PRN (Reason: mild pain/ fever>100.5F) Qty: 0 0RF
furosemide 20 mg Tablet
20 mg PO MoWeFr@0800 Qty: 0 0RF
Referrals:
William Renner DO [Family Provider] -
Interventions
Interventions:
*Risk Screen - Suicide Last Done: 07/24/24 19:13
*General Assessment Last Done: 07/24/24 19:13
*Neglect/Abuse Screening Last Done: 07/24/24 19:13
*ED- Fall Risk Assessment Last Done: 07/25/24 00:35
*ED COVID-19 Vaccine History Last Done: 07/25/24 00:35
ED- Cardiac Assessment Last Done: 07/24/24 21:17
ED-Musculoskeletal Assessment Last Done: 07/25/24 00:24
ED- Pulmonary Assessment Last Done: 07/24/24 21:17
ED-Peripheral Vascular Assessment Last Done: 07/25/24 00:24
ED-Skin Assessment Last Done: 07/25/24 00:24
Discharge Date and Time
Print Language: [place]
[2024-07-24 22:01] LABS: Troponin I 0.017 ng/ml
[2024-07-24 22:35] LABS: D-Dimer 1.07 ug/mlFEU (0.00-0.50)
[2024-07-25] VITALS (22 sets, daily range): BP systolic 105–147; BP diastolic 47–92; PULSE 85; BMI 31.0
[2024-07-25] MEDS: LASIX 40 MG IV (01:00)
--- NOTE | 2024-07-25 01:17 | HPS.HSE ---
Family Physician
-
Family Physician: William Renner
Chief Complaint
-
SOB
History of Present Illness
Patient is an 79y M with PMH significant for A-Fib, CHF and chronic lymphedema who presents to ED complaining of SOB. Patient states that he has been more SOB over the past few days with symptoms steadily worsening during that time. He deneis
any chest pain, cough, fevers / chills, etc. He denies any pain. He denies any GI or complaints.
Patient was recently hospitalized 07/04 - 07/10 secondary to generalized weakness. During that stay his Lasix dose was changed from 40mg daily to 20mg -.
Medical History
Past Medical History
Past Medical History: Reports Other
Additional Past Medical History:
Chronic HFpEF
Atrial Fibrillation
CVA with Residual Right Foot Drop
Diabetes Mellitus, Type II
Chronic Thrombocytopenia
Senile Dementia
Orthostatic Hypotension
Obstructive Sleep Apnea
Obesity
Chronic Lymphedema
BPH / OAB
Past Surgical History: Reports Other
Additional Past Surgical History:
Cholecystectomy
Gastric Bypass
CBD Stent / EDGE procedure
Right TKA
Social History
Tobacco: Former Smoker (Quit smoking about 30 years ago. Approx 30 pack years total use.)
Alcohol: Occasional
Drug: None
Family History
Family History: Not pertinent
Allergies / Home Medications
Allergies reflects when Allergies were last updated in [employer].
Home Medications with original date entered in [employer]
Allergy/Medication List:
Allergies
Allergy/AdvReac Type Severity Reaction Status Date / Time
meperidine HCl [From Demerol] Allergy gets hyper Verified 06/30/24 12:11
ondansetron [From Zofran] Allergy N/V Verified 06/30/24 12:11
Home Medications
apixaban 5 mg tablet (Eliquis) 5 mg PO BID Blood Clot Prevention/Tx #60 tabs 05/21/23
midodrine 5 mg tablet 5 mg PO TID hypotension 04/15/24
cholecalciferol (vitamin D3) 25 mcg (1,000 unit) tablet (Vitamin D3) 25 mcg PO QPM Supplement 04/22/24
fludrocortisone 0.1 mg tablet 0.2 mg PO DAILY 04/22/24
pravastatin 40 mg tablet 40 mg PO QPM High Cholesterol 04/22/24
vibegron 75 mg tablet (Gemtesa) 75 mg PO DAILY Urinary Issue 04/22/24
digoxin 125 mcg (0.125 mg) tablet 125 mcg PO NOON 06/07/24
ferrous sulfate 325 mg (65 mg iron) tablet 325 mg PO DAILY 06/07/24
gabapentin 300 mg capsule 300 mg PO QID 06/07/24
tamsulosin 0.4 mg capsule (Flomax) 0.4 mg PO QPM 06/07/24
cephalexin 500 mg capsule 500 mg PO DAILY 06/30/24
metformin 500 mg tablet 500 mg PO BID 06/30/24
memantine 5 mg tablet 5 mg PO 07/04/24
polyethylene glycol 3350 17 gram oral powder packet (Miralax) 17 g PO DAILY 07/04/24
furosemide 20 mg tablet 20 mg PO MoWeFr@0800 #0 tabs 07/06/24
acetaminophen 325 mg tablet 500 mg PO Q6HPRN PRN mild pain/ fever>100.5F 07/25/24
oxycodone 5 mg tablet 5 mg PO Q6H PRN pain 07/25/24
Review of Systems
-
History Source: Patient
A 12 point ROS was completed and negative except as noted: Yes
Constitutional: Denies Fever or Chills
Respiratory: Reports Trouble Breathing; Denies Cough
Cardiac: Denies Chest Pain or Palpitations
Abdomen/GI: Denies Abdominal Pain, Nausea, Vomiting or Diarrhea
: Denies Dysuria or Frequency
Musculoskeletal: Reports Joint Pain (R knee pain.) and Edema
Neurological: Denies Dizzy or Headache
Psych: Denies Depression or Anxiety
Physical Exam
Vital Signs
Vital Signs
Temp Pulse Resp BP Pulse Ox
99 F 56 18 143/67 97
07/24/24 19:13 07/25/24 01:00 07/24/24 23:15 07/25/24 01:00 07/24/24 22:30
Physical Exam
General: Other (79y M in no acute distress.)
HEENT: Moist mucous membranes and PERRLA
Respiratory: Other (Decreased BS at bases - otherwise clear.)
Cardiac: S1/S2, Irregular Rhythm, Bradycardia and Murmur (II/ MICHAEL)
GI: Soft, Non Tender, Non Distended and Normal Bowel Sounds
Musculoskeletal: No Clubbing, No Cyanosis and Other (Chronic LE edema. Mild erythema b/l LEs - R > L. Dressing over R lateral leg wound without bleeding / strikethrough.)
Neuro: AO x 3
Laboratory Results
-
07/24/24 19:23
07/24/24 19:23
Laboratory Results
Total Bilirubin 0.6 mg/dl (0.2-1.3) 07/24/24 19:23
AST 22 U/L (17-59) 07/24/24 19:23
ALT 19 U/L (0-50) 07/24/24 19:23
Alkaline Phosphatase 119 U/L (38-126) 07/24/24 19:23
Troponin I 0.017 ng/ml 07/24/24 21:32
Impression/Plan
-
A/P: Patient is an 79y M with PMH significant for A-Fib, CHF and chronic lymphedema who presents to ED complaining of several days of worsening SOB.
Acute on Chronic HFpEF
- Admit for further evaluation and treatment.
- Suspect mild exacerbation of CHF given recent dose change in diuretic.
- IV Lasix dose given in the ED.
- Change to Lasix 20mg daily for now (this was his original dose per records from 04/2024 and 'middle ground' between 40mg daily and 20mg MWF dosing).
- Follow I/Os, daily weights, LE edema and dyspnea.
Chronic LE Lymphedema
Possible Cellulitis
- Chronic issue for this patient and difficult to rule out acute worsening / infection.
- On daily Keflex for suppression.
- Change to IV Ancef for now and resume usual suppression dose on discharge.
- Lymphedema therapies including compression, elevation, etc.
ASCVD
Benign Hypertension
- Stable. Denies CP / SOB / etc.
- Continue Eliquis.
Paroxysmal Atrial Fibrillation
- Heart rates into the 30s at times while resting. Baseline low rates in the 50s by review of data.
- Continue current medications for now including digoxin, Eliquis.
- Consider dose adjustment of Digoxin / alternate regimen if bradycardia worsens / persists.
- Certainly low heart rates could be contributing to recent complaints / issues with 'weakness'.
DM-II
- Stable. Hold metformin acutely.
- Follow glucose for now and cover with SSI as needed.
- Recent A1C was 5.9%.
BETSEY
- Stable. Continue nightly PAP therapy.
BPH / OAB
- Bladder scan protocol.
- s/p bladder stimulator implant June 2024.
- Would hold / discontinue tamsulosin given issues with weakness / orthostasis.
Orthostatic Hypotension
- Continue current midodrine / Florinef.
- Follow orthostatic signs.
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
Ambulatory Dysfunction secondary to the above
- Stable. Use boot / brace for ambulation.
- PT / OT evals.
Chronic Thrombocytopenia
- Stable / platelet values unchanged from prior.
- No evidence of active bleeding.
- Follow for any obvious bleeding or significant changes in cell counts.
Senile Dementia
- Patient awake and alert and interactive. Answers questions without obvious confusion.
- Monitor for any acute confusion / delirium during hospital stay.
DVT Prophylaxis: On Eliquis
Code Status: Full
--- NOTE | 2024-07-25 01:30 | EDRN ---
Dr. Guerrero was made aware of bradycardia (HR down to mid 30s, afib rhythm) while sleeping. BP stable and SpO2 >95%. Provider okay with these values. Pt denies any new s/s. monitor in place all patient needs met.
[2024-07-25] MEDS: VANCOCIN 540 MG IV (01:47)
[2024-07-25 05:16] LABS: Hematocrit 36.8 % (39.0-52.0); Hemoglobin 11.5 g/dL (13.0-18.0); Mean Corp Hgb Conc. 31.3 g/dL (33.0-37.0); Mean Corpuscular Hgb 31.2 pg (27.0-31.0); Mean Corpuscular Volume 99.7 fL (80.0-94.0); Mean Platelet Volume 10.1 fL (7.4-10.4); Platelet Count 102 10^3/uL (130-400); Red Blood Cell Count 3.69 10^6/uL (4.70-6.10); Red Cell Dist. Width 15.9 % (11.5-14.5); White Blood Cell Count 6.4 10^3/uL (4.8-10.8)
[2024-07-25 05:41] LABS: Blood Urea Nitrogen 22 mg/dl (9-20); Calcium 9.5 mg/dl (8.4-10.2); Carbon Dioxide 28 mmol/L (22-30); Chloride 106 mmol/L (98-107); Estimated Creatinine Clearance 93 ml/min; Glucose 130 mg/dl (70-99); Potassium 3.7 mmol/L (3.5-5.1); Sodium 144 mmol/L (135-145); eGFR > 60.00
--- NOTE | 2024-07-25 05:54 | PTCARENOTE ---
Addendum entered and electronically signed by MANDA Rodriguez 07/25/24 07:06:
Patient was seen and assessed, please see my progress note under provider section. Patient is new admission and assigned nursing staff already discussed the same issue with the admitting physician.
Original Note:
Provider made aware of pts HR sitting in the 30s and dropping down to 28 after placement of CPAP. Pt's HR does come up into the 40s-50s when woken up. BP has be stable. RN told that his is a known BL for the pt. RN was advised to keep the CPAP in
place and wake the patient if there is a concern for his HR. Provider did not come to see the pt or review telemetry at this time. HR alarm lower parameter is currently set to 35 (there have been greater than 59 critical alarms within the past hour).
--- NOTE | 2024-07-25 06:12 | W.PN.UPDATE ---
Update Note
Progress Note Update
-Reported by the nursing staff that the patient is bradycardia with hr in 30s while he is sleeping. Hr goes up 50s-60s when he is awake. Asymptomatic.
-Patient with PMH of BETSEY ----> CPAP ordered.
-Also noted on admission note and chart review that hr down in 30s while sleeping and his baseline in 50s.
-On assessment,
sleeping comfortable in bed with NAD. HR went up to 60s- 70s once I woke him up. Patient is alert and oriented, he denies chest pain or current SOB.
-Will continue telemetry and monitoring for changes/symptoms.
[2024-07-25 08:32] LABS: Glucose - Point of Care 135 mg/dl (70-99)
[2024-07-25] MEDS: ANCEF 5 IV ×3 (08:41→21:25)
[2024-07-25] MEDS: NEURONTIN 300 MG PO ×4 (08:42→21:25)
[2024-07-25] MEDS: MIRALAX 17 GRAMS PO (08:42)
[2024-07-25] MEDS: LASIX 20 MG PO (08:42)
[2024-07-25] MEDS: FLORINEF 0.2 MG PO (08:42)
[2024-07-25] MEDS: ProAmatine 5 MG PO ×2 (08:42→12:30)
[2024-07-25] MEDS: NAMENDA 5 MG PO (08:43)
[2024-07-25] MEDS: ELIQUIS 5 MG PO ×2 (08:43→21:25)
[2024-07-25] MEDS: NOVOLOG FLEXPEN-LOW RESISTANCE SC ×2 (08:43→17:11)
[2024-07-25] MEDS: SPIRIVA RESPIMAT 2.5 MCG INH (11:18)
[2024-07-25 12:10] LABS: Glucose - Point of Care 150 mg/dl (70-99)
[2024-07-25] MEDS: NOVOLOG FLEXPEN-LOW RESISTANCE 1 UNITS SC (12:28)
[2024-07-25] MEDS: LANOXIN 62.5 MCG PO (12:31)
--- NOTE | 2024-07-25 13:16 | TRANSFER ---
No delay report tubed to 4th floor. this Rn touched base with receiving RN Karina for a brief report. pt finishing lunch then will be transported to floor. plan of care continues to be followed.
--- NOTE | 2024-07-25 14:00 | W.PN.HOSP.TC ---
Today's Communication/Plan
-
cont abx
digoxin level
cont tele monitoring
Assessment / Plan
Assessment / Plan
Physical Exam
General: Other (79y M in no acute distress.)
HEENT: Moist mucous membranes and PERRLA
Respiratory: Other (Decreased BS at bases - otherwise clear.)
Cardiac: S1/S2, Irregular Rhythm, Bradycardia and Murmur (II/ MICHAEL)
GI: Soft, Non Tender, Non Distended and Normal Bowel Sounds
Musculoskeletal: No Clubbing, No Cyanosis and Other (Chronic LE edema. Mild erythema b/l LEs - R > L. Dressing over R lateral leg wound without bleeding / strikethrough.)
Neuro: AO x 3
A/P: Patient is an 79y M with PMH significant for A-Fib, CHF and chronic lymphedema who presents to ED complaining of several days of worsening SOB.
Acute on Chronic HFpEF, resolved
- Admit for further evaluation and treatment.
- Suspect mild exacerbation of CHF given recent dose change in diuretic.
- IV Lasix dose given in the ED.
- Change to Lasix 20mg daily for now (this was his original dose per records from 04/2024 and 'middle ground' between 40mg daily and 20mg MWF dosing).
- Follow I/Os, daily weights, LE edema and dyspnea.
Chronic LE Lymphedema
Possible Cellulitis
- Chronic issue for this patient and difficult to rule out acute worsening / infection.
- On daily Keflex for suppression.
- Change to IV Ancef for now and resume usual suppression dose on discharge.
- Lymphedema therapies including compression, elevation, etc.
ASCVD
Benign Hypertension
- Stable. Denies CP / SOB / etc.
- Continue Eliquis.
Paroxysmal Atrial Fibrillation
Bradycardia, while sleeping
- Heart rates into the 30s at times while resting. Baseline low rates in the 50s by review of data.
- Continue current medications for now including digoxin, Eliquis.
- Consider dose adjustment of Digoxin / alternate regimen if bradycardia worsens / persists.
- Certainly low heart rates could be contributing to recent complaints / issues with 'weakness'.
-F/u Digoxin levels
--may need to engage cards if persistent +/- elevated digoxin
#centrilobular emphysema
-may also be related to patients resp symptoms
-add spirva and albuerol prn
DM-II
- Stable. Hold metformin acutely.
- Follow glucose for now and cover with SSI as needed.
- Recent A1C was 5.9%.
BETSEY
- Stable. Continue nightly PAP therapy.
BPH / OAB
- Bladder scan protocol.
- s/p bladder stimulator implant June 2024.
- Would hold / discontinue tamsulosin given issues with weakness / orthostasis.
Orthostatic Hypotension
- Continue current midodrine / Florinef.
- Follow orthostatic signs.
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
Ambulatory Dysfunction secondary to the above
- Stable. Use boot / brace for ambulation.
- PT / OT evals.
#Multiple lung nodules
-measuring up to 8 mm in diameter. Nodules have increased in size compared to prior CT.
-8 mm right upper lobe nodule measured 5 mm on the prior study dated 09/24/2023.
-F/u pulmonary outpt
Chronic Thrombocytopenia
- Stable / platelet values unchanged from prior.
- No evidence of active bleeding.
- Follow for any obvious bleeding or significant changes in cell counts.
Senile Dementia
- Patient awake and alert and interactive. Answers questions without obvious confusion.
- Monitor for any acute confusion / delirium during hospital stay.
DVT Prophylaxis: On Eliquis
Code Status: Full
Anticipated Discharge: 24 - 48 hours
Subjective/Interval History
-
Date of Service: July 25, 2024
symptoms have improved as per patient
Objective Data
-
Labs:
Laboratory Results
07/25/24
04:57
WBC 6.4
Hgb 11.5 L
Hct 36.8 L
Plt Count 102 L
Sodium 144
Potassium 3.7
Chloride 106
Carbon Dioxide 28
BUN 22 H
Creatinine 0.8
Glucose 130 H
Calcium 9.5
Vital Signs:
Vital Signs
Temp Pulse Resp BP Pulse Ox
97.6 F 55 20 124/51 96
07/25/24 08:00 07/25/24 12:31 07/25/24 12:00 07/25/24 12:30 07/25/24 11:22
I&O
07/24/24 07/25/24 07/26/24
06:59 06:59 06:59
Intake Total 495 / 495
Output Total 865 / 865
Balance -370 / -370
Review of Systems
-
History Source: Patient
All other systems: Not reviewed unless documented
Data Reviewed
-
Diagnostic Radiology: Report Reviewed by me
CT Scan: Report Reviewed by me
Labs: Labs Reviewed by me
--- NOTE | 2024-07-25 14:39 | CON.CAR ---
Addendum entered and electronically signed by Elian Rodrigues MD 07/25/24 16:51:
I saw and examined the patient.
The ENVIRONMENTAL HEALTH AND SAFETY LEADER's note was reviewed and I agree with the note except for the NSVT comment.
Comment:
Heart failure, likely acute on chronic HFpEF:
- Agree with IV diuresis.
- Will check co-pay for SGLT2-I
- May add MRA (spironolactone)
- Adjust other GDMT as able
AFib
- Continue Eliquis
- Stop dig for slow AFib
Bradycardia
- In November 2023 Holter showed 100% Afib with Av rate 66 bpm
- Recent TSH low
- Stop digoxin
- Monitor
WCT looks most like AIVR or perhaps aberrated AFib, not narrower than bishop paiute
Original Note:
Consultation
Consultation Request
Date/Time Consultation Requested: 07/25/2024 14:15
Date/Time Consultation Performed: 07/25/2024 14:50
Requesting Provider: Dr. Joiner
Performing Provider: MANDA Arana for Dr. Rodrigues
Reason for Consultation: Bradycardia
Medical History
-
Chief Complaint: dizziness
History of Present Illness:
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
presented to the emergency department chief complaint of shortness of breath. He reports his shortness of breath has been ongoing for a few days prior to arrival. Prior to his most recent hospitalization he was on 20 mg of furosemide
Wednesday/Wednesday/Wednesday. He did not feel he had any increase in urinary output with that dose. Cardiology was consulted for heart failure management and for bradycardia on telemetry. He denies symptoms of dizziness and syncope/presyncope. He is
chest pain-free. He is not short of breath at present
Past Medical History
Past Medical History: Arrhythmias (Persistent atrial fibrillation), CAD, CHF, COPD, CVA, HTN, Hypercholesterolemia, NIDDM and Other (Orthostatic hypotension, thrombocytopenia)
Past Surgical History: Cholecystectomy and Orthopedic
Social History
Tobacco: Former Smoker
Personal:
Living: With Family
Employment: Retired
Family History
Family History: Reviewed & Not Pertinent
Allergies / Home Medications
Allergy/AdvReac Type Severity Reaction Status Date / Time
meperidine HCl [From Demerol] Allergy gets hyper Verified 06/30/24 12:11
ondansetron [From Zofran] Allergy N/V Verified 06/30/24 12:11
�Medication �Instructions �Recorded �Confirmed �Type
apixaban 5 mg tablet (Eliquis) 5 mg PO BID Blood Clot 05/21/23 07/25/24 Rx
Prevention/Tx #60 tabs
midodrine 5 mg tablet 5 mg PO DAILYPRN PRN BP<140 04/15/24 07/25/24 History
cholecalciferol (vitamin D3) 25 25 mcg PO QPM Supplement 04/22/24 07/25/24 History
mcg (1,000 unit) tablet (Vitamin
D3)
fludrocortisone 0.1 mg tablet 0.2 mg PO DAILY 04/22/24 07/25/24 History
pravastatin 40 mg tablet 40 mg PO QPM High Cholesterol 04/22/24 07/25/24 History
vibegron 75 mg tablet (Gemtesa) 75 mg PO DAILY Urinary Issue 04/22/24 07/25/24 History
digoxin 125 mcg (0.125 mg) tablet 125 mcg PO NOON 06/07/24 07/25/24 History
ferrous sulfate 325 mg (65 mg 325 mg PO DAILY 06/07/24 07/25/24 History
iron) tablet
gabapentin 300 mg capsule 300 mg PO QID 06/07/24 07/25/24 History
tamsulosin 0.4 mg capsule (Flomax) 0.4 mg PO QPM 06/07/24 07/25/24 History
cephalexin 500 mg capsule 500 mg PO DAILY 06/30/24 07/25/24 History
metformin 500 mg tablet 500 mg PO BID 06/30/24 07/25/24 History
furosemide 20 mg tablet 20 mg PO MOWEFR 07/25/24 07/25/24 History
tramadol 50 mg tablet 50 mg PO BIDPRN PRN moderate pain 07/25/24 07/25/24 History
Review of Systems
-
History Source: Patient
All other systems: Negative unless noted
Constitutional: Fatigue
Neurological: Weakness
Physical Exam
Vital Signs
Temp Pulse Resp BP Pulse Ox
98.4 F 59 18 147/75 95
07/25/24 14:09 07/25/24 14:09 07/25/24 14:09 07/25/24 14:09 07/25/24 14:09
Lab Results
07/25/24 04:57
07/25/24 04:57
Troponin I 0.017 ng/ml 07/24/24 21:32
Lrq-A-Bgjakbnavvw Pept 5310 pg/ml 07/24/24 19:23
Physical Exam
General: Well Developed, Well Nourished, No Apparent Distress and Comfortable
HEENT: Normocephalic, Anicteric and Moist Mucous Membranes
Respiratory: Clear and Non Labored Respirations
Cardiac: S1/S2 and Murmur (II/)
Breast: Deferred by me
GI: Soft, Non Tender, Non Distended and Normal Bowel Sounds
Rectal: Deferred by Provider
Genito-urinary: No Costovertebral Tender
Musculoskeletal: No Clubbing, No Cyanosis and Edema
Skin: Warm and Dry
Neuro: AO x 3
Hematologic/Lymphatic: No Lymphadenopathy
Psych: Calm
Impression / Plan
-
I/P: 79M with persistent atrial fibrillation (on digoxin and apixaban) CAD (PCI 1999), hypertension, dyslipidemia, DM, CVA 2019, COPD, HFpEF, and orthostatic hypotension who presented to the emergency department chief complaint of shortness of
breath
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 Serra
HFpEF, acute on chronic
-He was diuresed with intravenous furosemide in the ER
-His furosemide 40 mg Wednesday/Wednesday/Wednesday was decreased during his last hospitalization to 20mg and he presents back 14 days later with heart failure
-Furosemide 40 mg daily ordered
-Heart failure education
NSVT
-Appears to be NSVT as the ventricular ectopy QRS is more narrow than bishop paiute QRS
-No beta-alia due to bradycardia
-Follow telemetry
Paroxysmal atrial fibrillation
-Stop digoxin for slow HR. Dig levels have been low in the past.
-Oral Anticoagulation: Apixaban 5 mg twice daily, he may have missed some doses recently
-[id number]: score at least 8 (Heart failure, HTN, age 75 or more, Diabetes Mellitus, prior Stroke/TIA, Vascular disease)
Systolic murmur, TTE ordered
Cellulitis, acute on chronic, consider outpatient wound care
CAD, stable without chest pain, on apixaban (persistent atrial fibrillation) and pravastatin (LDL 61 last summer)
PAD, seen by Dr. White in the past, he would benefit from lymphedema therapy
Thrombocytopenia, chronic, stable, no acute bleeding
NIDDM
Prior CVA
Orthostatic hypotension, on midodrine
Dementia
SUBJECTIVE:
As above.
DATA:
Transthoracic echocardiogram, 05/2023:
Normal left ventricular size, wall thickness and systolic function.
Normal right ventricular size and function.
Mild mitral regurgitation.
Mild to moderate tricuspid regurgitation (TR).
Mildly Dilated aortic root at 4.1 cm.
Compared to the previous echo 11/17/21, TR has increased from trace. Otherwise
there is no significant change.
[2024-07-25 15:08] LABS: Digoxin 0.5 ng/ml (0.8-2.0)
[2024-07-25 17:03] LABS: Glucose - Point of Care 102 mg/dl (70-99)
[2024-07-25] MEDS: ProAmatine PO (17:10)
[2024-07-25] MEDS: PRAVACHOL 40 MG PO (17:15)
--- NOTE | 2024-07-25 18:17 | PTCARENOTE ---
1430 Received patient from ED AAOx3 with forgetfulness. Pt oriented to room. Pt in A fib with bradycardia on Tele. Cardiology E LEARNING SPECIALIST made aware an saw patient. Received a phone call from patients daughter. She requested an update and asked to review
patients medication list. RN reviewed all meds. Provided her with update on POC. Contacted hospitalist an made him aware that patient's daughter would like a phone call with update. Made patient comfortable. Cont to assess patient status.
[2024-07-25 21:37] LABS: Glucose - Point of Care 128 mg/dl (70-99)
[2024-07-25] MEDS: ROXICODONE 5 MG PO (21:38)
--- NOTE | 2024-07-25 22:30 | PTCARENOTE ---
Patient's print production associate alarming with an intermittent rapid narrow complex, HR 160s, with mostly bradycardia with HR in 30s-40s. Patient asymptomatic, denies chest pain or palpitations. EKG done showing afib with slow ventricular rate, no
VFIB/VTACH captured with multiple attempts. Other VSS. GSE MECHANIC made aware, orders for stat BMP, CBC, mag and troponin. Plan of care ongoing.
[2024-07-25 22:39] LABS: Hemoglobin 12.3 g/dL (13.0-18.0); Mean Corp Hgb Conc. 32.4 g/dL (33.0-37.0); Mean Corpuscular Hgb 31.5 pg (27.0-31.0); Mean Corpuscular Volume 97.4 fL (80.0-94.0); Mean Platelet Volume 10.2 fL (7.4-10.4); Platelet Count 113 10^3/uL (130-400); Red Cell Dist. Width 15.9 % (11.5-14.5); White Blood Cell Count 6.4 10^3/uL (4.8-10.8)
[2024-07-25 22:43] LABS: Blood Urea Nitrogen 24 mg/dl (9-20); Calcium 9.7 mg/dl (8.4-10.2); Carbon Dioxide 39 mmol/L (22-30); Chloride 99 mmol/L (98-107); Estimated Creatinine Clearance 82 ml/min; Glucose 141 mg/dl (70-99); Magnesium 1.7 mg/dl (1.6-2.3); Potassium 3.9 mmol/L (3.5-5.1); Sodium 142 mmol/L (135-145); eGFR > 60.00
[2024-07-25 22:54] LABS: Troponin I 0.018 ng/ml
[2024-07-26] VITALS (9 sets, daily range): BP systolic 130–156; BP diastolic 66–87; PULSE 56–81; O2SAT 96–97; BMI 28.4
--- NOTE | 2024-07-26 03:03 | W.PN.UPDATE ---
Update Note
Progress Note Update
RN reported burst of V/fib V-tach on the tele monitor, Patient without any complaints. EKG results noted, labs ordered and noted. hx of NSVT.
[2024-07-26] MEDS: ANCEF 5 IV ×3 (05:57→21:43)
[2024-07-26 07:24] LABS: Hematocrit 37.1 % (39.0-52.0); Mean Corp Hgb Conc. 32.3 g/dL (33.0-37.0); Mean Corpuscular Hgb 31.5 pg (27.0-31.0); Mean Corpuscular Volume 97.4 fL (80.0-94.0); Mean Platelet Volume 10.7 fL (7.4-10.4); Platelet Count 115 10^3/uL (130-400); Red Blood Cell Count 3.81 10^6/uL (4.70-6.10); Red Cell Dist. Width 15.8 % (11.5-14.5); White Blood Cell Count 6.7 10^3/uL (4.8-10.8)
[2024-07-26 08:00] LABS: ALT (SGPT) 13 U/L (0-50); AST (SGOT) 23 U/L (17-59); Albumin 3.7 g/dl (3.5-5.0); Alkaline Phosphatase 110 U/L (38-126); Blood Urea Nitrogen 22 mg/dl (9-20); Calcium 9.5 mg/dl (8.4-10.2); Carbon Dioxide 32 mmol/L (22-30); Chloride 102 mmol/L (98-107); Estimated Creatinine Clearance 73 ml/min; Glucose 139 mg/dl (70-99); Potassium 4.3 mmol/L (3.5-5.1); Sodium 142 mmol/L (135-145); Total Bilirubin 0.7 mg/dl (0.2-1.3); Total Protein 6.1 g/dl (6.3-8.2); eGFR > 60.00
[2024-07-26] MEDS: SPIRIVA RESPIMAT 2.5 MCG 2 PUFF INH (08:02)
--- NOTE | 2024-07-26 08:11 | W.PN.CD ---
Today's Communication / Plan
-
Asymptomatic bradycardia
Patient will remain Off Digoxin
No NSVT overnight. Rhythm reproted by nuris staff appears to be artifact.
Impression / Plan
-
I/P: 79M with persistent atrial fibrillation (on digoxin and apixaban) CAD (PCI 1999), hypertension, dyslipidemia, DM, CVA 2019, COPD, HFpEF, and orthostatic hypotension who presented to the emergency department chief complaint of shortness of
breath
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
HFpEF, acute on chronic
-He was diuresed with intravenous furosemide in the ER
-His furosemide 40 mg Wednesday/Wednesday/Wednesday was decreased during his last hospitalization to 20mg and he presents back 14 days later with heart failure
-Furosemide 40 mg daily ordered
-Heart failure education
Paroxysmal atrial fibrillation
-Stop digoxin for slow HR. Dig levels have been low in the past.
-Oral Anticoagulation: Apixaban 5 mg twice daily, he may have missed some doses recently
-[id number]: score at least 8 (Heart failure, HTN, age 75 or more, Diabetes Mellitus, prior Stroke/TIA, Vascular disease)
NSVT - reported by nursing staff was felt to be artifact
Systolic murmur, TTE ordered
Cellulitis, acute on chronic, consider outpatient wound care
CAD, stable without chest pain, on apixaban (persistent atrial fibrillation) and pravastatin (LDL 61 last summer)
PAD, seen by Dr. White in the past, he would benefit from lymphedema therapy
Thrombocytopenia, chronic, stable, no acute bleeding
NIDDM
Prior CVA
Orthostatic hypotension, on midodrine
Dementia
SUBJECTIVE:
As above.
DATA:
Transthoracic echocardiogram, 05/2023:
Normal left ventricular size, wall thickness and systolic function.
Normal right ventricular size and function.
Mild mitral regurgitation.
Mild to moderate tricuspid regurgitation (TR).
Mildly Dilated aortic root at 4.1 cm.
Compared to the previous echo 11/17/21, TR has increased from trace. Otherwise
there is no significant change.
Physical Exam
Vital Signs/Labs
Vital Signs
Temp Pulse Resp BP Pulse Ox
97.0 F 56 14 130/80 99
07/26/24 03:00 07/26/24 08:08 07/26/24 08:08 07/26/24 03:00 07/26/24 08:08
07/25/24 07/26/24 07/27/24
06:59 06:59 06:59
Actual Weight 106.5 kg 97.721 kg
07/26/24 06:25
07/26/24 06:25
Magnesium 1.7 mg/dl (1.6-2.3) 07/25/24 22:14
Digoxin 0.5 ng/ml (0.8-2.0) L 07/25/24 14:35
07/24/24
19:23
Ibp-P-Jbphkybqnul Pept 5310
LAB Results
07/24/24 07/25/24
21:32 22:14
Troponin I 0.017 0.018
Physical Exam
Constitutional: No acute distress
Cardiovascular: Rhythm/rate is irregular
Respiratory: Respiratory effort normal
GI: Soft
Neuro/Psych: Alert
Data Reviewed
-
Date of Service: July 26, 2024
Medical Decision Making: Reviewed Test Results
Medical Tests (PFT, Pathology etc): Report Reviewed by me
Labs: Labs Reviewed by me
[2024-07-26 08:16] LABS: Glucose - Point of Care 142 mg/dl (70-99)
[2024-07-26] MEDS: NOVOLOG FLEXPEN-LOW RESISTANCE SC ×3 (09:26→16:46)
[2024-07-26] MEDS: LASIX 40 MG PO (09:27)
[2024-07-26] MEDS: MIRALAX 17 GRAMS PO (09:28)
[2024-07-26] MEDS: FLORINEF 0.2 MG PO (09:28)
[2024-07-26] MEDS: NAMENDA 5 MG PO (09:28)
[2024-07-26] MEDS: ELIQUIS 5 MG PO ×2 (09:28→20:26)
[2024-07-26] MEDS: NEURONTIN 300 MG PO ×4 (09:28→21:42)
[2024-07-26] MEDS: ProAmatine PO ×3 (09:39→15:46)
[2024-07-26 12:03] LABS: Glucose - Point of Care 130 mg/dl (70-99)
--- NOTE | 2024-07-26 12:43 | W.PN.HOSP.TC ---
Today's Communication/Plan
-
tte
stop digoxin
lasix
abx
wound care
Assessment / Plan
Assessment / Plan
Physical Exam
General: Other (79y M in no acute distress.)
HEENT: Moist mucous membranes and PERRLA
Respiratory: Other (Decreased BS at bases - otherwise clear.)
Cardiac: S1/S2, Irregular Rhythm, Bradycardia and Murmur (II/ MICHAEL)
GI: Soft, Non Tender, Non Distended and Normal Bowel Sounds
Musculoskeletal: No Clubbing, No Cyanosis and Other (Chronic LE edema. Mild erythema b/l LEs - R > L. Dressing over R lateral leg wound without bleeding / strikethrough.)
Neuro: AO x 3
A/P: Patient is an 79y M with PMH significant for A-Fib, CHF and chronic lymphedema who presents to ED complaining of several days of worsening SOB.
Acute on Chronic HFpEF, resolved
- Admit for further evaluation and treatment.
- Suspect mild exacerbation of CHF given recent dose change in diuretic.
- IV Lasix dose given in the ED.
- Change to Lasix 20mg daily for now (this was his original dose per records from 04/2024 and 'middle ground' between 40mg daily and 20mg MWF dosing).
- Follow I/Os, daily weights, LE edema and dyspnea.
Chronic LE Lymphedema
Possible Cellulitis
- Chronic issue for this patient and difficult to rule out acute worsening / infection.
- On daily Keflex for suppression.
- Change to IV Ancef for now and resume usual suppression dose on discharge.
- Lymphedema therapies including compression, elevation, etc.
ASCVD
Benign Hypertension
- Stable. Denies CP / SOB / etc.
- Continue Eliquis.
Paroxysmal Atrial Fibrillation
Bradycardia, while sleeping, improving
- Heart rates into the 30s at times while resting. Baseline low rates in the 50s by review of data.
- Discontinue digoxin
� Cardiology consulted
� Eliquis.
- Certainly low heart rates could be contributing to recent complaints / issues with 'weakness'.
#Systolic murmur
� Echo ordered
#centrilobular emphysema
-may also be related to patients resp symptoms
-add spirva and albuerol prn
DM-II
- Stable. Hold metformin acutely.
- Follow glucose for now and cover with SSI as needed.
- Recent A1C was 5.9%.
BETSEY
- Stable. Continue nightly PAP therapy.
BPH / OAB
- Bladder scan protocol.
- s/p bladder stimulator implant June 2024.
- Would hold / discontinue tamsulosin given issues with weakness / orthostasis.
Orthostatic Hypotension
- Continue current midodrine / Florinef.
- Follow orthostatic signs.
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
Ambulatory Dysfunction secondary to the above
- Stable. Use boot / brace for ambulation.
- PT / OT evals.
#Multiple lung nodules
-measuring up to 8 mm in diameter. Nodules have increased in size compared to prior CT.
-8 mm right upper lobe nodule measured 5 mm on the prior study dated 09/24/2023.
-F/u pulmonary outpt
Chronic Thrombocytopenia
- Stable / platelet values unchanged from prior.
- No evidence of active bleeding.
- Follow for any obvious bleeding or significant changes in cell counts.
Senile Dementia
- Patient awake and alert and interactive. Answers questions without obvious confusion.
- Monitor for any acute confusion / delirium during hospital stay.
DVT Prophylaxis: On Eliquis
Code Status: Full
Anticipated Discharge: 24 - 48 hours
Subjective/Interval History
-
Date of Service: July 26, 2024
No acute events overnight
Objective Data
-
Labs:
Laboratory Results
07/26/24
06:25
WBC 6.7
Hgb 12.0 L
Hct 37.1 L
Plt Count 115 L
Sodium 142
Potassium 4.3
Chloride 102
Carbon Dioxide 32 H
BUN 22 H
Creatinine 0.9
Glucose 139 H
Calcium 9.5
Total Bilirubin 0.7
AST 23
ALT 13
Alkaline Phosphatase 110
Vital Signs:
Vital Signs
Temp Pulse Resp BP Pulse Ox
97.7 F 53 16 132/66 98
07/26/24 11:50 07/26/24 11:50 07/26/24 11:50 07/26/24 11:50 07/26/24 12:00
I&O
07/25/24 07/26/24 07/27/24
06:59 06:59 06:59
Intake Total 1455 / 1455
Output Total 1490 / 1490
Balance -35 / -35
Review of Systems
-
History Source: Patient
All other systems: Not reviewed unless documented
Data Reviewed
-
Diagnostic Radiology: Report Reviewed by me
CT Scan: Report Reviewed by me
Labs: Labs Reviewed by me
--- NOTE | 2024-07-26 12:57 | CM ---
Patient seen bedside, in chair.
Dx CHF
Patient stated he live with spouse in a 1 story home with 1 step to enter.
Ambulates with a RW.
Recent hospitalization and home with VN.
Daughter will transport.
Patient states he is independent with ADLs, and has a private caregiver.
PT eval completed- recommending home with home care.
Discussed via phone with daughter, she thinks he may need skilled rehab for wound care and respirtory issues.
CM told daughter if she wants referrals to skilled facilities we could place referrals. She will let CM know and requested call from MD.
PCP: Dr Renner
Pharmacy: [facility]
Plan: home with [facility] vs skilled rehab,, will need auth.
[2024-07-26 16:33] LABS: Glucose - Point of Care 143 mg/dl (70-99)
[2024-07-26] MEDS: PRAVACHOL 40 MG PO (17:27)
[2024-07-26 21:21] LABS: Glucose - Point of Care 173 mg/dl (70-99)
[2024-07-27] VITALS (7 sets, daily range): BP systolic 117–160; BP diastolic 68–91; PULSE 53–92; BMI 29.4
[2024-07-27] MEDS: ANCEF 5 IV ×3 (05:46→21:39)
[2024-07-27] MEDS: SPIRIVA RESPIMAT 2.5 MCG 2 PUFF INH (07:05)
[2024-07-27 07:16] LABS: Hemoglobin 11.6 g/dL (13.0-18.0); Mean Corp Hgb Conc. 33.1 g/dL (33.0-37.0); Mean Corpuscular Hgb 32.7 pg (27.0-31.0); Mean Corpuscular Volume 98.6 fL (80.0-94.0); Mean Platelet Volume 10.5 fL (7.4-10.4); Platelet Count 101 10^3/uL (130-400); Red Blood Cell Count 3.55 10^6/uL (4.70-6.10); Red Cell Dist. Width 15.7 % (11.5-14.5); White Blood Cell Count 5.8 10^3/uL (4.8-10.8)
[2024-07-27 07:43] LABS: Glucose - Point of Care 148 mg/dl (70-99)
[2024-07-27 07:45] LABS: ALT (SGPT) 11 U/L (0-50); AST (SGOT) 21 U/L (17-59); Albumin 3.6 g/dl (3.5-5.0); Alkaline Phosphatase 108 U/L (38-126); Blood Urea Nitrogen 24 mg/dl (9-20); Calcium 9.6 mg/dl (8.4-10.2); Carbon Dioxide 36 mmol/L (22-30); Chloride 100 mmol/L (98-107); Estimated Creatinine Clearance 73 ml/min; Glucose 156 mg/dl (70-99); Potassium 4.2 mmol/L (3.5-5.1); Sodium 143 mmol/L (135-145); Total Bilirubin 0.6 mg/dl (0.2-1.3); eGFR > 60.00
[2024-07-27] MEDS: NOVOLOG FLEXPEN-LOW RESISTANCE SC ×3 (08:00→16:52)
[2024-07-27] MEDS: NEURONTIN 300 MG PO ×4 (08:01→21:39)
[2024-07-27] MEDS: LASIX 40 MG PO (08:01)
[2024-07-27] MEDS: ProAmatine PO ×3 (08:02→15:54)
[2024-07-27] MEDS: FLORINEF 0.2 MG PO (08:02)
[2024-07-27] MEDS: ELIQUIS 5 MG PO ×2 (08:02→20:14)
[2024-07-27] MEDS: NAMENDA 5 MG PO (08:02)
[2024-07-27] MEDS: MIRALAX 17 GRAMS PO (08:03)
--- NOTE | 2024-07-27 11:11 | W.PN.HOSP.TC ---
Addendum entered and electronically signed by Arnold Joiner MD 07/27/24 14:18:
midodrine 5mg tid
Original Note:
Today's Communication/Plan
-
decrease florinef
cephalexin x 5 days additional, then resume suppresion therapy
lasix 40 mg daily
f/u bmp, cbc outpatient in 1 week
F/u pulmonary outpt, pfts, lung nodules
f/u cards outpt
stop digoxin
f/u PCP within 1 week
Assessment / Plan
Assessment / Plan
Physical Exam
General: Other (79y M in no acute distress.)
HEENT: Moist mucous membranes and PERRLA
Respiratory: Other (Decreased BS at bases - otherwise clear.)
Cardiac: S1/S2, Irregular Rhythm, Bradycardia and Murmur (II/ MICHAEL)
GI: Soft, Non Tender, Non Distended and Normal Bowel Sounds
Musculoskeletal: No Clubbing, No Cyanosis and Other (Chronic LE edema. Mild erythema b/l LEs - R > L. Dressing over R lateral leg wound without bleeding / strikethrough.)
Neuro: AO x 3
A/P: Patient is an 79y M with PMH significant for A-Fib, CHF and chronic lymphedema who presents to ED complaining of several days of worsening SOB.
Acute on Chronic HFpEF, resolved
- Admit for further evaluation and treatment.
- Suspect mild exacerbation of CHF given recent dose change in diuretic.
- IV Lasix dose given in the ED.
- Cards Consulted
- Lasix 40mg daily
-F/u BMP outpatient.
- Follow I/Os, daily weights, LE edema and dyspnea.
Chronic LE Lymphedema
Possible Cellulitis
- Chronic issue for this patient and difficult to rule out acute worsening / infection.
- On daily Keflex for suppression.
- Ancef - DC for additioanl 5 days of cephalexin 500mg qid and then can continue suppressive therapy - f/u pcp outpt
- Lymphedema therapies including compression, elevation, etc.
ASCVD
Benign Hypertension
- Stable. Denies CP / SOB / etc.
- Continue Eliquis.
Paroxysmal Atrial Fibrillation
Bradycardia, while sleeping, improving
- Heart rates into the 30s at times while resting. Baseline low rates in the 50s by review of data.
- Discontinue digoxin
� Cardiology consulted
� Eliquis.
- Certainly low heart rates could be contributing to recent complaints / issues with 'weakness'.
#Systolic murmur
�LVEF 51%, Mild to moderate MR and TR; mild concentric LVH
#centrilobular emphysema
-may also be related to patients resp symptoms
-add spirva and albuerol prn
-PFTs and 6MWT outpateint
DM-II
- Stable. Hold metformin acutely.
- Follow glucose for now and cover with SSI as needed.
- Recent A1C was 5.9%.
BETSEY
- Stable. Continue nightly PAP therapy.
BPH / OAB
- Bladder scan protocol.
- s/p bladder stimulator implant June 2024.
- Would hold / discontinue tamsulosin given issues with weakness / orthostasis.
Orthostatic Hypotension
- Continue current midodrine / reduce Florinef due to hypertension
- Follow orthostatic signs.
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
Ambulatory Dysfunction secondary to the above
- Stable. Use boot / brace for ambulation.
- PT / OT evals.
#Multiple lung nodules
-measuring up to 8 mm in diameter. Nodules have increased in size compared to prior CT.
-8 mm right upper lobe nodule measured 5 mm on the prior study dated 09/24/2023.
-F/u pulmonary outpt
Chronic Thrombocytopenia
- Stable / platelet values unchanged from prior.
- No evidence of active bleeding.
- Follow for any obvious bleeding or significant changes in cell counts.
Senile Dementia
- Patient awake and alert and interactive. Answers questions without obvious confusion.
- Monitor for any acute confusion / delirium during hospital stay.
DVT Prophylaxis: On Eliquis
Code Status: Full
More than 30 minutes spent in discharge including
Final examination of the patient
Summarizing hospital stay
Instructions for continuing care to all relevant caregivers
Preparation of discharge records, prescriptions, and referral forms
Total time spent (in minutes): 36
Anticipated Discharge: Today
Subjective/Interval History
-
Date of Service: July 27, 2024
no acute events
Objective Data
-
Labs:
Laboratory Results
07/27/24
06:29
WBC 5.8
Hgb 11.6 L
Hct 35.0 L
Plt Count 101 L
Sodium 143
Potassium 4.2
Chloride 100
Carbon Dioxide 36 H
BUN 24 H
Creatinine 0.9
Glucose 156 H
Calcium 9.6
Total Bilirubin 0.6
AST 21
ALT 11
Alkaline Phosphatase 108
Vital Signs:
Vital Signs
Temp Pulse Resp BP Pulse Ox
97.8 F 54 18 142/82 95
07/27/24 07:54 07/27/24 08:01 07/27/24 07:54 07/27/24 08:02 07/27/24 09:45
I&O
07/26/24 07/27/24 07/28/24
06:59 06:59 06:59
Intake Total 1455 / 1455 1440 / 1440
Output Total 1490 / 1490 675 / 675
Balance -35 / -35 765 / 765
Review of Systems
-
History Source: Patient
All other systems: Not reviewed unless documented
Physical Exam
-
General: Well Developed, Well Nourished, No Apparent Distress, Comfortable and Conversant
HEENT: Normocephalic and Atraumatic
Respiratory: Clear to Auscultation
GI: Soft, Nontender, Nondistended and Normal Bowel Sounds
Musculoskeletal: No Clubbing, No Cyanosis, Edema, Right Lower Extrem and Edema, Left Lower Extrem
Neuro: AO x 3
Psych: Calm
Data Reviewed
-
Diagnostic Radiology: Report Reviewed by me
CT Scan: Report Reviewed by me
Labs: Labs Reviewed by me
--- NOTE | 2024-07-27 11:17 | W.DS.TRANS ---
Addendum entered and electronically signed by Arnold Joiner MD 07/27/24 14:19:
midodrine 5mg tid
Original Note:
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
-
Discharge Instructions:
Sleep Apnea Risk Intermediate
Discharge Diagnosis/Procedures Acute on Chronic HFpEF, resolved
Chronic LE Lymphedema
Possible Cellulitis
Diet Low Fat,Low Cholesterol,Restrict fluids to 48 oz
Activity As tolerated
Blood Work cbc and bmp in 3-5 days
Others Tests Pulmonary Function Testing and 6 minute walk
test
Imaging for lung nodules
Instructions:
Stand-Alone Forms:
Changes to Home Medications: Yes
Discharge Medications:
DC Medications w/original date entered in [employer]
apixaban 5 mg tablet (Eliquis) 5 mg PO BID Blood Clot Prevention/Tx #60 tabs 05/21/23
midodrine 5 mg tablet 5 mg PO DAILYPRN PRN BP<140 04/15/24
cholecalciferol (vitamin D3) 25 mcg (1,000 unit) tablet (Vitamin D3) 25 mcg PO QPM Supplement 04/22/24
pravastatin 40 mg tablet 40 mg PO QPM High Cholesterol 04/22/24
vibegron 75 mg tablet (Gemtesa) 75 mg PO DAILY Urinary Issue 04/22/24
ferrous sulfate 325 mg (65 mg iron) tablet 325 mg PO DAILY Supplement 06/07/24
gabapentin 300 mg capsule 300 mg PO QID Neurological Condition 06/07/24
cephalexin 500 mg capsule 500 mg PO DAILY Infection 06/30/24
metformin 500 mg tablet 500 mg PO BID Diabetes 06/30/24
albuterol sulfate 90 mcg/actuation aerosol inhaler 2 puff inhalation Q6H PRN shortness of breath or wheezing #8.5 grams 07/27/24
cephalexin 500 mg capsule 500 mg PO QID 5 days #20 caps 07/27/24
fludrocortisone 0.1 mg tablet 0.1 mg PO DAILY 30 days #30 tabs 07/27/24
furosemide 20 mg tablet 40 mg (2 x 20 mg) PO DAILY 30 days #60 tabs 07/27/24
tamsulosin 0.4 mg capsule (Flomax) 0.4 mg PO QPM Urinary Issue #7 caps 07/27/24
tiotropium bromide 2.5 mcg/actuation mist for inhalation (Spiriva Respimat) 2 puff inhalation R DAILY #4 grams 07/27/24
Home Medication Changes
albuterol sulfate 90 mcg/actuation aerosol inhaler 2 puff inhalation Q6H PRN shortness of breath or wheezing #8.5 grams 07/27/24
cephalexin 500 mg capsule 500 mg PO QID 5 days #20 caps 07/27/24
fludrocortisone 0.1 mg tablet 0.1 mg PO DAILY 30 days #30 tabs 07/27/24
furosemide 20 mg tablet 40 mg (2 x 20 mg) PO DAILY 30 days #60 tabs 07/27/24
tamsulosin 0.4 mg capsule (Flomax) 0.4 mg PO QPM Urinary Issue #7 caps 07/27/24
tiotropium bromide 2.5 mcg/actuation mist for inhalation (Spiriva Respimat) 2 puff inhalation R DAILY #4 grams 07/27/24
Pending Results: No
--- NOTE | 2024-07-27 11:46 | CM ---
Addendum entered by Susanne Norton 07/28/24 10:26:
correction to Case # [id number]
Addendum entered by Susanne Norton 07/27/24 15:00:
Await [employer] appeal determination.
Addendum entered by Susanne Norton 07/27/24 13:58:
DNOD reviewed with sourav Self and copy to be emailed to [email or web address] via secure email.
Addendum entered by Susanne Norton 07/27/24 13:33:
TT from floor community mental health worker, she received a call from jeremy at [facility] [phone] re case # [id number]..
CM returned call and left for return call.
Addendum entered by Susanne Norton 07/27/24 13:00:
[employer] appeal initiated by daughter
request for information received.
Appeal in progress.
Original Note:
TC to patients daughter Clair.
She would like to speak with MD.
IMM reviewed, daughter wanted form emailed to her at [email or web address].
Plan: home with VN when stable.
[2024-07-27 11:58] LABS: Glucose - Point of Care 125 mg/dl (70-99)
--- NOTE | 2024-07-27 12:33 | VNURNOTE ---
Home health liaison met with patient to discuss [facility] services, visit scheduling/frequency, homebound status and pet policy. Patient has had [facility] in the past and is agreeable to having services again. He understands home visits will be 1-2 times a
week to assess and teach medical management. Patient aware a visiting nurse will contact them for start of care within 1-2 days after discharge from . [facility] Referral completed in care port
--- NOTE | 2024-07-27 13:17 | W.PN.CD ---
Today's Communication / Plan
-
discharge planning on eliquis 5mg bid, lasix 40mg daily, midodrine 5mg tid, florinef 0.1mg daily (reduced dose)
digoxin stopped
BMP in one week
please call us back with additional questions
Impression / Plan
-
I/P: 79M with persistent atrial fibrillation (on digoxin and apixaban) CAD (PCI 1999), hypertension, dyslipidemia, DM, CVA 2018, COPD, HFpEF, and orthostatic hypotension who presented to the emergency department chief complaint of shortness of
breath
Outpatient catcher helper: Dr. Serra
HFpEF, acute on chronic
-He was diuresed with intravenous furosemide in the ER
-EF 50-55%, mild/mod MR and TR, aortic sclerosis
-His furosemide 40 mg Wednesday/Wednesday/Wednesday was decreased during his last hospitalization to 20mg and he presents back 14 days later with heart failure
-will discharge on lasix 40mg daily; will reduce florinef to 0.1mg daily
Persistent atrial fibrillation
-Stopped digoxin for bradycardia
-Oral Anticoagulation: Apixaban 5 mg twice daily
-[id number]: score at least 8 (Heart failure, HTN, age 75 or more, Diabetes Mellitus, prior Stroke/TIA, Vascular disease)
Orthostatic hypotension
-reduce florinef as above
-cont midodrine 5mg tid
Cellulitis, acute on chronic, per hospitalist
CAD, stable without chest pain, on apixaban (persistent atrial fibrillation) and pravastatin (LDL 61 last summer)
PAD, seen by Dr. White in the past, he would benefit from lymphedema therapy
Thrombocytopenia, chronic, stable, no acute bleeding
NIDDM
Prior CVA
Dementia
SUBJECTIVE:
As above.
DATA:
Transthoracic echocardiogram, 05/2023:
Normal left ventricular size, wall thickness and systolic function.
Normal right ventricular size and function.
Mild mitral regurgitation.
Mild to moderate tricuspid regurgitation (TR).
Mildly Dilated aortic root at 4.1 cm.
Compared to the previous echo 11/17/21, TR has increased from trace. Otherwise
there is no significant change.
Physical Exam
Vital Signs/Labs
Vital Signs
Temp Pulse Resp BP Pulse Ox
98.3 F 54 18 159/75 98
07/27/24 11:24 07/27/24 08:01 07/27/24 11:24 07/27/24 12:03 07/27/24 11:24
07/26/24 07/27/24 07/28/24
06:59 06:59 06:59
Actual Weight 97.721 kg 101.151 kg
07/27/24 06:29
07/27/24 06:29
Magnesium 1.7 mg/dl (1.6-2.3) 07/25/24 22:14
Digoxin 0.5 ng/ml (0.8-2.0) L 07/25/24 14:35
07/24/24
19:23
[id number] Pept 5310
LAB Results
07/24/24 07/25/24
21:32 22:14
Troponin I 0.017 0.018
Physical Exam
Constitutional: No acute distress
EENT: Moist mucous membranes
Cardiovascular: JVD pressure is normal, Rhythm/rate is irregular, Pedal edema present and Systolic murmur present
Respiratory: Respiratory effort normal and Lungs clear to auscul.
Neuro/Psych: Alert
Data Reviewed
-
Date of Service: July 27, 2024
EKG: Other (Tele: A fib 50s)
Echo: Report Reviewed by me
Labs: Labs Reviewed by me
[2024-07-27 16:47] LABS: Glucose - Point of Care 107 mg/dl (70-99)
[2024-07-27] MEDS: PRAVACHOL 40 MG PO (17:02)
[2024-07-27] MEDS: ROXICODONE 5 MG PO ×2 (17:06→23:58)
[2024-07-27 20:51] LABS: Glucose - Point of Care 278 mg/dl (70-99)
[2024-07-28] VITALS (10 sets, daily range): BP systolic 122–164; BP diastolic 66–87; PULSE 52–73; O2SAT 97
[2024-07-28] MEDS: TYLENOL 500 MG PO (03:46)
[2024-07-28] MEDS: ANCEF 5 IV ×3 (06:01→21:18)
[2024-07-28] MEDS: SPIRIVA RESPIMAT 2.5 MCG 2 PUFF INH (07:22)
[2024-07-28 07:59] LABS: Glucose - Point of Care 238 mg/dl (70-99)
[2024-07-28] MEDS: NOVOLOG FLEXPEN-LOW RESISTANCE 2 UNITS SC (08:26)
[2024-07-28] MEDS: NAMENDA 5 MG PO (08:27)
[2024-07-28] MEDS: LASIX 40 MG PO (08:27)
[2024-07-28] MEDS: MIRALAX 17 GRAMS PO (08:27)
[2024-07-28] MEDS: NEURONTIN 300 MG PO ×4 (08:27→21:18)
[2024-07-28] MEDS: ELIQUIS 5 MG PO ×2 (08:27→19:57)
[2024-07-28] MEDS: FLORINEF 0.1 MG PO (08:28)
[2024-07-28] MEDS: ProAmatine PO ×3 (08:31→16:49)
[2024-07-28 08:33] LABS: Hematocrit 36.2 % (39.0-52.0); Hemoglobin 12.3 g/dL (13.0-18.0); Mean Corpuscular Hgb 34.3 pg (27.0-31.0); Mean Corpuscular Volume 100.8 fL (80.0-94.0); Mean Platelet Volume 10.5 fL (7.4-10.4); Platelet Count 112 10^3/uL (130-400); Red Blood Cell Count 3.59 10^6/uL (4.70-6.10); Red Cell Dist. Width 15.7 % (11.5-14.5); White Blood Cell Count 6.4 10^3/uL (4.8-10.8)
[2024-07-28 09:08] LABS: ALT (SGPT) 11 U/L (0-50); AST (SGOT) 24 U/L (17-59); Albumin 4.3 g/dl (3.5-5.0); Alkaline Phosphatase 125 U/L (38-126); Blood Urea Nitrogen 30 mg/dl (9-20); Calcium 9.8 mg/dl (8.4-10.2); Carbon Dioxide 35 mmol/L (22-30); Chloride 99 mmol/L (98-107); Estimated Creatinine Clearance 73 ml/min; Glucose 164 mg/dl (70-99); Potassium 4.6 mmol/L (3.5-5.1); Sodium 142 mmol/L (135-145); Total Bilirubin 0.7 mg/dl (0.2-1.3); Total Protein 6.7 g/dl (6.3-8.2); eGFR > 60.00
--- NOTE | 2024-07-28 10:24 | CM ---
Addendum entered by Susanne Norton 07/28/24 16:15:
d/c on hold today.
Addendum entered by Susanne Norton 07/28/24 13:21:
Patients Aide will pick patient up at 6 pm, please call daughter with discharge instructions.
Addendum entered by Susanne Norton 07/28/24 13:11:
Determination from [facility] case # [id number]- the physician reviewer agreed with the termination off services.
Beneficiary Liability starts 07/29/24.
Spoke with Clair, patients POA, she received an automated call from [facility] telling her the same.
Clair agreeable for d/c home. Clair aware patient liability does not staqrt till tomorrow, but working on transport for today.
Clair will notify case picker with a picker time.
MD updated.
[facility] updated re d/c today.
Addendum entered by Susanne Norton 07/28/24 10:28:
Return call from Kev at [facility] [phone] re case # [id number].
Concern presented to Kev from daughter that patient has dementia and plan of care is not being discussed with her.
Daughter with concerns that father is still having pain.
CM spoke with daughter yesterday and doctor also spoke with daughter re concerns.
Original Note:
copy of [facility] DND forwarded to daughter Clair
Spoke with Clair via phone.
[facility] appeal pending.
[2024-07-28 10:37] LABS: Glucose - Point of Care 151 mg/dl (70-99)
[2024-07-28 12:13] LABS: Glucose - Point of Care 175 mg/dl (70-99)
--- NOTE | 2024-07-28 12:15 | W.PN.HOSP.TC ---
Today's Communication/Plan
-
decrease florinef
cephalexin x 5 days additional, then resume suppresion therapy
lasix 40 mg daily
f/u bmp, cbc outpatient in 1 week
F/u pulmonary outpt, pfts, lung nodules
f/u cards outpt
stop digoxin
f/u PCP within 1 week
Assessment / Plan
Assessment / Plan
Physical Exam
General: Other (79y M in no acute distress.)
HEENT: Moist mucous membranes and PERRLA
Respiratory: Other (Decreased BS at bases - otherwise clear.)
Cardiac: S1/S2, Irregular Rhythm, Bradycardia and Murmur (II/ MICHAEL)
GI: Soft, Non Tender, Non Distended and Normal Bowel Sounds
Musculoskeletal: No Clubbing, No Cyanosis and Other (Chronic LE edema. Mild erythema b/l LEs - R > L. Dressing over R lateral leg wound without bleeding / strikethrough.)
Neuro: AO x 3
A/P: Patient is an 79y M with PMH significant for A-Fib, CHF and chronic lymphedema who presents to ED complaining of several days of worsening SOB.
Acute on Chronic HFpEF, resolved
- Admit for further evaluation and treatment.
- Suspect mild exacerbation of CHF given recent dose change in diuretic.
- IV Lasix dose given in the ED.
- Cards Consulted
- Lasix 40mg daily
-F/u BMP outpatient.
- Follow I/Os, daily weights, LE edema and dyspnea.
Chronic LE Lymphedema
Possible Cellulitis
- Chronic issue for this patient and difficult to rule out acute worsening / infection.
- On daily Keflex for suppression.
- Ancef - DC for additioanl 5 days of cephalexin 500mg qid and then can continue suppressive therapy - f/u pcp outpt
- Lymphedema therapies including compression, elevation, etc.
ASCVD
Benign Hypertension
- Stable. Denies CP / SOB / etc.
- Continue Eliquis.
Paroxysmal Atrial Fibrillation
Bradycardia, while sleeping, improving
- Heart rates into the 30s at times while resting. Baseline low rates in the 50s by review of data.
- Discontinue digoxin
� Cardiology consulted
� Eliquis.
- Certainly low heart rates could be contributing to recent complaints / issues with 'weakness'.
#Systolic murmur
�LVEF 51%, Mild to moderate MR and TR; mild concentric LVH
#centrilobular emphysema
-may also be related to patients resp symptoms
-add spirva and albuerol prn
-PFTs and 6MWT outpateint
-f/u pulm outpt
DM-II
- Stable. Hold metformin acutely.
- Follow glucose for now and cover with SSI as needed.
- Recent A1C was 5.9%.
BETSEY
- Stable. Continue nightly PAP therapy.
BPH / OAB
- Bladder scan protocol.
- s/p bladder stimulator implant June 2024.
- Would hold / discontinue tamsulosin given issues with weakness / orthostasis.
Orthostatic Hypotension
- Continue current midodrine / reduce Florinef due to hypertension
- Follow orthostatic signs.
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
Ambulatory Dysfunction secondary to the above
- Stable. Use boot / brace for ambulation.
- PT / OT evals.
#Multiple lung nodules
-measuring up to 8 mm in diameter. Nodules have increased in size compared to prior CT.
-8 mm right upper lobe nodule measured 5 mm on the prior study dated 09/24/2023.
-F/u pulmonary outpt
Chronic Thrombocytopenia
- Stable / platelet values unchanged from prior.
- No evidence of active bleeding.
- Follow for any obvious bleeding or significant changes in cell counts.
Senile Dementia
- Patient awake and alert and interactive. Answers questions without obvious confusion.
- Monitor for any acute confusion / delirium during hospital stay.
DVT Prophylaxis: On Eliquis
Code Status: Full
More than 30 minutes spent in discharge including
Final examination of the patient
Summarizing hospital stay
Instructions for continuing care to all relevant caregivers
Preparation of discharge records, prescriptions, and referral forms
Total time spent (in minutes): 36
Anticipated Discharge: Today
Subjective/Interval History
-
Date of Service: July 28, 2024
laying in bed, no issues from patient. sitting in chair, no issues. no acute events overnight. vitals stable
Objective Data
-
Labs:
Laboratory Results
07/28/24
07:03
WBC 6.4
Hgb 12.3 L
Hct 36.2 L
Plt Count 112 L
Sodium 142
Potassium 4.6
Chloride 99
Carbon Dioxide 35 H
BUN 30 H
Creatinine 0.9
Glucose 164 H
Calcium 9.8
Total Bilirubin 0.7
AST 24
ALT 11
Alkaline Phosphatase 125
Vital Signs:
Vital Signs
Temp Pulse Resp BP Pulse Ox
98.4 F 56 18 161/67 98
07/28/24 11:00 07/28/24 11:00 07/28/24 11:00 07/28/24 11:00 07/28/24 11:00
I&O
07/27/24 07/28/24 07/29/24
06:59 06:59 06:59
Intake Total 1440 / 1440 2160 / 2160
Output Total 675 / 675 2300 / 2300
Balance 765 / 765 -140 / -140
Review of Systems
-
History Source: Patient
All other systems: Not reviewed unless documented
Physical Exam
-
General: Well Developed, Well Nourished, No Apparent Distress, Comfortable and Conversant
HEENT: Normocephalic and Atraumatic
Respiratory: Clear to Auscultation
GI: Soft, Nontender, Nondistended and Normal Bowel Sounds
Musculoskeletal: No Clubbing, No Cyanosis, Edema, Right Lower Extrem and Edema, Left Lower Extrem
Neuro: AO x 3
Psych: Calm
Data Reviewed
-
Diagnostic Radiology: Report Reviewed by me
CT Scan: Report Reviewed by me
Labs: Labs Reviewed by me
--- NOTE | 2024-07-28 12:18 | W.DS.TRANS ---
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
-
Discharge Instructions:
Sleep Apnea Risk Intermediate
Discharge Diagnosis/Procedures Acute on Chronic HFpEF, resolved
Chronic LE Lymphedema
Possible Cellulitis
Diet Low Fat,Low Cholesterol,Restrict fluids to 48 oz
Activity As tolerated
Blood Work cbc and bmp in 3-5 days
Others Tests Pulmonary Function Testing and 6 minute walk
test
Imaging for lung nodules
Instructions:
Stand-Alone Forms:
Changes to Home Medications: Yes
Discharge Medications:
DC Medications w/original date entered in [employer]
apixaban 5 mg tablet (Eliquis) 5 mg PO BID Blood Clot Prevention/Tx #60 tabs 05/21/23
cholecalciferol (vitamin D3) 25 mcg (1,000 unit) tablet (Vitamin D3) 25 mcg PO QPM Supplement 04/22/24
pravastatin 40 mg tablet 40 mg PO QPM High Cholesterol 04/22/24
vibegron 75 mg tablet (Gemtesa) 75 mg PO DAILY Urinary Issue 04/22/24
ferrous sulfate 325 mg (65 mg iron) tablet 325 mg PO DAILY Supplement 06/07/24
gabapentin 300 mg capsule 300 mg PO QID Neurological Condition 06/07/24
cephalexin 500 mg capsule 500 mg PO DAILY Infection 06/30/24
metformin 500 mg tablet 500 mg PO BID Diabetes 06/30/24
albuterol sulfate 90 mcg/actuation aerosol inhaler 2 puff inhalation Q6H PRN shortness of breath or wheezing #8.5 grams 07/27/24
cephalexin 500 mg capsule 500 mg PO QID 5 days #20 caps 07/27/24
fludrocortisone 0.1 mg tablet 0.1 mg PO DAILY 30 days #30 tabs 07/27/24
furosemide 20 mg tablet 40 mg (2 x 20 mg) PO DAILY 30 days #60 tabs 07/27/24
midodrine 5 mg tablet 5 mg PO TID@0800,1200,1600 30 days #90 tabs 07/27/24
tamsulosin 0.4 mg capsule (Flomax) 0.4 mg PO QPM Urinary Issue #7 caps 07/27/24
tiotropium bromide 2.5 mcg/actuation mist for inhalation (Spiriva Respimat) 2 puff inhalation R DAILY #4 grams 07/27/24
Home Medication Changes
albuterol sulfate 90 mcg/actuation aerosol inhaler 2 puff inhalation Q6H PRN shortness of breath or wheezing #8.5 grams 07/27/24
cephalexin 500 mg capsule 500 mg PO QID 5 days #20 caps 07/27/24
fludrocortisone 0.1 mg tablet 0.1 mg PO DAILY 30 days #30 tabs 07/27/24
furosemide 20 mg tablet 40 mg (2 x 20 mg) PO DAILY 30 days #60 tabs 07/27/24
midodrine 5 mg tablet 5 mg PO TID@0800,1200,1600 30 days #90 tabs 07/27/24
tamsulosin 0.4 mg capsule (Flomax) 0.4 mg PO QPM Urinary Issue #7 caps 07/27/24
tiotropium bromide 2.5 mcg/actuation mist for inhalation (Spiriva Respimat) 2 puff inhalation R DAILY #4 grams 07/27/24
Pending Results: No
[2024-07-28] MEDS: NOVOLOG FLEXPEN-LOW RESISTANCE 1 UNITS SC ×2 (12:40→17:09)
[2024-07-28] MEDS: PROTONIX IV 40 MG IV (14:39)
[2024-07-28] MEDS: NSS (PRESERVATIVE FREE) 10 ML IV (14:40)
[2024-07-28] MEDS: PRAVACHOL 40 MG PO (17:08)
[2024-07-28 17:10] LABS: Glucose - Point of Care 151 mg/dl (70-99)
[2024-07-28 21:02] LABS: Glucose - Point of Care 156 mg/dl (70-99)
[2024-07-29 01:04] VITALS: PULSE 60
[2024-07-29 03:52] VITALS: BP 150/75
[2024-07-29 07:18] LABS: Hemoglobin 11.9 g/dL (13.0-18.0); Mean Corp Hgb Conc. 33.1 g/dL (33.0-37.0); Mean Corpuscular Hgb 32.2 pg (27.0-31.0); Mean Corpuscular Volume 97.6 fL (80.0-94.0); Mean Platelet Volume 10.5 fL (7.4-10.4); Platelet Count 114 10^3/uL (130-400); Red Blood Cell Count 3.69 10^6/uL (4.70-6.10); Red Cell Dist. Width 15.5 % (11.5-14.5); White Blood Cell Count 6.8 10^3/uL (4.8-10.8)
[2024-07-29 07:31] LABS: ALT (SGPT) 11 U/L (0-50); AST (SGOT) 25 U/L (17-59); Albumin 3.6 g/dl (3.5-5.0); Alkaline Phosphatase 112 U/L (38-126); Blood Urea Nitrogen 29 mg/dl (9-20); Calcium 9.6 mg/dl (8.4-10.2); Carbon Dioxide 32 mmol/L (22-30); Chloride 103 mmol/L (98-107); Estimated Creatinine Clearance 82 ml/min; Glucose 129 mg/dl (70-99); Potassium 4.3 mmol/L (3.5-5.1); Sodium 142 mmol/L (135-145); Total Bilirubin 0.7 mg/dl (0.2-1.3); eGFR > 60.00
[2024-07-29] MEDS: SPIRIVA RESPIMAT 2.5 MCG 2 PUFF INH (07:56)
[2024-07-29 07:57] LABS: Glucose - Point of Care 128 mg/dl (70-99)
[2024-07-29] MEDS: NOVOLOG FLEXPEN-LOW RESISTANCE SC ×2 (08:00→16:00)
[2024-07-29 08:04] VITALS: BP 143/90
[2024-07-29] MEDS: MIRALAX 17 GRAMS PO (09:25)
[2024-07-29] MEDS: ProAmatine PO ×3 (09:25→17:16)
[2024-07-29] MEDS: FLORINEF 0.1 MG PO (09:27)
[2024-07-29] MEDS: NAMENDA 5 MG PO (09:27)
[2024-07-29] MEDS: LASIX 40 MG PO (09:27)
[2024-07-29] MEDS: ELIQUIS 5 MG PO (09:27)
[2024-07-29] MEDS: NEURONTIN 300 MG PO ×3 (09:27→17:21)
[2024-07-29 10:21] VITALS: BP 134/77; BP 136/79; PULSE 64; PULSE 80; PULSE 82
--- NOTE | 2024-07-29 11:23 | W.PN.HOSP.TC ---
Addendum entered and electronically signed by Arnold Joiner MD 07/30/24 15:55:
[id number]
ok to cont tamsulosin - bps improved inpatient
Original Note:
Today's Communication/Plan
-
decrease florinef
cephalexin x 5 days additional, then resume suppresion therapy
lasix 40 mg daily
f/u bmp, cbc outpatient in 1 week
F/u pulmonary outpt, pfts, lung nodules
f/u cards outpt
stop digoxin
f/u PCP within 1 week
Assessment / Plan
Assessment / Plan
Physical Exam
General: Other (79y M in no acute distress.)
HEENT: Moist mucous membranes and PERRLA
Respiratory: Other (Decreased BS at bases - otherwise clear.)
Cardiac: S1/S2, Irregular Rhythm, Bradycardia and Murmur (II/ MICHAEL)
GI: Soft, Non Tender, Non Distended and Normal Bowel Sounds
Musculoskeletal: No Clubbing, No Cyanosis and Other (Chronic LE edema. Mild erythema b/l LEs - R > L. Dressing over R lateral leg wound without bleeding / strikethrough.)
Neuro: AO x 3
A/P: Patient is an 79y M with PMH significant for A-Fib, CHF and chronic lymphedema who presents to ED complaining of several days of worsening SOB.
Acute on Chronic HFpEF, resolved
- Admit for further evaluation and treatment.
- Suspect mild exacerbation of CHF given recent dose change in diuretic.
- IV Lasix dose given in the ED.
- Cards Consulted
- Lasix 40mg daily
-F/u BMP outpatient.
- Follow I/Os, daily weights, LE edema and dyspnea.
Chronic LE Lymphedema
Possible Cellulitis
- Chronic issue for this patient and difficult to rule out acute worsening / infection.
- On daily Keflex for suppression.
- Ancef - DC for additioanl 5 days of cephalexin 500mg qid and then can continue suppressive therapy - f/u pcp outpt
- Lymphedema therapies including compression, elevation, etc.
ASCVD
Benign Hypertension
- Stable. Denies CP / SOB / etc.
- Continue Eliquis.
Paroxysmal Atrial Fibrillation
Bradycardia, while sleeping, improving
- Heart rates into the 30s at times while resting. Baseline low rates in the 50s by review of data.
- Discontinue digoxin
� Cardiology consulted
� Eliquis.
- Certainly low heart rates could be contributing to recent complaints / issues with 'weakness'.
#Systolic murmur
�LVEF 51%, Mild to moderate MR and TR; mild concentric LVH
#centrilobular emphysema
-may also be related to patients resp symptoms
-add spirva and albuerol prn
-PFTs and 6MWT outpateint
-f/u pulm outpt
DM-II
- Stable. Hold metformin acutely.
- Follow glucose for now and cover with SSI as needed.
- Recent A1C was 5.9%.
BETSEY
- Stable. Continue nightly PAP therapy.
BPH / OAB
- Bladder scan protocol.
- s/p bladder stimulator implant June 2024.
- Would hold / discontinue tamsulosin given issues with weakness / orthostasis.
Orthostatic Hypotension
- Continue current midodrine / reduce Florinef due to hypertension
- Follow orthostatic signs.
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
Ambulatory Dysfunction secondary to the above
- Stable. Use boot / brace for ambulation.
- PT / OT evals.
#Multiple lung nodules
-measuring up to 8 mm in diameter. Nodules have increased in size compared to prior CT.
-8 mm right upper lobe nodule measured 5 mm on the prior study dated 09/24/2023.
-F/u pulmonary outpt
Chronic Thrombocytopenia
- Stable / platelet values unchanged from prior.
- No evidence of active bleeding.
- Follow for any obvious bleeding or significant changes in cell counts.
Senile Dementia
- Patient awake and alert and interactive. Answers questions without obvious confusion.
- Monitor for any acute confusion / delirium during hospital stay.
#Dizziness
-on and off
-ct head unremarkable
-suspect 2/2 to dementia, deconditioning
-f/u outpt
-no issues and tolerating with PT/OT
DVT Prophylaxis: On Eliquis
Code Status: Full
More than 30 minutes spent in discharge including
Final examination of the patient
Summarizing hospital stay
Instructions for continuing care to all relevant caregivers
Preparation of discharge records, prescriptions, and referral forms
Total time spent (in minutes): 36
Anticipated Discharge: Today
Subjective/Interval History
-
Date of Service: July 29, 2024
Feeling well, tolerate diet, doing crossword close. No issues with the patient.
Objective Data
-
Labs:
Laboratory Results
07/29/24
06:15
WBC 6.8
Hgb 11.9 L
Hct 36.0 L
Plt Count 114 L
Sodium 142
Potassium 4.3
Chloride 103
Carbon Dioxide 32 H
BUN 29 H
Creatinine 0.8
Glucose 129 H
Calcium 9.6
Total Bilirubin 0.7
AST 25
ALT 11
Alkaline Phosphatase 112
Vital Signs:
Vital Signs
Temp Pulse Resp BP Pulse Ox
98.2 F 55 18 143/90 96
07/29/24 10:22 07/29/24 09:25 07/29/24 10:22 07/29/24 09:25 07/29/24 10:22
I&O
07/28/24 07/29/24 07/30/24
06:59 06:59 06:59
Intake Total 2160 / 2160 1260 / 1260
Output Total 2300 / 2300 2785 / 2785 200 / 200
Balance -140 / -140 -1525 / -1525 -200 / -200
Review of Systems
-
History Source: Patient
All other systems: Not reviewed unless documented
Data Reviewed
-
Diagnostic Radiology: Report Reviewed by me
CT Scan: Report Reviewed by me
Labs: Labs Reviewed by me
--- NOTE | 2024-07-29 11:53 | CM ---
Patient stable for d/c today per hospitalist.
Spoke w/ patient's daughter/POA, Clair, who requested a phone call from doctor regarding test results. TT doctor w/ this request.
Clair stated she will call patient's aide to see availability to pick patient up and will call CM back
[facility] accepted for services
Plan: Home w/ [facility]
[2024-07-29 12:36] LABS: Glucose - Point of Care 154 mg/dl (70-99)
[2024-07-29] MEDS: NOVOLOG FLEXPEN-LOW RESISTANCE 1 UNITS SC (13:14)
[2024-07-29 15:43] VITALS: BP 147/79
[2024-07-29 16:37] LABS: Glucose - Point of Care 130 mg/dl (70-99)
[2024-07-29] MEDS: PRAVACHOL 40 MG PO (17:21)
--- NOTE | 2024-07-31 09:54 | W.HF.CON ---
Heart Failure
- LV Function
Left ventricular function study result: LV Ejection fraction >/= 50%
Ejection Fraction Percentage: 51
- ARNI
Patient already on ARNI: No
Heart Failure ARNI Not Indicated: LV Ejection Fraction >/= 40%
- ACEI/ARB
Patient already on ACEI/ARB: No
Heart Failure ACEI/ARB Not Indicated: LV Ejection Fraction > 40%
- Beta Chris
Patient already on Evidence Based Beta Chris: No
Heart Failure Evidence Based Beta Chris Not Indicated: LV Ejection Fraction > 40%
- Mineralocorticord Receptor Antagonist
Patient already on MRA: No
Heart Failure MRA Not Indicated: LV Ejection Fraction > 40%
- SGLT-2 Inhibitor
Patient already on SGLT-2 Inhibitor: No
Heart Failure SGLT-2 Inhibitor Contraindication: Patient Refusal
- Afib Anticoagulation
Patient already on Anticoagulation for Afib: Yes
- NYHA CHF Classification
NYHA CHF Classification Level: Class III - Symptoms w/ min exertion, interferes w/ nml daily activity
- ACC/AHA Stage
ACC/AHA Stage: Stage C: Symptomatic Heart Failure
== END 2024-07-29 19:18 | disposition home health service (06) | DRG 291 ==
LOC: 4 EAST ACU 01:53
PROVIDERS: Emergency Medicine; Nurse Practitioner Gerontology; Physician Assistant; Student in an Organized Health Care Education/Training Program; ADMITTING PHYSICIAN Hospitalist; ATTENDING PHYSICIAN Internal Medicine; CONSULT PHYSICIAN Internal Medicine Cardiovascular Disease; EMERGENCY PHYSICIAN Student in an Organized Health Care Education/Training Program; FAMILY PHYSICIAN Family Medicine
PROC: 5A09357 Assistance with Respiratory Ventilation, Less than 24 Consecutive Hours, Continuous Positive Airway Pressure (ICD-10-PCS; 2024-07-26)
DX: I11.0 Hypertensive heart disease with heart failure (principal); I50.33 Acute on chronic diastolic (congestive) heart failure; L03.115 Cellulitis of right lower limb; F03.93 Unspecified dementia, unspecified severity, with mood disturbance; I25.10 Atherosclerotic heart disease of native coronary artery without angina pectoris; I08.1 Rheumatic disorders of both mitral and tricuspid valves; I89.0 Lymphedema, not elsewhere classified; J43.2 Centrilobular emphysema; G47.33 Obstructive sleep apnea (adult) (pediatric); I95.1 Orthostatic hypotension; K21.9 Gastro-esophageal reflux disease without esophagitis; M21.371 Foot drop, right foot; D69.49 Other primary thrombocytopenia; F32.A Depression, unspecified; E66.9 Obesity, unspecified; E78.00 Pure hypercholesterolemia, unspecified; E11.9 Type 2 diabetes mellitus without complications; D50.9 Iron deficiency anemia, unspecified; N32.81 Overactive bladder; I48.0 Paroxysmal atrial fibrillation; N40.0 Benign prostatic hyperplasia without lower urinary tract symptoms; I69.398 Other sequelae of cerebral infarction; Z79.01 Long term (current) use of anticoagulants; Z79.84 Long term (current) use of oral hypoglycemic drugs; Z88.5 Allergy status to narcotic agent; Z87.891 Personal history of nicotine dependence; Z96.643 Presence of artificial hip joint, bilateral; Z96.651 Presence of right artificial knee joint; Z98.84 Bariatric surgery status; Z79.899 Other long term (current) drug therapy; Z79.52 Long term (current) use of systemic steroids; Z68.31 Body mass index [BMI] 31.0-31.9, adult
CPT/HCPCS: 70450; 71046; 71275; 80048; 80053; 80162; 82962; 83735; 83880; 84484; 85025; 85027; 85379; 93005; 93306; 93970; 94640; 94660; 96374; 96375; 97162; 97166; 97530; 97535; 99285; Q9967

== ENCOUNTER 2024-08-15 06:44 | Outpatient (RCR) | payer SELFPAY | END 2024-08-15 23:59 | disposition home or self-care (01) | LOC: RPT 06:44 | PROVIDERS: ATTENDING PHYSICIAN Student in an Organized Health Care Education/Training Program; FAMILY PHYSICIAN Family Medicine | DX: I89.0 Lymphedema, not elsewhere classified (principal); Z73.6 Limitation of activities due to disability | CPT/HCPCS: 97162; 97530; 97760 ==

== ENCOUNTER 2024-08-16 16:08 | Inpatient (IN) | payer MEDICARE, OTHER, SELFPAY ==
[2024-08-16] VITALS (13 sets, daily range): BP systolic 104–147; BP diastolic 57–86; PULSE 61–101; O2SAT 97; BMI 32.9; BMI 32.7
--- NOTE | 2024-08-16 11:55 | EDRN ---
Pt in room w/ caregiver at this time. Pt/caregiver state pt has chronic lower back pain and has had a recent flare about 4 days ago of this pain. Pt has been on 300 mg gabapentin QID and it was held burton 2 days thurs or Fri started and restarted Sat
for pt having dizziness. Pt states pain is 10/10 and he is unable to get up off of sofa or out of bed. ED PCT who brought him back to room stated pt is very unsteady on his feet and suggested using a urinal if needs to void.
--- NOTE | 2024-08-16 12:00 | EDRN ---
Zakiya TERRY in room w/ pt at this time.
--- NOTE | 2024-08-16 12:21 | ED.GENMED ---
History of Present Illness
General
Chief Complaint: Back Pain
Source: patient
Exam Limitations: none
Time Seen by Provider: 08/16/24 11:42
Nursing documentation reviewed up to this point in time: agreed with
History of Present Illness
History of Present Illness:
79 y/o M with h/o CVA R foot drop chronically, peripheral neuropathy, mild dementia, chronic lymphedema
afib, chf, orthostasis
here with lower back pain exacerbation
does have chornic lower back pain, no fractures
remotely had spinal surgery for stenosis years ago;
he was here in july for ambulatory dysfunction related to back pain and hip pain
course was complicated by some weakness that they thought was related due to hypertension from higher doses of furosemide per familys request
he also had overactive bladder and bph and a bladder stimulator
has h/o permanent afib and bradycardia, on digoxin and eliquis
pt was also admitted end of july for chronic lymphedema, acute on chronic CHF and possible celluitis
he is on cephalexin still from that
i spoke with daughter on [employer] phone
soudns as if this back pain has been ongoing problem without diagnosis; he is scheduled for MRI but hasn't had it yet
has remote h/o spinal stenosis
she wants him to have the MRI today
the caregiver at bedside was very knowledgeable regarding pt's history and notes that this exacerbation of pack pain started after stopping his gabapentin for 2 days last week because of the perisstent dizziness/wekaness he has that has also been
ongoing
when the back pain recurred, they restarted the gabapentin
pt has caregiver horus at home in the AM and evenign and is by himself during the day and at night
family does not wish for him to go to rehab
but they want his pain better controlled
oxycodoen was working but it ran out
Past History
Past History
ED Past Medical History: Arrthythmia (Atrial fibrillation), CAD, CHF, CVA (with right sided weakness), GERD, HTN, Hypercholesterolemia, NIDDM, [place], Psychiatric (Anxiety, Depression) and Other (GI bleed, GI stent, Orthostatic hypotension, Iron
deficiency anemia, Neuropathy, Sleep apnea, UTI, )
ED Past Surgical History: Cardiac (stent), Cholecystectomy, Orthopedic (Bilateral hip replacements, Left rotator cuff surgery, Right knee replacement) and Other (Gastric bypass)
Patient has exhibited threatening behavior?: No
PSI?: No
Social History
Tobacco: Former smoker
Alcohol: None
Drug: None
Personal:
Living: with family
Employment: Not employed
Family History
Family History: Other (Reviewed and Noncontributory)
Phy Exam
Physical Exam
Physical Exam:
GENERAL: Alert , in no apparent distress, comfortable at rest
HEAD: NCAT
NECK: no midline tenderness, active ROM intact, no paraspinal muscle tenderness;
CARDIAC: Regular rate and rhythm lymphedema
LUNGS: Clear breath sounds bilaterally, no acute respiratory distress, no wheezes/rales/rhonchi
ABDOMEN: Soft, without focal tenderness, no r/g, no cvat, normal bowel sounds, nondistended
NEUROLOGICAL: Alert and oriented, no focal neuro deficits, CN intact, 5/5 strength, sensation intact, ambulation slight limp left leg
SKIN: Warm and dry,
MUSCULOSKELETAL: moderate lymphedema, venous stasis dermatitis/minial pink changes to skin but without significant cellulitis
Back: no midline tenderness
painful ROM, flexion but is able to sit himself up in bed without assistance
he looks in no pain at rest
moving legs well
has chronic foot drop R
PSYCH: Normal and appropriate interaction.
Course
Orders/Labs/Results
Orders:
Orders
08/16/24 12:14
HYDROmorphone [Dilaudid] 0.5 mg IV NOW STA
Lumbar Spine Complete, 4 View [CR Lumbar Spine Comp Min 4 Vw*] Urgent
Comment:
Reason For Exam: lower back pain, no trauma
08/16/24 12:20
Electrocardiogram (*1) Urgent
Reason for Study: Abdominal Pain
EKG- Treatment ONCE
08/16/24 12:33
Urinalysis Reflex To Culture Urgent
Date Specimen was Collected: 08/16/24
Time Specimen was Collected: 12:28
08/16/24 13:03
Basic Metabolic Panel Urgent
Complete Blood Count/With Diff Urgent
Lipase Urgent
08/16/24 14:58
Dexamethasone Sod Phosphate [Decadron] 10 mg IV NOW STA
Oxycodone [Roxicodone] 5 mg PO NOW STA
PT Consult [Pt Eval And Treat] Urgent
Activity Level: Ambulate
08/16/24 15:46
Admit/Transfer Patient As Directed
Co-Sign Provider:
Level of Care: Inpatient admission
Assign to:: Medical/Surgical
Physician / Group: Hospitalist
Diagnosis: Back pain
Reason for Hospitalization: .
Expected length of stay greater than two midnights?: Yes
ELOS- Estimated Length of Stay in days: 3
I certify the patient meets the requirements for IP care: Yes
08/16/24 15:47
PRN Pain Medication Management As Directed
May give lesser potent ordered pain med per pt: Yes
preference::
Protocol:: Medication orders for pain may be administered in a
manner that supports deferring to patient preference
when the pt is:
- Requesting an ordered lesser potent pain medication.
Least to most potent pain medications are defined
as: acetaminophen < NSAID < tramadol < opioids
(morphine, oxycodone, hydromorphone).
- Requesting a lesser dose of the same medication IF
ORDERED.
- Requesting a less intrusive route of administration
if both routes are prescribed by the provider (PO <
IV).
08/16/24 16:07
Potassium Stat
08/16/24 20:00
Apixaban [Eliquis] 5 mg PO BID
Abnormal Lab Results
08/16/24
13:03
RBC 4.04 L 10^6/uL
(4.70-6.10)
Hgb 12.8 L g/dL
(13.0-18.0)
Hct 38.2 L %
(39.0-52.0)
MCV 94.6 H fL
(80.0-94.0)
MCH 31.7 H pg
(27.0-31.0)
RDW 15.0 H %
(11.5-14.5)
Plt Count 118 L 10^3/uL
(130-400)
Abs Immat Gran (auto) 0.1 H 10^3/uL
(0-0.05)
Absolute Lymphs (auto) 0.6 L 10^3/uL
(1.2-3.4)
Absolute Monos (auto) 1.0 H 10^3/uL
(0.1-0.6)
Immature Gran % 1.1 H %
(0-0.5)
Neutrophils % 75.3 H %
(42.2-75.2)
Lymphocytes % 8.1 L %
(20.5-51.1)
Monocytes % 14.0 H %
(1.7-9.3)
BUN 29 H mg/dl
(9-20)
Glucose 115 H mg/dl
(70-99)
08/16/24 13:03
08/16/24 16:07
Vital Signs
Initial and Last Documented VS:
Initial Vital Signs
Temp Pulse Resp BP Pulse Ox
36.9 C 80 18 147/57 97
08/16/24 11:20 08/16/24 11:20 04/16/25 11:20 08/16/24 11:20 08/16/24 11:20
Last Documented Vital Signs
Temp Pulse Resp BP Pulse Ox
37.2 C 72 20 143/74 98
08/16/24 17:45 08/16/24 17:45 08/16/24 17:45 08/16/24 17:45 08/16/24 17:45
MDM/Problems Addressed
Differential Diagnosis Includes:
chronic ambulatory dysfunction, lower back pain, uti
MDM/Problems Addressed:
earnest wells 79 y/o M
previous CVA with R foot drop, AF eliquis, orthostasis midodrine, CHF lasix
has had mutiple admissions for back pain/weakness
this back pain is acute on chronic lower back pain nonradiating causing severe pain with ambulation; no new weakness in legs, no sensory deficit; has chronic stimulator for bladder incontinence that is chronic; previous remote spinal stenosis surgery
on exam looks comfortable; moving legs easily; but pain with any movement and not able to ambulate safely despite multiple pain meds and Pt eval;
daughter is [place]; i spoke with her earlier on the phone
lumbar xrays neg; i will CT the spine to be srue no new comp fracture we are missing; no concerns for cauda equina
*Critical Care Note
Total Time (30-74mins, 75-104mins- exclusive of procedures): Not Applicable
ED Attending Note
-
Portions of this chart may have been created with voice recognition software.� Occasional wrong word or��sound alike� substitutions may have occurred due to the inherent limitations of voice recognition software.
Discharge Plan
Departure
Patient Disposition: Admit
Date of Disposition: 08/16/24
Time of Disposition: 15:38
Admit to: Med/Surg
Presentation/result/management discussed w/ accepting MD/DO: Hospitalist
Condition: Fair
Covid-19: Not Applicable
Discharge Problem:
Chronic lower back pain, Ambulatory dysfunction
Interventions
Interventions:
*Risk Screen - Suicide Last Done: 08/16/24 11:20
*General Assessment Last Done: 08/16/24 12:13
*Neglect/Abuse Screening Last Done: 08/16/24 11:20
*ED- Fall Risk Assessment Last Done: 08/16/24 12:13
*ED COVID-19 Vaccine History Last Done: 08/16/24 12:13
*Nursing Disposition Last Done: 08/16/24 17:25
ED-Musculoskeletal Assessment Last Done: 08/16/24 12:13
Discharge Date and Time
Discharge Date/Time: 08/16/24 17:25
--- NOTE | 2024-08-16 12:28 | EDRN ---
Unable to get IV access at this time w/ IV VAT RN paged.
[2024-08-16 12:50] LABS: Urine Albumin Negative (Neg - Trace); Urine Bilirubin Negative (Negative); Urine Character Clear (Clear); Urine Color Yellow; Urine Glucose Negative (Negative); Urine Ketone Negative (Negative); Urine Leukocyte Negative (Negative); Urine Nitrite Negative (Negative); Urine Occult Blood Negative (Negative); Urine Urobilinogen Negative (Neg - 1+)
--- NOTE | 2024-08-16 13:10 | EDRN ---
Caregiver left at this time. He said to call daughter if needed for any information or questions on pt.
[2024-08-16] MEDS: DILAUDID 0.5 MG IV (13:11)
[2024-08-16 13:20] LABS: % Basophils 0.4 % (0-2); % Eosinophils 1.1 % (0-6); % Immature Granulocytes 1.1 % (0-0.5); % Lymphocytes 8.1 % (20.5-51.1); % Neutrophils 75.3 % (42.2-75.2); Absolute Eosinophils 0.1 10^3/uL (0-0.7); Absolute Immature Granulocytes 0.1 10^3/uL (0-0.05); Absolute Lymphocytes 0.6 10^3/uL (1.2-3.4); Absolute Neutrophils 5.6 10^3/uL (1.4-6.5); Hematocrit 38.2 % (39.0-52.0); Hemoglobin 12.8 g/dL (13.0-18.0); Mean Corp Hgb Conc. 33.5 g/dL (33.0-37.0); Mean Corpuscular Hgb 31.7 pg (27.0-31.0); Mean Corpuscular Volume 94.6 fL (80.0-94.0); Mean Platelet Volume 9.9 fL (7.4-10.4); Nucleated Red Blood Cells % 0 % (-); Platelet Count 118 10^3/uL (130-400); Red Blood Cell Count 4.04 10^6/uL (4.70-6.10); White Blood Cell Count 7.4 10^3/uL (4.8-10.8)
[2024-08-16 13:33] LABS: Blood Urea Nitrogen 29 mg/dl (9-20); Carbon Dioxide 29 mmol/L (22-30); Chloride 104 mmol/L (98-107); Estimated Creatinine Clearance 87 ml/min; Glucose 115 mg/dl (70-99); Lipase 78 U/L (23-300); Sodium 140 mmol/L (135-145); eGFR > 60.00
--- NOTE | 2024-08-16 14:04 | EDRN ---
Pt states pain remains 10/10 at this time.
--- NOTE | 2024-08-16 14:49 | EDRN ---
Pt is awaiting a PT evaluation at this time.
[2024-08-16] MEDS: ROXICODONE 5 MG PO (15:19)
--- NOTE | 2024-08-16 15:36 | EDRN ---
Pt stated that pt was jerking walker, holding hands in fists and attempting to decrease pain in back, squinching face in pain, holding his breath etc. PT said pt is very unsafe when ambulating. Zakiya TERRY was informed via TT.
[2024-08-16] MEDS: DECADRON 10 MG IV (15:45)
--- NOTE | 2024-08-16 15:50 | EDRN ---
Dr. Dozier in room w/pt at this time.
--- NOTE | 2024-08-16 15:53 | PHANOTE ---
med rec note- patient does not know this medication some he does but feel like patient just saying to yes to my question, asked him about directions and he does not know
--- NOTE | 2024-08-16 16:09 | EDRN ---
Ordered Nikki redrawn and sent at this time.
--- NOTE | 2024-08-16 16:18 | HPS.HSE ---
Family Physician
-
Family Physician: William Renner
Chief Complaint
-
Back pain
History of Present Illness
79 years old male came in from home. History taken from family and patient. Patient has been having worsening back pain last a few days. Unable to ambulate at home. Was using oxycodone but caused more a problem to his mental function. Patient
has underlying dementia. He was following with Dr. Lopez for pain control and received injection. Pain did not improve and family was taking him to another doctor with the [facility] [employer] system. No fever. No chills. No urinary incontinence. No
bowel incontinence. No numbness in lower extremity. 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
Medical History
Past Medical History
Past Medical History: Reports Other (Hypertension, hyperlipidemia, CAD, diabetes, obstructive sleep apnea, BPH, cataracts, chronic back pain, stroke, dementia, gait dysfunction, lymphedema, atrial fibrillation, thrombocytopenia, orthostatic
hypotension)
Past Surgical History: Reports Other (No recent major surgery)
Social History
Tobacco: Former Smoker
Alcohol: Occasional
Drug: None
Living: Other (Home with caregiver)
Family History
Family History: Not pertinent
Allergies / Home Medications
Allergies reflects when Allergies were last updated in [employer].
Home Medications with original date entered in [employer]
Allergy/Medication List:
Allergies
Allergy/AdvReac Type Severity Reaction Status Date / Time
meperidine HCl [From Demerol] Allergy gets hyper Verified 08/16/24 11:19
ondansetron [From Zofran] Allergy N/V Verified 08/16/24 11:19
Home Medications
apixaban 5 mg tablet (Eliquis) 5 mg PO BID Blood Clot Prevention/Tx #60 tabs 05/21/23
cholecalciferol (vitamin D3) 25 mcg (1,000 unit) tablet (Vitamin D3) 25 mcg PO QPM Supplement 04/22/24
pravastatin 40 mg tablet 40 mg PO QPM High Cholesterol 04/22/24
vibegron 75 mg tablet (Gemtesa) 75 mg PO DAILY Urinary Issue 04/22/24
ferrous sulfate 325 mg (65 mg iron) tablet 325 mg PO DAILY Supplement 06/07/24
gabapentin 300 mg capsule 300 mg PO BID Neurological Condition 06/07/24
metformin 500 mg tablet 500 mg PO BID Diabetes 06/30/24
cephalexin 500 mg capsule 500 mg PO QID 5 days #20 caps 07/27/24
fludrocortisone 0.1 mg tablet 0.1 mg PO DAILY 30 days #30 tabs 07/27/24
furosemide 20 mg tablet 40 mg (2 x 20 mg) PO DAILY 30 days #60 tabs 07/27/24
tamsulosin 0.4 mg capsule (Flomax) 0.4 mg PO QPM Urinary Issue #7 caps 07/27/24
tiotropium bromide 2.5 mcg/actuation mist for inhalation (Spiriva Respimat) 2 puff inhalation R DAILY #4 grams 07/27/24
midodrine 5 mg tablet 5 mg PO TID@0800,1200,1600 30 days #90 tabs 07/28/24
albuterol sulfate 90 mcg/actuation aerosol inhaler 2 puff inhalation R Q6HPRN PRN shortness of breath or wheezing 08/16/24
digoxin 125 mcg (0.125 mg) tablet 125 mcg PO DAILY 08/16/24
tramadol 50 mg tablet 50 mg PO Q8HPRN PRN moderate pains 08/16/24
Review of Systems
-
History Source: Patient
A 12 point ROS was completed and negative except as noted: Yes
Constitutional: Denies Fever
EENT: Denies Sore Throat
Respiratory: Denies Cough
Cardiac: Denies Chest Pain
Abdomen/GI: Denies Abdominal Pain
: Denies Dysuria, Frequency or Difficulty Voiding
Musculoskeletal: Reports Other (Back pain)
Skin: Denies Itching or Rash
Neurological: Denies Numbness
Endocrine: Denies Temp Intolerance
Hematologic/Lymphatic: Denies Bruising
Psych: Denies Panic Disorder
Physical Exam
Vital Signs
Vital Signs
Temp Pulse Resp BP Pulse Ox
98.5 F 62 18 127/67 96
08/16/24 11:20 08/16/24 15:01 08/16/24 15:01 08/16/24 15:01 08/16/24 15:01
Physical Exam
General: No Apparent Distress and Comfortable
HEENT: Moist mucous membranes and Atraumatic
Respiratory: Clear
Cardiac: S1/S2
GI: Soft and Non Tender
Genito-urinary: No costovertebral tender; No White
Musculoskeletal: Edema, Left Lower Extremity and Edema, Right Lower Extremity
Skin: No Jaundice
Neuro: Awake and Oriented
Psych: Agitated and Apparent Dementia
Laboratory Results
-
08/16/24 13:03
Laboratory Results
Total Bilirubin Cancelled 08/16/24 13:03
AST Cancelled 08/16/24 13:03
ALT Cancelled 08/16/24 13:03
Alkaline Phosphatase Cancelled 08/16/24 13:03
Lipase 78 U/L (23-300) 08/16/24 13:03
Impression/Plan
-
79-year-old male presenting with acute on chronic back pain
#Acute on chronic back pain/lumbar spinal stenosis/degenerative joint disease
Gait dysfunction
Admit the patient to the hospital
Start the patient on pain management with Tylenol [id number] and as needed oxycodone. Patient tolerated oxycodone but impacted his dementia, will avoid frequent use
Unable to do nonsteroidal anti-inflammatory drugs due to use of Eliquis
No warning sign including urinary/stool incontinence, no fever, no chills, normal white blood cell count
X-ray no acute fracture
Family and patient requested MR study as recommended by his primary orthopedic service
Patient saw Dr. Lopez at [facility] and received treatments.
Consult orthopedic doctor
#Chronic LE Lymphedema
Currently receiving oral cephalexin for 10 days course, will finish treatment
Redness right lower extremities more than the left. No tenderness on examination
- On daily Keflex for suppression.
- Lymphedema therapies including compression, elevation, etc.
History of coronary artery disease
Benign Hypertension
- Stable. Denies CP / SOB / etc.
- Continue Eliquis.
Paroxysmal Atrial Fibrillation
- Continue current medications for now including digoxin, Eliquis.
DM-II
- Follow glucose for now and cover with SSI as needed.
#Chronic HFpEF,
- Lasix 40mg daily
- Follow I/Os, daily weights, LE edema and dyspnea.
BETSEY
BPH / OAB
Monitor for retention.
- s/p bladder stimulator implant June 2024.
Orthostatic Hypotension
- Continue current midodrine / Florinef.
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
Ambulatory Dysfunction secondary to the above
- Stable. Use boot / brace for ambulation.
- PT / OT evals.
Chronic Thrombocytopenia
- No evidence of active bleeding.
- Follow for any obvious bleeding or significant changes in cell counts.
Senile Dementia
- Patient awake and alert and interactive. Answers questions without obvious confusion but
DVT Prophylaxis: On Eliquis
Code Status: Full
Total time spent to see the patient, examine the patient, review data and lab result, discussed treatment plan with patient, daughters, ER doctor, nursing staff around 75 minutes
[2024-08-16 16:24] LABS: Potassium 4.2 mmol/L (3.5-5.1)
--- NOTE | 2024-08-16 16:59 | EDRN ---
pt in a lot of pain and not due for pain med at this time. pt assisted to recliner chair and set up w/ boxed lunch at this time.
--- NOTE | 2024-08-16 17:25 | EDRN ---
Pt ate 100% of boxed lunch.
[2024-08-16] MEDS: KEFLEX 500 MG PO ×2 (17:37→20:28)
[2024-08-16] MEDS: GLUCOPHAGE 500 MG PO (17:37)
[2024-08-16] MEDS: FLOMAX 0.4 MG PO (17:48)
[2024-08-16 17:49] LABS: Glucose - Point of Care 199 mg/dl (70-99)
[2024-08-16] MEDS: NEURONTIN 300 MG PO (20:28)
[2024-08-16] MEDS: ELIQUIS 5 MG PO (20:28)
[2024-08-16] MEDS: TYLENOL 1000 MG PO (20:28)
[2024-08-16 22:34] LABS: Glucose - Point of Care 259 mg/dl (70-99)
[2024-08-17 05:47] VITALS: BMI 31.7
[2024-08-17 06:00] VITALS: BMI 31.7
[2024-08-17 07:35] VITALS: BP 117/66
[2024-08-17] MEDS: SPIRIVA RESPIMAT 2.5 MCG 2 PUFF INH (07:50)
[2024-08-17] MEDS: ProAmatine 5 MG PO ×3 (08:14→15:44)
[2024-08-17] MEDS: NEURONTIN 300 MG PO ×2 (08:14→21:09)
[2024-08-17] MEDS: KEFLEX 500 MG PO ×4 (08:14→21:08)
[2024-08-17] MEDS: LASIX 40 MG PO (08:14)
[2024-08-17] MEDS: TYLENOL 1000 MG PO ×3 (08:14→21:08)
[2024-08-17] MEDS: FLORINEF 0.1 MG PO (08:14)
[2024-08-17] MEDS: GLUCOPHAGE 500 MG PO ×2 (08:14→17:19)
[2024-08-17] MEDS: ELIQUIS 5 MG PO ×2 (08:14→21:09)
--- NOTE | 2024-08-17 08:58 | VNURNOTE ---
Chart reviewed. Patient is current with [facility] nursing, PT, OT. Will continue to follow hospital course and DC plans.
--- NOTE | 2024-08-17 09:08 | W.PN.HOSP.TC ---
Today's Communication/Plan
-
MRI back
f/w Ortho recommendations ( daughter requested a call after seeing the patient)
Assessment / Plan
Assessment / Plan
Physical Exam
General: No Apparent Distress and Comfortable
HEENT: Moist mucous membranes and Atraumatic
Respiratory: Clear
Cardiac: S1/S2
GI: Soft and Non Tender
Genito-urinary: No costovertebral tender; No White
Musculoskeletal: Edema, Left Lower Extremity and Edema, Right Lower Extremity
Skin: No Jaundice
Neuro: Awake and Oriented
Psych: Agitated and Apparent Dementia
79-year-old male presenting with acute on chronic back pain
#Acute on chronic back pain/lumbar spinal stenosis/degenerative joint disease
Gait dysfunction
Unable to do nonsteroidal anti-inflammatory drugs due to use of Eliquis
Less back pain this morning
c/w current regimen of Tylenol ATC, gabapentin
PRN Oxycodone
No warning sign including urinary/stool incontinence, no fever, no chills, normal white blood cell count
X-ray no acute fracture
Family and patient requested MR study as recommended by his primary orthopedic service
Patient saw Dr. Lopez at [facility] and received treatments.
Consulted orthopedic doctor
#Chronic LE Lymphedema
Currently receiving oral cephalexin for 10 days course, will finish treatment
Redness right lower extremities more than the left. No tenderness on examination
- On daily Keflex for suppression.
- Lymphedema therapies including compression, elevation, etc.
History of coronary artery disease
Benign Hypertension
- Stable. Denies CP / SOB / etc.
- Continue Eliquis.
Paroxysmal Atrial Fibrillation
- Continue current medications for now including digoxin, Eliquis.
DM-II
- Follow glucose for now and cover with SSI as needed.
#Chronic HFpEF,
- Lasix 40mg daily
- Follow I/Os, daily weights, LE edema and dyspnea.
BETSEY
BPH / OAB
Monitor for retention.
- s/p bladder stimulator implant June 2024.
Orthostatic Hypotension
- Continue current midodrine / Florinef.
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
Ambulatory Dysfunction secondary to the above
- Stable. Use boot / brace for ambulation.
- PT / OT evals.
Chronic Thrombocytopenia
- No evidence of active bleeding.
- Follow for any obvious bleeding or significant changes in cell counts.
Senile Dementia
- Patient awake and alert and interactive. Answers questions without obvious confusion but
DVT Prophylaxis: On Eliquis
Code Status: Full
Total time spent to see the patient, examine the patient, review data and lab result, discuss treatment plan with patient, nursing staff around 55 minutes
Anticipated Discharge: 24 - 48 hours
Subjective/Interval History
-
Date of Service: August 17, 2024
No chest pain
no sob
Less back pain
Objective Data
-
Vital Signs:
Vital Signs
Temp Pulse Resp BP Pulse Ox
97.6 F 85 16 117/66 98
08/17/24 07:35 08/17/24 07:53 08/17/24 07:53 08/17/24 07:35 08/17/24 07:53
I&O
08/16/24 08/17/24 08/18/24
06:59 06:59 06:59
Intake Total 440 / 440
Output Total 2700 / 2700
Balance -2260 / -2260
--- NOTE | 2024-08-17 11:11 | WOUNDNOTE ---
[facility] RN NOTE: Reviewed chart and met with patient. Patients sacrum and feet are intact, heels are blanchable. Patient demonstrated ability to stand and ambulate with walker. He is in a [facility] and reports good appetite. Will sign off. RN
Luis A made aware.
[2024-08-17 11:44] VITALS: BP 131/79
[2024-08-17] MEDS: LANOXIN 125 MCG PO (11:49)
[2024-08-17 13:02] VITALS: BP 126/67; PULSE 61; O2SAT 98
--- NOTE | 2024-08-17 15:14 | CM ---
Chart reviewed and jonathan has been cleared for discharge today, patient lives with spouse is independent with adl's and uses a walker with ambulation.
PCP: William Renner
Pharmacy: [facility]
Plan; Home today no needs. IMM given on 08/16/24
[2024-08-17 15:59] VITALS: BP 118/70
[2024-08-17] MEDS: FLOMAX 0.4 MG PO (17:19)
--- NOTE | 2024-08-17 18:19 | CON.ORTHO ---
Consultation - Orthopedics
History
HPI: Presented to the emergency department complaints of acute on chronic lumbar back pain. He was subsequently admitted to the hospitalist service. Orthopedics was consulted for further evaluation and treatment. Patient reports to me this
evening that he had worsening of his baseline lumbar back pain. Reports that chiefly his complaint is low back pain. He does note some numbness in his bilateral lower extremities that he reports is essentially his baseline. He is currently
denying any radiating pain down his leg and localizes all of his pain to 'the small of his back'. He has been seen by multiple orthopedic providers on an outpatient basis. He has remote history of lumbar spine surgery. He has remote history of
injections lumbar spine. He was seen most recently outpatient basis in April and MRI had been ordered. He reports that he lives at home with his and uses a walker for ambulatory assistance at baseline.
Allergies / Home Medications
Past medical history: Hypertension, hyperlipidemia, coronary artery disease, diabetes, BPH, chronic lumbar back pain, A-fib
Past surgical history: Lumbar spine surgery
Social history: Former smoker, lives at home
Family history: Not pertinent
Allergy/AdvReac Type Severity Reaction Status Date / Time
meperidine HCl [From Demerol] Allergy gets hyper Verified 08/16/24 11:19
ondansetron [From Zofran] Allergy N/V Verified 08/16/24 11:19
�Medication �Instructions �Recorded
apixaban 5 mg tablet (Eliquis) 5 mg PO BID Blood Clot 05/21/23
Prevention/Tx #60 tabs
cholecalciferol (vitamin D3) 25 25 mcg PO QPM Supplement 04/22/24
mcg (1,000 unit) tablet (Vitamin
D3)
pravastatin 40 mg tablet 40 mg PO QPM High Cholesterol 04/22/24
vibegron 75 mg tablet (Gemtesa) 75 mg PO DAILY Urinary Issue 04/22/24
ferrous sulfate 325 mg (65 mg 325 mg PO DAILY Supplement 06/07/24
iron) tablet
gabapentin 300 mg capsule 300 mg PO BID Neurological 06/07/24
Condition
metformin 500 mg tablet 500 mg PO BID Diabetes 06/30/24
cephalexin 500 mg capsule 500 mg PO QID 5 days #20 caps 07/27/24
fludrocortisone 0.1 mg tablet 0.1 mg PO DAILY 30 days #30 tabs 07/27/24
furosemide 20 mg tablet 40 mg (2 x 20 mg) PO DAILY 30 days 07/27/24
#60 tabs
tamsulosin 0.4 mg capsule (Flomax) 0.4 mg PO QPM Urinary Issue #7 caps 07/27/24
tiotropium bromide 2.5 2 puff inhalation R DAILY #4 grams 07/27/24
mcg/actuation mist for inhalation
(Spiriva Respimat)
midodrine 5 mg tablet 5 mg PO TID@0800,1200,1600 30 days 07/28/24
#90 tabs
albuterol sulfate 90 mcg/actuation 2 puff inhalation R Q6HPRN PRN 08/16/24
aerosol inhaler shortness of breath or wheezing
digoxin 125 mcg (0.125 mg) tablet 125 mcg PO DAILY Arrhythmia 08/16/24
tramadol 50 mg tablet 50 mg PO Q8HPRN PRN moderate pains 08/16/24
Vital Signs / Lab Results
Temp Pulse Resp BP Pulse Ox
98.0 F 61 18 118/70 100
08/17/24 15:59 08/17/24 15:59 08/17/24 15:59 08/17/24 15:59 08/17/24 15:59
08/16/24 13:03
08/16/24 16:07
10 point review systems reviewed and negative unless otherwise stated
General: Conversant, no acute distress seated comfortably in bed
Musculoskeletal
No significant tenderness palpation midline lumbar spine or paralumbar soft tissues today, no tenderness palpation of gluteal soft tissues
No tenderness palpation over lateral trochanteric flare groin right hip
No pain with passive internal ex rotation of right hip
Patient with good strength symmetric bilateral lower extremities with exception of right ankle dorsiflexion and EHL which she reports is baseline
Sensation is somewhat altered over the dorsum of his foot but otherwise is intact and equal bilateral lower extremities
No reproducible radicular symptoms with straight leg raise test
+1 patella tendon reflexes equal bilateral lower extremity
Diagnostic studies
X-rays lumbar spine taken during this hospitalization reviewed by myself. There is evidence of multilevel degenerative disc disease with associated facet arthrosis. Multiple anterior osteophyte complexes noted. Radiologist notes mild L2 on L3
retrolisthesis
Assessment / Plan
79-year-old male acute on chronic lumbar back pain history in setting of lumbar DDD. I do long discussion with the patient. Also called and spoke with daughter at his request. Patient is scheduled to get an MRI this evening. Hopefully this will
better elucidate lumbar spine pathology. Explained to him would recommend pain control mobilization with physical therapy and close outpatient follow-up with previously established spine team. Certainly they can have further discussion with him
regarding the findings of lumbar spine MRI with consideration for potential injection therapy. I explained him there will be no plans for acute orthopedic intervention during this hospitalization and he stated his understanding to this. This was
also explained in detail to the patient's daughter who had actually already spoken with his outpatient spine team. After MRI would recommend again outpatient follow-up. Please reach out any questions or concerns.
Weightbearing as tolerated bilateral lower extremities
PT OT
Pain control
Medical management per primary team
Plan: Follow-up outpatient with previous established spine team to discuss MRI results and treatment implications.
[2024-08-17 23:18] VITALS: BP 122/68
[2024-08-18 05:42] VITALS: BMI 31.5
[2024-08-18 07:51] VITALS: BP 133/74
[2024-08-18] MEDS: SPIRIVA RESPIMAT 2.5 MCG 2 PUFF INH (08:01)
[2024-08-18] MEDS: ELIQUIS 5 MG PO (08:02)
[2024-08-18] MEDS: GLUCOPHAGE 500 MG PO (08:02)
[2024-08-18] MEDS: TYLENOL 1000 MG PO (08:02)
[2024-08-18] MEDS: NEURONTIN 300 MG PO (08:03)
[2024-08-18] MEDS: ProAmatine 5 MG PO ×2 (08:03→11:50)
[2024-08-18] MEDS: KEFLEX 500 MG PO ×2 (08:03→12:16)
[2024-08-18] MEDS: LASIX 40 MG PO (08:03)
[2024-08-18] MEDS: FLORINEF 0.1 MG PO (08:03)
--- NOTE | 2024-08-18 08:57 | PN.CDI ---
CDI
- -
CDI:
Physician Documentation Request
Admit Date: 08/16/24 16:08
Dear Doctor Tasia,
Please review the following and provide your response in the progress notes.
Clinical Indicators:
- RN skin assessments indicate DTI sacrum, POA
Physician documentation of the type and location of wounds is required for compliant documentation. Based on the above clinical findings and your assessment, please provide the following in your progress note:
1. Location of the ulcer/wound, including laterality.
2. Type (etiology) of ulcer/wound:
- Diabetic ulcer
- Arterial (ischemic) ulcer
- Pressure (decubitus) ulcer
- Other
Use of terms such as suspected, likely, concern for, or probable (associated with a specific diagnosis that is being evaluated, monitored, or treated as if it exists) are acceptable and can be coded in the inpatient setting, when documented at the
time of discharge.
Thank you,
Melvin Tucker RN
CDI Specialist
Please use your independent medical judgment in providing your response.
*Source: National Pressure Ulcer Advisory Panel (NPUAP)
--- NOTE | 2024-08-18 09:01 | W.PN.HOSP.TC ---
Today's Communication/Plan
-
discharge
Assessment / Plan
Assessment / Plan
Physical Exam
General: No Apparent Distress and Comfortable
HEENT: Moist mucous membranes and Atraumatic
Respiratory: Clear
Cardiac: S1/S2
GI: Soft and Non Tender
Genito-urinary: No costovertebral tender; No White
Musculoskeletal: Edema, Left Lower Extremity and Edema, Right Lower Extremity
Skin: No Jaundice
Neuro: Awake and Oriented
Psych: Agitated and Apparent Dementia
79-year-old male presenting with acute on chronic back pain
#Acute on chronic back pain/lumbar spinal stenosis/degenerative joint disease
Gait dysfunction
Unable to do nonsteroidal anti-inflammatory drugs due to use of Eliquis
Less back pain and responding well to Tylenol
c/w current regimen of Tylenol ATC, gabapentin
PRN Oxycodone
No warning sign including urinary/stool incontinence, no fever, no chills, normal white blood cell count
X-ray no acute fracture
MR Lumbar showed: Chronic degenerative and postoperative changes of the lumbar spine. Severe spinal canal stenoses at the L2-L3 and L3-L4 levels. Moderate spinal canal stenosis at L4-L5. Varying degrees of chronic multilevel bilateral neuroforaminal
stenosis, overall most severe on the left at L2-L3 and on the left at L4-L5. Worsening left-sided neuroforaminal stenosis at L4-L5 compared to the previous lumbar spine MRI from 05/10/2019. Other degenerative findings appear essentially unchanged.
Patient saw Dr. Lopez at [facility] and received treatments.
Consulted orthopedic doctor, appreciate help.
# PAD
Pt sees dr Mccarty, requested to do US study
#Chronic LE Lymphedema
Currently receiving oral cephalexin for 10 days course, will finish treatment
Redness right lower extremities more than the left. No tenderness on examination
- On daily Keflex for suppression.
- Lymphedema therapies including compression, elevation, etc.
History of coronary artery disease
Benign Hypertension
- Stable. Denies CP / SOB / etc.
- Continue Eliquis.
Paroxysmal Atrial Fibrillation
- Continue current medications for now including digoxin, Eliquis.
DM-II
- Follow glucose for now and cover with SSI as needed.
#Chronic HFpEF,
- Lasix 40mg daily
- Follow I/Os, daily weights, LE edema and dyspnea.
# DTI sacrum, POA
#BETSEY
BPH / OAB
Monitor for retention.
- s/p bladder stimulator implant June 2024.
Orthostatic Hypotension
- Continue current midodrine / Florinef.
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
Ambulatory Dysfunction secondary to the above
- Stable. Use boot / brace for ambulation.
- PT / OT evals.
Chronic Thrombocytopenia
- No evidence of active bleeding.
- Follow for any obvious bleeding or significant changes in cell counts.
Senile Dementia
- Patient awake and alert and interactive. Answers questions without obvious confusion but
DVT Prophylaxis: On Eliquis
Code Status: Full
Total discharge time spent to see the patient, examine the patient, review data and lab result, discuss discharge plan with patient, nursing staff around 65 minutes
Anticipated Discharge: Today
Subjective/Interval History
-
Date of Service: August 18, 2024
Objective Data
-
Vital Signs:
Vital Signs
Temp Pulse Resp BP Pulse Ox
97.7 F 80 16 133/74 98
08/18/24 07:51 08/18/24 08:02 08/18/24 08:02 08/18/24 07:51 08/18/24 07:51
I&O
08/17/24 08/18/24 08/19/24
06:59 06:59 06:59
Intake Total 440 / 440 840 / 840
Output Total 2700 / 2700 222 / 222
Balance -2260 / -226 -1385 / -1385
[2024-08-18 10:45] VITALS: BP 124/81; PULSE 75; O2SAT 100
[2024-08-18 11:14] VITALS: BMI 31.5
[2024-08-18] MEDS: LANOXIN 125 MCG PO (11:50)
--- NOTE | 2024-08-18 12:57 | CM ---
Chart reviewed and patient is for discharge to home today, patient to return to home with the resumption of care with [facility].
Plan; Home with [facility]
--- NOTE | 2024-08-18 14:16 | W.DCSUMMARY ---
Discharge Summary
Discharge Data
Date of Admission: 08/16/24
Date of Discharge: 08/18/24
-
Pending Results: No
Hospital Course
79 years old male who lives at home with caregiver was brought in for back pain. Patient was diagnosed with acute on chronic lumbar back pain. Patient has history of lumbar degenerative joint disease/ lumbar spinal stenosis. Patient did not have
fever or chills. No leukocytosis. He reported he was taking Tylenol but did not help. He had also tried narcotic in the past but caused some side effects. Patient did not have warning signs as numbness or bowel/urinary incontinence. X-ray of
the lumbar area did not show acute fracture. Patient was a placed on standing dose of Tylenol 1000 mg 3 times a day. He had normal liver function test. MRI of the lumbar area showed chronic degenerative and postoperative changes of the lumbar
spine, severe spinal stenosis at L 2/L3 and L3/L4 levels. Moderate spinal stenosis at L4/L5 with varying degrees of chronic multilevel bilateral neuroforaminal stenosis. Patient was seen by orthopedic doctor. Recommendation to continue with
physical therapy, pain control and outpatient follow-up with his [facility] spinal team. Patient had history of bilateral leg edema/lymphedema. He was seeing vascular surgery. He was maintained on Lasix. He did not have signs of acute infection.
Patient was finishing course of cephalexin that was giving to him on outpatient setting. Patient had right and left sided ultrasound that was sent to his primary vascular surgeon office Dr. Mccarty. Patient remained hemodynamically stable. He was
evaluated by physical therapy and PT recommended senior care facility placement. Discharge plan was discussed with his daughter GA Self. Due to patient cognitive issue and availability of care at home, she wanted patient to go back home
with caregiver. Patient was discharged in stable condition. Patient was given a prescription for tramadol to be used only as needed for severe discomfort.
Discharge Plan
-
Patient Disposition: Home with Home Care
Discharge Diagnosis/Procedures: Acute on chronic back pain
You are seen by orthopedic doctor. You had an MRI. You had ultrasound of lower extremity.
You are given Tylenol 3 times a day.
Diet: As tolerated
Referrals:
William Renner DO [Family Provider] -
Flavio Lopez MD [Non-Admitting Privileges] -
Prescriptions:
New
acetaminophen [Tylenol Extra Strength] 500 mg Tablet
1,000 mg PO TID Qty: 90 0RF
tramadol 50 mg tablet
50 mg PO BID PRN (Reason: severe pain) Qty: 10 0RF
Continued
Eliquis 5 mg Tablet
5 mg PO BID Qty: 60 0RF
pravastatin 40 mg Tablet
40 mg PO QPM
cholecalciferol (vitamin D3) [Vitamin D3] 25 mcg (1,000 unit) Tablet
25 mcg PO QPM
Gemtesa 75 mg Tablet
75 mg PO DAILY
gabapentin 300 mg capsule
300 mg PO BID
Rx Instructions:
as of 08/11/24 start bid for 1 week to wean off medication
ferrous sulfate 325 mg (65 mg iron) Tablet
325 mg PO DAILY
metformin 500 mg Tablet
500 mg PO BID
Spiriva Respimat 2.5 mcg/actuation Mist
2 puff inhalation R DAILY Qty: 4 0RF
furosemide 20 mg Tablet
40 mg PO DAILY 30 Days Qty: 60 0RF
fludrocortisone 0.1 mg Tablet
0.1 mg PO DAILY 30 Days Qty: 30 0RF
cephalexin 500 mg capsule
500 mg PO QID 5 Days Qty: 20 0RF
Rx Instructions:
for 10 days starting 08/10/24
tamsulosin [Flomax] 0.4 mg capsule
0.4 mg PO QPM Qty: 7 0RF
Rx Instructions:
may need to consider holding if drops in blood pressure
midodrine 5 mg Tablet
5 mg PO TID@0800,1200,1600 30 Days Qty: 90 0RF
Rx Instructions:
hold if SBP >160 or DBP >110
digoxin 125 mcg (0.125 mg) Tablet
125 mcg PO DAILY
albuterol sulfate 90 mcg/actuation HFA aerosol inhaler
2 puff inhalation R Q6HPRN PRN (Reason: shortness of breath or wheezing)
Discontinued
tramadol 50 mg Tablet
50 mg PO Q8HPRN PRN (Reason: moderate pains)
Discharge Orders:
Discharge Patient (As Directed); Ordered 08/18/24
Ordered By: Eden Dozier
Discharge Date and Time
Print Language: INDONESIAN
== END 2024-08-18 15:07 | disposition home health service (06) | DRG 552 ==
LOC: 4 WEST ACU 16:08
PROVIDERS: Physician Assistant; ADMITTING PHYSICIAN Internal Medicine; EMERGENCY PHYSICIAN Student in an Organized Health Care Education/Training Program; FAMILY PHYSICIAN Family Medicine; OTHER PHYSICIAN Orthopaedic Surgery
DX: M51.360 Other intervertebral disc degeneration, lumbar region with discogenic back pain only (principal); I50.32 Chronic diastolic (congestive) heart failure; M48.061 Spinal stenosis, lumbar region without neurogenic claudication; I11.0 Hypertensive heart disease with heart failure; I25.10 Atherosclerotic heart disease of native coronary artery without angina pectoris; G89.29 Other chronic pain; I69.398 Other sequelae of cerebral infarction; D69.6 Thrombocytopenia, unspecified; R26.89 Other abnormalities of gait and mobility; N40.1 Benign prostatic hyperplasia with lower urinary tract symptoms; K21.9 Gastro-esophageal reflux disease without esophagitis; I89.0 Lymphedema, not elsewhere classified; G47.33 Obstructive sleep apnea (adult) (pediatric); I95.1 Orthostatic hypotension; I48.0 Paroxysmal atrial fibrillation; N32.81 Overactive bladder; E11.51 Type 2 diabetes mellitus with diabetic peripheral angiopathy without gangrene; F03.A0 Unspecified dementia, mild, without behavioral disturbance, psychotic disturbance, mood disturbance, and anxiety; E78.00 Pure hypercholesterolemia, unspecified; M21.371 Foot drop, right foot; E11.42 Type 2 diabetes mellitus with diabetic polyneuropathy; L89.156 Pressure-induced deep tissue damage of sacral region; Z98.84 Bariatric surgery status; Z96.643 Presence of artificial hip joint, bilateral; Z96.651 Presence of right artificial knee joint; Z95.5 Presence of coronary angioplasty implant and graft; Z88.5 Allergy status to narcotic agent; Z87.891 Personal history of nicotine dependence; Z79.899 Other long term (current) drug therapy; Z79.01 Long term (current) use of anticoagulants; Z79.84 Long term (current) use of oral hypoglycemic drugs
CPT/HCPCS: 72110; 72158; 80048; 81003; 82962; 83690; 84132; 85025; 93005; 93922; 94640; 96374; 96375; 97116; 97166; 99285; A9575

== ENCOUNTER → 2024-08-26 10:40 | Outpatient (REF) | payer MEDICARE, OTHER, SELFPAY | LOC: RCS 10:40 | PROVIDERS: ATTENDING PHYSICIAN Nurse Practitioner Family; FAMILY PHYSICIAN Family Medicine | DX: R06.81 Apnea, not elsewhere classified (principal); R06.02 Shortness of breath | CPT/HCPCS: 71046; 93306 ==

== ENCOUNTER → 2024-11-11 11:02 | Outpatient (REF) | payer MEDICARE, OTHER, SELFPAY | LOC: RAD 11:02 | PROVIDERS: ATTENDING PHYSICIAN Internal Medicine Critical Care Medicine; FAMILY PHYSICIAN Family Medicine | DX: R91.1 Solitary pulmonary nodule (principal) | CPT/HCPCS: 71250 ==

== ENCOUNTER 2024-11-18 10:24 | Emergency (ER) | payer MEDICARE, OTHER, SELFPAY ==
[2024-11-18 10:40] VITALS: BP 118/69
[2024-11-18 11:09] LABS: Hematocrit 37.8 % (39.0-52.0); Hemoglobin 12.6 g/dL (13.0-18.0); Mean Corp Hgb Conc. 33.3 g/dL (33.0-37.0); Mean Corpuscular Volume 94.0 fL (80.0-94.0); Nucleated Red Blood Cells % 0 % (-); Platelet Count 127 10^3/uL (130-400); Red Cell Dist. Width 14.5 % (11.5-14.5)
[2024-11-18 11:20] LABS: ALT (SGPT) 33 U/L (0-50); AST (SGOT) 26 U/L (17-59); Albumin 3.9 g/dl (3.5-5.0); Alkaline Phosphatase 109 U/L (38-126); Blood Urea Nitrogen 22 mg/dl (9-20); Calcium 9.2 mg/dl (8.4-10.2); Carbon Dioxide 30 mmol/L (22-30); Chloride 101 mmol/L (98-107); Glucose 190 mg/dl (70-99); Potassium 4.1 mmol/L (3.5-5.1); Sodium 136 mmol/L (135-145); Total Protein 6.4 g/dl (6.3-8.2); eGFR > 60.00
--- NOTE | 2024-11-18 13:44 | ED.MUSCINJ ---
HPI-Injury
General
Chief Complaint: Extremity Pain (non-traumatic)
Source: patient
Time Seen by Provider: 11/18/24 13:19
History of Present Illness-Injury
Initial Injury comments:
79-year-old male presents complaint of increased numbness to the right lower leg from the knee down. He thinks this has been present for 3 days although his history is somewhat inconsistent. He denies headache chest pain right arm numbness. He
has a history of CVA causing a right sided foot drop. He is on Eliquis. He also has a history of neuropathy. He at one point had been on gabapentin but this was stopped secondary to increased swelling in the legs. He has a history of lymphedema.
No reported fever. He notes pain in the calf as well of the right leg. No known injury. No other complaints
Past History
Past History
ED Past Medical History: Arrthythmia (Atrial fibrillation), CAD, CHF, CVA (with right sided weakness), GERD, HTN, Hypercholesterolemia, NIDDM, NE, Psychiatric (Anxiety, Depression) and Other (GI bleed, GI stent, Orthostatic hypotension, Iron
deficiency anemia, Neuropathy, Sleep apnea, UTI, )
ED Past Surgical History: Cardiac (stent), Cholecystectomy, Orthopedic (Bilateral hip replacements, Left rotator cuff surgery, Right knee replacement) and Other (Gastric bypass)
Patient has exhibited threatening behavior?: No
PSI?: No
Social History
Tobacco: Former smoker
Alcohol: None
Drug: None
Personal:
Living: with family
Employment: Not employed
Family History
Family History: Other (Reviewed and Noncontributory)
Phy Exam
Physical Exam
Physical Exam:
General: Well-appearing male no acute respiratory distress
HEENT normocephalic face symmetric
Heart: Regular rate and rhythm.
Lungs: CTA bilateraly
Neurologic exam: Alert and oriented x 3 no facial asymmetry. There is a chronic right foot drop noted. He has good sensation to light touch to the right leg. He is able to straight leg raise the right leg. He is good strength to plantarflexion
of the right ankle.
Vascular: The right calf is slightly tender. He has a dopplerable pulse to the dorsal aspect of the right foot. The right foot is warm to the touch
Injury Course
Orders/Labs/Results
Orders:
Orders
11/18/24 10:[address] [CT Head W/o Iv Contrast] Urgent
Comment:
Reason For Exam: right leg numbness
11/18/24 10:51
CMP [Comprehensive Metabolic Panel] Urgent
Complete Blood Count/With Diff Urgent
11/18/24 13:32
Venous Doppler Lwr Ext Rt [US Perip Venous LOWER Ext RT] Urgent
Comment:
Reason For Exam: pain
Abnormal Lab Results
11/18/24
10:51
RBC 4.02 L 10^6/uL
(4.70-6.10)
Hgb 12.6 L g/dL
(13.0-18.0)
Hct 37.8 L %
(39.0-52.0)
MCH 31.3 H pg
(27.0-31.0)
Plt Count 127 L 10^3/uL
(130-400)
Absolute Lymphs (auto) 0.4 L 10^3/uL
(1.2-3.4)
Absolute Monos (auto) 0.9 H 10^3/uL
(0.1-0.6)
Neutrophils % 81.0 H %
(42.2-75.2)
Lymphocytes % 5.6 L %
(20.5-51.1)
Monocytes % 11.7 H %
(1.7-9.3)
BUN 22 H mg/dl
(9-20)
Glucose 190 H mg/dl
(70-99)
11/18/24 10:51
11/18/24 10:51
MDM/Problems Addressed
Differential Diagnosis Includes:
Right leg numbness with history of neuropathy and right foot drop. Per caregiver who is his neighbor but also is his caregiver most of the symptoms have been chronic. Patient's history is somewhat inconsistent. CT of the head was ordered through
triage which is negative for acute finding. Patient is on Eliquis and do not suspect DVT however given the calf tenderness and new pain will order ultrasound to evaluate for DVT.
*Pulse Oximetry
SaO2: 98
Oxygen Mode of Delivery: Room air
Patient hypoxic: no
*Critical Care Note
Total Time (30-74mins, 75-104mins- exclusive of procedures): Not Applicable
Update Note
Update Note:
Ultrasound negative for DVT. Patient reassured. Suspect worsening neuropathy. Advise he continue his current medication regimen and discussed with his doctor about restarting gabapentin. No indication for admission
ED Attending Note
-
Portions of this chart may have been created with voice recognition software.� Occasional wrong word or��sound alike� substitutions may have occurred due to the inherent limitations of voice recognition software.
Discharge Plan
Departure
Patient Disposition: Home (Routine Discharge)
Date of Disposition: 11/18/24
Time of Disposition: 17:39
Patient with high blood pressure during this ER visit?: No
Discharge Problem:
Paresthesia
Instructions: Peripheral neuropathy
Prescriptions:
No Action
Eliquis 5 mg Tablet
5 mg PO BID Qty: 60 0RF
pravastatin 40 mg Tablet
40 mg PO QPM
cholecalciferol (vitamin D3) [Vitamin D3] 25 mcg (1,000 unit) Tablet
25 mcg PO QPM
Gemtesa 75 mg Tablet
75 mg PO DAILY
gabapentin 300 mg capsule
300 mg PO BID
Rx Instructions:
as of 08/11/24 start bid for 1 week to wean off medication
ferrous sulfate 325 mg (65 mg iron) Tablet
325 mg PO DAILY
metformin 500 mg Tablet
500 mg PO BID
Spiriva Respimat 2.5 mcg/actuation Mist
2 puff inhalation R DAILY Qty: 4 0RF
furosemide 20 mg Tablet
40 mg PO DAILY 30 Days Qty: 60 0RF
fludrocortisone 0.1 mg Tablet
0.1 mg PO DAILY 30 Days Qty: 30 0RF
cephalexin 500 mg capsule
500 mg PO QID 5 Days Qty: 20 0RF
Rx Instructions:
for 10 days starting 08/10/24
tamsulosin [Flomax] 0.4 mg capsule
0.4 mg PO QPM Qty: 7 0RF
Rx Instructions:
may need to consider holding if drops in blood pressure
midodrine 5 mg Tablet
5 mg PO TID@0800,1200,1600 30 Days Qty: 90 0RF
Rx Instructions:
hold if SBP >160 or DBP >110
digoxin 125 mcg (0.125 mg) Tablet
125 mcg PO DAILY
albuterol sulfate 90 mcg/actuation HFA aerosol inhaler
2 puff inhalation R Q6HPRN PRN (Reason: shortness of breath or wheezing)
acetaminophen [Tylenol Extra Strength] 500 mg Tablet
1,000 mg PO TID Qty: 90 0RF
tramadol 50 mg tablet
50 mg PO BID PRN (Reason: severe pain) Qty: 10 0RF
Referrals:
William Renner DO [Family Provider, Family Practice]
Activity Restrictions/Additional Instructions:
Continue current medication regimen. Please follow-up with your doctor and consider restarting gabapentin. Return if needed otherwise
Interventions
Interventions:
*Risk Screen - Suicide Last Done: 11/18/24 10:40
*General Assessment Last Done: 11/18/24 10:40
Discharge Date and Time
Print Language: CITIZ[place]
[2024-11-18 14:00] VITALS: BP 136/85; BMI 27.4
== END 2024-11-18 18:11 | disposition home or self-care (01) ==
LOC: EMR 10:24
PROVIDERS: EMERGENCY PHYSICIAN Student in an Organized Health Care Education/Training Program; FAMILY PHYSICIAN Family Medicine
DX: R20.2 Paresthesia of skin (principal); R20.0 Anesthesia of skin; M79.604 Pain in right leg; I69.398 Other sequelae of cerebral infarction; M21.371 Foot drop, right foot; E11.40 Type 2 diabetes mellitus with diabetic neuropathy, unspecified; E78.00 Pure hypercholesterolemia, unspecified; G47.30 Sleep apnea, unspecified; I25.10 Atherosclerotic heart disease of native coronary artery without angina pectoris; I48.91 Unspecified atrial fibrillation; I11.0 Hypertensive heart disease with heart failure; I50.9 Heart failure, unspecified; K21.9 Gastro-esophageal reflux disease without esophagitis; F41.9 Anxiety disorder, unspecified; F32.A Depression, unspecified; I89.0 Lymphedema, not elsewhere classified; D50.9 Iron deficiency anemia, unspecified; I25.2 Old myocardial infarction; Z79.01 Long term (current) use of anticoagulants; Z79.84 Long term (current) use of oral hypoglycemic drugs; Z96.643 Presence of artificial hip joint, bilateral; Z87.440 Personal history of urinary (tract) infections; Z95.5 Presence of coronary angioplasty implant and graft; Z96.651 Presence of right artificial knee joint; Z87.891 Personal history of nicotine dependence; Z98.84 Bariatric surgery status; Z88.5 Allergy status to narcotic agent; Z88.8 Allergy status to other drugs, medicaments and biological substances
CPT/HCPCS: 99284; 70450; 80053; 85025; 93971

== ENCOUNTER 2024-11-22 11:11 | Outpatient (RCR) | payer SELFPAY | END 2024-11-22 23:59 | disposition home or self-care (01) | LOC: RPT 11:11 | PROVIDERS: ATTENDING PHYSICIAN Student in an Organized Health Care Education/Training Program; FAMILY PHYSICIAN Family Medicine | DX: I89.0 Lymphedema, not elsewhere classified (principal); Z73.6 Limitation of activities due to disability; R26.2 Difficulty in walking, not elsewhere classified; M54.9 Dorsalgia, unspecified; R26.89 Other abnormalities of gait and mobility; G89.29 Other chronic pain | CPT/HCPCS: 97110; 97140; 97164; 97530 ==

== ENCOUNTER 2024-12-08 11:07 | Outpatient (RCR) | payer OTHER, SELFPAY | END 2024-12-08 23:59 | disposition home or self-care (01) | LOC: RPT 11:07 | PROVIDERS: ATTENDING PHYSICIAN Student in an Organized Health Care Education/Training Program; FAMILY PHYSICIAN Family Medicine | DX: I89.0 Lymphedema, not elsewhere classified (principal); Z73.6 Limitation of activities due to disability; R26.2 Difficulty in walking, not elsewhere classified; M54.9 Dorsalgia, unspecified; R26.89 Other abnormalities of gait and mobility; G89.29 Other chronic pain | CPT/HCPCS: 97140; 97530 ==

== ENCOUNTER → 2025-03-02 10:35 | Outpatient (REF) | payer MEDICARE, SELFPAY | LOC: RAD 10:35 | PROVIDERS: ATTENDING PHYSICIAN Surgery Vascular Surgery; FAMILY PHYSICIAN Family Medicine | DX: I89.0 Lymphedema, not elsewhere classified (principal); I70.248 Atherosclerosis of native arteries of left leg with ulceration of other part of lower leg | CPT/HCPCS: 93922 ==

== ENCOUNTER → 2025-03-12 12:12 | Outpatient (REF) | payer MEDICARE, SELFPAY | LOC: RAD 12:12 | PROVIDERS: ATTENDING PHYSICIAN Physician Assistant; FAMILY PHYSICIAN Family Medicine; OTHER PHYSICIAN Nurse Practitioner | DX: I50.20 Unspecified systolic (congestive) heart failure (principal); I73.9 Peripheral vascular disease, unspecified | CPT/HCPCS: 75635; 93306; Q9950; Q9967 ==

== ENCOUNTER 2025-04-20 13:00 | Inpatient (IN) | payer MEDICARE, SELFPAY ==
[2025-04-20 11:35] VITALS: BMI 35.2
[2025-04-20] MEDS: NORMOSOL-R/PLASMALYTE-A 1000 IV ×2 (11:42→11:44)
[2025-04-20 11:46] LABS: Glucose - Point of Care 578 mg/dl (70-99)
[2025-04-20 11:47] VITALS: BP 112/69; BMI 35.2
--- NOTE | 2025-04-20 12:18 | PTCARENOTE ---
Patient admitted with very harsh wet cough and pox of 87-94% Dr. Infante at bedside and saw patient. Orders for portable CXR. Results show severe RLL PNA, possible aspiration PNA. Patient awaiting medicine to see him at the bedside and also "Amisha"Patricia. Surgery cancelled. Patient inc of stool on admission. Patient also has multiple stage 2 wounds to the buttocks and sacrum. Patient turned and cleaned up from stool incontinence. Patient had a brace 5to the L leg on admission and the brace
was removed and put into belongings bag. Accucheck read high on accucheck monitor but them the result was 578 in [employer]. Bmp still pending with lab glucose result. Patients caregiver Mat at bedside.
--- NOTE | 2025-04-20 12:24 | PTCARENOTE ---
Patients daughter given an update regarding patients condition. She was told that the patient has Pneumonia and that surgery was cancelled.
[2025-04-20 12:29] LABS: ALT (SGPT) 15 U/L (0-50); AST (SGOT) 18 U/L (17-59); Albumin 3.7 g/dl (3.5-5.0); Alkaline Phosphatase 131 U/L (38-126); Blood Urea Nitrogen 29 mg/dl (9-20); Calcium 9.6 mg/dl (8.4-10.2); Carbon Dioxide 29 mmol/L (22-30); Chloride 92 mmol/L (98-107); Estimated Creatinine Clearance 80 ml/min; Glucose 578 mg/dl (70-99); Potassium 4.0 mmol/L (3.5-5.1); Sodium 131 mmol/L (135-145); Total Protein 6.4 g/dl (6.3-8.2); eGFR > 60.00
--- NOTE | 2025-04-20 12:37 | CONS.URO ---
Consultation
-
Date/Time Consultation Performed: 04/20
Performing Provider: Peffer
Reason for Consultation: Periop
Medical History
History of Present Illness
79M history of neurogenic bladder, refractory urinary frequency, spinal stenosis
s/p Interstim placement which did not help symptoms
Currently with indwelling yung catheter
Arrived today for planned explant of interstim device and suprapubic tube placement
In preop he was noted to be SOB with low O2 sat
CXR showed large R pneumonia
Blood sugar critically elevated
Past Medical History: Afib, CAD, CHF, CVA, GERD, HTN, Hypercholesterolemia, NIDDM, ID, Anxiety, Depression,GI bleed, Orthostatic hypotension, Iron deficiency anemia, Neuropathy, Sleep apnea, UTI
ED Past Surgical History: Cardiac stent, Cholecystectomy, Bilateral hip replacements, Left rotator cuff surgery, Right knee replacement, Gastric bypass, Interstim
Social History
Living: With Family
Family History
Family History: Reviewed & Not Pertinent
Allergies/Home Medications
Allergies
Allergy/AdvReac Type Severity Reaction Status Date / Time
meperidine HCl (From Demerol) Allergy gets hyper Verified 04/20/25 11:53
ondansetron (From Zofran) Allergy N/V Verified 04/20/25 11:53
Home Medications
�Medication �Instructions �Recorded �Confirmed �Type
apixaban 5 mg tablet (Eliquis) 5 mg PO BID Blood Clot 05/21/23 04/20/25 Rx
Prevention/Tx #60 tabs
pravastatin 40 mg tablet 40 mg PO QPM High Cholesterol 04/22/24 04/20/25 History
vibegron 75 mg tablet (Gemtesa) 75 mg PO DAILY Urinary Issue 04/22/24 04/20/25 History
gabapentin 300 mg capsule 300 mg PO QID Neurological 06/07/24 04/20/25 History
Condition
midodrine 5 mg tablet 5 mg PO TID@0800,1200,1600 30 days 07/28/24 04/20/25 Rx
#90 tabs
albuterol sulfate 90 mcg/actuation 2 puff inhalation R Q6HPRN PRN 08/16/24 04/20/25 History
aerosol inhaler shortness of breath or wheezing
acetaminophen 500 mg tablet 1,000 mg (2 x 500 mg) PO TID #90 08/18/24 04/20/25 Rx
(Tylenol Extra Strength) tabs
furosemide 20 mg tablet 80 mg PO DAILY 04/16/25 04/20/25 History
oxycodone 5 mg tablet 5 mg PO Q4H PRN discomfort 04/16/25 04/20/25 History
sennosides 8.6 mg tablet (senna) 8.6 mg PO BID PRN constipation 04/16/25 04/20/25 History
escitalopram oxalate 5 mg tablet 5 mg PO DAILY 04/19/25 04/20/25 History
(Lexapro)
tamsulosin 0.4 mg capsule 0.4 mg PO QPM 04/19/25 04/20/25 History
guaifenesin 600 mg tablet, 600 mg PO BID PRN cough 04/20/25 04/20/25 History
extended release 12 hr (Mucinex)
Physical Exam
Vital Signs
Vital Signs
Temp Pulse Resp BP Pulse Ox
98.4 F 100 16 112/69 94
04/20/25 11:47 04/20/25 11:47 04/20/25 11:47 04/20/25 11:47 04/20/25 11:47
Lab / Testing Results
Laboratory Results
04/20/25 11:47
Physical Exam
General: Well Developed, Well Nourished and No Apparent Distress
Respiratory: Accessory Resp Muscle Use and Other (productive cough)
GI: Soft and Non Tender
Genito-urinary: No Costovertebral Tend and Yung Catheter
Neuro: AO x 3
Psych: Calm and Intact Judgement
Assessment / Plan
-
79M with refractory urinary frequency, neurogenic bladder s/p Interstim
Admitted for pneumonia and hyperglycemia on day of planned outpatient procedure
- Treatment for acute issues per hospitalist
- If patient is medically stable for surgery this weekend, his procedure could be done on Wednesday AM. Otherwise will plan to reschedule in May after his upcoming spinal surgery
- Routine yung catheter change this admit if not going to OR
--- NOTE | 2025-04-20 12:38 | SUR.OPER ---
Hospitalist called by Dr. Gomez. Awaiting them to see patient.
[2025-04-20] MEDS: NOVOLOG vial 10 UNITS SC (12:56)
--- NOTE | 2025-04-20 12:57 | HPS.HSE ---
Family Physician
-
Family Physician: NO INTERVIEW UNKNOWN
Chief Complaint
-
Hypoxia
History of Present Illness
Patient 79 years old male with history of neurogenic bladder, spinal stenosis, CVA, A-fib, CHF, CAD, hypertension, hyperlipidemia, diabetes mellitus, GI bleed, orthostatic hypotension, BETSEY, frequent UTIs, vascular dementia, came into the hospital
for elective explant of InterStim device and suprapubic tube placement but prior to procedure patient was noted to be dyspneic and hypoxic and very hyperglycemic so procedure was aborted and medical team was asked to evaluate patient. I came and
saw patient on same-day services and also medical aid is at the bedside and helping with information and patient does relate that he has been having shortness of breath and cough for the last couple of days and today he noticed that his cough was
worse. He denies fevers or chills. Denies worsening lower extremity edema or weight gain. Patient has been noticed to have elevated hemoglobin A1c and he was placed on metformin but he has not been able to take it yet and he has not been on
insulin prior to admission. On review of last echocardiogram last month showed an EF of 45 to 50%, mild aortic stenosis, severe left atrial enlargement, right ventricle mildly hypokinetic. Patient had a chest x-ray that shows significant
right-sided pneumonia. He also had a BMP with a glucose of 578, bicarb 29, and sodium 131. He was referred to hospitalist service for further evaluation.
Medical History
Past Medical History
Past Medical History: Reports Other (Hypertension, hyperlipidemia, CAD, diabetes, obstructive sleep apnea, BPH, cataracts, chronic back pain, stroke, dementia, gait dysfunction, lymphedema, atrial fibrillation, thrombocytopenia, orthostatic
hypotension)
Past Surgical History: Reports Other (No recent major surgery)
Social History
Tobacco: Former Smoker
Alcohol: Occasional
Drug: None
Living: Other (Home with caregiver)
Family History
Family History: Not pertinent
Allergies / Home Medications
Allergies reflects when Allergies were last updated in [facility].
Home Medications with original date entered in [facility]
Allergy/Medication List:
Allergies
Allergy/AdvReac Type Severity Reaction Status Date / Time
meperidine HCl (From Demerol) Allergy gets hyper Verified 04/20/25 11:53
ondansetron (From Zofran) Allergy N/V Verified 04/20/25 11:53
Home Medications
apixaban 5 mg tablet (Eliquis) 5 mg PO BID Blood Clot Prevention/Tx #60 tabs 05/21/23
pravastatin 40 mg tablet 40 mg PO QPM High Cholesterol 04/22/24
vibegron 75 mg tablet (Gemtesa) 75 mg PO DAILY Urinary Issue 04/22/24
gabapentin 300 mg capsule 300 mg PO QID Neurological Condition 06/07/24
midodrine 5 mg tablet 5 mg PO TID@0800,1200,1600 30 days #90 tabs 07/28/24
albuterol sulfate 90 mcg/actuation aerosol inhaler 2 puff inhalation R Q6HPRN PRN shortness of breath or wheezing 08/16/24
acetaminophen 500 mg tablet (Tylenol Extra Strength) 1,000 mg (2 x 500 mg) PO TID #90 tabs 08/18/24
furosemide 20 mg tablet 80 mg PO DAILY 04/16/25
oxycodone 5 mg tablet 5 mg PO Q4H PRN discomfort 04/16/25
sennosides 8.6 mg tablet (senna) 8.6 mg PO BID PRN constipation 04/16/25
escitalopram oxalate 5 mg tablet (Lexapro) 5 mg PO DAILY 04/19/25
tamsulosin 0.4 mg capsule 0.4 mg PO QPM 04/19/25
guaifenesin 600 mg tablet, extended release 12 hr (Mucinex) 600 mg PO BID PRN cough 04/20/25
Review of Systems
-
A 12 point ROS was completed and negative except as noted: Yes
Physical Exam
Vital Signs
Vital Signs
Temp Pulse Resp BP Pulse Ox
98.4 F 100 16 112/69 94
04/20/25 11:47 04/20/25 11:47 04/20/25 11:47 04/20/25 11:47 04/20/25 11:47
Physical exam:
General: Acutely ill
HEENT: Normocephalic, Atraumatic and Moist Mucous Membranes
Respiratory: Coarse rhonchi in the right base; Negative Wheezes, Rales
Cardiac: Regular Rhythm and S1/S2
GI: Soft, Nontender and Nondistended
: White catheter in place
Musculoskeletal: No Clubbing, No Cyanosis. There is bilateral lower extremity edema
Neuro: Awake, Alert and Oriented, no neurological deficits, mild cognitive deficits
Psych: Calm
Physical Exam
General: Other
Laboratory Results
-
04/20/25 11:47
Laboratory Results
Total Bilirubin 1.0 mg/dl (0.2-1.3) 04/20/25 11:45
AST 18 U/L (17-59) 04/20/25 11:45
ALT 15 U/L (0-50) 04/20/25 11:45
Alkaline Phosphatase 131 U/L (38-126) H 04/20/25 11:45
Impression/Plan
-
IMPRESSION:
Patient 79 years old male with multiple comorbidities came into the hospital for elective urological procedure but complicated with hypoxia, hypoglycemia, dyspneic. Due to acute presentation and comorbidities patient is at risk of increased
morbidity mortality and patient will need to be admitted to the hospital and treated accordingly and will need to be monitored closely.
PLAN:
Acute hypoxic respiratory insufficiency:
Seen chest x-ray today
Likely due to pneumonia-suspect community-acquired pneumonia. Cannot rule out aspiration.
Start IV Zosyn and oral doxycycline
Speech therapy evaluation
Obtain strep and Legionella antigen
Obtain sputum culture
No need for blood cultures or lactate as patient is not septic but obtain CBC.
Diabetes mellitus with significant hyperglycemia:
No evidence of DKA or non-hypoketotic hyperglycemia
Will start him on NovoLog aspart insulin 10 units stat now.
Will start him on gentle hydration IV fluids
Will then continue with low resistant insulin sliding scale
Will also start on long-acting insulin with Lantus 15 units daily
Hold any oral hypoglycemics
Update hemoglobin A1c
Chronic HFmrEF:
Monitor daily weights and ins and out
Hold diuretics for today and restart tomorrow
Persistent to permanent atrial fibrillation:
Anticoagulation on hold, Eliquis
Not on rate control agents
Cardiac monitoring
CAD:
Continue home anti-ischemic regimen
Chest pain-free
Orthostatic hypotension:
Continue midodrine
Peripheral vascular disease:
Continue statins and resume anticoagulation when feasible
History of CVA:
Continue statins and resume anticoagulation when feasible
History of vascular dementia:
Monitor mental status and behavior closely
BPH and urinary retention:
Continue Flomax
Continue White catheter
Urology will reevaluate if able to the procedure suprapubic catheter over the weekend
DVT prophylaxis:
Heparin SQ
CODE STATUS:
Full code
Time spent 75 minutes
[2025-04-20] MEDS: NSS 1000 IV (13:02)
[2025-04-20 14:46] VITALS: BP 118/67
--- NOTE | 2025-04-20 15:00 | PTOTSP ---
Speech Language Pathology
Pt seen for clinical bedside swallow evaluation. P.O. trials of puree and thin liquids provided. Prior to providing regular solids, notified by RN that pt with critically high glucose and to defer further P.O. Cough noted at rest when talking
with FIELD GEOLOGIST. Similar cough noted following puree. Pt denied noting any difficulty swallowing. No coughing noted with thin liquids. No hx of PNA.
Recommend:
(1) Regular solids/thin liquids
(2) General aspiration precautions
(3) Meds as tolerated
(4) Will consider instrumental swallowing assessment if any difficulties noted
(5) FIELD GEOLOGIST to continue to follow
[2025-04-20 15:03] LABS: Glucose - Point of Care 483 mg/dl (70-99)
[2025-04-20] MEDS: LANTUS 0.15 UNITS SC (15:32)
[2025-04-20] MEDS: ZOSYN 50 IV ×2 (15:36→20:40)
[2025-04-20] MEDS: VIBRAMYCIN 100 MG PO (15:38)
[2025-04-20] MEDS: HEPARIN 5000 UNITS SC ×2 (15:39→23:28)
[2025-04-20 15:54] LABS: Hematocrit 37.9 % (39.0-52.0); Hemoglobin 12.4 g/dL (13.0-18.0); Mean Corp Hgb Conc. 32.7 g/dL (33.0-37.0); Mean Corpuscular Volume 95.0 fL (80.0-94.0); Nucleated Red Blood Cells % 0 % (-); Platelet Count 158 10^3/uL (130-400); Red Cell Dist. Width 14.9 % (11.5-14.5)
[2025-04-20 16:15] LABS: Glucose 347 mg/dl (70-99)
[2025-04-20] MEDS: NOVOLOG FLEXPEN-LOW RESISTANCE SC ×2 (16:44→16:45)
[2025-04-20] MEDS: NOVOLOG FLEXPEN 10 UNITS SC (16:45)
[2025-04-20 18:41] LABS: Glucose - Point of Care 271 mg/dl (70-99)
[2025-04-20 19:45] VITALS: BP 148/82
[2025-04-20] MEDS: TYLENOL 650 MG PO (19:46)
[2025-04-20] MEDS: ROXICODONE 5 MG PO (20:41)
[2025-04-20] MEDS: FLOMAX 0.4 MG PO (20:41)
[2025-04-20] MEDS: PRAVACHOL 40 MG PO (20:41)
[2025-04-20] MEDS: VIBRAMYCIN PO (21:03)
[2025-04-20] MEDS: TYLENOL PO (21:03)
[2025-04-20 21:38] LABS: Glucose - Point of Care 100 mg/dl (70-99)
[2025-04-20 23:48] VITALS: BP 105/60
[2025-04-21] VITALS (8 sets, daily range): BP systolic 100–115; BP diastolic 54–73; PULSE 100; O2SAT 92
[2025-04-21] MEDS: ZOSYN 50 IV (01:48)
[2025-04-21] MEDS: ROXICODONE 5 MG PO ×2 (02:09→19:34)
[2025-04-21 03:53] LABS: Glucose - Point of Care 185 mg/dl (70-99)
[2025-04-21 06:10] LABS: Hematocrit 32.9 % (39.0-52.0); Hemoglobin 11.0 g/dL (13.0-18.0); Mean Corp Hgb Conc. 33.4 g/dL (33.0-37.0); Mean Corpuscular Volume 94.0 fL (80.0-94.0); Nucleated Red Blood Cells % 0 % (-); Platelet Count 149 10^3/uL (130-400); Red Cell Dist. Width 15.1 % (11.5-14.5)
[2025-04-21 06:33] LABS: Blood Urea Nitrogen 25 mg/dl (9-20); Calcium 8.8 mg/dl (8.4-10.2); Carbon Dioxide 28 mmol/L (22-30); Chloride 96 mmol/L (98-107); Estimated Creatinine Clearance 90 ml/min; Glucose 160 mg/dl (70-99); Potassium 3.6 mmol/L (3.5-5.1); Sodium 132 mmol/L (135-145); eGFR > 60.00
[2025-04-21 08:05] LABS: Glucose - Point of Care 179 mg/dl (70-99)
[2025-04-21] MEDS: HEPARIN 5000 UNITS SC ×2 (10:07→17:32)
[2025-04-21] MEDS: NOVOLOG FLEXPEN-LOW RESISTANCE SC (10:07)
[2025-04-21] MEDS: VIBRAMYCIN 100 MG PO ×2 (10:12→19:30)
[2025-04-21] MEDS: LANTUS 0.15 UNITS SC (10:12)
[2025-04-21] MEDS: NEURONTIN 300 MG PO ×4 (10:12→20:54)
[2025-04-21] MEDS: TYLENOL 1000 MG PO ×3 (10:13→20:54)
[2025-04-21] MEDS: LASIX 80 MG PO (10:15)
[2025-04-21] MEDS: LEXAPRO 5 MG PO (10:17)
[2025-04-21] MEDS: NOVOLOG FLEXPEN 5 UNITS SC ×3 (10:32→17:33)
[2025-04-21] MEDS: STERILE WATER FOR INJECTION 10 ML IV (10:33)
[2025-04-21] MEDS: ROCEPHIN 1000 MG IV (10:35)
[2025-04-21] MEDS: LANTUS SC (10:55)
[2025-04-21] MEDS: ZOSYN IV (10:55)
[2025-04-21 11:29] LABS: Glucose - Point of Care 250 mg/dl (70-99)
[2025-04-21 12:15] LABS: Glycohemoglobin (HgbA1c) 11.2 % (4.0-5.9)
--- NOTE | 2025-04-21 12:23 | W.PN.HOSP.TC ---
Today's Communication/Plan
-
Antibiotics. Insulin.
Assessment / Plan
Assessment / Plan
Physical exam:
General: Acutely ill
HEENT: Normocephalic, Atraumatic and Moist Mucous Membranes
Respiratory: Right base rhonchi; Negative Wheezes, Rales
Cardiac: Regular Rhythm and S1/S2
GI: Soft, Nontender and Nondistended
Musculoskeletal: No Clubbing, No Cyanosis and some lower extremity edema
Neuro: Awake, Alert and Oriented, no neurological deficits
Psych: Calm but cognitive deficit
A/P:
Acute hypoxic respiratory insufficiency:
Wean oxygen
Antibiotic
Incentive spirometer
PT eval
Pneumonia:
Improving
Continue IV antibiotics but switched to IV ceftriaxone (adjusted doses after discussing with pharmacy) and Doxy
Follow-up sputum culture
Ordered strep and Legionella antigen
WBC 14.3--> 10.7 today
Diabetes mellitus type II:
Improving but not at goal yet
BS close to 600 upon admission--> 160 today
Continue Lantus 15 units daily
Add NovoLog 5 units before meals
Hemoglobin A1c 11.2
No need for oral hypoglycemic
Continue insulin sliding scale
BPH and urinary retention:
Continue Flomax
Continue White catheter
Urology will reevaluate if able to the procedure suprapubic catheter over the weekend, likely tomorrow. If oxygenation and blood sugars continue to improve I have no objection for procedure.
Hyponatremia:
Trend sodium
Chronic HFmrEF:
Resume oral diuretics
Monitor daily weights and ins and out
Persistent to permanent atrial fibrillation:
Anticoagulation on hold, Eliquis due to upcoming urological procedure
Not on rate control agents
Cardiac monitoring
CAD:
Continue home anti-ischemic regimen
Chest pain-free
Orthostatic hypotension:
Continue midodrine
Peripheral vascular disease:
Continue statins and resume anticoagulation when feasible
History of CVA:
Continue statins and resume anticoagulation when feasible
History of vascular dementia:
Monitor mental status and behavior closely
DVT prophylaxis:
Heparin SQ
CODE STATUS:
Full code
Total time spent on today's encounter was 52 minutes which included time spent in counseling the patient/family regarding diagnosis and treatment plan as listed above, goals of care, and symptom management. Case was discussed with nursing staff,
specialists, and care coordinators/case management. All labs and imaging personally reviewed by me. Remainder the time spent in detailed review of previous records, lab data, imaging, and other medical provider documentation.
Anticipated Discharge: > 48 hours
Subjective/Interval History
-
Date of Service: April 21, 2025
Patient feels better today, less shortness of breath and cough. Afebrile. No chest pain.
Objective Data
-
Labs:
Laboratory Results
04/21/25
05:33
WBC 10.7
Hgb 11.0 L
Hct 32.9 L
Plt Count 149
Sodium 132 L
Potassium 3.6
Chloride 96 L
Carbon Dioxide 28
BUN 25 H
Creatinine 0.8
Glucose 160 H
Calcium 8.8
Vital Signs:
Vital Signs
Temp Pulse Resp BP Pulse Ox
98.1 F 93 18 105/54 90
04/21/25 11:37 04/21/25 11:37 04/21/25 11:37 04/21/25 11:37 04/21/25 11:37
I&O
04/20/25 04/21/25 04/22/25
06:59 06:59 06:59
Intake Total 720 / 720
Output Total 750 / 750
Balance -30 / -30
[2025-04-21] MEDS: NOVOLOG FLEXPEN-LOW RESISTANCE 3 UNITS SC (13:02)
--- NOTE | 2025-04-21 13:21 | W.PN.URO.CBU ---
Today's Communication / Plan
-
- NPO at MN
- OR in AM for suprapubic tube placement, explant of Interstim device
Assessment / Plan
-
79M with refractory urinary frequency, neurogenic bladder s/p Interstim
Admitted for pneumonia and hyperglycemia on day of planned outpatient procedure
- Treatment for acute issues per hospitalist
- Per hospitalist patient is medically stable to proceed to surgery tomorrow
- NPO at MN
- OR in AM for suprapubic tube placement, explant of Interstim device
Diagnosis
-
Date of Service: April 21, 2025
-
Patient Diagnosis:
Neurogenic bladder
Pneumonia
DM
Post Op Day:
Subjective
-
feeling well today
bothered by yung at baseline
Objective
-
Vital Signs
Temp Pulse Resp BP Pulse Ox
98.1 F 93 18 105/54 90
04/21/25 11:37 04/21/25 11:37 04/21/25 11:37 04/21/25 11:37 04/21/25 11:37
Intake and Output
04/20/25 04/21/25 04/22/25
06:59 06:59 06:59
Intake Total 720 / 720
Output Total 750 / 750
Balance -30 / -30
Intake:
Oral fluids 480 / 480
Amount of oral supplement(s) 240 / 240
consumed
Output:
Urine, Yung 500 / 500
Urine, Voided 250 / 250
Laboratory Results
04/21/25 05:33
04/21/25 05:33
Physical Exam
-
General - well developed, well nourished, no acute distress
Chest - productive cough
Abdomen - soft, non-tender
Yung in place, clear
[2025-04-21] MEDS: ROCEPHIN 2000 MG IV (13:54)
[2025-04-21] MEDS: STERILE WATER FOR INJECTION 20 ML IV (13:54)
[2025-04-21 16:11] LABS: Glucose - Point of Care 185 mg/dl (70-99)
[2025-04-21] MEDS: NOVOLOG FLEXPEN-LOW RESISTANCE 1 UNITS SC (17:33)
[2025-04-21] MEDS: FLOMAX 0.4 MG PO (17:34)
[2025-04-21] MEDS: PRAVACHOL 40 MG PO (17:35)
[2025-04-21 21:46] LABS: Glucose - Point of Care 100 mg/dl (70-99)
[2025-04-21] MEDS: DESENEX/MITRAZOL/ZEASORB 1 APPLIC TOPICAL (22:27)
[2025-04-22] VITALS (12 sets, daily range): BP systolic 102–127; BP diastolic 57–85; BMI 35.7
[2025-04-22] MEDS: HEPARIN 5000 UNITS SC (00:07)
[2025-04-22] MEDS: ROXICODONE 5 MG PO ×2 (05:38→19:30)
[2025-04-22 07:36] LABS: Hematocrit 35.1 % (39.0-52.0); Hemoglobin 11.5 g/dL (13.0-18.0); Mean Corp Hgb Conc. 32.8 g/dL (33.0-37.0); Mean Corpuscular Volume 95.1 fL (80.0-94.0); Nucleated Red Blood Cells % 0 % (-); Platelet Count 147 10^3/uL (130-400); Red Cell Dist. Width 14.8 % (11.5-14.5)
[2025-04-22] MEDS: HEPARIN SC (08:00)
[2025-04-22] MEDS: TYLENOL PO (08:00)
[2025-04-22 08:15] LABS: Glucose - Point of Care 167 mg/dl (70-99)
[2025-04-22 08:23] LABS: Blood Urea Nitrogen 22 mg/dl (9-20); Calcium 8.7 mg/dl (8.4-10.2); Carbon Dioxide 29 mmol/L (22-30); Chloride 97 mmol/L (98-107); Estimated Creatinine Clearance 91 ml/min; Glucose 144 mg/dl (70-99); Potassium 3.5 mmol/L (3.5-5.1); Sodium 135 mmol/L (135-145); eGFR > 60.00
--- NOTE | 2025-04-22 08:53 | W.PN.HOSP.TC ---
Addendum entered and electronically signed by Chaka Talamantes MD 04/22/25 14:02:
Discussed with urology and procedure went well and to keep anticoagulation on hold until 04/25/2025.
Original Note:
Today's Communication/Plan
-
IV antibiotics. Urological procedure today. Insulin
Assessment / Plan
Assessment / Plan
Physical exam:
General: Acutely ill
HEENT: Normocephalic, Atraumatic and Moist Mucous Membranes
Respiratory: Right base rhonchi; Negative Wheezes, Rales
Cardiac: Regular Rhythm and S1/S2
GI: Soft, Nontender and Nondistended
Musculoskeletal: No Clubbing, No Cyanosis and some lower extremity edema
Neuro: Awake, Alert and Oriented, no neurological deficits
Psych: Calm but cognitive deficit
A/P:
Acute hypoxic respiratory insufficiency:
On room air
Antibiotic
Incentive spirometer
PT OT eval and recommend skilled rehab
Assess for home oxygen needs
Discussed with daughter over the phone yesterday and explained at length plan of care.
Pneumonia:
Improving
Continue antibiotics IV Rocephin and doxycycline
Sputum culture not revealing
Ordered strep and Legionella antigen
WBC 14.3--> 8.1 today
Repeated chest x-ray today with similar appearance as before as expected. The only reason was repeated was to be done prior to procedures to make sure no worsening.
Discussed with urology yesterday-okay to proceed with procedure since he has received 48 hours of IV antibiotics at the moment and clinically much improved since he is no longer hypoxic and blood sugars improved.
Diabetes mellitus type II:
Improving
BS close to 600 upon admission--> 144 today
Continue Lantus 15 units daily--> I was about to give half the doses today but Anesthesia team calling to go to OR and asked not to give long-acting insulin. Will resume regular doses long-acting insulin after procedure then.
Continue NovoLog 5 units before meals
Hemoglobin A1c 11.2
No need for oral hypoglycemic
Continue insulin sliding scale
BPH and urinary retention:
Continue Flomax
Continue White catheter
Urology planning to do suprapubic catheter today and remove InterStim device
Hyponatremia:
Sodium back to normal today
Chronic HFmrEF:
Continue oral diuretics
Monitor daily weights and ins and out
Persistent to permanent atrial fibrillation:
Anticoagulation on hold, Eliquis due to upcoming urological procedure
Not on rate control agents
Cardiac monitoring
CAD:
Continue home anti-ischemic regimen
Chest pain-free
Orthostatic hypotension:
Continue midodrine
Peripheral vascular disease:
Continue statins and resume anticoagulation when feasible
History of CVA:
Continue statins and resume anticoagulation when feasible
History of vascular dementia:
Monitor mental status and behavior closely
DVT prophylaxis:
Hold Heparin SQ--> will switch to oral Eliquis once cleared by urology.
CODE STATUS:
Full code
Total time spent on today's encounter was 52 minutes which included time spent in counseling the patient/family regarding diagnosis and treatment plan as listed above, goals of care, and symptom management. Case was discussed with nursing staff,
specialists, and care coordinators/case management. All labs and imaging personally reviewed by me. Remainder the time spent in detailed review of previous records, lab data, imaging, and other medical provider documentation.
Anticipated Discharge: 24 - 48 hours
Subjective/Interval History
-
Date of Service: April 22, 2025
Patient still having cough but overall feeling better. Less shortness of breath. On room air. Afebrile.
Objective Data
-
Labs:
Laboratory Results
04/22/25
07:17
WBC 8.1
Hgb 11.5 L
Hct 35.1 L
Plt Count 147
Sodium 135
Potassium 3.5
Chloride 97 L
Carbon Dioxide 29
BUN 22 H
Creatinine 0.8
Glucose 144 H
Calcium 8.7
Vital Signs:
Vital Signs
Temp Pulse Resp BP Pulse Ox
97.8 F 88 20 105/70 93
04/22/25 07:56 04/22/25 07:56 04/22/25 07:56 04/22/25 07:56 04/22/25 07:56
I&O
04/21/25 04/22/25 04/23/25
06:59 06:59 06:59
Intake Total 720 / 720 960 / 960
Output Total 750 / 750 1350 / 1350
Balance -30 / -30 -390 / -390
[2025-04-22] MEDS: NOVOLOG FLEXPEN SC (09:17)
[2025-04-22] MEDS: NOVOLOG FLEXPEN-LOW RESISTANCE 1 UNITS SC ×2 (09:18→14:22)
[2025-04-22] MEDS: VIBRAMYCIN 100 MG PO ×2 (09:28→19:31)
--- NOTE | 2025-04-22 12:50 | W.PN.URO.CBU ---
Today's Communication / Plan
-
- s/p OR this AM for suprapubic tube placement, explant of Interstim device
- Urethral erosion and penile wound from traction on indwelling yung - local wound care with Bacitracin to penis twice daily
- Continue care for pneumonia/hyperglycemia per hospitalist
Once cleared for discharge, follow up with me in 6 weeks for suprapubic tube change
Assessment / Plan
-
79M with refractory urinary frequency, neurogenic bladder s/p Interstim
Admitted for pneumonia and hyperglycemia on day of planned outpatient procedure
- s/p OR this AM for suprapubic tube placement, explant of Interstim device
- Urethral erosion and penile wound from traction on indwelling yung - local wound care with Bacitracin to penis twice daily
- Care and abx course for pneumonia/hyperglycemia per hospitalist
Once cleared for discharge, follow up with me in 6 weeks for suprapubic tube change
Diagnosis
-
Date of Service: April 22, 2025
-
Patient Diagnosis:
Neurogenic bladder
Pneumonia
DM
Post Op Day:
Subjective
-
Post op
Objective
-
Vital Signs
Temp Pulse Resp BP Pulse Ox
97.8 F 88 20 105/70 93
04/22/25 07:56 04/22/25 07:56 04/22/25 07:56 04/22/25 07:56 04/22/25 07:56
Intake and Output
04/21/25 04/22/25 04/23/25
06:59 06:59 06:59
Intake Total 720 / 720 960 / 960
Output Total 750 / 750 1350 / 1350
Balance -30 / -30 -390 / -390
Intake:
Oral fluids 480 / 480 960 / 960
Amount of oral supplement(s) 240 / 240
consumed
Output:
Urine, Yung 500 / 500 1350 / 1350
Urine, Voided 250 / 250
Laboratory Results
04/22/25 07:17
04/22/25 07:17
Physical Exam
-
General - well developed, well nourished, no acute distress
Chest - prod cough
Abdomen - soft, non-tender
[2025-04-22 12:58] LABS: Glucose - Point of Care 157 mg/dl (70-99)
--- NOTE | 2025-04-22 14:00 | PTCARENOTE ---
Patient received from PACU at 1400. Patient AAOx3, no c/o pain, SPT with scant bloody drainage. SPT draining yellow urine. B/L back incisions sealed with surgi glue. Patient tolerating sips of clears, lunch ordered, call abernathy in reach.
[2025-04-22] MEDS: ROCEPHIN 2000 MG IV (14:20)
[2025-04-22] MEDS: NEURONTIN 300 MG PO ×4 (14:20→21:20)
[2025-04-22] MEDS: STERILE WATER FOR INJECTION 20 ML IV (14:20)
[2025-04-22] MEDS: LASIX 80 MG PO (14:20)
[2025-04-22] MEDS: LEXAPRO 5 MG PO (14:21)
[2025-04-22] MEDS: NOVOLOG FLEXPEN 5 UNITS SC ×2 (14:22→17:48)
[2025-04-22] MEDS: LANTUS 0.15 UNITS SC (14:27)
[2025-04-22] MEDS: DESENEX/MITRAZOL/ZEASORB 1 APPLIC TOPICAL ×2 (14:47→19:34)
--- NOTE | 2025-04-22 16:23 | CM ---
Patient lives with spouse in a one story home one step to enter, patient is independent with adl's and uses a walker with ambulation, home with spouse when stable.
PCP: Dr. Renner
Pharmacy: [facility]
[2025-04-22] MEDS: BACITRACIN OINTMENT 1 APPLIC TOPICAL ×2 (17:40→21:21)
[2025-04-22] MEDS: TYLENOL 1000 MG PO ×2 (17:41→21:20)
[2025-04-22] MEDS: FLOMAX 0.4 MG PO (17:42)
[2025-04-22] MEDS: NOVOLOG FLEXPEN-LOW RESISTANCE 4 UNITS SC (17:48)
[2025-04-22 17:49] LABS: Glucose - Point of Care 324 mg/dl (70-99)
[2025-04-22] MEDS: PRAVACHOL 40 MG PO (19:31)
[2025-04-22 20:31] LABS: Glucose - Point of Care 347 mg/dl (70-99)
[2025-04-22] MEDS: NOVOLOG FLEXPEN 10 UNITS SC (21:22)
[2025-04-22 23:24] LABS: Glucose - Point of Care 240 mg/dl (70-99)
[2025-04-23] VITALS (8 sets, daily range): BP systolic 101–114; BP diastolic 55–70; PULSE 2; BMI 36.4
[2025-04-23] MEDS: NEURONTIN 300 MG PO ×4 (07:40→21:18)
[2025-04-23] MEDS: TYLENOL 1000 MG PO ×3 (07:40→21:18)
[2025-04-23] MEDS: BACITRACIN OINTMENT 1 APPLIC TOPICAL ×3 (07:40→21:19)
[2025-04-23] MEDS: LEXAPRO 5 MG PO (07:41)
[2025-04-23] MEDS: LASIX 80 MG PO (07:41)
[2025-04-23] MEDS: VIBRAMYCIN 100 MG PO (07:41)
[2025-04-23] MEDS: DESENEX/MITRAZOL/ZEASORB 1 APPLIC TOPICAL ×2 (07:41→21:19)
[2025-04-23 07:53] LABS: Glucose - Point of Care 321 mg/dl (70-99)
[2025-04-23] MEDS: NOVOLOG FLEXPEN 5 UNITS SC (08:18)
[2025-04-23] MEDS: NOVOLOG FLEXPEN-LOW RESISTANCE 4 UNITS SC ×2 (08:18→13:10)
[2025-04-23] MEDS: LANTUS 0.15 UNITS SC (08:18)
--- NOTE | 2025-04-23 08:22 | PN.DE.MGMTRT ---
Insulin Management
- -
04/23/2025: Diabetes Management Consult
79 year old male with PMH: CVA, Dementia, A-fib, CHF, CAD, HTN, HLD, Neurogenic bladder, BPH, spinal stenosis, Diabetes mellitus, GI bleed, orthostatic hypotension, BETSEY, frequent UTIs, vascular dementia, came into the hospital for elective explant
of InterStim device and suprapubic tube placement but prior to procedure patient was noted to be dyspneic and hypoxic and very hyperglycemic with a glucose of 578, so procedure was aborted.
Patient does relate that he has been having shortness of breath and cough for the last couple of days and today he noticed that his cough was worse. CRX showed significant right-sided pneumonia.
Of note, pt had been taking Metformin 500 mg as of his last hospital visit in 01/2025 but it is not clear when he stopped taking it.
A1C 11.2%, Cr 0.8, eGFR >60
Pt awake, alert, sitting up in chair, offers no complaints, able to discuss diabetes care plan.
States he doesn't have a glucose monitor and does not test his blood sugars at home, nor adhere to a diabetic diet.
Diabetes regimen includes Lantus 15 units in AM, NovoLog 5 units AC and low corrective insulin with meals
Yesterday glucose was 157 to 324, received 1-4 units of corrective insulin. HS glucose up to 347, received 10 units of NovoLog @ HS, fasting 321 today.
Will increase Lantus to 18 units and NovoLog from 5 units to 8 units. Will resume Metformin 1000mg.
Tentative plan is to transition off bolus meal insulin to combination Lantus and oral regimen, if his blood glucose improves. This is to make it less complex for him at home, given declining mental status in this patient of advanced age. Pt's Dtr
states she should be able to assist pt with Lantus dose administration.
Discussed with Nurse. Will reassess tomorrow his readiness to receive Diabetes education on insulin administration and monitor instructions.
Diabetes History
- -
Type of Diabetes: 2 requiring insulin
Pre-Admission Diabetes Regimen
04/22/25
07:17
Creatinine 0.8
Lab Results
Hemoglobin A1c 11.2 % (4.0-5.9) H 04/21/25 05:33
Insulin Pump Settings
IP Diabetes Regimen
04/22/25 04/22/25 04/22/25
07:17 12:56 17:47
Glucose 144 H
POC Glucose 157 H 324 H
04/22/25 04/22/25 04/23/25
20:29 23:23 07:52
Glucose
POC Glucose 347 H 240 H 321 H
Patient Education
[2025-04-23 08:55] LABS: Hematocrit 36.4 % (39.0-52.0); Hemoglobin 11.6 g/dL (13.0-18.0); Mean Corp Hgb Conc. 31.9 g/dL (33.0-37.0); Mean Corpuscular Volume 95.3 fL (80.0-94.0); Nucleated Red Blood Cells % 0 % (-); Platelet Count 172 10^3/uL (130-400); Red Cell Dist. Width 14.7 % (11.5-14.5)
--- NOTE | 2025-04-23 09:10 | VNURNOTE ---
Addendum entered by Bobbi Locke RN 04/23/25 14:28:
[facility] Resumption referral placed in [facility].
Original Note:
Chart reviewed. Patient is current with [facility]. Will continue to follow hospital course and DC plans.
--- NOTE | 2025-04-23 09:26 | W.PN.HOSP.TC ---
Today's Communication/Plan
-
.
Assessment / Plan
Assessment / Plan
Physical exam:
General: not in distress. Sitting in chair , comfortable
HEENT: Normocephalic, Atraumatic and Moist Mucous Membranes
Respiratory: Right base rhonchi; Negative Wheezes, Rales
Cardiac: Regular Rhythm and S1/S2
GI: Soft, Nontender and Nondistended
Musculoskeletal: No Clubbing, No Cyanosis and some lower extremity edema
Neuro: Awake, Alert and Oriented, no neurological deficits
Psych: Calm but cognitive deficit
A/P:
Acute hypoxic respiratory insufficiency:
On room air now, resolved.
Antibiotic
Incentive spirometer
PT OT eval and recommend skilled rehab
Assess for home oxygen needs
Discussed with daughter.
CAP/ Pneumonia:
Improving
Continue antibiotics IV Rocephin and doxycycline
Sputum culture not revealing
Ordered strep and Legionella antigen
WBC 14.3--> 8.1 today
Repeated chest x-ray today with similar appearance as before as expected. The only reason was repeated was to be done prior to procedures to make sure no worsening.
Discussed with urology yesterday-okay to proceed with procedure since he has received 48 hours of IV antibiotics at the moment and clinically much improved since he is no longer hypoxic and blood sugars improved.
Diabetes mellitus type II:
Improving
BS close to 600 upon admission--> 144 today
Continue Lantus 15 units daily--> I was about to give half the doses today but Anesthesia team calling to go to OR and asked not to give long-acting insulin. Will resume regular doses long-acting insulin after procedure then.
Continue NovoLog 5 units before meals
Hemoglobin A1c 11.2
No need for oral hypoglycemic
Continue insulin sliding scale
BPH and urinary retention:
Continue Flomax
Continue White catheter
Urology planning to do suprapubic catheter today and remove InterStim device
Hyponatremia:
Sodium back to normal today
Chronic HFmrEF:
Continue oral diuretics
Monitor daily weights and ins and out
Persistent to permanent atrial fibrillation:
Anticoagulation on hold, Eliquis due to upcoming urological procedure
Not on rate control agents
Cardiac monitoring
CAD:
Continue home anti-ischemic regimen
Chest pain-free
Orthostatic hypotension:
Continue midodrine
Peripheral vascular disease:
Continue statins and resume anticoagulation when feasible
Hyponatremia
History of CVA:
Continue statins and resume anticoagulation when feasible
History of vascular dementia:
Monitor mental status and behavior closely
DVT prophylaxis:
Hold Heparin SQ--> will switch to oral Eliquis once cleared by urology.
Discussed with urology and procedure went well and to keep anticoagulation on hold until 04/25/2025.
CODE STATUS:
Full code
Total time spent on today's encounter was 57 minutes which included time spent in counseling the patient/family regarding diagnosis and treatment plan as listed above, goals of care, and symptom management. Case was discussed with nursing staff,
specialists, and care coordinators/case management. All labs and imaging personally reviewed by me. Remainder the time spent in detailed review of previous records, lab data, imaging, and other medical provider documentation.
Anticipated Discharge: 24 - 48 hours
Subjective/Interval History
-
Date of Service: April 23, 2025
No chest pain
No sob
Objective Data
-
Labs:
Laboratory Results
04/23/25
08:13
WBC 9.7
Hgb 11.6 L
Hct 36.4 L
Plt Count 172
Sodium Pending
Potassium Pending
Chloride Pending
Carbon Dioxide Pending
BUN Pending
Creatinine Pending
Glucose Pending
Calcium Pending
Vital Signs:
Vital Signs
Temp Pulse Resp BP Pulse Ox
97.1 F 67 18 110/58 94
04/23/25 03:09 04/23/25 03:09 04/23/25 03:09 04/23/25 03:09 04/23/25 03:09
I&O
04/22/25 04/23/25 04/24/25
06:59 06:59 06:59
Intake Total 960 / 960 850 / 850
Output Total 1350 / 1350 1425 / 1425
Balance -390 / -390 -575 / -575
[2025-04-23 09:43] LABS: Blood Urea Nitrogen 27 mg/dl (9-20); Calcium 8.9 mg/dl (8.4-10.2); Carbon Dioxide 32 mmol/L (22-30); Chloride 96 mmol/L (98-107); Estimated Creatinine Clearance 82 ml/min; Glucose 272 mg/dl (70-99); Potassium 3.8 mmol/L (3.5-5.1); Sodium 133 mmol/L (135-145); eGFR > 60.00
--- NOTE | 2025-04-23 11:00 | WOUNDNOTE ---
[facility] RN note: Patient admitted with sacral immunostimulator removal, suprapubic catheter placement. Patient lives with his spouse. Patient sleeps in a recliner chair at home and in the hospital.
See H&P for complete history.
PMH: Neurogenic bladder, spinal stenosis, CVA, a fib (Eliquis), CHF, HTN, DM, GI bleed, orthostatic HOTN, BETSEY, UTI's vascular dementia, former smoker.
Wound Location and type/assessment: Patient admitted with: Stage 2 sacral/coccyx pressure injuries, L inner ischial stage 2 pressure injury. L upper arm dermal skin tear. R martines small dermal skin tear. R dorsal great, 2nd and 3rd toe small scabbed
abrasions. Trace pedal edema. Pedal pulses easily heard via portable Doppler. Groin MASD. Scrotal redness. Penile meatal tear.
Appetite: Good.
Pressure redistribution devices in place: [employer] Accumax. Patient doesn't sleep in the bed. Air chair cushion. Patient stood in short inclements with walker and assist of 2 to assess and treat sacrum/buttocks.
Plan: Silicone border foam changed on sacrum and LUE. Silicone border foam applied to R martines. Protective heel foams changed on heels. Miconazole powder applied to abdominal/groin folds. t/c SPD and ordered bariatric air chair cushion. Discussed
with FABY Modi.
Will confirm orders with Dr. Dozier including knee high Tubigrip which patient wears at home. Updated FABY Modi.
Updated care plan and will follow as needed.
Note to case management of equipment requested for discharge: VN if goes home.
Recommend follow up at wound care center upon discharge.
[2025-04-23 12:04] LABS: Glucose - Point of Care 323 mg/dl (70-99)
--- NOTE | 2025-04-23 12:46 | W.PN.URO.CBU ---
Today's Communication / Plan
-
- Urethral erosion and penile wound from traction on indwelling yung - local wound care with Bacitracin to penis twice daily
- Care and abx course for pneumonia/hyperglycemia per hospitalist
Once cleared for discharge, follow up with me in 6 weeks for suprapubic tube change
Assessment / Plan
-
79M with refractory urinary frequency, neurogenic bladder s/p Interstim
Admitted for pneumonia and hyperglycemia on day of planned outpatient procedure
- s/p OR for suprapubic tube placement, explant of Interstim device
- Urethral erosion and penile wound from traction on indwelling yung - local wound care with Bacitracin to penis twice daily
- Care and abx course for pneumonia/hyperglycemia per hospitalist
Once cleared for discharge, follow up with me in 6 weeks for suprapubic tube change
Diagnosis
-
Date of Service: April 23, 2025
-
Patient Diagnosis:
Neurogenic bladder
Pneumonia
DM
Post Op Day s/p suprapubic tube placement and explant of interstim
Subjective
-
Minimal pain
tolerated procedure well
Objective
-
Vital Signs
Temp Pulse Resp BP Pulse Ox
97.8 F 96 18 111/70 96
04/23/25 11:00 04/23/25 11:00 04/23/25 11:00 04/23/25 11:00 04/23/25 11:00
Intake and Output
04/22/25 04/23/25 04/24/25
06:59 06:59 06:59
Intake Total 960 / 960 850 / 850
Output Total 1350 / 1350 1425 / 1425
Balance -390 / -390 -575 / -575
Intake:
Oral fluids 960 / 960 800 / 800
IV fluids (Total) 50 / 50
Normosal 50 / 50
Output:
Urine, Yung 1350 / 1350 975 / 975
Suprapubic output 450 / 450
Laboratory Results
04/23/25 08:13
04/23/25 08:13
Physical Exam
-
General - well developed, well nourished, no acute distress
Chest - clear bilaterally
Incision c/d/i with surgical glue on buttock
SPT in place, clear urine, minimal drainage around tube
[2025-04-23] MEDS: NOVOLOG FLEXPEN 8 UNITS SC ×2 (13:11→16:58)
[2025-04-23] MEDS: ROCEPHIN 2000 MG IV (13:22)
[2025-04-23] MEDS: STERILE WATER FOR INJECTION 20 ML IV (13:22)
--- NOTE | 2025-04-23 14:00 | WOUNDNOTE ---
[facility] RN note: angel Day re: recommend VN if patient goes home. He has coccyx/buttocks pressure injuries.
[2025-04-23 16:29] LABS: Glucose - Point of Care 236 mg/dl (70-99)
[2025-04-23] MEDS: NOVOLOG FLEXPEN-LOW RESISTANCE 2 UNITS SC (16:58)
[2025-04-23] MEDS: GLUCOPHAGE 1000 MG PO (17:01)
[2025-04-23] MEDS: PRAVACHOL 40 MG PO (17:08)
[2025-04-23] MEDS: FLOMAX 0.4 MG PO (17:08)
--- NOTE | 2025-04-23 18:03 | CM ---
CM spoke with patient's daughter by telephone. PT aidee on 04/21 recommended SNF. Daughter does not want SNF for patient. He will be going home with his upon d/c. He has a caregiver 8hrs daily and he is known to [facility]. He is
also scheduled for surgery next week.
Plan: home with [facility]
[2025-04-23 21:40] LABS: Glucose - Point of Care 206 mg/dl (70-99)
[2025-04-24] VITALS (8 sets, daily range): BP systolic 102–122; BP diastolic 56–75; PULSE 2–95; O2SAT 97
--- NOTE | 2025-04-24 08:07 | PN.DE.MGMTRT ---
Insulin Management
- -
04/24/2025: Diabetes Management Consult Follow up
79 year old male admitted 04/20 for elective explant of InterStim device and suprapubic tube placement but was found to be hypoxic with significant hyperglycemia, 578; procedures were aborted. PMH: CVA, Dementia, A-fib, CHF, CAD, HTN, HLD,
Neurogenic bladder, BPH, spinal stenosis, Diabetes mellitus, GI bleed, orthostatic hypotension, BETSEY, frequent UTIs, vascular dementia.
Patient does relate that he has been having shortness of breath and cough for the last couple of days and today he noticed that his cough was worse. CRX showed significant right-sided pneumonia.
Of note, pt had been taking Metformin 500 mg as of his last hospital visit in 01/2025 but it is not clear when he stopped taking it.
A1C 11.2%, Cr 0.8, eGFR >60
Pt awake, alert, sitting up in chair, offers no complaints, able to discuss diabetes care plan.
States he doesn't have a glucose monitor and does not test his blood sugars at home, nor adhere to a diabetic diet.
Yesterday Diabetes regimen includes Lantus 15 units in AM, NovoLog 8 units AC and low corrective insulin with meals. Glucose was 206 to 323, received 1-4 units of corrective insulin. Metformin 1000 mg BID started with dinner.
AM lantus dose to be increased to 18 units this AM with novolog AC. Will start Januvia 100 mg daily. Will assess glucose for possibility of decreasing AC novolog; in hopes of transitioning off bolus meal insulin to combination Lantus and oral
regimen, if his blood glucose improves. This is to make it less complex for him at home, given declining mental status in this patient of advanced age. Pt's Dtr states she should be able to assist pt with Lantus dose administration.
Discussed with Nurse.
Will follow.
art educator to instruct patient on insulin administration and monitor instructions.
Diabetes History
- -
Type of Diabetes: 2
Pre-Admission Diabetes Regimen
04/23/25
08:13
Creatinine 0.9
Lab Results
Hemoglobin A1c 11.2 % (4.0-5.9) H 04/21/25 05:33
Insulin Pump Settings
IP Diabetes Regimen
04/23/25 04/23/25 04/23/25
08:13 12:03 16:28
Glucose 272 H
POC Glucose 323 H 236 H
04/23/25
21:39
Glucose
POC Glucose 206 H
Meal type: Dinner
Meal type: Lunch
Meal type: Breakfast
Amount consumed: 100%
Amount consumed: 100%
Amount consumed: 100%
Patient Education
[2025-04-24 08:09] LABS: Glucose - Point of Care 272 mg/dl (70-99)
[2025-04-24] MEDS: LANTUS 0.18 UNITS SC (08:10)
[2025-04-24] MEDS: NOVOLOG FLEXPEN-LOW RESISTANCE 3 UNITS SC (08:11)
[2025-04-24] MEDS: NOVOLOG FLEXPEN 8 UNITS SC ×3 (08:11→17:19)
[2025-04-24] MEDS: BACITRACIN OINTMENT 1 APPLIC TOPICAL ×3 (08:14→21:27)
[2025-04-24] MEDS: DESENEX/MITRAZOL/ZEASORB 1 APPLIC TOPICAL ×2 (08:15→21:27)
[2025-04-24] MEDS: GLUCOPHAGE 1000 MG PO ×2 (08:16→17:23)
[2025-04-24] MEDS: TYLENOL 1000 MG PO ×3 (08:16→21:27)
[2025-04-24] MEDS: NEURONTIN 300 MG PO ×4 (08:16→21:27)
[2025-04-24] MEDS: LASIX 80 MG PO (08:17)
[2025-04-24] MEDS: LEXAPRO 5 MG PO (08:17)
[2025-04-24] MEDS: ROXICODONE 5 MG PO ×2 (08:25→13:37)
--- NOTE | 2025-04-24 09:26 | W.PN.HOSP.TC ---
Addendum entered and electronically signed by Eden Dozier MD 04/24/25 11:47:
Addendum
Updated daughter on phone, likely discharge in AM.
End
Original Note:
Today's Communication/Plan
-
.
Assessment / Plan
Assessment / Plan
Physical exam:
General: not in distress. Sitting in chair , comfortable
HEENT: Normocephalic, Atraumatic and Moist Mucous Membranes
Respiratory: no rhonchi; Negative Wheezes, Rales
Cardiac: Regular Rhythm and S1/S2
GI: Soft, Nontender and Nondistended
Musculoskeletal: No Clubbing, No Cyanosis and some lower extremity edema
Neuro: Awake, Alert and Oriented, forgetful, no neurological deficits
Psych: Calm but cognitive deficit
A/P:
Acute hypoxic respiratory insufficiency:
On room air now, resolved.
Antibiotic for 7 days
Incentive spirometer
PT OT eval and recommend skilled rehab
Speech evaluated the patient, ok to resume regular diet with thin liquids.
Discussed with daughter.
CAP/ Pneumonia:
Improving
Continue antibiotics IV Rocephin and doxycycline
Sputum culture not revealing
negative strep and Legionella antigen
Repeat chest x-ray
Diabetes mellitus type II:
still uncontrolled
Started back on metformin but higher dose
Started on Januvia
c/w Lantus and pre-meal insulin
Daughter said metformin was stopped upon admission to [facility] in August but our records showing no dc orders and to c/w metformin upon discharge.
d/w [employer], appreciate help
# Spinal stenosis, chronic back pain, right foot drop
Lymphedema
Patient is scheduled to have back surgery at [place] with Dr. Venkat Whitehead. Patient was told to hold anticoagulation 8 days prior to surgery. I received call 04/23 from neurosurgery office, physician case management assistant Gudelia about patient's situation.
Current medical issues should not be prohibitive for him to have back surgery. I informed her that to obtain complete medical clearance for surgery, should go to primary care doctor.
BPH and urinary retention:
Continue Flomax
Hyponatremia:
Chronic HFmrEF:
Continue oral diuretics
Monitor daily weights
Persistent to permanent atrial fibrillation:
Anticoagulation on hold, Eliquis due to upcoming urological procedure
Not on rate control agents
Cardiac monitoring
CAD:
Continue home anti-ischemic regimen
Chest pain-free
Orthostatic hypotension:
Continue midodrine
Peripheral vascular disease:
Continue statins and resume anticoagulation when feasible
History of CVA:
Continue statins and resume anticoagulation after back surgery.
History of vascular dementia:
Monitor mental status and behavior closely
DVT prophylaxis:
Will do Heparin SQ while in hospital.
Discussed with urology and procedure went well and to keep anticoagulation on hold until 04/25/2025. According to daughter, pt is scheduled to have back surgery with Dr Whitehead at [place], was told to hold Eliquis 7 days prior to surgery which will be
included in this period.
CODE STATUS:
Full code
Total time spent to see the patient, examine the patient, review data and lab results, discuss treatment plan with patient, daughter nursing staff around 59 minutes
Anticipated Discharge: Within 24 hours
Subjective/Interval History
-
Date of Service: April 24, 2025
No chest pain
No sob
He has back pain
Objective Data
-
Vital Signs:
Vital Signs
Temp Pulse Resp BP Pulse Ox
98.4 F 80 18 122/75 95
04/24/25 08:10 04/24/25 08:10 04/24/25 08:10 04/24/25 08:10 04/24/25 08:10
I&O
04/23/25 04/24/25 04/25/25
06:59 06:59 06:59
Intake Total 850 / 850
Output Total 1425 / 1425 1350 / 1350
Balance -575 / -575 -1350 / -1350
--- NOTE | 2025-04-24 09:35 | PTOTSP ---
Speech Language Pathology
Pt seen for dysphagia tx, as new orders received post OR. Last CXR 04/22 showed similar findings to CXR on admission. WBC WNL. Pt reported good appetite on regular solids/thin liquids diet with no difficulty chewing or swallowing. RN also
reported no difficulty with meds. Seen with consecutive sips of thin liquids with no overt signs of aspiration. Pt has not had PNA prior. Therefore, will hold on instrumental swallowing assessment at this time.
Recommend:
(1) Continue regular solids/thin liquids
(2) General aspiration precautions
(3) Meds as tolerated
(4) SKATESMAN to sign off. If significant concerns for silent aspiration, can order instrumental swallowing assessment
[2025-04-24] MEDS: JANUVIA 100 MG PO (10:51)
--- NOTE | 2025-04-24 11:22 | PN.CDI ---
Addendum entered and electronically signed by Eden Dozier MD 04/24/25 11:37:
Stage 2 left medial ischium pressure injury, POA
- Stage 2 coccyx/buttocks pressure injury, POA
Original Note:
CDI
- -
CDI:
Physician Documentation Request
Admit Date: 04/20/25 13:00
Dear Doctor Tasia,
Please review the following and provide your response in the progress notes.
Clinical Indicators:
- RN skin assessments indicate:
- Stage 2 left medial ischium pressure injury, POA
- Stage 2 coccyx/buttocks pressure injury, POA
Physician documentation of the type and location of wounds is required for compliant documentation. Based on the above clinical findings and your assessment, please provide the following in your progress note:
1. Location of the ulcer/wound, including laterality.
2. Type (etiology) of ulcer/wound:
- Diabetic ulcer
- Arterial (ischemic) ulcer
- Traumatic wound
- Venous stasis ulcer
- Pressure (decubitus) ulcer
- Other
Use of terms such as suspected, likely, concern for, or probable (associated with a specific diagnosis that is being evaluated, monitored, or treated as if it exists) are acceptable and can be coded in the inpatient setting, when documented at the
time of discharge.
Thank you,
Melvin Tucker RN
CDI Specialist
Please use your independent medical judgment in providing your response.
*Source: National Pressure Ulcer Advisory Panel (NPUAP)
[2025-04-24] MEDS: TYLENOL 650 MG PO (11:29)
[2025-04-24 12:22] LABS: Glucose - Point of Care 226 mg/dl (70-99)
[2025-04-24] MEDS: NOVOLOG FLEXPEN-LOW RESISTANCE 2 UNITS SC ×2 (13:23→17:19)
[2025-04-24] MEDS: STERILE WATER FOR INJECTION 20 ML IV (13:42)
[2025-04-24] MEDS: ROCEPHIN 2000 MG IV (13:43)
--- NOTE | 2025-04-24 14:30 | PTCARENOTE ---
04/24/2025 DIABETES EDUCATION CONSULT
I met with patient to review diabetes management, his A1c is currently 11.2%. He is IP for removal of interstim device, also has PMH of CVA and dementia. States he lives alone, has a trash collector truck driver to take him to MD appointments. He Initially states he
doesn't follow any PCP then states he sees Dr. Renner.
I explained that his Metformin will be increased to 1000 mg BID ( mg BID at home); explained mechanism of action. I also explained that he is prescribed Lantus and Novolog insulin while inpatient; uncertain if he will continue Novolog
upon discharge.
I educated on physiology of T2D, organ damage, managing with medications, monitoring BG, nutrition, activity, sleep and managing stress. I reinforced signs of hyperglycemia, hypoglycemia and hypoglycemia protocol; BS parameters and recommended HbA1c
goals, glucometer and CGM instructions, glucose tracker, medic alert bracelet and outpatient DSME program. Written material provided.
I provided patient with a [employer] glucometer sample kit. Provided verbal instructions on proper blood sugar testing technique, he declined instruction stating he knows how to check his BS but rarely checks at home. I educated and
demonstrated on insulin injection technique, timing, and storage. Discussed long and short acting insulin; onset/peak/duration, and encouraged him to administer self injections with RN supervision while admitted. Provided RN with insulin pen
needles to assist patient with self administration. Discussed normal target glucose ranges and a monitoring schedule 15 minutes before each meal when prescribed Novolog, and before bedtime. He states that he does not eat regular meals, just
picks at junk food throughout the day, unwilling to change his diet.
Encouraged patient to follow up with PCP for post d/c appointment and to monitor medication and blood glucose levels. Provided list of endocrinologists if desired, to contact insurance company to verify in network status. Requested a
prescription for blood sugar testing supplies to be sent to his pharmacy on record. Patient verbalized understanding.
[2025-04-24 17:19] LABS: Glucose - Point of Care 237 mg/dl (70-99)
[2025-04-24] MEDS: PRAVACHOL 40 MG PO (17:19)
[2025-04-24] MEDS: FLOMAX 0.4 MG PO (17:19)
[2025-04-24] MEDS: SENOKOT 17.2 MG PO (17:20)
[2025-04-24 20:56] LABS: Glucose - Point of Care 78 mg/dl (70-99)
[2025-04-25 02:51] VITALS: BP 108/55
[2025-04-25 06:00] VITALS: BMI 36.5
[2025-04-25 07:05] VITALS: BP 125/71
[2025-04-25 07:09] LABS: Glucose - Point of Care 167 mg/dl (70-99)
--- NOTE | 2025-04-25 07:44 | PN.DE.MGMTRT ---
Insulin Management
- -
04/25/2025: Diabetes Management Follow up
79 year old male admitted 04/20 for elective explant of InterStim device and suprapubic tube placement but was found to be hypoxic with significant hyperglycemia, 578; procedures were aborted. PMH: CVA, Dementia, A-fib, CHF, CAD, HTN, HLD,
Neurogenic bladder, BPH, spinal stenosis, Diabetes mellitus, GI bleed, orthostatic hypotension, BETSEY, frequent UTIs, vascular dementia.
Patient does relate that he has been having shortness of breath and cough for the last couple of days and today he noticed that his cough was worse. CRX showed significant right-sided pneumonia.
Of note, pt had been taking Metformin 500 mg as of his last hospital visit in 01/2025 but it is not clear when he stopped taking it.
A1C 11.2%, Cr 0.8, eGFR >60
Pt awake, alert, resting in bed, offers no complaints, able to discuss diabetes care plan.
States he doesn't have a glucose monitor and does not test his blood sugars at home, nor adhere to a diabetic diet.
Yesterday Diabetes regimen includes Lantus 18 units in AM, NovoLog 8 units AC and low corrective insulin with meals.
Glucose was 226 to 232, received 2-3 units of corrective insulin.
Metformin 1000 mg BID started on 04/23 with dinner and Januvia 100mg started yesterday morning, in hopes of transitioning off bolus meal insulin to combination Lantus and oral regimen, if his blood glucose improves. HS glucose improved to 78 and
fasting 167 today.
Will stop AC NovoLog after breakfast dose and increase Lantus to 20 units daily in AM. This is to make it less complex for him at home, given declining mental status in this patient of advanced age. Pt's Dtr states she should be able to assist pt
with Lantus dose administration.
Meds at discharge: Lantus to 20 units daily in AM, Metformin 1000 mg BID and Januvia 100mg daily
Discussed with Dr. Dozier and Nurse. .
family living educator to instruct patient on insulin administration and monitor instructions.
Diabetes History
- -
Type of Diabetes: 2 requiring insulin
Pre-Admission Diabetes Regimen
Lab Results
Hemoglobin A1c 11.2 % (4.0-5.9) H 04/21/25 05:33
Insulin Pump Settings
IP Diabetes Regimen
04/24/25 04/24/25 04/24/25
08:06 12:20 17:18
POC Glucose 272 H 226 H 237 H
04/24/25 04/25/25
20:55 07:08
POC Glucose 78 167 H
Meal type: Breakfast
Amount consumed: 100%
Patient Education
[2025-04-25] MEDS: LASIX 80 MG PO (09:48)
[2025-04-25] MEDS: TYLENOL 1000 MG PO (09:48)
[2025-04-25] MEDS: LEXAPRO 5 MG PO (09:49)
--- NOTE | 2025-04-25 09:50 | W.PN.HOSP.TC ---
Today's Communication/Plan
-
dc
Assessment / Plan
Assessment / Plan
Physical exam:
General: not in distress. Sitting in chair , comfortable
HEENT: Normocephalic, Atraumatic and Moist Mucous Membranes
Respiratory: no rhonchi; Negative Wheezes, no Rales
Cardiac: Regular Rhythm and S1/S2
GI: Soft, Nontender and Nondistended
Musculoskeletal: No Clubbing, No Cyanosis and some lower extremity edema
Neuro: Awake, Alert and Oriented, forgetful, no neurological deficits
Psych: Calm but cognitive deficit
A/P:
Acute hypoxic respiratory insufficiency: Clinically not consistent with pneumonia, lack of cough, respiratory complaints but could be evolving pneumonia on admission/atelectasis/we treated him as pneumonia.
Respiratory culture, no growth.
Repeat x-ray showed Improved bibasilar opacities most likely representing resolving subsegmental atelectasis and/or pneumonia.
On room air now, resolved.
Antibiotic for 7 days
Incentive spirometer
PT OT eval and recommend skilled rehab but family declined
Speech evaluated the patient, ok to resume regular diet with thin liquids.
Discussed with daughter.
Diabetes mellitus type II:
Better controlled
Started back on metformin but higher dose
Started on Januvia
c/w Lantus
Discussed at length with diabetic nurse practitioner, appreciate help. For outpatient follow-up
Daughter said metformin was stopped upon admission to [facility] in August 2024 but our records showing no such recommendations and metformin was unchanged upon discharge.
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
# Spinal stenosis, chronic back pain, right foot drop
Lymphedema
Patient is scheduled to have back surgery at [place] with Dr. Venkat Whitehead. Patient was told to hold anticoagulation 8 days prior to surgery. I received call 04/23 from neurosurgery office, physician facility assistant Gudelia about patient's situation.
Current medical issues should not be prohibitive for him to have back surgery. I informed her that to obtain complete medical clearance for surgery, should go to primary care doctor.
BPH and urinary retention:
Continue Flomax
Hyponatremia:
Chronic HFmrEF:
Continue oral diuretics
Monitor daily weights
Persistent to permanent atrial fibrillation:
Anticoagulation on hold, Eliquis due to upcoming urological procedure
Not on rate control agents
CAD:
Continue home anti-ischemic regimen
Chest pain-free
Orthostatic hypotension:
Continue midodrine
Peripheral vascular disease:
Continue statins and resume anticoagulation when feasible
History of CVA:
Continue statins and resume anticoagulation after back surgery.
History of vascular dementia:
Monitor mental status and behavior closely
DVT prophylaxis:
Will do Heparin SQ while in hospital.
Discussed with urology and procedure went well and to keep anticoagulation on hold until 04/25/2025. According to daughter, pt is scheduled to have back surgery with Dr Whitehead at [place], was told to hold Eliquis 7 days prior to surgery which will be
included in this period.
CODE STATUS:
Full code
Total discharge time spent to see the patient, examine the patient, review data and lab results, discuss treatment plan with patient, daughter nursing staff around 67 minutes
Anticipated Discharge: Today
Subjective/Interval History
-
Date of Service: April 25, 2025
No chest pain
No sob
No cough
No abdominal pain
He wants to go home
Objective Data
-
Vital Signs:
Vital Signs
Temp Pulse Resp BP Pulse Ox
98.5 F 66 18 125/71 97
04/25/25 07:05 04/25/25 07:05 04/25/25 07:05 04/25/25 07:05 04/25/25 07:05
I&O
04/24/25 04/25/25 04/26/25
06:59 06:59 06:59
Intake Total 960 / 960
Output Total 1350 / 1350 2300 / 2300
Balance -1350 / -1350 -1340 / -1340
[2025-04-25] MEDS: JANUVIA 100 MG PO (09:51)
[2025-04-25] MEDS: GLUCOPHAGE 1000 MG PO (09:52)
[2025-04-25] MEDS: NOVOLOG FLEXPEN-LOW RESISTANCE 1 UNITS SC (09:55)
[2025-04-25] MEDS: NOVOLOG FLEXPEN 8 UNITS SC (09:56)
[2025-04-25] MEDS: LANTUS SC (10:00)
[2025-04-25] MEDS: NEURONTIN 300 MG PO (10:00)
[2025-04-25] MEDS: DESENEX/MITRAZOL/ZEASORB 1 APPLIC TOPICAL (10:03)
[2025-04-25] MEDS: BACITRACIN OINTMENT 1 APPLIC TOPICAL (10:03)
[2025-04-25 11:07] VITALS: BP 119/63
[2025-04-25] MEDS: LANTUS 0.2 UNITS SC (11:21)
[2025-04-25 11:41] LABS: Glucose - Point of Care 227 mg/dl (70-99)
--- NOTE | 2025-04-25 12:39 | CM ---
Cm spoke with patient and daughter (by telephone). Patient is for discharge home today. He will be returning home with . He has daily caregiver. He has been referred back to [facility] for resumption of care. His caregiver will
provide transportation home. Offered to arrange ambulance tranport home but daughter declined. IMM given to patient.
Plan: Home with spouse, caregiver, resumption of care [facility]
--- NOTE | 2025-04-26 10:29 | W.PN.UPDATE ---
Update Note
Progress Note Update
I received a call from nurse wound care of the patient, asking about dose of Lantus. Also I advised him to follow instructions and if he was wondering about the brand of pen, he should reach out to pharmacy.
End
--- NOTE | 2025-04-26 10:46 | W.PN.UPDATE ---
Update Note
Progress Note Update
I received a call from the daughter asking about 2 things. First thing: pain level, last time he took oxycodone in the hospital. Second question about diet. Patient does not follow calorie controlled diet with longstanding history of diabetes.
Advised to follow same diet he was taking at the hospital until they see primary care doctor or museum educator in the office.
--- NOTE | 2025-04-26 10:48 | W.DCSUMMARY ---
Discharge Summary
Discharge Data
Date of Admission: 04/20/25
Date of Discharge: 04/25/25
-
Pending Results: No
Hospital Course
79 years old male who was undergoing suprapubic catheter placement but was noticed to have hypoxia and hyperglycemia. Procedure was aborted and medical service was asked to evaluate the patient. Chest radiograph showed possible right lower side
atelectasis/pneumonia. He had blood glucose around 578. 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 Patient was admitted to the hospital. He had no evidence of diabetic ketoacidosis. He was started on insulin
treatment with adjustments. He was started on calorie controlled diet. He was started on empiric antibiotic for possible pneumonia. Urology did placement of suprapubic catheter with no complications. Patient stayed in the hospital for a few days
to manage his diabetes. He was seen by diabetic nurse practitioner. Patient was started on higher dose metformin, Januvia and Lantus. Due to underlying cognitive issue, patient was felt not to be candidate to do Premeal insulin/sliding scale.
Patient and daughter were advised to follow-up with a primary care doctor or diabetes clinic at our facility for further management of his diabetes. Daughter was asking about option to use Mounjaro or other similar medications. Regarding his
pneumonia, he did not have further hypoxia. He did not have cough or shortness of breath. He finish course of antibiotic for possible pneumonia. Speech saw the patient and did not recommend modified diet. Patient was evaluated by physical
therapy and recommended custodial facility. Patient and daughter wanted to go home with caregiver and declined SNF placement. Patient is scheduled to have back surgery at [place], systemic anticoagulation did not resume due to pending back
surgery per back surgeon recommendations. Patient remained hemodynamically stable and was discharged home in a stable condition.
Discharge Plan
-
Patient Disposition: Home with Home Care
Discharge Diagnosis/Procedures: -You are seen by urologist.Status post suprapubic tube placement.
- You had mild hypoxia and you were treated for possible pneumonia/bronchitis. Finish course of antibiotic at home.
- You had uncontrolled blood glucose. You were seen by diabetic nurse practitioner, we started you on new medications as follow.
- Insulin, Lantus, long-acting insulin. Take once a day in the morning.
-Januvia, oral hypoglycemic agent. Take once a day
-Metformin, oral hypoglycemic agent,take 1 pill twice a day. Metformin can be held prior to surgery.
Monitor your blood glucose and follow-up with your primary care doctor. You can follow with diabetic clinic at [phone] ( Address: [address] [place] [phone])
- You are scheduled to have back surgery on May 01, We placed to resume on 05/02 but this is not confirmed date. Hold Eliquis until you are advised to resume it by the surgoen after back surgery.
Diet: Diabetic, Carb Controlled
Activity Restrictions/Additional Instructions:
Follow up with Dr. Gomez in 6 weeks for first suprapubic tube change
Dressing over the tube can be changed if needed for any bleeding/drainage
The dressing can be removed if area is dry after 48 hours
Some drainage of small amounts of fluid or mucus is common for a few months after tube placement while the area is healing
Some blood in urine off and on is not uncommon during healing
Apply antibiotic ointment (Bacitracin or Neosporin) to penis wound twice daily for 2 weeks
Okay to resume Eliquis on 04/25 as long as bleeding has stopped
Sacral/coccyx ulcers-clean with saline or soap and water, silicone border foam, change every 3 days and as needed for loosened dressing.
L medial ischial ulcer-clean with saline or soap and water, silicone border foam, change every 3 days and as needed for loosened dressing.
L arm skin tear, R martines skin tear-clean with saline or soap and water, silicone border foam, change every 3 days and as needed for loosened dressing.
Miconazole powder to abdominal/groin folds twice a day.
Bilateral knee high Tubigrip as tolerated; remove at bedtime; reapply every morning.
Pressure redistributing chair cushion (i.e Roho).
Air mattress if sleeps in bed.
Elevate heels off bed with pillows.
Referrals:
Hari Gomez MD [Active, Urology] - in four to six weeks
Referral Note: Follow-up for suprapubic tube change
UNKNOWN,NO INTERVIEW [Family Provider]
Prescriptions:
New
insulin glargine [Lantus Solostar U-100 Insulin] 100 unit/mL (3 mL) insulin pen
20 unit SC DAILY Qty: 15 0RF
metformin 1,000 mg Tablet
1,000 mg PO BID@0800,1700 Qty: 60 0RF
Januvia 100 mg Tablet
100 mg PO DAILY Qty: 30 0RF
cefdinir 300 mg capsule
300 mg PO Q12H Qty: 6 0RF
Continued
pravastatin 40 mg Tablet
40 mg PO QPM
Gemtesa 75 mg Tablet
75 mg PO DAILY
gabapentin 300 mg capsule
300 mg PO QID
Rx Instructions:
as of 08/11/24 start bid for 1 week to wean off medication
midodrine 5 mg Tablet
5 mg PO TID@0800,1200,1600 30 Days Qty: 90 0RF
Rx Instructions:
hold if SBP >160 or DBP >110
albuterol sulfate 90 mcg/actuation HFA aerosol inhaler
2 puff inhalation R Q6HPRN PRN (Reason: shortness of breath or wheezing)
acetaminophen [Tylenol Extra Strength] 500 mg Tablet
1,000 mg PO TID Qty: 90 0RF
furosemide 20 mg tablet
80 mg PO DAILY
oxycodone 5 mg Tablet
5 mg PO Q4H PRN (Reason: discomfort)
sennosides [senna] 8.6 mg Tablet
8.6 mg PO BID PRN (Reason: constipation)
tamsulosin 0.4 mg Capsule
0.4 mg PO QPM
escitalopram oxalate [Lexapro] 5 mg Tablet
5 mg PO DAILY
guaifenesin [Mucinex] 600 mg Tablet Extended Release 12hr
600 mg PO BID PRN (Reason: cough)
Held
Eliquis 5 mg Tablet
5 mg PO BID Qty: 60 0RF
Hold Instructions: Resume on 05/02/25. You are scheduled to have back surgery and recommendation to hold Eliquis until it is resumed by surgery team.
Discharge Orders:
Discharge Patient (As Directed); Ordered 04/25/25
Ordered By: Eden Dozier
Discharge Date and Time
Discharge Date/Time: 04/25/25 13:54
Print Language: GABONESE
--- NOTE | 2025-04-26 11:03 | W.PN.UPDATE ---
Update Note
Progress Note Update
I received a call from the daughter stating that there was a problem with suprapubic catheter and the patient was uncomfortable. She did not reach out to his urologist I advised her to call urology office, they should have answering service.
== END 2025-04-25 13:54 | disposition home health service (06) | DRG 981 ==
LOC: 4 WEST ACU 13:00
PROVIDERS: ADMITTING PHYSICIAN Hospitalist; ATTENDING PHYSICIAN Internal Medicine; CONSULT PHYSICIAN Urology
PROC: 0TP Urinary System, Removal (ICD-10-PCS; 2025-04-22)
PROC: 0T9B00Z Drainage of Bladder with Drainage Device, Open Approach (ICD-10-PCS; 2025-04-22)
PROC: 0JPT0MZ Removal of Stimulator Generator from Trunk Subcutaneous Tissue and Fascia, Open Approach (ICD-10-PCS; 2025-04-22)
DX: E11.65 Type 2 diabetes mellitus with hyperglycemia (principal); J18.9 Pneumonia, unspecified organism; E87.1 Hypo-osmolality and hyponatremia; I50.22 Chronic systolic (congestive) heart failure; I48.21 Permanent atrial fibrillation; J98.11 Atelectasis; F01.53 Vascular dementia, unspecified severity, with mood disturbance; Z87.891 Personal history of nicotine dependence; R09.02 Hypoxemia; R06.89 Other abnormalities of breathing; E11.36 Type 2 diabetes mellitus with diabetic cataract; E11.649 Type 2 diabetes mellitus with hypoglycemia without coma; E11.40 Type 2 diabetes mellitus with diabetic neuropathy, unspecified; E11.51 Type 2 diabetes mellitus with diabetic peripheral angiopathy without gangrene; I11.0 Hypertensive heart disease with heart failure; I95.1 Orthostatic hypotension; N31.9 Neuromuscular dysfunction of bladder, unspecified; M54.9 Dorsalgia, unspecified; G89.29 Other chronic pain; Z53.9 Procedure and treatment not carried out, unspecified reason; Z79.01 Long term (current) use of anticoagulants; Z79.4 Long term (current) use of insulin; Z79.899 Other long term (current) drug therapy; Z86.73 Personal history of transient ischemic attack (TIA), and cerebral infarction without residual deficits; Z87.440 Personal history of urinary (tract) infections
CPT/HCPCS: 71045; 80048; 80053; 82947; 82962; 83036; 85025; 87070; 87205; 92526; 92610; 93005; 94660; 97110; 97116; 97163; 97167